=== PATIENT | male | born 1935 | race Caucasian/White ===

== ENCOUNTER → 2020-06-02 08:50 | Outpatient (BNVA) | payer MEDICARE, OTHER, SELFPAY | PROVIDERS: Visit Provider Internal Medicine | DX: I48.20 Chronic atrial fibrillation, unspecified (principal); Z51.81 Encounter for therapeutic drug level monitoring; Z79.01 Long term (current) use of 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s | CPT/HCPCS: 85610; 99211 ==

== ENCOUNTER → 2020-06-13 09:23 | Outpatient (BNVA) | payer MEDICARE, OTHER, SELFPAY | PROVIDERS: Visit Provider Surgery | DX: Z76.89 Persons encountering health services in other specified circumstances (principal) ==

== ENCOUNTER → 2020-06-30 09:02 | Outpatient (BNVA) | payer MEDICARE, OTHER, SELFPAY | PROVIDERS: Visit Provider Internal Medicine | DX: I48.20 Chronic atrial fibrillation, unspecified (principal); Z51.81 Encounter for therapeutic drug level monitoring; Z79.01 Long term (current) use of 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s | CPT/HCPCS: 85610; 99211 ==

== ENCOUNTER → 2020-07-28 08:21 | Outpatient (BNVA) | payer MEDICARE, OTHER, SELFPAY | PROVIDERS: Visit Provider Internal Medicine | DX: I48.20 Chronic atrial fibrillation, unspecified (principal); Z51.81 Encounter for therapeutic drug level monitoring; Z79.01 Long term (current) use of 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s | CPT/HCPCS: 85610; 99211 ==

== ENCOUNTER → 2020-08-25 08:55 | Outpatient (BNVA) | payer MEDICARE, OTHER, SELFPAY | PROVIDERS: Visit Provider Internal Medicine | DX: I48.20 Chronic atrial fibrillation, unspecified (principal); Z51.81 Encounter for therapeutic drug level monitoring; Z79.01 Long term (current) use of 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s | CPT/HCPCS: 85610; 99211 ==

== ENCOUNTER → 2020-09-30 08:44 | Outpatient (BNVA) | payer MEDICARE, OTHER, SELFPAY | PROVIDERS: PCP Internal Medicine; Visit Provider Internal Medicine | DX: I48.20 Chronic atrial fibrillation, unspecified (principal); Z51.81 Encounter for therapeutic drug level monitoring; Z79.01 Long term (current) use of 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s | CPT/HCPCS: 85610; 99211 ==

== ENCOUNTER → 2020-10-28 08:57 | Outpatient (BNVA) | payer MEDICARE, OTHER, SELFPAY | PROVIDERS: PCP Internal Medicine; Visit Provider Internal Medicine | DX: I48.20 Chronic atrial fibrillation, unspecified (principal); Z51.81 Encounter for therapeutic drug level monitoring; Z79.01 Long term (current) use of 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s | CPT/HCPCS: 85610; 99211 ==

== ENCOUNTER → 2020-12-02 08:37 | Outpatient (BNVA) | payer MEDICARE, OTHER, SELFPAY | PROVIDERS: PCP Internal Medicine; Visit Provider Internal Medicine | DX: I48.20 Chronic atrial fibrillation, unspecified (principal); Z51.81 Encounter for therapeutic drug level monitoring; Z79.01 Long term (current) use of 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s | CPT/HCPCS: 85610; 99211 ==

== ENCOUNTER 2020-12-05 09:00 | Outpatient (REF) | payer MEDICARE, OTHER, SELFPAY ==
[2020-12-05 11:28] LABS: MANUAL DIFF FLAG NO
[2020-12-05 11:41] LABS: Basophils Percent Auto 0.5 % (0-2); Eosinophils Absolute Auto 0.1 X10*3/uL (0.0-0.4); Eosinophils Percent Auto 1.4 % (0-4); Hematocrit 42.9 % (42-52); Hemoglobin 13.6 g/dl (14.0-18.0); Imm Gran Abs Auto 0.01 X10*3/uL (0.00-0.03); Imm Gran Pct Auto 0.2 % (0.0-0.4); Lymphocytes Absolute Auto 2.1 X10*3/uL (1.2-4.9); Lymphocytes Percent Auto 37.5 % (20-40); Mean Corpuscular HGB Conc 31.7 g/dl (31.0-36.0); Mean Corpuscular Hemoglobin 28.8 pg (27.0-33.0); Mean Corpuscular Volume 90.9 fL (80-98); Mean Platelet Volume 10.7 fL (9.4-12.4); Monocytes Absolute Auto 0.4 X10*3/uL (0.1-1.2); Monocytes Percent Auto 7.2 % (2-11); Neutrophils Percent Auto 53.2 % (45-73); Platelet Count 200 X10*3/uL (160-400); Red Blood Count 4.72 X10*6/uL (4.60-5.80); Red Cell Distribution Width 13.4 % (11.0-16.0); White Blood Count 5.6 X10*3/uL (4.8-10.8)
[2020-12-05 11:51] LABS: Alanine Aminotransferase 19 U/L (0-40); Albumin Level 4.1 g/dL (3.5-5.0); Alkaline Phosphatase 39 U/L (39-117); Anion Gap 13 (12-20); Aspartate Amino Transferase 25 U/L (5-37); Bilirubin Total 0.8 mg/dL (0.0-1.0); Blood Urea Nitrogen 17 mg/dL (9-16); Calcium 8.8 mg/dL (8.4-10.2); Carbon Dioxide 30 mmol/L (22-29); Chloride 100 mmol/L (96-108); Cholesterol 156 mg/dL; Estimated Glomerular Filt Rate > 60; Glucose Fasting 99 mg/dL (60-99); HDL Cholesterol 51 mg/dL; LDL Cholesterol Calculated 93 mg/dl; Potassium 4.2 mmol/L (3.3-5.1); Sodium 139 mmol/L (135-145); Triglycerides 60 mg/dL
== END 2020-12-05 09:01 | disposition home or self-care (01) ==
LOC: HO.HMGCLDS 09:00
PROVIDERS: PCP Internal Medicine; Visit Provider Internal Medicine
DX: Z00.00 Encounter for general adult medical examination without abnormal findings (principal); E11.9 Type 2 diabetes mellitus without complications; E03.9 Hypothyroidism, unspecified
CPT/HCPCS: 36415; 80053; 80061; 84443; 85025

== ENCOUNTER 2020-12-10 12:01 | Outpatient (REF) | payer MEDICARE, OTHER, SELFPAY ==
--- NOTE | ~2020-12-10 | XR_ITS ---
EXAMINATION: XR WRIST, LEFT CLINICAL INFORMATION: Pain COMPARISON: 05/06/2020 TECHNIQUE: PA, lateral, oblique, and scaphoid views of the left wrist. FINDINGS: No acute fracture or dislocation. Severe degenerative changes of the triscaphe joint with [id number] contact and marginal osteophytes with periarticular heterotopic calcification. Moderate first CMC arthrosis. Soft tissues unremarkable. 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
== END 2020-12-10 12:02 | disposition home or self-care (01) ==
LOC: HO.XRAY 12:01
PROVIDERS: PCP Internal Medicine; Visit Provider Internal Medicine
DX: M25.532 Pain in left wrist (principal); M18.12 Unilateral primary osteoarthritis of first carpometacarpal joint, left hand; E11.9 Type 2 diabetes mellitus without complications
CPT/HCPCS: 73100

== ENCOUNTER → 2020-12-30 09:11 | Outpatient (BNVA) | payer MEDICARE, OTHER, SELFPAY | PROVIDERS: PCP Internal Medicine; Visit Provider Internal Medicine | DX: I48.20 Chronic atrial fibrillation, unspecified (principal); Z51.81 Encounter for therapeutic drug level monitoring; Z79.01 Long term (current) use of 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s | CPT/HCPCS: 85610; 99211 ==

== ENCOUNTER → 2021-01-12 13:19 | Outpatient (BNVA) | payer MEDICARE, OTHER, SELFPAY | PROVIDERS: PCP Internal Medicine; Referring Provider Internal Medicine; Visit Provider Internal Medicine Cardiovascular Disease | DX: Z45.018 Encounter for adjustment and management of other part of cardiac pacemaker (principal); I48.91 Unspecified atrial fibrillation; I10 Essential (primary) hypertension | CPT/HCPCS: 93005; 99202 ==

== ENCOUNTER → 2021-01-14 12:58 | Outpatient (REF) | payer MEDICARE, OTHER, SELFPAY ==
--- NOTE | 2021-01-14 13:02 | CA_ITS ---
Transthoracic Echocardiogram Patient (Last, First, Middle): Zander Espinal L Gender: Male Date of : 1935 Age: 85 Procedure Date: 01/14/2021 Procedure Type: Transthoracic Echocardiogram Location: OP Height: 190.5 cm Weight: 99.79 kg BSA: 2.29 m2 Heart Rate: bpm BP: 112 / 60 mmHg Shuttlecock Assembler: MAYE/JUNIOR Referring MD: Delfino Fry MD Packing Tractor Machine Operator: Silvino Wilson MD Symptoms: I42.9 - Cardiomyopathy, unspecified Study Quality: Good ECG Rhythm: Atrial Fibrillation Conclusions: - 1. Normal LV systolic function 2. Mildly to moderately dilated left atrium 3. Mild aortic regurgitation 4. Mild mitral regurgitation 5. Normal RV systolic pressure 6. No pericardial effusion Findings Left Ventricle Normal left ventricular size, thickness, and systolic function. The visually estimated ejection fraction is between 55-60%. Diastolic function is indeterminate on the basis of available data. Right Ventricle The right ventricle was not well visualized. Atria The left atrium is moderately dilated. There is lipomatous hypertrophy of the interatrial septum. There is no evidence of interatrial shunt. The right atrium is mildly dilated. Aortic Valve There is mild calcification of the aortic valve. There is mild thickening of the aortic valve. There is no aortic valve stenosis. There is mild aortic valve regurgitation. Mitral Valve There is mild anterior and posterior mitral leaflet thickening. There is mild mitral annular calcification. There is mild mitral valve regurgitation. There is no mitral valve stenosis. Pulmonic Valve The pulmonic valve was not well visualized. Tricuspid Valve Likely normal tricuspid valve structure and function. There is mild tricuspid valve regurgitation. The right ventricular systolic pressure is normal. The right ventricular systolic pressure is 33 mmHg. Normal right atrial pressure. There is no evidence of pulmonary hypertension. Great Vessels All visible segments of the aorta are normal in size. The pulmonary artery was not well visualized. Venous The inferior vena cava is normal in size and collapses greater than 50% with inspiration. Pericardium/Pleural There is no evidence of pericardial effusion. Prior Study Comparison No significant change compared to prior study dated: 12/13/2016. Measurements 2D Linear Measurements IVSd: 1.14 0.6-0.9/0.6-1.0 cm LVIDd: 5.11 3.9-5.3/4.2-5.9 cm LVIDd Index: 2.23 2.4-3.2/2.2-3.1 cm/m2 LVIDs: 3.79 2.0-3.6 cm LVPWd: 1.11 0.7-1.1 cm Ao Root: 3.40 2.1-3.5 cm LA Diam: 4.80 2.7-3.8/3.0-4.0 cm LAIDs Index: 2.10 1.5-2.3 cm/m2 LV Mass: 275.87 67-162/88-224 g LV Mass Index: 120.47 43-95/49-115 g/m2 LVOT Diam: 2.00 3.0+(-)1.3 cm 2D Systolic Function EF 4C: 57.00 >55% EF 2C: 57.00 >55% EF BiP: 58.10 >55% Mitral Valve E'Lateral: 8.49 E'Medial: 9.14 Aortic Valve AoV Pk Jorgito: 1.45 AoV Mn Jorgito: 1.02 AoV VTI: 0.32 AoV Pk Grad: 8.00 Aov Mn Grad: 5.00 AMBER Cont.VTI: 2.37 LVOT LVOT Pk Jorgito: 1.06 LVOT Mn Jorgito: 0.77 LVOT VTI: 0.24 LVOT Pk Grad: 4.00 LVOT Mn Grad: 3.00 LVOT Diam: 2.00 LVOT Area: 3.14 Diastolic Function E'Medial: 9.14 E' Laterial: 8.49 Tricuspid Valve TR Pk Jorgito: 2.74 TR Pk Grad: 30.00 RA Press: 3.00 RVSP: 33.00 Great Vessels Aorta Ao Root-2D: 3.40 2.0-3.7 cm Ao Asc: 3.90 2.1-3.4 cm Ao Arch: 3.00 Updated in Other Vendor System with Status of Final Silvino Wilson MD electronically signed on 01/15/2021 5:23:29 PM with status of Final
== END ==
LOC: HO.CARD 12:58
PROVIDERS: Visit Provider Internal Medicine Cardiovascular Disease
DX: I42.9 Cardiomyopathy, unspecified (principal); I48.91 Unspecified atrial fibrillation
CPT/HCPCS: 93306

== ENCOUNTER → 2021-01-27 08:48 | Outpatient (BNVA) | payer MEDICARE, OTHER, SELFPAY | PROVIDERS: PCP Internal Medicine; Visit Provider Internal Medicine | DX: I48.20 Chronic atrial fibrillation, unspecified (principal); Z51.81 Encounter for therapeutic drug level monitoring; Z79.01 Long term (current) use of 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s | CPT/HCPCS: 85610; 99211 ==

== ENCOUNTER → 2021-02-24 09:06 | Outpatient (BNVA) | payer MEDICARE, OTHER, SELFPAY | PROVIDERS: PCP Internal Medicine; Visit Provider Internal Medicine | DX: I48.20 Chronic atrial fibrillation, unspecified (principal); Z51.81 Encounter for therapeutic drug level monitoring; Z79.01 Long term (current) use of 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s | CPT/HCPCS: 85610; 99211 ==

== ENCOUNTER → 2021-03-02 08:37 | Outpatient (BNVA) | payer MEDICARE, OTHER, SELFPAY | PROVIDERS: PCP Internal Medicine; Visit Provider Internal Medicine | DX: I48.20 Chronic atrial fibrillation, unspecified (principal); Z51.81 Encounter for therapeutic drug level monitoring; Z79.01 Long term (current) use of 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s | CPT/HCPCS: 85610; 99211 ==

== ENCOUNTER → 2021-03-17 08:45 | Outpatient (BNVA) | payer MEDICARE, OTHER, SELFPAY | PROVIDERS: PCP Internal Medicine; Visit Provider Internal Medicine | DX: I48.20 Chronic atrial fibrillation, unspecified (principal); Z79.01 Long term (current) use of 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s; Z51.81 Encounter for therapeutic drug level monitoring | CPT/HCPCS: 85610; 99211 ==

== ENCOUNTER → 2021-04-14 08:14 | Outpatient (BNVA) | payer MEDICARE, OTHER, SELFPAY | PROVIDERS: PCP Internal Medicine; Visit Provider Internal Medicine | DX: I48.20 Chronic atrial fibrillation, unspecified (principal); Z51.81 Encounter for therapeutic drug level monitoring; Z79.01 Long term (current) use of 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s | CPT/HCPCS: 85610; 99211 ==

== ENCOUNTER → 2021-05-12 08:30 | Outpatient (BNVA) | payer MEDICARE, OTHER, SELFPAY | PROVIDERS: PCP Nurse Practitioner Family; Visit Provider Internal Medicine | DX: I48.20 Chronic atrial fibrillation, unspecified (principal); Z51.81 Encounter for therapeutic drug level monitoring; Z79.01 Long term (current) use of 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s | CPT/HCPCS: 85610; 99211 ==

== ENCOUNTER → 2021-05-26 09:14 | Outpatient (BNVA) | payer MEDICARE, OTHER, SELFPAY | PROVIDERS: PCP Nurse Practitioner Family; Visit Provider Internal Medicine | DX: I48.20 Chronic atrial fibrillation, unspecified (principal); Z51.81 Encounter for therapeutic drug level monitoring; Z79.01 Long term (current) use of 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s | CPT/HCPCS: 85610; 99211 ==

== ENCOUNTER 2021-06-15 06:49 | Outpatient (REF) | payer MEDICARE, OTHER, SELFPAY ==
[2021-06-15 11:43] LABS: Appearance Urine CLEAR; Color Urine YELLOW; Glucose Urine UA NEG (NEG); Leukocyte Esterase Urine NEG (NEG); Nitrite Urine NEG (NEG); Specific Gravity - Urine 1.015 (1.005-1.025); Urine Blood NEG (NEG); Urine Ketones NEG (NEG); Urine Protein NEG (NEG-TRACE)
[2021-06-15 12:02] LABS: Alanine Aminotransferase 22 U/L (0-40); Alkaline Phosphatase 37 U/L (39-117); Anion Gap 12 (12-20); Aspartate Amino Transferase 26 U/L (5-37); Bilirubin Total 1.1 mg/dL (0.0-1.0); Blood Urea Nitrogen 14 mg/dL (9-16); Calcium 8.9 mg/dL (8.4-10.2); Carbon Dioxide 29 mmol/L (22-29); Chloride 101 mmol/L (96-108); Cholesterol 160 mg/dL; Estimated Glomerular Filt Rate > 60; Glucose Fasting 103 mg/dL (60-99); HDL Cholesterol 50 mg/dL; LDL Cholesterol Calculated 94 mg/dl; Potassium 3.7 mmol/L (3.3-5.1); Sodium 138 mmol/L (135-145); Total Protein 6.8 g/dL (6.5-8.0); Triglycerides 80 mg/dL
[2021-06-15 12:26] LABS: TSH reflex Free T4 2.95 uIU/mL (0.32-4.0)
== END 2021-06-15 06:50 | disposition home or self-care (01) ==
LOC: HO.HMGCLDS 06:49
PROVIDERS: PCP Nurse Practitioner Family; Visit Provider Nurse Practitioner Family
DX: Z00.00 Encounter for general adult medical examination without abnormal findings (principal)
CPT/HCPCS: 36415; 80053; 80061; 81003; 84443

== ENCOUNTER 2021-06-16 07:04 | Outpatient (REF) | payer MEDICARE, OTHER, SELFPAY ==
[2021-06-16 12:17] LABS: Cholesterol 168 mg/dL; HDL Cholesterol 52 mg/dL; LDL Cholesterol Calculated 101 mg/dl; Triglycerides 77 mg/dL
== END 2021-06-16 07:05 | disposition home or self-care (01) ==
LOC: HO.HMGCLDS 07:04
PROVIDERS: PCP Nurse Practitioner Family; Visit Provider Internal Medicine
DX: Z12.5 Encounter for screening for malignant neoplasm of prostate (principal); E11.9 Type 2 diabetes mellitus without complications
CPT/HCPCS: 36415; 80061; 84153

== ENCOUNTER → 2021-06-24 08:10 | Outpatient (BNVA) | payer MEDICARE, OTHER, SELFPAY | PROVIDERS: PCP Nurse Practitioner Family; Visit Provider Internal Medicine | DX: I48.20 Chronic atrial fibrillation, unspecified (principal); Z51.81 Encounter for therapeutic drug level monitoring; Z79.01 Long term (current) use of 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s | CPT/HCPCS: 85610; 99211 ==

== ENCOUNTER → 2021-07-09 08:38 | Outpatient (BNVA) | payer MEDICARE, OTHER, SELFPAY | PROVIDERS: PCP Nurse Practitioner Family; Referring Provider Nurse Practitioner Family; Visit Provider Internal Medicine Cardiovascular Disease | DX: I48.91 Unspecified atrial fibrillation (principal); I10 Essential (primary) hypertension | CPT/HCPCS: 99212 ==

== ENCOUNTER → 2021-07-15 08:20 | Outpatient (BNVA) | payer MEDICARE, OTHER, SELFPAY | PROVIDERS: PCP Nurse Practitioner Family; Visit Provider Internal Medicine | DX: I48.20 Chronic atrial fibrillation, unspecified (principal); Z51.81 Encounter for therapeutic drug level monitoring; Z79.01 Long term (current) use of 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s | CPT/HCPCS: 85610; 99211 ==

== ENCOUNTER → 2021-08-17 08:53 | Outpatient (BNVA) | payer MEDICARE, OTHER, SELFPAY | PROVIDERS: PCP Nurse Practitioner Family; Visit Provider Internal Medicine | DX: I48.20 Chronic atrial fibrillation, unspecified (principal); Z51.81 Encounter for therapeutic drug level monitoring; Z79.01 Long term (current) use of 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s | CPT/HCPCS: 85610; 99211 ==

== ENCOUNTER → 2021-09-14 08:58 | Outpatient (BNVA) | payer MEDICARE, OTHER, SELFPAY | PROVIDERS: PCP Nurse Practitioner Family; Visit Provider Internal Medicine | DX: I48.20 Chronic atrial fibrillation, unspecified (principal); Z51.81 Encounter for therapeutic drug level monitoring; Z79.01 Long term (current) use of 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s | CPT/HCPCS: 85610; 99211 ==

== ENCOUNTER → 2021-10-12 08:53 | Outpatient (BNVA) | payer MEDICARE, OTHER, SELFPAY | PROVIDERS: PCP Nurse Practitioner Family; Visit Provider Internal Medicine | DX: I48.20 Chronic atrial fibrillation, unspecified (principal); Z51.81 Encounter for therapeutic drug level monitoring; Z79.01 Long term (current) use of 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s | CPT/HCPCS: 85610; 99211 ==

== ENCOUNTER → 2021-11-09 08:28 | Outpatient (BNVA) | payer MEDICARE, OTHER, SELFPAY | PROVIDERS: PCP Nurse Practitioner Family; Visit Provider Internal Medicine | DX: I48.20 Chronic atrial fibrillation, unspecified (principal); Z51.81 Encounter for therapeutic drug level monitoring; Z79.01 Long term (current) use of 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s | CPT/HCPCS: 85610 ==

== ENCOUNTER → 2021-12-07 08:44 | Outpatient (BNVA) | payer MEDICARE, OTHER, SELFPAY | PROVIDERS: PCP Nurse Practitioner Family; Visit Provider Internal Medicine | DX: I48.20 Chronic atrial fibrillation, unspecified (principal); Z79.01 Long term (current) use of 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s; Z51.81 Encounter for therapeutic drug level monitoring | CPT/HCPCS: 85610; 99211 ==

== ENCOUNTER → 2022-01-11 09:10 | Outpatient (BNVA) | payer MEDICARE, OTHER, SELFPAY | PROVIDERS: PCP Nurse Practitioner Family; Visit Provider Internal Medicine | DX: I48.20 Chronic atrial fibrillation, unspecified (principal); Z79.01 Long term (current) use of 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s; Z51.81 Encounter for therapeutic drug level monitoring | CPT/HCPCS: 85610; 99211 ==

== ENCOUNTER → 2022-02-15 08:58 | Outpatient (BNVA) | payer MEDICARE, OTHER, SELFPAY | PROVIDERS: PCP Nurse Practitioner Family; Visit Provider Internal Medicine | DX: I48.20 Chronic atrial fibrillation, unspecified (principal); Z79.01 Long term (current) use of 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s; Z51.81 Encounter for therapeutic drug level monitoring | CPT/HCPCS: 85610; 99211 ==

== ENCOUNTER → 2022-02-18 08:33 | Outpatient (BNVA) | payer MEDICARE, OTHER, SELFPAY | PROVIDERS: PCP Nurse Practitioner Family; Visit Provider Internal Medicine | DX: I48.20 Chronic atrial fibrillation, unspecified (principal); Z51.81 Encounter for therapeutic drug level monitoring; Z79.01 Long term (current) use of 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s | CPT/HCPCS: 85610; 99211 ==

== ENCOUNTER → 2022-03-01 09:15 | Outpatient (BNVA) | payer MEDICARE, OTHER, SELFPAY | PROVIDERS: PCP Nurse Practitioner Family; Visit Provider Internal Medicine | DX: I48.20 Chronic atrial fibrillation, unspecified (principal); Z51.81 Encounter for therapeutic drug level monitoring; Z79.01 Long term (current) use of 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s | CPT/HCPCS: 85610; 99211 ==

== ENCOUNTER → 2022-03-15 08:47 | Outpatient (BNVA) | payer MEDICARE, OTHER, SELFPAY | PROVIDERS: PCP Nurse Practitioner Family; Visit Provider Internal Medicine | DX: I48.20 Chronic atrial fibrillation, unspecified (principal); Z79.01 Long term (current) use of 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s; Z51.81 Encounter for therapeutic drug level monitoring | CPT/HCPCS: 85610; 99211 ==

== ENCOUNTER → 2022-03-29 08:56 | Outpatient (BNVA) | payer MEDICARE, OTHER, SELFPAY | PROVIDERS: PCP Nurse Practitioner Family; Visit Provider Internal Medicine | DX: I48.20 Chronic atrial fibrillation, unspecified (principal); Z79.01 Long term (current) use of 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s; Z51.81 Encounter for therapeutic drug level monitoring | CPT/HCPCS: 85610; 99211 ==

== ENCOUNTER → 2022-04-13 08:24 | Outpatient (BNVA) | payer MEDICARE, OTHER, SELFPAY | PROVIDERS: PCP Nurse Practitioner Family; Visit Provider Internal Medicine | DX: I48.20 Chronic atrial fibrillation, unspecified (principal); Z79.01 Long term (current) use of 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s; Z51.81 Encounter for therapeutic drug level monitoring | CPT/HCPCS: 85610; 99211 ==

== ENCOUNTER 2022-04-23 08:10 | Outpatient (REF) | payer MEDICARE, OTHER, SELFPAY ==
[2022-04-23 11:24] LABS: MANUAL DIFF FLAG NO
[2022-04-23 11:26] LABS: Appearance Urine Clear; Color Urine Yellow; Glucose Urine UA Negative (Negative); Leukocyte Esterase Urine Negative (Negative); Nitrite Urine Negative (Negative); PH 8.5 (5.0-9.0); Specific Gravity - Urine 1.015 (1.005-1.025); Urine Blood Negative (Negative); Urine Ketones Negative (Negative); Urine Protein Trace mg/dL (Neg-Trace)
[2022-04-23 11:32] LABS: Basophils Percent Auto 0.3 % (0-2); Eosinophils Absolute Auto 0.1 X10*3/uL (0.0-0.4); Eosinophils Percent Auto 2.4 % (0-4); Hematocrit 40.7 % (42.0-52.0); Imm Gran Abs Auto 0.01 X10*3/uL (0.00-0.03); Imm Gran Pct Auto 0.2 % (0.0-0.4); Lymphocytes Absolute Auto 2.6 X10*3/uL (1.2-4.9); Lymphocytes Percent Auto 45.5 % (20-40); Mean Corpuscular HGB Conc 31.9 g/dl (31.0-36.0); Mean Corpuscular Hemoglobin 28.8 pg (27.0-33.0); Mean Corpuscular Volume 90.2 fL (80.0-98.0); Mean Platelet Volume 10.2 fL (9.4-12.4); Monocytes Absolute Auto 0.4 X10*3/uL (0.1-1.2); Monocytes Percent Auto 7.2 % (2-11); Neutrophils Absolute Auto 2.6 x10*3/uL (2.0-8.3); Neutrophils Percent Auto 44.4 % (45-73); Platelet Count 213 X10*3/uL (160-400); Red Blood Count 4.51 X10*6/uL (4.60-5.80); White Blood Count 5.8 X10*3/uL (4.8-10.8)
[2022-04-23 11:35] LABS: D Dimer High Sensitivity 165 NG/ML
[2022-04-23 11:44] LABS: B Type Natriuretic Peptide 80 pg/mL (<100)
[2022-04-23 11:45] LABS: Alanine Aminotransferase 20 U/L (0-40); Alkaline Phosphatase 41 U/L (39-117); Anion Gap 13 (12-20); Aspartate Amino Transferase 24 U/L (5-37); Bilirubin Total 0.9 mg/dL (0.0-1.0); Blood Urea Nitrogen 17 mg/dL (9-16); Calcium 9.3 mg/dL (8.4-10.2); Carbon Dioxide 30 mmol/L (22-29); Chloride 100 mmol/L (96-108); Cholesterol 157 mg/dL; Estimated Glomerular Filt Rate > 60; Glucose Fasting 96 mg/dL (60-99); HDL Cholesterol 49 mg/dL; LDL Cholesterol Calculated 95 mg/dl; Sodium 139 mmol/L (135-145); Total Protein 7.1 g/dL (6.5-8.0); Triglycerides 66 mg/dL
[2022-04-23 12:11] LABS: Prostate Specific Antigen Scr 3.17 ng/mL (<0.05-4.0); TSH reflex Free T4 1.43 uIU/mL (0.32-4.0)
== END 2022-04-23 08:11 | disposition home or self-care (01) ==
LOC: HO.HMGCLDS 08:10
PROVIDERS: PCP Nurse Practitioner Family; Visit Provider Nurse Practitioner Family
DX: Z12.5 Encounter for screening for malignant neoplasm of prostate (principal); E78.5 Hyperlipidemia, unspecified; I10 Essential (primary) hypertension; M79.89 Other specified soft tissue disorders
CPT/HCPCS: 36415; 80053; 80061; 81003; 83880; 84153; 84443; 85025; 85379

== ENCOUNTER → 2022-05-04 08:51 | Outpatient (BNVA) | payer MEDICARE, OTHER, SELFPAY | PROVIDERS: PCP Nurse Practitioner Family; Visit Provider Internal Medicine | DX: I48.20 Chronic atrial fibrillation, unspecified (principal); Z79.01 Long term (current) use of 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s; Z51.81 Encounter for therapeutic drug level monitoring | CPT/HCPCS: 85610; 99211 ==

== ENCOUNTER → 2022-05-14 08:25 | Outpatient (BNVA) | payer MEDICARE, OTHER, SELFPAY | PROVIDERS: PCP Nurse Practitioner Family; Visit Provider Internal Medicine | DX: I48.20 Chronic atrial fibrillation, unspecified (principal); Z79.01 Long term (current) use of 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s; Z51.81 Encounter for therapeutic drug level monitoring | CPT/HCPCS: 85610; 99211 ==

== ENCOUNTER → 2022-06-11 09:04 | Outpatient (BNVA) | payer MEDICARE, OTHER, SELFPAY | PROVIDERS: PCP Nurse Practitioner Family; Visit Provider Internal Medicine | DX: I48.20 Chronic atrial fibrillation, unspecified (principal); Z79.01 Long term (current) use of 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s; Z51.81 Encounter for therapeutic drug level monitoring | CPT/HCPCS: 85610; 99211 ==

== ENCOUNTER → 2022-07-08 08:15 | Outpatient (BNVA) | payer MEDICARE, OTHER, SELFPAY | PROVIDERS: PCP Nurse Practitioner Family; Visit Provider Internal Medicine | DX: I83.11 Varicose veins of right lower extremity with inflammation (principal); I73.9 Peripheral vascular disease, unspecified; Z51.81 Encounter for therapeutic drug level monitoring; Z79.01 Long term (current) use of 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s | CPT/HCPCS: 85610; 99211; 99212 ==

== ENCOUNTER → 2022-07-12 09:08 | Outpatient (BNVA) | payer MEDICARE, OTHER, SELFPAY | PROVIDERS: PCP Nurse Practitioner Family; Referring Provider Nurse Practitioner Family; Visit Provider Internal Medicine Cardiovascular Disease | DX: I48.20 Chronic atrial fibrillation, unspecified (principal); R07.9 Chest pain, unspecified; I10 Essential (primary) hypertension; Z79.01 Long term (current) use of 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s | CPT/HCPCS: 93005; 99212 ==

== ENCOUNTER → 2022-08-06 09:08 | Outpatient (REF) | payer MEDICARE, OTHER, SELFPAY ==
--- NOTE | ~2022-08-06 | NM_ITS ---
Myocardial perfusion study Indication: Chest pain to evaluate for myocardial ischemia Technique: The patient was brought in for a Lexiscan perfusion study on 08/06/2022. Patient performed low-level exercise and was injected 0.4 mg of Lexiscan intravenously. Within a minute of injection, 35 mCi of sestamibi was given intravenously. Images were obtained using the SPECT gamma camera interlaced with the gating device. Images were obtained in supine position. Resting perfusion study was performed on 08/10/2022. Patient was administered 35 mCi of sestamibi intravenously at rest. Images were then obtained in supine position. Images obtained with and without CT attenuation. Total DLP 93 mGy-cm. Images were processed with the software and compared side to side in short axis, horizontal long axis and vertical long axis views. Findings: The stress perfusion study showed non attenuated images show the basal inferior wall of the LV myocardium. Remainder of the LV myocardium is normally perfused. Attenuation corrected images show normal uptake of radiotracer in all segments of LV myocardium.. The gated study shows normal LV function with calculated LVEF of 71%. LV cavity is normal in size. The gated study shows normal systolic wall thickening and contraction of segments. Resting study shows no change in perfusion imaging compared to stress perfusion study. Gating at rest reveals normal systolic wall motion with ejection fraction at 70%. The findings are consistent with normal myocardial perfusion. NM/NM bran perf SPECT rest & str Impression: 1. Myocardial perfusion imaging study shows normal myocardial perfusion 2. Gated LVEF is 70% 3. Transient ischemic dilatation not present EKG is nondiagnostic for ischemia
--- NOTE | 2022-08-06 09:12 | CA_ITS ---
Acquisition Time: 2022-08-06 09:29:47 Total Exercise Time: 00:02:00 Test Indications: CP, AFIB Medications: SEE CHART Protocol: LEXISCAN Max HR: 146 BPM 108% of Pred: 134 BPM Max BP: 130/068 mmHG Max Work Load: 1.0 METS Pharmacological stress test with Lexiscan injection, while sitting and kicking his legs, without anginal symptoms, with afib RVR post injection, with normotensive response to injection, with nondiagnostic EKG for ischemia. In he reported leg heaviness and was treated with Aminophylline 75mg IVP to reverse Lexiscan with improvement in symptom. Nuclear images pending. Test reviewed with Dr Wilson. Note: Test originally ordered as an exercise nuclear test with modified Se protocol. Pt ambulates with cane and expressed much concern about ability to walk on treadmill. Baseline rhythm afib with isolated V paced beats. Test changed to a pharmacolgoical nuclear stress test. Referred By: Delfino Fry Overread By: YESSY GUZMÁN
== END ==
LOC: HO.CARD 09:08
PROVIDERS: Visit Provider Internal Medicine Cardiovascular Disease
DX: R07.9 Chest pain, unspecified (principal)
CPT/HCPCS: 78452; 93017; A9500; J2785

== ENCOUNTER → 2022-08-12 08:59 | Outpatient (BNVA) | payer MEDICARE, OTHER, SELFPAY | PROVIDERS: PCP Nurse Practitioner Family; Visit Provider Internal Medicine | DX: I48.20 Chronic atrial fibrillation, unspecified (principal); Z79.01 Long term (current) use of 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s; Z51.81 Encounter for therapeutic drug level monitoring | CPT/HCPCS: 85610; 99211 ==

== ENCOUNTER 2022-08-18 10:11 | Outpatient (REF) | payer MEDICARE, OTHER, SELFPAY ==
--- NOTE | ~2022-08-18 | US_ITS ---
EXAMINATION: NONINVASIVE ASSESSMENT OF THE ARTERIES OF BOTH LOWER EXTREMITIES WITH PVR EXAM AND BILATERAL LOWER EXTREMITY DUPLEX Toma Barreto MD CLINICAL INFORMATION: Peripheral vascular disease TECHNIQUE: Ankle pulse volume recordings, ankle pressure measurements and ankle brachial indices were obtained of the lower extremity arterial system bilaterally in addition to duplex Doppler techniques with wave form analysis and measurement of velocities in the common femoral, profunda femoral, superficial femoral, popliteal and tibial arteries. The study was performed only at rest. COMPARISON: None FINDINGS: a) AT REST: RIGHT LE. The right ankle-brachial index is: 1.08 * >0.97-1.25 = normal - no significant arterial disease * 0.75-0.96 = mild peripheral arterial disease * 0.5-0.74 = moderate peripheral arterial disease * <0.50 = severe peripheral arterial disease 2. Right ankle pressure: normal. 3. Right ankle PVR waveform: normal. 4. Right direct duplex Doppler findings: Common femoral artery: 94 cm/s, Multiphasic Profunda femoris artery: 53 cm/s, Multiphasic Superficial femoral artery (proximal): 86 cm/s, Multiphasic Superficial femoral artery (mid): 77 cm/s, Multiphasic Superficial femoral artery (distal): 63 cm/s, Multiphasic Proximal Popliteal artery: 40 cm/s, Multiphasic Mid posterior tibial artery: 105 cm/s, Multiphasic LEFT LE. The left ankle-brachial index is: 1.13 * >0.97-1.25 = normal - no significant arterial disease * 0.75-0.96 = mild peripheral arterial disease * 0.5-0.74 = moderate peripheral arterial disease * <0.50 = severe peripheral arterial disease 2. Left ankle pressure: normal. 3. Left ankle PVR waveform: normal. 4. Left direct duplex Doppler findings: Common femoral artery: 109 cm/s, Multiphasic Profunda femoris artery: 58 cm/s, Multiphasic Superficial femoral artery (proximal): 94 cm/s, Multiphasic Superficial femoral artery (mid): 82 cm/s, Multiphasic Superficial femoral artery (distal): 60 cm/s, Multiphasic Proximal Popliteal artery: 55 cm/s, Multiphasic Mid posterior tibial artery: 100 cm/s, Multiphasic US/US arterial duplex LE BI IMPRESSION: RIGHT LEG: No hemodynamically significant stenosis in the right lower extremity. LEFT LEG: No hemodynamically significant stenosis in the left lower extremity.
--- NOTE | ~2022-08-18 | US_ITS ---
EXAMINATION: NONINVASIVE ASSESSMENT OF THE ARTERIES OF BOTH LOWER EXTREMITIES WITH PVR EXAM AND BILATERAL LOWER EXTREMITY DUPLEX Toma Barreto MD CLINICAL INFORMATION: Peripheral vascular disease TECHNIQUE: Ankle pulse volume recordings, ankle pressure measurements and ankle brachial indices were obtained of the lower extremity arterial system bilaterally in addition to duplex Doppler techniques with wave form analysis and measurement of velocities in the common femoral, profunda femoral, superficial femoral, popliteal and tibial arteries. The study was performed only at rest. COMPARISON: None FINDINGS: a) AT REST: RIGHT LE. The right ankle-brachial index is: 1.08 * >0.97-1.25 = normal - no significant arterial disease * 0.75-0.96 = mild peripheral arterial disease * 0.5-0.74 = moderate peripheral arterial disease * <0.50 = severe peripheral arterial disease 2. Right ankle pressure: normal. 3. Right ankle PVR waveform: normal. 4. Right direct duplex Doppler findings: Common femoral artery: 94 cm/s, Multiphasic Profunda femoris artery: 53 cm/s, Multiphasic Superficial femoral artery (proximal): 86 cm/s, Multiphasic Superficial femoral artery (mid): 77 cm/s, Multiphasic Superficial femoral artery (distal): 63 cm/s, Multiphasic Proximal Popliteal artery: 40 cm/s, Multiphasic Mid posterior tibial artery: 105 cm/s, Multiphasic LEFT LE. The left ankle-brachial index is: 1.13 * >0.97-1.25 = normal - no significant arterial disease * 0.75-0.96 = mild peripheral arterial disease * 0.5-0.74 = moderate peripheral arterial disease * <0.50 = severe peripheral arterial disease 2. Left ankle pressure: normal. 3. Left ankle PVR waveform: normal. 4. Left direct duplex Doppler findings: Common femoral artery: 109 cm/s, Multiphasic Profunda femoris artery: 58 cm/s, Multiphasic Superficial femoral artery (proximal): 94 cm/s, Multiphasic Superficial femoral artery (mid): 82 cm/s, Multiphasic Superficial femoral artery (distal): 60 cm/s, Multiphasic Proximal Popliteal artery: 55 cm/s, Multiphasic Mid posterior tibial artery: 100 cm/s, Multiphasic US/US MARIKA complete IMPRESSION: RIGHT LEG: No hemodynamically significant stenosis in the right lower extremity. LEFT LEG: No hemodynamically significant stenosis in the left lower extremity.
--- NOTE | ~2022-08-18 | US_ITS ---
EXAMINATION: US LOWER EXTREMITY VENOUS (REFLUX EXAM), BILATERAL CLINICAL INDICATION: Varicose veins COMPARISON: None. TECHNIQUE: Color flow triplex imaging and compression Doppler was performed to evaluate both the deep and the superficial systems bilaterally. To evaluate the superficial system, the examination was performed in the upright position. Color-flow Doppler ultrasound and compression ultrasound were utilized. In addition, maneuvers were utilized to demonstrate reflux. FINDINGS: 1. DEEP VENOUS ULTRASOUND OF THE RIGHT LOWER EXTREMITY: Common Femoral Vein: Compressible, normal respiratory variation and augmented flow. Femoral Vein: Compressible, normal color flow and augmentation. Popliteal Vein: Compressible, normal augmentation. Deep Reflux: There is no evidence of reflux in the deep system in either the common femoral vein or the popliteal vein. There is no evidence of a Shea's cyst. 2. SUPERFICIAL ULTRASOUND WITH DOPPLER OF RIGHT LOWER EXTREMITY: GREAT SAPHENOUS VEIN: Saphenofemoral Junction: 0.8 cm; Reflux: 0 ms Proximal Thigh: 0.3 cm; Reflux: 0 ms Mid Thigh: 0.4 cm; Reflux: 0 ms Above Knee: 0.3 cm; Reflux: 0 ms At Knee: 0.5 cm; Reflux: 0 ms Below Knee: 0.3 cm; Reflux: 0 ms Mid Calf: 0.4 cm; Reflux: 0 ms Ankle: 0.3 cm; Reflux: 0 ms DUPLICATED MEDIAL GREAT SAPHENOUS VEIN: Proximal: 0.5 cm; Reflux: 0 ms Distal: 0.2 cm; Reflux: 0 ms DUPLICATED LATERAL GREAT SAPHENOUS VEIN: Diameter: None Imaged Reflux: NA SMALL SAPHENOUS VEIN: Proximal: 0.4 cm; Reflux: 0 ms Distal: 0.4 cm; Reflux: 0 ms VEIN OF GIACOMINI: None Imaged. PERFORATORS: Location: None Imaged Size: NA Reflux: NA VARICOSITIES: Location: None Imaged Size: NA Reflux: NA 3. DEEP VENOUS ULTRASOUND OF THE LEFT LOWER EXTREMITY: Common Femoral Vein: Compressible, normal respiratory variation and augmented flow. Femoral Vein: Compressible, normal color flow and augmentation. Popliteal Vein: Compressible, normal augmentation. Deep Reflux: There is no evidence of reflux in the deep system in either the common femoral vein or the popliteal vein. There is no evidence of a Shea's cyst. 4. SUPERFICIAL ULTRASOUND WITH DOPPLER OF LEFT LOWER EXTREMITY: GREAT SAPHENOUS VEIN: Saphenofemoral Junction: 1.3 cm; Reflux: 0 ms Proximal Thigh: 0.9 cm; Reflux: 2368 ms Mid Thigh: 0.6 cm; Reflux: 2316 ms Above Knee: 0.8 cm; Reflux: 2396 ms At Knee: 0.5 cm; Reflux: 2300 ms Below Knee: 0.3 cm; Reflux: 0 ms Mid Calf: 0.2 cm; Reflux: 0 ms Ankle: 0.2 cm; Reflux: 0 ms DUPLICATED MEDIAL GREAT SAPHENOUS VEIN: Diameter: None Imaged Reflux: NA DUPLICATED LATERAL GREAT SAPHENOUS VEIN: Diameter: None Imaged Reflux: NA SMALL SAPHENOUS VEIN: Proximal: 0.3 cm; Reflux: 0 ms Distal: 0.4 cm; Reflux: 0 ms VEIN OF GIACOMINI: None Imaged. PERFORATORS: Location: None Imaged Size: NA Reflux: NA VARICOSITIES: Location: None Imaged Size: NA Reflux: NA US/US venous duplex LE BI IMPRESSION: Left great saphenous vein reflux.
== END 2022-08-18 10:12 | disposition home or self-care (01) ==
LOC: HO.US 10:11
PROVIDERS: PCP Nurse Practitioner Family; Visit Provider Surgery Vascular Surgery
DX: I83.11 Varicose veins of right lower extremity with inflammation (principal); I73.9 Peripheral vascular disease, unspecified
CPT/HCPCS: 93923; 93925; 93970

== ENCOUNTER → 2022-08-31 09:34 | Outpatient (BNVA) | payer MEDICARE, OTHER, SELFPAY | PROVIDERS: PCP Nurse Practitioner Family; Visit Provider Surgery Vascular Surgery | DX: I83.12 Varicose veins of left lower extremity with inflammation (principal); I73.9 Peripheral vascular disease, unspecified | CPT/HCPCS: 99212 ==

== ENCOUNTER → 2022-09-09 08:51 | Outpatient (BNVA) | payer MEDICARE, OTHER, SELFPAY | PROVIDERS: PCP Nurse Practitioner Family; Visit Provider Internal Medicine | DX: I48.20 Chronic atrial fibrillation, unspecified (principal); Z79.01 Long term (current) use of 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s; Z51.81 Encounter for therapeutic drug level monitoring | CPT/HCPCS: 85610; 99211 ==

== ENCOUNTER → 2022-10-07 08:48 | Outpatient (BNVA) | payer MEDICARE, OTHER, SELFPAY | PROVIDERS: PCP Nurse Practitioner Family; Visit Provider Internal Medicine | DX: I48.20 Chronic atrial fibrillation, unspecified (principal); Z79.01 Long term (current) use of 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s; Z51.81 Encounter for therapeutic drug level monitoring | CPT/HCPCS: 85610; 99211 ==

== ENCOUNTER → 2022-10-28 08:57 | Outpatient (BNVA) | payer MEDICARE, OTHER, SELFPAY | PROVIDERS: PCP Nurse Practitioner Family; Referring Provider Nurse Practitioner Family; Visit Provider Internal Medicine Cardiovascular Disease | DX: I48.91 Unspecified atrial fibrillation (principal); R07.9 Chest pain, unspecified; I10 Essential (primary) hypertension; E78.5 Hyperlipidemia, unspecified; Z95.0 Presence of cardiac pacemaker; Z98.890 Other specified postprocedural states; Z79.01 Long term (current) use of 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s | CPT/HCPCS: 99212 ==

== ENCOUNTER 2022-11-02 06:56 | Outpatient (REF) | payer MEDICARE, OTHER, SELFPAY ==
[2022-11-02 11:25] LABS: Appearance Urine Clear; Color Urine Yellow; Glucose Urine UA Negative (Negative); Leukocyte Esterase Urine Negative (Negative); Nitrite Urine Negative (Negative); PH 8.5 (5.0-9.0); Specific Gravity - Urine 1.015 (1.005-1.025); Urine Blood Negative (Negative); Urine Ketones Negative (Negative); Urine Protein Trace mg/dL (Neg-Trace)
[2022-11-02 11:39] LABS: MANUAL DIFF FLAG NO
[2022-11-02 12:05] LABS: Basophils Percent Auto 0.5 % (0-2); Eosinophils Absolute Auto 0.1 X10*3/uL (0.0-0.4); Eosinophils Percent Auto 2.1 % (0-4); Hematocrit 43.2 % (42.0-52.0); Hemoglobin 13.8 g/dl (14.0-18.0); Imm Gran Abs Auto 0.02 X10*3/uL (0.00-0.03); Imm Gran Pct Auto 0.3 % (0.0-0.4); Lymphocytes Absolute Auto 2.6 X10*3/uL (1.2-4.9); Mean Corpuscular HGB Conc 31.9 g/dl (31.0-36.0); Mean Corpuscular Hemoglobin 28.8 pg (27.0-33.0); Mean Platelet Volume 10.4 fL (9.4-12.4); Monocytes Absolute Auto 0.5 X10*3/uL (0.1-1.2); Monocytes Percent Auto 7.1 % (2-11); Neutrophils Absolute Auto 3.4 x10*3/uL (2.0-8.3); Platelet Count 218 X10*3/uL (160-400); Red Cell Distribution Width 14.4 % (11.0-16.0); White Blood Count 6.6 X10*3/uL (4.8-10.8)
[2022-11-02 13:16] LABS: Alanine Aminotransferase 23 U/L (0-40); Alkaline Phosphatase 42 U/L (39-117); Anion Gap 11 (12-20); Aspartate Amino Transferase 27 U/L (5-37); Bilirubin Total 1.1 mg/dL (0.0-1.0); Blood Urea Nitrogen 15 mg/dL (9-16); Calcium 9.2 mg/dL (8.4-10.2); Carbon Dioxide 32 mmol/L (22-29); Chloride 101 mmol/L (96-108); Cholesterol 161 mg/dL; Estimated Glomerular Filt Rate > 60; Glucose Fasting 101 mg/dL (60-99); HDL Cholesterol 56 mg/dL; LDL Cholesterol Calculated 92 mg/dl; Potassium 3.9 mmol/L (3.3-5.1); Sodium 140 mmol/L (135-145); Total Protein 6.9 g/dL (6.5-8.0); Triglycerides 67 mg/dL
[2022-11-02 13:21] LABS: Prostate Specific Antigen Scr 5.68 ng/mL (<0.05-4.0); TSH reflex Free T4 1.58 uIU/mL (0.32-4.0)
== END 2022-11-02 06:57 | disposition home or self-care (01) ==
LOC: HO.HMGCLDS 06:56
PROVIDERS: PCP Nurse Practitioner Family; Visit Provider Nurse Practitioner Family
DX: Z12.5 Encounter for screening for malignant neoplasm of prostate (principal); I10 Essential (primary) hypertension; M79.89 Other specified soft tissue disorders; E78.5 Hyperlipidemia, unspecified
CPT/HCPCS: 36415; 80053; 80061; 81003; 84153; 84443; 85025

== ENCOUNTER → 2022-11-04 09:21 | Outpatient (BNVA) | payer MEDICARE, OTHER, SELFPAY | PROVIDERS: PCP Nurse Practitioner Family; Visit Provider Internal Medicine | DX: I48.20 Chronic atrial fibrillation, unspecified (principal); Z79.01 Long term (current) use of 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s; Z51.81 Encounter for therapeutic drug level monitoring | CPT/HCPCS: 85610; 99211 ==

== ENCOUNTER → 2022-11-08 12:48 | Outpatient (BNVA) | payer MEDICARE, OTHER, SELFPAY | PROVIDERS: PCP Nurse Practitioner Family; Visit Provider Surgery Vascular Surgery | DX: I83.12 Varicose veins of left lower extremity with inflammation (principal) | CPT/HCPCS: 99212 ==

== ENCOUNTER → 2022-12-02 08:59 | Outpatient (BNVA) | payer MEDICARE, OTHER, SELFPAY | PROVIDERS: PCP Nurse Practitioner Family; Visit Provider Internal Medicine | DX: I48.20 Chronic atrial fibrillation, unspecified (principal); Z79.01 Long term (current) use of 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s; Z51.81 Encounter for therapeutic drug level monitoring | CPT/HCPCS: 85610; 99211 ==

== ENCOUNTER → 2022-12-10 10:00 | Outpatient (BNVA) | payer MEDICARE, OTHER, SELFPAY | PROVIDERS: PCP Nurse Practitioner Family; Visit Provider Surgery Vascular Surgery | DX: I83.12 Varicose veins of left lower extremity with inflammation (principal) | CPT/HCPCS: 36475 ==

== ENCOUNTER 2022-12-13 11:13 | Outpatient (REF) | payer MEDICARE, OTHER, SELFPAY ==
--- NOTE | ~2022-12-13 | US_ITS ---
EXAMINATION: US VENOUS ULTRASOUND WITH DOPPLER LOWER EXTREMITY, LEFT CLINICAL INFORMATION: Pain. History of left greater saphenous vein RFA 12/10/2022 COMPARISON: None available. TECHNIQUE: Ultrasound of the deep veins is performed from the hip to the calf with compression sonography and color and pulse Doppler assessment. Spectral analysis with color-flow imaging is performed. FINDINGS: There is normal venous compression and respiratory variation and augmented flow. The visualized common femoral vein, superficial femoral vein, profunda femoral vein, popliteal vein, and the trifurcation region shows no evidence of deep venous thrombosis. There is echogenic material in the left greater saphenous vein post RFA. This extends to 4 cm from the saphenofemoral junction. The greater saphenous vein is closed. There is no significant popliteal fossa cyst. US/US venous duplex LE LT IMPRESSION: No DVT demonstrated in the left lower extremity.
== END 2022-12-13 11:14 | disposition home or self-care (01) ==
LOC: HO.HMGCX 11:13
PROVIDERS: PCP Nurse Practitioner Family; Visit Provider Surgery Vascular Surgery
DX: M79.605 Pain in left leg (principal)
CPT/HCPCS: 93971

== ENCOUNTER → 2022-12-24 08:58 | Outpatient (BNVA) | payer MEDICARE, OTHER, SELFPAY | PROVIDERS: PCP Nurse Practitioner Family; Visit Provider Nurse Practitioner Family | DX: R97.20 Elevated prostate specific antigen [PSA] (principal) | CPT/HCPCS: 99202 ==

== ENCOUNTER → 2022-12-28 10:51 | Outpatient (BNVA) | payer MEDICARE, OTHER, SELFPAY | PROVIDERS: PCP Nurse Practitioner Family; Visit Provider Surgery Vascular Surgery | DX: I83.12 Varicose veins of left lower extremity with inflammation (principal); Z98.890 Other specified postprocedural states | CPT/HCPCS: 99212 ==

== ENCOUNTER → 2022-12-30 09:01 | Outpatient (BNVA) | payer MEDICARE, OTHER, SELFPAY | PROVIDERS: PCP Nurse Practitioner Family; Visit Provider Internal Medicine | DX: I48.20 Chronic atrial fibrillation, unspecified (principal); Z79.01 Long term (current) use of 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s; Z51.81 Encounter for therapeutic drug level monitoring | CPT/HCPCS: 85610; 99211 ==

== ENCOUNTER 2023-01-06 06:30 | Outpatient (REF) | payer MEDICARE, OTHER, SELFPAY ==
[2023-01-06 12:01] LABS: PSA,Total (Free>4and<10) 6.92 ng/mL (0.00-4.00)
[2023-01-10 12:39] LABS: Free Prostate Spec Ag 0.9 ng/mL; Percent Free Prostate Spec Ag 13 % (calc) (>25); Prostate Specific Ag Total 6.8 ng/mL (< OR = 4.0)
== END 2023-01-06 06:31 | disposition home or self-care (01) ==
LOC: HO.HMGCLDS 06:30
PROVIDERS: PCP Nurse Practitioner Family; Visit Provider Nurse Practitioner Family
DX: Z12.5 Encounter for screening for malignant neoplasm of prostate (principal); R97.20 Elevated prostate specific antigen [PSA]
CPT/HCPCS: 36415; 84153; 84154

== ENCOUNTER 2023-01-10 08:09 | Outpatient (REF) | payer MEDICARE, OTHER, SELFPAY ==
--- NOTE | ~2023-01-10 | US_ITS ---
EXAMINATION: US RETROPERITONEAL COMPLETE (RENAL) CLINICAL INFORMATION: Elevated PSA. COMPARISON: None available. TECHNIQUE: Real-time imaging of the kidneys and bladder. FINDINGS: RIGHT KIDNEY: 12.6 x 6.3 x 6.1 cm (SAG x AP x TRV). The kidney is normal in size, contour, and echogenicity. Renal cortical thickness is normal. No renal calculi or hydronephrosis. A 1.2 cm benign Bosniak class 1 upper pole renal cyst is present which needs no additional imaging or followup. No solid renal masses LEFT KIDNEY: 13.1 x 6.6 x 5.8 cm (SAG x AP x TRV). The kidney is normal in size, contour, and echogenicity. Renal cortical thickness is normal. No calculi or focal parenchymal lesions. No hydronephrosis. BLADDER: Well distended. The bladder wall is slightly thickened at 4 mm with minimal trabeculation. Bilateral ureteral jets are demonstrated. Prevoid bladder volume is 150 mL. Postvoid bladder volume is 32 mL. Prostate volume 19.6 mL. US/US retroperitoneal comp IMPRESSION: No significant abnormality is seen aside from some mild symmetric thickening of the bladder wall.
== END 2023-01-10 08:10 | disposition home or self-care (01) ==
LOC: HO.HMGCX 08:09
PROVIDERS: PCP Nurse Practitioner Family; Visit Provider Nurse Practitioner Family
DX: N40.0 Benign prostatic hyperplasia without lower urinary tract symptoms (principal); R97.20 Elevated prostate specific antigen [PSA]
CPT/HCPCS: 76770

== ENCOUNTER → 2023-01-27 08:48 | Outpatient (BNVA) | payer MEDICARE, OTHER, SELFPAY | PROVIDERS: PCP Nurse Practitioner Family; Visit Provider Internal Medicine | DX: I48.20 Chronic atrial fibrillation, unspecified (principal); Z79.01 Long term (current) use of 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s; Z51.81 Encounter for therapeutic drug level monitoring | CPT/HCPCS: 85610; 99211 ==

== ENCOUNTER → 2023-02-10 08:46 | Outpatient (BNVA) | payer MEDICARE, OTHER, SELFPAY | PROVIDERS: PCP Nurse Practitioner Family; Visit Provider Internal Medicine | DX: I48.20 Chronic atrial fibrillation, unspecified (principal); Z79.01 Long term (current) use of 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s; Z51.81 Encounter for therapeutic drug level monitoring | CPT/HCPCS: 85610; 99211 ==

== ENCOUNTER 2023-02-14 07:04 | Outpatient (REF) | payer MEDICARE, OTHER, SELFPAY | END 2023-02-14 07:05 | disposition home or self-care (01) | LOC: HO.HMGCLDS 07:04 | PROVIDERS: PCP Nurse Practitioner Family; Visit Provider Nurse Practitioner Family | DX: I10 Essential (primary) hypertension (principal) | CPT/HCPCS: 36415; 80053; 80061; 81003; 84443; 85025 ==

== ENCOUNTER → 2023-03-01 23:59 | Outpatient (BNV) | payer MEDICARE, OTHER, SELFPAY ==
--- NOTE | 2023-03-14 14:42 | MHC.OFFVIS ---
Intake Intake Visit Reasons: Remote Device Check- [facility] Allergies No Known Allergies [No Known Allergies*] Allergy (Verified 03/03/23 09:12) FOR[facility]LY [facility] Medical History Atrial fibrillation Current use of 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 therapy Hyperlipidemia Hypertension, essential, benign Osteoarthritis Pacemaker (~2008) Surgical History Amputated toe of left foot History of appendectomy History of cardiac pacemaker History of cardiac radiofrequency ablation (RFA) History of colonoscopy History of eye surgery Status post left foot surgery (~02/2020) Family History Father No problems noted. Mother No problems noted. Social History Housing: House Alcohol intake: current Alcohol intake frequency: a few times a week Alcohol type: beer Patient Tobacco Use Status: Former Tobacco user Quit Date: 1979 Smoked: 15 e-Cigarette/Vaping Use: Never Used service: No Current occupational status: retired Hearing needs: No Vision needs: Yes (Glasses) Office Procedures Cardiac Device Check Cardiac Device Check Details: [employer]. Good battery life. VVIR mode. V paced 29%. Episodes of high ventricular rate are recorded. These are due to atrial fibrillation. [id number] Cardiac Device Interrogation, pacemaker Procedure code (CPT) selection complete Assessment & Plan Assessment & Plan (1) Pacemaker: Onset Date: ~2008 Comment: (Pacemaker SCPP- [facility] - Initial DCPP 2008, replaced/SCPP 2017) Code(s): Z95.0 - Presence of cardiac pacemaker Coding Level of Care Code Procedure Only Diagnoses Pacemaker Z95.0 CPT Codes Cardiac Device Check - Cardiac Device 12: [id number] Cardiac Device Interrogation, pacemaker ([id number])
== END ==
PROVIDERS: PCP Nurse Practitioner Family; Visit Provider Internal Medicine Cardiovascular Disease
DX: I48.91 Unspecified atrial fibrillation (principal); Z95.0 Presence of cardiac pacemaker
CPT/HCPCS: 93294

== ENCOUNTER 2023-03-03 09:07 | Outpatient (AMB) | payer MEDICARE, OTHER, SELFPAY ==
--- NOTE | 2023-03-03 09:23 | MHC.OFFVISCO ---
Intake Intake Visit Reasons: Anticoagulation Allergies No Known Allergies [No Known Allergies*] Allergy (Verified 03/03/23 09:12) Medication List - Last Reconciled 03/03/23 by Lindsay Tabor RN atorvastatin 20 mg PO DAILY diltiazem HCl 180 mg PO DAILY magnesium oxide 500 mg PO DAILY triamterene-hydrochlorothiazid 75-50 mg 1 tab PO DAILY warfarin See Protocol 4MG X3DAYS/ 2MG X4DAYS 90 days Nursing Note Amb to ACS feeling well Medications and supplements reviewed No changes in health, diet, medications, or supplements Denies any unusual signs and symptoms of bruising, bleeding Denies any new Chest pain, SOB, or clotting INR: 2.4 now in therapeutic range after prev elevations Nutritional guidance given: balance greens and reds in diet, be worrell of raising effect of [place] tomoatoes Dose: continue usual dosing; 4mg x 3 days and 2mg x 4 days F/U INR: 4 weeks Patient verbalizes understanding of instructions given with accurate read back/ teach back of dosing Anti-Coag Initial Assessment Social Hx Patient Tobacco Use Status: Former Tobacco user Quit Date: 1979 alcohol intake: current Alcohol intake frequency: a few times a week Coding Level of Care Code Est Patient Level 1 Diagnoses Current use of 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 therapy Z79.01 Time Spent (min) 15 Results AMB INR Fingerstick AMB INR Fingerstick 2.4 Last Edit by Lindsay Tabor RN on 03/03/23 09:22 interface failure Assessment & Plan Assessment & Plan (1) Current use of 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 therapy: Code(s): Z79.01 - [facility] (current) use of 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s Category: Medical
[2023-03-03 09:26] LABS: Prothrombin Time Whole Bld POC 29.1 sec (11.1-13.5); ~PT, ~INR - Anti Coag Clinic 2.4 (0.9-1.1)
== END 2023-03-03 09:26 | disposition home or self-care (01) ==
LOC: HO.ACS 09:07
PROVIDERS: PCP Nurse Practitioner Family; Visit Provider Internal Medicine
DX: Z79.01 Long term (current) use of 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s (principal)

== ENCOUNTER → 2023-03-03 09:07 | Outpatient (BNVA) | payer MEDICARE, OTHER, SELFPAY | PROVIDERS: PCP Nurse Practitioner Family; Visit Provider Internal Medicine | DX: I48.20 Chronic atrial fibrillation, unspecified (principal); Z79.01 Long term (current) use of 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s; Z51.81 Encounter for therapeutic drug level monitoring | CPT/HCPCS: 85610; 99211 ==

== ENCOUNTER 2023-03-29 09:42 | Outpatient (AMB) | payer MEDICARE, OTHER, SELFPAY ==
[2023-03-29 09:43] VITALS: BP 114/70; PULSE 87; O2SAT 97; BMI 27.5
--- NOTE | 2023-03-29 09:43 | A.OFFVIS_ITS ---
Intake Vital Signs 03/29/23 09:43 Height 6 ft 3 in Weight 220 lb BMI 27.5 BP 114/70 Blood Pressure Location Rt brachial Position Sitting Pulse 87 Pulse Source Pulse Oximeter Pulse Oximetry (%) 97 Oxygen Delivery Method Room Air Intake Visit Reasons: 3 month vein check Intake Note: Pt presents to the office today for a 3 month vein check. Pt states he is feeling good since his procedure. He uses his compression stockings everyday. Pt denies any numbness. He states he does have tingling in both his legs from his knees down and pain in both legs but his left heel is what is most painful. Accompanied by: Daughter Allergies No Known Allergies [No Known Allergies*] Allergy (Verified 03/29/23 09:47) HPI 3 month vein check HPI Details Very pleasant 87-year-old gentleman presents for follow-up evaluation regarding venous disease. He had a prior left great saphenous vein ablation. He reports he is doing well. He did have a cluster varicosities which appear to have decreased in size. He now presents to us for follow-up evaluation. [facility] Medical History Atrial fibrillation Current use of 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 therapy Hyperlipidemia Hypertension, essential, benign Osteoarthritis Pacemaker (~2008) Surgical History Amputated toe of left foot History of appendectomy History of cardiac pacemaker History of cardiac radiofrequency ablation (RFA) History of colonoscopy History of eye surgery Status post left foot surgery (~02/2020) Family History Father No problems noted. Mother No problems noted. Social History Housing: House Alcohol intake: current Alcohol intake frequency: a few times a week Alcohol type: beer Patient Tobacco Use Status: Former Tobacco user Quit Date: 1979 Years Smoked: 15 e-Cigarette/Vaping Use: Never Used service: No Current occupational status: retired Hearing needs: No Vision needs: Yes (Glasses) Review of Systems Const All systems reviewed & are unremarkable except as noted in HPI and below Reports no additional complaints ENT Reports Normal hearing present Card Denies chest pain, Denies chest pain at rest, Denies chest pain with activity and Denies pedal edema Resp Denies cough GI Denies abdominal pain Musc Denies abnormal gait, Denies muscle cramps and Denies radiating pain into limb Skin/Breast Denies skin ulcer and Denies wounds Neuro Reports Normal hearing present and Denies abnormal gait Psych Reports no additional complaints Physical Exam Vital Signs: Last Vital Signs Pulse 87 03/29/23 09:43 BP 114/70 03/29/23 09:43 Pulse Ox 97 03/29/23 09:43 Oxygen Delivery Method Room Air 03/29/23 09:43 BMI result Body Mass Index 27.5 Const General: cooperative, healthy appearing and comfortable Orientation/consciousness: oriented to person, oriented to place and oriented to time HEENT Head: Yes normal to inspection Neck Neck: Yes normal visual inspection Carotids: no bruits Chest Chest palpation & inspection: normal inspection of the chest Resp Effort & Inspection: normal respiratory effort and able to speak in complete sentences Auscultation: clear to auscultation bilaterally, no crackles, no rales, no rhonchi and no wheezes Cardio Rate: regular rate Rhythm: regular rhythm Heart sounds: S1 normal heart sound present and S2 normal heart sound present Bruits: no carotid bruits Peripheral pulses: Peripheral pulses 2+ throughout GI Inspection: Yes normal to inspection Skin Wounds: no wounds Hair: normal Neuro General: oriented to person, oriented to place and oriented to time Cranial nerves: Yes CN's II-XII intact bilaterally and Yes Normal hearing present Cognition (Neuro): normal cognition Motor exam (neuro): 5/5 motor strength present throughout Extrem Other: venous exam: +1 edema General: No clubbing, No cyanosis and Yes edema Psych Appearance: grossly normal Mental Status: mental status grossly normal Speech and movement: Normal speech and movement present Assessment & Plan Assessment & Plan (1) Varicose veins of left lower extremity with inflammation: Comment: 12/10/2022 - left great saphenous vein radiofrequency ablation Code(s): I83.12 - Varicose veins of left lower extremity with inflammation Plan: In short patient appears to be doing relatively well from a venous standpoint. He does have palpable arterial pulses with testing also done in August which was within normal limits. He complains of some foot pain more towards the heel. I do believe this is more podiatric in nature. Would recommend he follows up with a power hammer operator for possible shoe inserts. From my perspective he appears to be stable from on arterial and venous standpoint. We did discuss routine conservative measures including compression elevation and exercise. Will follow up with us on an as-needed basis. Thank you for allowing us to participate in the care of this kind gentleman. If there are any questions or concerns please do not hesitate to contact us. Coding Level of Care Code Est Pt Level 3 (37861) Diagnoses Varicose veins of left lower extremity with inflammation I83.12
== END 2023-03-29 10:14 | disposition home or self-care (01) ==
PROVIDERS: Visit Provider Surgery Vascular Surgery
DX: I83.12 Varicose veins of left lower extremity with inflammation (principal)
CPT/HCPCS: 99213

== ENCOUNTER → 2023-03-29 09:42 | Outpatient (BNVA) | payer MEDICARE, OTHER, SELFPAY | PROVIDERS: Visit Provider Surgery Vascular Surgery | DX: I83.12 Varicose veins of left lower extremity with inflammation (principal) | CPT/HCPCS: 99212 ==

== ENCOUNTER 2023-03-31 08:40 | Outpatient (AMB) | payer MEDICARE, OTHER, SELFPAY ==
--- NOTE | 2023-03-31 08:48 | MHC.OFFVISCO ---
Intake Intake Visit Reasons: Anticoagulation Allergies No Known Allergies [No Known Allergies*] Allergy (Verified 03/31/23 08:44) Medication List - Last Reconciled 03/31/23 by Alicia Coffey RN atorvastatin 20 mg PO DAILY diltiazem HCl 240 mg PO DAILY magnesium oxide 500 mg PO DAILY triamcinolone acetonide 0.1% 1 appl topical BID-TID triamterene-hydrochlorothiazid 75-50 mg 1 tab PO DAILY warfarin See Protocol 4MG X3DAYS/ 2MG X4DAYS 90 days Nursing Note INR 1.6-?? out of therapeutic range Medications and supplements reviewed Patient status: may have missed a dose, pt states received phone call to increase warfarin to 4mg daily- unsure who called, but did not do that dosing Medications or supplements: no changes Diet: appetite is good Denies any signs and symptoms of bleeding or clotting or unusual bruising Bleeding, bruising, clotting discussed Nutritional guidance given: no greens for 2 days, eat reds to raise Dose: 4mg today- then cont reg 4mg x 3, 2mg x 4 F/U INR Date : 1 week? Patient verbalizing understanding of instructions given. Anti-Coag Initial Assessment Social Hx Patient Tobacco Use Status: Former Tobacco user Quit Date: 1979 alcohol intake: current Alcohol intake frequency: a few times a week Coding Level of Care Code Est Patient Level 1 Diagnoses Current use of 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 therapy Z79.01 Assessment & Plan Assessment & Plan (1) Current use of 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 therapy: Code(s): Z79.01 - skilled nursing (current) use of 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s Category: Medical
[2023-03-31 08:49] LABS: Prothrombin Time Whole Bld POC 18.7 sec (11.1-13.5); ~PT, ~INR - Anti Coag Clinic 1.6 (0.9-1.1)
== END 2023-03-31 08:55 | disposition home or self-care (01) ==
LOC: HO.ACS 08:40
PROVIDERS: PCP Nurse Practitioner Family; Visit Provider Internal Medicine
DX: Z79.01 Long term (current) use of 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s (principal)

== ENCOUNTER → 2023-03-31 08:40 | Outpatient (BNVA) | payer MEDICARE, OTHER, SELFPAY | PROVIDERS: PCP Nurse Practitioner Family; Visit Provider Internal Medicine | DX: I48.20 Chronic atrial fibrillation, unspecified (principal); Z79.01 Long term (current) use of 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s; Z51.81 Encounter for therapeutic drug level monitoring | CPT/HCPCS: 85610; 99211 ==

== ENCOUNTER 2023-04-07 08:40 | Outpatient (AMB) | payer MEDICARE, OTHER, SELFPAY ==
--- NOTE | 2023-04-07 08:54 | MHC.OFFVISCO ---
Intake Intake Visit Reasons: Anticoagulation Allergies No Known Allergies [No Known Allergies*] Allergy (Verified 04/07/23 08:49) Medication List - Last Reconciled 04/07/23 by Alicia Coffey RN atorvastatin 20 mg PO DAILY diltiazem HCl 240 mg PO DAILY magnesium oxide 500 mg PO DAILY triamcinolone acetonide 0.1% 1 appl topical BID-TID triamterene-hydrochlorothiazid 75-50 mg 1 tab PO DAILY warfarin See Protocol 4MG X3DAYS/ 2MG X4DAYS 90 days Nursing Note INR 1.8?? out of therapeutic range- denies missed dose Medications and supplements reviewed Patient status: no c,.o Medications or supplements: no changes Diet: appetite good, states ate more reds and minimal greens Denies any signs and symptoms of bleeding or clotting or unusual bruising Bleeding, bruising, clotting discussed Nutritional guidance given: no greens for 2-3 days, eat reds to raise Dose: 4mg today- pt req keep dose same for now- 4mg x 3, 2mg x 4 F/U INR Date : pt req 1 week?? Patient verbalizing understanding of instructions given. Anti-Coag Initial Assessment Social Hx Patient Tobacco Use Status: Former Tobacco user Quit Date: 1979 alcohol intake: current Alcohol intake frequency: a few times a week Coding Level of Care Code Est Patient Level 1 Diagnoses Current use of 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 therapy Z79.01 Assessment & Plan Assessment & Plan (1) Current use of 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 therapy: Code(s): Z79.01 - skilled nursing (current) use of 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s Category: Medical
[2023-04-07 08:55] LABS: Prothrombin Time Whole Bld POC 21.8 sec (11.1-13.5); ~PT, ~INR - Anti Coag Clinic 1.8 (0.9-1.1)
== END 2023-04-07 09:01 | disposition home or self-care (01) ==
LOC: HO.ACS 08:40
PROVIDERS: PCP Nurse Practitioner Family; Visit Provider Internal Medicine
DX: Z79.01 Long term (current) use of 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s (principal)

== ENCOUNTER → 2023-04-07 08:40 | Outpatient (BNVA) | payer MEDICARE, OTHER, SELFPAY | PROVIDERS: PCP Nurse Practitioner Family; Visit Provider Internal Medicine | DX: I48.20 Chronic atrial fibrillation, unspecified (principal); Z79.01 Long term (current) use of 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s; Z51.81 Encounter for therapeutic drug level monitoring | CPT/HCPCS: 85610; 99211 ==

== ENCOUNTER 2023-04-15 08:40 | Outpatient (AMB) | payer MEDICARE, OTHER, SELFPAY ==
[2023-04-15 08:54] LABS: Prothrombin Time Whole Bld POC 35.2 sec (11.1-13.5); ~PT, ~INR - Anti Coag Clinic 2.9 (0.9-1.1)
--- NOTE | 2023-04-15 08:54 | MHC.OFFVISCO ---
Intake Intake Visit Reasons: Anticoagulation Allergies No Known Allergies [No Known Allergies*] Allergy (Verified 04/15/23 08:46) Medication List - Last Reconciled 04/15/23 by Karina Epperson RN atorvastatin 20 mg PO DAILY diltiazem HCl 240 mg PO DAILY magnesium oxide 500 mg PO DAILY triamcinolone acetonide 0.1% 1 appl topical BID-TID triamterene-hydrochlorothiazid 75-50 mg 1 tab PO DAILY warfarin See Protocol 4MG X3DAYS/ 2MG X4DAYS 90 days Nursing Note INR: 2.9 in therapeutic range PT BUSY TAKING CARE OF SPOUSE - MAY HAVE LUNG AND BRAIN METS - BEING EVALUATED Medications and supplements reviewed No changes in health, diet, medications, or supplements, Denies any signs and symptoms of bleeding or bruising or clotting. Bleeding, bruising, clotting discussed Nutritional guidance given Dose: 4MG X 3 DAYS/ 2MG X 4 DAYS F/U INR: 1 MONTH Patient verbalizes understanding of instructions given Anti-Coag Initial Assessment Social Hx Patient Tobacco Use Status: Former Tobacco user Quit Date: 1979 alcohol intake: current Alcohol intake frequency: a few times a week Coding Level of Care Code Est Patient Level 1 Diagnoses Current use of 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 therapy Z79.01 Results AMB INR Fingerstick AMB INR Fingerstick 2.9 Last Edit by Karina Epperson RN on 04/15/23 08:53 INTERFACE DELAY Assessment & Plan Assessment & Plan (1) Current use of 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 therapy: Code(s): Z79.01 - nursing home (current) use of 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s Category: Medical
== END 2023-04-15 08:58 | disposition home or self-care (01) ==
LOC: HO.ACS 08:40
PROVIDERS: PCP Nurse Practitioner Family; Visit Provider Internal Medicine
DX: Z79.01 Long term (current) use of 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s (principal)

== ENCOUNTER → 2023-04-15 08:40 | Outpatient (BNVA) | payer MEDICARE, OTHER, SELFPAY | PROVIDERS: PCP Nurse Practitioner Family; Visit Provider Internal Medicine | DX: I48.20 Chronic atrial fibrillation, unspecified (principal); Z79.01 Long term (current) use of 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s; Z51.81 Encounter for therapeutic drug level monitoring | CPT/HCPCS: 85610; 99211 ==

== ENCOUNTER 2023-05-13 08:48 | Outpatient (AMB) | payer MEDICARE, OTHER, SELFPAY ==
--- NOTE | 2023-05-13 09:05 | MHC.OFFVISCO ---
Intake Intake Visit Reasons: Anticoagulation Allergies No Known Allergies [No Known Allergies*] Allergy (Verified 05/13/23 08:51) Medication List - Last Reconciled 05/13/23 by Karina Epperson RN atorvastatin 20 mg PO DAILY diltiazem HCl 240 mg PO DAILY magnesium oxide 500 mg PO DAILY triamcinolone acetonide 0.1% 1 appl topical BID-TID triamterene-hydrochlorothiazid 75-50 mg 1 tab PO DAILY warfarin See Protocol 4MG X3DAYS/ 2MG X4DAYS 90 days Nursing Note INR: 2.4 in therapeutic range Has some stress - Pt has been ill and needs treatment enc laughter and strong antioxidatn foods Medications and supplements reviewed No changes in health, diet, medications, or supplements, Denies any signs and symptoms of bleeding or bruising or clotting. Bleeding, bruising, clotting discussed Nutritional guidance given Dose: keep same 4mg mwf/ 2mg x 4 days F/U INR: 1 month Patient verbalizes understanding of instructions given Anti-Coag Initial Assessment Social Hx Patient Tobacco Use Status: Former Tobacco user Quit Date: 1979 alcohol intake: current Alcohol intake frequency: a few times a week Coding Level of Care Code Est Patient Level 1 Diagnoses Current use of 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 therapy Z79.01 Assessment & Plan Assessment & Plan (1) Current use of 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 therapy: Code(s): Z79.01 - [facility] (current) use of 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s Category: Medical
== END 2023-05-13 09:07 | disposition home or self-care (01) ==
LOC: HO.ACS 08:48
PROVIDERS: PCP Nurse Practitioner Family; Visit Provider Internal Medicine
DX: Z79.01 Long term (current) use of 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s (principal)

== ENCOUNTER → 2023-05-13 08:48 | Outpatient (BNVA) | payer MEDICARE, OTHER, SELFPAY | PROVIDERS: PCP Nurse Practitioner Family; Visit Provider Internal Medicine | DX: I48.20 Chronic atrial fibrillation, unspecified (principal); Z79.01 Long term (current) use of 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s; Z51.81 Encounter for therapeutic drug level monitoring | CPT/HCPCS: 85610; 99211 ==

== ENCOUNTER → 2023-05-31 23:59 | Outpatient (BNV) | payer MEDICARE, OTHER, SELFPAY ==
--- NOTE | 2023-06-06 11:29 | A.OFFVIS_ITS ---
Intake Intake Visit Reasons: Remote Device Check- [facility] Allergies No Known Allergies [No Known Allergies*] Allergy (Verified 05/13/23 08:51) [facility] Medical History Atrial fibrillation Current use of 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 therapy Hyperlipidemia Hypertension, essential, benign Osteoarthritis Pacemaker (~2008) Surgical History Amputated toe of left foot History of appendectomy History of cardiac pacemaker History of cardiac radiofrequency ablation (RFA) History of colonoscopy History of eye surgery Status post left foot surgery (~02/2020) Family History Father No problems noted. Mother No problems noted. Social History Housing: House Alcohol intake: current Alcohol intake frequency: a few times a week Alcohol type: beer Patient Tobacco Use Status: Former Tobacco user Quit Date: 1979 Years Smoked: 15 e-Cigarette/Vaping Use: Never Used service: No Current occupational status: retired Hearing needs: No Vision needs: Yes (Glasses) Office Procedures Cardiac Device Check Cardiac Device Check Details: PPM Good battery life. 4 episodes of Afib noted. [id number] Cardiac Device Interrogation, pacemaker Procedure code (CPT) selection complete Assessment & Plan Assessment & Plan (1) Pacemaker: Onset Date: ~2008 Comment: (Pacemaker SCPP- [facility] - Initial DCPP 2008, replaced/SCPP 2017) Code(s): Z95.0 - Presence of cardiac pacemaker Orders: Orders AMB Cardiac Device Follow-up 05/31/23 Z95.0 - Presence of cardiac pacemaker Coding Level of Care Code Procedure Only Diagnoses Pacemaker Z95.0 CPT Codes Cardiac Device Check - Cardiac Device 12: [id number] Cardiac Device Interrogation, pacemaker ([id number])
== END ==
PROVIDERS: PCP Nurse Practitioner Family; Visit Provider Internal Medicine Cardiovascular Disease
DX: I48.91 Unspecified atrial fibrillation (principal); Z95.0 Presence of cardiac pacemaker
CPT/HCPCS: 93294

== ENCOUNTER 2023-06-10 10:03 | Outpatient (AMB) | payer MEDICARE, OTHER, SELFPAY ==
--- NOTE | 2023-06-10 10:21 | MHC.OFFVISCO ---
Intake Intake Visit Reasons: Anticoagulation Allergies No Known Allergies [No Known Allergies*] Allergy (Verified 06/10/23 10:18) Medication List - Last Reconciled 06/10/23 by Alicia Coffey RN atorvastatin 20 mg PO DAILY diltiazem HCl 240 mg PO DAILY magnesium oxide 500 mg PO DAILY triamcinolone acetonide 0.1% 1 appl topical BID-TID triamterene-hydrochlorothiazid 75-50 mg 1 tab PO DAILY warfarin See Protocol 4MG X3DAYS/ 2MG X4DAYS 90 days Nursing Note INR: 2.8- in therapeutic range of 2-3 Medications and supplements reviewed- no changes No changes in health, diet, medications, or supplements, Denies any signs and symptoms of bleeding or bruising or clotting. Bleeding, bruising, clotting discussed Nutritional guidance given Dose: 4mg x 3, 2mg x 4 F/U INR: 4 weeks Patient verbalizes understanding of instructions given pt states overdid yesterday, will rest today Anti-Coag Initial Assessment Social Hx Patient Tobacco Use Status: Former Tobacco user Quit Date: 1979 alcohol intake: current Alcohol intake frequency: a few times a week Coding Level of Care Code Est Patient Level 1 Diagnoses Current use of 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 therapy Z79.01 Assessment & Plan Assessment & Plan (1) Current use of 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 therapy: Code(s): Z79.01 - snf (current) use of 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s Category: Medical
[2023-06-10 10:22] LABS: Prothrombin Time Whole Bld POC 33.4 sec (11.1-13.5); ~PT, ~INR - Anti Coag Clinic 2.8 (0.9-1.1)
== END 2023-06-10 10:26 | disposition home or self-care (01) ==
LOC: HO.ACS 10:03
PROVIDERS: PCP Nurse Practitioner Family; Visit Provider Internal Medicine
DX: Z79.01 Long term (current) use of 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s (principal)

== ENCOUNTER → 2023-06-10 10:03 | Outpatient (BNVA) | payer MEDICARE, OTHER, SELFPAY | PROVIDERS: PCP Nurse Practitioner Family; Visit Provider Internal Medicine | DX: I48.20 Chronic atrial fibrillation, unspecified (principal); Z79.01 Long term (current) use of 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s; Z51.81 Encounter for therapeutic drug level monitoring | CPT/HCPCS: 85610; 99211 ==

== ENCOUNTER 2023-06-23 05:54 | Emergency (ER) | payer MEDICARE, OTHER, SELFPAY ==
--- NOTE | 2023-06-23 | ECG_ITS ---
Test Reason : CARDIAC HISTORY Blood Pressure : / mmHG Vent. Rate : 084 BPM Atrial Rate : 000 BPM P-R Int : 000 ms QRS Dur : 098 ms QT Int : 432 ms P-R-T Axes : 000 032 -16 degrees QTc Int : 510 ms Atrial fibrillation RSR' or QR pattern in V1 suggests right ventricular conduction delay Nonspecific ST abnormality Prolonged QT Abnormal ECG No previous ECGs available Referred By: Generic ED Physician Electronically Signed By:FELA ESPINOSA MD
--- NOTE | ~2023-06-23 | CT_ITS ---
EXAMINATION: CT ABDOMEN AND PELVIS WITHOUT CONTRAST CLINICAL INFORMATION: Gross hematuria COMPARISON: Renal ultrasound January 10, 2023 TECHNIQUE: Multidetector volumetric imaging was performed from the superior aspect of the liver through the pubic symphysis. Sagittal and coronal reformatted images were obtained on the technologist's workstation. This CT examination was performed using dose optimization techniques as appropriate, variously including the following: *Automated exposure control *Adjustment of mA and/or kV according to patient size (this includes techniques or standardized protocols for targeted exams where dose is matched to indication/reason for exam; i.e. extremities or head) *Use of iterative reconstruction technique DLP: 792 mGy-cm FINDINGS: Visualized lung bases demonstrate emphysematous changes with likely some mild superimposed interstitial lung disease. The liver is normal in size. The gallbladder is normal in appearance. The pancreas, spleen and adrenal glands are unremarkable. Symmetrically sized kidneys. There is a single 2 mm nonobstructing calculus within the lower pole of the left kidney. No right-sided renal calculi are noted. There is no hydronephrosis of either kidney. There is mild bilateral perinephric stranding, nonspecific. Small hiatal hernia. The stomach is relatively decompressed. Normal caliber loops of small and large bowel. Mild to moderate colonic stool burden. Normal caliber abdominal aorta demonstrating moderate atherosclerotic disease. No retroperitoneal lymphadenopathy. The bladder is well-distended. There is an irregularly-shaped hyperdense focus which appears to be within the lumen of the bladder which measures approximately 2.1 x 1.0 x 2.2 cm, nonspecific. The prostate gland is normal in size. Small fat-containing inguinal hernias. No gross free pelvic fluid. No inguinal lymphadenopathy. Diffuse osteopenia. Moderate degenerative changes of the spine. CT/CT abdomen pelvis wo IV con IMPRESSION: 1. 2 mm nonobstructing left renal calculus. No hydronephrosis. 2. Irregularly-shaped hyperdense focus which appears to be within the lumen of the bladder which measures approximately 2.1 x 1.0 x 2.2 cm. This is a nonspecific finding. This may represent a blood clot. a bladder mass is also within the differential. Given provided history, direct inspection likely warranted. Fleischner guidelines were followed.
[2023-06-23 05:56] VITALS: BP 136/88; PULSE 95; O2SAT 98
[2023-06-23 05:59] VITALS: BMI 28.7
[2023-06-23 06:06] VITALS: PULSE 79
[2023-06-23 06:14] VITALS: BP 139/78; PULSE 78; RESP 15; TEMP 36.3; O2SAT 95
[2023-06-23 06:28] LABS: Basophils Percent Auto 0.4 % (0-2); Eosinophils Absolute Auto 0.1 X10*3/uL (0.0-0.4); Hematocrit 41.2 % (42.0-52.0); Hemoglobin 13.6 g/dl (14.0-18.0); Imm Gran Abs Auto 0.01 X10*3/uL (0.00-0.03); Imm Gran Pct Auto 0.2 % (0.0-0.4); Lymphocytes Absolute Auto 1.9 X10*3/uL (1.2-4.9); Lymphocytes Percent Auto 34.6 % (20-40); MANUAL DIFF FLAG NO; Mean Corpuscular Hemoglobin 29.5 pg (27.0-33.0); Mean Corpuscular Volume 89.4 fL (80.0-98.0); Mean Platelet Volume 9.6 fL (9.4-12.4); Monocytes Absolute Auto 0.4 X10*3/uL (0.1-1.2); Monocytes Percent Auto 7.7 % (2-11); Neutrophils Absolute Auto 3.1 x10*3/uL (2.0-8.3); Neutrophils Percent Auto 55.1 % (45-73); Platelet Count 191 X10*3/uL (160-400); Red Blood Count 4.61 X10*6/uL (4.60-5.80); Red Cell Distribution Width 13.9 % (11.0-16.0); White Blood Count 5.6 X10*3/uL (4.8-10.8)
[2023-06-23 06:36] LABS: INTERNATIONAL NORM RATIO 2.9 (0.9-1.1); Prothrombin Time 35.8 SEC (11.1-13.3)
[2023-06-23 06:42] LABS: Anion Gap 12 (12-20); Blood Urea Nitrogen 16 mg/dL (9-16); Calcium 9.3 mg/dL (8.4-10.2); Carbon Dioxide 30 mmol/L (22-29); Chloride 100 mmol/L (96-108); Creatinine Clr Calc Pharmacy 73.1; Estimated Glomerular Filt Rate > 60; Glucose Random 104 mg/dL (60-115); Potassium 3.5 mmol/L (3.3-5.1); Sodium 138 mmol/L (135-145)
--- NOTE | 2023-06-23 06:47 | ED_ITS ---
HPI - Male Genitourinary General Chief complaint: Urogenital-Male Stated complaint: blood clots in urine Time Seen by Provider: 06/23/23 06:24 Source: patient, family, EMS and RN notes reviewed Mode of arrival: EMS Limitations: no limitations History of Present Illness HPI Narrative: Patient is an 87-year-old male with history of AFib on warfarin, pacemaker, HTN, HLD, osteoarthritis, enlarged prostate, PAD presenting to the emergency department with complaint of hematuria which began last night. Patient noted hematuria beginning around 7:00 p.m. last night, around 3:00 a.m. noted clots and some difficulty urinating due to the clots. Does report mild dysuria and sensation of being unable to fully empty his bladder. He denies self catheterization. He denies any abdominal pain. Denies nausea, vomiting, diarrhea, constipation. Denies hematochezia or melena. Denies fevers. Denies any recent falls or other trauma. Reports 1 prior episode of hematuria years ago after being cardioverted due to his AFib, denies any episodes since. Also reports that he recently noted the nails to both great toes have began to turn black, denies any known injury to toes or feet. MD Complaint: other (Hematuria) Onset (ago): hour(s) Duration: progressively worsening Quality: burning Relieving factors: none Exacerbating factors: urination Associated symptoms: Reports urinary retention, blood in urine and dysuria Related Data Home Medications Medication Instructions Recorded Confirmed magnesium oxide 500 mg tablet 500 mg PO DAILY 02/15/22 05/13/23 triamcinolone acetonide 0.1 % 1 appl topical BID 03/29/23 05/13/23 topical cream diltiazem HCl 180 mg 180 mg PO DAILY 06/23/23 capsule,extended release 24 hr warfarin 2 mg tablet 2 mg PO 4XW 06/23/23 warfarin 2 mg tablet 4 mg PO 3XW 06/23/23 Previous Rx's Medication Instructions Recorded atorvastatin 20 mg tablet 20 mg PO DAILY #90 tabs 10/05/22 triamterene 75 1 tab PO DAILY #90 tabs 01/06/23 mg-hydrochlorothiazide 50 mg tablet diltiazem HCl 240 mg 240 mg PO DAILY #60 caps 03/14/23 capsule,extended release 24 hr warfarin 2 mg tablet See Rx Instructions .Route 05/24/23 .COMPLEX 90 days #120 tabs Allergies Allergy/AdvReac Type Severity Reaction Status Date / Time No Known Allergies Allergy Verified 06/10/23 10:18 [No Known Allergies*] Review of Systems 2 Review of Systems: As per HPI. Yes all other systems are reviewed and are negative Constitutional: Constitutional: Reports as per HPI [facility] Past Medical History Medical History Atrial fibrillation Current use of 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 therapy Hyperlipidemia Hypertension, essential, benign Osteoarthritis Pacemaker (~2008) Surgical History Amputated toe of left foot History of appendectomy History of cardiac pacemaker History of cardiac radiofrequency ablation (RFA) History of colonoscopy History of eye surgery Status post left foot surgery (~02/2020) Family History Family History Father No problems noted. Mother No problems noted. Social History Social History Housing: House Alcohol intake: current Alcohol intake frequency: a few times a week Alcohol type: beer Patient Tobacco Use Status: Former Tobacco user Quit Date: 1979 Smoked: 15 Smoked in Last 30 Days: No e-Cigarette/Vaping Use: Never Used Advance Directives: No Advance Directives Information Provided: Yes service: No Current occupational status: retired Hearing needs: No Vision needs: Yes (Glasses) Physical Exam 2 Vital Signs: Vital Signs: Last Vital Signs Temp 97.4 F 06/23/23 06:14 Pulse 75 06/23/23 11:17 Resp 15 06/23/23 11:17 BP 110/64 06/23/23 11:17 Pulse Ox 97 06/23/23 11:17 O2 Del Method Room Air 06/23/23 11:17 BMI result Body Mass Index 28.7 Vital signs have been reviewed and appear to be correct. Blood pressure normal. Heart rate normal. Respiratory rate normal. Temperature normal. Oxygen saturation normal. Const: General: cooperative, healthy appearing and no acute distress O rientation/consciousness: oriented to person, oriented to place, oriented to time and patient oriented x3 Limitations: no limitations HEENT: Head: Yes normocephalic and Yes atraumatic Ears: external ears normal General nose exam: Normal external nose present Face and sinus: Yes face symmetric Mouth: oropharynx normal and moist mucous membranes Throat: Yes uvula midline Eyes: Pupils: Equal, round and reactive pupils present Neck: Neck: Yes normal visual inspection and Yes supple Resp: Effort & Inspection: normal respiratory effort and able to speak in complete sentences Auscultation: clear to auscultation bilaterally Cardio: Rate: regular rate Rhythm: regular rhythm Heart sounds: S1 normal heart sound present and S2 normal heart sound present GI: Palpation (GI): Soft to palpation and nontender Auscultation: n ormoactive bowel sounds : General: Yes no CVA tenderness Back/Spine/Pelvis: Back: no CVA tenderness Skin: General skin exam: elasticity normal and turgor normal Neuro: General: oriented to person, oriented to place, oriented to time, patient oriented x3, moves all extremities, no focal motor deficits and CN's II- XI intact bilaterally Cranial nerves: Yes Equal, round and reactive pupils present Cognition (Neuro): normal cognition Extrem: General: Yes full ROM, Yes no pedal edema and Yes no calf tenderness Psych: Mental Status: mental status grossly normal Affect: normal affect Thought process: Normal thought process present Medical Decision Making Medical Decision Making MDM Narrative: Patient is an 87-year-old male with history of AFib on warfarin, pacemaker, HTN, HLD, osteoarthritis, enlarged prostate, PAD presenting to the emergency department with complaint of hematuria which began last night. On exam patient is awake, A+Ox3, VS WNL, afebrile, normal neurological exam without focal deficits, physical exam findings as above. Given reported symptoms and physical exam findings, initial differential includes UTI, BPH, nephrolithiasis, over anticoagulation, glomerulonephritis. Labs notable for mild anemia consistent with baseline, no leukocytosis, INR within therapeutic range, no evidence of HERSON, no significant electrolyte abnormalities. Gross hematuria noted on exam, UA positive for 3+ blood, 2+ protein, do not suspect UTI. CT notable for no obstructing stones, irregularly-shaped hyperdense focus in bladder. My interpretation is in agreement with the radiologist's interpretation. Patient family updated on results and all questions answered. Patient now stating he is unable to urinate. States he was in the bathroom and was urinating when his stream suddenly stopped but he still felt the urge to urinate. Indwelling catheter placed and bladder irrigated with saline by nurse. Catheter drained red tinted fluid without clots. Patient reporting concern that he would not be able to urinate once catheter removed. Bladder scan revealed 35 mL. Catheter removed and patient was able to urinate successfully without difficulty. Feel patient is stable for discharge home with referral to Urology for further evaluation and management. Return precautions discussed at bedside with patient and family. Patient and family verbalized understanding of and agreement with plan. Differential Diagnosis Differential Diagnoses: The differential diagnosis associated with the presentation includes As per [facility]. Lab Data [facility] Lab Attestation statement: I reviewed the patient's lab results. As per [facility]. 06/23/23 06:22 06/23/23 06:22 Labs: Lab Results 06/23/23 06/23/23 Range/Units 06:22 07:17 WBC 5.6 (4.8-10.8) X10*3/uL RBC 4.61 (4.60-5.80) X10*6/uL Hgb 13.6 L (14.0-18.0) g/dl Hct 41.2 L (42.0-52.0) % MCV 89.4 (80.0-98.0) fL MCH 29.5 (27.0-33.0) pg MCHC 33.0 (31.0-36.0) g/dl RDW 13.9 (11.0-16.0) % Plt Count 191 (160-400) X10*3/uL MPV 9.6 (9.4-12.4) fL Immature Gran % (Auto) 0.2 (0.0-0.4) % Neut % (Auto) 55.1 (45-73) % Lymph % (Auto) 34.6 (20-40) % [place] % (Auto) 7.7 (2-11) % Eos % (Auto) 2.0 (0-4) % Baso % (Auto) 0.4 (0-2) % Lymph # (Auto) 1.9 (1.2-4.9) X10*3/uL [place] # (Auto) 0.4 (0.1-1.2) X10*3/uL Eos # (Auto) 0.1 (0.0-0.4) X10*3/uL Baso # (Auto) 0.0 (0.0-0.2) X10*3/uL Abs Immat Gran (auto) 0.01 (0.00-0.03) X10*3/uL Absolute Neuts (auto) 3.1 (2.0-8.3) x10*3/uL Absolute Nucleated RBC 0.000 (0.0-0.012) X10*3/uL Nucleated RBC % (auto) 0.0 (0.0-0.2) /100WBC PT 35.8 H (11.1-13.3) SEC INR 2.9 H (0.9-1.1) Sodium 138 (135-145) mmol/L Potassium 3.5 (3.3-5.1) mmol/L Chloride 100 (96-108) mmol/L Carbon Dioxide 30 H (22-29) mmol/L Anion Gap 12 (12-20) BUN 16 (9-16) mg/dL Creatinine 0.93 (0.5-1.4) mg/dL Estim Creat Clear Calc 73.1 Estimated GFR > 60 Random Glucose 104 (60-115) mg/dL Calcium 9.3 (8.4-10.2) mg/dL Urine Color RED Urine Appearance Turbid Urine pH 8.0 (5.0-9.0) Ur Specific [place] 1.015 (1.005-1.025) Urine Protein 100 (2+) H (Neg-Trace) mg/dL Urine Glucose (UA) Negative (Negative) mg/dL Urine Ketones Negative (Negative) mg/dL Urine Blood Large (3+) H (Negative) Urine Nitrite Negative (Negative) Ur Leukocyte Esterase Negative (Negative) Urine RBC >20 H (0-2) /HPF Urine WBC 21-50 H (0-5) /HPF Ur Squamous Epith Cells 0-2 (0-2) /HPF Urine Bacteria None Seen (None Seen) Hyaline Casts 0-2 (0-2) /LPF Independent Interpretation I performed an independent interpretation of an: CT Scan Interpretation: No evidence of obstructing stone, no hydronephrosis, irregularly shaped hyperdense focus likely a blood clot in bladder Radiology Impression Discussion of test interpretation with radiology: I have reviewed the radiologist's reading. Radiologist Impression: CT/CT abdomen pelvis wo IV con IMPRESSION: 1. 2 mm nonobstructing left renal calculus. No hydronephrosis. 2. Irregularly-shaped hyperdense focus which appears to be within the lumen of the bladder which measures approximately 2.1 x 1.0 x 2.2 cm. This is a nonspecific finding. This may represent a blood clot. a bladder mass is also within the differential. Given provided history, direct inspection likely warranted. Fleischner guidelines were followed. Independent Historian Clinical information obtained from an independent historian. History obtained from or confirmed by: Other (child) External Record Review External record reviewed: Inpatient record, Office record and Outpatient record Chronic Conditions Patient?s care impacted by: Other (AFib, anticoagulation) Discharge Plan Discharge Clinical Impression: Gross hematuria Patient Disposition: Home, Self-Care Instructions: Hematuria (ED) Additional Instructions: You were evaluated in the emergency department today for blood in your urine. Your urinalysis did not show evidence of infection. Your bladder was irrigated in the emergency department and you were able to urinate afterwards. You are being referred to Urology for further evaluation of your symptoms, please call the office to set up an appointment. You should follow up with your primary care provider this week also. Return to the emergency department if you develop pain, inability to urinate, difficulty urinating, fever 100.4? F or greater, nausea and vomiting, or any other concerning symptoms. Prescriptions: No Action atorvastatin 20 mg tablet 20 mg PO DAILY Qty: 90 8RF triamterene-hydrochlorothiazid 75-50 mg tablet 1 tab PO DAILY Qty: 90 1RF warfarin 2 mg tablet See Rx Instructions .ROUTE .COMPLEX 90 Days Qty: 120 8RF Protocol: Dose Management Condition: Tuesday (Week One) Dose/Route: 2 mg Instruction: 1 x 2 mg tablet Condition: Tuesday Dose/Route: 4 mg Instruction: 2 x 2 mg tablets Condition: Tuesday Dose/Route: 2 mg Instruction: 1 x 2 mg tablet Condition: Tuesday Dose/Route: 4 mg Instruction: 2 x 2 mg tablets Condition: Dose/Route: 2 mg Instruction: 1 x 2 mg tablet Condition: Tuesday Dose/Route: 4 mg Instruction: 2 x 2 mg tablets Condition: Tuesday Dose/Route: 2 mg Instruction: 1 x 2 mg tablet Condition: Tuesday (Week Two) Dose/Route: 2 mg Instruction: 1 x 2 mg tablet Condition: Tuesday Dose/Route: 4 mg Instruction: 2 x 2 mg tablets Condition: Tuesday Dose/Route: 2 mg Instruction: 1 x 2 mg tablet Condition: Tuesday Dose/Route: 4 mg Instruction: 2 x 2 mg tablets Condition: Dose/Route: 2 mg Instruction: 1 x 2 mg tablet Condition: Tuesday Dose/Route: 4 mg Instruction: 2 x 2 mg tablets Condition: Tuesday Dose/Route: 2 mg Instruction: 1 x 2 mg tablet Protocol Text: Adjustment Start Date: Tuesday06/10/23 INR Value: Pending INR Date: 06/10/23 Recheck Date: 07/08/23 Additional Instructions: cont same dosing call with any changes in medications Rx Instructions: 4MG X3DAYS/ 2MG X4DAYS warfarin 2 mg tablet 4 mg PO 3XW warfarin 2 mg tablet 2 mg PO 4XW diltiazem HCl 180 mg capsule,extended release 24hr 180 mg PO DAILY magnesium oxide 500 mg tablet 500 mg PO DAILY triamcinolone acetonide 0.1 % cream 1 appl topical BID diltiazem HCl 240 mg capsule,extended release 24hr 240 mg PO DAILY Qty: 60 3RF Referrals: [facility] [Provider Group]
--- NOTE | 2023-06-23 07:21 | PC.NURSE ---
Pt able to stand and void approx 350cc of red urine, reporting some burning with urination.
[2023-06-23 07:49] LABS: Appearance Urine Turbid; Glucose Urine UA Negative (Negative); Nitrite Urine Negative (Negative); Specific Gravity - Urine 1.015 (1.005-1.025); UMIC TRIGGER UACC YES; Urine Blood Large (3+) (Negative); Urine Ketones Negative (Negative); Urine Protein 100 (2+) mg/dL (Neg-Trace)
[2023-06-23 07:51] LABS: Color Urine RED; Leukocyte Esterase Urine Negative (Negative)
[2023-06-23 07:52] LABS: Bacteria Urine None Seen (None Seen); Hyaline Casts Urine 0-2 /LPF (0-2); Squamous Epithelial Cell Urine 0-2 /HPF (0-2); UACC Culture Trigger YES; WBC Urine 21-50 /HPF (0-5)
[2023-06-23 07:53] LABS: RBC Urine >20 /HPF (0-2)
--- NOTE | 2023-06-23 10:00 | PC.NURSE ---
Goldman catheter placed with ease using aseptic technique. red urine draining. catheter then irrigated with saline manually, no resistence.
[2023-06-23 11:17] VITALS: BP 110/64; PULSE 75; RESP 15; O2SAT 97
== END 2023-06-23 12:05 | disposition home or self-care (01) ==
PROVIDERS: Emergency Provider Emergency Medicine; PCP Nurse Practitioner Family
DX: R31.0 Gross hematuria (principal); I48.91 Unspecified atrial fibrillation; R30.0 Dysuria; R10.2 Pelvic and perineal pain; Z87.891 Personal history of nicotine dependence; Z79.01 Long term (current) use of 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s; Z79.899 Other long term (current) drug therapy
CPT/HCPCS: 36415; 51798; 74176; 80048; 81001; 85025; 85610; 87086; 93005; 99284; 99285

== ENCOUNTER 2023-07-08 09:23 | Outpatient (AMB) | payer MEDICARE, OTHER, SELFPAY ==
--- NOTE | 2023-07-08 09:36 | MHC.OFFVISCO ---
Intake Intake Visit Reasons: Anticoagulation Allergies No Known Allergies [No Known Allergies*] Allergy (Verified 07/08/23 09:26) Medication List - Last Reconciled 07/08/23 by Moraima Hilton RN atorvastatin 20 mg PO DAILY diltiazem HCl 180 mg PO DAILY diltiazem HCl 240 mg PO DAILY magnesium oxide 500 mg PO DAILY triamcinolone acetonide 0.1% 1 appl topical BID triamterene-hydrochlorothiazid 75-50 mg 1 tab PO DAILY warfarin 4 mg PO 3XW warfarin 2 mg PO 4XW warfarin See Protocol 4MG X3DAYS/ 2MG X4DAYS 90 days Nursing Note PT.STATES THAT HE HAD HEMATURIA WITH CLOTTING AND PAIN ON 06/23 WITH FLUSHING IN THE ED. WARFARIN WAS HELD FOR 2 DAYS THEN RESUMED AT USUAL DOSE. HE HAS HAD NO FURTHER BLEEDING OR PAIN. TO FOLLOW-UP SOON WITH UROLOGY() PT.DENIES ANY CP,SOB OR MED CHANGES. WILL CONTINUE SAME DOSE AND FOLLOW-UP IN 4 WEEKS. GOOD UNDERSTANFING OF DOSING INSTR. PT.AGREES TO CALL [facility] IF ANY FURTHER BLEEDING OR OTTHER CONCERNS ARISE. Anti-Coag Initial Assessment Social Hx Patient Tobacco Use Status: Former Tobacco user Quit Date: 1979 alcohol intake: current Alcohol intake frequency: a few times a week Coding Level of Care Code Est Patient Level 1 Diagnoses Current use of 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 therapy Z79.01 Assessment & Plan Assessment & Plan (1) Current use of 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 therapy: Code(s): Z79.01 - snf (current) use of 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s Category: Medical
[2023-07-08 16:41] LABS: Prothrombin Time Whole Bld POC 34.5 sec (11.1-13.5); ~PT, ~INR - Anti Coag Clinic 2.9 (0.9-1.1)
== END 2023-07-08 09:40 | disposition home or self-care (01) ==
LOC: HO.ACS 09:23
PROVIDERS: PCP Nurse Practitioner Family; Visit Provider Internal Medicine
DX: Z79.01 Long term (current) use of 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s (principal)

== ENCOUNTER → 2023-07-08 09:23 | Outpatient (BNVA) | payer MEDICARE, OTHER, SELFPAY | PROVIDERS: PCP Nurse Practitioner Family; Visit Provider Internal Medicine | DX: I48.20 Chronic atrial fibrillation, unspecified (principal); Z79.01 Long term (current) use of 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s; Z51.81 Encounter for therapeutic drug level monitoring | CPT/HCPCS: 85610; 99211 ==

== ENCOUNTER 2023-07-14 14:34 | Outpatient (AMB) | payer MEDICARE, OTHER, SELFPAY ==
--- NOTE | 2023-07-14 14:39 | A.OFFVIS_ITS ---
Intake Intake Visit Reasons: gross hematuria Intake Note: New Patient presents for initial visit for gross hematuria Urology Medications: none Blood Thinner: warfarin Change Lead Required: No Accompanied by: Daughter Allergies No Known Allergies [No Known Allergies*] Allergy (Verified 07/14/23 20:56) Medication List - Last Reconciled 07/14/23 by DEAN Ward atorvastatin 20 mg PO DAILY diltiazem HCl 180 mg PO DAILY triamcinolone acetonide 0.1% 1 appl topical BID triamterene-hydrochlorothiazid 75-50 mg 1 tab PO DAILY warfarin 4 mg See Protocol PO 3XW warfarin 2 mg See Protocol PO 4XW warfarin See Protocol 4MG X3DAYS/ 2MG X4DAYS 90 days HPI HPI Comments History of Present Illness Details Zander is a pleasant 87-year-old male patient of Dr. Vizcarra who was accompanied by his daughter at today's office visit. He has a PMH of atrial fibrillation, hyperlipidemia, hypertension, osteoarthritis, and has a pacemaker. He presents to the office today for follow-up of his gross hematuria. In discussion with the patient today reports having seeked emergency room care approximately 3 weeks ago for gross hematuria at which time a CT was ordered and performed. These results reviewed with the patient his daughter today. 2 mm nonobstructing left renal calculus. No hydronephrosis. Irregular shaped hyperdense focus which appears to be within the lumen of the bladder which measures approximately 2.1 x 1.0 x 2.2 cm. This is a nonspecific finding. This may represent a blood clot or bladder mass is also within the differential. Of note, patient was seen in the office approximately 6 months ago for an elevated PSA at which time recommendations were made for redraw of PSA as well as retroperitoneal ultrasound however it does not appear patient to have completed recommendations. Discussed and stressed the importance of following up for continuity of care as well as overall health and well-being. 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 He also reports a previous smoking history however quit over 40 years ago. He reports having smoked for approximately 15-20 years no more than half a pack per day. PSAs are as follows. 06/28--1.3 04/29--3.2 10/28--5.7 Discussed potential causes for elevated PSA as well as gross hematuria. He does report feeling incomplete bladder emptying as well as weak urinary stream. He otherwise denies incontinence, dysuria, foul-smelling urine, fever, flank pain, and or chills. In office urinalysis results reviewed with the patient today no microscopic hematuria noted. Discussed further workup with urine cytology, r edraw of PSA, and in office cystoscopy for further assessment evaluation. All questions were answered. He otherwise offers no other issues or concerns at this time. [facility] Medical History Hypertension, essential, benign Hyperlipidemia Atrial fibrillation Osteoarthritis Pacemaker (~2008) Current use of 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 therapy Surgical History History of colonoscopy History of eye surgery History of appendectomy Status post left foot surgery (~02/2020) Amputated toe of left foot History of cardiac pacemaker History of cardiac radiofrequency ablation (RFA) Family History Father No problems noted. Mother No problems noted. Social History Housing: House Alcohol intake: current Alcohol intake frequency: a few times a week Alcohol type: beer Patient Tobacco Use Status: Former Tobacco user Quit Date: 1979 Years Smoked: 15 e-Cigarette/Vaping Use: Never Used service: No Current occupational status: retired Hearing needs: No Vision needs: Yes (Glasses) Review of Systems Const All systems reviewed & are unremarkable except as noted in HPI and below Reports no additional complaints Eyes Reports no additional complaints ENT Reports no additional complaints Card Reports as per HPI Resp Reports no additional complaints GI Reports no additional complaints Reports as per HPI Musc Reports no additional complaints Neuro Reports no additional complaints Psych Reports no additional complaints Endo Reports no additional complaints Ike/Lymph Reports no additional complaints Aller/Immun Reports no additional complaints Physical Exam Const General: cooperative, healthy appearing, comfortable, no acute distress, well developed, alert and awake Orientation/consciousness: patient oriented x3 Limitations: no limitations HEENT Head: Yes normal to inspection, Yes normocephalic and Yes atraumatic Ears: hearing grossly normal bilaterally Eyes General: appearance normal, both eyes and all related structures Neck Neck: Yes normal visual inspection and Yes trachea midline Chest Chest palpation & inspection: normal inspection of the chest Resp Effort & Inspection: normal respiratory effort and able to speak in complete sentences Cardio Rate: regular rate GI Inspection: Yes normal to inspection Rectal Exam - Male: Yes visual inspection normal, Yes normal sphincter tone and Yes prostate normal (enlarged ) General: Yes no CVA tenderness Back/Spine/Pelvis Back: no CVA tenderness Skin General skin exam: no rashes or lesions noted Neuro General: patient oriented x3 Extrem General: Yes normal to inspection Psych Appearance: grossly normal and well kempt Mental Status: mental status grossly normal Speech and movement: Normal speech and movement present and Clear speech present Affect: normal affect Attitude: cooperative Thought process: Normal thought process present Thought content: Normal thought content present Insight: Good insight present (Psych) Judgement: Good judgement present (Psych) Results AMB Urinalysis, Automated UA Leukoctes 0 Paulino/uL Last Edit by [employer] on 07/14/23 15:03 UA Nitrite Negative Last Edit by [employer] on 07/14/23 15:03 UA Urobilinogen 0.2 mg/dL Last Edit by [employer] on 07/14/23 15:03 UA Protein 15 mg/dL Last Edit by [employer] on 07/14/23 15:03 UA pH 5.5 Last Edit by [employer] on 07/14/23 15:03 UA Blood 0 Robert/uL Last Edit by [employer] on 07/14/23 15:03 UA Specific [place] 1.030 Last Edit by [employer] on 07/14/23 15:03 UA Ketone Negative Last Edit by [employer] on 07/14/23 15:03 UA Bilirubin 0 mg/dL Last Edit by [employer] on 07/14/23 15:03 UA Glucose 0 mg/dL Last Edit by [employer] on 07/14/23 15:03 Results Reviewed Results Reviewed: Laboratory Last Values Urine pH (Auto) 5.5 07/14/23 15:01 Specific [place] (Auto) 1.030 07/14/23 15:01 Urine Protein (Auto) 15 mg/dL 07/14/23 15:01 Glucose (UA)(Auto) 0 mg/dL 07/14/23 15:01 Urine Ketones (Auto) Negative 07/14/23 15:01 Urine Blood (Auto) 0 Robert/uL 07/14/23 15:01 Urine Nitrite (Auto) Negative 07/14/23 15:01 Urine Bilirubin (Auto) 0 mg/dL 07/14/23 15:01 Urine Urobilinogen (Auto) 0.2 mg/dL 07/14/23 15:01 Leukocyte Esterase (Auto) 0 Paulino/uL 07/14/23 15:01 Date of Service: 06/23/23 EXAMINATION: CT ABDOMEN AND PELVIS WITHOUT CONTRAST FINDINGS: Visualized lung bases demonstrate emphysematous changes with likely some mild superimposed interstitial lung disease. The liver is normal in size. The gallbladder is normal in appearance. The pancreas, spleen and adrenal glands are unremarkable. Symmetrically sized kidneys. There is a single 2 mm nonobstructing calculus within the lower pole of the left kidney. No right-sided renal calculi are noted. There is no hydronephrosis of either kidney. There is mild bilateral perinephric stranding, nonspecific. Small hiatal hernia. The stomach is relatively decompressed. Normal caliber loops of small and large bowel. Mild to moderate colonic stool burden. Normal caliber abdominal aorta demonstrating moderate atherosclerotic disease. No retroperitoneal lymphadenopathy. The bladder is well-distended. There is an irregularly-shaped hyperdense focus which appears to be within the lumen of the bladder which measures approximately 2.1 x 1.0 x 2.2 cm, nonspecific. The prostate gland is normal in size. Small fat-containing inguinal hernias. No gross free pelvic fluid. No inguinal lymphadenopathy. Diffuse osteopenia. Moderate degenerative changes of the spine. IMPRESSION: 1. 2 mm nonobstructing left renal calculus. No hydronephrosis. 2. Irregularly-shaped hyperdense focus which appears to be within the lumen of the bladder which measures approximately 2.1 x 1.0 x 2.2 cm. This is a nonspecific finding. This may represent a blood clot. a bladder mass is also within the differential. Given provided history, direct inspection likely warranted. Assessment & Plan Assessment & Plan (1) Elevated PSA: Code(s): R97.20 - Elevated prostate specific antigen [PSA] (2) Gross hematuria: Code(s): R31.0 - Gross hematuria (3) Weak urinary stream: Code(s): R39.12 - Poor urinary stream (4) Feeling of incomplete bladder emptying: Code(s): R39.14 - Feeling of incomplete bladder emptying Plan In office urinalysis results reviewed with the patient and his daughter today; as noted above; will send for urine cytology. Discussed at length importance of following up as recommended for continuity of care as well as overall health and well-being. Will obtain redraw of PSA Discussed at length potential causes of gross hematuria as well as elevated PSA. Recent CT results reviewed with the patient today; as noted above. Discussed, educated, encouraged to continue drinking water daily. Follow-up in office cystoscopy with Dr. Valente with PSA to be completed prior; or sooner with any issues, concerns, and or questions. Orders: Orders Prostate Specific Antigen Today R97.20 - Elevated prostate specific antigen [PSA] AMB Urinalysis Automated Today Z13.9 - Encounter for screening, unspecified Urine Cytology Today N40.0 - Benign prostatic hyperplasia without lower urinary tract symptoms Patient Instructions: The patient had an opportunity to ask questions regarding the treatment plan. All questions were answered. Physical exam, labs, and imaging were discussed and reviewed in detail. As well as risks, benefits, and discussion of treatment choices. No major barriers to understanding were identified. The patient expressed understanding and agreement with the above treatment plan. The patient was made aware they should contact our office by phone for worsening of their current condition, the appearance of new symptoms, or with any questions or concerns. Compliance is encouraged with any medications and follow up testing that is ordered. It is a privilege to be allowed the opportunity to participate in? your urological care.? Again, if you have any questions or concerns If you have any questions or concerns please do not hesitate to contact me. The office is [phone]. This note is constructed using voice recognition software. While every effort has been made to ensure accuracy supervisor cytogenetic laboratory errors may have been included. Yours sincerely, DEAN Ward Coding Level of Care Code Est Pt Level 3 (13181) Diagnoses Elevated PSA R97.20 Gross hematuria R31.0 Weak urinary stream R39.12 Feeling of incomplete bladder emptying R39.14
== END 2023-07-14 15:26 | disposition home or self-care (01) ==
PROVIDERS: PCP Nurse Practitioner Family; Visit Provider Nurse Practitioner Family
DX: R97.20 Elevated prostate specific antigen [PSA] (principal); R31.0 Gross hematuria; R39.12 Poor urinary stream; R39.14 Feeling of incomplete bladder emptying
CPT/HCPCS: 99213

== ENCOUNTER 2023-07-14 14:34 | Outpatient (REF) | payer MEDICARE, OTHER, SELFPAY ==
[2023-07-14 16:34] LABS: Urine Cytology See Pathology rpt
== END 2023-07-14 14:35 | disposition home or self-care (01) ==
LOC: HO.LNP 14:34
PROVIDERS: PCP Nurse Practitioner Family; Visit Provider Nurse Practitioner Family
DX: N40.0 Benign prostatic hyperplasia without lower urinary tract symptoms (principal); R31.0 Gross hematuria; R39.14 Feeling of incomplete bladder emptying; R39.12 Poor urinary stream; R97.20 Elevated prostate specific antigen [PSA]
CPT/HCPCS: 81003; 88112; 99212

== ENCOUNTER 2023-07-18 15:37 | Outpatient (AMB) | payer MEDICARE, OTHER, SELFPAY ==
--- NOTE | 2023-07-18 16:20 | MHC.PC.OV ---
Vital Signs 07/18/23 16:22 07/18/23 18:00 Height 6 ft 3 in Weight 226 lb BMI 28.2 BP 110/64 Blood Pressure Location Rt brachial Position Sitting Pulse 125 H 95 Pulse Source Pulse Oximeter Pulse Oximetry (%) 97 Oxygen Delivery Method Room Air Intake Visit Reasons: black toe nails Intake Note: Patient here to follow up on his ED visit due to urinating blood for three days and they flushed his kidneys and would also address the issue hes having with his toe as one is completely black and the other is just starting. Dr. Shankar hernandez Occupational Health And Safety Manager Required: Yes Accompanied by: Self / Same As Patient Allergies No Known Allergies [No Known Allergies*] Allergy (Verified 07/18/23 16:22) Tobacco use date assessed: 02/03/23 HPI black toe nails HPI Details Pt reports noticing black toenails approximately 2 months ago. He has seen vascular in the past, see previous notes. Arterial studies were done which showed no significant stenosis. Pt has followed up with podiatry in the past. Will refer back to previous provider. Pt reports he was supposed to go to a procedure with the missile mechanic, but this was cancelled because of his 's health. [facility] Medical History Hypertension, essential, benign Hyperlipidemia Atrial fibrillation Osteoarthritis Pacemaker (~2008) Current use of 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 therapy Surgical History History of colonoscopy History of eye surgery History of appendectomy Status post left foot surgery (~02/2020) Amputated toe of left foot History of cardiac pacemaker History of cardiac radiofrequency ablation (RFA) Family History Father No problems noted. Mother No problems noted. Social History Housing: House Alcohol intake: current Alcohol intake frequency: a few times a week Alcohol type: beer Patient Tobacco Use Status: Former Tobacco user Quit Date: 1979 Years Smoked: 15 e-Cigarette/Vaping Use: Never Used service: No Current occupational status: retired Hearing needs: No Vision needs: Yes (Glasses) Questionnaire Thrive Questionnaire Date Thrive assessed: 04/22/22 CHEN-7 AMB Questionnaire CHEN-7 Date CHEN - 7 assessed: 04/22/22 Source: Developed by Drs. Alan Kim, Mandi Novak, Brendon Barajas and colleagues, with an educational antoni from [employer]. Review of Systems Const Reports as per HPI Physical exam (Primary Care) Vital Signs: Last Vital Signs Pulse 95 07/18/23 18:00 BP 110/64 07/18/23 16:22 Pulse Ox 97 07/18/23 16:22 Oxygen Delivery Method Room Air 07/18/23 16:22 BMI result Body Mass Index 28.2 Tobacco/Smoking Status: Tobacco use Status Tobacco use date assessed 02/03/23 07/18/23 16:21 Patient Tobacco Use Status Former Tobacco user 07/18/23 16:21 e-Cigarette/Vaping Use Never Used 07/18/23 16:21 Thrive Assessment: Date of Thrive Assessment Date Thrive assessed 04/22/22 07/18/23 16:21 Const General: cooperative Orientation/consciousness: patient oriented x3 Resp Effort & Inspection: normal respiratory effort Auscultation: clear to auscultation bilaterally Cardio Rate: regular rate Rhythm: abnormal rhythm irregularly irregular Heart sounds: S1 normal heart sound present and S2 normal heart sound present Neuro General: patient oriented x3 Extrem Other: left foot with dark big toenail, absent dorsalis pedis pulse, right foot slight darkness to big toenail, 2nd toe distal aspect with darker black discoloration with callous formation, + sensation bilat Psych Appearance: grossly normal Mental Status: mental status grossly normal Speech and movement: Normal speech and movement present Affect: normal affect Attitude: cooperative Thought process: Normal thought process present Thought content: Normal thought content present Insight: Good insight present (Psych) Judgement: Good judgement present (Psych) Assessment and Plan Assessment & Plan (1) PAD (peripheral artery disease): Code(s): I73.9 - Peripheral vascular disease, unspecified Plan: Referred to podiatry (2) Discoloration of skin of toe: Code(s): L81.9 - Disorder of pigmentation, unspecified Plan: Referred to podiatry Plan The patient agreed to the use of a medical equipment repairer for this encounter. Scribed for DEAN Le by Nirali Momin medical equipment repairer, on 07/18/2023 at 17:00 EST. Orders: Referrals Podiatry Referral I73.9 - Peripheral vascular disease, unspecified, L81.9 - Disorder of pigmentation, unspecified Coding Level of Care Code Est Pt Level 3 (98957) Diagnoses PAD (peripheral artery disease) I73.9 Discoloration of skin of toe L81.9
[2023-07-18 16:22] VITALS: BP 110/64; PULSE 125; O2SAT 97; BMI 28.2
[2023-07-18 18:00] VITALS: PULSE 95
== END 2023-07-18 18:15 | disposition home or self-care (01) ==
PROVIDERS: PCP Nurse Practitioner Family; Visit Provider Nurse Practitioner Family
DX: I73.9 Peripheral vascular disease, unspecified (principal); L81.9 Disorder of pigmentation, unspecified
CPT/HCPCS: 99213

== ENCOUNTER 2023-07-20 15:17 | Outpatient (AMB) | payer MEDICARE, OTHER, SELFPAY ==
--- NOTE | 2023-07-20 15:51 | A.OFFVIS_ITS ---
Intake Intake Visit Reasons: cysto Intake Note: Patient presents today for a CYSTOSCOPY Procedure: Meds: None Allergies to Antibiotic: No Known Allergies Blood Thinner: Warfarin Urinalysis test cleared for Cysto Disposable Uro-G Cystoscope Cannula: Lot: [id number] Exp: 12/19/2024 Physical Security Specialist Required: No Accompanied by: Daughter Allergies No Known Allergies [No Known Allergies*] Allergy (Verified 08/05/23 08:47) HPI HPI Comments History of Present Illness Details Zander is here for office cysto: 07/20/23-- CYSTOSCOPY - mild Trabeculation, bruising noted to bladder mucosa, multifocal areas, may represent changes from prior catheter, prostatic urethra non obstructive, bulbous urethra WNL, no suspicious bladder lesions visualized. Review of chart: 07/14/23- seen by MODEL SET ARTIST Zander is a pleasant 87-year-old male patient of Dr. Vizcarra who was accompanied by his daughter at today's office visit. He has a PMH of atrial fibrillation, hyperlipidemia, hypertension, osteoarthritis, and has a pacemaker. He presents to the office today for follow-up of his gross hematuria. In discussion with the patient today reports having seeked emergency room care approximately 3 weeks ago for gross hematuria at which time a CT was ordered and performed. These results reviewed with the patient his daughter today. 2 mm nonobstructing left renal calculus. No hydronephrosis. Irregular shaped hyperdense focus which appears to be within the lumen of the bladder which measures approximately 2.1 x 1.0 x 2.2 cm. This is a nonspecific finding. This may represent a blood clot or bladder mass is also within the differential. Of note, patient was seen in the office approximately 6 months ago for an elevated PSA at which time recommendations were made for redraw of PSA as well as retroperitoneal ultrasound however it does not appear patient to have completed recommendations. Discussed and stressed the importance of following up for continuity of care as well as overall health and well-being. 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 He also reports a previous smoking history however quit over 40 years ago. He reports having smoked for approximately 15-20 years no more than half a pack per day. Imaging: CTAP 1. 2 mm nonobstructing left renal calcu beck. No hydronephrosis. 2. Irregularly-shaped hyperdense focus which appears to be within the lumen of the bladder which measures approximately 2.1 x 1.0 x 2.2 cm. PSA results--- 06/28--1.3 04/29--3.2 10/28--5.7 Plan:07/20/23-- FU in 2 months [facility] Medical History Hypertension, essential, benign Hyperlipidemia Atrial fibrillation Osteoarthritis Pacemaker (~2008) Current use of 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 therapy Surgical History History of colonoscopy History of eye surgery History of appendectomy Status post left foot surgery (~02/2020) Amputated toe of left foot History of cardiac pacemaker History of cardiac radiofrequency ablation (RFA) Family History Father No problems noted. Mother No problems noted. Social History Housing: House Alcohol intake: current Alcohol intake frequency: a few times a week Alcohol type: beer Patient Tobacco Use Status: Former Tobacco user Quit Date: 1979 Years Smoked: 15 e-Cigarette/Vaping Use: Never Used service: No Current occupational status: retired Hearing needs: No Vision needs: Yes (Glasses) Review of Systems Const All systems reviewed & are unremarkable except as noted in HPI and below Reports no additional complaints Eyes Reports no additional complaints ENT Reports no additional complaints Card Denies dyspnea Resp Denies cough and Denies dyspnea GI Reports no additional complaints Musc Reports no additional complaints Skin/Breast Denies rash and Denies unusual bruising Neuro Reports no additional complaints Psych Reports no additional complaints Endo Reports no additional complaints Ike/Lymph Reports no additional complaints Aller/Immun Reports no additional complaints Office Procedures Cystoscopy Consent Discussed risk and benefit or proposed procedure with the patient. Information consent for procedure given to the patient. Discussed technical aspects, risks, benefits and alternatives in full. Addressed all of the patient's questions and concerns regarding the procedure. The patient demonstrated knowledge and understanding. They wish to proceed with this procedure. Preparation The patient was prepped in the usual manner. A technical maintenance specialist was present and in the room. Genitalia was prepped with betadine solution in a sterile manner. Lidocaine Jelly 2% was placed into the urethra and 16Fr flexible Olympus cystoscope was inserted into the meatus after adequate lubrication. Procedure Time out per protocol performed. Bladder Inspection Bladder Inspection: The bladder was inspected in its entirety with utilization retroflexion displaying: Tumor(s): none visualized Trabeculation: mild Mucosal Erthema: mild, bruising noted to bladder mucosa, multifocal areas, may represent changes from prior catheter Orifices: normal shape and position Urethra: normal Cystoscopy findings: prostatic urethra non obstructive, bulbous urethra WNL, no suspicious bladder lesions visualized [id number] DISPOSABLE SCOPE URO-G FLEXIBLE SCOPE Procedure code (CPT) selection complete Office Meds lidocaine HCl 2 % mucosal jelly in applicator Performing Provider: Chetna Armstrong MD Performing Location: [facility] Administered by: Joan Garcia RN on 07/20/23 15:54 Dose Route Admin Location Dispensed Lot Number Expiration Date ND Infrastructure Administrator 10 mL intra-urethral 20 mL naproxen 500 mg tablet Performing Provider: Chetna Armstrong MD Performing Location: [facility] Administered by: Joan Garcia RN on 07/20/23 15:54 Dose Route Admin Location Dispensed Lot Number Expiration Date NDC Infrastructure Administrator 500 mg PO 1 tab ciprofloxacin HCl 500 mg tablet Performing Provider: Chetna Armstrong MD Performing Location: [facility] Administered by: Joan Garcia RN on 07/20/23 15:54 Dose Route Admin Location Dispensed Lot Number Expiration Date ND Infrastructure Administrator 500 mg PO 1 tab Results AMB Urinalysis, Automated UA Leukoctes 0 Paulino/uL Last Edit by CLARITZA Zurita on 07/20/23 16:21 UA Nitrite Negative Last Edit by CLARITZA Zurita on 07/20/23 16:21 UA Urobilinogen 0.2 mg/dL Last Edit by Stella Carmona A on 07/20/23 16:2 1 UA Protein 30 mg/dL Last Edit by Stella Carmona, A on 07/20/23 16:21 1+ Stella Carmona 07/20/23 16:21 UA pH 6.0 Last Edit by Stella Carmona A on 07/20/23 16:21 UA Blood 0 Robert/uL Last Edit by Stella Carmona A on 07/20/23 16:21 UA Specific [place] 1.030 Last Edit by Stella Carmona [facility] on 07/20/23 16: 21 UA Ketone Negative Last Edit by Stella Carmona [facility] on 07/20/23 16:21 UA Bilirubin 0 mg/dL Last Edit by Stella Carmona [facility] on 07/20/23 16:21 UA Glucose 0 mg/dL Last Edit by Stella Carmona [facility] on 07/20/23 16:21 Results Reviewed Results Reviewed: Laboratory Last Values Urine pH (Auto) 6.0 07/20/23 16:05 Specific [place] (Auto) 1.030 07/20/23 16:05 Urine Protein (Auto) 30 mg/dL 07/20/23 16:05 Glucose (UA)(Auto) 0 mg/dL 07/20/23 16:05 Urine Ketones (Auto) Negative 07/20/23 16:05 Urine Blood (Auto) 0 Robert/uL 07/20/23 16:05 Urine Nitrite (Auto) Negative 07/20/23 16:05 Urine Bilirubin (Auto) 0 mg/dL 07/20/23 16:05 Urine Urobilinogen (Auto) 0.2 mg/dL 07/20/23 16:05 Leukocyte Esterase (Auto) 0 Paulino/uL 07/20/23 16:05 Date of Service: 06/23/23 EXAMINATION: CT ABDOMEN AND PELVIS WITHOUT CONTRAST CLINICAL INFORMATION: Gross hematuria COMPARISON: Renal ultrasound January 10, 2023 TECHNIQUE: Multidetector volumetric imaging was performed from the superior aspect of the liver through the pubic symphysis. Sagittal and coronal reformatted images were obtained on the technologist's workstation. This CT examination was performed using dose optimization techniques as appropriate, variously including the following: *Automated exposure control *Adjustment of mA and/or kV according to patient size (this includes techniques or standardized protocols for targeted exams where dose is matched to indication/reason for exam; i.e. extremities or head) *Use of iterative reconstruction technique DLP: 792 mGy-cm FINDINGS: Visualized lung bases demonstrate emphysematous changes with likely some mild superimposed interstitial lung disease. The liver is normal in size. The gallbladder is normal in appearance. The pancreas, spleen and adrenal glands are unremarkable. Symmetrically sized kidneys. There is a single 2 mm nonobstructing calculus within the lower pole of the left kidney. No right-sided renal calculi are noted. There is no hydronephrosis of either kidney. There is mild bilateral perinephric stranding, nonspecific. Small hiatal hernia. The stomach is relatively decompressed. Normal caliber loops of small and large bowel. Mild to moderate colonic stool burden. Normal caliber abdominal aorta demonstrating moderate atherosclerotic disease. No retroperitoneal lymphadenopathy. The bladder is well-distended. There is an irregularly-shaped hyperdense focus which appears to be within the lumen of the bladder which measures approximately 2.1 x 1.0 x 2.2 cm, nonspecific. The prostate gland is normal in size. Small fat-containing inguinal hernias. No gross free pelvic fluid. No inguinal lymphadenopathy. Diffuse osteopenia. Moderate degenerative changes of the spine. IMPRESSION: 1. 2 mm nonobstructing left renal calculus. No hydronephrosis. 2. Irregularly-shaped hyperdense focus which appears to be within the lumen of the bladder which measures approximately 2.1 x 1.0 x 2.2 cm. This is a nonspecific finding. This may represent a blood clot. a bladder mass is also within the differential. Given provided history, direct inspection likely warranted. Assessment & Plan Assessment & Plan (1) Enlarged prostate: Code(s): N40.0 - Benign prostatic hyperplasia without lower urinary tract symptoms (2) Hematuria: Code(s): R31.9 - Hematuria, unspecified Plan FU in 2 months Orders: Orders AMB Cystoscopy 07/20/23 R39.14 - Feeling of incomplete bladder emptying, N40.0 - Benign prostatic hyperplasia without lower urinary tract symptoms AMB Urinalysis Automated 07/20/23 Z13.9 - Encounter for screening, unspecified Patient Instructions: The patient had an opportunity to ask questions regarding treatment plan. All questions were answered. Imaging, Laboratory studies and physical exam results were discussed and reviewed in detail. No major barriers to understanding were identified. The patient expressed understanding and agreement with the above treatment plan. The patient is aware they should contact our office by phone for worsening of their current condition or the appearance of new symptoms. Compliance is encouraged with any medications and followup testing that is ordered. It is a privilege to be allowed the opportunity to participate in the urologic care of your patient. If you have any questions or concerns regarding treatment for the above conditions please do not hesitate to contact me. The office telephone contact is [phone]. This note is constructed in part using voice recognition software. While every effort has been made to ensure accuracy gym supervisor errors may have been included. Yours sincerely, Chetna Armstrong MD Coding Level of Care Code Procedure Only Diagnoses Enlarged prostate N40.0 Hematuria R31.9 CPT Codes Cystoscopy - CPT: 76433-[id number] ([id number])
== END 2023-07-20 16:24 | disposition home or self-care (01) ==
PROVIDERS: PCP Nurse Practitioner Family; Visit Provider Urology
DX: R39.14 Feeling of incomplete bladder emptying (principal); N40.0 Benign prostatic hyperplasia without lower urinary tract symptoms; Z13.9 Encounter for screening, unspecified
CPT/HCPCS: 52000

== ENCOUNTER → 2023-07-20 15:17 | Outpatient (BNVA) | payer MEDICARE, OTHER, SELFPAY | PROVIDERS: PCP Nurse Practitioner Family; Visit Provider Urology | DX: N40.0 Benign prostatic hyperplasia without lower urinary tract symptoms (principal); R31.9 Hematuria, unspecified | CPT/HCPCS: 52000; 81003 ==

== ENCOUNTER 2023-08-05 08:43 | Outpatient (AMB) | payer MEDICARE, OTHER, SELFPAY ==
[2023-08-05 08:53] LABS: Prothrombin Time Whole Bld POC 21.4 sec (11.1-13.5); ~PT, ~INR - Anti Coag Clinic 1.8 (0.9-1.1)
--- NOTE | 2023-08-05 08:57 | MHC.OFFVISCO ---
Intake Intake Visit Reasons: Anticoagulation Allergies No Known Allergies [No Known Allergies*] Allergy (Verified 08/05/23 08:47) Medication List - Last Reconciled 08/05/23 by Lindsay Tabor RN atorvastatin 20 mg PO DAILY diltiazem HCl 180 mg PO DAILY triamcinolone acetonide 0.1% 1 appl topical BID triamterene-hydrochlorothiazid 75-50 mg 1 tab PO DAILY warfarin See Protocol 4MG X3DAYS/ 2MG X4DAYS 90 days Nursing Note Amb to ACS feeling well Medications and supplements reviewed No changes in health, diet, medications, or supplements Denies any unusual signs and symptoms of bruising, bleeding, denies any further hematuria episodes Denies any new Chest pain, SOB, or clotting INR:1.8 below therapeutic range, not sure if he may have missed along the way Nutritional guidance given: no greens today then balance greens and reds in diet Dose: take usual 4mg tonight and increase to 4mg tomorrow then resume usual dosing on Tuesday; 4mg x 3 days and 2mg x 4 days F/U INR: 2 weeks Patient verbalizes understanding of instructions given with accurate read back/ teach back of dosing Anti-Coag Initial Assessment Social Hx Patient Tobacco Use Status: Former Tobacco user Quit Date: 1979 alcohol intake: current Alcohol intake frequency: a few times a week Questionnaires HAS-BLED Does the patient had uncontrolled Hypertension?: No Does the patient have renal disease?: No Does the patient have liver disease?: No Does the patient have a history of stroke?: No Has the patient had major bleeding or predisposition to bleeding?: Yes Does the patient have labile INRs?: No Is the patient over 65 years of age?: Yes Is the patient on medications that gives them a predisposition to bleeding?: Yes Does the patient use alcohol?: No HAS-BLED Score: 3 CHADSVASC Age: 75 or over Gender: Male Does the patient have a history of CHF?: No Does the patient have a history of Hypertension?: Yes Does the patient have a history of Stroke/TIA/Thromboembolism?: No Does the patient have a history of Vascular Disease (prior PR, PAD or aortic plaque)?: Yes Does the patient have a history of Diabetes?: No CHADS VACS Score: 4 Angela Prediction Score Rsk VTE Active Cancer: No Previous VTE, excluding superficial vein thrombosis: No Reduced mobility: No Already known Thrombophilic Condition: Yes With-in last month Trauma and/or Surgery: No Elderly 70 year or older: Yes Heart and/or Respiratory Failure: No Acute Myocardial infarction and/or Ischemic Stroke: No Acute Infection and/or Rheumatologic Disorder: No Obesity (BMI 30 or greater): No Ongoing Hormonal Treatment: No Score: 4 Angela Score less than 4; Low Risk of VTE Angela Score 4 or greater; High Risk of VTE Coding Level of Care Code Est Patient Level 1 Diagnoses Current use of 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 therapy Z79.01 Time Spent (min) 15 Assessment & Plan Assessment & Plan (1) Current use of 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 therapy: Code(s): Z79.01 - [facility] (current) use of 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s Category: Medical
== END 2023-08-05 09:10 | disposition home or self-care (01) ==
LOC: HO.ACS 08:43
PROVIDERS: PCP Nurse Practitioner Family; Visit Provider Internal Medicine
DX: Z79.01 Long term (current) use of 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s (principal)

== ENCOUNTER → 2023-08-05 08:43 | Outpatient (BNVA) | payer MEDICARE, OTHER, SELFPAY | PROVIDERS: PCP Nurse Practitioner Family; Visit Provider Internal Medicine | DX: I48.20 Chronic atrial fibrillation, unspecified (principal); Z79.01 Long term (current) use of 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s; Z51.81 Encounter for therapeutic drug level monitoring | CPT/HCPCS: 85610; 99211 ==

== ENCOUNTER 2023-08-19 08:54 | Outpatient (AMB) | payer MEDICARE, OTHER, SELFPAY ==
[2023-08-19 09:15] LABS: Prothrombin Time Whole Bld POC 28.6 sec (11.1-13.5); ~PT, ~INR - Anti Coag Clinic 2.4 (0.9-1.1)
--- NOTE | 2023-08-19 09:17 | MHC.OFFVISCO ---
Intake Intake Visit Reasons: Anticoagulation Allergies No Known Allergies [No Known Allergies*] Allergy (Verified 08/19/23 09:09) Medication List - Last Reconciled 08/19/23 by Karina Epperson RN atorvastatin 20 mg PO DAILY diltiazem HCl 180 mg PO DAILY triamcinolone acetonide 0.1% 1 appl topical BID triamterene-hydrochlorothiazid 75-50 mg 1 tab PO DAILY warfarin See Protocol 4MG X3DAYS/ 2MG X4DAYS 90 days Nursing Note INR: 2.4 in therapeutic range Medications and supplements reviewed No changes in health, diet, medications, or supplements, Denies any signs and symptoms of bleeding or bruising or clotting. Bleeding, bruising, clotting discussed Nutritional guidance given Dose: 2MG X 4 DAYS/ 4MG MWF F/U INR: 4 WEEKS Patient verbalizes understanding of instructions given Anti-Coag Initial Assessment Social Hx Patient Tobacco Use Status: Former Tobacco user Quit Date: 1979 alcohol intake: current Alcohol intake frequency: a few times a week Coding Level of Care Code Est Patient Level 1 Diagnoses Current use of 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 therapy Z79.01 Assessment & Plan Assessment & Plan (1) Current use of 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 therapy: Code(s): Z79.01 - superintendent container terminal (current) use of 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s Category: Medical
== END 2023-08-19 09:22 | disposition home or self-care (01) ==
LOC: HO.ACS 08:54
PROVIDERS: PCP Nurse Practitioner Family; Visit Provider Internal Medicine
DX: Z79.01 Long term (current) use of 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s (principal)

== ENCOUNTER → 2023-08-19 08:54 | Outpatient (BNVA) | payer MEDICARE, OTHER, SELFPAY | PROVIDERS: PCP Nurse Practitioner Family; Visit Provider Internal Medicine | DX: I48.20 Chronic atrial fibrillation, unspecified (principal); Z79.01 Long term (current) use of 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s; Z51.81 Encounter for therapeutic drug level monitoring | CPT/HCPCS: 85610; 99211 ==

== ENCOUNTER 2023-08-30 09:36 | Outpatient (AMB) | payer MEDICARE, OTHER, SELFPAY ==
--- NOTE | 2023-08-30 09:57 | A.OFFVIS_ITS ---
Intake Vital Signs 08/30/23 09:59 Height 6 ft 3 in Weight 223 lb 8 oz BMI 27.9 BP 110/68 Blood Pressure Location Lt brachial Position Sitting Pulse 88 Pulse Source Pulse Oximeter Pulse Oximetry (%) 96 Oxygen Delivery Method Room Air Intake Visit Reasons: SWV G0439 Allergies No Known Allergies [No Known Allergies*] Allergy (Verified 08/30/23 10:09) HPI SWV G0439 HPI Details Pt is here for an SWV. Denies fever, chills, and dizziness. [place] of care in scan pile. PPP will be scanned in chart and copy will be given to pt. [facility] Medical History Hypertension, essential, benign Hyperlipidemia Atrial fibrillation Osteoarthritis Pacemaker (~2008) Current use of 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 therapy Surgical History History of colonoscopy History of eye surgery History of appendectomy Status post left foot surgery (~02/2020) Amputated toe of left foot History of cardiac pacemaker History of cardiac radiofrequency ablation (RFA) Family History Father No problems noted. Mother No problems noted. Social History Housing: House Alcohol intake: current Alcohol intake frequency: a few times a week Alcohol type: beer Patient Tobacco Use Status: Former Tobacco user Quit Date: 1979 Years Smoked: 15 e-Cigarette/Vaping Use: Never Used service: No Current occupational status: retired Hearing needs: No Vision needs: Yes (Glasses) Questionnaire Medicare Wellness Checkup What is your age?: 80 or older What gender do you identify with?: male During the past 4 weeks, how much have you been bothered by emotional problems such as feeling anxious, depressed, irritable, sad or downhearted, and blue?: not at all During the past 4 weeks, has your physical & emotional health limited your social activities with family, friends, neighbors, or groups?: not at all During the past 4 weeks, how much bodily pain have you generally had?: mild pain During the past 4 weeks, was someone available to help you if you needed & wanted help?: yes, as much as I wanted During the past 4 weeks, what was the hardest physical activity you could do for at least 2 minutes?: moderate Can you get to places out of walking distance without help? (For eg., can you travel alone on buses, taxis or drive your car?): Yes Can you go shopping for groceries or clothes without someone's help?: Yes Can you prepare your own meals?: Yes Can you do your housework without help?: Yes Because of any health problems, do you need the help of another person with your personal care needs such as eating, bathing, dressing or getting around the house?: No Can you handle your own money without help?: Yes During the past 4 weeks, how would you rate your health in general?: good During the past 4 weeks how have things been going for you?: very well; could hardly better Are you having difficulties driving your car?: no Do you always fasten your seat belt when you are in a car?: yes, usually Have you fallen 2 or more times in the past year?: No Are you afraid of falling?: No Are you a smoker?: no During the past 4 weeks, how many drinks of wine, beer, or other alcoholic beverages did you have?: 1 drink or less per week Do you exercise for about 20 minutes 3 or more times a week?: yes, all the time Have you been given information to help with the following?: no: Hazards in your house that might hurt you? and no: Keeping track of your medications? How often do you have trouble taking medicines the way you have been told to take them?: I always take medicine as prescribed How confident are you that you can control & manage most of your health problems?: very confident What is your race?: White Mini Mental State Exam (MMSE) Orientation What is the (year) (season) (date) (day) (month)?: year (2022) Where are we (state) (county) (town or city) (hospital) (floor[place] state [place] Registration Name of 3 unrelated objects clearly and slowly, then ask patient to repeat all 3 of them. (1st repeat determines score. Make sure they can repeat all three): object 1, object 2 and object 3 Attention & Calculation (CHOOSE ONE) Spell WORLD backwards (DLROW): 4 letters Recall Ask patient to repeat the 3 items from question #3.: object 1, object 2 and object 3 Language Show patient a wristwatch & ask what it is. Repeat for pencil.: watch Ask the patient to repeat the phrase 'No ifs, ands, or buts' after you.: correct Ask the patient to 'take a piece of paper with their right hand' 'fold paper in half' 'place paper on floor': take paper in right hand, fold paper in half and place paper on floor Print the sentence 'CLOSE YOUR EYES' on a piece. If patient actually closes eyes then score.: followed written direction Give patient a blank piece of paper & ask to write a sentence. Score if it contains a noun & verb.: sentence contains subject and verb Ask patient to copy figure of intersecting pentagons exactly. Score if all 10 angles & 2 intersects are included.: all 10 angles present & 2 are intersected Score Score: 20 Activity of Daily Living Bathing - sponge bath, tub bath or shower: receives no assistance (gets in/out by self, if usual bathing means Dressing - getting clothes from closets & drawers, including inner/outer garments & fasteners.: gets clothes & gets completely dressed without help Toileting - going to the 'toilet room' for urine/bowel elimination & cleaning self/arranging clothes: goes to toilet room, cleans self, arranges clothes without help Transfer: moves in & out of bed and chair without help (may use support object) Continence: controls urination/bowel movements completely by self Feeding: feeds self without help Total Score: 0 Information obtained from: patient Using telephone: independent Traveling: independent Shopping: independent Preparing meals: independent Housework: independent Taking medicine: independent Managing money: independent PHQ-9 Over the last 2 weeks, how often have you been bothered by any of the following problems? 90813 - PHQ-9 Billing: Patient declined-do not bill Source: Developed by Drs. Alan Kim, Mandi Novak, Brendon Baarjas and colleagues, with an educational antoni from [employer]. CHEN-7 AMB Questionnaire CHEN-7 Date CHEN - 7 assessed: 08/30/23 Feeling nervous, anxious, or on edge: 2 = More than half the days Not being able to stop or control worryin = More than half the days Worrying too much about different things: 2 = More than half the days Trouble relaxin = More than half the days Being so restless that it is hard to sit still: 0 = Not at all Becoming easily annoyed or irritable: 2 = More than half the days Feeling afraid as if something awful might happen: 2 = More than half the days Total CHEN-7 score (0-4 normal; 5-9 mild; 10-14 moderate; 15-21 severe): 12 Source: Developed by Drs. Alan Kim, Mandi Novak, Brendon Barajas and colleagues, with an educational antoni from [employer]. CHEN-7 Assessment Billing CHEN-7 Assessment Tool: CHEN-7 Assessment 29123 Review of Systems Const Reports as per HPI Physical Exam Vital Signs: Last Vital Signs Pulse 88 08/30/23 09:59 BP 110/68 08/30/23 09:59 Pulse Ox 96 08/30/23 09:59 Oxygen Delivery Method Room Air 08/30/23 09:59 BMI result Body Mass Index 27.9 Const General: cooperative Orientation/consciousness: patient oriented x3 Neuro Other: - romberg, can tandem walk, can walk and turn, can rise from sitting to standing, passed whisper test General: patient oriented x3 Psych Appearance: grossly normal Mental Status: mental status grossly normal Speech and movement: Normal speech and movement present Affect: normal affect Attitude: cooperative Thought process: Normal thought process present Thought content: Normal thought content present Insight: Good insight present (Psych) Judgement: Good judgement present (Psych) Assessment & Plan Assessment & Plan (1) Encounter for subsequent annual wellness visit in Medicare patient: Code(s): Z00.00 - Encounter for general adult medical examination without abnormal findings Plan: Reviewed forms with pt Plan The patient agreed to the use of a medical imaging specialist for this encounter. Scribed for DEAN Le by Nirali Momin medical imaging specialist, on 08/30/2023 at 10:40 EST. Coding Level of Care Code Medicare Subsequent (G0439) Diagnoses Encounter for subsequent annual wellness visit in Medicare patient Z00.00 CPT Codes Advance Care Planning - Time spent: 1-15 minutes, on File ([id number]) Additional Codes CHEN-7 Assessment Billing - CHEN-7 Assessment Tool: CHEN-7 Assessment 77564 ([id number]) Advance Care Planning Forms completed: Health Care Proxy (form complete), MOLST (form complete) and Living will (already done, according to pt) Time spent: 1-15 minutes, on File Actual minutes spent: 5
[2023-08-30 09:59] VITALS: BP 110/68; PULSE 88; O2SAT 96; BMI 27.9
== END 2023-08-30 11:40 | disposition home or self-care (01) ==
PROVIDERS: Visit Provider Nurse Practitioner Family
DX: Z00.00 Encounter for general adult medical examination without abnormal findings (principal)
CPT/HCPCS: 1123F; G0439

== ENCOUNTER → 2023-08-30 23:59 | Outpatient (BNV) | payer MEDICARE, OTHER, SELFPAY ==
--- NOTE | 2023-09-05 14:09 | MHC.OFFVIS ---
Intake Intake Visit Reasons: Remote Device Check- [facility] Allergies No Known Allergies [No Known Allergies*] Allergy (Verified 08/30/23 10:09) [facility] Medical History Hypertension, essential, benign Hyperlipidemia Atrial fibrillation Osteoarthritis Pacemaker (~2008) Current use of 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 therapy Surgical History History of colonoscopy History of eye surgery History of appendectomy Status post left foot surgery (~02/2020) Amputated toe of left foot History of cardiac pacemaker History of cardiac radiofrequency ablation (RFA) Family History Father No problems noted. Mother No problems noted. Social History Housing: House Alcohol intake: current Alcohol intake frequency: a few times a week Alcohol type: beer Patient Tobacco Use Status: Former Tobacco user Quit Date: 1979 Smoked: 15 e-Cigarette/Vaping Use: Never Used service: No Current occupational status: retired Hearing needs: No Vision needs: Yes (Glasses) Office Procedures Cardiac Device Check Cardiac Device Check Details: PPM Good battery life. Episodes of atrial fibrillation noted. He has known Afib. [id number] Cardiac Device Interrogation, pacemaker Procedure code (CPT) selection complete Assessment & Plan Assessment & Plan (1) Pacemaker: Onset Date: ~2008 Comment: (Pacemaker SCPP- [facility] - Initial DCPP 2008, replaced/SCPP 2017) Code(s): Z95.0 - Presence of cardiac pacemaker Plan: Orders: Orders AMB Cardiac Device Follow-up 08/30/23 Z95.0 - Presence of cardiac pacemaker Coding Level of Care Code Procedure Only Diagnoses Pacemaker Z95.0 CPT Codes Cardiac Device Check - Cardiac Device 12: [id number]-[id number] Cardiac Device Interrogation, pacemaker ([id number])
== END ==
PROVIDERS: PCP Nurse Practitioner Family; Visit Provider Internal Medicine Cardiovascular Disease
DX: I48.91 Unspecified atrial fibrillation (principal); Z95.0 Presence of cardiac pacemaker
CPT/HCPCS: 93294

== ENCOUNTER 2023-09-19 08:47 | Outpatient (AMB) | payer MEDICARE, OTHER, SELFPAY ==
--- NOTE | 2023-09-19 09:11 | MHC.OFFVISCO ---
Intake Intake Visit Reasons: Anticoagulation Allergies No Known Allergies [No Known Allergies*] Allergy (Verified 09/19/23 09:07) Medication List - Last Reconciled 09/19/23 by Karina Epperson RN atorvastatin 20 mg PO DAILY diltiazem HCl 180 mg PO DAILY triamcinolone acetonide 0.1% 1 appl topical BID triamterene-hydrochlorothiazid 75-50 mg 1 tab PO DAILY warfarin See Protocol 4MG X3DAYS/ 2MG X4DAYS 90 days Nursing Note INR: 2.0 in therapeutic range Medications and supplements reviewed No changes in health, diet, medications, or supplements, Denies any signs and symptoms of bleeding or bruising or clotting. Bleeding, bruising, clotting discussed Nutritional guidance given Dose: 2MG X 4 DAYS/ 4MG X3 DAYS F/U INR: 4 WEEKS Patient verbalizes understanding of instructions given Anti-Coag Initial Assessment Social Hx Patient Tobacco Use Status: Former Tobacco user Quit Date: 1979 alcohol intake: current Alcohol intake frequency: a few times a week Coding Level of Care Code Est Patient Level 1 Diagnoses Current use of 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 therapy Z79.01 Results AMB INR Fingerstick AMB INR Fingerstick 2.0 Last Edit by Karina Epperson RN on 09/19/23 09:16 MANUAL ENTRY FAILED INTERFACING ONGOING Assessment & Plan Assessment & Plan (1) Current use of 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 therapy: Code(s): Z79.01 - FPC (current) use of 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s Category: Medical
[2023-09-19 09:38] LABS: Prothrombin Time Whole Bld POC 23.4 sec (11.1-13.5)
== END 2023-09-19 09:20 | disposition home or self-care (01) ==
LOC: HO.ACS 08:47
PROVIDERS: PCP Nurse Practitioner Family; Visit Provider Internal Medicine
DX: Z79.01 Long term (current) use of 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s (principal)

== ENCOUNTER → 2023-09-19 08:47 | Outpatient (BNVA) | payer MEDICARE, OTHER, SELFPAY | PROVIDERS: PCP Nurse Practitioner Family; Visit Provider Internal Medicine | DX: I48.20 Chronic atrial fibrillation, unspecified (principal); Z79.01 Long term (current) use of 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s; Z51.81 Encounter for therapeutic drug level monitoring | CPT/HCPCS: 85610; 99211 ==

== ENCOUNTER 2023-09-22 12:43 | Outpatient (AMB) | payer MEDICARE, OTHER, SELFPAY ==
--- NOTE | 2023-09-22 13:34 | A.OFFVIS_ITS ---
Intake Intake Visit Reasons: 2m follow up Intake Note: Patient presents today for a 2 months PVR follow-up: Meds: None Allergies to Antibiotic: No Known Allergies Blood Thinner: Warfarin Post Void Residual: 117 mL Curator Of Education Required: No Accompanied by: Daughter Allergies No Known Allergies [No Known Allergies*] Allergy (Verified 10/31/23 09:11) HPI HPI Comments History of Present Illness Details 09/22/23- Zander is here for Follow up, he is being followed for BPH, incomplete bladder emptying and hematuria, He has a PMH of atrial fibrillation, hyperlipidemia, hypertension, osteoarthritis, and has a pacemaker. He had office cysto on 07/20/23, no suspicious bladder lesions. Bladder scan PVR 117 mL. Plan proscar 5 mg daily ordered. Review of chart: 07/20/23-- CYSTOSCOPY - mild Trabeculation, bruising noted to bladder mucosa, multifocal areas, may represent changes from prior catheter, prostatic urethra non obstructive, bulbous urethra WNL, no suspicious bladder lesions visualized. 07/14/23- seen by JATINDER Feldmaner is a pleasant 87-year-old male patient of Dr. Vizcarra who was accompanied by his daughter at today's office visit. He has a PMH of atrial fibrillation, hyperlipidemia, hypertension, osteoarthritis, and has a pacemaker. He presents to the office today for follow-up of his gross hematuria. In discussion with the patient today reports having seeked emergency room care approximately 3 weeks ago for gross hematuria at which time a CT was ordered and performed. These results reviewed with the patient his daughter today. 2 mm nonobstructing left renal calculus. No hydronephrosis. Irregular shaped hyperdense focus which appears to be within the lumen of the bladder which measures approximately 2.1 x 1.0 x 2.2 cm. This is a nonspecific finding. This may represent a blood clot or bladder mass is also within the differential. Of note, patient was seen in the office approximately 6 months ago for an elevated PSA at which time recommendations were made for redraw of PSA as well as retroperitoneal ultrasound however it does not appear patient to have completed recommendations. Discussed and stressed the importance of following up for continuity of care as well as overall health and well-being. 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 He also reports a previous smoking history however quit over 40 years ago. He reports having smoked for approximately 15-20 years no more than half a pack per day. Imaging: CTAP 1. 2 mm nonobstructing left renal calcu beck. No hydronephrosis. 2. Irregularly-shaped hyperdense focus which appears to be within the lumen of the bladder which measures approximately 2.1 x 1.0 x 2.2 cm. PSA results--- 06/28--1.3 04/29--3.2 10/28--5.7 Plan 09/22/23--proscar 5 mg daily, FU in 3 months [facility] Medical History Hypertension, essential, benign Hyperlipidemia Atrial fibrillation Osteoarthritis Pacemaker (~2008) Current use of 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 therapy Surgical History History of colonoscopy History of eye surgery History of appendectomy Status post left foot surgery (~02/2020) Amputated toe of left foot History of cardiac pacemaker History of cardiac radiofrequency ablation (RFA) Family History Father No problems noted. Mother No problems noted. Social History Housing: House Alcohol intake: current Alcohol intake frequency: a few times a week Alcohol type: beer Patient Tobacco Use Status: Former Tobacco user Quit Date: 1979 Years Smoked: 15 e-Cigarette/Vaping Use: Never Used service: No Current occupational status: retired Hearing needs: No Vision needs: Yes (Glasses) Review of Systems Const All systems reviewed & are unremarkable except as noted in HPI and below Reports no additional complaints Eyes Reports no additional complaints ENT Reports no additional complaints Card Reports no additional complaints Resp Reports no additional complaints GI Reports no additional complaints Reports as per HPI Musc Reports no additional complaints Skin/Breast Reports system reviewed and no additional complaints, except as documented Neuro Reports no additional complaints Psych Reports no additional complaints Endo Reports no additional complaints Ike/Lymph Reports no additional complaints Aller/Immun Reports no additional complaints Results AMB Urinalysis, Automated UA Leukoctes 0 Paulino/uL Last Edit by Stella Carmona Florencio on 09/22/23 14:04 UA Nitrite Negative Last Edit by Stella Carmona [facility] on 09/22/23 14:04 UA Urobilinogen 0.2 mg/dL Last Edit by Stella Carmona [facility] on 09/22/23 14:0 4 UA Protein 15 mg/dL Last Edit by Stella Carmona [facility] on 09/22/23 14:04 UA pH 5.5 Last Edit by Stella Carmona [facility] on 09/22/23 14:04 UA Blood 25 Robert/uL Last Edit by Stella Carmona [facility] on 09/22/23 14:04 UA Specific [place] 1.030 Last Edit by Stella Carmona [facility] on 09/22/23 14: 04 UA Ketone Negative Last Edit by Stella Carmona [facility] on 09/22/23 14:04 UA Bilirubin 0 mg/dL Last Edit by Stella Carmona [facility] on 09/22/23 14:04 UA Glucose 0 mg/dL Last Edit by Stella Carmona [facility] on 09/22/23 14:04 Results Reviewed Results Reviewed: Laboratory Last Values Urine pH (Auto) 5.5 09/22/23 14:01 Specific [place] (Auto) 1.030 09/22/23 14:01 Urine Protein (Auto) 15 mg/dL 09/22/23 14:01 Glucose (UA)(Auto) 0 mg/dL 09/22/23 14:01 Urine Ketones (Auto) Negative 09/22/23 14:01 Urine Blood (Auto) 25 Robert/uL 09/22/23 14:01 Urine Nitrite (Auto) Negative 09/22/23 14:01 Urine Bilirubin (Auto) 0 mg/dL 09/22/23 14:01 Urine Urobilinogen (Auto) 0.2 mg/dL 09/22/23 14:01 Leukocyte Esterase (Auto) 0 Paulino/uL 09/22/23 14:01 Assessment & Plan Assessment & Plan (1) Enlarged prostate: Code(s): N40.0 - Benign prostatic hyperplasia without lower urinary tract symptoms (2) Hematuria: Code(s): R31.9 - Hematuria, unspecified Plan proscar 5 mg daily, FU in 3 months Orders: Orders AMB Urinalysis Automated 09/22/23 Z13.9 - Encounter for screening, unspecified AMB Post Void Residual by ultrasound 09/22/23 N39.8 - Other specified disorders of urinary system Medications: New finasteride (Proscar) 5 mg PO DAILY 90 tabs 3RF 90 days C61 - Malignant neoplasm of prostate Patient Instructions: The patient had an opportunity to ask questions regarding treatment plan. All questions were answered. Imaging, Laboratory studies and physical exam results were discussed and reviewed in detail. No major barriers to understanding were identified. The patient expressed understanding and agreement with the above treatment plan. The patient is aware they should contact our office by phone for worsening of their current condition or the appearance of new symptoms. Compliance is encouraged with any medications and followup testing that is ordered. It is a privilege to be allowed the opportunity to participate in the urologic care of your patient. If you have any questions or concerns regarding treatment for the above conditions please do not hesitate to contact me. The office telephone contact is [phone]. This note is constructed in part using voice recognition software. While every effort has been made to ensure accuracy flue cleaner errors may have been included. Yours sincerely, Chetna Armstrong MD Coding Level of Care Code Est Pt Level 4 (02622) Diagnoses Enlarged prostate N40.0 Hematuria R31.9
== END 2023-09-22 14:36 | disposition home or self-care (01) ==
LOC: HO.HUSH 12:43
PROVIDERS: PCP Nurse Practitioner Family; Visit Provider Urology
DX: N40.0 Benign prostatic hyperplasia without lower urinary tract symptoms (principal); R31.9 Hematuria, unspecified
CPT/HCPCS: 99214

== ENCOUNTER → 2023-09-22 12:43 | Outpatient (BNVA) | payer MEDICARE, OTHER, SELFPAY | PROVIDERS: PCP Nurse Practitioner Family; Visit Provider Urology | DX: N40.0 Benign prostatic hyperplasia without lower urinary tract symptoms (principal); R31.9 Hematuria, unspecified | CPT/HCPCS: 81003; 99212 ==

== ENCOUNTER 2023-10-17 09:02 | Outpatient (AMB) | payer MEDICARE, OTHER, SELFPAY ==
[2023-10-17 09:12] LABS: Prothrombin Time Whole Bld POC 44.5 sec (11.1-13.5); ~PT, ~INR - Anti Coag Clinic 3.7 (0.9-1.1)
--- NOTE | 2023-10-17 09:19 | MHC.OFFVISCO ---
Intake Intake Visit Reasons: Anticoagulation Allergies No Known Allergies [No Known Allergies*] Allergy (Verified 10/17/23 09:02) Medication List - Last Reconciled 10/17/23 by Lindsay Irwin, MARY atorvastatin 20 mg PO DAILY diltiazem HCl 180 mg PO DAILY finasteride (Proscar) 5 mg PO DAILY 90 days magnesium 200 mg PO DAILY triamcinolone acetonide 0.1% 1 appl topical BID triamterene-hydrochlorothiazid 75-50 mg 1 tab PO DAILY warfarin See Protocol 4MG X3DAYS/ 2MG X4DAYS 90 days Nursing Note INR 3.7?out of therapeutic rangeof 2-3 Medications and supplements reviewed started on magnesium, no interaction with warfarin Patient status: pt states he feels well Planning to have surgery for hammer toes, no date set Pt seeing early childhood teacher today pre surgery Medications or supplements: same with above mentioned Diet: has had more reds in diet lately Denies any signs and symptoms of bleeding or clotting or unusual bruising Bleeding, bruising, clotting discussed Nutritional guidance given: to have a serving of greens today then to balance greens and reds Dose: decrease todays dose to 2mg(4mg) then cont same dose of 4 mg X3 days and 2 mg X 4 days F/U INR Date : 2 weeks?? Patient verbalizing understanding of instructions given. Anti-Coag Initial Assessment Social Hx Patient Tobacco Use Status: Former Tobacco user Quit Date: 1979 alcohol intake: current Alcohol intake frequency: a few times a week Coding Level of Care Code Est Patient Level 1 Diagnoses Current use of 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 therapy Z79.01 Assessment & Plan Assessment & Plan (1) Current use of 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 therapy: Code(s): Z79.01 - oil heaterman (current) use of 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s Category: Medical
== END 2023-10-17 09:40 | disposition home or self-care (01) ==
LOC: HO.ACS 09:02
PROVIDERS: PCP Nurse Practitioner Family; Visit Provider Internal Medicine
DX: Z79.01 Long term (current) use of 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s (principal)

== ENCOUNTER → 2023-10-17 09:02 | Outpatient (BNVA) | payer MEDICARE, OTHER, SELFPAY | PROVIDERS: PCP Nurse Practitioner Family; Visit Provider Internal Medicine | DX: I48.20 Chronic atrial fibrillation, unspecified (principal); Z79.01 Long term (current) use of 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s; Z51.81 Encounter for therapeutic drug level monitoring | CPT/HCPCS: 85610; 99211 ==

== ENCOUNTER 2023-10-20 10:04 | Outpatient (AMB) | payer MEDICARE, OTHER, SELFPAY ==
--- NOTE | 2023-10-20 10:11 | A.OFFPC_ITS ---
Vital Signs 10/20/23 10:18 Height 6 ft 3 in Weight 229 lb BMI 28.6 BP 122/66 Blood Pressure Location Lt brachial Position Sitting Pulse 74 Pulse Source Pulse Oximeter Pulse Oximetry (%) 97 Oxygen Delivery Method Room Air Intake Visit Reasons: [facility] ~ Toe Amputation Intake Note: pt is here for toe amputation, pre op Medical Imaging Specialist Required: No Allergies No Known Allergies [No Known Allergies*] Allergy (Verified 10/20/23 11:57) Medication List - Last Reconciled 10/20/23 by DEAN Gleason atorvastatin 20 mg PO DAILY diltiazem HCl 180 mg PO DAILY finasteride (Proscar) 5 mg PO DAILY 90 days magnesium 200 mg PO DAILY triamcinolone acetonide 0.1% 1 appl topical BID triamterene-hydrochlorothiazid 75-50 mg 1 tab PO DAILY warfarin See Protocol 4MG X3DAYS/ 2MG X4DAYS 90 days Tobacco use date assessed: 10/20/23 Fall risk assessment: No Falls in past year Last assessed Fall Risk: 10/20/23 Dental Screening Dental Screen Date: 10/20/23 Did you have a dental visit in the last 12 months?: No Did you have a dental problem in the last 6 months where you did not have access to dental care?: No Was dental information given to patient?: Patient declined HPI [facility] ~ Toe Amputation HPI Details Pt is here for a pre-op evaluation, missing paperwork. He is scheduled for amputation of the tips of right toes 2 and 3 on 11/10. EKG done in office today. Will order labs. Pt needs to be cleared by cardiology before any surgical procedure. Will message cardiology for an appointment. [facility] Medical History Hypertension, essential, benign Hyperlipidemia Atrial fibrillation Osteoarthritis Pacemaker (~2008) Current use of 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 therapy Surgical History History of colonoscopy History of eye surgery History of appendectomy Status post left foot surgery (~02/2020) Amputated toe of left foot History of cardiac pacemaker History of cardiac radiofrequency ablation (RFA) Family History Father No problems noted. Mother No problems noted. Social History Housing: House Alcohol intake: current Alcohol intake frequency: a few times a week Alcohol type: beer Patient Tobacco Use Status: Former Tobacco user Quit Date: 1979 Smoked: 15 e-Cigarette/Vaping Use: Never Used service: No Current occupational status: retired Hearing needs: No Vision needs: Yes (Glasses) Questionnaire PHQ-9 Over the last 2 weeks, how often have you been bothered by any of the following problems? 69470 - PHQ-9 Billing: Patient declined-do not bill Source: Developed by Drs. Alan Kim, Brendon Beltran and colleagues, with an educational antoni from [employer]. Thrive Questionnaire Date Thrive assessed: 04/22/22 AUDIT C Alcohol Use Questionnaire (AUDIT-C) 1. How often do you have a drink containing alcohol?: Never 3. How often do you have six or more drinks on one occasion?: Never Total Score: 0 Score Reviewed/Action Taken: Yes CHEN-7 AMB Questionnaire CHEN-7 Date CHEN - 7 assessed: 10/20/23 Feeling nervous, anxious, or on edge: 2 = More than half the days Not being able to stop or control worryin = More than half the days Worrying too much about different things: 2 = More than half the days Trouble relaxin = More than half the days Being so restless that it is hard to sit still: 0 = Not at all Becoming easily annoyed or irritable: 2 = More than half the days Feeling afraid as if something awful might happen: 2 = More than half the days Total CHEN-7 score (0-4 normal; 5-9 mild; 10-14 moderate; 15-21 severe): 12 Source: Developed by Drs. Alan Kim, Mandi Noavk, Brendon Barajas and colleagues, with an educational antoni from [employer]. CHEN-7 Assessment Billing CHEN-7 Assessment Tool: CHEN-7 Assessment 19555 Review of Systems Const Denies chills and Denies fever(s) Eyes Denies blurry vision ENT Denies vertigo, Denies dizziness and Denies sore throat Card Denies chest pain at rest, Denies chest pain with activity, Denies diaphoresis, Denies dyspnea and Denies dyspnea on exertion Resp Denies cough, Denies dyspnea, Denies dyspnea on exertion and Denies wheezing GI Denies abdominal pain, Denies melena, Denies hematochezia, Denies constipation, Denies diarrhea and Denies loose stools Denies hematuria Musc Denies numbness and Denies tingling Skin/Breast Denies lesions Neuro Denies vertigo, Denies dizziness, Denies numbness and Denies tingling Psych Denies anxiety, Denies depression, Denies homicidal ideation, Denies suicidal ideation and Denies other (substance abuse) Aller/Immun Denies wheezing Physical exam (Primary Care) Vital Signs: Last Vital Signs Pulse 74 10/20/23 10:18 BP 122/66 10/20/23 10:18 Pulse Ox 97 10/20/23 10:18 Oxygen Delivery Method Room Air 10/20/23 10:18 BMI result Body Mass Index 28.6 Tobacco/Smoking Status: Tobacco use Status Tobacco use date assessed 10/20/23 10/20/23 10:28 Patient Tobacco Use Status Former Tobacco user 10/20/23 10:15 e-Cigarette/Vaping Use Never Used 10/20/23 10:15 Thrive Assessment: Date of Thrive Assessment Date Thrive assessed 04/22/22 10/20/23 10:15 Const General: cooperative Nutritional Appearance: well nourished Orientation/consciousness: patient oriented x3 Neck Neck: Yes no lymphadenopathy Resp Effort & Inspection: normal respiratory effort Auscultation: clear to auscultation bilaterally Cardio Rate: regular rate Rhythm: abnormal rhythm irregularly irregular Heart sounds: S1 normal heart sound present, S2 normal heart sound present and no murmurs Neuro General: patient oriented x3 Extrem Other: large callus/eschar to tip of right 2nd toe, small callus formation to tip of 3rd toe Psych Appearance: grossly normal Mental Status: mental status grossly normal Speech and movement: Normal speech and movement present Affect: normal affect Attitude: cooperative Thought process: Normal thought process present Thought content: Normal thought content present Insight: Good insight present (Psych) Judgement: Good judgement present (Psych) Assessment and Plan Assessment & Plan (1) Pre-op evaluation: Code(s): Z01.818 - Encounter for other preprocedural examination Plan: needs to get labs drawn, needs clearance from cardiology. Plan The patient agreed to the use of a medical front desk specialist for this encounter. Scribed fo hugh Vizcarra, DIRECTOR OF EMPLOYER SERVICES- by Nirali Momin medical front desk specialist, on 10/20/2023 at 10:40 EST. Orders: Orders Complete Blood Count Auto Diff Today Z01.818 - Encounter for other preprocedural examination Comprehensive [place]. Panel Fast Today Z01.818 - Encounter for other preprocedural examination Hemoglobin A1c Today Z01.818 - Encounter for other preprocedural examination AMB EKG-In Office Today Z01.818 - Encounter for other preprocedural examination Coding Level of Care Code Est Pt Prev Care >65y(76129) Diagnoses Pre-op evaluation Z01.818 Additional Codes CHEN-7 Assessment Billing - CHEN-7 Assessment Tool: CHEN-7 Assessment 73016 ([id number])
[2023-10-20 10:18] VITALS: BP 122/66; PULSE 74; O2SAT 97; BMI 28.6
== END 2023-10-20 15:13 | disposition home or self-care (01) ==
PROVIDERS: PCP Nurse Practitioner Family; Visit Provider Nurse Practitioner Family
DX: Z01.818 Encounter for other preprocedural examination (principal)
CPT/HCPCS: 93000; 99213

== ENCOUNTER 2023-10-20 11:37 | Outpatient (REF) | payer MEDICARE, OTHER, SELFPAY ==
[2023-10-20 13:15] LABS: MANUAL DIFF FLAG NO
[2023-10-20 13:37] LABS: Basophils Percent Auto 0.4 % (0-2); Eosinophils Absolute Auto 0.1 X10*3/uL (0.0-0.4); Eosinophils Percent Auto 1.3 % (0-4); Hematocrit 41.4 % (42.0-52.0); Hemoglobin 13.6 g/dl (14.0-18.0); Imm Gran Abs Auto 0.03 X10*3/uL (0.00-0.03); Imm Gran Pct Auto 0.4 % (0.0-0.4); Lymphocytes Absolute Auto 2.6 X10*3/uL (1.2-4.9); Mean Corpuscular HGB Conc 32.9 g/dl (31.0-36.0); Mean Corpuscular Hemoglobin 29.1 pg (27.0-33.0); Mean Corpuscular Volume 88.5 fL (80.0-98.0); Monocytes Absolute Auto 0.6 X10*3/uL (0.1-1.2); Monocytes Percent Auto 8.3 % (2-11); Neutrophils Absolute Auto 4.2 x10*3/uL (2.0-8.3); Neutrophils Percent Auto 55.6 % (45-73); Platelet Count 235 X10*3/uL (160-400); Red Blood Count 4.68 X10*6/uL (4.60-5.80); Red Cell Distribution Width 13.9 % (11.0-16.0); White Blood Count 7.6 X10*3/uL (4.8-10.8)
[2023-10-20 13:42] LABS: Estimated Average Glucose 117 mg/dL; Hemoglobin A1c % 5.7 % (<6.0)
[2023-10-20 13:53] LABS: Alanine Aminotransferase 23 U/L (0-40); Alkaline Phosphatase 42 U/L (39-117); Anion Gap 13 (12-20); Aspartate Amino Transferase 27 U/L (5-37); Bilirubin Total 0.6 mg/dL (0.0-1.0); Blood Urea Nitrogen 13 mg/dL (9-16); Calcium 9.5 mg/dL (8.4-10.2); Carbon Dioxide 31 mmol/L (22-29); Chloride 98 mmol/L (96-108); Estimated Glomerular Filt Rate > 60; Glucose Fasting 87 mg/dL (60-99); Potassium 3.8 mmol/L (3.3-5.1); Sodium 138 mmol/L (135-145); Total Protein 7.6 g/dL (6.5-8.0)
== END 2023-10-20 11:38 | disposition home or self-care (01) ==
LOC: HO.HMGCLDS 11:37
PROVIDERS: PCP Nurse Practitioner Family; Visit Provider Nurse Practitioner Family
DX: Z01.818 Encounter for other preprocedural examination (principal)
CPT/HCPCS: 36415; 80053; 83036; 85025

== ENCOUNTER 2023-10-25 13:46 | Outpatient (AMB) | payer MEDICARE, OTHER, SELFPAY ==
[2023-10-25 13:53] VITALS: BP 130/68; PULSE 78; BMI 28.9
--- NOTE | 2023-10-25 13:53 | MHC.OFFVIS ---
Intake Vital Signs 10/25/23 13:53 Height 6 ft 3 in Weight 231 lb 7.766 oz BMI 28.9 BP 130/68 Blood Pressure Location Lt brachial Position Sitting Pulse 78 Intake Visit Reasons: Pre-op clearance foot surgery on 11/10 Intake Note: PT feels good PT is here for clearance Allergies No Known Allergies [No Known Allergies*] Allergy (Verified 10/25/23 14:21) Medication List - Last Reconciled 10/25/23 by Valeria Hancock NP atorvastatin 20 mg PO DAILY diltiazem HCl 180 mg PO DAILY finasteride (Proscar) 5 mg PO DAILY 90 days magnesium 200 mg PO DAILY triamterene-hydrochlorothiazid 75-50 mg 1 tab PO DAILY warfarin See Protocol 4MG X3DAYS/ 2MG X4DAYS 90 days HPI HPI Comments History of Present Illness Details 88-year-old male presents today for a pre-operative clearnace for toe amputation related to hammertoes. Patient has a history of atrial fibrillation. pacemaker, HTN. and hyperlipidemia. He reports he has been doing well since his last appointment. He denies chest pains, shortness of breath, or dizziness. He did have an episode of gross hematuria back in June and has resolved and he is seeing Urology regarding that. He reports he has never felt his atrial fibrillation. He takes care of his . [facility] Medical History Hypertension, essential, benign Hyperlipidemia Atrial fibrillation Osteoarthritis Pacemaker (~2008) Current use of 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 therapy Surgical History History of colonoscopy History of eye surgery History of appendectomy Status post left foot surgery (~02/2020) Amputated toe of left foot History of cardiac pacemaker History of cardiac radiofrequency ablation (RFA) Family History Father No problems noted. Mother No problems noted. Social History Housing: House Alcohol intake: current Alcohol intake frequency: a few times a week Alcohol type: beer Patient Tobacco Use Status: Former Tobacco user Quit Date: 1979 Years Smoked: 15 e-Cigarette/Vaping Use: Never Used service: No Current occupational status: retired Hearing needs: No Vision needs: Yes (Glasses) Review of Systems Const Denies weakness ENT Denies dizziness Card Denies chest pain, Denies chest pain with activity, Denies syncope, Denies rapid heart rate, Denies pedal edema, Denies edema, Denies leg edema, Denies lightheadedness, Denies palpitations, Denies dyspnea, Denies dyspnea on exertion and Denies orthopnea Resp Denies cough, Denies dyspnea and Denies dyspnea on exertion GI Denies hematochezia and Denies change in stool character Musc Denies abnormal gait, Denies muscle cramps, Denies muscle weakness, Denies numbness, Denies radiating pain into limb and Denies tingling Neuro Denies abnormal gait, Denies dizziness, Denies syncope, Denies numbness, Denies tingling and Denies weakness Endo Denies palpitations Physical Exam Vital Signs: Last Vital Signs Pulse 78 10/25/23 13:53 BP 130/68 10/25/23 13:53 BMI result Body Mass Index 28.9 Const General: healthy appearing and no acute distress Orientation/consciousness: patient oriented x3 HEENT Head: Yes normal to inspection Eyes General: appearance normal, both eyes and all related structures Neck Neck: Yes normal visual inspection Chest Chest palpation & inspection: normal inspection of the chest Resp Effort & Inspection: normal respiratory effort Auscultation: clear to auscultation bilaterally Cardio Jugular venous distension: no JVD Palpation: normal PMI Rate: regular rate Rhythm: regular rhythm Heart sounds: S1 normal heart sound present, S2 normal heart sound present, no click, no gallops, no murmurs and no rubs GI Inspection: Yes normal to inspection Palpation (GI): Soft to palpation Skin General skin exam: no rashes or lesions noted Neuro General: patient oriented x3 Extrem General: Yes normal to inspection Psych Appearance: grossly normal Assessment & Plan Assessment & Plan (1) Pre-op evaluation: Code(s): Z01.818 - Encounter for other preprocedural examination Plan: EKG on 10.20.23 Afib with PVCs, Rate 78 bpm. No siginificant changes from prior. Last echocardiogram 2020 showed normal LV systolic function. Mild to moderate dilated left atrium. Mild aortic regurgitation. Mild mitral reguritiation. Normal RV pericardial effusion. Stress test 08/2022 showed normal myocardial perfusion. Will repeat both due to medical history of chest pains, atrial fibrillation, HTN, PAD, and hyperlipidemia. (2) Atrial fibrillation: Code(s): I48.91 - Unspecified atrial fibrillation Plan: Chronic atrial fibrillation. On diltiazem and warfarin. (3) Hypertension, essential, benign: Code(s): I10 - Essential (primary) hypertension Plan: Blood pressure within limits. On triamterene-hydrochlorothiazide. Continue Orders: Orders CA echo transthoracic complete Today I10 - Essential (primary) hypertension, I48.91 - Unspecified atrial fibrillation CA lexiscan stress w bran Today I48.91 - Unspecified atrial fibrillation, Z01.818 - Encounter for other preprocedural examination NM cardiolite stress test Today I48.91 - Unspecified atrial fibrillation, Z01.818 - Encounter for other preprocedural examination Coding Level of Care Code Est Pt Level 3 (99955) Diagnoses Pre-op evaluation Z01.818 Atrial fibrillation I48.91 Hypertension, essential, benign I10
== END 2023-10-25 14:46 | disposition home or self-care (01) ==
PROVIDERS: PCP Nurse Practitioner Family; Visit Provider Nurse Practitioner
DX: Z01.818 Encounter for other preprocedural examination (principal); I48.91 Unspecified atrial fibrillation; I10 Essential (primary) hypertension
CPT/HCPCS: 99213

== ENCOUNTER → 2023-10-25 13:46 | Outpatient (BNVA) | payer MEDICARE, OTHER, SELFPAY | PROVIDERS: PCP Nurse Practitioner Family; Visit Provider Nurse Practitioner | DX: Z01.818 Encounter for other preprocedural examination (principal); I10 Essential (primary) hypertension; I48.91 Unspecified atrial fibrillation | CPT/HCPCS: 99212 ==

== ENCOUNTER 2023-10-31 08:57 | Outpatient (AMB) | payer MEDICARE, OTHER, SELFPAY ==
[2023-10-31 09:26] LABS: Prothrombin Time Whole Bld POC 27.5 sec (11.1-13.5); ~PT, ~INR - Anti Coag Clinic 2.3 (0.9-1.1)
--- NOTE | 2023-10-31 09:45 | MHC.OFFVISCO ---
Intake Intake Visit Reasons: Anticoagulation Allergies No Known Allergies [No Known Allergies*] Allergy (Verified 10/31/23 09:11) Medication List - Last Reconciled 10/31/23 by Lindsay Tabor, RN atorvastatin 20 mg PO DAILY diltiazem HCl 180 mg PO DAILY finasteride (Proscar) 5 mg PO DAILY 90 days magnesium 200 mg PO DAILY triamterene-hydrochlorothiazid 75-50 mg 1 tab PO DAILY warfarin See Protocol 4MG X3DAYS/ 2MG X4DAYS 90 days Nursing Note Amb to [facility] feeling well, sts he is having toe surgery November 10, when questioned regarding plan for warfarin hold, sts I don't know but last time it was a 3 day hold review of available provider notes and unable to find any plan for warfarin hold and restart calls to [facility] nurse line and Dr Mccann box office clerk, messages [facility] out of office, message left and then Dr Smith is listed under [facility] vs [facility] compose note to Dr Mccann and Medications and supplements reviewed No changes in health, diet, medications, or supplements Denies any unusual signs and symptoms of bruising, bleeding Denies any new Chest pain, SOB, or clotting INR: 2.3 in therapeutic range Nutritional guidance given: balance greens and reds in diet Dose: continue usual dosing; 4mg x 3 days and 2mg x 4 days until hold for surgery (awaiting instructions) pt sts he will be at the hospital tomorrow and he will check in with us F/U INR: tomorrow for warfarin instructions and then booked out 3 weeks as ? pts ability to make appointment- sts last time he could not walk for 2 weeks Patient verbalizes understanding of instructions given with accurate read back/ teach back of dosing AWAIT RETURN CALLS FROM PCP REGARDING WARFARIN HOLD AND MANAGEMENT PRE AND POST PROCEDURE Anti-Coag Initial Assessment Social Hx Patient Tobacco Use Status: Former Tobacco user Quit Date: 1979 alcohol intake: current Alcohol intake frequency: a few times a week Coding Level of Care Code Est Patient Level 2 Diagnoses Current use of 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 therapy Z79.01 Time Spent (min) 30 Assessment & Plan Assessment & Plan (1) Current use of 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 therapy: Code(s): Z79.01 - group home (current) use of 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s Category: Medical
== END 2023-10-31 14:23 | disposition home or self-care (01) ==
LOC: HO.ACS 08:57
PROVIDERS: PCP Nurse Practitioner Family; Visit Provider Internal Medicine
DX: Z79.01 Long term (current) use of 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s (principal)

== ENCOUNTER → 2023-10-31 08:57 | Outpatient (BNVA) | payer MEDICARE, OTHER, SELFPAY | PROVIDERS: PCP Nurse Practitioner Family; Visit Provider Internal Medicine | DX: I48.0 Paroxysmal atrial fibrillation (principal); Z79.01 Long term (current) use of 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s; Z51.81 Encounter for therapeutic drug level monitoring | CPT/HCPCS: 85610; 99212 ==

== ENCOUNTER → 2023-11-01 07:25 | Outpatient (REF) | payer MEDICARE, OTHER, SELFPAY ==
--- NOTE | ~2023-11-01 | NM_ITS ---
Lexiscan Myocardial perfusion study Indication: Preoperative evaluation, assess for ischemia Technique: The patient was brought in for a Lexiscan perfusion study on 11/01/2023 and was injected 0.4 mg of Lexiscan intravenously. Within a minute of this injection 30 mCi of sestamibi was given intravenously. Images were obtained using the SPECT gamma camera interlaced with the gating device. Images were obtained in supine position. Resting perfusion study was performed on 11/02/2023. Patient was administered 30 mCi of sestamibi intravenously at rest. Images were then obtained in supine position. Images were processed with the software and compared side to side in short axis, horizontal long axis and vertical long axis views. Total DLP 208mGy-cm. Findings: Raw acquisition reviewed. The stress perfusion study showed diminished tracer uptake in the lateral/inferolateral wall towards the distal aspect. There is improvement with CT attenuation correction suggesting possible components of soft tissue attenuation artifact.. The gated study shows normal LV systolic function with calculated LVEF of 60%. LV cavity is normal in size. The gated study shows normal wall thickening and contraction of segments. Resting study shows no significant perfusion defects. Gating at rest reveals normal wall motion with ejection fraction at 63%.. The findings are consistent with reversible perfusion defect in the distal part of lateral/inferolateral wall with some improvement during CT attenuation correction. NM/NM cardiolite stress test Impression: 1. Myocardial perfusion imaging study shows possible ischemia in the distal part of lateral/inferolateral wall. 2. Gated LVEF is 60% during stress and 63% during rest. 3. Transient ischemic dilatation not present. EKG component of the test reported separately.
--- NOTE | 2023-11-01 07:40 | CA_ITS ---
Acquisition Time: 2023-11-01 07:54:24 Total Exercise Time: 00:02:00 Test Indications: AFIB, PREOP Medications: SEE H Protocol: LEXISCAN Max HR: 122 BPM 92% of Pred: 132 BPM Max BP: 118/068 mmHG Max Work Load: 1.0 METS Pharmacological stress test with Lexiscan injection while sitting without anginal symptoms, with isolated PVCs and ventricular cuplet, with normotensive response to injection, with nondiagnoisitic EKGs. Aminophylline 75mg IVP given to reverse Lexiscan,. Nuclear images pending. Test reviewed with Dr Cohen, Referred By: Valeria Hancock Overread By: Valeria Hancock
== END ==
LOC: HO.CARD 07:25
PROVIDERS: PCP Nurse Practitioner Family; Visit Provider Nurse Practitioner
DX: Z01.818 Encounter for other preprocedural examination (principal); I48.91 Unspecified atrial fibrillation
CPT/HCPCS: 78452; 93017; A9500; J0280; J2785

== ENCOUNTER → 2023-11-01 07:40 | Outpatient (BNV) | payer MEDICARE, OTHER, SELFPAY | PROVIDERS: PCP Nurse Practitioner Family; Visit Provider Nurse Practitioner | DX: Z01.810 Encounter for preprocedural cardiovascular examination (principal) | CPT/HCPCS: 78452; 93016; 93018 ==

== ENCOUNTER → 2023-11-08 07:39 | Outpatient (REF) | payer MEDICARE, OTHER, SELFPAY ==
--- NOTE | 2023-11-08 07:48 | CA_ITS ---
Transthoracic Echocardiogram Patient (Last, First, Middle): Zander Espinal L Gender: Male Date of : 1935 Age: 88 Procedure Date: 11/08/2023 Procedure Type: Transthoracic Echocardiogram Location: OP Height: 190.5 cm Weight: 102.06 kg BSA: 2.31 m2 Heart Rate: bpm BP: 128 / 66 mmHg Wastewater Design Engineer: TO Referring MD: Valeria Hancock COMMUNITY ARTS WORKER Big Data Lead: Silvino Wilson MD Symptoms: I10 - Essential (primary) hypertension Study Quality: Adequate ECG Rhythm: Atrial Fibrillation Conclusions: - 1. Low normal LV ejection fraction 50-55% 2. Moderately dilated left atrium 3. Mild aortic and mitral regurgitation 4. Mildly dilated ascending aorta at 4 cm 5. Normal RV systolic pressure 6. No gross pericardial effusion Findings Left Ventricle Normal left ventricular cavity size. There is normal left ventricular wall thickness. The left ventricular systolic function is low normal. The visually estimated ejection fraction is between 50-55%. Diastolic function is indeterminate on the basis of available data. Right Ventricle Normal right ventricular cavity size and systolic function. There is a pacemaker wire seen in the right ventricle. Atria The left atrium is moderately dilated. There is lipomatous hypertrophy of the interatrial septum. There is no evidence of interatrial shunt. The right atrium is mildly dilated. Aortic Valve There is no evidence of thickening of the aortic valve. There is no aortic valve stenosis. There is mild aortic valve regurgitation. Mitral Valve There is mild anterior and posterior mitral leaflet thickening. There is mild mitral annular calcification. There is mild mitral valve regurgitation. There is no mitral valve stenosis. Pulmonic Valve The pulmonic valve is likely normal. There is trace pulmonic valve regurgitation. Tricuspid Valve Normal tricuspid valve structure. There is mild tricuspid valve regurgitation. The right ventricular systolic pressure is normal. The right ventricular systolic pressure is 27 mmHg. Normal right atrial pressure. There is no evidence of pulmonary hypertension. Great Vessels The pulmonary artery was not well visualized. There is mild dilatation of the ascending aorta measuring 4.00 cm. Venous The inferior vena cava is normal in size and collapses greater than 50% with inspiration. Pericardium/Pleural There is no evidence of pericardial effusion. Prior Study Comparison Changes noted compared to prior study dated: 01/14/2021. mildly dilated ascending aorta on this study with low normal LV ejection fraction Measurements 2D Linear Measurements IVSd: 1.11 0.6-0.9/0.6-1.0 cm LVIDd: 4.50 3.9-5.3/4.2-5.9 cm LVIDd Index: 1.95 2.4-3.2/2.2-3.1 cm/m2 LVIDs: 3.20 2.0-3.6 cm LVPWd: 1.03 0.7-1.1 cm LA Diam: 4.40 2.7-3.8/3.0-4.0 cm LAIDs Index: 1.90 1.5-2.3 cm/m2 LV Mass: 209.70 67-162/88-224 g LV Mass Index: 90.78 43-95/49-115 g/m2 LVOT Diam: 2.10 3.0+(-)1.3 cm 2D Systolic Function EF 4C: 51.30 >55% EF 2C: 57.10 >55% EF BiP: 54.00 >55% Mitral Valve MV VTI: 0.22 MV Pk Jorgito: 1.33 MV Mn Jorgito: 0.82 MV Pk Grad: 7.00 MV Mn Grad: 3.00 MV Pk E: 1.21 MV Decel Time: 167.00 E'Lateral: 6.71 E'Medial: 7.03 E/E' Med: 17.20 E/E' Lat: 18.00 PHT: 49.00 MVA PHT: 4.49 MVA Continuity: 2.92 Decel Andrews: 7.26 Aortic Valve AoV Pk Jorgito: 1.18 AoV Pk Grad: 6.00 LVOT LVOT Pk Jorgito: 0.93 LVOT Mn Jorgito: 0.61 LVOT VTI: 0.18 LVOT Pk Grad: 3.00 LVOT Mn Grad: 2.00 LVOT Diam: 2.10 LVOT Area: 3.46 Diastolic Function MV Pk E: 1.21 E'Medial: 7.03 E/E' Med: 17.20 E' Laterial: 6.71 E/E' Lat: 18.00 Right Ventricle TAPSE (mm): 20.20 TVS' Jorgito: 9.70 Tricuspid Valve TR Pk Jorgito: 2.17 TR Pk Grad: 19.00 RA Press: 8.00 RVSP: 27.00 Great Vessels Aorta Sinus of Valsalva: 3.54 2.0-3.[address] Ridge: 2.49 1.7-3.4 cm Ao Asc: 4.00 2.1-3.4 cm Ao Arch: 2.80 Updated in Other Vendor System with Status of Final Silvino Wilson MD electronically signed on 11/09/2023 2:59:50 PM with status of Final
== END ==
LOC: HO.CARD 07:39
PROVIDERS: Visit Provider Nurse Practitioner
DX: I10 Essential (primary) hypertension (principal); I48.91 Unspecified atrial fibrillation
CPT/HCPCS: 93306

== ENCOUNTER → 2023-11-08 07:48 | Outpatient (BNV) | payer MEDICARE, OTHER, SELFPAY | PROVIDERS: Visit Provider Internal Medicine Cardiovascular Disease | DX: I34.0 Nonrheumatic mitral (valve) insufficiency (principal); I35.1 Nonrheumatic aortic (valve) insufficiency | CPT/HCPCS: 93306 ==

== ENCOUNTER 2023-11-10 09:00 | Outpatient (AMB) | payer MEDICARE, OTHER, SELFPAY ==
[2023-11-10 09:08] LABS: ~PT, ~INR - Anti Coag Clinic 2.5 (0.9-1.1)
--- NOTE | 2023-11-10 09:21 | MHC.OFFVISCO ---
Intake Intake Visit Reasons: Anticoagulation Allergies No Known Allergies [No Known Allergies*] Allergy (Verified 10/31/23 09:11) Medication List - Last Reconciled 11/10/23 by Karina Epperson, RN atorvastatin 20 mg PO DAILY diltiazem HCl CD 180 mg PO DAILY finasteride (Proscar) 5 mg PO DAILY 90 days magnesium 200 mg PO DAILY triamterene-hydrochlorothiazid 75-50 mg 1 tab PO DAILY warfarin See Protocol 4MG X3DAYS/ 2MG X4DAYS 90 days Nursing Note INR: 2.5 in therapeutic range EVEN WITH DECREASED DOSE 2MG SUN Tue , HELD WED DOSE To have partial toe amps on 2 toes due to hammer toes, INR to be 2.0 or less holding yesterdays dose today's and tomorrows warfarin dose and having spinach at lunch today should have him down to 2.0 T/c to Dr Jose Silva office [phone] -left msg for production scheduler Mary to call [facility] regarding pt status Medications and supplements reviewed No changes in health, diet, medications, or supplements, Denies any signs and symptoms of bleeding or bruising or clotting. Bleeding, bruising, clotting discussed Nutritional guidance given - greens now Dose: hold warfarin Tue the 4mg sat then resume 4mg mwf/ 2mg x 4 days ( not many booster doses -INR was trending higher, and most likely will be taking tylenol F/U INR: 1 week if able- or arrange for Home lab draw- pt going to try to come in Patient verbalizes understanding of instructions given This note along with his warfarin instructions will be sent to Dr Smith office and [facility] for INR testing in am prior procedure Anti-Coag Initial Assessment Social Hx Patient Tobacco Use Status: Former Tobacco user Quit Date: 1979 alcohol intake: current Alcohol intake frequency: a few times a week Coding Level of Care Code Est Patient Level 1 Diagnoses Current use of 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 therapy Z79.01 Results AMB INR Fingerstick AMB INR Fingerstick 2.5 Last Edit by Karina Epperson RN on 11/10/23 09:09 MANUAL ENTRY Assessment & Plan Assessment & Plan (1) Current use of 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 therapy: Code(s): Z79.01 - [facility] (current) use of 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s Category: Medical
== END 2023-11-10 09:26 | disposition home or self-care (01) ==
LOC: HO.ACS 09:00
PROVIDERS: PCP Nurse Practitioner Family; Visit Provider Internal Medicine
DX: Z79.01 Long term (current) use of 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s (principal)

== ENCOUNTER → 2023-11-10 09:00 | Outpatient (BNVA) | payer MEDICARE, OTHER, SELFPAY | PROVIDERS: PCP Nurse Practitioner Family; Visit Provider Internal Medicine | DX: I48.20 Chronic atrial fibrillation, unspecified (principal); Z79.01 Long term (current) use of 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s; Z51.81 Encounter for therapeutic drug level monitoring | CPT/HCPCS: 85610; 99211 ==

== ENCOUNTER 2023-11-25 08:43 | Outpatient (AMB) | payer MEDICARE, OTHER, SELFPAY ==
[2023-11-25 08:57] LABS: ~PT, ~INR - Anti Coag Clinic 2.7 (0.9-1.1)
--- NOTE | 2023-11-25 09:25 | MHC.OFFVISCO ---
Intake Intake Visit Reasons: Anticoagulation Allergies No Known Allergies [No Known Allergies*] Allergy (Verified 11/25/23 08:47) Medication List - Last Reconciled 11/25/23 by Lindsay Tabor, RN atorvastatin 20 mg PO DAILY diltiazem HCl CD 180 mg PO DAILY doxycycline hyclate 100 mg PO BID finasteride (Proscar) 5 mg PO DAILY 90 days magnesium 200 mg PO DAILY triamterene-hydrochlorothiazid 75-50 mg 1 tab PO DAILY warfarin See Protocol 4MG X3DAYS/ 2MG X4DAYS 90 days Nursing Note To [facility] via WC accomp by daughter pt had bilt toe amps for hammer toes 4/5- 3 day warfarin hold- resumed 11/11 Medications and supplements reviewed, sts he will be starting antibiotic after seeing Dr Noah Smith yesterday, just havent picked it up yet not sure of the name TC to [facility]- per pharmacy no new med, TC to Dr Todd office, Doxycycline 100mg po BID x 14 days,was sent thru mail order, resent to [facility] [place] reviewed with pt and daughter med can raise INR, but has a delayed response, usually seen after a week or when med completed No other changes in health, diet, medications, or supplements, denies any pain in feet Denies any signs and symptoms of bleeding or bruising or clotting. INR: 2.7 in therapeutic range Dose: continue usual dosing 4mg x 3 days and 2mg x 4 days for now Nutritional guidance given- balance greens and reds over the weekend, add extra good dark leafy greens as week continues F/U INR: 1 week Instructed there will be more follow up related to potential rise from antibiotic Patient and daughter verbalizes understanding of instructions given Anti-Coag Initial Assessment Social Hx Patient Tobacco Use Status: Former Tobacco user Quit Date: 1979 alcohol intake: current Alcohol intake frequency: a few times a week Coding Level of Care Code Est Patient Level 2 Diagnoses Current use of 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 therapy Z79.01 Time Spent (min) 30 Assessment & Plan Assessment & Plan (1) Current use of 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 therapy: Code(s): Z79.01 - alf (current) use of 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s Category: Medical
== END 2023-11-25 09:36 | disposition home or self-care (01) ==
LOC: HO.ACS 08:43
PROVIDERS: PCP Nurse Practitioner Family; Visit Provider Internal Medicine
DX: Z79.01 Long term (current) use of 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s (principal)

== ENCOUNTER → 2023-11-25 08:43 | Outpatient (BNVA) | payer MEDICARE, OTHER, SELFPAY | PROVIDERS: PCP Nurse Practitioner Family; Visit Provider Internal Medicine | DX: I48.20 Chronic atrial fibrillation, unspecified (principal); Z79.01 Long term (current) use of 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s; Z51.81 Encounter for therapeutic drug level monitoring | CPT/HCPCS: 85610; 99212 ==

== ENCOUNTER → 2023-11-29 23:59 | Outpatient (BNV) | payer MEDICARE, OTHER, SELFPAY ==
--- NOTE | 2023-12-12 10:55 | A.OFFVIS_ITS ---
Intake Visit Reasons: Remote device check- [facility] Allergies No Known Allergies [No Known Allergies*] Allergy (Verified 12/12/23 08:38) [facility] Medical History (Updated 11/18/23 @ 15:15 by [facility] Hypertension, essential, benign Hyperlipidemia Atrial fibrillation Osteoarthritis Pacemaker (~2008) Current use of 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 therapy Surgical History (Updated 11/18/23 @ 15:15 by STACEY GleasonEN[facility]) History of colonoscopy History of eye surgery History of appendectomy Status post left foot surgery (~02/2020) Amputated toe of left foot History of cardiac pacemaker History of cardiac radiofrequency ablation (RFA) Family History Father No problems noted. Mother No problems noted. Social History Housing: House Alcohol intake: current Alcohol intake frequency: a few times a week Alcohol type: beer Patient Tobacco Use Status: Former Tobacco user Quit Date: 1979 Smoked: 15 e-Cigarette/Vaping Use: Never Used service: No Current occupational status: retired Hearing needs: No Vision needs: Yes (Glasses) Office Procedures Cardiac Device Check Cardiac Device Check Details: Pacemaker. Good battery life. V paced 24%. No new alerts. [id number] Cardiac Device Interrogation, pacemaker Procedure code (CPT) selection complete Assessment & Plan Assessment & Plan (1) Pacemaker: Onset Date: ~2008 Comment: (Pacemaker SCPP- [facility] - Initial DCPP 2008, replaced/SCPP 2017) Code(s): Z95.0 - Presence of cardiac pacemaker Category: Medical Plan Coding Level of Care Code Procedure Only Diagnoses Pacemaker Z95.0 CPT Codes Cardiac Device Check - Cardiac Device 12: [id number] Cardiac Device Interrogation, pacemaker ([id number])
== END ==
PROVIDERS: PCP Nurse Practitioner Family; Visit Provider Internal Medicine Cardiovascular Disease
DX: Z45.018 Encounter for adjustment and management of other part of cardiac pacemaker (principal)
CPT/HCPCS: 93294

== ENCOUNTER 2023-12-01 08:49 | Outpatient (AMB) | payer MEDICARE, OTHER, SELFPAY ==
[2023-12-01 08:59] LABS: Prothrombin Time Whole Bld POC 25.1 sec (11.1-13.5); ~PT, ~INR - Anti Coag Clinic 2.1 (0.9-1.1)
--- NOTE | 2023-12-01 09:05 | MHC.OFFVISCO ---
Intake Intake Visit Reasons: Anticoagulation Allergies No Known Allergies [No Known Allergies*] Allergy (Verified 12/01/23 08:51) Medication List - Last Reconciled 12/01/23 by Lindsay Tabor, RN atorvastatin 20 mg PO DAILY diltiazem HCl CD 180 mg PO DAILY doxycycline hyclate 100 mg PO BID finasteride (Proscar) 5 mg PO DAILY 90 days magnesium 200 mg PO DAILY triamterene-hydrochlorothiazid 75-50 mg 1 tab PO DAILY warfarin See Protocol 4MG X3DAYS/ 2MG X4DAYS 90 days Nursing Note To [facility] via WC accomp by daughter feeling well S/P foot surgery, denies any pain continue on Doxycycline (started approx 11/24)has been having good greens everyday at lunch, Broccoli and small amount cooked spinach sts sleeping better at night now without boot on and use of urinal Medications and supplements reviewed No other changes in health, diet, medications, or supplements, Denies any signs and symptoms of bleeding, bruising, or clotting. Bleeding, bruising, clotting discussed INR 2.1 in therapeutic range to continue usual dosing pattern 4mg x 3 days and 2mg x 4 days Nutritional guidance given continue daily green but no spinach until weekend of 12/08 F/U INR: Monday 12/11 (11 days) as they also have F/U with Dr Smith Patient and daughter verbalizes understanding of instructions given Anti-Coag Initial Assessment Social Hx Patient Tobacco Use Status: Former Tobacco user Quit Date: 1979 alcohol intake: current Alcohol intake frequency: a few times a week Coding Level of Care Code Est Patient Level 1 Diagnoses Current use of 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 therapy Z79.01 Time Spent (min) 15 Assessment & Plan Assessment & Plan (1) Current use of 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 therapy: Code(s): Z79.01 - medical terminologist (current) use of 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s Category: Medical
== END 2023-12-01 09:16 | disposition home or self-care (01) ==
LOC: HO.ACS 08:49
PROVIDERS: PCP Nurse Practitioner Family; Visit Provider Internal Medicine
DX: Z79.01 Long term (current) use of 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s (principal)

== ENCOUNTER → 2023-12-01 08:49 | Outpatient (BNVA) | payer MEDICARE, OTHER, SELFPAY | PROVIDERS: PCP Nurse Practitioner Family; Visit Provider Internal Medicine | DX: I48.20 Chronic atrial fibrillation, unspecified (principal); Z51.81 Encounter for therapeutic drug level monitoring; Z79.01 Long term (current) use of 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s | CPT/HCPCS: 85610; 99211 ==

== ENCOUNTER 2023-12-12 08:34 | Outpatient (AMB) | payer MEDICARE, OTHER, SELFPAY ==
--- NOTE | 2023-12-12 08:43 | MHC.OFFVISCO ---
Intake Intake Visit Reasons: Anticoagulation Allergies No Known Allergies [No Known Allergies*] Allergy (Verified 12/12/23 08:38) Medication List - Last Reconciled 12/12/23 by Alicia Coffey RN atorvastatin 20 mg PO DAILY diltiazem HCl CD 180 mg PO DAILY finasteride (Proscar) 5 mg PO DAILY 90 days magnesium 200 mg PO DAILY triamterene-hydrochlorothiazid 75-50 mg 1 tab PO DAILY warfarin See Protocol 4MG X3DAYS/ 2MG X4DAYS 90 days Nursing Note INR 3.1-? out of therapeutic range of 2-3 Medications and supplements reviewed Patient status: pt s/p toe surg 11/11/23, bilat foot dsg juan wrap, dry and intact. pt in w/c. calixto with pt. pt has f/u appt at podiatry today Medications or supplements: finished doxycycline on tuesday last week Diet: same Denies any signs and symptoms of bleeding or clotting or unusual bruising Bleeding, bruising, clotting discussed Nutritional guidance given: eat greens to lower today and tomm Dose: 4mg x 3, 2mg x 4 F/U INR Date : 10 days?? Patient verbalizing understanding of instructions given. Anti-Coag Initial Assessment Social Hx Patient Tobacco Use Status: Former Tobacco user Quit Date: 1979 alcohol intake: current Alcohol intake frequency: a few times a week Coding Level of Care Code Est Patient Level 1 Diagnoses Current use of 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 therapy Z79.01 Assessment & Plan Assessment & Plan (1) Current use of 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 therapy: Code(s): Z79.01 - terminal supervisor (current) use of 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s Category: Medical
[2023-12-12 08:44] LABS: Prothrombin Time Whole Bld POC 37.7 sec (11.1-13.5); ~PT, ~INR - Anti Coag Clinic 3.1 (0.9-1.1)
== END 2023-12-12 08:51 | disposition home or self-care (01) ==
LOC: HO.ACS 08:34
PROVIDERS: PCP Nurse Practitioner Family; Visit Provider Internal Medicine
DX: Z79.01 Long term (current) use of 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s (principal)

== ENCOUNTER → 2023-12-12 08:34 | Outpatient (BNVA) | payer MEDICARE, OTHER, SELFPAY | PROVIDERS: PCP Nurse Practitioner Family; Visit Provider Internal Medicine | DX: I48.20 Chronic atrial fibrillation, unspecified (principal); Z51.81 Encounter for therapeutic drug level monitoring; Z79.01 Long term (current) use of 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s | CPT/HCPCS: 85610; 99211 ==

== ENCOUNTER 2023-12-22 08:29 | Outpatient (AMB) | payer MEDICARE, OTHER, SELFPAY ==
[2023-12-22 08:37] LABS: Prothrombin Time Whole Bld POC 42.4 sec (11.1-13.5); ~PT, ~INR - Anti Coag Clinic 3.5 (0.9-1.1)
--- NOTE | 2023-12-22 08:42 | MHC.OFFVISCO ---
Intake Intake Visit Reasons: Anticoagulation Allergies No Known Allergies [No Known Allergies*] Allergy (Verified 12/22/23 08:31) Medication List - Last Reconciled 12/22/23 by Karina Epperson RN atorvastatin 20 mg PO DAILY diltiazem HCl CD 180 mg PO DAILY doxycycline monohydrate 100 mg PO BID finasteride (Proscar) 5 mg PO DAILY 90 days magnesium 200 mg PO DAILY triamterene-hydrochlorothiazid 75-50 mg 1 tab PO DAILY warfarin See Protocol 4MG X3DAYS/ 2MG X4DAYS 90 days Nursing Note INR 3.5?? out of therapeutic range Medications and supplements reviewed Patient status: recovering from 2 partial toe amps, able to walk with out pain in to clinic Just completed antbx 6 days ago, he has been eating greens Medications or supplements: no other changes Diet: good Denies any signs and symptoms of bleeding or clotting or unusual bruising Bleeding, bruising, clotting discussed Nutritional guidance given: greens today then resume usual diet, have an extra green next week due to antbx Dose: decrease today to 1 mg then resume usual dose 4mg x 2 days/ 2mg x 4 days F/U INR Date: 4 weeks per pt request due to condition - INR for him usually stable ?? Patient verbalizing understanding of instructions given. Anti-Coag Initial Assessment Social Hx Patient Tobacco Use Status: Former Tobacco user Quit Date: 1979 alcohol intake: current Alcohol intake frequency: a few times a week Coding Level of Care Code Est Patient Level 1 Diagnoses Current use of 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 therapy Z79.01 Assessment & Plan Assessment & Plan (1) Current use of 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 therapy: Code(s): Z79.01 - terminal makeup operator (current) use of 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s Category: Medical
== END 2023-12-22 08:49 | disposition home or self-care (01) ==
LOC: HO.ACS 08:29
PROVIDERS: PCP Nurse Practitioner Family; Visit Provider Internal Medicine
DX: Z79.01 Long term (current) use of 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s (principal)

== ENCOUNTER → 2023-12-22 08:29 | Outpatient (BNVA) | payer MEDICARE, OTHER, SELFPAY | PROVIDERS: PCP Nurse Practitioner Family; Visit Provider Internal Medicine | DX: I48.20 Chronic atrial fibrillation, unspecified (principal); Z51.81 Encounter for therapeutic drug level monitoring; Z79.01 Long term (current) use of 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s; R31.0 Gross hematuria; N40.0 Benign prostatic hyperplasia without lower urinary tract symptoms; N20.0 Calculus of kidney | CPT/HCPCS: 51798; 81003; 85610; 99211; 99212 ==

== ENCOUNTER 2023-12-22 08:47 | Outpatient (AMB) | payer MEDICARE, OTHER, SELFPAY ==
--- NOTE | 2023-12-22 08:50 | A.OFFVIS_ITS ---
Intake Visit Reasons: 3m follow up Intake Note: Patient presents today for a 3 months PVR follow-up: Meds: Finasteride Allergies to Antibiotic: No Known Allergies Blood Thinner: Warfarin Post Void Residual: 15mL Bicycle Fitter Required: No Accompanied by: Daughter Allergies No Known Allergies [No Known Allergies*] Allergy (Verified 12/22/23 08:31) HPI Comments Details: 12/22/2023--Zander is here for follow-up. 88-year-old male followed for BPH, obstructive voiding symptoms, workup for gross hematuria, the patient is on blood thinner Coumadin. CT imaging - 2 mm left kidney stone, the patient was last seen in the office 09/22/2023 and was started on Proscar. Heron is here with his daughter and doris luna he has been doing well on the medication voiding without difficulty. Bladder scan PVR is 15 mL. I have discussed that if the stone in the left kidney moves he may get flank pain and see blood in the urine into contact the office. Review of chart: 09/22/23- Zander is here for Follow up, he is being followed for BPH, incomplete bladder emptying and hematuria, He has a PMH of atrial fibrillation, hyperlipidemia, hypertension, osteoarthritis, and has a pacemaker. He had office cysto on 07/20/23, no suspicious bladder lesions. Bladder scan PVR 117 mL. Plan proscar 5 mg daily ordered. 07/20/23-- CYSTOSCOPY - mild Trabeculation, bruising noted to bladder mucosa, multifocal areas, may represent changes from prior catheter, prostatic urethra non obstructive, bulbous urethra WNL, no suspicious bladder lesions visualized. 07/14/23- seen by JATINDER Zander is a pleasant 87-year-old male patient of Dr. Vizcarra who was accompanied by his daughter at today's office visit. He has a PMH of atrial fibrillation, hyperlipidemia, hypertension, osteoarthritis, and has a pacemaker. He presents to the office today for follow-up of his gross hematuria. In discussion with the patient today reports having seeked emergency room care approximately 3 weeks ago for gross hematuria at which time a CT was ordered and performed. These results reviewed with the patient his daughter today. 2 mm nonobstructing left renal calculus. No hydronephrosis. Irregular shaped hyperdense focus which appears to be within the lumen of the bladder which measures approximately 2.1 x 1.0 x 2.2 cm. This is a nonspecific finding. This may represent a blood clot or bladder mass is also within the differential. Of note, patient was seen in the office approximately 6 months ago for an elevated PSA at which time recommendations were made for redraw of PSA as well as retroperitoneal ultrasound however it does not appear patient to have completed recommendations. Discussed and stressed the importance of following up for continuity of care as well as overall health and well-being. 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 He also reports a previous smoking history however quit over 40 years ago. He reports having smoked for approximately 15-20 years no more than half a pack per day. Imaging: CTAP 1. 2 mm nonobstructing left renal calculus. No hydronephrosis. 2. Irregularly-shaped hyperdense focus which appears to be within the lumen of the bladder which measures approximately 2.1 x 1.0 x 2.2 cm. PSA results--- 06/28--1.3 04/29--3.2 10/28--5.7 [facility] Medical History Hypertension, essential, benign Hyperlipidemia Atrial fibrillation Osteoarthritis Pacemaker (~2008) Current use of 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 therapy Surgical History History of colonoscopy History of eye surgery History of appendectomy Status post left foot surgery (~02/2020) Amputated toe of left foot History of cardiac pacemaker History of cardiac radiofrequency ablation (RFA) Family History Father No problems noted. Mother No problems noted. Social History Housing: House Alcohol intake: current Alcohol intake frequency: a few times a week Alcohol type: beer Patient Tobacco Use Status: Former Tobacco user Quit Date: 1979 Smoked: 15 e-Cigarette/Vaping Use: Never Used service: No Current occupational status: retired Hearing needs: No Vision needs: Yes (Glasses) Review of Systems Const All systems reviewed & are unremarkable except as noted in HPI and below Reports no additional complaints Eyes Reports no additional complaints ENT Reports no additional complaints Card Reports no additional complaints Resp Reports no additional complaints GI Reports no additional complaints Reports as per HPI Musc Reports no additional complaints Skin/Breast Reports system reviewed and no additional complaints, except as documented Neuro Reports no additional complaints Psych Reports no additional complaints Endo Reports no additional complaints Ike/Lymph Reports no additional complaints Aller/Immun Reports no additional complaints Office Procedures Post Void Residual Post Residual Void Post Void Residual (PVR): 15 [id number] Void Residual by ultrasound Results AMB Urinalysis, Automated UA Leukoctes 0 Paulino/uL Last Edit by CLARITZA Zurita on 12/22/23 09:05 UA Nitrite Negative Last Edit by CLARITZA Zurita on 12/22/23 09:05 UA Urobilinogen 0.2 mg/dL Last Edit by CLARITZA Zurita on 12/22/23 09:0 5 UA Protein 15 mg/dL Last Edit by CLARITZA Zurita on 12/22/23 09:05 UA pH 6.0 Last Edit by CLARITZA Zurita on 12/22/23 09:05 UA Blood 10 Robert/uL Last Edit by CLARITZA Zurita on 12/22/23 09:05 UA Specific [place] 1.015 Last Edit by CLARITZA Zurita on 12/22/23 09: 05 UA Ketone Last Edit by CLARITZA Zurita on 12/22/23 09:05 UA Bilirubin 0 mg/dL Last Edit by CLARITZA Zurita on 12/22/23 09:05 UA Glucose 0 mg/dL Last Edit by CLARITZA Zurita on 12/22/23 09:05 Assessment & Plan Assessment & Plan (1) Enlarged prostate: Code(s): N40.0 - Benign prostatic hyperplasia without lower urinary tract symptoms Category: Medical (2) Hematuria: Code(s): R31.9 - Hematuria, unspecified Category: Medical (3) Kidney stone on left side: Code(s): N20.0 - Calculus of kidney Category: Medical Plan proscar 5 mg daily, FU in 9 months Orders: Orders AMB Post Void Residual by ultrasound Today N39.8 - Other specified disorders of urinary system AMB Urinalysis Automated Today Z13.9 - Encounter for screening, unspecified Patient Instructions: The patient had an opportunity to ask questions regarding treatment plan. The patient expressed understanding and agreement with the above treatment plan. The patient is aware they should contact our office by phone for worsening of their current condition or the appearance of new symptoms. Compliance is encouraged with any medications and followup testing that is ordered. It is a privilege to be allowed the opportunity to participate in the urologic care of your patient. If you have any questions or concerns regarding treatment for the above conditions please do not hesitate to contact me. The office telephone contact is [phone]. This note is constructed in part using voice recognition software. While every effort has been made to ensure accuracy protective services social worker errors may have been inclu ded. Yours sincerely, Chetna Armstrong MD Coding Level of Care Code Complex EM visit Add On G2211 Diagnoses Enlarged prostate N40.0 Hematuria R31.9 Kidney stone on left side N20.0 CPT Codes Post Residual Void - PVR CPT Code: 55950-[id number] Void Residual by ultrasound ([id number])
== END 2023-12-22 09:29 | disposition home or self-care (01) ==
PROVIDERS: PCP Nurse Practitioner Family; Visit Provider Urology
DX: N40.0 Benign prostatic hyperplasia without lower urinary tract symptoms (principal); R31.9 Hematuria, unspecified; N20.0 Calculus of kidney; Z13.9 Encounter for screening, unspecified
CPT/HCPCS: 99213; G2211

== ENCOUNTER 2024-01-04 08:44 | Outpatient (AMB) | payer MEDICARE, OTHER, SELFPAY ==
[2024-01-04 08:54] VITALS: BP 122/64; PULSE 86; O2SAT 95; BMI 28.7
--- NOTE | 2024-01-04 08:54 | MHC.OFFVIS ---
Vital Signs 01/04/24 08:54 Height 6 ft 3 in Weight 229 lb 4.492 oz BMI 28.7 BP 122/64 Blood Pressure Location Lt brachial Position Sitting Pulse 86 Pulse Source Pulse Oximeter Pulse Oximetry (%) 95 Intake Visit Reasons: 1 yr f/up Intake Note: pt states that he is doing fine, he state that his left side feel some swollen, Periodicals Library Assistant Required: No Accompanied by: Daughter Allergies No Known Allergies [No Known Allergies*] Allergy (Verified 12/22/23 08:31) Medication List - Last Reconciled 01/04/24 by Delfino Fry MD atorvastatin 20 mg PO DAILY diltiazem HCl CD 180 mg PO DAILY finasteride (Proscar) 5 mg PO DAILY 90 days magnesium 200 mg PO DAILY triamterene-hydrochlorothiazid 75-50 mg 1 tab PO DAILY warfarin See Protocol 4MG X3DAYS/ 2MG X4DAYS 90 days HPI Comments Details: Pleasant 88 year old gentleman here for follow-up. He was previously seeing Dr. Ku. He has background of atrial fibrillation. He had cardioversion as well as ablation while he was at [facility]. Subsequently developed atrial fibrillation again reportedly. Unclear why he had a pacemaker placed but he had pacemaker placed many years ago. He is asymptomatic from atrial fibrillation point of view. Denies any chest pain shortness of breath. No heart failure episodes. Taking medications regularly. No bleeding issues. ECHO in 2020 did not show any wall motion abnormalities. Ejection fraction was 55-60%. Previously he has complained of some chest discomfort which led to Lexiscan which was normal. 01/04/2024: He returns for follow-up. He underwent surgery for hammertoes and he is walking better at this stage. He has left shoulder pain as well as left-sided neck pain. He also has noticed some fullness on the left side of his chest and there is some breast tissue which he has felt. He is concerned that is this related to any heart issue. He is getting a left shoulder injection tomorrow for shoulder pain. He has not been exercising regularly since the hammertoe surgery and due to shoulder pain and he has noticed that he gets out of breath easily. He has permanent atrial fibrillation and has been treated with a rate control strategy and has been on diltiazem. [facility] Medical History (Updated 12/28/23 @ 13:29 by Romain Vizcarra, [facility]) Tachy-garrison syndrome Hypertension, essential, benign Hyperlipidemia Atrial fibrillation Osteoarthritis Pacemaker (~2008) Current use of 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 therapy Surgical History History of colonoscopy History of eye surgery History of appendectomy Status post left foot surgery (~02/2020) Amputated toe of left foot History of cardiac pacemaker History of cardiac radiofrequency ablation (RFA) Family History Father No problems noted. Mother No problems noted. Social History Housing: House Alcohol intake: current Alcohol intake frequency: a few times a week Alcohol type: beer Patient Tobacco Use Status: Former Tobacco user Quit Date: 1979 Smoked: 15 e-Cigarette/Vaping Use: Never Used service: No Current occupational status: retired Hearing needs: No Vision needs: Yes (Glasses) Review of Systems Const Denies chills, Denies fatigue, Denies fever(s), Denies frequent falls, Denies weakness, Denies weight gain and Denies weight loss ENT Denies dizziness Card Denies chest pain, Denies leg edema, Denies lightheadedness, Denies palpitations, Denies dyspnea and Denies dyspnea on exertion Resp Denies cough, Denies dyspnea and Denies dyspnea on exertion GI Denies hematochezia Musc Denies abnormal gait, Denies muscle weakness, Denies numbness, Denies radiating pain into limb and Denies tingling Neuro Denies abnormal gait, Denies dizziness, Denies frequent falls, Denies numbness, Denies tingling and Denies weakness Endo Denies fatigue and Denies palpitations Physical Exam Vital Signs: Last Vital Signs Pulse 86 01/04/24 08:54 BP 122/64 01/04/24 08:54 Pulse Ox 95 01/04/24 08:54 BMI result Body Mass Index 28.7 GENERAL APPEARANCE: in no acute distress, pleasant. NECK: no carotid bruit, no jugular venous distention. SKIN: no suspicious lesions, warm and dry. HEART: no murmurs, irregular rate and rhythm. LUNGS: clear to auscultation bilaterally. ABDOMEN: soft, nontender. EXTREMITIES: no edema. PERIPHERAL PULSES: equal. NEUROLOGIC: No gross deficits, AAO X 3 Assessment & Plan Assessment & Plan (1) Pacemaker: Onset Date: ~2008 Comment: (Pacemaker SCPP- [facility] - Initial DCPP 2008, replaced/SCPP 2018) Code(s): Z95.0 - Presence of cardiac pacemaker Category: Medical (2) Hypertension, essential, benign: Code(s): I10 - Essential (primary) hypertension Category: Medical (3) Atrial fibrillation: Code(s): I48.91 - Unspecified atrial fibrillation Category: Medical Plan 88-year-old gentleman who is here for follow-up. He says background history of chronic atrial fibrillation. He has been treated with a rate control strategy. He also has a permanent pacemaker in the past. He has been on Coumadin for anticoagulation. Clinically not in heart failure. He has some dyspnea which is due to inactivity due to hammertoe surgery as well as shoulder pain for which he is getting some injections locally. Blood pressure is well controlled. Heart rate is well controlled. Continue same medications for now. He will see us back in few months. Thank you for allowing me to participate in the care of your patient. Please feel free to contact me if you have any questions. Coding Level of Care Code Est Pt Level 4 (79035) Diagnoses Pacemaker Z95.0 Hypertension, essential, benign I10 Atrial fibrillation I48.91
== END 2024-01-04 09:26 | disposition home or self-care (01) ==
PROVIDERS: PCP Nurse Practitioner Family; Visit Provider Internal Medicine Cardiovascular Disease
DX: I10 Essential (primary) hypertension (principal); I48.91 Unspecified atrial fibrillation; Z95.0 Presence of cardiac pacemaker
CPT/HCPCS: 99213

== ENCOUNTER → 2024-01-04 08:44 | Outpatient (BNVA) | payer MEDICARE, OTHER, SELFPAY | PROVIDERS: PCP Nurse Practitioner Family; Visit Provider Internal Medicine Cardiovascular Disease | DX: I48.91 Unspecified atrial fibrillation (principal); I10 Essential (primary) hypertension; Z95.0 Presence of cardiac pacemaker | CPT/HCPCS: 99212 ==

== ENCOUNTER 2024-01-05 09:33 | Outpatient (REF) | payer MEDICARE, OTHER, SELFPAY ==
--- NOTE | ~2024-01-05 | XR_ITS ---
EXAMINATION: XR CERVICAL SPINE CLINICAL INFORMATION: Cervicalgia COMPARISON: None available. TECHNIQUE: AP and lateral views of the cervical spine were obtained. FINDINGS: The bones are diffusely demineralized. No fracture. Prevertebral soft tissues are within normal limits. There is straightening of the usual cervical lordosis which can be seen with muscle spasm or be due to patient positioning. C7 is mostly obscured by the patient's shoulders on the lateral view. There is moderate disc space narrowing with marginal osteophyte formation at C3-C4. There is multilevel degenerative change of the facet joints. There is mild retrolisthesis of C3 with respect to C4. XR/XR cervical spine 2V IMPRESSION: 1. 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 2. Multilevel degenerative change of the facet joints. 3. Straightening of the usual cervical lordosis which can be seen with muscle spasm or be due to patient positioning.
--- NOTE | ~2024-01-05 | XR_ITS ---
EXAMINATION: XR SHOULDER, LEFT CLINICAL INFORMATION: Left shoulder pain. COMPARISON: None. TECHNIQUE: Three views of the left shoulder. FINDINGS: Left-sided subclavian pacer. Alignment across the shoulder is anatomic. Moderate osteoarthritis in the acromioclavicular and glenohumeral joints. Calcific tendinitis at the rotator cuffinsertion. No acute fracture. The visible left chest is clear. XR/XR shoulder LT min 2V IMPRESSION: Moderate osteoarthritis of the glenohumeral and acromioclavicular joints. Calcific tendinitis at the rotator cuff insertion.
== END 2024-01-05 09:34 | disposition home or self-care (01) ==
LOC: HO.HMGCX 09:33
PROVIDERS: PCP Nurse Practitioner Family; Visit Provider Nurse Practitioner Family
DX: M54.2 Cervicalgia (principal); M25.512 Pain in left shoulder
CPT/HCPCS: 72040; 73030

== ENCOUNTER 2024-01-19 08:01 | Outpatient (AMB) | payer MEDICARE, OTHER, SELFPAY ==
[2024-01-19 08:10] LABS: Prothrombin Time Whole Bld POC 43.7 sec (11.1-13.5); ~PT, ~INR - Anti Coag Clinic 3.6 (0.9-1.1)
--- NOTE | 2024-01-19 08:16 | MHC.OFFVISCO ---
Intake Intake Visit Reasons: Anticoagulation Allergies No Known Allergies [No Known Allergies*] Allergy (Verified 01/19/24 08:04) Medication List - Last Reconciled 01/19/24 by Lindsay Tabor RN atorvastatin 20 mg PO DAILY diltiazem HCl CD 180 mg PO DAILY finasteride (Proscar) 5 mg PO DAILY 90 days magnesium 200 mg PO DAILY triamterene-hydrochlorothiazid 75-50 mg 1 tab PO DAILY warfarin See Protocol 4MG X3DAYS/ 2MG X4DAYS 90 days Nursing Note Amb to ACS feeling well Medications and supplements reviewed No new changes in health, diet, medications, or supplements, Denies any signs and symptoms of bleeding, bruising,or clotting. 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 Dose: decrease dose today to 1mg then resume usual dosing over weekend, then next week decrease dosing to 4mg x 2 days (vs 3 days) and 2mg x 5 days (vs 4 days) Nutritional guidance given have cooked green today small serving spinach or good serving steamed broccoli F/U INR: 2 weeks Patient verbalizes understanding of instructions given Anti-Coag Initial Assessment Social Hx Patient Tobacco Use Status: Former Tobacco user alcohol intake: current Alcohol intake frequency: a few times a week Coding Level of Care Code Est Patient Level 1 Diagnoses Current use of 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 therapy Z79.01 Time Spent (min) 15 Assessment & Plan Assessment & Plan (1) Current use of 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 therapy: Code(s): Z79.01 - salvage determiner (current) use of 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s Category: Medical
== END 2024-01-19 08:25 | disposition home or self-care (01) ==
LOC: HO.ACS 08:01
PROVIDERS: PCP Nurse Practitioner Family; Visit Provider Internal Medicine
DX: Z79.01 Long term (current) use of 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s (principal)

== ENCOUNTER → 2024-01-19 08:01 | Outpatient (BNVA) | payer MEDICARE, OTHER, SELFPAY | PROVIDERS: PCP Nurse Practitioner Family; Visit Provider Internal Medicine | DX: I48.20 Chronic atrial fibrillation, unspecified (principal); Z79.01 Long term (current) use of 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s; Z51.81 Encounter for therapeutic drug level monitoring | CPT/HCPCS: 85610; 99211 ==

== ENCOUNTER 2024-02-02 08:25 | Outpatient (AMB) | payer MEDICARE, OTHER, SELFPAY ==
--- NOTE | 2024-02-02 08:51 | MHC.OFFVISCO ---
Intake Intake Visit Reasons: Anticoagulation Allergies No Known Allergies [No Known Allergies*] Allergy (Verified 02/02/24 08:40) Medication List - Last Reconciled 02/02/24 by Lindsay Irwin RN atorvastatin 20 mg PO DAILY diltiazem HCl CD 180 mg PO DAILY finasteride (Proscar) 5 mg PO DAILY 90 days magnesium 200 mg PO DAILY triamterene-hydrochlorothiazid 75-50 mg 1 tab PO DAILY warfarin See Protocol 4MG X3DAYS/ 2MG X4DAYS 90 days Nursing Note INR: 2.9 in therapeutic range of 2-3 Medications and supplements reviewed No changes in health, diet, medications, or supplements, Denies any signs and symptoms of bleeding or bruising or clotting. Bleeding, bruising, clotting discussed Nutritional guidance given to continue to balance greens and reds Dose: 2mg X 4 days and 4mg X 3 days F/U INR: 1 month Patient verbalizes understanding of instructions given Anti-Coag Initial Assessment Social Hx Patient Tobacco Use Status: Former Tobacco user alcohol intake: current Alcohol intake frequency: a few times a week Coding Level of Care Code Est Patient Level 1 Diagnoses Current use of 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 therapy Z79.01 Results AMB INR Fingerstick AMB INR Fingerstick 2.9 Last Edit by Lindsay Irwin RN on 02/02/24 08:45 interface delay Assessment & Plan Assessment & Plan (1) Current use of 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 therapy: Code(s): Z79.01 - ocean transportation intermediary (current) use of 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s Category: Medical
[2024-02-02 09:42] LABS: Prothrombin Time Whole Bld POC 34.8 sec (11.1-13.5); ~PT, ~INR - Anti Coag Clinic 2.9 (0.9-1.1)
== END 2024-02-02 08:53 | disposition home or self-care (01) ==
LOC: HO.ACS 08:25
PROVIDERS: PCP Nurse Practitioner Family; Visit Provider Internal Medicine
DX: Z79.01 Long term (current) use of 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s (principal)

== ENCOUNTER → 2024-02-02 08:25 | Outpatient (BNVA) | payer MEDICARE, OTHER, SELFPAY | PROVIDERS: PCP Nurse Practitioner Family; Visit Provider Internal Medicine | DX: I48.20 Chronic atrial fibrillation, unspecified (principal); Z79.01 Long term (current) use of 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s; Z51.81 Encounter for therapeutic drug level monitoring | CPT/HCPCS: 85610; 99211 ==

== ENCOUNTER 2024-02-17 06:59 | Outpatient (REF) | payer MEDICARE, OTHER, SELFPAY ==
--- NOTE | ~2024-02-17 | CT_ITS ---
EXAMINATION: CT CERVICAL SPINE WITHOUT CONTRAST CLINICAL INFORMATION: Pain in left shoulder.? Radiculopathy. COMPARISON: No prior CT available. Prior x-ray cervical spine 12/09/2023. TECHNIQUE: Spiral CT imaging of the cervical spine was performed from the skull base to the thoracic inlet. Sagittal, coronal, and thin section axial reformat and were constructed from the axial data set. This CT examination was performed using dose optimization techniques as appropriate, variously including the following: *Automated exposure control *Adjustment of mA and/or kV according to patient size (this includes techniques or standardized protocols for targeted exams where dose is matched to indication/reason for exam; i.e. extremities or head) *Use of iterative reconstruction technique DLP: 336 mGy-cm Please note, due to [employer] technical, staffing, systems and internal issues, this examination was not available for dictation until 03/16/2024. FINDINGS: There is mild straightening of the normal lordosis with minimal reversal seen at C3. No significant scoliosis. There is no fracture or suspicious bone lesion. There is a 3 mm anterolisthesis of C2 on C3. There is a 2 mm anterolisthesis of C4 on C5. Alignment otherwise anatomic. Severe disc degeneration C3-C4 with sclerotic type endplate changes and prominent marginal osteophyte formation. Otherwise, moderate disc degeneration at the other levels with relative sparing of C7-T1. Mild calcification of the nuchal ligament is noted. There is degenerative change at the atlantoaxial joint with minimal pannus formation but no evidence of central canal stenosis. There is no paravertebral or paraspinal soft tissue abnormality. Mild atheromatous carotid bulb calcification noted right greater than left. Posterior fossa structures demonstrate mild left greater than right subdural hygromas overlying the cerebellar hemispheres. The fourth ventricle is midline. Lung apices were excluded from the exam. Axial Disc Space Images: C2-C3: There is a shallow disc osteophytic ridge complex present, mild right and moderate left facet degenerative hypertrophic changes, left greater than right uncinate hypertrophic changes, with the combination of findings resulting in mild central canal stenosis, and mild left neural foraminal stenosis. 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 C3-C4: Severe disc degeneration with large dorsal osteophytic ridge complex, which is contiguous with bilateral uncinate spurring left greater than right, and mild facet spurring right greater than left. The combination of findings is resulting in severe central canal stenosis with probable cord impingement, severe bilateral lateral recess stenosis, and severe bilateral neural foraminal encroachment left greater than right. C4-C5: Minimal disc uncovering secondary to anterolisthesis, moderate bilateral hypertrophic degenerative facet changes, mild left greater than right uncinate hypertrophic changes, with the combination of findings resulting in minimal central canal narrowing, mild right, and moderate left neural foraminal stenosis. C5-C6: There is a shallow disc osteophytic bulge, which is contiguous with moderate right greater than left uncinate hypertrophic changes. There are mild to moderate right greater than left facet hypertrophic changes, with a combination of findings resulting in mild central canal stenosis, mild bilateral lateral recess stenosis, and moderate to severe right neural foraminal stenosis. There is moderate left neural foraminal narrowing. C6-C7: Shallow diffuse disco osteophytic bulge present, contiguous with bilateral uncinate spurring bilaterally. Mild facet hypertrophy bilaterally. There is mild central canal narrowing, mild subarticular recess narrowing bilaterally, moderate to severe right greater than left neural foraminal stenosis. C7-T1: No significant disc herniation or central canal narrowing. Moderate right neural foraminal narrowing is present due to uncinate spurring and right facet spurring. Left neural foramen is patent. CT/CT cervical spine wo IV con IMPRESSION: 1. No acute cervical spine findings. 2. Moderate degenerative spondylosis of the cervical spine most significant at C3-C4, where a dorsal disc osteophytic ridge complex contributes to moderate to severe central canal stenosis, severe bilateral lateral recess stenosis, and severe left greater than right neural foraminal stenosis. There may be cord impingement at this level. 3. Otherwise, no additional levels of significant central canal narrowing. 4. At C5-C6 and C6-C7, moderate to severe right neural foraminal stenosis is present. 5. 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 6. Please see above for details.
== END 2024-02-17 07:00 | disposition home or self-care (01) ==
LOC: HO.CT 06:59
PROVIDERS: Visit Provider Nurse Practitioner Family
DX: M54.2 Cervicalgia (principal)
CPT/HCPCS: 72125

== ENCOUNTER → 2024-02-17 06:59 | Outpatient (BNV) | payer MEDICARE, OTHER, SELFPAY | PROVIDERS: Visit Provider Radiology Diagnostic Radiology | DX: M25.512 Pain in left shoulder (principal) | CPT/HCPCS: 72125 ==

== ENCOUNTER 2024-02-23 08:41 | Outpatient (AMB) | payer MEDICARE, OTHER, SELFPAY ==
--- NOTE | 2024-02-23 08:48 | MHC.OFFVIS ---
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 The patient states that he 1st injured his left shoulder and neck approximately 20 years ago when he fell. He has tried Tylenol which gives him minimal relief. He describes his neck pain as sharp in nature. The patient is not able to have an MRI because he has a pacemaker. States that he recently had a CT scan of his cervical spine. A report of the findings on the scan is not yet available. Accompanied by: Daughter Allergies No Known Allergies [No Known Allergies*] Allergy (Verified 02/23/24 09:01) Medication List - Last Reconciled 02/24/24 by Juanito Ybarra MD atorvastatin 20 mg PO DAILY diltiazem HCl CD 180 mg PO DAILY finasteride (Proscar) 5 mg PO DAILY 90 days magnesium 200 mg PO DAILY triamterene-hydrochlorothiazid 75-50 mg 1 tab PO DAILY warfarin See Protocol 4MG X3DAYS/ 2MG X4DAYS 90 days PFSH Medical History Tachy-garrison syndrome Hypertension, essential, benign Hyperlipidemia Atrial fibrillation Osteoarthritis Pacemaker (~2008) Current use of 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 therapy Surgical History History of colonoscopy History of eye surgery History of appendectomy Status post left foot surgery (~02/2020) Amputated toe of left foot History of cardiac pacemaker History of cardiac radiofrequency ablation (RFA) Family History Father No problems noted. Mother No problems noted. Social History Housing: House Alcohol intake: current Alcohol intake frequency: a few times a week Alcohol type: beer Patient Tobacco Use Status: Former Tobacco user Years Smoked: 15 e-Cigarette/Vaping Use: Never Used service: No Current occupational status: retired Hearing needs: No Vision needs: Yes (Glasses) Physical Exam Vital Signs: BMI result Body Mass Index 28.5 Const Other: Well-nourished well-developed very friendly male awake alert and oriented x3 in no acute distress Extrem Other: Bilateral upper extremity examination shows good capillary refill, no skin lesions noted, normal sensation light touch Left shoulder examination shows slightly decreased active range of motion when compared to his right shoulder, 3/5 strength with supraspinatus testing, positive impingement signs, no instability Office Procedures Joint Injection/Drain Joint Injection/Drain Primary Site: left shoulder Prep: site was prepped using aseptic technique Injected: 40 mg of, DepoMedrol and 1% plain lidocaine Procedure: The patient tolerated the procedure well Coding - Large joint Procedure code (CPT) selection complete Results Reviewed Results Reviewed: X-rays of the patient's left shoulder show severe acromioclavicular joint narrowing, a type 2 acromion, no acute bony abnormalities Assessment & Plan Assessment & Plan (1) Left shoulder pain: Code(s): M25.512 - Pain in left shoulder Category: Medical Plan Mr. Espinal presents with neck pain most likely due to cervical stenosis as well as left shoulder pain due to impingement syndrome and 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 I had a lengthy discussion with the patient regarding the treatment options. He wishes to hold off on surgery for as long as possible. I agree with this plan. The risks and benefits of a left shoulder cortisone injection were discussed at length with the patient. The patient wished to proceed with the injection. He tolerated the injection well. He will continue with his range of motion exercises to prevent stiffness. He will contact me prior to his follow-up appointment in 3 months should any questions or concerns arise. I also referred him to Dr. Alan for further information regarding his chronic neck pain. Feel free to call me at any time should questions regarding his orthopedic management arise. Thank you very much for asking me to see this very friendly gentleman. I spent 21 minutes in reviewing the patient's records and imaging studies, seeing the patient and documenting in the medical record. Orders: Orders AMB Joint Injection/Aspiration 02/23/24 M25.512 - Pain in left shoulder Referrals Neuro Spine Referral M48.02 - Spinal stenosis, cervical region Coding Level of Care Code New Pt Level 3 (07567) Diagnoses Left shoulder pain M25.512 CPT Codes Coding - Large joint: 76470 - Large joint ([id number])
[2024-02-23 08:52] VITALS: BMI 28.5
== END 2024-02-23 09:29 | disposition home or self-care (01) ==
PROVIDERS: PCP Nurse Practitioner Family; Visit Provider Orthopaedic Surgery
DX: M25.512 Pain in left shoulder (principal)
CPT/HCPCS: 20610; 99203

== ENCOUNTER → 2024-02-23 08:41 | Outpatient (BNVA) | payer MEDICARE, OTHER, SELFPAY | PROVIDERS: PCP Nurse Practitioner Family; Visit Provider Orthopaedic Surgery | DX: M25.512 Pain in left shoulder (principal) | CPT/HCPCS: 20610; 99202; J1010 ==

== ENCOUNTER 2024-02-27 11:17 | Outpatient (AMB) | payer MEDICARE, OTHER, SELFPAY ==
--- NOTE | 2024-02-27 07:45 | MHC.PC.OV ---
Intake Visit Reasons: Discuss med for Bone spurr issue/shoulder pain Allergies No Known Allergies [No Known Allergies*] Allergy (Verified 02/23/24 09:01) Medication List - Last Reconciled 02/27/24 by STACEY Gleason-JEFFREY atorvastatin 20 mg PO DAILY diltiazem HCl CD 180 mg PO DAILY finasteride (Proscar) 5 mg PO DAILY 90 days magnesium 200 mg PO DAILY triamterene-hydrochlorothiazid 75-50 mg 1 tab PO DAILY warfarin See Protocol 4MG X3DAYS/ 2MG X4DAYS 90 days Tobacco use date assessed: 10/20/23 Dental Screening Dental Screen Date: 10/20/23 HPI Discuss med for Bone spurr issue/shoulder pain HPI Details Pt is following up with ortho due to left shoulder pain. He had a cortisone injection on 02/22. Pt is seeing neuro spine due to spinal stenosis. He reports pain with numbness to his LUE. Pt also c/o right knee pain. He reports some swelling and reports that it is difficult to bend his knee. Will order XR. [facility] Medical History Tachy-garrison syndrome Hypertension, essential, benign Hyperlipidemia Atrial fibrillation Osteoarthritis Pacemaker (~2008) Current use of 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 therapy Surgical History History of colonoscopy History of eye surgery History of appendectomy Status post left foot surgery (~02/2020) Amputated toe of left foot History of cardiac pacemaker History of cardiac radiofrequency ablation (RFA) Family History Father No problems noted. Mother No problems noted. Social History Housing: House Alcohol intake: current Alcohol intake frequency: a few times a week Alcohol type: beer Patient Tobacco Use Status: Former Tobacco user Years Smoked: 15 e-Cigarette/Vaping Use: Never Used service: No Current occupational status: retired Hearing needs: No Vision needs: Yes (Glasses) Questionnaire Thrive Questionnaire Date Thrive assessed: 04/22/22 CHEN-7 AMB Questionnaire CHEN-7 Date CHEN - 7 assessed: 10/20/23 Source: Developed by Drs. Alan L. JudyMandi lowery Kurt Kroenke and colleagues, with an educational antoni from [employer]. Review of Systems Const Reports as per HPI Physical exam (Primary Care) Tobacco/Smoking Status: Tobacco use Status Tobacco use date assessed 10/20/23 02/27/24 07:46 Patient Tobacco Use Status Former Tobacco user 02/27/24 07:46 e-Cigarette/Vaping Use Never Used 02/27/24 07:46 Thrive Assessment: Date of Thrive Assessment Date Thrive assessed 04/22/22 02/27/24 07:46 Const General: cooperative Orientation/consciousness: patient oriented x3 Neuro General: patient oriented x3 Psych Appearance: grossly normal Mental Status: mental status grossly normal Speech and movement: Clear speech present Affect: normal affect Attitude: cooperative Thought process: Normal thought process present Thought content: Normal thought content present Insight: Good insight present (Psych) Judgement: Good judgement present (Psych) Telehealth Telehealth Telehealth Platform: Telephone Location of provider rendering services: practice address Location of patient: address on file Patient Identification confirmed using: Name, : Yes Telehealth method: voice only Patient verbally consented to treatment: Yes Patient verbally consented to billing insurance company: Yes Patient informed of any privacy concerns related to visit: Yes Minutes spent on Phone/Video with Pt.: 10 Assessment and Plan Assessment & Plan (1) Knee pain: Code(s): M25.569 - Pain in unspecified knee Plan: XR ordered (2) Cervical stenosis of spinal canal: Code(s): M48.02 - Spinal stenosis, cervical region Plan: Seeing neuro spine Plan The patient agreed to the use of a medical malpractice paralegal for this encounter. Scribed for STACEY Le-BC by darian Pate scribe, on 02/27/2024 at 07:45 EST. Orders: Orders XR knee RT 2V Today M25.569 - Pain in unspecified knee Coding Level of Care Code Tele Est Pt Level 3 (18369) Diagnoses Knee pain M25.569 Cervical stenosis of spinal canal M48.02
== END 2024-02-27 11:19 | disposition home or self-care (01) ==
LOC: HO.HMGC 11:17
PROVIDERS: PCP Nurse Practitioner Family; Visit Provider Nurse Practitioner Family
DX: M25.561 Pain in right knee (principal); M48.02 Spinal stenosis, cervical region
CPT/HCPCS: 99441

== ENCOUNTER 2024-02-28 08:57 | Outpatient (REF) | payer MEDICARE, OTHER, SELFPAY ==
--- NOTE | ~2024-02-28 | XR_ITS ---
EXAMINATION: XR KNEE, RIGHT CLINICAL INFORMATION: Pain COMPARISON: None available. TECHNIQUE: 2 views of the right knee. FINDINGS: No fracture or dislocation. No significant suprapatellar joint effusion. Joint spaces are well-maintained especially given patient age. No significant degenerative changes. No localized soft tissue swelling. Vascular calcifications noted. XR/XR knee RT 2V IMPRESSION: Unremarkable radiographs of the right knee.
== END 2024-02-28 08:58 | disposition home or self-care (01) ==
LOC: HO.HMGCX 08:57
PROVIDERS: PCP Nurse Practitioner Family; Visit Provider Nurse Practitioner Family
DX: M25.561 Pain in right knee (principal)
CPT/HCPCS: 73560

== ENCOUNTER → 2024-02-28 23:59 | Outpatient (BNV) | payer MEDICARE, OTHER, SELFPAY ==
--- NOTE | 2024-03-05 11:32 | A.OFFVIS_ITS ---
Intake Visit Reasons: Remote device check- [facility] Allergies No Known Allergies [No Known Allergies*] Allergy (Verified 03/01/24 09:00) [facility] Medical History Tachy-garrison syndrome Hypertension, essential, benign Hyperlipidemia Atrial fibrillation Osteoarthritis Pacemaker (~2008) Current use of 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 therapy Surgical History History of colonoscopy History of eye surgery History of appendectomy Status post left foot surgery (~02/2020) Amputated toe of left foot History of cardiac pacemaker History of cardiac radiofrequency ablation (RFA) Family History Father No problems noted. Mother No problems noted. 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 Good battery life. No new alerts. [id number] Cardiac Device Check, leadless/single lead pacemaker Procedure code (CPT) selection complete Assessment & Plan Assessment & Plan (1) Pacemaker: Onset Date: ~2008 Comment: (Pacemaker SCPP- [facility] - Initial DCPP 2008, replaced/SCPP 2017) Code(s): Z95.0 - Presence of cardiac pacemaker Category: Medical Plan Orders: Orders AMB Cardiac Device Follow-up 02/28/24 Z95.0 - Presence of cardiac pacemaker Coding Level of Care Code Procedure Only Diagnoses Pacemaker Z95.0 CPT Codes Cardiac Device Check - Cardiac Device 1: [id number] Cardiac Device Check, leadless/single lead pacemaker ([id number])
== END ==
PROVIDERS: PCP Nurse Practitioner Family; Visit Provider Internal Medicine Cardiovascular Disease
DX: Z45.018 Encounter for adjustment and management of other part of cardiac pacemaker (principal)
CPT/HCPCS: 93294

== ENCOUNTER 2024-03-01 08:54 | Outpatient (AMB) | payer MEDICARE, OTHER, SELFPAY ==
[2024-03-01 09:08] LABS: Prothrombin Time Whole Bld POC 39.8 sec (11.1-13.5); ~PT, ~INR - Anti Coag Clinic 3.3 (0.9-1.1)
--- NOTE | 2024-03-01 09:09 | MHC.OFFVISCO ---
Intake Intake Visit Reasons: Anticoagulation Allergies No Known Allergies [No Known Allergies*] Allergy (Verified 03/01/24 09:00) Medication List - Last Reconciled 03/01/24 by Lindsay Irwin RN atorvastatin 20 mg PO DAILY diltiazem HCl CD 180 mg PO DAILY finasteride (Proscar) 5 mg PO DAILY 90 days magnesium 200 mg PO DAILY triamterene-hydrochlorothiazid 75-50 mg 1 tab PO DAILY warfarin See Protocol 4MG X3DAYS/ 2MG X4DAYS 90 days Nursing Note INR: 3.3 out of therapeutic range of 2-3 Medications and supplements reviewed No changes in health, diet, medications, or supplements, Denies any signs and symptoms of bleeding or bruising or clotting. Bleeding, bruising, clotting discussed Nutritional guidance given to have a serving of greens today and then balance greens and reds . Pt to have broccoli or spinach Dose: 2mg X 4 days and 4mg X 3 days F/U INR: 4 weeks Patient verbalizes understanding of instructions given Anti-Coag Initial Assessment Social Hx Patient Tobacco Use Status: Former Tobacco user alcohol intake: current Alcohol intake frequency: a few times a week Coding Level of Care Code Est Patient Level 1 Diagnoses Current use of 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 therapy Z79.01 Results AMB INR Fingerstick AMB INR Fingerstick 3.3 Last Edit by Lindsay Irwin RN on 03/01/24 09:07 interface delay Assessment & Plan Assessment & Plan (1) Current use of 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 therapy: Code(s): Z79.01 - nursing home (current) use of 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s Category: Medical
== END 2024-03-01 09:12 | disposition home or self-care (01) ==
LOC: HO.ACS 08:54
PROVIDERS: PCP Nurse Practitioner Family; Visit Provider Internal Medicine
DX: Z79.01 Long term (current) use of 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s (principal)

== ENCOUNTER → 2024-03-01 08:54 | Outpatient (BNVA) | payer MEDICARE, OTHER, SELFPAY | PROVIDERS: PCP Nurse Practitioner Family; Visit Provider Internal Medicine | DX: I48.20 Chronic atrial fibrillation, unspecified (principal); Z79.01 Long term (current) use of 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s; Z51.81 Encounter for therapeutic drug level monitoring | CPT/HCPCS: 85610; 99211 ==

== ENCOUNTER 2024-03-28 12:59 | Outpatient (AMB) | payer MEDICARE, OTHER, SELFPAY ==
--- NOTE | 2024-03-28 13:03 | HO.SPINEOV ---
Intake Visit Reasons: Neck pain Intake Note: Mr. Espinal is here today c/o left sided neck pain and arm numbness. Home Therapy Clinician Required: No Allergies No Known Allergies [No Known Allergies*] Allergy (Verified 03/28/24 13:08) Assessment & Plan Assessment & Plan (1) Cervical pain (neck): Code(s): M54.2 - Cervicalgia Category: Medical Plan Dear Dr. Ybarra, Thank you for referring Zander to our office today. He is a pleasant 88-year-old male who comes in today with a chief of neck pain which has been ongoing the past 40 years. He states in the last 3-5 years it has worsened. He is unsure if it is only his neck or if it is his shoulder/left arm as well. He denies any initial inciting incident, but does state that he has had a ?bone spur in his cervical spine which he has known about for about 40 years. The patient states that he does feel some shooting pain from the base of his neck directly into his right deltoid, but does not have anything that really shoots down his arm. He does have some pain well localized to his left elbow but reports an injury to this elbow where he may have fractured it and never had it properly repaired. 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 He has had injection in the left shoulder completed here at [facility] but has not as of yet had relief from it. He has never had cervical spine injections. PMH: High blood pressure, hyperlipidemia, AFib with pacemaker placement in the late , 2 previous ablation times for AFib prior to pacemaker placement. Social hx: Patient does not smoke, reports no substance use. Medications: Atorvastatin, diltiazem, Proscar, magnesium, triamterene-hydrochlorothiazide. Allergies: NKDA. Physical exam: The patient has 5/5 strength in his upper and lower extremities. He ambulates with the assistance of a cane which he only uses intermittently. He has some sensational changes and reports hypoesthesia in his left palm and right knee. The rest of his sensation is grossly intact. His reflexes are what I would rate as 1+ hypoactive diffusely. (-) bilateral straight leg raise, (-) Sosa's, (-) clonus, (-) Babinski's bilaterally. Imaging review: CT scan completed here at [facility] shows normal spondylosis of the cervical spine for a gentleman of his age. 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 Impression: Zander is a pleasant 88-year-old male who comes in today with a chief complaint of neck pain which he rates as 9/10. He states that he is having a very difficult time especially at night when trying to sleep. Unfortunately he is not a candidate for cervical MRI given that he has a pacemaker implanted. 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 In the absence of an MRI, and in the absence of any myelopathic reflexes or evidence on exam of spinal cord compression I do not believe this is something that should be addressed via surgery at this time. I think the patient would be much better off seeking pain solutions via our colleagues at [facility] in [place]. I encouraged the patient to also follow-up routinely with Dr. Ybarra to continue addressing his left shoulder issues. Thank you for allowing us to care for your patient. The total time spent with this visit with this patient was 45 minutes reviewing history, physical exam, CT imaging review, and implementation of treatment plan or further diagnostic testing Bill Alan MD,PhD [facility] Orders: Referrals Pain Management Referral M54.2 - Cervicalgia Coding Level of Care Code New Pt Level 4 (27198) Diagnoses Cervical pain (neck) M54.2
== END 2024-03-28 13:38 | disposition home or self-care (01) ==
PROVIDERS: PCP Nurse Practitioner Family; Referring Provider Orthopaedic Surgery; Visit Provider Physician Assistant
DX: M54.2 Cervicalgia (principal)
CPT/HCPCS: 99204

== ENCOUNTER → 2024-03-28 12:59 | Outpatient (BNVA) | payer MEDICARE, OTHER, SELFPAY | PROVIDERS: PCP Nurse Practitioner Family; Visit Provider Physician Assistant | DX: M54.2 Cervicalgia (principal) | CPT/HCPCS: 99202 ==

== ENCOUNTER 2024-03-29 08:57 | Outpatient (AMB) | payer MEDICARE, OTHER, SELFPAY ==
[2024-03-29 09:17] LABS: Prothrombin Time Whole Bld POC 34.4 sec (11.1-13.5); ~PT, ~INR - Anti Coag Clinic 2.9 (0.9-1.1)
--- NOTE | 2024-03-29 09:24 | MHC.OFFVISCO ---
Intake Intake Visit Reasons: Anticoagulation Allergies No Known Allergies [No Known Allergies*] Allergy (Verified 03/29/24 09:12) Medication List - Last Reconciled 03/29/24 by Lindsay Irwin, MARY atorvastatin 20 mg PO DAILY diltiazem HCl CD 180 mg PO DAILY finasteride (Proscar) 5 mg PO DAILY 90 days magnesium 200 mg PO DAILY triamterene-hydrochlorothiazid 75-50 mg 1 tab PO DAILY warfarin See Protocol 4MG X3DAYS/ 2MG X4DAYS 90 days Nursing Note INR: 2.9 in therapeutic range of 2-3 Medications and supplements reviewed No changes in health, diet, medications, or supplements, Denies any signs and symptoms of bleeding or bruising or clotting. Bleeding, bruising, clotting discussed Nutritional guidance given Dose: 2mg X 4 days and 4mg X 3 days F/U INR: 4 weeks Patient verbalizes understanding of instructions given Anti-Coag Initial Assessment Social Hx Patient Tobacco Use Status: Former Tobacco user alcohol intake: current Alcohol intake frequency: a few times a week Coding Level of Care Code Est Patient Level 1 Diagnoses Current use of 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 therapy Z79.01 Assessment & Plan Assessment & Plan (1) Current use of 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 therapy: Code(s): Z79.01 - director long term care (current) use of 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s Category: Medical
== END 2024-03-29 09:27 | disposition home or self-care (01) ==
LOC: HO.ACS 08:57
PROVIDERS: PCP Nurse Practitioner Family; Visit Provider Internal Medicine
DX: Z79.01 Long term (current) use of 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s (principal)

== ENCOUNTER → 2024-03-29 08:57 | Outpatient (BNVA) | payer MEDICARE, OTHER, SELFPAY | PROVIDERS: PCP Nurse Practitioner Family; Visit Provider Internal Medicine | DX: I48.20 Chronic atrial fibrillation, unspecified (principal); Z79.01 Long term (current) use of 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s; Z51.81 Encounter for therapeutic drug level monitoring | CPT/HCPCS: 85610; 99211 ==

== ENCOUNTER 2024-04-18 08:46 | Outpatient (AMB) | payer MEDICARE, OTHER, SELFPAY ==
--- NOTE | 2024-04-18 08:50 | MHC.OFFVIS ---
Vital Signs 04/18/24 08:51 Height 6 ft 3 in Weight 228 lb BMI 28.5 Intake Visit Reasons: Right knee pain Intake Note: Zander is an 88 year old male who presents with complaints of progressively worsening right knee pain. The patient describes his pain as achy nature. His pain has gotten worse over the last few months in spite of continued non operative treatments. He has taken Tylenol which gives him only mild relief. He denies any locking or giving way. He has not had a cortisone injection. Allergies No Known Allergies [No Known Allergies*] Allergy (Verified 03/29/24 09:12) Medication List - Last Reconciled 04/18/24 by Juanito Ybarra MD atorvastatin 20 mg PO DAILY diltiazem HCl CD 180 mg PO DAILY finasteride (Proscar) 5 mg PO DAILY 90 days magnesium 200 mg PO DAILY triamterene-hydrochlorothiazid 75-50 mg 1 tab PO DAILY warfarin See Protocol 4MG X3DAYS/ 2MG X4DAYS 90 days PFSH Medical History Tachy-garrison syndrome Hypertension, essential, benign Hyperlipidemia Atrial fibrillation Osteoarthritis Pacemaker (~2008) Current use of 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 therapy Surgical History History of colonoscopy History of eye surgery History of appendectomy Status post left foot surgery (~02/2020) Amputated toe of left foot History of cardiac pacemaker History of cardiac radiofrequency ablation (RFA) Family History Father No problems noted. Mother No problems noted. Social History Housing: House Alcohol intake: current Alcohol intake frequency: a few times a week Alcohol type: beer Patient Tobacco Use Status: Former Tobacco user Years Smoked: 15 e-Cigarette/Vaping Use: Never Used service: No Current occupational status: retired Hearing needs: No Vision needs: Yes (Glasses) Physical Exam Vital Signs: BMI result Body Mass Index 28.5 Const Other: Well-nourished well-developed very friendly male awake alert and oriented x3 in no acute distress Extrem Other: Bilateral lower extremity examination shows good capillary refill, no skin lesions noted, normal sensation light touch Right knee examination shows a minimal effusion, mild crepitus with range of motion, pain with range motion, no instability Office Procedures Joint Injection/Aspiration Joint Injection/Aspiration Primary Site: right knee Prep: site was prepped using aseptic technique Injected: 40 mg of, DepoMedrol and 1% plain lidocaine Procedure: The patient tolerated the procedure well Coding 71700 - Large joint Procedure code (CPT) selection complete Results Reviewed Results Reviewed: X-rays of the patient's right knee show mild to moderate joint space narrowing most significant in the patellofemoral joint, no acute bony abnormalities Assessment & Plan Assessment & Plan (1) Right knee pain: Code(s): M25.561 - Pain in right knee Category: Medical Plan Mr. Espinal presents with right knee pain due to degenerative joint disease. I had a lengthy discussion with the patient regarding the treatment options. The risks and benefits of a right knee cortisone injection were discussed at length with the patient. The patient wished to proceed. He tolerated the injection well. He will continue with his home exercise program. He will contact me prior to his follow-up appointment in 3 months should any questions or concerns arise feel free to call me at any time should questions regarding his orthopedic management arise. I spent 21 minutes in reviewing the patient's records and imaging studies, seeing the patient and documenting in the medical record. Orders: Orders AMB Joint Injection/Aspiration Today M25.561 - Pain in right knee Coding Level of Care Code Est Pt Level 3 (21702) Complex EM visit Add On G2211 Diagnoses Right knee pain M25.561 CPT Codes Coding - 06749 Large joint: 11182 - Large joint ([id number])
[2024-04-18 08:51] VITALS: BMI 28.5
== END 2024-04-18 09:09 | disposition home or self-care (01) ==
PROVIDERS: PCP Nurse Practitioner Family; Visit Provider Orthopaedic Surgery
DX: M25.561 Pain in right knee (principal)
CPT/HCPCS: 20610; 99213

== ENCOUNTER → 2024-04-18 08:46 | Outpatient (BNVA) | payer MEDICARE, OTHER, SELFPAY | PROVIDERS: PCP Nurse Practitioner Family; Visit Provider Orthopaedic Surgery | DX: M25.561 Pain in right knee (principal) | CPT/HCPCS: 20610; 99212; J1010 ==

== ENCOUNTER 2024-04-26 09:14 | Outpatient (AMB) | payer MEDICARE, OTHER, SELFPAY ==
--- NOTE | 2024-04-26 09:25 | MHC.OFFVISCO ---
Intake Intake Visit Reasons: Anticoagulation Allergies No Known Allergies [No Known Allergies*] Allergy (Verified 04/26/24 09:14) Medication List - Last Reconciled 04/26/24 by Moraima Hilton RN atorvastatin 20 mg PO DAILY diltiazem HCl CD 180 mg PO DAILY finasteride (Proscar) 5 mg PO DAILY 90 days magnesium 200 mg PO DAILY triamterene-hydrochlorothiazid 75-50 mg 1 tab PO DAILY warfarin See Protocol 4MG X3DAYS/ 2MG X4DAYS 90 days Nursing Note NO CP,SOB,DIET/MED CHANGES,FALLS OR SX OF BLEEDING. CONTINUE PRESENT DOSE AND FOLLOW-UP IN 4 WEEKS. GOOD UNDERSTANDING OF DOSING INSTR. Anti-Coag Initial Assessment Social Hx Patient Tobacco Use Status: Former Tobacco user alcohol intake: current Alcohol intake frequency: a few times a week Coding Level of Care Code Est Patient Level 1 Diagnoses Current use of 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 therapy Z79.01 Results AMB INR Fingerstick AMB INR Fingerstick 2.0 Last Edit by Moraima Hilton RN on 04/26/24 09:20 Assessment & Plan Assessment & Plan (1) Current use of 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 therapy: Code(s): Z79.01 - [facility] (current) use of 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s Category: Medical
[2024-04-27 02:16] LABS: Prothrombin Time Whole Bld POC 23.7 sec (11.1-13.5)
== END 2024-04-26 09:27 | disposition home or self-care (01) ==
LOC: HO.ACS 09:14
PROVIDERS: PCP Nurse Practitioner Family; Visit Provider Internal Medicine
DX: Z79.01 Long term (current) use of 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s (principal)

== ENCOUNTER → 2024-04-26 09:14 | Outpatient (BNVA) | payer MEDICARE, OTHER, SELFPAY | PROVIDERS: PCP Nurse Practitioner Family; Visit Provider Internal Medicine | DX: I48.20 Chronic atrial fibrillation, unspecified (principal); Z79.01 Long term (current) use of 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s; Z51.81 Encounter for therapeutic drug level monitoring | CPT/HCPCS: 85610; 99211 ==

== ENCOUNTER 2024-04-30 09:22 | Outpatient (AMB) | payer MEDICARE, OTHER, SELFPAY ==
--- NOTE | 2024-04-30 09:24 | A.OFFVIS_ITS ---
Vital Signs 04/30/24 09:25 Height 6 ft 3 in Weight 226 lb 6.636 oz BMI 28.3 BP 120/68 Blood Pressure Location Lt brachial Position Sitting Pulse 81 Pulse Source Pulse Oximeter Intake Visit Reasons: 4 mth f/up Intake Note: 4 mth f/up Virtual Office Assistant Required: No Accompanied by: Daughter Allergies No Known Allergies [No Known Allergies*] Allergy (Verified 04/26/24 09:14) Medication List - Last Reconciled 04/30/24 by Delfino Fry MD atorvastatin 20 mg PO DAILY diltiazem HCl CD 180 mg PO DAILY finasteride (Proscar) 5 mg PO DAILY 90 days magnesium 200 mg PO DAILY triamterene-hydrochlorothiazid 75-50 mg 1 tab PO DAILY warfarin See Protocol 4MG X3DAYS/ 2MG X4DAYS 90 days HPI Comments Details: Pleasant 88 year old gentleman here for follow-up. He was previously seeing Dr. Ku. He has background of atrial fibrillation. He had cardioversion as well as ablation while he was at [facility]. Subsequently developed atrial fibrillation again reportedly. Unclear why he had a pacemaker placed but he had pacemaker placed many years ago. He is asymptomatic from at rial fibrillation point of view. Denies any chest pain shortness of breath. No heart failure episodes. Taking medications regularly. No bleeding issues. ECHO in 2020 did not show any wall motion abnormalities. Ejection fraction was 55-60%. Previously he has complained of some chest discomfort which led to Lexiscan which was normal. 01/04/2024: He returns for follow-up. He underwent surgery for hammertoes and he is walking better at this stage. He has left shoulder pain as well as left- sided neck pain. He also has noticed some fullness on the left side of his chest and there is some breast tissue which he has felt. He is concerned that is this related to any heart issue. He is getting a left shoulder injection tomorrow for shoulder pain. He has not been exercising regularly since the hammertoe surgery and due to shoulder pain and he has noticed that he gets out of breath easily. He has permanent atrial fibrillation and has been treated with a rate control strategy and has been on diltiazem. 04/30/2024: He is here for follow-up. No chest pain or shortness of breath. He has some balance issues and has been walking with cane off and on and I have advised him to be careful and use cane whenever he is walking. He also has been experiencing some dizziness especially when he changes posture. At nighttime and he is getting out of bed he gets lightheaded. He hydrates hi mself well. He is on combination diuretics and diltiazem 180 mg daily. He had stress testing done which showed small area of lateral ischemia in 10/26/2023. This was a preop assessment and he was advised to proceed with hammertoe surgery which he has done successfully. He has no anginal symptoms. [facility] Medical History Tachy-garrison syndrome Hypertension, essential, benign Hyperlipidemia Atrial fibrillation Osteoarthritis Pacemaker (~2008) Current use of 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 therapy Surgical History History of colonoscopy History of eye surgery History of appendectomy Status post left foot surgery (~02/2020) Amputated toe of left foot History of cardiac pacemaker History of cardiac radiofrequency ablation (RFA) Family History Father No problems noted. Mother No problems noted. Social History Housing: House Alcohol intake: current Alcohol intake frequency: a few times a week Alcohol type: beer Patient Tobacco Use Status: Former Tobacco user Years Smoked: 15 e-Cigarette/Vaping Use: Never Used service: No Current occupational status: retired Hearing needs: No Vision needs: Yes (Glasses) Review of Systems Const Denies chills, Denies fatigue, Denies fever(s), Denies frequent falls, Denies weakness, Denies weight gain and Denies weight loss ENT Denies dizziness Card Denies chest pain, Denies leg edema, Denies lightheadedness, Denies palpitations, Denies dyspnea and Denies dyspnea on exertion Resp Denies cough, Denies dyspnea and Denies dyspnea on exertion GI Denies hematochezia Musc Denies abnormal gait, Denies muscle weakness, Denies numbness, Denies radiating pain into limb and Denies tingling Neuro Denies abnormal gait, Denies dizziness, Denies frequent falls, Denies numbness, Denies tingling and Denies weakness Endo Denies fatigue and Denies palpitations Physical Exam Vital Signs: Last Vital Signs Pulse 81 04/30/24 09:25 BP 120/68 04/30/24 09:25 BMI result Body Mass Index 28.3 GENERAL APPEARANCE: in no acute distress, pleasant. NECK: no carotid bruit, no jugular venous distention. SKIN: no suspicious lesions, warm and dry. HEART: no murmurs, irregular rate and rhythm. LUNGS: clear to auscultation bilaterally. ABDOMEN: soft, nontender. EXTREMITIES: no edema. PERIPHERAL PULSES: equal. NEUROLOGIC: No gross deficits, AAO X 3 Assessment & Plan Assessment & Plan (1) Pacemaker: Onset Date: ~2008 Comment: (Pacemaker SCPP- [facility] - Initial DCPP 2008, replaced/SCPP 2017) Code(s): Z95.0 - Presence of cardiac pacemaker Category: Medical (2) Hypertension, essential, benign: Code(s): I10 - Essential (primary) hypertension Category: Medical (3) Atrial fibrillation: Code(s): I48.91 - Unspecified atrial fibrillation Category: Medical Plan 88-year-old gentleman who is here for follow-up. He says background history of chronic atrial fibrillation. He has been treated with a rate control strategy. He also has a permanent pacemaker in the past. He has been on Coumadin for anticoagulation. Clinically not in heart failure. Blood pressure well controlled. He has some postural dizziness. I have advised him to decrease the diltiazem to 120 mg daily. He will continue to hydrate himself as before. Mildly abnormal nuclear perfusion imaging in the past but no anginal symptoms. We had a detailed discussion about this and if he has any symptoms then we will discuss whether further testing should be done. Otherwise same medications. Anticoagulation with Coumadin. Thank you for allowing me to participate in the care of your patient. Please feel free to contact me if you have any questions. Medications: New diltiazem HCl CD 120 mg PO DAILY 60 caps 3RF Discontinued diltiazem HCl CD Discontinued Reason: Doctor's Order 180 mg PO DAILY 90 caps 8RF Coding Level of Care Code Est Pt Level 4 (81104) Diagnoses Pacemaker Z95.0 Hypertension, essential, benign I10 Atrial fibrillation I48.91
[2024-04-30 09:25] VITALS: BP 120/68; PULSE 81; BMI 28.3
== END 2024-04-30 09:58 | disposition home or self-care (01) ==
PROVIDERS: PCP Nurse Practitioner Family; Visit Provider Internal Medicine Cardiovascular Disease
DX: I10 Essential (primary) hypertension (principal); I48.91 Unspecified atrial fibrillation; Z95.0 Presence of cardiac pacemaker
CPT/HCPCS: 99214

== ENCOUNTER → 2024-04-30 09:22 | Outpatient (BNVA) | payer MEDICARE, OTHER, SELFPAY | PROVIDERS: PCP Nurse Practitioner Family; Visit Provider Internal Medicine Cardiovascular Disease | DX: I48.91 Unspecified atrial fibrillation (principal); I10 Essential (primary) hypertension; Z95.0 Presence of cardiac pacemaker | CPT/HCPCS: 99212 ==

== ENCOUNTER 2024-05-14 09:09 | Outpatient (AMB) | payer MEDICARE, OTHER, SELFPAY ==
[2024-05-14 09:44] VITALS: BP 122/80; PULSE 86; TEMP 36.7; O2SAT 96; BMI 28.0
--- NOTE | 2024-05-14 09:44 | MHC.OFFWIV ---
Intake Vital Signs 05/14/24 09:44 Height 6 ft 3 in Weight 224 lb BMI 28.0 BP 122/80 Blood Pressure Location Rt brachial Position Sitting Pulse 86 Pulse Source Pulse Oximeter Temp 98.1 F Temp Source Oral Pulse Oximetry (%) 96 Oxygen Delivery Method Room Air Intake Visit Reasons: Congestion, cold Intake Note: Patient here for congestion, cough that has been present for about 1 week. Patient Tobacco Use Status: Former Tobacco user Allergies No Known Allergies [No Known Allergies*] Allergy (Verified 05/14/24 09:44) Do you need a note to return to daycare/school/sports/work: No HPI Congestion, cold HPI Details This note is constructed using voice recognition software. While every effort has been made to ensure accuracy, machine rigger errors may have been included. The patient is a 88 year old male who presents to the clinic today with cough and runny nose for the past one-week. He denies fever, chills, body aches, shortness of breath, ear pain, sinus congestion, sore throat. He went to the pharmacy and obtained a throat lozenge to help with his symptoms, and it helped some. The cough is nonproductive. He denies chest pain, palpitations. He is chronically on warfarin. [facility] Medical History Tachy-garrison syndrome Hypertension, essential, benign Hyperlipidemia Atrial fibrillation Osteoarthritis Pacemaker (~2008) Current use of 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 therapy Surgical History History of colonoscopy History of eye surgery History of appendectomy Status post left foot surgery (~02/2020) Amputated toe of left foot History of cardiac pacemaker History of cardiac radiofrequency ablation (RFA) Family History Father No problems noted. Mother No problems noted. Social History Housing: House Alcohol intake: current Alcohol intake frequency: a few times a week Alcohol type: beer Patient Tobacco Use Status: Former Tobacco user Years Smoked: 15 e-Cigarette/Vaping Use: Never Used service: No Current occupational status: retired Hearing needs: No Vision needs: Yes (Glasses) Review of Systems Const All systems reviewed & are unremarkable except as noted in HPI and below Physical Exam Vital Signs: Last Vital Signs Temp 98.1 F 05/14/24 09:44 Pulse 86 05/14/24 09:44 BP 122/80 05/14/24 09:44 Pulse Ox 96 05/14/24 09:44 Oxygen Delivery Method Room Air 05/14/24 09:44 BMI result Body Mass Index 28.0 Const General: cooperative, healthy appearing, comfortable and no acute distress Orientation/consciousness: patient oriented x3 Limitations: no limitations HEENT Head: Yes normal to inspection Ears: hearing grossly normal bilaterally, external ears normal and TM's normal bilaterally General nose exam: Normal external nose present, Normal nares present and No nasal discharge present Face and sinus: Yes normal facial exam and Yes sinuses nontender Mouth: Normal oral and palatal mucosa present and moist mucous membranes Throat: Yes tonsils normal, Yes uvula midline and Yes posterior oropharynx abnormal (Erythema) Eyes General: appearance normal, both eyes and all related structures Neck Neck: Yes normal visual inspection Resp Effort & Inspection: normal respiratory effort, able to speak in complete sentences, Actively coughing, no respiratory distress, not tachypneic, no tripod positioning and no use of accessory muscles Auscultation: clear to auscultation bilaterally Cardio Jugular venous distension: no JVD Rate: regular rate Rhythm: regular rhythm Heart sounds: S1 normal heart sound present, S2 normal heart sound present, no click, no gallops, no murmurs and no rubs Skin General skin exam: no rashes or lesions noted, elasticity normal and turgor normal Neuro General: patient oriented x3 Extrem General: Yes normal to inspection and Yes no clubbing, cyanosis or edema Assessment & Plan Assessment & Plan (1) URI (upper respiratory infection): Code(s): J06.9 - Acute upper respiratory infection, unspecified Qualifiers: URI type: unspecified URI Qualified Code(s): J06.9 - Acute upper respiratory infection, unspecified Plan: Viral swab obtained to rule out Covid based on symptoms. Advised mask wearing while symptomatic and quarantine per current CDC guidelines. Reviewed at home support methods including hydration, humidification, vix vapor rub, sinus rinse. Discussed treatment with antiviral therapy for covid with catd including appropriate use and side effects, and need to start medication within 5 day of symptom onset, preferably within 48 hours of symptom onset. Patient is outside of treatment window for paxlovid. Advised follow up with worsening symptoms such as dyspnea at rest, which would require emergent evaluation. Benzonatate prescription sent to requested pharmacy for symptomatic management. Advised patient to try a the line Coricidin HBP for any cold medication to reduce potential elevation in blood pressure with the use of medication. Plan See above for full details and plan. Orders: Orders SARS-CoV2/FLU/RSV Today J06.9 - Acute upper respiratory infection, unspecified Medications: New benzonatate 100 mg PO TID 5 days PRN 15 caps 0RF Cough Coding Level of Care Code Est Pt Level 3 (02820) Diagnoses Upper respiratory tract infection, unspecified type J06.9 URI type: unspecified URI
== END 2024-05-14 10:16 | disposition home or self-care (01) ==
PROVIDERS: PCP Nurse Practitioner Family; Visit Provider Registered Nurse
DX: J06.9 Acute upper respiratory infection, unspecified (principal)

== ENCOUNTER 2024-05-14 09:09 | Outpatient (REF) | payer MEDICARE, OTHER, SELFPAY ==
[2024-05-14 14:00] LABS: Influenza A PCR NEGATIVE (Negative); Influenza B PCR NEGATIVE (Negative); Resp Syncy Virus RNA Qual PCR NEGATIVE (Negative); SARS COV2 PCR INHOUSE NEGATIVE (Negative)
== END 2024-05-14 09:10 | disposition home or self-care (01) ==
LOC: HO.LAB 09:09
PROVIDERS: PCP Nurse Practitioner Family; Visit Provider Registered Nurse
DX: J06.9 Acute upper respiratory infection, unspecified (principal)
CPT/HCPCS: 0241U; 99212

== ENCOUNTER 2024-05-23 09:42 | Outpatient (AMB) | payer MEDICARE, OTHER, SELFPAY ==
[2024-05-23 09:43] VITALS: BMI 28.0
--- NOTE | 2024-05-23 09:43 | A.OFFVIS_ITS ---
Vital Signs 05/23/24 09:43 Height 6 ft 3 in Weight 224 lb BMI 28.0 Intake Visit Reasons: OV- LT shoulder pain, last inj 02/23/24 Intake Note: Zander is a 88 year old male who presents with complaints of left shoulder pain. The patient did have a cortisone injection given into his left shoulder earlier this year. He got fairly good relief from that injection. His pain has returned. Describes his pain as achy in nature. He has tried Tylenol and anti- inflammatory medicines which gave him minimal relief. Wishes to hold off on surgery for as long as possible. Allergies No Known Allergies [No Known Allergies*] Allergy (Verified 05/23/24 09:48) Medication List - Last Reconciled 05/23/24 by Juanito Ybarra MD atorvastatin 20 mg PO DAILY benzonatate 100 mg PO TID PRN 5 days diltiazem HCl CD 120 mg PO DAILY finasteride (Proscar) 5 mg PO DAILY 90 days magnesium 200 mg PO DAILY triamterene-hydrochlorothiazid 75-50 mg 1 tab PO DAILY warfarin See Protocol 4MG X3DAYS/ 2MG X4DAYS 90 days PFSH Medical History Tachy-garrison syndrome Hypertension, essential, benign Hyperlipidemia Atrial fibrillation Osteoarthritis Pacemaker (~2008) Current use of 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 therapy Surgical History History of colonoscopy History of eye surgery History of appendectomy Status post left foot surgery (~02/2020) Amputated toe of left foot History of cardiac pacemaker History of cardiac radiofrequency ablation (RFA) Family History Father No problems noted. Mother No problems noted. Social History Housing: House Alcohol intake: current Alcohol intake frequency: a few times a week Alcohol type: beer Patient Tobacco Use Status: Former Tobacco user Years Smoked: 15 e-Cigarette/Vaping Use: Never Used service: No Current occupational status: retired Hearing needs: No Vision needs: Yes (Glasses) Physical Exam Vital Signs: BMI result Body Mass Index 28.0 Const Other: Well-nourished well-developed very friendly male awake alert and oriented x3 in no acute distress Extrem Other: Bilateral upper extremity examination shows good capillary refill, no skin lesions noted, normal sensation light touch Left shoulder examination shows full range of motion when compared to his right shoulder, positive impingement signs, 4+ out of 5 strength with supraspinatus testing, no instability Office Procedures Joint Injection/Aspiration Joint Injection/Aspiration Primary Site: left shoulder Prep: site was prepped using aseptic technique Injected: 40 mg of, DepoMedrol and 1% plain lidocaine Procedure: The patient tolerated the procedure well Coding 82087 - Large joint Procedure code (CPT) selection complete Assessment & Plan Assessment & Plan (1) Impingement syndrome of left shoulder: Code(s): M75.42 - Impingement syndrome of left shoulder Category: Medical Plan Zander presents with left shoulder pain due to impingement syndrome and 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 I had a lengthy discussion with the patient regarding the treatment options. The risks and benefits of a left shoulder cortisone injection were discussed at length with the patient. The patient wished to proceed. He tolerated the injection well. He will continue with his home exercise program. Will contact me prior to his follow-up appointment in 3 months should any questions or concerns arise. Feel free to call me at any time should questions regarding his orthopedic management arise. I spent 21 minutes in reviewing the patient's records and imaging studies, seeing the patient and documenting in the medical record. Orders: Orders AMB Joint Injection/Aspiration Today M75.42 - Impingement syndrome of left shoulder Coding Level of Care Code Est Pt Level 3 (93004) Complex EM visit Add On G2211 Diagnoses Impingement syndrome of left shoulder M75.42 CPT Codes Coding - 55594 Large joint: 57257 - Large joint ([id number])
== END 2024-05-23 10:07 | disposition home or self-care (01) ==
PROVIDERS: PCP Nurse Practitioner Family; Visit Provider Orthopaedic Surgery
DX: M75.42 Impingement syndrome of left shoulder (principal)
CPT/HCPCS: 20610; 99213

== ENCOUNTER → 2024-05-23 09:42 | Outpatient (BNVA) | payer MEDICARE, OTHER, SELFPAY | PROVIDERS: PCP Nurse Practitioner Family; Visit Provider Orthopaedic Surgery | DX: M75.42 Impingement syndrome of left shoulder (principal) | CPT/HCPCS: 20610; 99212; J1010; J2003 ==

== ENCOUNTER 2024-05-24 09:12 | Outpatient (AMB) | payer MEDICARE, OTHER, SELFPAY ==
--- NOTE | 2024-05-24 09:36 | MHC.OFFVISCO ---
Intake Intake Visit Reasons: Anticoagulation Allergies No Known Allergies [No Known Allergies*] Allergy (Verified 05/24/24 09:25) Medication List - Last Reconciled 05/24/24 by Lindsay Irwin RN atorvastatin 20 mg PO DAILY benzonatate 100 mg PO TID PRN 5 days diltiazem HCl CD 120 mg PO DAILY finasteride (Proscar) 5 mg PO DAILY 90 days magnesium 200 mg PO DAILY triamterene-hydrochlorothiazid 75-50 mg 1 tab PO DAILY warfarin See Protocol 4MG X3DAYS/ 2MG X4DAYS 90 days Nursing Note INR: 2.9 in therapeutic range of 2-3 Medications and supplements reviewed No changes in health, diet, medications, or supplements, Denies any signs and symptoms of bleeding or bruising or clotting. Bleeding, bruising, clotting discussed Nutritional guidance given to have a serving of greens today Dose: keep same dose of 2mg X 4 days and 4mg X 3 days (Mon, Wed, Fri) F/U INR: 4 weeks Patient verbalizes understanding of instructions given Anti-Coag Initial Assessment Social Hx Patient Tobacco Use Status: Former Tobacco user alcohol intake: current Alcohol intake frequency: a few times a week Coding Level of Care Code Est Patient Level 1 Diagnoses Current use of 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 therapy Z79.01 Results AMB INR Fingerstick AMB INR Fingerstick 2.9 Last Edit by Lindsay Irwin RN on 05/24/24 09:32 interface delay Assessment & Plan Assessment & Plan (1) Current use of 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 therapy: Code(s): Z79.01 - care home (current) use of 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s Category: Medical
[2024-05-24 09:37] LABS: ~PT, ~INR - Anti Coag Clinic 2.9 (0.9-1.1)
== END 2024-05-24 09:40 | disposition home or self-care (01) ==
LOC: HO.ACS 09:12
PROVIDERS: PCP Nurse Practitioner Family; Visit Provider Internal Medicine
DX: Z79.01 Long term (current) use of 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s (principal)

== ENCOUNTER → 2024-05-24 09:12 | Outpatient (BNVA) | payer MEDICARE, OTHER, SELFPAY | PROVIDERS: PCP Nurse Practitioner Family; Visit Provider Internal Medicine | DX: I48.20 Chronic atrial fibrillation, unspecified (principal); Z79.01 Long term (current) use of 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s; Z51.81 Encounter for therapeutic drug level monitoring | CPT/HCPCS: 85610; 99211 ==

== ENCOUNTER → 2024-05-28 23:59 | Outpatient (BNV) | payer MEDICARE, OTHER, SELFPAY ==
--- NOTE | 2024-06-11 09:04 | A.OFFVIS_ITS ---
Intake Visit Reasons: Remote device check- [facility] Allergies No Known Allergies [No Known Allergies*] Allergy (Verified 05/24/24 09:25) [facility] Medical History Tachy-garrison syndrome Hypertension, essential, benign Hyperlipidemia Atrial fibrillation Osteoarthritis Pacemaker (~2008) Current use of 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 therapy Surgical History History of colonoscopy History of eye surgery History of appendectomy Status post left foot surgery (~02/2020) Amputated toe of left foot History of cardiac pacemaker History of cardiac radiofrequency ablation (RFA) Family History Father No problems noted. Mother No problems noted. Social History Housing: House Alcohol intake: current Alcohol intake frequency: a few times a week Alcohol type: beer Patient Tobacco Use Status: Former Tobacco user Years Smoked: 15 e-Cigarette/Vaping Use: Never Used service: No Current occupational status: retired Hearing needs: No Vision needs: Yes (Glasses) Office Procedures Cardiac Device Check Cardiac Device Check Details: Espinal pacemaker Good battery life, Stable sensing and lead impedance. Episode of high ventricular rate recorded-episode of atrial fibrillation. 49208-SF Cardiac Device Check, leadless/single lead pacemaker Procedure code (CPT) selection complete Assessment & Plan Assessment & Plan (1) Pacemaker: Onset Date: ~2008 Comment: (Pacemaker SCPP- [facility] - Initial DCPP 2008, replaced/SCPP 2017) Code(s): Z95.0 - Presence of cardiac pacemaker Category: Medical Plan Coding Level of Care Code Procedure Only Diagnoses Pacemaker Z95.0 CPT Codes Cardiac Device Check - Cardiac Device 1: 26692-NU Cardiac Device Check, leadless/single lead pacemaker ([id number])
== END ==
PROVIDERS: PCP Nurse Practitioner Family; Visit Provider Internal Medicine Cardiovascular Disease
DX: I48.91 Unspecified atrial fibrillation (principal); Z95.0 Presence of cardiac pacemaker
CPT/HCPCS: 93294

== ENCOUNTER 2024-06-28 09:05 | Outpatient (AMB) | payer MEDICARE, OTHER, SELFPAY ==
[2024-06-28 09:18] LABS: Prothrombin Time Whole Bld POC 37.2 sec (11.1-13.5); ~PT, ~INR - Anti Coag Clinic 3.1 (0.9-1.1)
--- NOTE | 2024-06-28 09:29 | MHC.OFFVISCO ---
Intake Intake Visit Reasons: Anticoagulation Allergies No Known Allergies [No Known Allergies*] Allergy (Verified 06/28/24 09:12) Medication List - Last Reconciled 06/28/24 by Karina Epperson RN atorvastatin 20 mg PO DAILY benzonatate 100 mg PO TID PRN 5 days diltiazem HCl CD 120 mg PO DAILY finasteride (Proscar) 5 mg PO DAILY 90 days magnesium 200 mg PO DAILY triamterene-hydrochlorothiazid 75-50 mg 1 tab PO DAILY warfarin See Protocol 4MG X3DAYS/ 2MG X4DAYS 90 days Nursing Note INR: 3.1 almost therapeutic range Medications and supplements reviewed had back injection last month for pain - he states he had minimal to no relief and that taking extra strength tyelol helps the most right now- he is aware that it can raise the INR and will eat more greens when taking it No changes in health, diet, medications, or supplements, Denies any signs and symptoms of bleeding or bruising or clotting. Bleeding, bruising, clotting discussed Nutritional guidance given - increase greens when taking extra strength tylenol Dose: keep same dose for now 4mg mwf/ 2mg x 4 days - if INR still elevated next visit will decrease weekly dose F/U INR: 1 month Patient verbalizes understanding of instructions given Anti-Coag Initial Assessment Social Hx Patient Tobacco Use Status: Former Tobacco user alcohol intake: current Alcohol intake frequency: a few times a week Questionnaires HAS-BLED Does the patient had uncontrolled Hypertension?: No Does the patient have renal disease?: No Does the patient have liver disease?: No Does the patient have a history of stroke?: No Has the patient had major bleeding or predisposition to bleeding?: Yes Does the patient have labile INRs?: No Is the patient over 65 years of age?: Yes Is the patient on medications that gives them a predisposition to bleeding?: Yes Does the patient use alcohol?: No HAS-BLED Score: 3 CHADSVASC Age: 75 or over Gender: Male Does the patient have a history of CHF?: No Does the patient have a history of Hypertension?: Yes Does the patient have a history of Stroke/TIA/Thromboembolism?: No Does the patient have a history of Vascular Disease (prior NH, PAD or aortic plaque)?: Yes Does the patient have a history of Diabetes?: No CHADS VACS Score: 4 Angela Prediction Score Rsk VTE Active Cancer: No Previous VTE, excluding superficial vein thrombosis: No Reduced mobility: No Already known Thrombophilic Condition: No With-in last month Trauma and/or Surgery: No Elderly 70 year or older: Yes Heart and/or Respiratory Failure: No Acute Myocardial infarction and/or Ischemic Stroke: No Acute Infection and/or Rheumatologic Disorder: No Obesity (BMI 30 or greater): No Ongoing Hormonal Treatment: No Score: 1 Angela Score less than 4; Low Risk of VTE Angela Score 4 or greater; High Risk of VTE Coding Level of Care Code Est Patient Level 1 Diagnoses Current use of 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 therapy Z79.01 Results AMB INR Fingerstick AMB INR Fingerstick 3.1 Last Edit by Karina Epperson RN on 06/28/24 09:20 manual entry Assessment & Plan Assessment & Plan (1) Current use of 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 therapy: Code(s): Z79.01 - USP (current) use of 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s Category: Medical
== END 2024-06-28 09:34 | disposition home or self-care (01) ==
LOC: HO.ACS 09:05
PROVIDERS: PCP Nurse Practitioner Family; Visit Provider Internal Medicine
DX: Z79.01 Long term (current) use of 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s (principal)

== ENCOUNTER → 2024-06-28 09:05 | Outpatient (BNVA) | payer MEDICARE, OTHER, SELFPAY | PROVIDERS: PCP Nurse Practitioner Family; Visit Provider Internal Medicine | DX: I48.20 Chronic atrial fibrillation, unspecified (principal); Z79.01 Long term (current) use of 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s; Z51.81 Encounter for therapeutic drug level monitoring | CPT/HCPCS: 85610; 99211 ==

== ENCOUNTER 2024-07-18 09:31 | Outpatient (REF) | payer MEDICARE, OTHER, SELFPAY ==
--- NOTE | ~2024-07-18 | XR_ITS ---
EXAMINATION: XR LEFT KNEE CLINICAL INFORMATION: Pain in left knee M25.562. COMPARISON: None available. TECHNIQUE: Three views of the left knee. FINDINGS: No visible acute fracture or dislocation.. Alignment is anatomic. Joint spaces are maintained. Tiny marginal patellar spurs. 2 small ossifications projected over the intercondylar region/posterior knee, could reflect loose bodies. Small suprapatellar joint fluid. No suspicious soft tissue findings. XR/XR knee LT 3V IMPRESSION: No acute osseous abnormality. Possible small loose bodies. Study is assigned/presented to me for interpretation on Aug 24, 2024 Electronically signed by: Antonio Hillman MD 08/24/2024 06:03 PM EST
== END 2024-07-18 09:32 | disposition home or self-care (01) ==
LOC: HO.HOSX 09:31
PROVIDERS: PCP Nurse Practitioner Family; Visit Provider Orthopaedic Surgery
DX: M25.562 Pain in left knee (principal)
CPT/HCPCS: 73562; 99212

== ENCOUNTER 2024-07-18 09:31 | Outpatient (AMB) | payer MEDICARE, OTHER, SELFPAY ==
--- NOTE | 2024-07-18 09:33 | MHC.OFFVIS ---
Vital Signs 07/18/24 09:45 Height 6 ft 3 in Weight 224 lb BMI 28.0 Intake Visit Reasons: New prob- Left knee pain s/p fall one week ago Intake Note: Zander is an 88 year old male who presents with complaints of left knee pain s/p fall one week ago. The patient states that he was snow blowing his driveway when he tripped and fell onto his left knee. He denies any other injuries. He has been weight-bearing as tolerated. He takes Tylenol which gives him fairly good relief. Allergies No Known Allergies [No Known Allergies*] Allergy (Verified 07/18/24 09:44) Medication List - Last Reconciled 07/18/24 by Juanito Ybarra MD atorvastatin 20 mg PO DAILY benzonatate 100 mg PO TID PRN 5 days diltiazem HCl CD 120 mg PO DAILY finasteride (Proscar) 5 mg PO DAILY 90 days magnesium 200 mg PO DAILY triamterene-hydrochlorothiazid 75-50 mg 1 tab PO DAILY warfarin See Protocol 4MG X3DAYS/ 2MG X4DAYS 90 days PFS Medical History Tachy-garrison syndrome Hypertension, essential, benign Hyperlipidemia Atrial fibrillation Osteoarthritis Pacemaker (~2008) Current use of 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 therapy Surgical History History of colonoscopy History of eye surgery History of appendectomy Status post left foot surgery (~02/2020) Amputated toe of left foot History of cardiac pacemaker History of cardiac radiofrequency ablation (RFA) Family History Father No problems noted. Mother No problems noted. Social History Housing: House Alcohol intake: current Alcohol intake frequency: a few times a week Alcohol type: beer Patient Tobacco Use Status: Former Tobacco user Years Smoked: 15 e-Cigarette/Vaping Use: Never Used service: No Current occupational status: retired Hearing needs: No Vision needs: Yes (Glasses) Physical Exam Vital Signs: BMI result Body Mass Index 28.0 Const Other: Well-nourished well-developed very friendly male awake alert and oriented x3 in no acute distress Extrem Other: Left knee examination shows an abrasion along his tibial tubercle, no erythema, full active extension and flexion to 120 degrees with minimal discomfort, no instability Results Reviewed Results Reviewed: X-rays of the patient's left knee taken today show mild diffuse joint space narrowing, no acute bony abnormalities Assessment & Plan Assessment & Plan (1) Left knee pain: Code(s): M25.562 - Pain in left knee Category: Medical Plan Mr. Espinal presents with intermittent left knee pain after falling onto his left knee due to soft tissue and bony contusion. He can continue weight-bearing as tolerated. He will continue with his activity modifications. He will continue to keep a clean dressing over his left knee abrasion. He will contact me prior to his follow-up appointment in 2 months should any questions or concerns arise. Feel free to call me at any time should questions regarding his orthopedic management arise. I spent 21 minutes in reviewing the patient's records and imaging studies, seeing the patient and documenting in the medical record. Orders: Orders XR knee LT 3V Today M25.562 - Pain in left knee Coding Level of Care Code Est Pt Level 3 (57132) Complex EM visit Add On G2211 Diagnoses Left knee pain M25.562
[2024-07-18 09:45] VITALS: BMI 28.0
== END 2024-07-18 10:15 | disposition home or self-care (01) ==
PROVIDERS: PCP Nurse Practitioner Family; Visit Provider Orthopaedic Surgery
DX: M25.562 Pain in left knee (principal)
CPT/HCPCS: 99213; G2211

== ENCOUNTER 2024-07-25 11:02 | Outpatient (AMB) | payer MEDICARE, OTHER, SELFPAY ==
[2024-07-25 11:17] VITALS: BP 120/80; PULSE 73; TEMP 37; O2SAT 98; BMI 28.0
--- NOTE | 2024-07-25 11:17 | AM.OFFWIN_ITS ---
Intake Vital Signs 07/25/24 11:17 Height 6 ft 3 in Weight 224 lb BMI 28.0 BP 120/80 Blood Pressure Location Rt brachial Position Sitting Pulse 73 Pulse Source Pulse Oximeter Temp 98.6 F Temp Source Oral Pulse Oximetry (%) 98 Oxygen Delivery Method Room Air Intake Visit Reasons: EP Fall, wound on lt knee/leg, hot, swollen Patient Tobacco Use Status: Former Tobacco user Allergies No Known Allergies [No Known Allergies*] Allergy (Verified 07/25/24 11:17) Do you need a note to return to daycare/school/sports/work: No HPI HPI Comments History of Present Illness Details History of Present Illness The patient is an 88-year-old male presenting with swelling and suspected infection of the leg following a fall. Approximately six days ago, the patient slipped while operating a snowblower during a snow-clearing activity. At the time of the fall, the patient's knee was crunched beneath him, causing difficulty in getting up. Initial self-treatment included the application of ice, bacitracin ointment, and bandaging. An x-ray performed subsequently showed no fractures. The patient's condition has progressed, with the daughter noting increased swelling, redness, and warmth in the affected area. The patient reports feeling shocks and experiencing pain, and difficulty walking due to the swelling. The patient has a significant bruise visible on the side and back of the leg. The individual expresses that the contralateral leg also swells upon standing. An appointment with another doctor for a different issue noted swelling without associated warmth or redness at the time. Physical Exam General: Cooperative, healthy appearing, comfortable, no acute distress and well developed Orientation: Patient oriented x3 Limitations: Difficulty walking due to leg injury, ambulating with cane Head: Normal to inspection Ears: Hearing grossly normal bilaterally Nose: Normal external nose present Face and sinus: Normal facial exam Eyes: Appearance normal, both eyes and all related structures Neck: Normal visual inspection and Yes full ROM Respiratory: Normal respiratory effort and able to speak in complete sentences. Skin: Erythema, edema, and warmth with central scab 1cm round noted on the left knee; bruising present posterior calf left Neuro: Patient oriented x3 Extremities: Swollen leg with difficulty in movement, bruising observed [facility] Medical History Tachy-garrison syndrome Hypertension, essential, benign Hyperlipidemia Atrial fibrillation Osteoarthritis Pacemaker (~2008) Current use of 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 therapy Surgical History (Reviewed 04/30/24 @ 09:29 by Tayler Garcia [facility]) History of colonoscopy History of eye surgery History of appendectomy Status post left foot surgery (~02/2020) Amputated toe of left foot History of cardiac pacemaker History of cardiac radiofrequency ablation (RFA) Family History (Reviewed 04/30/24 @ 09:29 by Tayler Garcia [facility]) Father No problems noted. Mother No problems noted. Social History (Reviewed 04/30/24 @ 09:29 by Tayler Garcia [facility]) Housing: House Alcohol intake: current Alcohol intake frequency: a few times a week Alcohol type: beer Patient Tobacco Use Status: Former Tobacco user Years Smoked: 15 e-Cigarette/Vaping Use: Never Used service: No Current occupational status: retired Hearing needs: No Vision needs: Yes (Glasses) Review of Systems Const All systems reviewed & are unremarkable except as noted in HPI and below Physical Exam Vital Signs: Last Vital Signs Temp 98.6 F 07/25/24 11:17 Pulse 73 07/25/24 11:17 BP 120/80 07/25/24 11:17 Pulse Ox 98 07/25/24 11:17 Oxygen Delivery Method Room Air 07/25/24 11:17 BMI result Body Mass Index 28.0 Assessment & Plan Assessment & Plan (1) Cellulitis: Code(s): L03.90 - Cellulitis, unspecified Qualifiers: Site of cellulitis: extremity Site of cellulitis of extremity: lower extremity Laterality: left Qualified Code(s): L03.116 - Cellulitis of left lower limb Plan: Plan - Initiate antibiotic therapy with Cephalexin to address suspected cellulitis; take every six hours for seven days. As pt has no hx of MRSA will not RX Doxy for now, will add if no improvement in symptoms in 3-4 days. Daughter will message me on portal to send RX - Recommend the application of ice to help reduce inflammation and swelling. - Advise the use of Aquaphor to maintain skin moisture in the affected area and avoid additional ointments that may impede skin healing. - Encourage continuation of Tylenol for pain management. - Ensure that the patient's warfarin therapy is monitored and remains stable with the concurrent use of Cephalexin. - Instruct to time antibiotic doses during waking hours to avoid falls or sleep disruption. Patient was informed and verbally consented to the use of an ambient scribe for clinic note documentation during this visit. Medications: New cephalexin 500 mg PO Q6H 7 days 28 caps 0RF Coding Level of Care Code Est Pt Level 3 (35616) Diagnoses Cellulitis of left lower extremity L03.116 Site of cellulitis: extremity Site of cellulitis of extremity: lower extremity Laterality: left
== END 2024-07-25 11:40 | disposition home or self-care (01) ==
PROVIDERS: PCP Nurse Practitioner Family; Visit Provider Physician Assistant
DX: L03.116 Cellulitis of left lower limb (principal)

== ENCOUNTER → 2024-07-25 11:02 | Outpatient (BNVA) | payer MEDICARE, OTHER, SELFPAY | PROVIDERS: PCP Nurse Practitioner Family; Visit Provider Physician Assistant | DX: L03.116 Cellulitis of left lower limb (principal) | CPT/HCPCS: 99212 ==

== ENCOUNTER 2024-07-26 10:05 | Outpatient (AMB) | payer MEDICARE, OTHER, SELFPAY ==
[2024-07-26 10:15] LABS: Prothrombin Time Whole Bld POC 33.8 sec (11.1-13.5); ~PT, ~INR - Anti Coag Clinic 2.8 (0.9-1.1)
--- NOTE | 2024-07-26 10:22 | MHC.OFFVISCO ---
Intake Intake Visit Reasons: Anticoagulation Allergies No Known Allergies [No Known Allergies*] Allergy (Verified 07/26/24 10:06) Medication List - Last Reconciled 07/26/24 by Karina Epperson RN atorvastatin 20 mg PO DAILY cephalexin 500 mg PO Q6H 7 days diltiazem HCl CD 120 mg PO DAILY finasteride (Proscar) 5 mg PO DAILY 90 days magnesium 200 mg PO DAILY triamterene-hydrochlorothiazid 75-50 mg 1 tab PO DAILY warfarin See Protocol 4MG X3DAYS/ 2MG X4DAYS 90 days Nursing Note INR: 2.8 in therapeutic range Medications and supplements reviewed FELL SNOW BLOWING !!!! LEFT KNEE LAC ON CEPHALEXIN Q6 HOURS X 7 DAYS - CAN RAISE THE INR Denies any signs and symptoms of bleeding or bruising or clotting. Bleeding, bruising, clotting discussed Nutritional guidance given - MAKE SURE TO EAT AN EXTRA GREEN AT THE END OF NEXT WEEK WHEN THE ANTBX CAN RAIE YOUR INR Dose: 4MG X 3 DAYS / 2MG X 4 DAYS THIS WEEK THEN DECREASE NEXT WEEK TO 4MG X 1 DAY/ 2MG X 6 DAYS THEN RESUME USUAL DOSE F/U INR: 2 WEEKS Patient verbalizes understanding of instructions given Anti-Coag Initial Assessment Social Hx Patient Tobacco Use Status: Former Tobacco user alcohol intake: current Alcohol intake frequency: a few times a week Coding Level of Care Code Est Patient Level 1 Diagnoses Current use of 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 therapy Z79.01 Assessment & Plan Assessment & Plan (1) Current use of 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 therapy: Code(s): Z79.01 - senior care (current) use of 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s Category: Medical
== END 2024-07-26 10:27 | disposition home or self-care (01) ==
LOC: HO.ACS 10:05
PROVIDERS: PCP Nurse Practitioner Family; Visit Provider Internal Medicine
DX: Z79.01 Long term (current) use of 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s (principal)

== ENCOUNTER → 2024-07-26 10:05 | Outpatient (BNVA) | payer MEDICARE, OTHER, SELFPAY | PROVIDERS: PCP Nurse Practitioner Family; Visit Provider Internal Medicine | DX: I48.20 Chronic atrial fibrillation, unspecified (principal); Z79.01 Long term (current) use of 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s; Z51.81 Encounter for therapeutic drug level monitoring | CPT/HCPCS: 85610; 99211 ==

== ENCOUNTER 2024-08-02 08:45 | Outpatient (AMB) | payer MEDICARE, OTHER, SELFPAY ==
--- NOTE | 2024-08-02 09:38 | AM.OFFWIN_ITS ---
Intake Vital Signs 08/02/24 09:42 Height 6 ft 3 in Weight 224 lb BMI 28.0 BP 122/84 Blood Pressure Location Lt brachial Position Sitting Pulse 74 Pulse Source Pulse Oximeter Pulse Oximetry (%) 98 Oxygen Delivery Method Room Air Intake Visit Reasons: EP LT leg recheck Intake Note: Patient here for left knee wound and shocking pain and red/black spots on toes and swelling. Patient Tobacco Use Status: Former Tobacco user Allergies No Known Allergies [No Known Allergies*] Allergy (Verified 08/02/24 09:45) HPI EP LT leg recheck HPI Details This note is constructed using voice recognition software. While every effort has been made to ensure accuracy, email campaign specialist errors may have been included. The patient is a 88 year old male who presents to the clinic today with Leg swelling and pain bilaterally. He reports he felt this was related to a fall where he struck his left knee, and was treated for cellulitis following that. He continued to have swelling of the leg, and felt that the swelling was related to fall, however the swelling is. He denies shortness of breath, chest pain, palpitations. He has a history of AFib which he is treated on Coumadin. 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 PENDING SALE TO [facility] Medical History Tachy-garrison syndrome Hypertension, essential, benign Hyperlipidemia Atrial fibrillation Osteoarthritis Pacemaker (~2008) Current use of 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 therapy Surgical History History of colonoscopy History of eye surgery History of appendectomy Status post left foot surgery (~02/2020) Amputated toe of left foot History of cardiac pacemaker History of cardiac radiofrequency ablation (RFA) Family History Father No problems noted. Mother No problems noted. Social History Housing: House Alcohol intake: current Alcohol intake frequency: a few times a week Alcohol type: beer Patient Tobacco Use Status: Former Tobacco user Years Smoked: 15 e-Cigarette/Vaping Use: Never Used service: No Current occupational status: retired Hearing needs: No Vision needs: Yes (Glasses) Review of Systems Const All systems reviewed & are unremarkable except as noted in HPI and below Physical Exam Vital Signs: Last Vital Signs Pulse 74 08/02/24 09:42 BP 122/84 08/02/24 09:42 Pulse Ox 98 08/02/24 09:42 Oxygen Delivery Method Room Air 08/02/24 09:42 BMI result Body Mass Index 28.0 Const Other: Well-nourished well-developed very friendly male awake alert and oriented x3 in no acute distress General: cooperative, healthy appearing, comfortable, no acute distress and well developed Limitations: no limitations Neck Neck: Yes normal visual inspection and Yes full ROM Resp Effort & Inspection: normal respiratory effort and able to speak in complete sentences Auscultation: clear to auscultation bilaterally Cardio Jugular venous distension: no JVD Palpation: normal PMI Rate: regular rate Heart sounds: Gallop heart sound present S4 gallop Extrem Other: Left knee examination shows an abrasion along his tibial tubercle, no erythema, full active extension and flexion to 120 degrees with minimal discomfort, no instability. Bilateral lower extremity +4 edema to mid lower leg. Assessment & Plan Assessment & Plan (1) Leg edema: Code(s): R60.0 - Localized edema Plan: Given patient's gallop, and bilateral lower extremity edema, I am concerned that he may have heart failure. However to NSAIDs due in office, which he has declined. I reviewed with his PCP, who agreed that he should the best evaluated urgently the emergency room. I spoke with patient and his daughter who agreed with the plan. The declined EMS, ambulance transfer, and his daughter wound drive him to the hospital advised patient's daughter to heat treat puller dial 911 should develop any chest pain dyspnea, which they agreed. A contact of the hospital for report for expected arrival. Plan See above for full details and plan. Coding Level of Care Code Est Pt Level 4 (94616) Diagnoses Leg edema R60.0
[2024-08-02 09:42] VITALS: BP 122/84; PULSE 74; O2SAT 98; BMI 28.0
== END 2024-08-02 10:33 | disposition home or self-care (01) ==
PROVIDERS: PCP Nurse Practitioner Family; Visit Provider Registered Nurse
DX: R60.0 Localized edema (principal)

== ENCOUNTER 2024-08-02 11:25 | Inpatient (IN) | payer MEDICARE, OTHER, SELFPAY ==
--- NOTE | ~2024-08-02 | XR_ITS ---
EXAMINATION: XR CHEST CLINICAL INFORMATION: shortness of breath COMPARISON: None available. TECHNIQUE: 2 views of the chest were obtained. FINDINGS: Dual lead left chest wall pacer in place, leads extending into the right atrium and right ventricle. Leads appear contiguous. The cardiac size is enlarged, consistent with mild cardiomegaly. The aorta is calcified. The hilar silhouettes are normal. Lungs are diffusely hyperaerated with flattened hemidiaphragms and hyperlucency, findings consistent with COPD. There are subtle foci of parenchymal scarring noted. There is apical pleural thickening bilaterally. No definite superimposed active disease. There is no focal osseous or soft tissue abnormality. There are spinal degenerative changes. XR/XR chest 2V IMPRESSION: 1. COPD. Cardiomegaly. 2. Dual-lead pacer device in place. 3. Pleural plaques suspected. Within these confines, no definite superimposed active disease. If there is high clinical suspicion for pneumonia, CT of the chest may be of benefit. Electronically signed by: Drake Hancock MD 08/02/2024 12:57 PM DIA
--- NOTE | ~2024-08-02 | US_ITS ---
EXAMINATION: US TRIPLEX LOWER EXTREMITY, LEFT CLINICAL INFORMATION: Left lower extremity edema and pain. COMPARISON: 12/13/2022, 08/18/2022. TECHNIQUE: Color-flow triplex imaging with spectral analysis and compression Doppler were performed on the left lower extremity. FINDINGS: Respiratory variation, normal compression and augmented flow are noted throughout the left lower extremity. The visualized common femoral vein, superficial femoral vein, profunda femoral vein, popliteal vein and midcalf peroneal and posterior tibial venous segments show no evidence of deep venous thrombosis. There is no Shea's cyst. US/US venous duplex LE LT IMPRESSION: No evidence of deep venous thrombosis involving the left lower extremity. Electronically signed by: Drake Hancock MD 08/02/2024 01:52 PM DIA
--- NOTE | ~2024-08-02 | XR_ITS ---
EXAMINATION: XR FOOT, LEFT CLINICAL INFORMATION: Pain, fall. COMPARISON: Left foot radiographs dated 04/16/2019. TECHNIQUE: AP, lateral, and oblique views of the left foot. FINDINGS: Resection of the second and third middle phalangeal head and distal phalanges is noted. No acute fracture or dislocation. No periosteal reaction or cortical erosion. 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 Plantar calcaneal spur. XR/XR foot LT min 3V IMPRESSION: 1. No acute fracture or dislocation. 2. Severe degenerative arthritis at the first metatarsophalangeal joint and hallux sesamoids, unchanged. 3. Plantar calcaneal spur. Electronically signed by: Lucian Wesley MD 08/02/2024 02:42 PM DIA JOHNSON
--- NOTE | 2024-08-02 11:33 | ECG_ITS ---
Test Reason : tachy Blood Pressure : / mmHG Vent. Rate : 114 BPM Atrial Rate : 000 BPM P-R Int : 000 ms QRS Dur : 082 ms QT Int : 340 ms P-R-T Axes : 000 014 -23 degrees QTc Int : 468 ms Atrial fibrillation with rapid ventricular response with premature ventricular or aberrantly conducted complexes ST & T wave abnormality, consider inferior ischemia Abnormal ECG When compared with ECG of 23-JUN-2023 06:07, Nonspecific T wave abnormality now evident in Lateral leads Referred By: Generic ED Physician Electronically Signed By:NORIS HERRERA MD
--- NOTE | 2024-08-02 11:44 | ED_ITS ---
HPI - General Adult General Chief complaint: Extremity Problem Stated complaint: rapid heart beat swelling of legs sent by pcp Time Seen by Provider: 08/02/24 12:01 Source: patient and old records reviewed Mode of arrival: ambulatory Limitations: no limitations History of Present Illness ED Provider: TIAGO CURTIS narrative: 88 yo male with PMH of cellulitis, PAD, HLD, HTN, PPM, afib on dilt and coumadin here with c/o recent L knee infection s/p hitting the knee has been on cephalexin and last dose was today notes leg is more swollen and red. He denies fevers and chills. He went to PCP today and his leg swelling is much worse he denies CP/SOB he is in afib with RVR. He is compliant with medications and never misses his coumadin. He otherwise is feeling fine. He thinks he is in CHF - he is on triamterene/HCTZ. complaint: leg swelling Onset (ago): day(s) (few) Location: left, right and lower extremity Radiation: non-radiation Severity: moderate Relieving factors: none Exacerbating factors: none Associated symptoms: other (rash on both legs) Treatments prior to arrival: other (finished cephalexin) Related Data Home Medications ?Medication ?Instructions ?Recorded ?Confirmed magnesium 200 mg tablet 200 mg PO DAILY 10/17/23 07/26/24 Previous Rx's ?Medication ?Instructions ?Recorded finasteride 5 mg tablet (Proscar) 5 mg PO DAILY 90 days #90 tabs 09/22/23 triamterene 75 1 tab PO DAILY #90 tabs 02/15/24 mg-hydrochlorothiazide 50 mg tablet diltiazem HCl 120 mg 120 mg PO DAILY #60 caps 04/30/24 capsule,extended release 24 hr atorvastatin 20 mg tablet 20 mg PO DAILY #90 tabs 05/10/24 warfarin 2 mg tablet See Rx Instructions .Route 07/23/24 .COMPLEX 90 days #120 tabs Allergies Allergy/AdvReac Type Severity Reaction Status Date / Time No Known Allergies Allergy Verified 08/02/24 11:48 [No Known Allergies*] Review of Systems 2 Review of Systems: Constitutional : No Fever, No Chills ENT/Mouth : No sore throat, No Rhinorrhea Eyes: No Eye Pain, No Swelling, No Redness Cardiovascular : No Chest Pain, No SOB, pos leg edema Respiratory : No Cough, No Sputum Gastrointestinal : No Nausea, No Vomiting, No Diarrhea, No abdominal Pain Genitourinary : No Dysuria, No Hematuria Musculoskeletal : No joint pain, No Myalgias, No Joint Swelling Skin : pos Skin Lesions, positive skin rash Neuro : No Weakness, No Numbness, No Headache Psych : No Anxiety, No Depression All other systems reviewed and are negative PMFSH Past Medical History Attestation statement: The following information was validated with the patient. Source: old records reviewed Medical History Tachy-garrison syndrome Hypertension, essential, benign Hyperlipidemia Atrial fibrillation Osteoarthritis Pacemaker (~2008) Current use of 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 therapy Surgical History History of colonoscopy History of eye surgery History of appendectomy Status post left foot surgery (~02/2020) Amputated toe of left foot History of cardiac pacemaker History of cardiac radiofrequency ablation (RFA) Family History Family History Father No problems noted. Mother No problems noted. Social History Social History Housing: House Alcohol intake: current Alcohol intake frequency: a few times a week Alcohol type: beer Patient Tobacco Use Status: Former Tobacco user Years Smoked: 15 Smoked in Last 30 Days: No e-Cigarette/Vaping Use: Never Used Use of substances other than those prescribed or required for medical reasons: No Advance Directives: Yes Advance Directives on File: Yes Advance Directives Date on File: 09/27/22 service: No Current occupational status: retired Hearing needs: No Vision needs: Yes (Glasses) Physical Exam ED Vital Signs: Vital Signs - 24 hr 08/02/24 11:45 08/02/24 12:06 Temperature 98.6 F 98.0 F Pulse Rate 94 101 H Respiratory Rate 16 18 Blood Pressure 116/56 L 118/68 Pulse Oximetry 97 Oxygen Delivery Method Room Air Room Air BMI result Body Mass Index 27.5 Appearance: Alert. Oriented X3. No acute distress. Eyes: Pupils equal, round and reactive to light. ENT: Pharynx normal. Neck: Normal inspection. Neck supple. CVS: irregular rate heart rate and rhythm. Pulses normal. Respiratory: No respiratory distress. Breath sounds mild rales in both bases Abdomen: Soft and nontender. Skin: Skin warm and dry. Normal skin color. Extremities: 2-3+ pitting edema both legs below prox nicole, L knee soft boggy bursa leg from knee down is warm and pink to touch - he has pulses intact, dark scab over bursa area no drainage no crepitus. R leg is cool and no rash noted. brusing on dorsum of 2/3/4th toes NV intact Neuro: Oriented X 3. No motor deficit. No sensory deficit. Course Course Course Narrative: RME, this is a rapid medical exam performed by Bola Murray please refer to primary provider for complete H&P- 88 year old male with history of a fib on Coumadin, hypertension, hyperlipidemia presents for evaluation of leg swelling and rapid heartbeat. He had an EKG ordered on arrival which showed AFib at 114 beats minute. Plan for labs including BNP, INR we will also get a chest x-ray. Medications Administered Discontinued Medications Generic Name Dose Route Start Last Admin Trade Name Freq PRN Reason Stop Dose Admin Piperacillin Sod/Tazobactam 50 mls @ 100 mls/hr 08/02/24 12:18 08/02/24 13:24 Sod 3.375 gm/ Sodium Chloride IV 08/02/24 12:47 100 mls/hr ONCE ONE Administration Medical Decision Making Medical Decision Making [facility] Narrative: 88 yo male with PMH of cellulitis, PAD, HLD, HTN, PPM, afib on dilt and coumadin here with c/o leg swelling and has noticeable rash on LLE - he denies CP/SOB, he is in afib with RVR though up and down and 80s on my exam. He denies any symptoms states he is compliant with all medications - I have ordered labs, EKG, CXR, DVT study despite INR of LLE, empiric zosyn given concern for cellulitis Differential Diagnosis Differential Diagnoses: The differential diagnosis associated with the presentation includes CHF, cellulitis, infected prepatellar bursa Admission/Observation Consideration of admission/observation: Escalation of care including admission/observation considered admit for IV abx given no response to oral cephalexin IV diuresis Consult Healthcare Provider Management of the patient was discussed with: Hospitalist (will admit) Lab Data [facility] Lab Attestation statement: I reviewed the patient's lab results. 08/02/24 11:53 08/02/24 11:53 Labs: Lab Results 08/02/24 08/02/24 Range/Units 11:53 13:08 WBC 5.9 (4.8-10.8) X10*3/uL RBC 4.21 L (4.60-5.80) X10*6/uL Hgb 13.2 L (14.0-18.0) g/dl Hct 39.2 L (42.0-52.0) % MCV 93.1 (80.0-98.0) fL MCH 31.4 (27.0-33.0) pg MCHC 33.7 (31.0-36.0) g/dl RDW 14.8 (11.0-16.0) % Plt Count 214 (160-400) X10*3/uL MPV 9.4 (9.4-12.4) fL Immature Gran % (Auto) 0.3 (0.0-0.4) % Neut % (Auto) 71.3 (45-73) % Lymph % (Auto) 20.6 (20-40) % Davis % (Auto) 6.3 (2-11) % Eos % (Auto) 1.2 (0-4) % Baso % (Auto) 0.3 (0-2) % Lymph # (Auto) 1.2 (1.2-4.9) X10*3/uL Davis # (Auto) 0.4 (0.1-1.2) X10*3/uL Eos # (Auto) 0.1 (0.0-0.4) X10*3/uL Baso # (Auto) 0.0 (0.0-0.2) X10*3/uL Abs Immat Gran (auto) 0.02 (0.00-0.03) X10*3/uL Absolute Neuts (auto) 4.2 (2.0-8.3) x10*3/uL Absolute Nucleated RBC 0.000 (0.0-0.012) X10*3/uL Nucleated RBC % (auto) 0.0 (0.0-0.2) /100WBC PT 33.0 H (10.9-12.4) SEC INR 2.8 H (0.9-1.1) Sodium 137 (135-145) mmol/L Potassium 3.3 (3.3-5.1) mmol/L Chloride 100 (96-108) mmol/L Carbon Dioxide 33 H (22-29) mmol/L Anion Gap 7 L (12-20) BUN 18 H (9-16) mg/dL Creatinine 0.89 (0.5-1.4) mg/dL Estim Creat Clear Calc 68.5 Estimated GFR > 60 Random Glucose 124 H (60-115) mg/dL Lactic Acid 1.7 (0.5-2.0) mmol/L Calcium 9.1 (8.4-10.2) mg/dL Total Bilirubin 1.0 (0.0-1.0) mg/dL AST 32 (5-37) U/L ALT 21 (0-40) U/L Alkaline Phosphatase 31 L (39-117) U/L Troponin I High Sens 2.8 (<3.5-35.0) ng/L Total Protein 7.1 (6.5-8.0) g/dL Albumin 3.9 (3.5-5.0) g/dL Lipase 15 (8-78) U/L Independent Interpretation I performed an independent interpretation of an: EKG, Plain X-Ray (cardiomegaly) and Ultrasound (no DVT) Interpretation: Rate: 114 Rhythm: afib [place]: left Normal QRS complex. ST T wave : no ADONIS, ST depressions lateral leads qTC: 468 prior studies: changed from 2022 The study has been interpreted contemporaneously by me. . Radiology Impression Discussion of test interpretation with radiology: I have reviewed the radiologist's reading. Independent Historian Clinical information obtained from an independent historian. History obtained from or confirmed by: Other (daughter) External Record Review External record reviewed: Outpatient record Discharge Plan Discharge Clinical Impression: Lower extremity edema, Cellulitis Patient Disposition: Admitted As Inpatient Prescriptions: No Action triamterene-hydrochlorothiazid 75-50 mg tablet 1 tab PO DAILY Qty: 90 1RF atorvastatin 20 mg tablet 20 mg PO DAILY Qty: 90 1RF warfarin 2 mg tablet See Rx Instructions .ROUTE .COMPLEX 90 Days Qty: 120 8RF Protocol: Dose Management Condition: Tuesday (Week One) Dose/Route: 2 mg Instruction: 1 x 2 mg tablet Condition: Tuesday Dose/Route: 4 mg Instruction: 2 x 2 mg tablets Condition: Tuesday Dose/Route: 2 mg Instruction: 1 x 2 mg tablet Condition: Tuesday Dose/Route: 4 mg Instruction: 2 x 2 mg tablets Condition: Dose/Route: 2 mg Instruction: 1 x 2 mg tablet Condition: Tuesday Dose/Route: 4 mg Instruction: 2 x 2 mg tablets Condition: Tuesday Dose/Route: 2 mg Instruction: 1 x 2 mg tablet Condition: Tuesday (Week Two) Dose/Route: 2 mg Instruction: 1 x 2 mg tablet Condition: Tuesday Dose/Route: 2 mg Instruction: 1 x 2 mg tablet Condition: Tuesday Dose/Route: 2 mg Instruction: 1 x 2 mg tablet Condition: Tuesday Dose/Route: 4 mg Instruction: 2 x 2 mg tablets Condition: Dose/Route: 2 mg Instruction: 1 x 2 mg tablet Condition: Tuesday Dose/Route: 2 mg Instruction: 1 x 2 mg tablet Condition: Tuesday Dose/Route: 2 mg Instruction: 1 x 2 mg tablet Protocol Text: Adjustment Start Date: 07/26/24 INR Value: Pending INR Date: 07/26/24 Recheck Date: 08/09/24 Additional Instructions: REVIEW FOOD LIST WEEKLY- ESPECIALLY DURING THE HOLIDAY - CONT TO EAT A MIX OF FRUITS AND VEGETABLES Rx Instructions: 4MG X3DAYS/ 2MG X4DAYS magnesium 200 mg tablet 200 mg PO DAILY finasteride [Proscar] 5 mg tablet 5 mg PO DAILY 90 Days Qty: 90 3RF diltiazem HCl 120 mg capsule,extended release 24hr 120 mg PO DAILY Qty: 60 3RF Print Language: Micronesian
[2024-08-02 11:45] VITALS: BP 116/56; PULSE 94; RESP 16; TEMP 37; O2SAT 97; BMI 27.5
[2024-08-02 12:01] LABS: MANUAL DIFF FLAG NO
[2024-08-02 12:03] LABS: Basophils Percent Auto 0.3 % (0-2); Eosinophils Absolute Auto 0.1 X10*3/uL (0.0-0.4); Eosinophils Percent Auto 1.2 % (0-4); Hematocrit 39.2 % (42.0-52.0); Hemoglobin 13.2 g/dl (14.0-18.0); Imm Gran Abs Auto 0.02 X10*3/uL (0.00-0.03); Imm Gran Pct Auto 0.3 % (0.0-0.4); Lymphocytes Absolute Auto 1.2 X10*3/uL (1.2-4.9); Lymphocytes Percent Auto 20.6 % (20-40); Mean Corpuscular HGB Conc 33.7 g/dl (31.0-36.0); Mean Corpuscular Hemoglobin 31.4 pg (27.0-33.0); Mean Corpuscular Volume 93.1 fL (80.0-98.0); Mean Platelet Volume 9.4 fL (9.4-12.4); Monocytes Absolute Auto 0.4 X10*3/uL (0.1-1.2); Monocytes Percent Auto 6.3 % (2-11); Neutrophils Absolute Auto 4.2 x10*3/uL (2.0-8.3); Neutrophils Percent Auto 71.3 % (45-73); Platelet Count 214 X10*3/uL (160-400); Red Blood Count 4.21 X10*6/uL (4.60-5.80); Red Cell Distribution Width 14.8 % (11.0-16.0); White Blood Count 5.9 X10*3/uL (4.8-10.8)
[2024-08-02 12:06] VITALS: BP 118/68; PULSE 101; RESP 18; TEMP 36.7
[2024-08-02 12:10] LABS: INTERNATIONAL NORM RATIO 2.8 (0.9-1.1)
--- NOTE | 2024-08-02 12:15 | PC.NURSE ---
in WC to bed 19. Daughter notes BLE pirtting edema for months but since yesterday daughter noted it was much worse. Has scabbed wound left knee from a week ago. Checks INR weekly. No recent head injuries. denies CP and SOB. Plus 3 pitting edema BLE to knees. LS CTA. controlled a fib on monitor.
[2024-08-02 12:17] LABS: Alanine Aminotransferase 21 U/L (0-40); Albumin Level 3.9 g/dL (3.5-5.0); Alkaline Phosphatase 31 U/L (39-117); Anion Gap 7 (12-20); Aspartate Amino Transferase 32 U/L (5-37); Blood Urea Nitrogen 18 mg/dL (9-16); Calcium 9.1 mg/dL (8.4-10.2); Carbon Dioxide 33 mmol/L (22-29); Chloride 100 mmol/L (96-108); Creatinine Clr Calc Pharmacy 68.5; Estimated Glomerular Filt Rate > 60; Glucose Random 124 mg/dL (60-115); Lipase 15 U/L (8-78); Potassium 3.3 mmol/L (3.3-5.1); Sodium 137 mmol/L (135-145); Total Protein 7.1 g/dL (6.5-8.0)
[2024-08-02 12:23] LABS: Troponin-I High Sensitivity 2.8 ng/L (<3.5-35.0)
[2024-08-02] MEDS: Piperacillin Sodium/Tazobactam 3.375 GM in 0.9 % Sodium Chloride 50 ML IV ×2 (13:24→17:21)
[2024-08-02 13:33] LABS: Lactic Acid 1.7 mmol/L (0.5-2.0)
[2024-08-02 14:00] VITALS: BP 133/81; PULSE 80; RESP 18; TEMP 37.1; O2SAT 96
--- NOTE | 2024-08-02 14:37 | PM.IMHP ---
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 Pt with chronic lower leg edema, though has been increasing the past few days, especially since yesterday when patient's daughter noticed right ankle was significantly more swollen than normal. Patient complains of bilateral ankle pressure and pain with movement, as well as some numbness and tingling. Denies any previous diagnosis of CHF. Last year patient apparently had significant arterial and venous evaluation of lower extremities prior to bilateral hammertoe correction surgery. Reports no significant disease in lower extremity circulatory system. Denies shortness or breath or difficulty breathing. Chronic cough at baseline. No orthopnea. Patient also comes in for increasing left lower extremity erythema. 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 Presented to urgent care 1 week later due to redness, swelling, and warmth to the affected area and was prescribed a 7 day course of cephalexin 500 mg p.o. Q 6 H. patient reports took antibiotics to completion, though has noticed erythema has continued to spread all the way down his ankle and to his foot. Denies fever and chills. Denies significant left knee pain. In the ED pt was tachycardic up to 101 otherwise vitals stable. Labs were grossly unremarkable around baseline for patient. No leukocytosis. Stable H&H. No significant electrolyte abnormalities. Renal function baseline. Hepatic function baseline. BNP pending. Initial troponin negative at 2.8. CXR showed COPD and cardiomegaly, as well as suspected pleural plaques but no definite superimposed active disease. Left lower extremity venous duplex negative for DVT. Left foot negative for acute fracture or dislocation. EKG demonstrated AFib RVR of 114 and PVCs and nonspecific ST and T-wave abnormalities. Pt was treated with furosemide 40 mg IV, vanc, and Zosyn. Pt will be admitted to the hospital for significantly increasing lower leg edema concerning for new onset CHF as well as for left lower extremity cellulitis that failed outpatient therapy. Review of Systems Review of Systems: Negative except for that which is stated in the [facility] Medical History Tachy-garrison syndrome Hypertension, essential, benign Hyperlipidemia Atrial fibrillation Osteoarthritis Pacemaker (~2008) Current use of 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 therapy Family History Father No problems noted. Mother No problems noted. Surgical History History of colonoscopy History of eye surgery History of appendectomy Status post left foot surgery (~02/2020) Amputated toe of left foot History of cardiac pacemaker History of cardiac radiofrequency ablation (RFA) Social History Housing: House Alcohol intake: current Alcohol intake frequency: a few times a week Alcohol type: beer Patient Tobacco Use Status: Former Tobacco user Years Smoked: 15 Smoked in Last 30 Days: No e-Cigarette/Vaping Use: Never Used Use of substances other than those prescribed or required for medical reasons: No Advance Directives: Yes Advance Directives on File: Yes Advance Directives Date on File: 09/27/22 service: No Current occupational status: retired Hearing needs: No Vision needs: Yes (Glasses) Meds Allergies Allergy/AdvReac Type Severity Reaction Status Date / Time No Known Allergies Allergy Verified 08/02/24 11:48 [No Known Allergies*] Active Medications: Current Medications Vancomycin HCl (Vancomycin/Ns) 2,000 mg in 500 mls @ 250 mls/hr IV ONCE ONE Stop: 08/02/24 16:23 Pharmacy Consult (Consult Rx Vancomycin Dosing) 1 each MISCELLANE DAILY PRN PRN Reason: Consult order Home Medications ?Medication ?Instructions ?Recorded ?Confirmed ?Last Taken ?Type magnesium 200 mg tablet 200 mg PO DAILY 10/17/23 08/02/24 08/01/24 History atorvastatin 20 mg tablet 20 mg PO BEDTIME 08/02/24 08/02/24 08/01/24 History diltiazem HCl 120 mg 120 mg PO BEDTIME 08/02/24 08/02/24 08/01/24 History capsule,extended release 24 hr warfarin 2 mg tablet 2 mg PO MOWEFR@1800 08/02/24 08/02/24 07/31/24 History warfarin 4 mg tablet 4 mg PO MARIE@1800 08/02/24 08/02/24 08/01/24 History Physical Exam Vital Signs and Narrative: Vital Signs: Last Vital Signs Temp 98.0 F 08/02/24 12:06 Pulse 101 H 08/02/24 12:06 Resp 18 08/02/24 12:06 BP 118/68 08/02/24 12:06 Pulse Ox 97 08/02/24 11:45 O2 Del Method Room Air 08/02/24 12:06 BMI result Body Mass Index 27.5 Constitutional: Alert, in no acute distress. Mental Status: Oriented to person, place and time. Eyes: Pupils are equal, round, and reactive to light. Ear, Nose, and Throat: Oropharynx clear, mucous membranes moist. Ears and nose without deformities. Trachea midline. Respiratory: Clear to auscultation bilaterally. No wheezing, rales, or rhonchi. Cardiovascular: Irregularly irregular rhythm. No murmurs, rubs, or gallops. Gastrointestinal: Abdomen soft, non-tender, non-distended. Normal bowel sounds. Neurologic: Cranial nerves II-XII are grossly intact bilaterally. No focal neurological deficits. Moves all extremities spontaneously. Skin: Warm, dry. Musculoskeletal: No cyanosis or clubbing. Extremities: 3-4+ bilateral pitting edema, worse in right ankle. Left distal knee with large scab without drainage. Left lower extremity with erythema and warmth extending from knee to foot. See picture below. Psychiatric: Normal mood and affect. Results Labs 08/02/24 11:53 08/02/24 11:53 Labs: Laboratory Results - last 24 hr 08/02/24 08/02/24 11:53 13:08 MCV 93.1 MCH 31.4 MCHC 33.7 RDW 14.8 Plt Count 214 MPV 9.4 Immature Gran % (Auto) 0.3 Neut % (Auto) 71.3 Lymph % (Auto) 20.6 [place] % (Auto) 6.3 Eos % (Auto) 1.2 Baso % (Auto) 0.3 Lymph # (Auto) 1.2 [place] # (Auto) 0.4 Eos # (Auto) 0.1 Baso # (Auto) 0.0 Abs Immat Gran (auto) 0.02 Absolute Neuts (auto) 4.2 Absolute Nucleated RBC 0.000 Nucleated RBC % (auto) 0.0 PT 33.0 H INR 2.8 H Anion Gap 7 L Estim Creat Clear Calc 68.5 Estimated GFR > 60 Random Glucose 124 H Lactic Acid 1.7 Calcium 9.1 Total Bilirubin 1.0 AST 32 ALT 21 Alkaline Phosphatase 31 L Troponin I High Sens 2.8 Total Protein 7.1 Albumin 3.9 Lipase 15 Imaging Radiologist's Impressions: Impressions Chest X-Ray 08/02/24 12:29 IMPRESSION: 1. COPD. Cardiomegaly. 2. Dual-lead pacer device in place. 3. Pleural plaques suspected. Within these confines, no definite superimposed active disease. If there is high clinical suspicion for pneumonia, CT of the chest may be of benefit. Electronically signed by: Drake Hancock MD 08/02/2024 12:57 PM EST RP Venous Duplex 08/02/24 13:18 IMPRESSION: No evidence of deep venous thrombosis involving the left lower extremity. 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 Pt will be admitted to the hospital for significantly increasing lower leg edema concerning for new onset CHF as well as for left lower extremity cellulitis that failed outpatient therapy. Left lower extremity edema Patient with 3 to 4+ pitting edema worsened in the past few days No SOB, TAYLOR, orthopnea, CXR negative pulmonary edema Concerning for CHF BNP pending as in-house machine is currently down and labs are now a send out Echocardiogram Will treat with Lasix 40mg IV daily Monitor I/O, daily weight, lytes Low-salt diet Consider cardiology consult pending BNP and echo results Monitor on telemetry Left lower extremity cellulitis Original knee injury two weeks ago while snowblowing Started on cephalexin 1 week ago Now with worsening erythema, warmth, and swelling extending to foot No sepsis: No fever, tachypnea, or leukocytosis; lactic acid WNL, no hypotension Patient is started on broad-spectrum antibiotics in the ED Will treat with vanc and Zosyn, started 08/02/2024 Persistent AFib Continue diltiazem, warfarin INR currently therapeutic Monitor INR daily HLD Continue statin HTN Continue triamterene-hydrochlorothiazide BPH Continue finasteride Full Code Attending:?Dr. Escobar DVT Prophylaxis: On warfarin Pt will require a hospitalization of at least two nights for treatment of?both left lower extremity cellulitis that failed outpatient therapy had increasing lower leg edema concerning for new onset CHF. Patient will require in hospital level care for treatment with IV antibiotics, IV diuretics, as well as close monitoring of labs and additional workup CHF. Quality Stroke Does the patient have a stroke diagnosis?: No VTE Prior VTE?: No VTE Risk Level:: Medical - moderate - high VTE Device Contraindication: Treatment Not Indicated VTE Drug Contraindication: N/A - Med Ordered
[2024-08-02 15:27] VITALS: BP 133/81
[2024-08-02] MEDS: Furosemide 40 MG/4 ML VIAL IVPUSH ×2 (15:27→17:20)
[2024-08-02] MEDS: vancomycin/NS 2,000 MG/500 ML PLAST..BAG 250 MG IV (15:28)
[2024-08-02 15:42] VITALS: BP 136/82; PULSE 94; RESP 18; TEMP 36.7; O2SAT 97
--- NOTE | 2024-08-02 15:51 | PHA.PROG ---
Admission Date/Time: Indication:Skin Weight in k.7 kg Adjusted body weight in Kg: [employer] body weight in Kg: Obesity Dosing Indication % IBW: Serum Creatinine - Last 168 Hours 08/02/24 11:53 Creatinine 0.89 Estimated CrCl and GFR - Last 168 Hours 08/02/24 11:53 Estim Creat Clear Calc 68.5 Estimated GFR > 60 Vancomycin Loading Dose: 2000mg Current Vancomycin Dosing Regimen: 750mg q12h Vancomycin Monitoring using AUC goal of 400 - 600 range with trough as surrogate marker: 425 mg/L Date and Time for next Vancomycin Level to be drawn: 08/03 @1500 Pharmacist Comments on Vancomycin Plan: Projected trough = 14.6 mg/L, first level before 3rd dose due to load and dose timing. May not be at steady state yet, but wanted to monitor closely due to pt's age. Vancomycin dosing will take advantage of [employer] as a clinical decision support tool that uses Bayesian modeling to calculate individual patient's pharmacokinetic parameters and forecast the patient's drug concentration time course with the target goal AUC 24 range of 400 - 600 mg/L/hr.
[2024-08-02 17:06] VITALS: BMI 27.8
[2024-08-02] MEDS: Flu Vacc TS2024-25(6mos up)/PF 0.5 ML SYRINGE IM (18:24)
[2024-08-02] MEDS: Warfarin Sodium 4 MG TABLET PO (18:24)
[2024-08-02 18:50] LABS: B Type Natriuretic Peptide 63 pg/mL (<100)
[2024-08-02] MEDS: dilTIAZem HCL CD 120 MG CAP.ER.DEG PO (20:11)
[2024-08-02] MEDS: Atorvastatin Calcium 20 MG TABLET PO (20:11)
[2024-08-02] MEDS: 0.9 % Sodium Chloride Flush 3 ML SYRINGE IVFLUSH (20:12)
[2024-08-02 20:35] VITALS: BP 123/70; PULSE 85; RESP 16; TEMP 36.3; O2SAT 96
[2024-08-03] VITALS (9 sets, daily range): BP systolic 107–117; BP diastolic 51–84; PULSE 72–121; RESP 16–20; TEMP 36.3–37; O2SAT 94–98; BMI 27.1
[2024-08-03] MEDS: Piperacillin Sodium/Tazobactam 3.375 GM in 0.9 % Sodium Chloride 50 ML IV ×5 (00:14→23:29)
[2024-08-03] MEDS: vancomycin HCL 750 MG in 0.9 % Sodium Chloride 250 ML 265 MG IV ×2 (05:35→18:18)
[2024-08-03 06:26] LABS: INTERNATIONAL NORM RATIO 2.8 (0.9-1.1); Prothrombin Time 32.9 SEC (10.9-12.4)
[2024-08-03 06:40] LABS: Anion Gap 13 (12-20); Blood Urea Nitrogen 16 mg/dL (9-16); Carbon Dioxide 36 mmol/L (22-29); Chloride 94 mmol/L (96-108); Creatinine Clr Calc Pharmacy 58.1; Estimated Glomerular Filt Rate > 60; Glucose Random 97 mg/dL (60-115); Potassium 2.9 mmol/L (3.3-5.1); Sodium 140 mmol/L (135-145)
--- NOTE | 2024-08-03 07:00 | CA_ITS ---
Transthoracic Echocardiogram Patient (Last, First, Middle): Zander Espinal L Gender: Male Date of : 1935 Age: 88 Procedure Date: 08/03/2024 Procedure Type: Transthoracic Echocardiogram Location: [facility] Height: 190.5 cm Weight: 100.7 kg BSA: 2.29 m2 Heart Rate: 91 bpm BP: 110 / 78 mmHg Power Shovel Engineer: Referring MD: Ramya BARLOW Symptoms: ?CHF Study Quality: Adequate ECG Rhythm: Atrial Fibrillation Conclusions: - Normal left ventricular size and systolic function. There is mildly increased left ventricular wall thickness. The visually estimated ejection fraction is between 55-60%. - The basal inferior segment is akinetic. - Normal right ventricular cavity size and systolic function. - There is mild dilatation of the ascending aorta measuring 3.80 cm. Findings Left Ventricle Normal left ventricular size and systolic function. There is mildly increased left ventricular wall thickness. The visually estimated ejection fraction is between 55-60%. There is evidence of regional wall motion abnormalities. Diastolic function is indeterminate on the basis of available data. Wall Motion Rest Echo Findings The basal inferior segment is akinetic. Right Ventricle Normal right ventricular cavity size and systolic function. Atria The left atrium is normal in size. The right atrium is normal in size. Aortic Valve The aortic valve structure and function is likely normal. There is no aortic valve stenosis. There is trace (trivial) aortic valve regurgitation. Mitral Valve The mitral valve appears normal. There is no mitral valve regurgitation. There is no mitral valve stenosis. Pulmonic Valve The pulmonic valve is normal. There is no pulmonic valve regurgitation. Tricuspid Valve Normal tricuspid valve structure. There is no tricuspid valve regurgitation. Normal right atrial pressure. There is no evidence of pulmonary hypertension. Great Vessels There is mild dilatation of the ascending aorta measuring 3.80 cm. Venous The inferior vena cava is normal in size and collapses greater than 50% with inspiration. Pericardium/Pleural Prominent epicardial adipose tissue noted. There is no evidence of pericardial effusion. Prior Study Comparison Changes noted compared to prior study dated: 11/08/2023. basal inferior akinesis. Measurements 2D Linear Measurements IVSd: 1.28 0.6-0.9/0.6-1.0 cm LVIDd: 3.88 3.9-5.3/4.2-5.9 cm LVIDd Index: 1.69 2.4-3.2/2.2-3.1 cm/m2 LVIDs: 2.61 2.0-3.6 cm LVPWd: 1.25 0.7-1.1 cm LA Diam: 3.20 2.7-3.8/3.0-4.0 cm LAIDs Index: 1.40 1.5-2.3 cm/m2 LV Mass: 213.16 67-162/88-224 g LV Mass Index: 93.08 43-95/49-115 g/m2 LVOT Diam: 2.00 3.0+(-)1.3 cm 2D Systolic Function EF 4C: 59.40 >55% EF 2C: 51.80 >55% EF BiP: 55.10 >55% Mitral Valve MV Pk E: 0.95 MV Decel Time: 158.00 E'Lateral: 8.49 E'Medial: 6.20 E/E' Med: 15.30 E/E' Lat: 11.20 PHT: 46.00 MVA PHT: 4.78 Decel Dundy: 6.02 Aortic Valve AoV Pk Jorgito: 1.25 AoV Mn Jorgito: 0.77 AoV VTI: 0.22 AoV Pk Grad: 6.00 Aov Mn Grad: 3.00 AMBER Cont.VTI: 1.84 LVOT LVOT Pk Jorgito: 0.71 LVOT Mn Jorgito: 0.45 LVOT VTI: 0.13 LVOT Pk Grad: 2.00 LVOT Mn Grad: 1.00 LVOT Diam: 2.00 LVOT Area: 3.14 Diastolic Function MV Pk E: 0.95 E'Medial: 6.20 E/E' Med: 15.30 E' Laterial: 8.49 E/E' Lat: 11.20 Right Ventricle TAPSE (mm): 27.00 TVS' Jorgito: 11.40 Tricuspid Valve TR Pk Jorgito: 2.01 TR Pk Grad: 16.00 RA Press: 3.00 RVSP: 19.00 Great Vessels Aorta Sinus of Valsalva: 3.40 2.0-3.5 cm Ao Asc: 3.80 2.1-3.4 cm Pulmonary Valve PV Pk Jorgito: 0.73 Peak PV Grad: 2.00 Updated in Other Vendor System with Status of Final Delfino Fry MD electronically signed on 08/04/2024 5:25:26 PM with status of Final
--- NOTE | 2024-08-03 07:20 | PHA.MEDREC ---
Pharmacy Consult ? Medication Reconciliation Pharmacy has completed the medication reconciliation Spoke with pt and at bedside, and confirmed medication. provided a list of medications. Pt last took warfarin 08/01/24, and takes warfarin 2mg on ,We,Fr; takes 4mg on the remaining days of the week.
[2024-08-03] MEDS: Potassium Chloride ER 20 MEQ TAB.ER.PRT 40 MEQ PO (07:28)
[2024-08-03] MEDS: Triamterene/HCTZ 75/50 TABLET 1 TAB PO (08:02)
[2024-08-03] MEDS: Finasteride 5 MG TABLET PO (08:02)
[2024-08-03] MEDS: 0.9 % Sodium Chloride Flush 3 ML SYRINGE IVFLUSH ×2 (08:02→15:19)
[2024-08-03] MEDS: Magnesium Oxide 400 MG TABLET 200 MG PO (08:02)
[2024-08-03] MEDS: Furosemide 40 MG/4 ML VIAL IVPUSH (08:09)
--- NOTE | 2024-08-03 09:27 | MHC.CM.PN ---
CM attempted to meet with Patient but he was receiving a bedside diagnostic procedure. CM spoke with /Sammie and Daughter/Janeth who joined the conversation at [phone] and IMM was addressed (original will be mailed certified letter to Sammie and a copy has been placed on the chart). Patient lives in a house with his and he uses both a cane and a walker to assist with mobility. Patient may benefit from a PT Eval to assist with disposition; CM has initiated and will follow for dc planning. PCP is Dr. Romain Vizcarra and Daughter will transport to home.
[2024-08-03] MEDS: Potassium Chloride Packet 20 MEQ PACKET 40 MEQ PO ×2 (10:11→19:23)
[2024-08-03] MEDS: Metoprolol Tartrate 5 MG/5 ML VIAL IVPUSH (10:12)
--- NOTE | 2024-08-03 10:45 | MHC.CM.PN ---
CM has assisted Patient with the completion of a HCP; he has named his Daughter/Janeth as his Primary Agent and his /Sammie as the Alternate Agent.
[2024-08-03 15:21] LABS: Vancomycin Random 12.3 mcg/mL (15-20)
--- NOTE | 2024-08-03 15:28 | HE.PHANOTE ---
Re Vanco Random =12.3mg/L. Will continue same dose, projected to end up with an AUC of 488mg/L and trough of 17.6mg/L so will continue with 750mg q12h and recheck after a couple more doses.
--- NOTE | 2024-08-03 15:29 | HO.PM.IMPN ---
Subjective Subjective Date of Service: 08/03/24 Interval History: Notes some improvement overnight Review of Systems Denies chest pain Denies shortness of breath Denies nausea vomiting diarrhea Denies fever chills Physical Exam Vital Signs: Vital Signs: Last Vital Signs Temp 98.0 F 08/03/24 11:10 Pulse 79 08/03/24 11:10 Resp 18 08/03/24 11:10 BP 113/63 08/03/24 11:10 Pulse Ox 96 08/03/24 11:10 O2 Del Method Room Air 08/03/24 11:10 BMI result Body Mass Index 27.1 Const: Other: Awake alert oriented x3 in no acute distress Resp: Other: Clear to auscultation bilaterally no rales rhonchi wheezes Cardio: Other: No S4; positive S1-S2; no S3 murmurs rubs or gallops GI: Other: Soft nontender nondistended normoactive bowel sounds Extrem: Other: No edema bilaterally Objective Data Active Medications Acetaminophen (Acetaminophen 325 Mg Tablet) 650 mg PO Q6H PRN PRN Reason: Pain, Mild 1-3,fever,headache Atorvastatin Calcium (Atorvastatin Calcium 20 Mg Tablet) 20 mg PO BEDTIME [facility] Last Admin: 08/02/24 20:11 Dose: 20 mg Documented By: KANNAN Benzonatate (Benzonatate 100 Mg Capsule) 100 mg PO TID PRN PRN Reason: Cough Calcium Carbonate (Calcium Carbonate 750 Mg Tab.Chew) 750 mg PO Q4H PRN PRN Reason: Heartburn Finasteride (Finasteride 5 Mg Tablet) 5 mg PO DAILY [facility] Last Admin: 08/03/24 08:02 Dose: 5 mg Documented By: JA Piperacillin Sod/Tazobactam (Sod 3.375 gm/ Sodium Chloride) 50 mls @ 100 mls/hr IV Q6H [facility] Last Admin: 08/03/24 15:02 Dose: 100 mls/hr Documented By: JA Vancomycin HCl 750 mg/ Sodium (Chloride) 265 mls @ 265 mls/hr IV Q12H [facility] Last Infusion: 08/03/24 06:35 Dose: Infused Documented By: KANNAN Diltiazem HCl 125 mg/ Sodium (Chloride) 125 mls @ 0 mls/hr IVCONT .Q0M [facility]; Protocol Magnesium Hydroxide (Milk Of Magnesia 30 Ml Oral.Susp) 30 ml PO DAILY PRN PRN Reason: Constipation Magnesium Oxide (Magnesium Oxide 400 Mg Tablet) 200 mg PO DAILY [facility] Last Admin: 08/03/24 08:02 Dose: 200 mg Documented By: JA Melatonin (Melatonin 3 Mg Tablet) 6 mg PO BEDTIME PRN PRN Reason: Insomnia Ondansetron HCl (Ondansetron Hcl 4 Mg/2 Ml Vial) 4 mg IVPUSH Q8H PRN PRN Reason: Nausea and Vomiting Pharmacy Consult (Consult Rx Vancomycin Dosing) 1 each MISCELLANE DAILY PRN PRN Reason: Consult order Potassium Chloride (Potassium Chloride Packet 20 Meq Packet) 40 meq PO BID [facility] Stop: 08/04/24 09:01 Last Admin: 08/03/24 10:11 Dose: 40 meq Documented By: JA Sodium Chloride (0.9 % Sodium Chloride Flush 3 Ml Syringe) 3 ml IVFLUSH QSHIFT [facility] Last Admin: 08/03/24 15:19 Dose: 3 ml Documented By: JA Triamterene/Hydrochlorothiazide (Triamterene/Hctz 75/50 Tablet) 1 tab PO DAILY [facility]; Protocol Last Admin: 08/03/24 08:02 Dose: 1 tab Documented By: JA Warfarin Sodium (Warfarin Sodium 4 Mg Tablet) 4 mg PO SUTUTHSA@1800 [facility] Last Admin: 08/02/24 18:24 Dose: 4 mg Documented By: JA Warfarin Sodium (Warfarin Sodium 2 Mg Tablet) 2 mg PO MOWEFR@1800 [facility] Labs 08/02/24 11:53 08/03/24 05:36 Labs: Laboratory Results - last 24 hr 08/02/24 08/03/24 08/03/24 11:53 05:36 14:53 Hold Purple Top SEE NOTE PT 32.9 H INR 2.8 H Anion Gap 13 Estim Creat Clear Calc 58.1 Estimated GFR > 60 Random Glucose 97 Calcium 9.0 B-Natriuretic Peptide 63 Random Vancomycin 12.3 L Microbiology Microbiology Results: Microbiology 08/02/24 13:08 Blood Culture - Preliminary Blood - Venous No growth after 24 hours. 08/02/24 13:08 Blood Culture - Preliminary Blood - Venous No growth after 24 hours. 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 Pt will be admitted to the hospital for significantly increasing lower leg edema concerning for new onset CHF as well as for left lower extremity cellulitis that failed outpatient therapy. 1.Left lower extremity edema/cellulitis -notes some improvement overnight with antibiotic therapy -ceftriaxone/vancomycin (2) -we will DC Lasix; repeat potassium -follow renals/divalents in am 2.Persistent AFib -episode of rapid ventricular response refractory to IV Lopressor -Cardizem drip -cardiology consult in a.m. 3.HTN -acceptable control on current therapies -adjust as indicated Full Code warfarin Patient will require ongoing hospitalization to treat cellulitis with IV antibiotics and for IV Cardizem to control atrial fibrillation. Patient will also need specialty consultation Quality Stroke Does the patient have a stroke diagnosis?: No VTE Prior VTE?: No VTE Risk Level:: Medical - moderate - high VTE Device Contraindication: Treatment Not Indicated VTE Drug Contraindication: N/A - Med Ordered
[2024-08-03] MEDS: dilTIAZem HCL 125 MG in 0.9 % Sodium Chloride 100 ML 10 MG IVCONT (16:14)
--- NOTE | 2024-08-03 16:40 | PC.NURSE ---
no rate change diltiazem@10 , HR [id number] BPM or less
[2024-08-03] MEDS: Warfarin Sodium 2 MG TABLET PO (17:20)
[2024-08-03] MEDS: Atorvastatin Calcium 20 MG TABLET PO (19:23)
[2024-08-03] MEDS: Acetaminophen 325 MG TABLET 650 MG PO (19:23)
[2024-08-03] MEDS: dilTIAZem HCL CD 120 MG CAP.ER.DEG PO (21:09)
[2024-08-04] VITALS (8 sets, daily range): BP systolic 105–130; BP diastolic 53–72; PULSE 80–140; RESP 18–20; TEMP 36.1–37.3; O2SAT 90–98; BMI 27.3
[2024-08-04] MEDS: vancomycin HCL 750 MG in 0.9 % Sodium Chloride 250 ML 100 MG IV (04:22)
[2024-08-04] MEDS: Piperacillin Sodium/Tazobactam 3.375 GM in 0.9 % Sodium Chloride 50 ML IV ×3 (05:40→18:26)
[2024-08-04 07:11] LABS: INTERNATIONAL NORM RATIO 3.9 (0.9-1.1); Prothrombin Time 45.9 SEC (10.9-12.4)
[2024-08-04 07:23] LABS: Alanine Aminotransferase 16 U/L (0-40); Albumin Level 3.6 g/dL (3.5-5.0); Alkaline Phosphatase 32 U/L (39-117); Anion Gap 11 (12-20); Aspartate Amino Transferase 30 U/L (5-37); Bilirubin Total 1.1 mg/dL (0.0-1.0); Blood Urea Nitrogen 19 mg/dL (9-16); Calcium 9.3 mg/dL (8.4-10.2); Carbon Dioxide 33 mmol/L (22-29); Chloride 100 mmol/L (96-108); Estimated Glomerular Filt Rate > 60; Glucose Fasting 106 mg/dL (60-99); Potassium 4.4 mmol/L (3.3-5.1); Sodium 140 mmol/L (135-145); Total Protein 6.7 g/dL (6.5-8.0)
[2024-08-04] MEDS: 0.9 % Sodium Chloride Flush 3 ML SYRINGE IVFLUSH (08:51)
[2024-08-04] MEDS: Finasteride 5 MG TABLET PO (08:51)
[2024-08-04] MEDS: Magnesium Oxide 400 MG TABLET 200 MG PO (08:51)
[2024-08-04] MEDS: Triamterene/HCTZ 75/50 TABLET 1 TAB PO (08:51)
[2024-08-04] MEDS: Potassium Chloride Packet 20 MEQ PACKET 40 MEQ PO (08:51)
--- NOTE | 2024-08-04 12:45 | P.PNIM_ITS ---
Subjective Subjective Date of Service: 08/04/24 Interval History: Continues to improve from a cellulitis standpoint however AFib remains difficult to control. Cardizem drip resumed Review of Systems Denies chest pain Denies shortness of breath Denies nausea vomiting diarrhea Denies fever chills Physical Exam 2 Vital Signs: Vital Signs: Last Vital Signs Temp 97.0 F 08/04/24 11:06 Pulse 95 08/04/24 11:06 Resp 20 08/04/24 11:06 BP 105/56 L 08/04/24 11:06 Pulse Ox 98 08/04/24 11:06 O2 Del Method Room Air 08/04/24 11:06 BMI result Body Mass Index 27.3 Const: Other: Awake alert oriented x3 in no acute distress Resp: Other: Clear to auscultation bilaterally no rales rhonchi wheezes Cardio: Other: No S4; positive S1-S2; no S3 murmurs rubs or gallops GI: Other: Soft nontender nondistended normoactive bowel sounds Extrem: Other: No edema bilaterally Objective Data Active Medications Acetaminophen (Acetaminophen 325 Mg Tablet) 650 mg PO Q6H PRN PRN Reason: Pain, Mild 1-3,fever,headache Last Admin: 08/03/24 19:23 Dose: 650 mg Documented By: RAMONA Atorvastatin Calcium (Atorvastatin Calcium 20 Mg Tablet) 20 mg PO BEDTIME [facility] Last Admin: 08/03/24 19:23 Dose: 20 mg Documented By: RAMONA Benzonatate (Benzonatate 100 Mg Capsule) 100 mg PO TID PRN PRN Reason: Cough Calcium Carbonate (Calcium Carbonate 750 Mg Tab.Chew) 750 mg PO Q4H PRN PRN Reason: Heartburn Diltiazem HCl (Diltiazem Hcl Cd 120 Mg Cap.Er.Deg) 120 mg PO BEDTIME [facility]; Protocol Last Admin: 08/03/24 21:09 Dose: 120 mg Documented By: RAMONA Finasteride (Finasteride 5 Mg Tablet) 5 mg PO DAILY [facility] Last Admin: 08/04/24 08:51 Dose: 5 mg Documented By: RAJANI Piperacillin Sod/Tazobactam (Sod 3.375 gm/ Sodium Chloride) 50 mls @ 100 mls/hr IV Q6H [facility] Last Infusion: 08/04/24 06:18 Dose: Infused Documented By: RAMONA Vancomycin HCl 750 mg/ Sodium (Chloride) 265 mls @ 265 mls/hr IV Q12H [facility] Last Infusion: 08/04/24 07:09 Dose: Infused Documented By: RAMONA Diltiazem HCl 125 mg/ Sodium (Chloride) 125 mls @ 0 mls/hr IVCONT .Q0M [facility]; Protocol Last Titration: 08/04/24 12:03 Dose: 10 mg/hr, 10 mls/hr Documented By: RAJANI Magnesium Hydroxide (Milk Of Magnesia 30 Ml Oral.Susp) 30 ml PO DAILY PRN PRN Reason: Constipation Magnesium Oxide (Magnesium Oxide 400 Mg Tablet) 200 mg PO DAILY [facility] Last Admin: 08/04/24 08:51 Dose: 200 mg Documented By: RAJANI Melatonin (Melatonin 3 Mg Tablet) 6 mg PO BEDTIME PRN PRN Reason: Insomnia Ondansetron HCl (Ondansetron Hcl 4 Mg/2 Ml Vial) 4 mg IVPUSH Q8H PRN PRN Reason: Nausea and Vomiting Pharmacy Consult (Consult Rx Vancomycin Dosing) 1 each MISCELLANE DAILY PRN PRN Reason: Consult order Sodium Chloride (0.9 % Sodium Chloride Flush 3 Ml Syringe) 3 ml IVFLUSH QSHIFT [facility] Last Admin: 08/04/24 08:51 Dose: 3 ml Documented By: RAJANI Triamterene/Hydrochlorothiazide (Triamterene/Hctz 75/50 Tablet) 1 tab PO DAILY [facility]; Protocol Last Admin: 08/04/24 08:51 Dose: 1 tab Documented By: RAJANI Warfarin Sodium (Warfarin Sodium 4 Mg Tablet) 4 mg PO SUTUTHSA@1800 [facility] Last Admin: 08/02/24 18:24 Dose: 4 mg Documented By: JA Warfarin Sodium (Warfarin Sodium 2 Mg Tablet) 2 mg PO MOWEFR@1800 [facility] Last Admin: 08/03/24 17:20 Dose: 2 mg Documented By: JA Labs 08/02/24 11:53 08/04/24 06:27 Labs: Laboratory Results - last 24 hr 08/03/24 08/04/24 14:53 06:27 Hold Purple Top SEE NOTE PT 45.9 H D INR 3.9 H Anion Gap 11 L Estim Creat Clear Calc 61.0 Estimated GFR > 60 Fasting Glucose 106 H Calcium 9.3 Total Bilirubin 1.1 H AST 30 ALT 16 Alkaline Phosphatase 32 L Total Protein 6.7 Albumin 3.6 Random Vancomycin 12.3 L Microbiology Microbiology Results: Microbiology 08/02/24 13:08 Blood Culture - Preliminary Blood - Venous No growth after 24 hours. 08/02/24 13:08 Blood Culture - Preliminary Blood - Venous No growth after 24 hours. 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 Pt will be admitted to the hospital for significantly increasing lower leg edema concerning for new onset CHF as well as for left lower extremity cellulitis that failed outpatient therapy. 1.Left lower extremity edema/cellulitis -improvement overnight with antibiotic therapy -ceftriaxone/vancomycin (3) -potassium normalized with repletion -follow renals/divalents in am 2.Persistent AFib -episode of rapid ventricular response refractory to IV Lopressor -Cardizem drip restarted secondary to poor control -cardiology consult placed 3.HTN -acceptable control on current therapies -adjust as indicated Full Code warfarin Patient will require ongoing hospitalization to treat cellulitis with IV antibiotics and for IV Cardizem to control atrial fibrillation. Patient will also need specialty consultation Quality Stroke Does the patient have a stroke diagnosis?: No VTE Prior VTE?: No VTE Risk Level:: Medical - moderate - high VTE Device Contraindication: Treatment Not Indicated VTE Drug Contraindication: N/A - Med Ordered
--- NOTE | 2024-08-04 17:03 | PM.CNCAR ---
History of Present Illness History of Present Illness Date of Service: 08/04/24 Requesting physician: Chris Escobar Chief complaint: Cellulitis new chf Narrative: 88-year-old gentleman with known history of persistent atrial fibrillation on Cardizem and Coumadin who is presenting after recent fall and left knee injury. He had knee infection and was getting antibiotics but also started developing lower extremity edema. He was seen in urgent care and eventually he was advised to come to ER for heart failure. He had difficult to control atrial fibrillation and has been requiring diltiazem drip off and on. He is currently on diltiazem 120 mg daily. He previously was taking 180 mg of diltiazem but was complaining of dizziness and is dose was decreased as outpatient few months ago. He is denying any shortness of breath. No extremity edema has improved. [facility] Past Medical History Medical History Tachy-garrison syndrome Hypertension, essential, benign Hyperlipidemia Atrial fibrillation Osteoarthritis Pacemaker (~2008) Current use of 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 therapy Family History Family History Father No problems noted. Mother No problems noted. Surgical History Surgical History History of colonoscopy History of eye surgery History of appendectomy Status post left foot surgery (~02/2020) Amputated toe of left foot History of cardiac pacemaker History of cardiac radiofrequency ablation (RFA) Social History Social History Household Members: Spouse Housing: House Do you presently have visiting nurse or other home services: No Alcohol intake: current Alcohol intake frequency: a few times a week Alcohol type: beer Patient Tobacco Use Status: Former Tobacco user Years Smoked: 15 Smoked in Last 30 Days: No e-Cigarette/Vaping Use: Never Used Use of substances other than those prescribed or required for medical reasons: No Currently Displaying Signs/Symptoms of Drug Intoxication Withdrawal: No Advance Directives: Yes Advance Directives on File: Yes Advance Directives Date on File: 09/27/22 Do you have a plan to hurt others: No Plan Recently lost weight without trying: No Nutrition Risks: No Nutritional Risk Poor oral hygiene: No service: No Current occupational status: retired Hearing needs: No Vision needs: Yes (Glasses) Meds Allergies Allergy/AdvReac Type Severity Reaction Status Date / Time No Known Allergies Allergy Verified 08/02/24 11:48 [No Known Allergies*] Active Medications: Current Medications Acetaminophen (Acetaminophen 325 Mg Tablet) 650 mg PO Q6H PRN PRN Reason: Pain, Mild 1-3,fever,headache Last Admin: 08/03/24 19:23 Dose: 650 mg Atorvastatin Calcium (Atorvastatin Calcium 20 Mg Tablet) 20 mg PO BEDTIME [facility] Last Admin: 08/03/24 19:23 Dose: 20 mg Benzonatate (Benzonatate 100 Mg Capsule) 100 mg PO TID PRN PRN Reason: Cough Calcium Carbonate (Calcium Carbonate 750 Mg Tab.Chew) 750 mg PO Q4H PRN PRN Reason: Heartburn Diltiazem HCl (Diltiazem Hcl Cd 120 Mg Cap.Er.Deg) 120 mg PO BEDTIME [facility]; Protocol Last Admin: 08/03/24 21:09 Dose: 120 mg Finasteride (Finasteride 5 Mg Tablet) 5 mg PO DAILY [facility] Last Admin: 08/04/24 08:51 Dose: 5 mg Piperacillin Sod/Tazobactam (Sod 3.375 gm/ Sodium Chloride) 50 mls @ 100 mls/hr IV Q6H [facility] Last Infusion: 08/04/24 14:56 Dose: Infused Vancomycin HCl 750 mg/ Sodium (Chloride) 265 mls @ 265 mls/hr IV Q12H [facility] Last Infusion: 08/04/24 07:09 Dose: Infused Diltiazem HCl 125 mg/ Sodium (Chloride) 125 mls @ 0 mls/hr IVCONT .Q0M [facility]; Protocol Last Titration: 08/04/24 12:03 Dose: 10 mg/hr, 10 mls/hr Magnesium Hydroxide (Milk Of Magnesia 30 Ml Oral.Susp) 30 ml PO DAILY PRN PRN Reason: Constipation Magnesium Oxide (Magnesium Oxide 400 Mg Tablet) 200 mg PO DAILY [facility] Last Admin: 08/04/24 08:51 Dose: 200 mg Melatonin (Melatonin 3 Mg Tablet) 6 mg PO BEDTIME PRN PRN Reason: Insomnia Ondansetron HCl (Ondansetron Hcl 4 Mg/2 Ml Vial) 4 mg IVPUSH Q8H PRN PRN Reason: Nausea and Vomiting Pharmacy Consult (Consult Rx Vancomycin Dosing) 1 each MISCELLANE DAILY PRN PRN Reason: Consult order Sodium Chloride (0.9 % Sodium Chloride Flush 3 Ml Syringe) 3 ml IVFLUSH QSHIFT [facility] Last Admin: 08/04/24 16:54 Dose: Not Given Triamterene/Hydrochlorothiazide (Triamterene/Hctz 75/50 Tablet) 1 tab PO DAILY [facility]; Protocol Last Admin: 08/04/24 08:51 Dose: 1 tab Warfarin Sodium (Warfarin Sodium 4 Mg Tablet) 4 mg PO SUTUTHSA@1800 [facility] Last Admin: 08/02/24 18:24 Dose: 4 mg Warfarin Sodium (Warfarin Sodium 2 Mg Tablet) 2 mg PO MOWEFR@1800 [facility] Last Admin: 08/03/24 17:20 Dose: 2 mg Home Medications ?Medication ?Instructions ?Recorded ?Confirmed ?Last Taken ?Type magnesium 200 mg tablet 200 mg PO DAILY 10/17/23 08/02/24 08/01/24 History atorvastatin 20 mg tablet 20 mg PO BEDTIME 08/02/24 08/02/24 08/01/24 History diltiazem HCl 120 mg 120 mg PO BEDTIME 08/02/24 08/02/24 08/01/24 History capsule,extended release 24 hr warfarin 2 mg tablet 2 mg PO MOWEFR@1800 08/02/24 08/02/24 07/31/24 History warfarin 4 mg tablet 4 mg PO SUTUTHSA@1800 08/02/24 08/02/24 08/01/24 History Physical Exam Vital Signs: Vital Signs: Last Vital Signs Temp 97.1 F 08/04/24 15:51 Pulse 90 08/04/24 15:51 Resp 18 08/04/24 15:51 BP 130/72 08/04/24 15:51 Pulse Ox 90 L 08/04/24 15:51 O2 Del Method Room Air 08/04/24 15:51 BMI result Body Mass Index 27.3 GENERAL APPEARANCE: in no acute distress, pleasant. NECK: no carotid bruit, no jugular venous distention. SKIN: no suspicious lesions, warm and dry. HEART: no murmurs, irregular rate and rhythm. LUNGS: clear to auscultation bilaterally. ABDOMEN: soft, nontender. EXTREMITIES: no edema. Left knee eschar with induration around the area. PERIPHERAL PULSES: equal. NEUROLOGIC: No gross deficits, AAO X 3 Objective Labs and Meds 08/02/24 11:53 08/04/24 06:27 Lab results: Laboratory Results - last 24 hr 08/04/24 06:27 Hold Purple Top SEE NOTE PT 45.9 H D INR 3.9 H Sodium 140 Potassium 4.4 D Chloride 100 Carbon Dioxide 33 H Anion Gap 11 L BUN 19 H Creatinine 1.00 Estim Creat Clear Calc 61.0 Estimated GFR > 60 Fasting Glucose 106 H Calcium 9.3 Total Bilirubin 1.1 H AST 30 ALT 16 Alkaline Phosphatase 32 L Total Protein 6.7 Albumin 3.6 Assessment and Plan (1) Atrial fibrillation with rapid ventricular response: Status: Acute (2) Cellulitis: Status: Acute Plan 88-year-old gentleman presenting for cellulitis on the left leg and AFib with RVR. He is on IV antibiotics and overall infection is improving. Heart rate is better controlled currently and he is off the Cardizem drip. I think we can increase his Cardizem dose to 180 mg a B like he was taking before. Clinically does not appear to be volume overloaded right now. Lungs are clear to auscultation 2. We can watch him and decide about diuretics as needed. Blood pressure is well controlled. Thank you for allowing me to participate in the care of your patient. Please feel free to contact me if you have any questions. Procedures Date of Service Date of Service: 08/04/24
[2024-08-04 17:47] LABS: Vancomycin Random 10.5 mcg/mL (15-20)
[2024-08-04] MEDS: vancomycin HCL 1,000 MG in 0.9 % Sodium Chloride 250 ML 270 MG IV (18:26)
[2024-08-04] MEDS: dilTIAZem HCL CD 180 MG CAP.ER.24H PO (21:20)
[2024-08-04] MEDS: Atorvastatin Calcium 20 MG TABLET PO (21:20)
[2024-08-05] MEDS: Piperacillin Sodium/Tazobactam 3.375 GM in 0.9 % Sodium Chloride 50 ML IV ×4 (00:26→18:51)
[2024-08-05] MEDS: 0.9 % Sodium Chloride Flush 3 ML SYRINGE IVFLUSH ×3 (00:27→20:25)
[2024-08-05 03:55] VITALS: BP 116/56; PULSE 83; RESP 18; TEMP 36.9; O2SAT 98
[2024-08-05] MEDS: vancomycin HCL 1,000 MG in 0.9 % Sodium Chloride 250 ML 270 MG IV ×2 (05:21→17:38)
[2024-08-05 06:00] VITALS: BMI 27.6
[2024-08-05 06:11] LABS: INTERNATIONAL NORM RATIO 3.3 (0.9-1.1); Prothrombin Time 38.9 SEC (10.9-12.4)
[2024-08-05 06:14] LABS: Alanine Aminotransferase 12 U/L (0-40); Albumin Level 3.4 g/dL (3.5-5.0); Alkaline Phosphatase 29 U/L (39-117); Anion Gap 13 (12-20); Aspartate Amino Transferase 33 U/L (5-37); Bilirubin Total 1.2 mg/dL (0.0-1.0); Blood Urea Nitrogen 17 mg/dL (9-16); Calcium 8.8 mg/dL (8.4-10.2); Carbon Dioxide 28 mmol/L (22-29); Chloride 102 mmol/L (96-108); Creatinine Clr Calc Pharmacy 75.3; Estimated Glomerular Filt Rate > 60; Glucose Fasting 99 mg/dL (60-99); Potassium 3.5 mmol/L (3.3-5.1); Sodium 139 mmol/L (135-145); Total Protein 6.4 g/dL (6.5-8.0)
[2024-08-05 07:07] VITALS: BP 119/63; PULSE 83; RESP 18; TEMP 36.1; O2SAT 99
[2024-08-05] MEDS: Magnesium Oxide 400 MG TABLET 200 MG PO (08:03)
[2024-08-05] MEDS: Triamterene/HCTZ 75/50 TABLET 1 TAB PO (08:03)
[2024-08-05] MEDS: Finasteride 5 MG TABLET PO (08:04)
[2024-08-05 10:57] VITALS: BP 119/60; PULSE 92; RESP 14; TEMP 36.4; O2SAT 98
--- NOTE | 2024-08-05 12:42 | HO.PM.IMPN ---
Subjective Subjective Date of Service: 08/05/24 Interval History: Still with intermittent burst of rapid ventricular response. From a cellulitis standpoint doing extremely well Review of Systems Denies chest pain Denies shortness of breath Denies nausea vomiting diarrhea Denies fever chills Physical Exam Vital Signs: Vital Signs: Last Vital Signs Temp 97.6 F 08/05/24 10:57 Pulse 92 08/05/24 10:57 Resp 14 08/05/24 10:57 BP 119/60 08/05/24 10:57 Pulse Ox 98 08/05/24 10:57 O2 Del Method Room Air 08/05/24 10:57 BMI result Body Mass Index 27.6 Const: Other: Awake alert oriented x3 in no acute distress Resp: Other: Clear to auscultation bilaterally no rales rhonchi wheezes Cardio: Other: No S4; positive S1-S2; no S3 murmurs rubs or gallops GI: Other: Soft nontender nondistended normoactive bowel sounds Extrem: Other: No edema bilaterally Objective Data Active Medications Acetaminophen (Acetaminophen 325 Mg Tablet) 650 mg PO Q6H PRN PRN Reason: Pain, Mild 1-3,fever,headache Last Admin: 08/03/24 19:23 Dose: 650 mg Documented By: RAMONA Atorvastatin Calcium (Atorvastatin Calcium 20 Mg Tablet) 20 mg PO BEDTIME [facility] Last Admin: 08/04/24 21:20 Dose: 20 mg Documented By: SARBJIT Benzonatate (Benzonatate 100 Mg Capsule) 100 mg PO TID PRN PRN Reason: Cough Calcium Carbonate (Calcium Carbonate 750 Mg Tab.Chew) 750 mg PO Q4H PRN PRN Reason: Heartburn Diltiazem HCl (Diltiazem Hcl Cd 180 Mg Cap.Er.24h) 180 mg PO BEDTIME [facility]; Protocol Last Admin: 08/04/24 21:20 Dose: 180 mg Documented By: SARBJIT Finasteride (Finasteride 5 Mg Tablet) 5 mg PO DAILY [facility] Last Admin: 08/05/24 08:04 Dose: 5 mg Documented By: KATHLEEN Piperacillin Sod/Tazobactam (Sod 3.375 gm/ Sodium Chloride) 50 mls @ 100 mls/hr IV Q6H [facility] Last Admin: 08/05/24 12:25 Dose: 100 mls/hr Documented By: KATHLEEN Diltiazem HCl 125 mg/ Sodium (Chloride) 125 mls @ 0 mls/hr IVCONT .Q0M [facility]; Protocol Last Titration: 08/04/24 17:04 Dose: 0 mg/hr, 0 mls/hr Documented By: RAJANI Vancomycin HCl 1,000 mg/ (Sodium Chloride) 270 mls @ 270 mls/hr IV Q12H [facility] Last Infusion: 08/05/24 06:21 Dose: Infused Documented By: SARBJIT Magnesium Hydroxide (Milk Of Magnesia 30 Ml Oral.Susp) 30 ml PO DAILY PRN PRN Reason: Constipation Magnesium Oxide (Magnesium Oxide 400 Mg Tablet) 200 mg PO DAILY [facility] Last Admin: 08/05/24 08:03 Dose: 200 mg Documented By: KATHLEEN Melatonin (Melatonin 3 Mg Tablet) 6 mg PO BEDTIME PRN PRN Reason: Insomnia Ondansetron HCl (Ondansetron Hcl 4 Mg/2 Ml Vial) 4 mg IVPUSH Q8H PRN PRN Reason: Nausea and Vomiting Pharmacy Consult (Consult Rx Vancomycin Dosing) 1 each MISCELLANE DAILY PRN PRN Reason: Consult order Sodium Chloride (0.9 % Sodium Chloride Flush 3 Ml Syringe) 3 ml IVFLUSH QSHIFT [facility] Last Admin: 08/05/24 08:04 Dose: 3 ml Documented By: KATHLEEN Triamterene/Hydrochlorothiazide (Triamterene/Hctz 75/50 Tablet) 1 tab PO DAILY [facility]; Protocol Last Admin: 08/05/24 08:03 Dose: 1 tab Documented By: KATHLEEN Warfarin Sodium (Warfarin Sodium 4 Mg Tablet) 4 mg PO SUTUTHSA@1800 [facility] Last Admin: 08/04/24 17:06 Dose: Not Given Documented By: RAJANI Non-Admin Reason: eleavated INR Warfarin Sodium (Warfarin Sodium 2 Mg Tablet) 2 mg PO MOWEFR@1800 [facility] Last Admin: 08/03/24 17:20 Dose: 2 mg Documented By: JA Labs 08/02/24 11:53 08/05/24 05:29 Labs: Laboratory Results - last 24 hr 08/04/24 08/05/24 14:59 05:29 Hold Purple Top SEE NOTE PT 38.9 H INR 3.3 H Anion Gap 13 Estim Creat Clear Calc 75.3 Estimated GFR > 60 Fasting Glucose 99 Calcium 8.8 Total Bilirubin 1.2 H AST 33 ALT 12 Alkaline Phosphatase 29 L Total Protein 6.4 L Albumin 3.4 L Random Vancomycin 10.5 L Microbiology Microbiology Results: Microbiology 08/02/24 13:08 Blood Culture - Preliminary Blood - Venous No growth after 48 hours. 08/02/24 13:08 Blood Culture - Preliminary Blood - Venous No growth after 48 hours. 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 Pt will be admitted to the hospital for significantly increasing lower leg edema concerning for new onset CHF as well as for left lower extremity cellulitis that failed outpatient therapy. 1.Left lower extremity edema/cellulitis -improvement overnight with antibiotic therapy -ceftriaxone/vancomycin (4) -potassium normalized with repletion -follow renals/divalents in am 2.Persistent AFib -episode of rapid ventricular response refractory to IV Lopressor -Cardizem increased to 180. Follow response 3.HTN -acceptable control on current therapies -adjust as indicated Full Code warfarin Patient will require ongoing hospitalization to treat cellulitis with IV antibiotics and for IV Cardizem to control atrial fibrillation. Patient will also need specialty consultation Quality Stroke Does the patient have a stroke diagnosis?: No VTE Prior VTE?: No VTE Risk Level:: Medical - moderate - high VTE Device Contraindication: Treatment Not Indicated VTE Drug Contraindication: N/A - Med Ordered
--- NOTE | 2024-08-05 14:13 | PC.NURSE ---
patient heart rate sustained over 120bpm cardizem drip resumed @10
[2024-08-05] MEDS: dilTIAZem HCL 125 MG in 0.9 % Sodium Chloride 100 ML 10 MG IVCONT (14:36)
[2024-08-05 16:00] VITALS: BP 125/72; PULSE 86; RESP 16; TEMP 36.2; O2SAT 94
[2024-08-05 16:35] LABS: Vancomycin Random 13.5 mcg/mL (15-20)
[2024-08-05 19:54] VITALS: BP 103/57; PULSE 89; RESP 18; TEMP 36.2; O2SAT 96
[2024-08-05] MEDS: Atorvastatin Calcium 20 MG TABLET PO (20:24)
[2024-08-06] VITALS: BP 119/60; PULSE 77; RESP 16; TEMP 36.4; O2SAT 97
[2024-08-06] MEDS: Piperacillin Sodium/Tazobactam 3.375 GM in 0.9 % Sodium Chloride 50 ML IV ×3 (00:28→12:26)
[2024-08-06 04:00] VITALS: BP 136/64; PULSE 86; RESP 20; TEMP 36.7; O2SAT 97
[2024-08-06] MEDS: vancomycin HCL 1,000 MG in 0.9 % Sodium Chloride 250 ML 270 MG IV (05:43)
[2024-08-06 06:00] VITALS: BMI 26.6
[2024-08-06 07:32] VITALS: BP 115/66; PULSE 74; RESP 20; TEMP 37; O2SAT 97
[2024-08-06 07:36] LABS: INTERNATIONAL NORM RATIO 2.9 (0.9-1.1); Prothrombin Time 34.4 SEC (10.9-12.4)
[2024-08-06 07:40] LABS: Alanine Aminotransferase 18 U/L (0-40); Albumin Level 3.4 g/dL (3.5-5.0); Alkaline Phosphatase 30 U/L (39-117); Anion Gap 13 (12-20); Aspartate Amino Transferase 26 U/L (5-37); Bilirubin Total 1.1 mg/dL (0.0-1.0); Blood Urea Nitrogen 15 mg/dL (9-16); Calcium 8.8 mg/dL (8.4-10.2); Carbon Dioxide 28 mmol/L (22-29); Chloride 101 mmol/L (96-108); Creatinine Clr Calc Pharmacy 73.5; Estimated Glomerular Filt Rate > 60; Glucose Fasting 101 mg/dL (60-99); Potassium 3.6 mmol/L (3.3-5.1); Sodium 138 mmol/L (135-145); Total Protein 6.3 g/dL (6.5-8.0)
[2024-08-06] MEDS: dilTIAZem HCL CD 240 MG CAP.ER.DEG PO (07:58)
[2024-08-06] MEDS: Magnesium Oxide 400 MG TABLET 200 MG PO (07:59)
[2024-08-06] MEDS: Finasteride 5 MG TABLET PO (08:00)
[2024-08-06] MEDS: Triamterene/HCTZ 75/50 TABLET 1 TAB PO (08:00)
[2024-08-06] MEDS: 0.9 % Sodium Chloride Flush 3 ML SYRINGE IVFLUSH (08:06)
[2024-08-06 11:25] VITALS: BP 109/68; PULSE 86; RESP 16; TEMP 36.5; O2SAT 98
--- NOTE | 2024-08-06 11:55 | PM.DS ---
DS: Providers Provider Date of Service: 08/06/24 Date of admission: 08/02/24 15:41 Date of discharge: 08/06/24 Primary care physician: TIARRA Chino Consults: 08/02/24 17:17 Consult to Wound Care Routine Reason for consultation: R 4th toe wound, L. toes ? bruising vs injury? 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 Pt with chronic lower leg edema, though has been increasing the past few days, especially since yesterday when patient's daughter noticed right ankle was significantly more swollen than normal. Patient complains of bilateral ankle pressure and pain with movement, as well as some numbness and tingling. Denies any previous diagnosis of CHF. Last year patient apparently had significant arterial and venous evaluation of lower extremities prior to bilateral hammertoe correction surgery. Reports no significant disease in lower extremity circulatory system. Denies shortness or breath or difficulty breathing. Chronic cough at baseline. No orthopnea. Patient also comes in for increasing left lower extremity erythema. 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 Presented to urgent care 1 week later due to redness, swelling, and warmth to the affected area and was prescribed a 7 day course of cephalexin 500 mg p.o. Q 6 H. patient reports took antibiotics to completion, though has noticed erythema has continued to spread all the way down his ankle and to his foot. Denies fever and chills. Denies significant left knee pain. In the ED pt was tachycardic up to 101 otherwise vitals stable. Labs were grossly unremarkable around baseline for patient. No leukocytosis. Stable H&H. No significant electrolyte abnormalities. Renal function baseline. Hepatic function baseline. BNP pending. Initial troponin negative at 2.8. CXR showed COPD and cardiomegaly, as well as suspected pleural plaques but no definite superimposed active disease. Left lower extremity venous duplex negative for DVT. Left foot negative for acute fracture or dislocation. EKG demonstrated AFib RVR of 114 and PVCs and nonspecific ST and T-wave abnormalities. Pt was treated with furosemide 40 mg IV, vanc, and Zosyn. Pt will be admitted to the hospital for significantly increasing lower leg edema concerning for new onset CHF as well as for left lower extremity cellulitis that failed outpatient therapy. Hospital course Patient was admitted to telemetry and started on vancomycin and ceftriaxone for his cellulitis. During his hospitalization, his AFib was difficult to control with heart rates in the 130s and 140s. Cardiology was consulted and increase the Cardizem to 240 daily. Patient was successfully weaned off the Cardizem drip and has not had any breakthrough on the oral dosing. At this point in time his cellulitis has improved where he is acceptable to complete an oral course of Ceftin. He will be discharged today can follow up with his PCP next available Time Attestation Discharge Coordination Time (in mins): 35 Quality: Safe Use of Opioids Does Pt have an Active Cancer Diagnosis on the Problem List?: No Quality: Stroke Does the patient have a stroke diagnosis?: No Physical Exam Vital Signs: Vital Signs: Last Vital Signs Temp 97.7 F 08/06/24 11:25 Pulse 86 08/06/24 11:25 Resp 16 08/06/24 11:25 BP 109/68 08/06/24 11:25 Pulse Ox 98 08/06/24 11:25 O2 Del Method Room Air 08/06/24 11:25 BMI result Body Mass Index 26.6 Const: Other: Awake alert oriented x3 in no acute distress Resp: Other: Clear to auscultation bilaterally no rales rhonchi wheezes Cardio: Other: No S4; positive S1-S2; no S3 murmurs rubs or gallops GI: Other: Soft nontender nondistended normoactive bowel sounds Extrem: Other: No edema bilaterally DS: Data Data Completed and Pending Labs on day of discharge: Laboratory Results - last 24 hr 08/05/24 08/06/24 15:59 07:04 PT 34.4 H INR 2.9 H Sodium 138 Potassium 3.6 Chloride 101 Carbon Dioxide 28 Anion Gap 13 BUN 15 Creatinine 0.83 Estim Creat Clear Calc 73.5 Estimated GFR > 60 Fasting Glucose 101 H Calcium 8.8 Total Bilirubin 1.1 H AST 26 ALT 18 Alkaline Phosphatase 30 L Total Protein 6.3 L Albumin 3.4 L Random Vancomycin 13.5 L Preliminary micro results at discharge 08/02/24 13:08 Blood Culture - Preliminary Blood - Venous No growth after 48 hours. 08/02/24 13:08 Blood Culture - Preliminary Blood - Venous No growth after 48 hours. Discharge Plan Discharge Anticipated Discharge Date/Time: 08/06/24 11:45 Patient Disposition: Home, Self-Care Discharge Diagnosis: Lower extremity cellulitis Referrals: Romain Vizcarra, BEADER-BC [Primary Care Provider] - 1 Week Discharge Medications: New amoxicillin-pot clavulanate [Augmentin] 500-125 mg tablet 1 tab PO BID Qty: 14 0RF diltiazem HCl [Cardizem CD] 240 mg capsule,extended release 24hr 240 mg PO DAILY Qty: 30 0RF Continued triamterene-hydrochlorothiazid 75-50 mg tablet 1 tab PO DAILY Qty: 90 1RF warfarin 4 mg Tablet 4 mg PO SUTUTHSA@1800 warfarin 2 mg Tablet 2 mg PO MOWEFR@1800 atorvastatin 20 mg tablet 20 mg PO BEDTIME magnesium 200 mg tablet 200 mg PO DAILY finasteride [Proscar] 5 mg tablet 5 mg PO DAILY 90 Days Qty: 90 3RF Discontinued diltiazem HCl 120 mg capsule,extended release 24hr 120 mg PO BEDTIME Discharge Orders: Discharge Order (Routine); Ordered 08/06/24 Ordered By: Chris Escobar Diet: Advance to usual diet Activity on Discharge: As tolerated Stand Alone Forms: Patient Portal Discharge page Print Language: [place] Islander Care Plan Goals: Resume all medicines as taken prior to hospitalization. Health Concerns: Your Cardizem has been increased to 240 mg daily. You also need to complete a course of Ceftin 250 twice daily for 7 days Plan of Treatment: Follow up with PCP next available Assessment: See discharge summary
--- NOTE | 2024-08-06 12:35 | MHC.CM.PN ---
Per MD, Patient is medically cleared for dc to home today, with services. A referral was made to NA, who has been made aware of today's dc. CM met with Patient at bedside and addressed IMM with him. Patient's Daughter will transport to home.
--- NOTE | 2024-08-06 12:35 | W.MHC.F2F ---
Service Date Service Date: 08/06/24 Encounter Date of encounter: 08/06/24 Encounter: Acute hospitalization Reasons for Services Signs and symptoms assessed: Cardiac status as it relates to AFib and follow up cellulitis Reason for residential: medication management and medication treatment Homebound: Leaving the home is medically contraindicated at this time without the asist of a device and/or another person due th the listed conditions above and below. Reason homebound: unsteady gait / fall risk and unable to drive Certification: Based on the above findings, I certify that this patient is confined to the home and needs intermittent residential care, physical therapy and/or speech therapy, or continues to need occupational therapy. The patient is under my care, and I have initiated the establishment of the plan of care. The patient will be followed by a physician who will periodically review the plan of care. Time Spent With Patient Time: Total time managing care of this patient today ____ minutes.
== END 2024-08-06 14:09 | disposition home health service (06) | DRG 603 ==
LOC: HO.ED 14:24 → HO.EDOVER 15:52 → HO.IMC 16:00
PROVIDERS: Physician Assistant; Admitting Provider Student in an Organized Health Care Education/Training Program; Emergency Provider Emergency Medicine; PCP Nurse Practitioner Family; Visit Provider Hospitalist
DX: L03.116 Cellulitis of left lower limb (principal); I48.19 Other persistent atrial fibrillation; E78.5 Hyperlipidemia, unspecified; N40.0 Benign prostatic hyperplasia without lower urinary tract symptoms; I11.0 Hypertensive heart disease with heart failure; I50.9 Heart failure, unspecified; I49.5 Sick sinus syndrome; Z95.0 Presence of cardiac pacemaker; Z87.891 Personal history of nicotine dependence; Z23 Encounter for immunization; Z79.01 Long term (current) use of 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s; Z79.899 Other long term (current) drug therapy
CPT/HCPCS: 36415; 71046; 73630; 80048; 80053; 80202; 83605; 83690; 83880; 84484; 85025; 85610; 87040; 90656; 93005; 93306; 93971; 97162; 99212; 99285; J1940; J2543; J3370; Q9957

== ENCOUNTER → 2024-08-02 11:46 | Outpatient (BNV) | payer MEDICARE, OTHER, SELFPAY | PROVIDERS: Emergency Provider Emergency Medicine; PCP Nurse Practitioner Family; Visit Provider Radiology Diagnostic Radiology | DX: I51.7 Cardiomegaly (principal); R60.0 Localized edema | CPT/HCPCS: 71046; 93971 ==

== ENCOUNTER 2024-08-02 15:41 | Outpatient (BNV) | payer MEDICARE, OTHER, SELFPAY | END 2024-08-03 07:00 | PROVIDERS: Admitting Provider Student in an Organized Health Care Education/Training Program; Emergency Provider Emergency Medicine; PCP Nurse Practitioner Family; Visit Provider Internal Medicine Cardiovascular Disease | DX: I35.1 Nonrheumatic aortic (valve) insufficiency (principal) | CPT/HCPCS: 93306 ==

== ENCOUNTER → 2024-08-02 15:41 | Outpatient (BNV) | payer MEDICARE, OTHER, SELFPAY | PROVIDERS: Admitting Provider Student in an Organized Health Care Education/Training Program; Emergency Provider Emergency Medicine; PCP Nurse Practitioner Family; Visit Provider Internal Medicine Cardiovascular Disease | DX: I48.91 Unspecified atrial fibrillation (principal); L03.90 Cellulitis, unspecified | CPT/HCPCS: 99223 ==

== ENCOUNTER → 2024-08-02 15:41 | Outpatient (BNV) | payer MEDICARE, OTHER, SELFPAY | PROVIDERS: Admitting Provider Student in an Organized Health Care Education/Training Program; Emergency Provider Emergency Medicine; PCP Nurse Practitioner Family; Visit Provider Student in an Organized Health Care Education/Training Program | DX: L03.90 Cellulitis, unspecified (principal); I48.91 Unspecified atrial fibrillation | CPT/HCPCS: 99223; 99232; 99239; G0180 ==

== ENCOUNTER 2024-08-10 11:25 | Observation (INO) | payer MEDICARE, OTHER, SELFPAY ==
[2024-08-10] VITALS (7 sets, daily range): BP systolic 112–132; BP diastolic 54–70; PULSE 67–98; RESP 16–20; TEMP 36.4–37; O2SAT 97–100; BMI 28.4; BMI 25.4
--- NOTE | ~2024-08-10 | XR_ITS ---
EXAMINATION: XR CHEST CLINICAL INFORMATION: SOB COMPARISON: Chest CT 08/02/2024 TECHNIQUE: 2 views of the chest were obtained. FINDINGS: There is mild cardiomegaly. There is mild increased pulmonary vascularity. The lungs are expanded and clear. There are dual pacer electrodes in right atrium and right ventricle. No gross bony abnormality seen. XR/XR chest 2V IMPRESSION: Cardiomegaly with mild CHF. Electronically signed by: Francisco Fajardo MD 08/10/2024 01:01 PM D[facility]
--- NOTE | 2024-08-10 11:44 | ED_ITS ---
HPI - General Adult General Chief complaint: Dyspnea Stated complaint: SOB ON EXERTION, HX OF CHF PER EMS Time Seen by Provider: 08/10/24 11:33 Source: patient, family (patient's daughter) and EMS Mode of arrival: EMS Limitations: no limitations History of Present Illness ED Provider: Russ Douglass PA-C HPI narrative: Patient is an 88 year old assigned male at with a history of PAD, atrial fib on anti-coag, HLD, HTN, pacemaker, and recent CHF diagnosis presenting to the emergency department today with increased shortness of breath. Patient states that he got up to make his 's breakfast and after that became very short of breath with walking. Patient states that the visiting nurse came and assessed him and said that the patient's oxygen was low during walking and the patient felt much more short of breath while walking with her. Patient states that he sat down on the couch and his daughter said the patient fell asleep briefly and they called an ambulance. Patient denies any dizziness, lightheadedness, abdominal pain, nausea, vomiting, fever, chills, blurry vision, double vision, loss of vision, chest pain, back pain, night sweats, pain with urination, increased urinary frequency, increased urinary urgency, blood in his urine or stool, syncope or a near syncopal episode, recent trauma or falls, bowel incontinence, bladder incontinence, or any other complaints at this time. Relieving factors: none Exacerbating factors: other (ambulation) Associated symptoms: shortness of breath Treatments prior to arrival: none Related Data Home Medications ?Medication ?Instructions ?Recorded ?Confirmed magnesium 200 mg tablet 200 mg PO DAILY 10/17/23 08/09/24 atorvastatin 20 mg tablet 20 mg PO BEDTIME 08/02/24 08/09/24 warfarin 2 mg tablet 2 mg PO MOWEFR@1800 08/02/24 08/09/24 warfarin 4 mg tablet 4 mg PO SUTUTHSA@1800 08/02/24 08/09/24 Previous Rx's ?Medication ?Instructions ?Recorded finasteride 5 mg tablet (Proscar) 5 mg PO DAILY 90 days #90 tabs 09/22/23 triamterene 75 1 tab PO DAILY #90 tabs 02/15/24 mg-hydrochlorothiazide 50 mg tablet amoxicillin 500 mg-potassium 1 tab PO BID #14 tabs 08/06/24 clavulanate 125 mg tablet (Augmentin) diltiazem HCl 240 mg 240 mg PO DAILY #30 caps 08/06/24 capsule,extended release 24 hr (Cardizem CD) Allergies Allergy/AdvReac Type Severity Reaction Status Date / Time No Known Allergies Allergy Verified 08/10/24 11:57 [No Known Allergies*] Review of Systems 2 Constitutional: Constitutional: Reports no additional constitutional complaints, Denies chills, Denies fever(s) and Denies night sweats Eyes: Eyes: Reports no additional eye complaints, Denies blurry vision, Denies change in vision, Denies diplopia, Denies eye discharge, Denies loss of vision and Denies eye pain ENT: Denies dizziness Cardiovascular: Cardiovascular: Reports no additional cardiovascular complaints, Denies chest pain, Denies lightheadedness, Denies Loss of Consciousness and Reports dyspnea Respiratory: Respiratory: Reports no additional respiratory complaints and Reports dyspnea Gastrointestinal: Gastrointestinal: Reports no additional gastrointestinal complaints, Denies abdominal pain, Denies melena, Denies hematochezia, Denies change in bowel habits and Denies change in stool character Genitourinary: Genitourinary: Reports no additional male genitourinary complaints, Denies hematuria, Denies oliguria, Denies difficulty urinating, Denies dysuria, Denies urinary frequency, Denies urinary hesitancy, Denies urinary incontinence and Denies urinary urgency Musculoskeletal: Musculoskeletal: Reports no additional musculoskeletal complaints, Denies numbness and Denies tingling Neurologic: Denies dizziness, Denies loss of vision, Denies numbness and Denies tingling Comments: syncope Psychiatric: Psychiatric: Reports no additional psychiatric complaints Endocrine: Endocrine: Reports no additional endocrine complaints Hematologic/Lymphatic: Hematologic/Lymphatic: Reports no additional hematologic/lymphatic complaints Allergic/Immunologic: Allergic/Immunologic: Reports no additional allergic/immunologic complaints PMFSH Past Medical History Attestation statement: The following information was validated with the patient. (all information validated with the patient's daughter) Source: old records reviewed, obtained from family (patient's daughter provided additional history and confirmed the history provided by the patient.) and nursing notes reviewed Medical History Tachy-garrison syndrome Hypertension, essential, benign Hyperlipidemia Atrial fibrillation Osteoarthritis Pacemaker (~2008) Current use of anticoagulant therapy Surgical History History of colonoscopy History of eye surgery History of appendectomy Status post left foot surgery (~02/2020) Amputated toe of left foot History of cardiac pacemaker History of cardiac radiofrequency ablation (RFA) Family History Family History Father No problems noted. Mother No problems noted. Social History Social History Household Members: Spouse Housing: House Do you presently have visiting nurse or other home services: No Alcohol intake: current Alcohol intake frequency: a few times a week Alcohol type: beer Patient Tobacco Use Status: Former Tobacco user Years Smoked: 15 Smoked in Last 30 Days: No e-Cigarette/Vaping Use: Never Used Use of substances other than those prescribed or required for medical reasons: No Advance Directives: Yes Advance Directives on File: Yes Advance Directives Date on File: 09/27/22 Do you have a plan to hurt others: No Plan service: No Current occupational status: retired Hearing needs: No Vision needs: Yes (Glasses) Physical Exam ED Vital Signs: Vital Signs - 24 hr 08/10/24 11:55 08/10/24 12:16 08/10/24 13:26 Temperature 98.6 F 98.4 F Pulse Rate 68 68 69 Respiratory Rate 20 20 18 Blood Pressure 124/69 112/63 Pulse Oximetry 99 100 98 Oxygen Delivery Method Room Air Room Air Room Air BMI result Body Mass Index 28.4 Const General: cooperative, no acute distress, alert and awake Nutritional Appearance: well nourished Orientation/consciousness: patient oriented x3 Limitations: no limitations HENMT Head: Yes normal to inspection and Yes atraumatic Ears: hearing grossly normal bilaterally and external ears normal General nose exam: Normal external nose present, no nasal discharge noted and no epistaxis Face and sinus: Yes normal facial exam, No abrasion and No laceration Mouth: Normal oral and palatal mucosa present, no drooling and no muffled voice Eyes General: appearance normal, both eyes and all related structures Periorbital: periorbital findings normal Eyelids: Yes eyelids normal Conjunctivae: conjunctivae normal Pupils: Equal, round and reactive pupils present EOM: EOMs intact bilaterally Neck Neck: Yes normal visual inspection, Yes full ROM and Yes no lymphadenopathy Chest Chest palpation & inspection: normal inspection of the chest Resp Effort & Inspection: normal respiratory effort and able to speak in complete sentences GI Inspection: Yes normal to inspection Neuro General: patient oriented x3 and moves all extremities Cranial nerves: Yes Equal, round and reactive pupils present Cognition (Neuro): normal cognition Extrem Other: 3+ pitting edema bilateral lower extremities General: Yes full ROM and Yes capillary refill normal Psych Appearance: grossly normal Mental Status: mental status grossly normal Affect: normal affect Attitude: cooperative Thought process: Normal thought process present Thought content: Normal thought content present Insight: Good insight present (Psych) Medications Administered Discontinued Medications Generic Name Dose Route Start Last Admin Trade Name Freq PRN Reason Stop Dose Admin Furosemide 40 mg 08/10/24 13:10 08/10/24 13:41 Furosemide 40 Mg/4 Ml Vial IVPUSH 08/10/24 13:11 40 mg ONCE ONE Administration Protocol Magnesium Sulfate/Dextrose 1 gm in 100 mls @ 100 mls/hr 08/10/24 12:05 08/10/24 13:23 Magnesium Sulfate/D5w IV 08/10/24 13:04 Infused ONCE ONE Infusion Medical Decision Making Medical Decision Making MDM Narrative: Patient is an 88 year old assigned male at with a history of PAD, atrial fib on anti-coag, HLD, HTN, pacemaker, and recent CHF diagnosis presenting to the emergency department today with increased shortness of breath. Patient's physical exam was as noted in the physical exam portion of this note. Patient's blood work was unremarkable. Patient's urine showed no acute process. Patient's EKG showed a prolonged QTC for which the patient was given 2g of IV magnesium. Patient's chest x-ray showed evidence of CHF. Patient was given 40mg of IV lasix. Patient's clinical presentation is consistent with CHF exacerbation. I spoke to the hospitalist team who agreed to admission. I explained my physical exam findings as well as all test results to the patient and the patient's daughter. I answered all questions asked by the patient and the patient's daughter. Patient and the patient's daughter verbalized agreement and understanding with this treatment plan and admission. Differential Diagnosis Differential Diagnoses: The differential diagnosis associated with the presentation includes CHF exacerbatio PNA COVID-19 Influenza Admission/Observation Consideration of admission/observation: Escalation of care including admission/observation considered Patient admitted as noted in the MDM Rationale portion of this note. Consult Healthcare Provider Management of the patient was discussed with: Hospitalist (agreed to admission as noted in the MDM Rationale portion of this note.) Lab Data [facility] Lab Attestation statement: I reviewed the patient's lab results. My interpretation of these results are in the MDM Rationale portion of this note. 08/10/24 12:09 08/10/24 12:09 Labs: Lab Results 08/10/24 08/10/24 08/10/24 Range/Units 12:09 12:23 14:10 WBC 6.8 (4.8-10.8) X10*3/uL RBC 4.49 L (4.60-5.80) X10*6/uL Hgb 13.9 L (14.0-18.0) g/dl Hct 40.6 L (42.0-52.0) % MCV 90.4 (80.0-98.0) fL MCH 31.0 (27.0-33.0) pg MCHC 34.2 (31.0-36.0) g/dl RDW 14.4 (11.0-16.0) % Plt Count 248 (160-400) X10*3/uL MPV 9.6 (9.4-12.4) fL Immature Gran % (Auto) 0.6 H (0.0-0.4) % Neut % (Auto) 61.8 (45-73) % Lymph % (Auto) 27.7 (20-40) % Cobb % (Auto) 8.6 (2-11) % Eos % (Auto) 0.9 (0-4) % Baso % (Auto) 0.4 (0-2) % Lymph # (Auto) 1.9 (1.2-4.9) X10*3/uL Cobb # (Auto) 0.6 (0.1-1.2) X10*3/uL Eos # (Auto) 0.1 (0.0-0.4) X10*3/uL Baso # (Auto) 0.0 (0.0-0.2) X10*3/uL Abs Immat Gran (auto) 0.04 H (0.00-0.03) X10*3/uL Absolute Neuts (auto) 4.2 (2.0-8.3) x10*3/uL Absolute Nucleated RBC 0.000 (0.0-0.012) X10*3/uL Nucleated RBC % (auto) 0.0 (0.0-0.2) /100WBC PT 23.8 H D (10.9-12.4) SEC INR 2.0 H (0.9-1.1) APTT 33.8 (26.0-36.8) SEC VBG pH 7.52 H (7.32-7.43) VBG pCO2 43 mmHg VBG pO2 23 mmHg VBG HCO3 36 H (22-26) mmol/L VBG O2 Saturation < 30.0 % VBG Base Excess 12.1 mmol/L Sodium 134 L (135-145) mmol/L Potassium 3.5 (3.3-5.1) mmol/L Chloride 94 L (96-108) mmol/L Carbon Dioxide 31 H (22-29) mmol/L Anion Gap 13 (12-20) BUN 13 (9-16) mg/dL Creatinine 0.85 (0.5-1.4) mg/dL Estim Creat Clear Calc 78.0 Estimated GFR > 60 Random Glucose 103 (60-115) mg/dL Calcium 9.2 (8.4-10.2) mg/dL Magnesium 2.0 (1.6-2.6) mg/dL Total Bilirubin 0.8 (0.0-1.0) mg/dL AST 33 (5-37) U/L ALT 21 (0-40) U/L Alkaline Phosphatase 37 L (39-117) U/L Troponin I High Sens 3.9 (<3.5-35.0) ng/L B-Natriuretic Peptide 54 (<100) pg/mL Total Protein 7.6 (6.5-8.0) g/dL Albumin 4.2 (3.5-5.0) g/dL Urine Color Yellow Urine Appearance Clear Urine pH 7.5 (5.0-9.0) Ur Specific [place] 1.010 (1.005-1.025) Urine Protein Trace (Neg-Trace) mg/dL Urine Glucose (UA) Negative (Negative) mg/dL Urine Ketones Negative (Negative) mg/dL Urine Blood Moderate (2+) H (Negative) Urine Nitrite Negative (Negative) Ur Leukocyte Esterase Negative (Negative) Urine RBC 11-20 H (0-2) /HPF Urine WBC 0-5 (0-5) /HPF Ur Squamous Epith Cells 0-2 (0-2) /HPF Urine Bacteria None Seen (None Seen) Hyaline Casts 0-2 (0-2) /LPF Respiratory Panel Gonzalez See Note Adenovirus (Rapid PCR) Not Detected (Not Detect.) B.pert (TEM-PCR) Not Detected (Not Detect.) B.parapertussis DNA PCR Not Detected (Not Detect.) C. pneumoniae DNA (PCR) Not Detected (Not Detect.) Coronavirus OC43 (PCR) Not Detected (Not Detect.) Coronavirus HKU1 (PCR) Not Detected (Not Detect.) Coronavirus 229E (PCR) Not Detected (Not Detect.) Coronavirus NL63 (PCR) Not Detected (Not Detect.) Human Metapneumovir PCR Not Detected (Not Detect.) Influenza A (RT-PCR) Not Detected (Not Detect.) Influenza Type A (PCR) NEGATIVE (Negative) Influenza B (RT-PCR) Not Detected (Not Detect.) Influenza Type B (PCR) NEGATIVE (Negative) M. pneumoniae (PCR) Not Detected (Not Detect.) Parainfluenza 1 (PCR) Not Detected (Not Detect.) Parainfluenza 2 (PCR) Not Detected (Not Detect.) Parainfluenza 3 (PCR) Not Detected (Not Detect.) Parainfluenza 4 (PCR) Not Detected (Not Detect.) RSV (PCR) Not Detected (Not Detect.) RSV RNA Qual (PCR) NEGATIVE (Negative) Entero/Rhino (PCR) Not Detected (Not Detect.) SARS-CoV-2 RNA (RT-PCR) NEGATIVE Not Detected (Negative) Independent Interpretation I performed an independent interpretation of an: EKG and Plain X-Ray Interpretation: My interpretation is in agreement with the radiologist's impression of this imaging study. L EXAMINATION: XR CHEST CLINICAL INFORMATION: SOB COMPARISON: Chest CT 08/02/2024 TECHNIQUE: 2 views of the chest were obtained. FINDINGS: There is mild cardiomegaly. There is mild increased pulmonary vascularity. The lungs are expanded and clear. There are dual pacer electrodes in right atrium and right ventricle. No gross bony abnormality seen. XR/XR chest 2V IMPRESSION: Cardiomegaly with mild CHF. Electronically signed by: Francisco Fajardo MD 08/10/2024 01:01 PM [facility] Dictated By: Francisco Fajardo MD Signed By: Electronically signed by Francisco Fajardo MD 08/10/24 1301 Vent. Rate: 069 BPM Atrial Rate: 000 BPM P-R Int: 000 ms QRS Dur: 090 ms QT Int: 486 ms P-R-T Axes: 000 033 002 degrees QTc Int: 520 ms Atrial fibrillation with frequent ventricular-paced complexes Nonspecific ST and T wave abnormality Prolonged QT When compared with ECG of 02-AUG-2024 11:38, Electronic ventricular pacemaker has replaced Atrial fibrillation Vent. rate has decreased BY 45 BPM DD/ [id number] Radiology Impression Discussion of test interpretation with radiology: I have reviewed the radiologist's reading. Independent Historian Clinical information obtained from an independent historian. History obtained from or confirmed by: EMS (EMS provided additional history and confirmed the history provided by the patient.) and Other (patient's daughter provided additional history and confirmed the history provided by the patient.) Critical Care Time Critical Care Time Critical Care Time: Yes Total Critical Care Time: 44 Attestation: I spent 44 minutes of Critical Care Time with this patient. This does not include time spent on separately reported billable procedures. Discharge Plan Discharge Clinical Impression: Acute exacerbation of congestive heart failure Patient Disposition: Admitted As Inpatient
--- NOTE | 2024-08-10 11:44 | MHC.CM.ED ---
Received notification from [facility] that patient is active with their agency. Return referral made in [facility] so agency can follow for d/c needs.
--- NOTE | 2024-08-10 11:47 | ECG_ITS ---
Test Reason : sob Blood Pressure : / mmHG Vent. Rate : 069 BPM Atrial Rate : 000 BPM P-R Int : 000 ms QRS Dur : 090 ms QT Int : 486 ms P-R-T Axes : 000 033 002 degrees QTc Int : 520 ms Atrial fibrillation with frequent ventricular-paced complexes Nonspecific ST and T wave abnormality Prolonged QT Abnormal ECG When compared with ECG of 02-AUG-2024 11:38, Electronic ventricular pacemaker complexes are now present Vent. rate has decreased BY 45 BPM Referred By: Eboni Douglass Electronically Signed By:NORIS HERRERA MD
[2024-08-10] MEDS: Magnesium Sulfate/D5W 1 GM/100 ML PIGGYBACK IV (12:15)
--- NOTE | 2024-08-10 12:15 | PC.NURSE ---
a&ox4. vss and up to date. nsr on the child monitor. pt presents to the ED after a recent CHF diagnosis c/o dyspnea on exertion x this am. pt reports he got up to make his breakfast and became increasingly sob while ambulating. pt then went to go sit on the couch where he was then noted to have fallen asleep on the couch. VNA services then came to assess the patient where he was found to be easily aroused to verbal stimuli. VNA services then decided that it would be best for pt to come in to be evaluated. upon ED arrival - pt noted to be 99% on RA. slight wob noted. pt positioned upright to promote patent airway. 20gIV in the right AC - labs obtained/sent to lab. ekg performed by tech. medication administered per provider order. pt waiting for chest xray to be completed at this time. plan of care ongoing. call dean placed within reach.
[2024-08-10 12:20] LABS: MANUAL DIFF FLAG NO
[2024-08-10 12:23] LABS: Basophils Percent Auto 0.4 % (0-2); Eosinophils Absolute Auto 0.1 X10*3/uL (0.0-0.4); Eosinophils Percent Auto 0.9 % (0-4); Hematocrit 40.6 % (42.0-52.0); Hemoglobin 13.9 g/dl (14.0-18.0); Imm Gran Abs Auto 0.04 X10*3/uL (0.00-0.03); Imm Gran Pct Auto 0.6 % (0.0-0.4); Lymphocytes Absolute Auto 1.9 X10*3/uL (1.2-4.9); Lymphocytes Percent Auto 27.7 % (20-40); Mean Corpuscular HGB Conc 34.2 g/dl (31.0-36.0); Mean Corpuscular Volume 90.4 fL (80.0-98.0); Mean Platelet Volume 9.6 fL (9.4-12.4); Monocytes Absolute Auto 0.6 X10*3/uL (0.1-1.2); Monocytes Percent Auto 8.6 % (2-11); Neutrophils Absolute Auto 4.2 x10*3/uL (2.0-8.3); Neutrophils Percent Auto 61.8 % (45-73); Platelet Count 248 X10*3/uL (160-400); Red Blood Count 4.49 X10*6/uL (4.60-5.80); Red Cell Distribution Width 14.4 % (11.0-16.0); White Blood Count 6.8 X10*3/uL (4.8-10.8)
[2024-08-10 12:28] LABS: Prothrombin Time 23.8 SEC (10.9-12.4)
[2024-08-10 12:30] LABS: VBG Base Excess 12.1 mmol/L; VBG HCO3 36 mmol/L (22-26); VBG O2 % Saturation < 30.0 %; VBG pCO2 43 mmHg; VBG pH 7.52 (7.32-7.43); VBG pO2 23 mmHg
[2024-08-10 12:30] LABS: Partial Thromboplastin Time 33.8 SEC (26.0-36.8)
[2024-08-10 12:33] LABS: Venous Blood Gas Refer to POC result
[2024-08-10 12:59] LABS: Alanine Aminotransferase 21 U/L (0-40); Albumin Level 4.2 g/dL (3.5-5.0); Alkaline Phosphatase 37 U/L (39-117); Anion Gap 13 (12-20); Aspartate Amino Transferase 33 U/L (5-37); Bilirubin Total 0.8 mg/dL (0.0-1.0); Blood Urea Nitrogen 13 mg/dL (9-16); Calcium 9.2 mg/dL (8.4-10.2); Carbon Dioxide 31 mmol/L (22-29); Chloride 94 mmol/L (96-108); Estimated Glomerular Filt Rate > 60; Glucose Random 103 mg/dL (60-115); Potassium 3.5 mmol/L (3.3-5.1); Sodium 134 mmol/L (135-145); Total Protein 7.6 g/dL (6.5-8.0)
[2024-08-10 13:04] LABS: B Type Natriuretic Peptide 54 pg/mL (<100)
[2024-08-10 13:06] LABS: Influenza A PCR NEGATIVE (Negative); Influenza B PCR NEGATIVE (Negative); Resp Syncy Virus RNA Qual PCR NEGATIVE (Negative); SARS COV2 PCR INHOUSE NEGATIVE (Negative); Troponin-I High Sensitivity 3.9 ng/L (<3.5-35.0)
[2024-08-10] MEDS: Furosemide 40 MG/4 ML VIAL IVPUSH (13:41)
--- NOTE | 2024-08-10 13:42 | PC.NURSE ---
texas catheter applied. lasix administered per provider order. will obtain UA/measure output when able. pt otherwise continues to rest in no apparent distress. no sob/wob noted. respirations even/labored. plan of care ongoing.
[2024-08-10 14:17] LABS: Appearance Urine Clear; Color Urine Yellow; Glucose Urine UA Negative (Negative); Leukocyte Esterase Urine Negative (Negative); Nitrite Urine Negative (Negative); PH 7.5 (5.0-9.0); UMIC TRIGGER UACC YES; Urine Blood Moderate (2+) (Negative); Urine Ketones Negative (Negative); Urine Protein Trace mg/dL (Neg-Trace)
[2024-08-10 14:22] LABS: Bacteria Urine None Seen (None Seen); Hyaline Casts Urine 0-2 /LPF (0-2); Squamous Epithelial Cell Urine 0-2 /HPF (0-2); WBC Urine 0-5 /HPF (0-5)
--- NOTE | 2024-08-10 15:01 | P.HPHOSP_ITS ---
History of Present Illness Date of Service: 08/10/24 Attending physician on admission: Zackery North Chief Complaint: dizziness This is an 88 year old male with history of atrial fibrillation, recent admission for uncontrolled AFib and cellulitis who presents to the emergency department with dizziness. He reports feeling lightheaded with change in position which has been going on for some time, several months but happened more frequently today. He added episode of lightheadedness while he was walking into the living room, an episode after bending over and standing up quickly. He denies any shortness of breath in general, chest pain, palpitations, nausea, vomiting. He has no orthopnea or PND. He did report an episode of shortness of breath after bending over and then standing up quickly which improved after rest. He does report lower extremity edema however he reports it is improved compared to his previous admission and that his swelling goes up and down. During his recent admission his dose of Cardizem was increased to 240 mg daily. In the emergency department chest x-ray showed mild CHF although his BNP was normal. He received a dose of Lasix in the decision was made to admit him to the hospital for further management. Review of Systems 2 Review of Systems: Yes all other systems are reviewed and are negative Constitutional: Constitutional: Denies chills and Denies fever(s) Cardiovascular: Cardiovascular: Denies chest pain and Denies palpitations Endocrine: Endocrine: Denies palpitations [facility] Medical History Tachy-garrison syndrome Hypertension, essential, benign Hyperlipidemia Atrial fibrillation Osteoarthritis Pacemaker (~2008) Current use of anticoagulant therapy Family History Father No problems noted. Mother No problems noted. Surgical History History of colonoscopy History of eye surgery History of appendectomy Status post left foot surgery (~02/2020) Amputated toe of left foot History of cardiac pacemaker History of cardiac radiofrequency ablation (RFA) Social History Household Members: Spouse Housing: House Do you presently have visiting nurse or other home services: No Alcohol intake: current Alcohol intake frequency: a few times a week Alcohol type: beer Patient Tobacco Use Status: Former Tobacco user Years Smoked: 15 Smoked in Last 30 Days: No e-Cigarette/Vaping Use: Never Used Use of substances other than those prescribed or required for medical reasons: No Advance Directives: Yes Advance Directives on File: Yes Advance Directives Date on File: 09/27/22 Do you have a plan to hurt others: No Plan Nutrition Risks: No Nutritional Risk service: No Current occupational status: retired Hearing needs: No Vision needs: Yes (Glasses) Meds Allergies Allergy/AdvReac Type Severity Reaction Status Date / Time No Known Allergies Allergy Verified 08/10/24 11:57 [No Known Allergies*] Home Medications ?Medication ?Instructions ?Recorded ?Confirmed ?Last Taken ?Type magnesium 200 mg tablet 200 mg PO DAILY 10/17/23 08/10/24 08/10/24 History atorvastatin 20 mg tablet 20 mg PO BEDTIME 08/02/24 08/10/24 08/10/24 History warfarin 2 mg tablet 2 mg PO DAILY@1800 08/02/24 08/10/24 08/10/24 History Physical Exam 2 Vital Signs and Narrative: Vital Signs: Last Vital Signs Temp 98.4 F 08/10/24 13:26 Pulse 69 08/10/24 13:26 Resp 18 08/10/24 13:26 BP 112/63 08/10/24 13:26 Pulse Ox 98 08/10/24 13:26 O2 Del Method Room Air 08/10/24 13:26 BMI result Body Mass Index 28.4 Const: General: cooperative, comfortable, no acute distress, alert and awake Nutritional Appearance: overweight Orientation/consciousness: patient oriented x3 Resp: Effort & Inspection: normal respiratory effort, able to speak in complete sentences, no respiratory distress and no use of accessory muscles A uscultation: clear to auscultation bilaterally Cardio: Rate: regular rate GI: Inspection: No distended Palpation (GI): Soft to palpation and nontender Skin: Other: scab left knee Neuro: General: patient oriented x3, moves all extremities and CN's II-XI intact bilaterally Extrem: Other: 2+ edema b/l Results Labs 08/10/24 12:09 08/10/24 12:09 Labs: Laboratory Results - last 24 hr 01/03/25 01/03/25 01/03/25 12:09 12:23 14:10 MCV 90.4 MCH 31.0 MCHC 34.2 RDW 14.4 Plt Count 248 MPV 9.6 Immature Gran % (Auto) 0.6 H Neut % (Auto) 61.8 Lymph % (Auto) 27.7 [place] % (Auto) 8.6 Eos % (Auto) 0.9 Baso % (Auto) 0.4 Lymph # (Auto) 1.9 [place] # (Auto) 0.6 Eos # (Auto) 0.1 Baso # (Auto) 0.0 Abs Immat Gran (auto) 0.04 H Absolute Neuts (auto) 4.2 Absolute Nucleated RBC 0.000 Nucleated RBC % (auto) 0.0 PT 23.8 H D INR 2.0 H APTT 33.8 VBG pH 7.52 H VBG pCO2 43 VBG pO2 23 VBG HCO3 36 H VBG O2 Saturation < 30.0 VBG Base Excess 12.1 Anion Gap 13 Estim Creat Clear Calc 78.0 Estimated GFR > 60 Random Glucose 103 Calcium 9.2 Magnesium 2.0 Total Bilirubin 0.8 AST 33 ALT 21 Alkaline Phosphatase 37 L Troponin I High Sens 3.9 B-Natriuretic Peptide 54 Total Protein 7.6 Albumin 4.2 Urine Color Yellow Urine Appearance Clear Urine pH 7.5 Ur Specific [place] 1.010 Urine Protein Trace Urine Glucose (UA) Negative Urine Ketones Negative Urine Blood Moderate (2+) H Urine Nitrite Negative Ur Leukocyte Esterase Negative Urine RBC 11-20 H Urine WBC 0-5 Ur Squamous Epith Cells 0-2 Urine Bacteria None Seen Hyaline Casts 0-2 Influenza Type A (PCR) NEGATIVE Influenza Type B (PCR) NEGATIVE RSV RNA Qual (PCR) NEGATIVE SARS-CoV-2 RNA (RT-PCR) NEGATIVE Imaging Radiologist's Impressions: Impressions Chest X-Ray 08/10/24 12:20 IMPRESSION: Cardiomegaly with mild CHF. Electronically signed by: Francisco Fajardo MD 08/10/2024 01:01 PM [facility] Assessment and Plan (1) Dizziness: Status: Acute Plan This is a 88-year-old male with history of atrial fibrillation on Coumadin, status post pacemaker placement, hypertension, recent admission for cellulitis and difficult to control atrial fibrillation who returns to the emergency department today with dizziness Dizziness history c/w orthostasis as mostly symptomatic with change in position; other possibility includes intermittent uncontrolled afib trop negative, BNP negative cardizem recently increased, will continue as previous notes indicate difficult to control atrial fibrillation Triamterene/hydrochlorothiazide also recently increased. We will hold for now, may need to be reduced Check orthostatic blood pressures Graham stockings HR currently controlled tele monitoring sob possible mild HFpEF EF preserved on echo from last week pt reported one episode of shortness of breath after bending over BNP normal, no hypoxia no PND, no orthopnea does have leg swelling and ?mild edema on cxr given lasix in ED, will hold off on further diuretics since pt primary symptom is dizziness Paroxysmal atrial fibrillation Continue Cardizem Continue Coumadin, INR 2.0 Follow INR daily BPH continue Proscar cellulitis from previous admission resolved end date of augmentin 08/13 DVT prophylaxis-Coumadin Quality Stroke Does the patient have a stroke diagnosis?: No VTE Prior VTE?: No VTE Risk Level:: Medical - moderate - high VTE Device Contraindication: Treatment Not Indicated VTE Drug Contraindication: N/A - Med Ordered
[2024-08-10 15:13] LABS: Adenovirus PCR Not Detected (Not Detect.); Bordetella parapertussis PCR Not Detected (Not Detect.); Bordetella pertussis PCR Not Detected (Not Detect.); Chlamydia pneumoniae PCR Not Detected (Not Detect.); Coronavirus 229E PCR Not Detected (Not Detect.); Coronavirus HKU1 PCR Not Detected (Not Detect.); Coronavirus NL63 PCR Not Detected (Not Detect.); Coronavirus OC43 PCR Not Detected (Not Detect.); Human metapneumovirus PCR Not Detected (Not Detect.); Influenza A PCR Not Detected (Not Detect.); Influenza B PCR Not Detected (Not Detect.); Mycoplasma pneumoniae PCR Not Detected (Not Detect.); Parainfluenza 1 PCR Not Detected (Not Detect.); Parainfluenza 2 PCR Not Detected (Not Detect.); Parainfluenza 3 PCR Not Detected (Not Detect.); Parainfluenza 4 PCR Not Detected (Not Detect.); RSV PCR Not Detected (Not Detect.); Rhino/Enterovirus PCR Not Detected (Not Detect.)
[2024-08-10 15:21] LABS: SARS-CoV-2 PCR Not Detected (Not Detect.)
[2024-08-10] MEDS: 0.9 % Sodium Chloride Flush 3 ML SYRINGE IVFLUSH ×2 (15:45→21:42)
--- NOTE | 2024-08-10 15:48 | PC.NURSE ---
Assumed care of this patient at 1500, patient resting quietly on stretcher at this time, NO SOB/WOB noted. Sating 98% on RA. Denies pain at this time. Awaiting bed assignment.
--- NOTE | 2024-08-10 16:36 | PHA.MEDREC ---
Addendum entered by Lacho Mccarty RPh 08/10/24 16:55: Reviewed by [facility] Original Note: Pharmacy Consult ? Medication Reconciliation Pharmacy has completed the medication reconciliation. spoke to patient and daughter at bedside to confirm med list. Patient states he was just discharged from [facility] [place]/06/24 and we discharged patient with Augmentin 500-125 mg End date 08/13/24 and increased patients Diltiazem HCi to 240 mg daily from 120 mg. Patient and daughter state patient received a call from the warfarin clinic to start taking Warfarin 2 mg daily because his INR was 2.9. patient has been taking 2 mg daily since 07/3024. last dose was last night.
--- NOTE | 2024-08-10 18:32 | PC.NURSE ---
Coumadin not stocked in [facility], pharmacy called, will send one down.
[2024-08-10] MEDS: Warfarin Sodium 2 MG TABLET PO (18:39)
[2024-08-10] MEDS: Amoxicillin/Potassium Clav 500 MG TABLET PO (21:13)
[2024-08-10] MEDS: Atorvastatin Calcium 20 MG TABLET PO (21:14)
[2024-08-11 05:52] VITALS: BP 105/69; PULSE 76; RESP 16; TEMP 36.3; O2SAT 96
[2024-08-11] MEDS: Acetaminophen 325 MG TABLET 650 MG PO (06:01)
[2024-08-11 06:32] LABS: Prothrombin Time 23.1 SEC (10.9-12.4)
[2024-08-11 06:37] LABS: Anion Gap 11 (12-20); Blood Urea Nitrogen 14 mg/dL (9-16); Calcium 8.9 mg/dL (8.4-10.2); Carbon Dioxide 33 mmol/L (22-29); Chloride 95 mmol/L (96-108); Creatinine Clr Calc Pharmacy 69.3; Estimated Glomerular Filt Rate > 60; Glucose Random 102 mg/dL (60-115); Potassium 3.4 mmol/L (3.3-5.1); Sodium 136 mmol/L (135-145)
[2024-08-11 08:45] VITALS: PULSE 80
[2024-08-11] MEDS: Magnesium Oxide 400 MG TABLET 200 MG PO (08:45)
[2024-08-11] MEDS: dilTIAZem HCL CD 240 MG CAP.ER.DEG PO (08:45)
[2024-08-11] MEDS: Amoxicillin/Potassium Clav 500 MG TABLET PO ×2 (08:46→21:14)
[2024-08-11] MEDS: Finasteride 5 MG TABLET PO (08:46)
[2024-08-11] MEDS: 0.9 % Sodium Chloride Flush 3 ML SYRINGE IVFLUSH ×2 (08:49→17:44)
--- NOTE | 2024-08-11 10:49 | HO.PM.IMPN ---
Subjective Subjective Date of Service: 08/11/24 Interval History: Still with intermittent burst of rapid ventricular response. From a cellulitis standpoint doing extremely well Review of Systems Denies chest pain Denies shortness of breath Denies nausea vomiting diarrhea Denies fever chills Physical Exam Vital Signs: Vital Signs: Last Vital Signs Temp 97.4 F 08/11/24 05:52 Pulse 80 08/11/24 08:45 Resp 16 08/11/24 05:52 BP 105/69 08/11/24 05:52 Pulse Ox 96 08/11/24 05:52 O2 Del Method Room Air 08/11/24 05:52 BMI result Body Mass Index 25.4 Appearing in no acute distress lung sounds are clear to auscultation heart regular rate rhythm, clear S1, S2 positive bowel sounds, abdomen is soft, nontender neuro patient is alert x3, no focal deficits Objective Data Active Medications Acetaminophen (Acetaminophen 325 Mg Tablet) 650 mg PO Q6H PRN PRN Reason: Pain, Mild 1-3,fever,headache Last Admin: 08/11/24 06:01 Dose: 650 mg Documented By: TAMEKA Amoxicillin/Clavulanate Potassium (Amoxicillin/Potassium Clav 500 Mg Tablet) 500 mg PO BID [facility] Last Admin: 08/11/24 08:46 Dose: 500 mg Documented By: JAZMÍN Atorvastatin Calcium (Atorvastatin Calcium 20 Mg Tablet) 20 mg PO BEDTIME [facility] Last Admin: 08/10/24 21:14 Dose: 20 mg Documented By: TAMEKA Calcium Carbonate (Calcium Carbonate 750 Mg Tab.Chew) 750 mg PO Q4H PRN PRN Reason: Heartburn Diltiazem HCl (Diltiazem Hcl Cd 240 Mg Cap.Er.Deg) 240 mg PO DAILY [facility]; Protocol Last Admin: 08/11/24 08:45 Dose: 240 mg Documented By: JAZMÍN Finasteride (Finasteride 5 Mg Tablet) 5 mg PO DAILY [facility] Last Admin: 08/11/24 08:46 Dose: 5 mg Documented By: JAZMÍN Magnesium Oxide (Magnesium Oxide 400 Mg Tablet) 200 mg PO DAILY [facility] Last Admin: 08/11/24 08:45 Dose: 200 mg Documented By: JAZMÍN Melatonin (Melatonin 3 Mg Tablet) 6 mg PO BEDTIME PRN PRN Reason: Insomnia Polyethylene Glycol (Polyethylene Glycol 3350 17 Gm Powd.Pack) 17 gm PO DAILY PRN PRN Reason: Constipation Sodium Chloride (0.9 % Sodium Chloride Flush 3 Ml Syringe) 3 ml IVFLUSH QSHIFT [facility] Last Admin: 08/11/24 08:49 Dose: 3 ml Documented By: NALINIOTPADonnie Warfarin Sodium (Warfarin Sodium 2 Mg Tablet) 2 mg PO DAILY@1800 [facility] Last Admin: 08/10/24 18:39 Dose: 2 mg Documented By: DITOLC Labs 08/10/24 12:09 08/11/24 06:04 Labs: Laboratory Results - last 24 hr 08/10/24 08/10/24 08/10/24 12:09 12:23 14:10 MCV 90.4 MCH 31.0 MCHC 34.2 RDW 14.4 Plt Count 248 MPV 9.6 Immature Gran % (Auto) 0.6 H Neut % (Auto) 61.8 Lymph % (Auto) 27.7 [place] % (Auto) 8.6 Eos % (Auto) 0.9 Baso % (Auto) 0.4 Lymph # (Auto) 1.9 [place] # (Auto) 0.6 Eos # (Auto) 0.1 Baso # (Auto) 0.0 Abs Immat Gran (auto) 0.04 H Absolute Neuts (auto) 4.2 Absolute Nucleated RBC 0.000 Nucleated RBC % (auto) 0.0 Hold Purple Top PT 23.8 H D INR 2.0 H APTT 33.8 VBG pH 7.52 H VBG pCO2 43 VBG pO2 23 VBG HCO3 36 H VBG O2 Saturation < 30.0 VBG Base Excess 12.1 Anion Gap 13 Estim Creat Clear Calc 78.0 Estimated GFR > 60 Random Glucose 103 Calcium 9.2 Magnesium 2.0 Total Bilirubin 0.8 AST 33 ALT 21 Alkaline Phosphatase 37 L Troponin I High Sens 3.9 B-Natriuretic Peptide 54 Total Protein 7.6 Albumin 4.2 Urine Color Yellow Urine Appearance Clear Urine pH 7.5 Ur Specific [place] 1.010 Urine Protein Trace Urine Glucose (UA) Negative Urine Ketones Negative Urine Blood Moderate (2+) H Urine Nitrite Negative Ur Leukocyte Esterase Negative Urine RBC 11-20 H Urine WBC 0-5 Ur Squamous Epith Cells 0-2 Urine Bacteria None Seen Hyaline Casts 0-2 Respiratory Panel [place] See Note Adenovirus (Rapid PCR) Not Detected B.pert (TEM-PCR) Not Detected B.parapertussis DNA PCR Not Detected C. pneumoniae DNA (PCR) Not Detected Coronavirus OC43 (PCR) Not Detected Coronavirus HKU1 (PCR) Not Detected Coronavirus 229E (PCR) Not Detected Coronavirus NL63 (PCR) Not Detected Human Metapneumovir PCR Not Detected Influenza A (RT-PCR) Not Detected Influenza Type A (PCR) NEGATIVE Influenza B (RT-PCR) Not Detected Influenza Type B (PCR) NEGATIVE M. pneumoniae (PCR) Not Detected Parainfluenza 1 (PCR) Not Detected Parainfluenza 2 (PCR) Not Detected Parainfluenza 3 (PCR) Not Detected Parainfluenza 4 (PCR) Not Detected RSV (PCR) Not Detected RSV RNA Qual (PCR) NEGATIVE Entero/Rhino (PCR) Not Detected SARS-CoV-2 RNA (RT-PCR) NEGATIVE Not Detected 08/11/24 06:04 MCV MCH MCHC RDW Plt Count MPV Immature Gran % (Auto) Neut % (Auto) Lymph % (Auto) [place] % (Auto) Eos % (Auto) Baso % (Auto) Lymph # (Auto) [place] # (Auto) Eos # (Auto) Baso # (Auto) Abs Immat Gran (auto) Absolute Neuts (auto) Absolute Nucleated RBC Nucleated RBC % (auto) Hold Purple Top SEE NOTE PT 23.1 H INR 2.0 H APTT VBG pH VBG pCO2 VBG pO2 VBG HCO3 VBG O2 Saturation VBG Base Excess Anion Gap 11 L Estim Creat Clear Calc 69.3 Estimated GFR > 60 Random Glucose 102 Calcium 8.9 Magnesium Total Bilirubin AST ALT Alkaline Phosphatase Troponin I High Sens B-Natriuretic Peptide Total Protein Albumin Urine Color Urine Appearance Urine pH Ur Specific [place] Urine Protein Urine Glucose (UA) Urine Ketones Urine Blood Urine Nitrite Ur Leukocyte Esterase Urine RBC Urine WBC Ur Squamous Epith Cells Urine Bacteria Hyaline Casts Respiratory Panel [place] Adenovirus (Rapid PCR) B.pert (TEM-PCR) B.parapertussis DNA PCR C. pneumoniae DNA (PCR) Coronavirus OC43 (PCR) Coronavirus HKU1 (PCR) Coronavirus 229E (PCR) Coronavirus NL63 (PCR) Human Metapneumovir PCR Influenza A (RT-PCR) Influenza Type A (PCR) Influenza B (RT-PCR) Influenza Type B (PCR) M. 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 Pt admitted to the hospital for significantly increasing lower leg edema concerning for new onset CHF as well as for left lower extremity cellulitis that failed outpatient therapy. Left lower extremity edema/cellulitis improvement overnight with antibiotic therapy ceftriaxone/vancomycin potassium normalized with repletion Follow up renals/divalents in am Persistent AFib episode of rapid ventricular response refractory to IV Lopressor Cardizem increased to 180. Follow response HTN acceptable control on current therapies adjust as indicated Full Code warfarin Patient will require ongoing hospitalization to treat cellulitis with IV antibiotics and for IV Cardizem to control atrial fibrillation. Patient will also need specialty consultation Quality Stroke Does the patient have a stroke diagnosis?: No VTE Prior VTE?: No VTE Risk Level:: Medical - moderate - high VTE Device Contraindication: Treatment Not Indicated VTE Drug Contraindication: N/A - Med Ordered
--- NOTE | 2024-08-11 11:53 | MHC.CM.PN ---
PT REPORTS HE LIVES WITH HIS AND HIS DAUGHTER RECENTLY MOVED IN TO ASSIST PRN PT SAYS HE HAS A VNA,, BUT HE DOES NOT KNOW THE AGENCY VM MESSAGE LEFT FOR PTS DAUGHTER REQUESTING A RETURN CALL WITH VNA INFO PT USES A [employer] FOR DME COPY OF HCP REQUESTED, PT STATES IT IS HIS DAUGHTEROPHELIA PCP: KELSEY VAZQUEZ IMM DELIVERED DCP: HOME RESUME VNA DAUGHTER TO TRANSPORT
[2024-08-11 14:00] VITALS: BP 101/56; PULSE 80; RESP 14; TEMP 37.3; O2SAT 98
[2024-08-11] MEDS: Warfarin Sodium 2 MG TABLET PO (17:44)
[2024-08-11] MEDS: Atorvastatin Calcium 20 MG TABLET PO (21:14)
[2024-08-11 22:00] VITALS: BP 112/63; PULSE 73; RESP 16; TEMP 37.3; O2SAT 95
[2024-08-12] MEDS: 0.9 % Sodium Chloride Flush 3 ML SYRINGE IVFLUSH ×4 (00:13→20:27)
[2024-08-12 06:00] VITALS: BP 129/66; PULSE 78; RESP 17; TEMP 36.2; O2SAT 97
[2024-08-12 07:13] LABS: Prothrombin Time 23.5 SEC (10.9-12.4)
[2024-08-12] MEDS: Magnesium Oxide 400 MG TABLET 200 MG PO (08:40)
[2024-08-12] MEDS: dilTIAZem HCL CD 240 MG CAP.ER.DEG PO (08:40)
[2024-08-12] MEDS: Amoxicillin/Potassium Clav 500 MG TABLET PO ×2 (08:40→20:27)
[2024-08-12] MEDS: Finasteride 5 MG TABLET PO (08:40)
--- NOTE | 2024-08-12 10:22 | HO.PM.IMPN ---
Subjective Subjective Date of Service: 08/12/24 Interval History: Follow up Dizziness From a cellulitis standpoint doing extremely well still feeling weak Review of Systems Denies chest pain Denies shortness of breath Denies nausea vomiting diarrhea Denies fever chills Physical Exam Vital Signs: Vital Signs: Last Vital Signs Temp 97.1 F 08/12/24 06:00 Pulse 78 08/12/24 06:00 Resp 17 08/12/24 06:00 BP 129/66 08/12/24 06:00 Pulse Ox 97 08/12/24 06:00 O2 Del Method Room Air 08/12/24 06:00 BMI result Body Mass Index 25.4 Appearing in no acute distress lung sounds are clear to auscultation heart regular rate rhythm, clear S1, S2 positive bowel sounds, abdomen is soft, nontender neuro patient is alert x3, no focal deficits Objective Data Active Medications Acetaminophen (Acetaminophen 325 Mg Tablet) 650 mg PO Q6H PRN PRN Reason: Pain, Mild 1-3,fever,headache Last Admin: 08/11/24 06:01 Dose: 650 mg Documented By: TAMEKA Amoxicillin/Clavulanate Potassium (Amoxicillin/Potassium Clav 500 Mg Tablet) 500 mg PO BID [facility] Last Admin: 08/12/24 08:40 Dose: 500 mg Documented By: JAZMÍN Atorvastatin Calcium (Atorvastatin Calcium 20 Mg Tablet) 20 mg PO BEDTIME [facility] Last Admin: 08/11/24 21:14 Dose: 20 mg Documented By: ARASH Calcium Carbonate (Calcium Carbonate 750 Mg Tab.Chew) 750 mg PO Q4H PRN PRN Reason: Heartburn Diltiazem HCl (Diltiazem Hcl Cd 240 Mg Cap.Er.Deg) 240 mg PO DAILY [facility]; Protocol Last Admin: 08/12/24 08:40 Dose: 240 mg Documented By: JAZMÍN Finasteride (Finasteride 5 Mg Tablet) 5 mg PO DAILY [facility] Last Admin: 08/12/24 08:40 Dose: 5 mg Documented By: JAZMÍN Magnesium Oxide (Magnesium Oxide 400 Mg Tablet) 200 mg PO DAILY [facility] Last Admin: 08/12/24 08:40 Dose: 200 mg Documented By: JAMZÍN Melatonin (Melatonin 3 Mg Tablet) 6 mg PO BEDTIME PRN PRN Reason: Insomnia Polyethylene Glycol (Polyethylene Glycol 3350 17 Gm Powd.Pack) 17 gm PO DAILY PRN PRN Reason: Constipation Sodium Chloride (0.9 % Sodium Chloride Flush 3 Ml Syringe) 3 ml IVFLUSH QSHIFT [facility] Last Admin: 08/12/24 08:42 Dose: 3 ml Documented By: JAZMÍN Warfarin Sodium (Warfarin Sodium 2 Mg Tablet) 2 mg PO DAILY@1800 [facility] Last Admin: 08/11/24 17:44 Dose: 2 mg Documented By: JAZMÍN Labs 08/10/24 12:09 08/11/24 06:04 Labs: Laboratory Results - last 24 hr 08/12/24 06:18 Hold Purple Top SEE NOTE PT 23.5 H INR 2.0 H Assessment and Plan (1) Cellulitis: Status: Resolved (2) Atrial fibrillation with rapid ventricular response: Status: Resolved Plan 88-year-old male with a PMH significant for?persistent AFib s/p ablation x2 and cardioversion on diltiazem and Coumadin, 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 Pt admitted to the hospital for significantly increasing lower leg edema concerning for new onset CHF as well as for left lower extremity cellulitis that failed outpatient therapy. Left lower extremity edema/cellulitis improvement with antibiotic therapy continue augmentin potassium normalized with repletion Persistent AFib. resolved episode of rapid ventricular response refractory to IV Lopressor ocassional dizziness, neg orthos continue Cardizem 240 HTN acceptable control on current therapies adjust as indicated BPH continue proscar Full Code warfarin DISPO PT rec STR Patient will require ongoing hospitalization to treat cellulitis with IV antibiotics and for IV Cardizem to control atrial fibrillation. Patient will also need specialty consultation Quality Stroke Does the patient have a stroke diagnosis?: No VTE Prior VTE?: No VTE Risk Level:: Medical - moderate - high VTE Device Contraindication: Treatment Not Indicated VTE Drug Contraindication: N/A - Med Ordered
--- NOTE | 2024-08-12 10:26 | MHC.CM.PN ---
Addendum entered by Alicia Martinez 08/12/24 10:30: PT IS RECOMMENDING STR PT HAS ASKED THAT HIS DAUGHTER BE CONTACTED TO DISCUSS POSSIBLE SNFS VM MESSAGE LEFT FOR OPHELIA REQUESTING A RETURN CALL Original Note: CM RECEIVED A CALL FROM PTS DAUGHTER, OPHELIA, YESTERDAY AFTERNOON SHE REPORTS BEING OVERWHELMED, PT LIVES AT HOME WITH HIS WHO HAS LEWY BODY DEMENTIA AND IS DECLINING SHE REPORTS HER MOTHER IS NOW INCONTINENT AND WILL NOT ALWAYS ACCEPT ASSISTANCE WITH CLEANING UP WHEN NEEDED OPHELIA REPORTS HER MOTHER WILL ARGUE ABOUT OTHER THINGS SHE WANTS TO DO BEFORE CLEANING UP INSTEAD. OPHELIA REPORTS SHE HAS HAD [facility] IN THE HOME FOR CLEANING SERVICES, BUT THE PT AND HIS ASKED THEM TO STOP COMING OPHELIA SAYS IT IS ONLY HER HELPING SINCE THEN AND SHE LIVES 35-40 MINUTES AWAY. PER DISCUSSION, A REFERRAL WAS MADE TO [facility] TO SEE IF THEY ARE ELIGIBLE TO RESUME SERVICES IN THE HOME A REFERRAL WAS ALSO MADE [place] [facility] [place] [facility] TO DETERMINE IF PT OR HIS COULD GET MH FOR MORE SERVICES AND POTENTIALLY LTC PLACEMENT IN THE FUTURE. OPHELIA WAS ALSO INFORMED SHE CAN CONTACT HER MOTHERS PCP AND ATTEMPT TO GET A VNA IN THE HOME FOR HER MOTHER. SHE WAS GIVEN A LIST OF VNAS THAT WILL DO MED ADMINISTRATION SHE REPORTS HER MOTHER IS NOT ALWAYS TAKING HER MEDS AND SHE CANNOT ALWAYS BE THERE TO ASSIST.
[2024-08-12 14:00] VITALS: BP 90/52; PULSE 67; RESP 14; TEMP 37.2; O2SAT 95
[2024-08-12] MEDS: Warfarin Sodium 2 MG TABLET PO (17:29)
[2024-08-12 19:33] VITALS: BP 111/65; PULSE 97; RESP 18; TEMP 36.6; O2SAT 96
[2024-08-12] MEDS: Atorvastatin Calcium 20 MG TABLET PO (20:27)
[2024-08-13 01:04] VITALS: BP 118/76; PULSE 94; RESP 16; TEMP 36.6; O2SAT 94
[2024-08-13 06:00] VITALS: BP 114/64; PULSE 80; RESP 18; TEMP 36.2; O2SAT 94
[2024-08-13 07:22] LABS: INTERNATIONAL NORM RATIO 1.9 (0.9-1.1); Prothrombin Time 22.5 SEC (10.9-12.4)
--- NOTE | 2024-08-13 07:37 | PM.DS ---
DS: Providers Provider Date of Service: 08/13/24 Date of admission: 08/10/24 15:07 Primary care physician: DONIS ChinoPKatie DS: Diagnosis Discharge Diagnosis (1) Cellulitis: Status: Resolved (2) Atrial fibrillation with rapid ventricular response: Status: Resolved DS: Summary Hospital Course Hospital Course: History and physical as per admitting provider. This is an 88 year old male with history of atrial fibrillation, recent admission for uncontrolled AFib and cellulitis who presents to the emergency department with dizziness. He reports feeling lightheaded with change in position which has been going on for some time, several months but happened more frequently today. He added episode of lightheadedness while he was walking into the living room, an episode after bending over and standing up quickly. He denies any shortness of breath in general, chest pain, palpitations, nausea, vomiting. He has no orthopnea or PND. He did report an episode of shortness of breath after bending over and then standing up quickly which improved after rest. He does report lower extremity edema however he reports it is improved compared to his previous admission and that his swelling goes up and down. During his recent admission his dose of Cardizem was increased to 240 mg daily. In the emergency department chest x-ray showed mild CHF although his BNP was normal. He received a dose of Lasix in the decision was made to admit him to the hospital for further management. 88-year-old man treated for left lower extremity edema/cellulitis, improved on Augmentin. Recommended Graham stockings for edema. He was also noted to have atrial fibrillation with rapid ventricular response that initially was refractory to IV Lopressor. His Cardizem was adjusted back up to his home dose of 240 mg. He was initially having some occasional dizziness but orthostatic blood pressures were negative. His triamterene/hydrochlorothiazide has been stopped which could have been causing some of his dizzy spells along with the elevated heart rate with AFib. At this time patient is stable. He was seen and evaluated by physical therapy recommended short-term rehab however after discussing with his family they had decided that he would be safe home with physical therapy. Patient has completed antibiotic therapy and should continue all of his other home medications. Hypertension. Acceptable control on current therapy with Cardizem BPH. Continue Proscar Atrial fibrillation. Continue warfarin Time Attestation Discharge Coordination Time (in mins): 40 Quality: Safe Use of Opioids Does Pt have an Active Cancer Diagnosis on the Problem List?: No Quality: Stroke Does the patient have a stroke diagnosis?: No Physical Exam Vital Signs: Vital Signs: Last Vital Signs Temp 97.1 F 08/13/24 06:00 Pulse 80 08/13/24 06:00 Resp 18 08/13/24 06:00 BP 114/64 08/13/24 06:00 Pulse Ox 94 08/13/24 06:00 O2 Del Method Room Air 08/13/24 06:00 BMI result Body Mass Index 25.4 Appearing in no acute distress head is normocephalic atraumatic eyes pupils are PERRLA sclera is anicteric mouth throat mucous membranes are intact and moist neck is supple no lymphadenopathy, no JVD noted lung sounds are clear to auscultation heart regular rate rhythm, clear S1, S2 positive bowel sounds, abdomen is soft, nontender neuro patient is alert x3, no focal deficits DS: Data Data Completed and Pending Labs on day of discharge: Laboratory Results - last 24 hr 08/13/24 06:51 PT 22.5 H INR 1.9 H Discharge Plan Discharge Anticipated Discharge Date/Time: 08/13/24 07:33 Patient Disposition: Home Health Service Discharge Diagnosis: Lower extremity edema/cellulitis Persistent atrial fibrillation, rapid ventricular response Referrals: [facility] [Outside] - 1 Week Romain Vizcarra FNP- [Primary Care Provider] - 1 Week Discharge Medications: Continued warfarin 2 mg Tablet 2 mg PO DAILY@1800 atorvastatin 20 mg tablet 20 mg PO BEDTIME diltiazem HCl [Cardizem CD] 240 mg capsule,extended release 24hr 240 mg PO DAILY Qty: 30 0RF magnesium 200 mg tablet 200 mg PO DAILY finasteride [Proscar] 5 mg tablet 5 mg PO DAILY 90 Days Qty: 90 3RF Discontinued triamterene-hydrochlorothiazid 75-50 mg tablet 1 tab PO DAILY Qty: 90 1RF amoxicillin-pot clavulanate [Augmentin] 500-125 mg tablet 1 tab PO BID Qty: 14 0RF Rx Instructions: End date 08/13/23 Discharge Orders: Discharge Order (Routine); Ordered 08/13/24 Ordered By: Ema Jimenez Diet: Advance to usual diet Activity on Discharge: As tolerated Stand Alone Forms: Patient Portal Discharge page Print Language: Marshallese Care Plan Goals: Your triamterene-hydrochlorothiazide was stopped, continue on all of your other home medications Health Concerns: Lower extremity edema/cellulitis Persistent atrial fibrillation, rapid ventricular response Plan of Treatment: Follow-up with primary care provider as needed Take all medications as prescribed Assessment: See discharge summary
[2024-08-13 07:54] VITALS: BP 105/61; PULSE 75; RESP 19; TEMP 36.3; O2SAT 94
[2024-08-13] MEDS: Amoxicillin/Potassium Clav 500 MG TABLET PO (09:01)
[2024-08-13] MEDS: 0.9 % Sodium Chloride Flush 3 ML SYRINGE IVFLUSH (09:01)
[2024-08-13] MEDS: Magnesium Oxide 400 MG TABLET 200 MG PO (09:01)
[2024-08-13] MEDS: Finasteride 5 MG TABLET PO (09:02)
[2024-08-13] MEDS: dilTIAZem HCL CD 240 MG CAP.ER.DEG PO (09:02)
--- NOTE | 2024-08-13 12:58 | MHC.CM.PN ---
Pt is medically cleared for discharge home with resumption of previous [facility] services, pts daughter to transport him home.
== END 2024-08-13 13:22 | disposition home health service (06) ==
LOC: HO.ED 13:54 → HO.EDOVER 15:08 → HO.IMC 19:43
PROVIDERS: Physician Assistant Medical; Admitting Provider Physician Assistant Medical; Emergency Provider Emergency Medicine; PCP Nurse Practitioner Family; Visit Provider Nurse Practitioner Acute Care
DX: I48.20 Chronic atrial fibrillation, unspecified (principal); L03.90 Cellulitis, unspecified; I11.0 Hypertensive heart disease with heart failure; I50.9 Heart failure, unspecified; I49.5 Sick sinus syndrome; R42 Dizziness and giddiness; R06.02 Shortness of breath; E78.5 Hyperlipidemia, unspecified; Z79.01 Long term (current) use of 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s; Z79.899 Other long term (current) drug therapy; Z95.0 Presence of cardiac pacemaker; Z03.818 Encounter for observation for suspected exposure to other biological agents ruled out
CPT/HCPCS: 0241U; 36415; 71046; 80048; 80053; 81001; 82803; 83735; 83880; 84484; 85025; 85610; 85730; 87633; 93005; 96365; 96375; 97162; 99222; 99285; J1940; J3475

== ENCOUNTER → 2024-08-10 11:47 | Outpatient (BNV) | payer MEDICARE, OTHER, SELFPAY | PROVIDERS: Admitting Provider Physician Assistant Medical; Emergency Provider Emergency Medicine; PCP Nurse Practitioner Family; Visit Provider Internal Medicine Cardiovascular Disease | DX: R94.31 Abnormal electrocardiogram [ECG] [EKG] (principal) | CPT/HCPCS: 93010 ==

== ENCOUNTER → 2024-08-10 11:47 | Outpatient (BNV) | payer MEDICARE, OTHER, SELFPAY | PROVIDERS: Emergency Provider Emergency Medicine; PCP Nurse Practitioner Family; Visit Provider Radiology Diagnostic Radiology | DX: I51.7 Cardiomegaly (principal); I50.9 Heart failure, unspecified | CPT/HCPCS: 71046 ==

== ENCOUNTER → 2024-08-10 15:07 | Outpatient (BNV) | payer MEDICARE, OTHER, SELFPAY | PROVIDERS: Admitting Provider Physician Assistant Medical; Emergency Provider Emergency Medicine; PCP Nurse Practitioner Family; Visit Provider Nurse Practitioner Acute Care | DX: R42 Dizziness and giddiness (principal) | CPT/HCPCS: 99223 ==

== ENCOUNTER → 2024-08-17 14:06 | Outpatient (BNVA) | payer MEDICARE, OTHER, SELFPAY | PROVIDERS: PCP Nurse Practitioner Family; Visit Provider Internal Medicine ==

== ENCOUNTER 2024-08-20 11:03 | Emergency (ER) | payer MEDICARE, OTHER, SELFPAY ==
[2024-08-20 11:56] VITALS: BP 122/67; PULSE 80; RESP 18; TEMP 36.5; O2SAT 97; BMI 28.1
--- NOTE | 2024-08-20 11:59 | ED.EXTPRO ---
HPI - Extremity Problem General Chief complaint: General Medical Stated complaint: CHF Time Seen by Provider: 08/20/24 14:20 Source: patient, family and old records reviewed Mode of arrival: ambulatory Limitations: no limitations History of Present Illness ED Provider: TIAGO CURTIS Narrative: 88 yo male with PMH of CHF, HTN, HLD, afib on coumadin just admitted here for CHF - reports increased leg edema since discharge, no CP/SOB, but c/o dizziness when standing and bending over, no falls or headstrike, no GIB symptoms reported. He notes since leaving here and not being on a diuretic held for dizzines but not orthostatic during visit he reports he has leg swelling and it bothers him. No CP/SOB. He still has the dizziness with position changes but no headache or any other neuro changes. patient feels he needs to be back on a water pill due to the swelling and is worried about CHF. MD Complaint: extremity swelling Onset (ago): day(s) (few) Pain Consistency: constant Location: left, right and lower extremity Radiation: none Relieving factors: movement Exacerbating factors: nothing Associated symptoms: other (urinary hesitancy) Context: other Related Data Home Medications ?Medication ?Instructions ?Recorded ?Confirmed magnesium 200 mg tablet 200 mg PO DAILY 10/17/23 08/17/24 atorvastatin 20 mg tablet 20 mg PO BEDTIME 08/02/24 08/17/24 warfarin 2 mg tablet 2 mg PO DAILY@1800 08/02/24 08/17/24 amoxicillin 500 mg-potassium 1 tab PO BID 08/17/24 08/17/24 clavulanate 125 mg tablet Previous Rx's ?Medication ?Instructions ?Recorded diltiazem HCl 240 mg 240 mg PO DAILY #30 caps 08/06/24 capsule,extended release 24 hr (Cardizem CD) finasteride 5 mg tablet (Proscar) 5 mg PO DAILY 90 days #90 tabs 08/16/24 furosemide 20 mg tablet (Lasix) 20 mg PO Q OTHER DAY #14 tabs 08/20/24 Allergies Allergy/AdvReac Type Severity Reaction Status Date / Time No Known Allergies Allergy Verified 08/20/24 11:59 [No Known Allergies*] Review of Systems Review of Systems: Constitutional : No Fever, No Chills, No Fatigue ENT/Mouth : No sore throat, No Rhinorrhea Eyes: No Eye Pain, No Swelling, No Redness Cardiovascular : No Chest Pain, No SOB, No Dyspnea on Exertion, pos leg edema Respiratory : No Cough, No Sputum Gastrointestinal : No Nausea, No Vomiting, No Diarrhea, No abdominal Pain Genitourinary : No Dysuria, No Urinary Frequency, No Hematuria, pos hesitancy Musculoskeletal : No joint pain, No Myalgias, No Joint Swelling Skin : No Skin Lesions, No rash Neuro : No Weakness, No Numbness, pos Dizziness, no Headache Psych : No Anxiety/Panic, No Depression Heme/Lymph: No Bruising, No Bleeding,No Lymphadenopathy Endocrine : No Polyuria, No Polydipsia All other systems reviewed and are negative [facility] Past Medical History Medical History Tachy-garrison syndrome Hypertension, essential, benign Hyperlipidemia Atrial fibrillation Osteoarthritis Pacemaker (~2008) Current use of anticoagulant therapy Surgical History History of colonoscopy History of eye surgery History of appendectomy Status post left foot surgery (~02/2020) Amputated toe of left foot History of cardiac pacemaker History of cardiac radiofrequency ablation (RFA) Family History Family History Father No problems noted. Mother No problems noted. Social History Social History Household Members: Spouse Housing: House Do you presently have visiting nurse or other home services: No Alcohol intake: current Alcohol intake frequency: a few times a week Alcohol type: beer Patient Tobacco Use Status: Former Tobacco user Years Smoked: 15 e-Cigarette/Vaping Use: Never Used Advance Directives: Yes Advance Directives on File: Yes Advance Directives Date on File: 09/27/22 Do you have a plan to hurt others: No Plan service: No Current occupational status: retired Hearing needs: No Vision needs: Yes (Glasses) Physical Exam Vital Signs: Vital Signs: Last Vital Signs Temp 97.7 F 08/20/24 11:56 Pulse 80 08/20/24 11:56 Resp 18 08/20/24 11:56 BP 122/67 08/20/24 11:56 Pulse Ox 97 08/20/24 11:56 O2 Del Method Room Air 08/20/24 11:56 BMI result Body Mass Index 28.1 Appearance: Alert. Oriented X3. No acute distress. Eyes: Pupils equal, round and reactive to light. ENT: Pharynx normal. Neck: Normal inspection. Neck supple. CVS: irregular heart rate and rhythm. Pulses normal. Respiratory: No respiratory distress. Breath sounds normal. Abdomen: Soft and nontender. Skin: Skin warm and dry. Normal skin color. Normal skin turgor. Extremities: ankle pitting edema 1+ symmetric No calf ttp Neuro: Oriented X 3. No motor deficit. No sensory deficit. CN2-12 intact Medical Decision Making Medical Decision Making [facility] Narrative: 88 yo male with PMH of CHF, HTN, HLD, afib on coumadin just admitted here for CHF - reports increased leg edema since discharge, no CP/SOB, but c/o dizziness when standing and bending over this is not new, no falls or headstrike, no GIB symptoms reported. He is worried his ankles are swollen and he feels he needs a diuretic. After DC on 08/23 he was not started on diuretic but his HCTZ/triamterene was held as they thought it could be causing his dizziness. Ankle swelling is symmetric and very distal doubt DVT. At this time will obtain basic labs, EKG, BNP, INR just DC on 08/23 held triamterena and HCTZ no longer on a diuretic may just need new lasix and compression stockings negative ortho statics on last admi Differential Diagnosis Differential Diagnoses: The differential diagnosis associated with the presentation includes CHF, dependent edema, HERSON Admission/Observation Consideration of admission/observation: Escalation of care including admission/observation considered mild drop in H/H but denies any GIB symptoms can be started on lasix 20mg every other day and follow up with labs in 2 days with PCP patient and daughter agree with plan Lab Data [facility] Lab Attestation statement: I reviewed the patient's lab results. 08/20/24 12:32 08/20/24 12:32 Labs: Lab Results 08/20/24 08/20/24 Range/Units 12:32 14:44 WBC 6.4 (4.8-10.8) X10*3/uL RBC 3.83 L (4.60-5.80) X10*6/uL Hgb 11.9 L (14.0-18.0) g/dl Hct 36.6 L (42.0-52.0) % MCV 95.6 (80.0-98.0) fL MCH 31.1 (27.0-33.0) pg MCHC 32.5 (31.0-36.0) g/dl RDW 14.3 (11.0-16.0) % Plt Count 237 (160-400) X10*3/uL MPV 9.2 L (9.4-12.4) fL Immature Gran % (Auto) 0.6 H (0.0-0.4) % Neut % (Auto) 64.3 (45-73) % Lymph % (Auto) 24.1 (20-40) % [place] % (Auto) 8.5 (2-11) % Eos % (Auto) 1.9 (0-4) % Baso % (Auto) 0.6 (0-2) % Lymph # (Auto) 1.5 (1.2-4.9) X10*3/uL [place] # (Auto) 0.5 (0.1-1.2) X10*3/uL Eos # (Auto) 0.1 (0.0-0.4) X10*3/uL Baso # (Auto) 0.0 (0.0-0.2) X10*3/uL Abs Immat Gran (auto) 0.04 H (0.00-0.03) X10*3/uL Absolute Neuts (auto) 4.1 (2.0-8.3) x10*3/uL Absolute Nucleated RBC 0.000 (0.0-0.012) X10*3/uL Nucleated RBC % (auto) 0.0 (0.0-0.2) /100WBC PT 21.5 H (10.9-12.4) SEC INR 1.8 H (0.9-1.1) Sodium 139 (135-145) mmol/L Potassium 3.8 (3.3-5.1) mmol/L Chloride 105 (96-108) mmol/L Carbon Dioxide 30 H (22-29) mmol/L Anion Gap 8 L (12-20) BUN 13 (9-16) mg/dL Creatinine 0.84 (0.5-1.4) mg/dL Estim Creat Clear Calc 78.6 Estimated GFR > 60 Random Glucose 86 (60-115) mg/dL Calcium 8.8 (8.4-10.2) mg/dL Magnesium 2.0 (1.6-2.6) mg/dL Total Bilirubin 0.7 (0.0-1.0) mg/dL Direct Bilirubin 0.3 (0.0-0.5) mg/dL AST 28 (5-37) U/L ALT 15 (0-40) U/L Alkaline Phosphatase 35 L (39-117) U/L Troponin I High Sens 3.5 (<3.5-35.0) ng/L B-Natriuretic Peptide 144 H (<100) pg/mL Total Protein 6.6 (6.5-8.0) g/dL Albumin 3.6 (3.5-5.0) g/dL Lipase 14 (8-78) U/L Urine Color Dark Yellow Urine Appearance Clear Urine pH 5.5 (5.0-9.0) Ur Specific [place] 1.025 (1.005-1.025) Urine Protein 30 (1+) H (Neg-Trace) mg/dL Urine Glucose (UA) Negative (Negative) mg/dL Urine Ketones Trace (Negative) mg/dL Urine Blood Trace H (Negative) Urine Nitrite Negative (Negative) Ur Leukocyte Esterase Negative (Negative) Urine RBC 3-5 H (0-2) /HPF Urine WBC 0-5 (0-5) /HPF Ur Squamous Epith Cells 0-2 (0-2) /HPF Urine Bacteria None Seen (None Seen) Hyaline Casts 0-2 (0-2) /LPF Independent Interpretation I performed an independent interpretation of an: EKG Interpretation: Rate: 77 Rhythm: afib with PVCs Ione: normal Normal QRS complex. ST T wave : inverted t wave III, no ADONIS qTC: 482 prior studies: no change from prior The study has been interpreted contemporaneously by me. . Independent Historian Clinical information obtained from an independent historian. History obtained from or confirmed by: Other (daughter) External Record Review External record reviewed: Inpatient record and Outpatient record Prescription Management I considered prescription management with: Other Discharge Plan Discharge Clinical Impression: Leg edema, Anemia Patient Disposition: Home, Self-Care Instructions: Anemia (ED), Edema (ED) Additional Instructions: INR 1.8 return for any fatigue, increased TAYLOR, black or bloody stools keep legs elevated with stockings return for any worsening symptoms or concerns please monitor your blood pressure daily lasix is to be every other day repeat labs with your primary care doctor in 2 days - CBC and BMP follow up in ED for any concerns no urinary tract infection Prescriptions: New furosemide [Lasix] 20 mg tablet 20 mg PO Q OTHER DAY Qty: 14 0RF No Action finasteride [Proscar] 5 mg tablet 5 mg PO DAILY 90 Days Qty: 90 3RF warfarin 2 mg Tablet 2 mg PO DAILY@1800 Protocol: Dose Management Condition: Tuesday (Week One) Dose/Route: 2 mg Instruction: 1 x 2 mg tablet Condition: Tuesday Dose/Route: 2 mg Instruction: 1 x 2 mg tablet Condition: Tuesday Dose/Route: 2 mg Instruction: 1 x 2 mg tablet Condition: Tuesday Dose/Route: 2 mg Instruction: 1 x 2 mg tablet Condition: Dose/Route: 2 mg Instruction: 1 x 2 mg tablet Condition: Tuesday Dose/Route: 4 mg Instruction: 2 x 2 mg tablets Condition: Tuesday Dose/Route: 2 mg Instruction: 1 x 2 mg tablet Condition: Tuesday (Week Two) Dose/Route: 2 mg Instruction: 1 x 2 mg tablet Condition: Tuesday Dose/Route: 4 mg Instruction: 2 x 2 mg tablets Condition: Tuesday Dose/Route: 2 mg Instruction: 1 x 2 mg tablet Condition: Tuesday Dose/Route: 4 mg Instruction: 2 x 2 mg tablets Condition: Dose/Route: 2 mg Instruction: 1 x 2 mg tablet Condition: Tuesday Dose/Route: 4 mg Instruction: 2 x 2 mg tablets Condition: Tuesday Dose/Route: 2 mg Instruction: 1 x 2 mg tablet Protocol Text: Adjustment Start Date: Tuesday08/17/24 INR Value: 1.7 INR Date: 08/17/24 Recheck Date: 08/24/24 Additional Instructions: REVIEW FOOD LIST WEEKLY, LIMIT [place] FOR A FEW DAYS TO LET INR COME UP atorvastatin 20 mg tablet 20 mg PO BEDTIME diltiazem HCl [Cardizem CD] 240 mg capsule,extended release 24hr 240 mg PO DAILY Qty: 30 0RF magnesium 200 mg tablet 200 mg PO DAILY amoxicillin-pot clavulanate 500-125 mg tablet 1 tab PO BID Print Language: Jamaican
--- NOTE | 2024-08-20 12:03 | ECG_ITS ---
Test Reason : DIZZINESS Blood Pressure : */* mmHG Vent. Rate : 77 BPM Atrial Rate : * BPM P-R Int : * ms QRS Dur : 86 ms QT Int : 426 ms P-R-T Axes : * 28 0 degrees QTcB Int : 482 ms Atrial fibrillation with occasional ventricular-paced complexes Nonspecific ST abnormality Prolonged QT Abnormal ECG When compared with ECG of 10-Aug-2024 11:59, Vent. rate has increased by 8 bpm Referred By: María Solis Electronically Signed By: Delfino Fry
[2024-08-20 12:49] LABS: MANUAL DIFF FLAG NO
[2024-08-20 12:52] LABS: Basophils Percent Auto 0.6 % (0-2); Eosinophils Absolute Auto 0.1 X10*3/uL (0.0-0.4); Eosinophils Percent Auto 1.9 % (0-4); Hematocrit 36.6 % (42.0-52.0); Hemoglobin 11.9 g/dl (14.0-18.0); Imm Gran Abs Auto 0.04 X10*3/uL (0.00-0.03); Imm Gran Pct Auto 0.6 % (0.0-0.4); Lymphocytes Absolute Auto 1.5 X10*3/uL (1.2-4.9); Lymphocytes Percent Auto 24.1 % (20-40); Mean Corpuscular HGB Conc 32.5 g/dl (31.0-36.0); Mean Corpuscular Hemoglobin 31.1 pg (27.0-33.0); Mean Corpuscular Volume 95.6 fL (80.0-98.0); Mean Platelet Volume 9.2 fL (9.4-12.4); Monocytes Absolute Auto 0.5 X10*3/uL (0.1-1.2); Monocytes Percent Auto 8.5 % (2-11); Neutrophils Absolute Auto 4.1 x10*3/uL (2.0-8.3); Neutrophils Percent Auto 64.3 % (45-73); Platelet Count 237 X10*3/uL (160-400); Red Blood Count 3.83 X10*6/uL (4.60-5.80); Red Cell Distribution Width 14.3 % (11.0-16.0); White Blood Count 6.4 X10*3/uL (4.8-10.8)
[2024-08-20 12:57] LABS: INTERNATIONAL NORM RATIO 1.8 (0.9-1.1); Prothrombin Time 21.5 SEC (10.9-12.4)
[2024-08-20 13:06] LABS: Alanine Aminotransferase 15 U/L (0-40); Albumin Level 3.6 g/dL (3.5-5.0); Alkaline Phosphatase 35 U/L (39-117); Anion Gap 8 (12-20); Aspartate Amino Transferase 28 U/L (5-37); Bilirubin Direct 0.3 mg/dL (0.0-0.5); Bilirubin Total 0.7 mg/dL (0.0-1.0); Blood Urea Nitrogen 13 mg/dL (9-16); Calcium 8.8 mg/dL (8.4-10.2); Carbon Dioxide 30 mmol/L (22-29); Chloride 105 mmol/L (96-108); Creatinine Clr Calc Pharmacy 78.6; Estimated Glomerular Filt Rate > 60; Glucose Random 86 mg/dL (60-115); Lipase 14 U/L (8-78); Potassium 3.8 mmol/L (3.3-5.1); Sodium 139 mmol/L (135-145); Total Protein 6.6 g/dL (6.5-8.0)
[2024-08-20 13:10] LABS: B Type Natriuretic Peptide 144 pg/mL (<100)
[2024-08-20 13:13] LABS: Troponin-I High Sensitivity 3.5 ng/L (<3.5-35.0)
[2024-08-20 14:57] LABS: Appearance Urine Clear; Color Urine Dark Yellow; Glucose Urine UA Negative (Negative); Leukocyte Esterase Urine Negative (Negative); Nitrite Urine Negative (Negative); PH 5.5 (5.0-9.0); Specific Gravity - Urine 1.025 (1.005-1.025); UMIC TRIGGER UACC YES; Urine Blood Trace (Negative); Urine Ketones Trace mg/dL (Negative); Urine Protein 30 (1+) mg/dL (Neg-Trace)
[2024-08-20 15:06] LABS: Bacteria Urine None Seen (None Seen); Hyaline Casts Urine 0-2 /LPF (0-2); Squamous Epithelial Cell Urine 0-2 /HPF (0-2); WBC Urine 0-5 /HPF (0-5)
== END 2024-08-20 15:48 | disposition home or self-care (01) ==
PROVIDERS: Emergency Provider Emergency Medicine; PCP Nurse Practitioner Family
DX: R60.0 Localized edema (principal); D64.9 Anemia, unspecified; R42 Dizziness and giddiness; I10 Essential (primary) hypertension; E78.5 Hyperlipidemia, unspecified; I48.91 Unspecified atrial fibrillation; Z95.0 Presence of cardiac pacemaker; Z79.01 Long term (current) use of 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s; Z79.02 Long term (current) use of antithrombotics/antiplatelets; Z79.899 Other long term (current) drug therapy
CPT/HCPCS: 36415; 80048; 80076; 81001; 81003; 83690; 83735; 83880; 84484; 85025; 85610; 93005; 99283

== ENCOUNTER → 2024-08-20 12:03 | Outpatient (BNV) | payer MEDICARE, OTHER, SELFPAY | PROVIDERS: Emergency Provider Emergency Medicine; PCP Nurse Practitioner Family; Visit Provider Internal Medicine Cardiovascular Disease | DX: R94.31 Abnormal electrocardiogram [ECG] [EKG] (principal) | CPT/HCPCS: 93010 ==

== ENCOUNTER 2024-08-22 13:56 | Outpatient (AMB) | payer MEDICARE, OTHER, SELFPAY ==
[2024-08-22 13:57] VITALS: BP 128/66; PULSE 89; O2SAT 99; BMI 28.6
--- NOTE | 2024-08-22 13:57 | MHC.PC.OV ---
Vital Signs 08/22/24 13:57 Height 6 ft 3 in Weight 229 lb BMI 28.6 BP 128/66 Blood Pressure Location Rt brachial Position Sitting Pulse 89 Pulse Source Pulse Oximeter Pulse Oximetry (%) 99 Oxygen Delivery Method Room Air Intake Visit Reasons: TCM Intake Note: Pt is here today for TCM visit. Pt's daughter states that pt's R ankle is swollen. Also, pt's L leg is warm to the touch. Allergies No Known Allergies [No Known Allergies*] Allergy (Verified 08/22/24 14:03) Tobacco use date assessed: 08/22/24 Fall risk assessment: 1 Fall in past year Last assessed Fall Risk: 09/12/24 Dental Screening Dental Screen Date: 08/22/24 Did you have a dental visit in the last 12 months?: No Did you have a dental problem in the last 6 months where you did not have access to dental care?: No Was dental information given to patient?: Patient declined HPI TCM HPI Details Chief Complaint The patient reports ongoing bilateral lower extremity swelling. History of Present Illness The patient is an 88-year-old male presenting with a follow-up for recent exacerbation of Congestive Heart Failure. The patient had multiple hospital admissions, with the most recent being for worsening CHF symptoms. During his prior hospitalization, he was started on somoseride, which subsequently caused diarrhea, leading to the holding of his HCTZ /triamentrene due to dizziness. At that time, ankle swelling was noted. Differential diagnosis ruled out a Deep Vein Thrombosis (DVT) and a slightly elevated BNP was observed (144), please see echo. He was discharged on a regimen of Lasix 20 mg every other day and advised to use compression stockings. Currently, the patient reports persistent and significant bilateral extremity swelling, more pronounced on the right, preventing the use of compression stockings. There is a history of improved kidney function, supporting the adjustment in diuretic therapy. The patient denies any new shortness of breath, fever, chills, nausea, and vomiting. He remains ambulatory with the aid of a cane and adheres to follow-up plans with cardiology. Social History - Family Status: Present with daughter at visit. - Functional Status: Ambulatory with cane, advises elevating lower extremities when seated or lying down. Health Maintenance Review of Systems - Respiratory: Denies shortness of breath - General: Denies fevers, chills, nausea, vomitin, CP, PND. Physical Exam General: Cooperative, healthy appearing, comfortable, no acute distress and well developed Orientation: Patient oriented x3 Limitations: No limitations Head: Normal to inspection Ears: Hearing grossly normal bilaterally Nose: Normal external nose present Face and sinus: Normal facial exam Eyes: Appearance normal, both eyes and all related structures Neck: Normal visual inspection and Yes full ROM Respiratory: Very faint crackles to bilateral bases, otherwise fairly clear. Able to speak in complete sentences (with mask on). Cardiovascular: Regular rate and rhythm. Normal S1 and S2 GI: Normal to inspection. Soft to palpation and nontender Skin: No rashes or lesions noted. Healed protrusion, a healing protrusion that scabbed just inferior to his left patella, no signs of infection noted. Neuro: Patient oriented x3 Extremities: +1 pitting to bilateral lower extremities, right greater than left. Results Plan - Administer Lasix daily for four days to address bilateral lower extremity edema, then back to every other day - Recommend bilateral CHAD wraps for a few days to reduce swelling and facilitate use of compression stockings thereafter. - Reassess electrolytes and magnesium levels in 2-3 days due to diuretic therapy. - Obtain chest X-ray in 2-3 days along with lab tests to monitor for any pulmonary congestion. - Encourage elevation of lower extremities during rest. - Ensure follow-up with cardiology as scheduled on the . -encouraged sipping fluids (electrolyte drinks, sugar free) Patient was informed and verbally consented to the use of an ambient scribe for clinic note documentation during this visit. Discussion Notes During this visit, I discussed with the patient and his daughter the exacerbation of his Congestive Heart Failure and the management plan for his bilateral lower extremity edema. I outlined the adjustment in diuretic therapy to daily Lasix administration for the next four days to address significant edema and advised on the use of CHAD wraps to help manage swelling until compression stockings can be worn comfortably. I explained the importance of monitoring kidney function through repeated electrolyte tests given the increased diuretic use and arranged for laboratory tests, including a chest X-ray, to be conducted in 2-3 days. The patient and his daughter were informed of the plan and consented to follow-up care instructions, including adherence to cardiology appointments and monitoring for any exacerbation in symptoms, such as shortness of breath or increased lower extremity swelling. Patient Instructions - Take Lasix daily for four days as instructed. - Wrap bilateral extremities with CHAD wraps for swelling management. - Keep lower extremities elevated when sitting or lying down. - Return for lab tests and X-ray in 2-3 days. - Follow-up with cardiology on the scheduled date. - Seek emergency care if experiencing worsening shortness of breath or increased leg swelling. TCM TCM Information Date of Discharge 08/06/24 Discharged From [facility] Interactive Contact Date (Reference documentation from this date) 08/09/24 FORMERLY [facility], [facility]–1983 Medical History Tachy-garrison syndrome Hypertension, essential, benign Hyperlipidemia Atrial fibrillation Osteoarthritis Pacemaker (~2008) Current use of anticoagulant therapy Surgical History History of colonoscopy History of eye surgery History of appendectomy Status post left foot surgery (~02/2020) Amputated toe of left foot History of cardiac pacemaker History of cardiac radiofrequency ablation (RFA) Family History Father No problems noted. Mother No problems noted. Social History Household Members: Spouse Housing: House Do you presently have visiting nurse or other home services: No Alcohol intake: current Alcohol intake frequency: a few times a week Alcohol type: beer Patient Tobacco Use Status: Former Tobacco user Years Smoked: 15 e-Cigarette/Vaping Use: Never Used Advance Directives Date on File: 09/27/22 service: No Current occupational status: retired Hearing needs: No Vision needs: Yes (Glasses) Questionnaire PHQ-9 Over the last 2 weeks, how often have you been bothered by any of the following problems? 1. Little interest or pleasure in doing things: not at all 2. Feeling down, depressed, or hopeless: more than half the days 3. Trouble falling or staying asleep, or sleeping too much: more than half the days 4. Feeling tired or having little energy: nearly every day 5. Poor appetite or overeating: not at all 6. Feeling bad about yourself - or that you are a failure or have let yourself or your family down: not at all 7. Trouble concentrating on things, such as reading the newspaper or watching television: not at all 8. Moving or speaking so slowly that other people could have noticed. Or the opposite - being so fidgety or restless that you have been moving around a lot more than usual: not at all 9. Thoughts that you would be better off or of hurting yourself in some way: not at all Total score: 7 Depression Screening Interpretation: Negative Depression Screening Done: Yes 20445 - PHQ-9 Billing: Yes Source: Developed by Drs. Alan Kim, Mandi Novak, Brendon Barajas and colleagues, with an educational antoni from [employer]. Thrive Questionnaire Date Thrive assessed: 08/22/24 I am a: Patient What is your living situation today?: I have a steady place to live Within the past 12 months, did the food you bought not last and you didn't have the money to get more?: Never true Within the past 12 months, did you worry whether your food would run out before you got money to buy more?: Never true Do you have trouble paying for medicines?: No Do you have trouble getting transportation to medical appointments?: No Do you have trouble paying your heating and electricity bill?: No Do you have trouble taking care of your child, family member or friend?: Yes Do you have trouble with day-to-day activities such as bathing, preparing meals, shopping, managing finances, etc.?: Yes Are you currently unemployed and looking for a job?: No Are you interested in more education?: No Please select the resources that you would like help with: None Currently or been in a relationship where the following occur: No concerns reported THRIVE Score: 0 AUDIT C Alcohol Use Questionnaire (AUDIT-C) 1. How often do you have a drink containing alcohol?: 2-4 times a month 2. How many drinks containing alcohol do you have on a typical day when you are drinking?: 1 or 2 3. How often do you have six or more drinks on one occasion?: Never Total Score: 2 CHEN-7 AMB Questionnaire CHEN-7 Date CHEN - 7 assessed: 08/22/24 Feeling nervous, anxious, or on edge: 1 = Several days Not being able to stop or control worryin = Several days Worrying too much about different things: 1 = Several days Trouble relaxin = Not at all Being so restless that it is hard to sit still: 0 = Not at all Becoming easily annoyed or irritable: 1 = Several days Feeling afraid as if something awful might happen: 0 = Not at all Total CHEN-7 score (0-4 normal; 5-9 mild; 10-14 moderate; 15-21 severe): 4 Source: Developed by Drs. Alan Kim, Mandi Novak, Brendon Barajas and colleagues, with an educational antoni from [employer]. CHEN-7 Assessment Billing CHEN-7 Assessment Tool: CHEN-7 Assessment 25448 Physical exam (Primary Care) Vital Signs: Last Vital Signs Pulse 89 08/22/24 13:57 BP 128/66 08/22/24 13:57 Pulse Ox 99 08/22/24 13:57 Oxygen Delivery Method Room Air 08/22/24 13:57 BMI result Body Mass Index 28.6 Tobacco/Smoking Status: Tobacco use Status Tobacco use date assessed 08/22/24 08/22/24 14:06 Patient Tobacco Use Status Former Tobacco user 08/22/24 13:57 e-Cigarette/Vaping Use Never Used 08/22/24 13:57 PHQ-9: PHQ-9 Score PHQ-9: Total score 7 08/22/24 14:06 Depression Screening Interpretation: Negative Thrive Assessment: Date of Thrive Assessment Date Thrive assessed 08/22/24 08/22/24 14:06 Currently or been in a relationship where the following occur: No concerns reported Coding Level of Care Code Est Pt Level 3 (51601) Diagnoses CHF (congestive heart failure) I50.9 Additional Codes CHEN-7 Assessment Billing - CHEN-7 Assessment Tool: CHEN-7 Assessment 61831 ([id number]) PHQ-9 - 52761 - PHQ-9 Billing: Yes ([id number]) Assessment & Plan Assessment & Plan (1) CHF (congestive heart failure): Code(s): I50.9 - Heart failure, unspecified Category: Medical Plan . Orders: Orders Comprehensive Met. Panel Today I50.9 - Heart failure, unspecified Magnesium Today I50.9 - Heart failure, unspecified Complete Blood Count Auto Diff Today I50.9 - Heart failure, unspecified XR chest 2V Today I50.9 - Heart failure, unspecified Medications: Changed From furosemide (Lasix) 20 mg PO Q OTHER DAY 14 tabs 0RF To furosemide (Lasix) 20 mg PO DAILY 14 tabs 0RF 14 days
== END 2024-08-22 15:06 | disposition home or self-care (01) ==
PROVIDERS: PCP Nurse Practitioner Family; Visit Provider Nurse Practitioner Family
DX: I50.9 Heart failure, unspecified (principal)

== ENCOUNTER → 2024-08-22 13:56 | Outpatient (BNVA) | payer MEDICARE, OTHER, SELFPAY | PROVIDERS: PCP Nurse Practitioner Family; Visit Provider Nurse Practitioner Family | DX: I50.9 Heart failure, unspecified (principal) | CPT/HCPCS: 96127; 99212 ==

== ENCOUNTER 2024-08-24 10:25 | Outpatient (REF) | payer MEDICARE, OTHER, SELFPAY ==
--- NOTE | ~2024-08-24 | XR_ITS ---
EXAMINATION: XR CHEST 2 VIEWS HISTORY: I50.9 - Heart failure, unspecified COMPARISON: Comparison is made with the prior examination dated 08/10/2024. FINDINGS: PA and lateral views of the chest are submitted. Left subclavian dual-chamber pacemaker is unchanged in position. Mild prominence of the pulmonary vasculature is unchanged and likely chronic. The lungs are clear. There is no pneumothorax or pleural effusion. The heart is enlarged. The aorta is calcified. There is degenerative disc disease of the spine. XR/XR chest 2V IMPRESSION: Cardiomegaly. Probable chronic mild pulmonary vascular prominence. Electronically signed by: Alan Hampton MD 08/27/2024 02:56 PM EST
[2024-08-24 13:03] LABS: MANUAL DIFF FLAG NO
[2024-08-24 13:06] LABS: Basophils Percent Auto 0.5 % (0-2); Eosinophils Absolute Auto 0.1 X10*3/uL (0.0-0.4); Eosinophils Percent Auto 1.7 % (0-4); Hematocrit 37.1 % (42.0-52.0); Imm Gran Abs Auto 0.02 X10*3/uL (0.00-0.03); Imm Gran Pct Auto 0.3 % (0.0-0.4); Lymphocytes Absolute Auto 1.7 X10*3/uL (1.2-4.9); Lymphocytes Percent Auto 26.2 % (20-40); Mean Corpuscular HGB Conc 32.3 g/dl (31.0-36.0); Mean Corpuscular Hemoglobin 30.6 pg (27.0-33.0); Mean Corpuscular Volume 94.6 fL (80.0-98.0); Mean Platelet Volume 9.6 fL (9.4-12.4); Monocytes Absolute Auto 0.5 X10*3/uL (0.1-1.2); Monocytes Percent Auto 7.7 % (2-11); Neutrophils Absolute Auto 4.1 x10*3/uL (2.0-8.3); Neutrophils Percent Auto 63.6 % (45-73); Platelet Count 246 X10*3/uL (160-400); Red Blood Count 3.92 X10*6/uL (4.60-5.80); Red Cell Distribution Width 14.4 % (11.0-16.0); White Blood Count 6.4 X10*3/uL (4.8-10.8)
[2024-08-24 13:10] LABS: INTERNATIONAL NORM RATIO 2.5 (0.9-1.1); Prothrombin Time 28.7 SEC (10.9-12.4)
[2024-08-24 13:17] LABS: Alanine Aminotransferase 20 U/L (0-40); Albumin Level 3.6 g/dL (3.5-5.0); Alkaline Phosphatase 35 U/L (39-117); Anion Gap 8 (12-20); Aspartate Amino Transferase 30 U/L (5-37); Bilirubin Total 0.7 mg/dL (0.0-1.0); Blood Urea Nitrogen 11 mg/dL (9-16); Calcium 8.6 mg/dL (8.4-10.2); Carbon Dioxide 26 mmol/L (22-29); Chloride 107 mmol/L (96-108); Estimated Glomerular Filt Rate > 60; Glucose Random 103 mg/dL (60-115); Magnesium 1.9 mg/dL (1.6-2.6); Potassium 3.8 mmol/L (3.3-5.1); Sodium 137 mmol/L (135-145); Total Protein 6.7 g/dL (6.5-8.0)
== END 2024-08-24 10:26 | disposition home or self-care (01) ==
LOC: HO.HMGCX 10:25
PROVIDERS: Internal Medicine; PCP Nurse Practitioner Family; Visit Provider Nurse Practitioner Family
DX: I50.9 Heart failure, unspecified (principal); Z79.01 Long term (current) use of 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s
CPT/HCPCS: 36415; 71046; 80053; 83735; 85025; 85610

== ENCOUNTER → 2024-08-24 10:43 | Outpatient (BNV) | payer MEDICARE, OTHER, SELFPAY | PROVIDERS: PCP Nurse Practitioner Family; Visit Provider Radiology Diagnostic Radiology | DX: I51.7 Cardiomegaly (principal) | CPT/HCPCS: 71046 ==

== ENCOUNTER → 2024-08-27 09:10 | Outpatient (BNVA) | payer MEDICARE, OTHER, SELFPAY | PROVIDERS: PCP Nurse Practitioner Family; Visit Provider Internal Medicine | DX: I48.20 Chronic atrial fibrillation, unspecified (principal); Z79.01 Long term (current) use of 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s; Z51.81 Encounter for therapeutic drug level monitoring | CPT/HCPCS: 99212 ==

== ENCOUNTER 2024-08-27 11:07 | Outpatient (AMB) | payer MEDICARE, OTHER, SELFPAY ==
[2024-08-27 11:11] VITALS: BP 120/72; PULSE 82; BMI 28.5
--- NOTE | 2024-08-27 11:11 | MHC.OFFVIS ---
Vital Signs 08/27/24 11:11 Height 6 ft 3 in Weight 227 lb 15.327 oz BMI 28.5 BP 120/72 Blood Pressure Location Lt brachial Position Sitting Pulse 82 Pulse Source Pulse Oximeter Intake Visit Reasons: 4 mth f/up Intake Note: 4 mth f/up, pt was in [facility] 08/20 Sheriff Detective Required: No Accompanied by: Daughter Allergies No Known Allergies [No Known Allergies*] Allergy (Verified 08/27/24 10:31) Medication List - Last Reconciled 08/27/24 by Delfino Fry MD atorvastatin 20 mg PO BEDTIME diltiazem HCl CD (Cardizem CD) 240 mg PO DAILY finasteride (Proscar) 5 mg PO DAILY 90 days furosemide (Lasix) 20 mg PO Q OTHER DAY magnesium 200 mg PO DAILY warfarin 2 mg See Protocol PO DAILY@1800 HPI Comments Details: Pleasant 88 year old gentleman here for follow-up. He was previously seeing Dr. Ku. He has background of atrial fibrillation. He had cardioversion as well as ablation while he was at [facility] and [facility]. Subsequently developed atrial fibrillation again reportedly. Unclear why he had a pacemaker placed but he had pacemaker placed many years ago. He is asymptomatic from atrial fibrillation point of view. Denies any chest pain shortness of breath. No heart failure episodes. Taking medications regularly. No bleeding issues. ECHO in 2020 did not show any wall motion abnormalities. Ejection fraction was 55-60%. Previously he has complained of some chest discomfort which led to Lexiscan which was normal. 01/04/2024: He returns for follow-up. He underwent surgery for hammertoes and he is walking better at this stage. He has left shoulder pain as well as left-sided neck pain. He also has noticed some fullness on the left side of his chest and there is some breast tissue which he has felt. He is concerned that is this related to any heart issue. He is getting a left shoulder injection tomorrow for shoulder pain. He has not been exercising regularly since the hammertoe surgery and due to shoulder pain and he has noticed that he gets out of breath easily. He has permanent atrial fibrillation and has been treated with a rate control strategy and has been on diltiazem. 04/30/2024: He is here for follow-up. No chest pain or shortness of breath. He has some balance issues and has been walking with cane off and on and I have advised him to be careful and use cane whenever he is walking. He also has been experiencing some dizziness especially when he changes posture. At nighttime and he is getting out of bed he gets lightheaded. He hydrates himself well. He is on combination diuretics and diltiazem 180 mg daily. He had stress testing done which showed small area of lateral ischemia in 10/26/2023. This was a preop assessment and he was advised to proceed with hammertoe surgery which he has done successfully. He has no anginal symptoms. 08/27/2024: He is here for follow-up. He is worried about lower extremity edema. There is significant edema in the right lower extremity at the ankles and is 3+ edema there. He also has leg edema on both sides approximately 1 to 2+. 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 He is denying any shortness of breath, orthopnea or PND. He has been drinking Gatorade for electrolytes because his potassium level was little low. He went to the emergency department and was advised to take Lasix 20 mg every other day. He said he saw his primary care physician and was changed to 40 mg which he took for few days but did not have any change in his swelling. He is unable to wear compression stockings because he can not get them on. [facility] Medical History Tachy-garrison syndrome Hypertension, essential, benign Hyperlipidemia Atrial fibrillation Osteoarthritis Pacemaker (~2008) Current use of anticoagulant therapy Surgical History History of colonoscopy History of eye surgery History of appendectomy Status post left foot surgery (~02/2020) Amputated toe of left foot History of cardiac pacemaker History of cardiac radiofrequency ablation (RFA) Family History Father No problems noted. Mother No problems noted. Social History Household Members: Spouse Housing: House Do you presently have visiting nurse or other home services: No Alcohol intake: current Alcohol intake frequency: a few times a week Alcohol type: beer Patient Tobacco Use Status: Former Tobacco user Years Smoked: 15 e-Cigarette/Vaping Use: Never Used Advance Directives Date on File: 09/27/22 service: No Current occupational status: retired Hearing needs: No Vision needs: Yes (Glasses) Review of Systems Const Denies chills, Denies fatigue, Denies fever(s), Denies frequent falls, Denies weakness, Denies weight gain and Denies weight loss ENT Denies dizziness Card Denies chest pain, Denies leg edema, Denies lightheadedness, Denies palpitations, Denies dyspnea and Denies dyspnea on exertion Resp Denies cough, Denies dyspnea and Denies dyspnea on exertion GI Denies hematochezia Musc Denies abnormal gait, Denies muscle weakness, Denies numbness, Denies radiating pain into limb and Denies tingling Neuro Denies abnormal gait, Denies dizziness, Denies frequent falls, Denies numbness, Denies tingling and Denies weakness Endo Denies fatigue and Denies palpitations Physical Exam Vital Signs: Last Vital Signs Pulse 82 08/27/24 11:11 BP 120/72 08/27/24 11:11 BMI result Body Mass Index 28.5 Last Vital Signs Temp 97.1 F 08/04/24 15:51 Pulse 90 08/04/24 15:51 Resp 18 08/04/24 15:51 BP 130/72 08/04/24 15:51 Pulse Ox 90 L 08/04/24 15:51 O2 Del Method Room Air 08/04/24 15:51 BMI result Body Mass Index 27.3 GENERAL APPEARANCE: in no acute distress, pleasant. NECK: no carotid bruit, mild jugular venous distention. SKIN: no suspicious lesions, warm and dry. HEART: no murmurs, irregular rate and rhythm. LUNGS: Crackles right base. ABDOMEN: soft, nontender. EXTREMITIES: Bilateral lower extremity edema right more than left. Right ankle 3+ edema. PERIPHERAL PULSES: equal. NEUROLOGIC: No gross deficits, AAO X 3 Results AMB INR Fingerstick AMB INR Fingerstick 2.1 Last Edit by Karina Epperson RN on 08/27/24 10:32 [facility] Assessment & Plan Assessment & Plan (1) Peripheral edema: Code(s): R60.0 - Localized edema Category: Medical (2) Atrial fibrillation: Code(s): I48.91 - Unspecified atrial fibrillation Category: Medical (3) Hypertension, essential, benign: Code(s): I10 - Essential (primary) hypertension Category: Medical Plan 88-year-old gentleman who is here for follow-up. He was recently in the hospital with cellulitis after a fall and at that time were noticed to be in AFib with RVR and some concern for congestive heart failure came up. I saw him at that time and he did not appear to be significantly volume overloaded but was diuresed before that. In any case he left for home with a higher dose of diltiazem 240 mg daily because his heart rate was not well controlled in the hospital with atrial fibrillation. He was also on hydrochlorothiazide triamterene combination in the past but due to some dizziness this was discontinued. He has been drinking Gatorade daily. He has bilateral lower extremity edema right more than left and this is significant pitting edema. Mild JVD is present too. Lasix 40 mg daily. Adding spironolactone 25 mg daily. We will do venous reflux study to assess right leg for any venous insufficiency. If there is significant venous insufficiency then he needs to go back to vascular surgery to discuss vein ablation. He will see us back in couple of weeks. If edema improves and we can try compression stockings if he can wear them. If he does not improve with diuretics and venous insufficiency is ruled out then I will stop the diltiazem and transition him to metoprolol. Thank you for allowing me to participate in the care of your patient. Please feel free to contact me if you have any questions. Orders: Orders US venous insuf bilat Today R60.0 - Localized edema Medications: New furosemide (Lasix) 40 mg PO DAILY 90 tabs 3RF R60.0 - Localized edema furosemide (Lasix) 40 mg PO DAILY 90 tabs 3RF R60.0 - Localized edema spironolactone 25 mg PO DAILY 90 tabs 3RF R60.0 - Localized edema spironolactone 25 mg PO DAILY 90 tabs 3RF R60.0 - Localized edema Coding Level of Care Code Est Pt Level 4 (53175) Diagnoses Peripheral edema R60.0 Atrial fibrillation I48.91 Hypertension, essential, benign I10
== END 2024-08-27 11:52 | disposition home or self-care (01) ==
PROVIDERS: PCP Nurse Practitioner Family; Visit Provider Internal Medicine Cardiovascular Disease
DX: R60.0 Localized edema (principal); I48.91 Unspecified atrial fibrillation; I10 Essential (primary) hypertension
CPT/HCPCS: 99214

== ENCOUNTER → 2024-08-28 23:59 | Outpatient (BNV) | payer MEDICARE, OTHER, SELFPAY ==
--- NOTE | 2024-09-07 18:27 | A.OFFVIS_ITS ---
Intake Visit Reasons: Remote device check- [facility] Allergies No Known Allergies [No Known Allergies*] Allergy (Verified 09/06/24 13:34) [facility] Medical History Tachy-garrison syndrome Hypertension, essential, benign Hyperlipidemia Atrial fibrillation Osteoarthritis Pacemaker (~2008) Current use of anticoagulant therapy Surgical History History of colonoscopy History of eye surgery History of appendectomy Status post left foot surgery (~02/2020) Amputated toe of left foot History of cardiac pacemaker History of cardiac radiofrequency ablation (RFA) Family History Father No problems noted. Mother No problems noted. Social History Household Members: Spouse Housing: House Do you presently have visiting nurse or other home services: No Alcohol intake: current Alcohol intake frequency: a few times a week Alcohol type: beer Patient Tobacco Use Status: Former Tobacco user Years Smoked: 15 e-Cigarette/Vaping Use: Never Used Advance Directives Date on File: 09/27/22 service: No Current occupational status: retired Hearing needs: No Vision needs: Yes (Glasses) Office Procedures Cardiac Device Check Cardiac Device Check Details: PPM Single lead. V-paced 25%. 75032-[id number] Cardiac Device Check, leadless/single lead pacemaker Procedure code (CPT) selection complete Assessment & Plan Assessment & Plan (1) Atrial fibrillation: Code(s): I48.91 - Unspecified atrial fibrillation Category: Medical Plan: Coding Level of Care Code Procedure Only Diagnoses Atrial fibrillation I48.91 CPT Codes Cardiac Device Check - Cardiac Device 1: [id number] Cardiac Device Check, felipe dless/single lead pacemaker ([id number])
== END ==
PROVIDERS: PCP Nurse Practitioner Family; Visit Provider Internal Medicine Cardiovascular Disease
DX: I48.91 Unspecified atrial fibrillation (principal); Z95.0 Presence of cardiac pacemaker
CPT/HCPCS: 93294

== ENCOUNTER 2024-09-03 08:51 | Outpatient (AMB) | payer MEDICARE, OTHER, SELFPAY ==
--- NOTE | 2024-09-03 08:55 | A.OFFVIS_ITS ---
Intake Vital Signs 09/03/24 08:58 Height 6 ft 3 in Weight 225 lb 4 oz BMI 28.2 BP 104/52 L Blood Pressure Location Rt brachial Position Sitting Pulse 97 Pulse Source Pulse Oximeter Temp 98.6 F Temp Source Oral Pulse Oximetry (%) 98 Oxygen Delivery Method Room Air Intake Visit Reasons: V [id number] Allergies No Known Allergies [No Known Allergies*] Allergy (Verified 09/03/24 09:08) Do you need a note to return to daycare/school/sports/work: No HPI SWV [id number] HPI Details sees cardiology and urology. PPP scan pile, CCC partially filled out. [facility] Medical History Tachy-garrison syndrome Hypertension, essential, benign Hyperlipidemia Atrial fibrillation Osteoarthritis Pacemaker (~2008) Current use of anticoagulant therapy Surgical History History of colonoscopy History of eye surgery History of appendectomy Status post left foot surgery (~02/2020) Amputated toe of left foot History of cardiac pacemaker History of cardiac radiofrequency ablation (RFA) Family History Father No problems noted. Mother No problems noted. Social History Household Members: Spouse Housing: House Do you presently have visiting nurse or other home services: No Alcohol intake: current Alcohol intake frequency: a few times a week Alcohol type: beer Patient Tobacco Use Status: Former Tobacco user Years Smoked: 15 e-Cigarette/Vaping Use: Never Used Advance Directives Date on File: 09/27/22 service: No Current occupational status: retired Hearing needs: No Vision needs: Yes (Glasses) Questionnaire Medicare Wellness Checkup What is your age?: 80 or older What gender do you identify with?: male During the past 4 weeks, how much have you been bothered by emotional problems such as feeling anxious, depressed, irritable, sad or downhearted, and blue?: not at all During the past 4 weeks, has your physical & emotional health limited your social activities with family, friends, neighbors, or groups?: not at all During the past 4 weeks, how much bodily pain have you generally had?: no pain During the past 4 weeks, was someone available to help you if you needed & wanted help?: yes, as much as I wanted During the past 4 weeks, what was the hardest physical activity you could do for at least 2 minutes?: light Can you get to places out of walking distance without help? (For eg., can you travel alone on buses, taxis or drive your car?): Yes Can you go shopping for groceries or clothes without someone's help?: Yes Can you prepare your own meals?: Yes Can you do your housework without help?: Yes Because of any health problems, do you need the help of another person with your personal care needs such as eating, bathing, dressing or getting around the house?: No Can you handle your own money without help?: Yes During the past 4 weeks, how would you rate your health in general?: fair During the past 4 weeks how have things been going for you?: very well; could hardly better Are you having difficulties driving your car?: sometimes Do you always fasten your seat belt when you are in a car?: yes, usually During past 4 weeks, have you been bothered by the following: never: Trouble eating well?, Teeth or denture problems? and Problems using the telephone?, sometimes: Falling or dizzy when standing up, often: Tiredness or fatigue? and always: Sexual problems? Have you fallen 2 or more times in the past year?: No Are you afraid of falling?: Yes Are you a smoker?: no During the past 4 weeks, how many drinks of wine, beer, or other alcoholic beverages did you have?: 1 drink or less per week Do you exercise for about 20 minutes 3 or more times a week?: no, I usually do not exercise this much Have you been given information to help with the following?: yes: Hazards in your house that might hurt you? and no: Keeping track of your medications? How often do you have trouble taking medicines the way you have been told to take them?: I always take medicine as prescribed How confident are you that you can control & manage most of your health problems?: somewhat confident What is your race?: White Mini Mental State Exam (MMSE) Orientation What is the (year) (season) (date) (day) (month)?: year, season, date, day and month Where are we (state) (county) (town or city) (hospital) (floor)?: state, county, town or city, hospital/clinic and floor Registration Name of 3 unrelated objects clearly and slowly, then ask patient to repeat all 3 of them. (1st repeat determines score. Make sure they can repeat all three): object 1, object 2 and object 3 Attention & Calculation (CHOOSE ONE) Spell WORLD backwards (DLROW): 3 letters Recall Ask patient to repeat the 3 items from question #3.: object 1, object 2 and object 3 Language Show patient a wristwatch & ask what it is. Repeat for pencil.: watch and pencil Ask the patient to repeat the phrase 'No ifs, ands, or buts' after you.: correct Ask the patient to 'take a piece of paper with their right hand' 'fold paper in half' 'place paper on floor': take paper in right hand, fold paper in half and place paper on floor Print the sentence 'CLOSE YOUR EYES' on a piece. If patient actually closes eyes then score.: followed written direction Give patient a blank piece of paper & ask to write a sentence. Score if it contains a noun & verb.: sentence contains subject and verb Ask patient to copy figure of intersecting pentagons exactly. Score if all 10 angles & 2 intersects are included.: all 10 angles present & 2 are intersected Score Score: 28 Activity of Daily Living Bathing - sponge bath, tub bath or shower: receives no assistance (gets in/out by self, if usual bathing means Dressing - getting clothes from closets & drawers, including inner/outer garments & fasteners.: gets clothes & gets completely dressed without help Toileting - going to the 'toilet room' for urine/bowel elimination & cleaning self/arranging clothes: goes to toilet room, cleans self, arranges clothes without help Transfer: moves in & out of bed and chair without help (may use support object) (uses a cane currently) Continence: controls urination/bowel movements completely by self Feeding: feeds self without help Total Score: 0 Information obtained from: patient Using telephone: independent Traveling: independent Shopping: independent Preparing meals: independent Housework: independent Taking medicine: independent Managing money: independent PHQ-9 Over the last 2 weeks, how often have you been bothered by any of the following problems? 1. Little interest or pleasure in doing things: not at all 2. Feeling down, depressed, or hopeless: not at all 3. Trouble falling or staying asleep, or sleeping too much: nearly every day 4. Feeling tired or having little energy: nearly every day 5. Poor appetite or overeating: not at all 6. Feeling bad about yourself - or that you are a failure or have let yourself or your family down: not at all 7. Trouble concentrating on things, such as reading the newspaper or watching television: not at all 8. Moving or speaking so slowly that other people could have noticed. Or the opposite - being so fidgety or restless that you have been moving around a lot more than usual: not at all 9. Thoughts that you would be better off or of hurting yourself in some way: not at all Total score: 6 Depression Screening Interpretation: Negative Depression Screening Done: Yes 77263 - PHQ-9 Billing: Yes Source: Developed by Drs. Alan Kim, Mandi Novak, Brendon Barajas and colleagues, with an educational antoni from [employer]. Physical Exam Vital Signs: Last Vital Signs Temp 98.6 F 09/03/24 08:58 Pulse 97 09/03/24 08:58 BP 104/52 L 09/03/24 08:58 Pulse Ox 98 09/03/24 08:58 Oxygen Delivery Method Room Air 09/03/24 08:58 BMI result Body Mass Index 28.2 Neuro Other: able to stand from sitting position. unable to tandem walk currently (using cane), did not pass whisper test, neg rhomberg Assessment & Plan Assessment & Plan (1) Encounter for subsequent annual wellness visit in Medicare patient: Code(s): Z00.00 - Encounter for general adult medical examination without abnormal findings Plan . Quality Reporting (2019) Depression/Bipolar (159/160/161/177) PHQ-9: Total score: 6 Coding Level of Care Code Medicare Subsequent (G0439) Diagnoses Encounter for subsequent annual wellness visit in Medicare patient Z00.00 Additional Codes PHQ-9 - 44140 - PHQ-9 Billing: Yes ([id number]) Advance Care Planning Forms completed: Health Care Proxy (done today), MOLST (scanned) and Living will (already filled out according to pt, )
[2024-09-03 08:58] VITALS: BP 104/52; PULSE 97; TEMP 37; O2SAT 98; BMI 28.2
== END 2024-09-03 10:14 | disposition home or self-care (01) ==
PROVIDERS: PCP Nurse Practitioner Family; Visit Provider Nurse Practitioner Family
DX: Z00.00 Encounter for general adult medical examination without abnormal findings (principal)

== ENCOUNTER → 2024-09-03 08:51 | Outpatient (BNVA) | payer MEDICARE, OTHER, SELFPAY | PROVIDERS: PCP Nurse Practitioner Family; Visit Provider Nurse Practitioner Family | DX: Z00.00 Encounter for general adult medical examination without abnormal findings (principal); I10 Essential (primary) hypertension; E78.5 Hyperlipidemia, unspecified | CPT/HCPCS: 96127 ==

== ENCOUNTER → 2024-09-06 12:59 | Outpatient (BNVA) | payer MEDICARE, OTHER, SELFPAY | PROVIDERS: PCP Nurse Practitioner Family; Visit Provider Internal Medicine ==

== ENCOUNTER → 2024-09-13 10:35 | Outpatient (BNV) | payer MEDICARE, OTHER, SELFPAY | PROVIDERS: PCP Nurse Practitioner Family; Visit Provider Radiology Diagnostic Radiology | DX: I83.813 Varicose veins of bilateral lower extremities with pain (principal) | CPT/HCPCS: 93970 ==

== ENCOUNTER 2024-09-17 09:26 | Outpatient (AMB) | payer MEDICARE, OTHER, SELFPAY ==
[2024-09-17 09:28] VITALS: BP 120/60; PULSE 86; BMI 27.9
--- NOTE | 2024-09-17 09:28 | A.OFFVIS_ITS ---
Vital Signs 09/17/24 09:28 Height 6 ft 3 in Weight 223 lb 1.725 oz BMI 27.9 BP 120/60 Blood Pressure Location Lt brachial Position Sitting Pulse 86 Pulse Source Pulse Oximeter Intake Visit Reasons: 2 w f/up Intake Note: 2 wk f/up Button Sewer Required: No Accompanied by: Daughter Allergies No Known Allergies [No Known Allergies*] Allergy (Verified 09/06/24 13:34) Medication List - Last Reconciled 09/17/24 by Delfino Fry MD atorvastatin 20 mg PO BEDTIME diltiazem HCl CD (Cardizem CD) 240 mg PO DAILY finasteride (Proscar) 5 mg PO DAILY 90 days furosemide (Lasix) 40 mg PO DAILY magnesium 200 mg PO DAILY spironolactone 25 mg PO DAILY tamsulosin 0.4 mg PO BEDTIME warfarin 2 mg See Protocol PO DAILY@1800 HPI Comments Details: Pleasant 89 year old gentleman here for follow-up. He was previously seeing Dr. Ku. He has background of atrial fibrillation. He had cardioversion as well as ablation while he was at [facility] and [facility]. Subsequently developed atrial fibrillation again reportedly. Unclear why he had a pacemaker placed but he had pacemaker placed many years ago. He is asymptomatic from atrial fibrillation point of view. Denies any chest pain shortness of breath. No heart failure episodes. Taking medications regularly. No bleeding issues. ECHO in 2020 did not show any wall motion abnormalities. Ejection fraction was 55-60%. Previously he has complained of some chest discomfort which led to Lexiscan which was normal. 01/04/2024: He returns for follow-up. He underwent surgery for hammertoes and he is walking better at this stage. He has left shoulder pain as well as left- sided neck pain. He also has noticed some fullness on the left side of his chest and there is some breast tissue which he has felt. He is concerned that is this related to any heart issue. He is getting a left shoulder injection tomorrow for shoulder pain. He has not been exercising regularly since the hammertoe surgery and due to shoulder pain and he has noticed that he gets out of breath easily. He has permanent atrial fibrillation and has been treated with a rate control strategy and has been on diltiazem. 04/30/2024: He is here for follow-up. No chest pain or shortness of breath. He has some balance issues and has been walking with cane off and on and I have advised him to be careful and use cane whenever he is walking. He also has been experiencing some dizziness especially when he changes posture. At nighttime and he is getting out of bed he gets lightheaded. He hydrates himself well. He is on combination diuretics and diltiazem 180 mg daily. He had stress testing done which showed small area of lateral ischemia in 10/26/2023. This was a preop assessment and he was advised to proceed with hammertoe surgery which he has done successfully. He has no anginal symptoms. 08/27/2024: He is here for follow-up. He is worried about lower extremity edema. There is significant edema in the right lower extremity at the ankles and is 3+ edema there. He also has leg edema on both sides approximately 1 to 2+. 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 He is denying any shortness of breath, orthopnea or PND. He has been drinking Gatorade for electrolytes because his potassium level was little low. He went to the emergency department and was advised to take Lasix 20 mg every other day. He said he saw his primary care physician and was changed to 40 mg which he took for few days but did not have any change in his swelling. He is unable to wear compression stockings because he can not get them on. 09/17/2024: He is here for follow-up. On last visit we advised him to take Lasix daily and added spironolactone. He was advised not to use Gatorade. He underwent venous reflux study and he was referred to vascular surgery for further discussion about it appears no further procedures are indicated. He continues to have lower extremity edema although it looks better to me compared to last time. He is denying any shortness of breath. In August when he got admitted to [facility] with shortness of breath his chest x-ray did have mild congestion and he was in heart failure. Is denying any dyspnea currently. He tried the compression stockings but could not tolerate them. [facility] Medical History Tachy-garrison syndrome Hypertension, essential, benign Hyperlipidemia Atrial fibrillation Osteoarthritis Pacemaker (~2008) Current use of anticoagulant therapy Surgical History History of colonoscopy History of eye surgery History of appendectomy Status post left foot surgery (~02/2020) Amputated toe of left foot History of cardiac pacemaker History of cardiac radiofrequency ablation (RFA) Family History Father No problems noted. Mother No problems noted. Social History Household Members: Spouse Housing: House Do you presently have visiting nurse or other home services: No Alcohol intake: current Alcohol intake frequency: a few times a week Alcohol type: beer Patient Tobacco Use Status: Former Tobacco user Years Smoked: 15 e-Cigarette/Vaping Use: Never Used Advance Directives Date on File: 09/27/22 service: No Current occupational status: retired Hearing needs: No Vision needs: Yes (Glasses) Review of Systems Const Denies chills, Denies fatigue, Denies fever(s), Denies frequent falls, Denies weakness, Denies weight gain and Denies weight loss ENT Denies dizziness Card Denies chest pain, Denies leg edema, Denies lightheadedness, Denies palpitations, Denies dyspnea and Denies dyspnea on exertion Resp Denies cough, Denies dyspnea and Denies dyspnea on exertion GI Denies hematochezia Musc Denies abnormal gait, Denies muscle weakness, Denies numbness, Denies radiating pain into limb and Denies tingling Neuro Denies abnormal gait, Denies dizziness, Denies frequent falls, Denies numbness, Denies tingling and Denies weakness Endo Denies fatigue and Denies palpitations Physical Exam Vital Signs: Last Vital Signs Pulse 86 09/17/24 09:28 BP 120/60 09/17/24 09:28 BMI result Body Mass Index 27.9 Last Vital Signs Temp 97.1 F 08/04/24 15:51 Pulse 90 08/04/24 15:51 Resp 18 08/04/24 15:51 BP 130/72 08/04/24 15:51 Pulse Ox 90 L 08/04/24 15:51 O2 Del Method Room Air 08/04/24 15:51 BMI result Body Mass Index 27.3 GENERAL APPEARANCE: in no acute distress, pleasant. NECK: no carotid bruit, no jugular venous distention. SKIN: no suspicious lesions, warm and dry. HEART: no murmurs, irregular rate and rhythm. LUNGS: Clear to auscultation. ABDOMEN: soft, nontender. EXTREMITIES: Bilateral lower extremity edema right more than left. Right ankle 2-3 + edema. PERIPHERAL PULSES: equal. NEUROLOGIC: No gross deficits, AAO X 3 Assessment & Plan Assessment & Plan (1) Peripheral edema: Code(s): R60.0 - Localized edema Category: Medical (2) Chronic diastolic heart failure: Code(s): I50.32 - Chronic diastolic (congestive) heart failure Category: Medical (3) Atrial fibrillation: Code(s): I48.91 - Unspecified atrial fibrillation Category: Medical Plan Pleasant 89 year gentleman who is here for follow-up. He has background history of atrial fibrillation which was treated with rate control strategy given lack of symptoms. He has been on diltiazem 240 mg daily and Coumadin. Rates are well controlled. He has been struggling with lower extremity edema and in August he was in the hospital with shortness of breath and at that time x-ray did show some congestion. He did have an episode of congestive heart failure and was diuresed. Overall volume status is improving but he continues to have significant peripheral edema which is the main concern he is here for. He was referred back to vascular surgery but it appears there is no indication for any further procedures for venous reflux. We discussed in detail about management options. I have explained to him that he does not appear to be in florid heart failure but we can try higher dose of diuretics to see if that help his lower extremity edema. Also I will give him an alternative for diltiazem and stop the diltiazem 240 mg and start him on Toprol-XL 50 mg once a day. He will start it in 2 days after holding diltiazem. We discussed about dizziness and lightheadedness and that he will reach out to us in case any of these symptoms start happening. Thank you for allowing me to participate in the care of your patient. Please feel free to contact me if you have any questions. Medications: New metoprolol succinate ER (Toprol XL) 50 mg PO DAILY 90 tabs 3RF Changed From furosemide (Lasix) 40 mg PO DAILY 90 tabs 3RF R60.0 - Localized edema To furosemide (Lasix) 40 mg PO BID 120 tabs 4RF R60.0 - Localized edema Discontinued diltiazem HCl CD (Cardizem CD) Discontinued Reason: Doctor's Order 240 mg PO DAILY 30 caps 0RF Coding Level of Care Code Est Pt Level 5 (01788) Diagnoses Peripheral edema R60.0 Chronic diastolic heart failure I50.32 Atrial fibrillation I48.91 Time Spent (min) 40
--- OUTSIDE RECORDS SUMMARY | 2024-09-17 10:05 | XMS_ITS ---
Author Organization [facility] Address [address] [place] [address] Care Team Providers Care Bench Loom Weaver Name Role Phone Romain Glez Primary Care Provider Nayladeonna Kasia Saleemter Unavailable [phone] Allergies Allergen (clinical drug ingredient) Drug/Non Drug Allergy documented on EMR Reaction Allergy Type Onset Date Status ibuprofen Advil heart meds Drug Allergy Active Aleve heart meds Drug Allergy Active aspirin Aspirin on warfarin Drug Allergy Activ e Motrin heart meds Drug Allergy Active Seasonal IC Unknown Drug Allergy Activ e Penicillin Unknown Drug Allergy Active REASON FOR VISIT Last PCP Visit: 07/20/23Anastasia(s) Medications Medication SIG (Take, Route, Frequency, Duration) Notes Start Date End Date Status Atorvastatin Calcium 20 MG 1 tablet Orally Once a day for 30 day(s) Active dilTIAZem HCl ER 180 MG 1 capsule Orally Once a day for 30 day(s) Active Warfarin Sodium 2 MG 1 tablet Orally Onc e a day for 30 day(s) Active Triamterene-HCTZ 75-50 MG 1 tablet in th e morning Orally Once a day for 30 day(s) Active Keflex 500 MG 1 capsule Orally st[place] ry 12 hrs for 10 day(s) 01/31/2020 Not-Taking Social History Tobacco Use: Social History Observation Description Date Details (start date - stop date) Former Smoker NA - NA Tobacco Use/Smoking Question Answer Notes Are you a: former smoker Additional Findings: Tobacco Non-User Current no n-smoker Alcohol Screen Question Answer Notes Did you have a drink containing alcohol in the p ast year? Yes Points 0 Interpretation Negative Tobacco use other than smoking: Question Answer Notes Are you an other tobacco user? 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 ; Other hammer toe(s) (acquired), right foot M20.41 and Other hammer toe(s) (acquired), left foot M20.42 Assessments Encounter Date Diagnosis (ICD Code) Assessment Notes Treatment Notes Treatment Clinical Notes Section Notes 08/18/2023 Tinea unguium (ICD-10 - B35.1) 08/18/2023 Pain in right toe(s) (ICD-10 - M79.674) 08/18/2023 Pain in left toe(s) (ICD-10 - M79.675) 08/18/2023 Other viral warts (ICD-10 - B07.8) 08/18/2023 Pain in left foot (ICD-10 - M79.672) 08/18/2023 Pain in right foot (ICD-10 - M79.671) 08/18/2023 Non-pressure chronic ulcer of other part of right foot limited to breakdown of skin (ICD-10 - L97.511) 08/18/2023 Other hammer toe(s) (acquired), right foot (ICD-10 - M20.41) 08/18/2023 Other hammer toe(s) (acquired), left foot (ICD-10 - M20.42) Plan Of Treatment Pending Test Test Name Order Date 42982- Debride <25 sq cm 08/18/2023 Next Appt Details Follow Up: prn, Reason: Procedure Notes * Category Sub-Category Detail Notes Wart Treatment Procedure Verrucae(s) were debrided to pin-point bleeding margins with sterile surgical blade (49788), silver nitrate chemocautery applied, recomm. Wartstick 40 percent Salicylic acid application under occlusion as directed Debride skin< 25 sq cm Open wound Open woun d selective debridement of fibrin, devitilized epidermis and/or dermis, exudate, using sterile sharp dissection, without use of anesthesia, with/without topical applications, wound assessment and instructions for ongoing care, Wound Care, The patient was instructed on importance of proper wound care consisting of pressure reduction, maintainance of moist wound environment, and regular debridement of devitilized tissue , The patient is to cleanse the wound with warm soapy water/peroxide/saline or betadine BID based on product availability , The patient is to apply Antibiotic Oint. to the wound and cover with a DSD , The patient was instructed to change dressings according to orders or PRN saturation, leaks, The patient was instructed to monitor and report any signs or symptoms of infection or any untoward reactions (53750) Progress Notes * MARNIZander TEMPLETON LDOB: [birth year] (87 yo M)Acc No.[id number]:08/18/2023 Progress Notes Patient:?Zander Espinal Provider:?Sebastian Smith DPM :1935???Age:87 Y???Sex:Male Chad e:08/18/2023 Address:[address] [place] [id number] Pcp:FRIDA Le Subjective: * Chief Complaints: * ??? Last PCP Visit: 07/20/23 Wart(s) * HPI: ???Toe pain:?Nature:?throbbing , aching.?Location:?2nd toe , Right foot , 3rd toe , B/L feet.?Duration:?several years.?Course:?progressive.?Aggrevated by:?shoes, any pressure , standing/walking.?Treatments:?bracing/splinting/padding and debridement.?Severity/Quality:?moderate , severe.?Misc:?pt awaiting appt at [facility] for evalution of circulation and vascular clearance for digital sx samina feet.?Wart:?Pt States Last PCP Visit:?Date:?08/10/2022 * ROS:?General/Constitutional:?Nausea?denies.?Vomiting?denies.?Hunger Thirst?denies.?Loss appetite?denies.?Chills?denies.?Fatigue?denies.?Fever?denies.?Night Sweats?denies.?Unexplained weight loss?denies.?Unexplained weight gain?denies.?Ophthalmologic:?Blurred vision?denies.?Red eye?denies.?HEENTM:?Dentures?admits.?Dizziness?admits, denies, denies.?Glasses/contacts?admits, denies, denies.?Retinopathy?denies, denies, denies.?Blurred/double vision?denies.?TMJ?denies.?Discharge/drainage?denies. Implants?denies.?Sore throat?denies, denies.?Dental implants?denies, denies.?Hard of hearing ?admits.?Difficulty chewing/swallowing/speaking?denies.?Nose bleeds?denies, denies, denies.?Sore mouth?denies, denies, denies.?Swollen glands?denies.?Respiratory:?On Oxygen?denies, denies, denies.?Pneumonia/pleurisy?denies, denies, denies.?Bronchitis?denies, denies, denies.?Emphysema?denies, denies, denies.?Coughing?admits, denies, denies.?Cough blood?denies, denies, denies.?Shortness of breath?denies, denies, denies.?Wheezing?admits, denies, denies.?Cardiovascular:?Pacemaker?admits.?MVP?denies.?WPW?denies, denies, denies.?CHF?denies, denies, denies.?Heart attack?denies, denies, denies.?Septal defect?denies, denies, denies.?Rapid beat?denies, denies, denies. Chest pain ?denies, denies, denies.?Atrial Fib.?admits, denies, denies.?Murmur/Palpitations?admits, denies, denies.?Gastrointestinal:?Hemorrhoids?denies, denies, denies.?Stomach/Abdominal pain?denies, denies, denies.?Dark blood stool?denies, denies, denies.?Irritable bowel ?denies, denies, denies.?Constipation?denies, denies, denies.?Diarrhea denies, denies, denies.?Vomiting?denies.?Hematology:?Swelling?denies, denies, denies.?Clots?Admits, denies.?Varicose Veins?admits.?Bruising?denies, denies, denies.?Bleeding problem?denies, denies, denies.?Genitourinary:?Blood urine?admits, denies, denies.?Frequent/Painfu/urination/bladder control?denies, denies, denies.?Kidney stones?admits, denies, denies.?Infection (UTI)?denies, denies, denies.?Nephropathy?denies, denies, denies. sex trans dis (STD)?denies, denies.?Prostate?admits, denies.?Musculoskeletal:?Hammertoes?denies, denies, denies.?Bunions?denies, denies, denies.?Scoliosis/kyphosis?denies.?Back Pain?admits, denies.?Muscle Cramps/ Resting?admits, denies.?Muscle cramps / walking?admits, denies, denies. Generalized aches and pains?denies, denies, denies.?Weakness?admits, denies, denies.?Integ.:?Wray?denies, denies, denies.?Scars?denies, denies, denies.?Corns/calluses?denies, denies, denies.?Ingrown nails?denies, denies, denies.?Painful nails?denies, denies, denies.?Open Sores?denies, denies.?Rashes?denies, denies, denies.?Neurologic:?Difficulty sleeping?denies, denies, denies.?Bipolar?denies.?Brain disorder?denies, denies, denies.?Numbness?admits, denies.?Balance trouble?admits, denies, denies.?Confusion?denies, denies, denies.?Fainting/blackouts?denies.?Headache?denies.?Tingling?admits, denies.?Tremors?denies.? * Medical History:? * Surgical History:?Pacemaker 11/25/08Heart Ablations 2007,2008HT L2nd, Skin Ulcer L 02/07/2020cataracts * Hospitalization/Major Diagno stic Procedure:?Denies Past Hospitalization * Family History:?Mother: dece ased, kidney removed, diagnosed with Unspecified essential hypertension, Unspecified heart disease.?Father: , poor circulation, diagnosed with Unspecified essential hypertension, Unspecified heart disease.?Siblings: diagnosed with Family history of arthritis.? * Social History:?Tobacco Use:?Tobacco Use/Smoking?Are you a:?former smoker ?Additional Findings: Tobacco Non-User?Current non-smoker ?Tobacco use other than smoking?Are you an other tobacco user??No ???Drugs/Alcohol:?Drugs?Have you used drugs other than those for medical reasons in the past 12 months??No ?Alcohol Screen?Did you have a drink containing alcohol in the past year??Yes ?Points?0 ?Interpretation?Negative ???Miscellaneous:?Caffeine: yes, frequency:, 1 cups per day. ?Children: yes, 5. ?Exercise: yes, gardening/yard work. ?Marital status: . ?Occupation: Retired. * Medications:?TakingWarfarin Sodium 2 MG Tablet 1 tablet Orally Once a dayTriamterene-HCTZ 75-50 MG Tablet 1 tablet in the morning Orally Once a dayAtorvastatin Calcium 20 MG Tablet 1 tablet Orally Once a daydilTIAZem HCl ER 180 MG Capsule Extended Release 24 Hour 1 capsule Orally Once a dayTaking Warfarin Sodium 2 MG Tablet 1 tablet Orally Once a dayTaking Triamterene-HCTZ 75-50 MG Tablet 1 tablet in the morning Orally Once a dayTaking Atorvastatin Calcium 20 MG Tablet 1 tablet Orally Once a dayTaking dilTIAZem HCl ER 180 MG Capsule Extended Release 24 Hour 1 capsule Orally Once a dayNot-Taking/PRNKeflex 500 MG Capsule 1 capsule Orally every 12 hrsMedication List reviewed and reconciled with the patientNot- Taking/PRN Keflex 500 MG Capsule 1 capsule Orally every 12 hrsMedication List reviewed and reconciled with the patient * Allergies:?Seasonal ICPenici llinAspirin: on warfarinMotrin: heart medsAdvil: heart medsAleve: heart medsyes[Allergies Verified] Objective: * Vitals:?Ht: 6 ft 3 in, Wt:22 0, BMI: 27.5, Shoe size:11.5, BP:130/70 mm Hg, Wt- k.79 kg. * Examination: ???Nails: ?NAILS are:?elongated,overgrown,dystrophic,greater than 3mm thick,discolored and friable with crumbly malodorous subungual debris, with pain on palpation , TA , T2 , T3 , 1-5 Right foot , There is evidence of pain on palpation, and an area of subungual hemorrhagic fluid with a pre-operative size measuring approximately ( 8 ) mm square , TA with onycholysis noted.?Dermatologic: ?SKIN FINDINGS:?Skin shows sign(s) of keratosis with dried blood distal t2 and t6.?VERRUCA:?Reveals a Single , multi-loculated , mosaic-patterned, round, raised, flat-topped, petechial bleeding papule(s), with cauliflower appearance and interruption of skin lines, pain to lateral compression, and size estimated at __1__ mm diameter , plantar Heel , LEFT.?ULCER:? LOCATION--plantar t6, SIZE, 5mm X 4mm X 1-2mm, BASE, fibrogranular, RIM, hyperkeratotic, UNDERMINING, absent, TRACKING, Full thickness breakdown of skin,NECROTIC TISSUE, loosely-adherent,yellow slough DRAINAGE, blood, mild, MALODOR, absent, CALOR, absent, ERYTHEMA, absent, PAIN ON PALPATION, present.?General Examination: ?GENERAL APPEARANCE:?pleasant, alert, well nourished, well developed, well hydrated, with good attention to hygene/body habitus, and in no acute distress.?ORIENTED:?person,place, and time.?Neurological: ?SENSORY:?Neurological exam reveals intact sensorium, pain sensation normal, vibration sensation intact, pinprick sensation is normal in the lower extremities, Pt denies, anesthesia, burning, paresthesia, tingling, B/L.?BABINSKI REFLEX:?absent.?Vascular: ?DP PULSES:?0/4, B/L.?PT PULSES:?0/4, B/L.?CAPILLARY FILL TIME:?3 secs. per digit, B/L.?SKIN TEMPERTURE GRADIENT OF THE LOWER EXTERMITIES:?warm to cool, proximal to distal, B/L.?HAIR GROWTH/TEXTURE/ELASTICITY/TURGOR:?normal, B/L.?PIGMENTATION:?normal, B/L.?EDEMA:?/ , Right , Ankle(s).?TELANGECTASIA:?absent.?VARICOSITIES:?absent.?Orthopedic: ?MUSCLE STRENGTH:?5/5 all groups in a symmetrical fashion , B/L.?GAIT ABNORMALITY:?pronated, abducted, B/L.?DIGITAL DEFORMITIES:? Digital contracture--rigid t2, t6, t7 dipj's.? 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 Plan: * Treatment: * Procedures:?Debride skin< 25 sq cm:?Open wound?Open wound selective debridement of fibrin, devitilized epidermis and/or dermis, exudate, using sterile sharp dissection, without use of anesthesia, with/without topical applications, wound assessment and instructions for ongoing care, Wound Care, The patient was instructed on importance of proper wound care consisting of pressure reduction, maintainance of moist wound environment, and regular debridement of devitilized tissue , The patient is to cleanse the wound with warm soapy water/peroxide/saline or betadine BID based on product availability , The patient is to apply Antibiotic Oint. to the wound and cover with a DSD , The patient was instructed to change dressings according to orders or PRN saturation, leaks, The patient was instructed to monitor and report any signs or symptoms of infection or any untoward reactions (85651).?Wart Treatment:?Procedure?Verrucae(s) were debrided to pin-point bleeding margins with sterile surgical blade (41675), silver nitrate chemocautery applied, recomm. Wartstick 40 percent Salicylic acid application under occlusion as directed.? * Procedure Codes:?80955 Wart Destruction, 1-14, Modifiers: XS 22069 ACTIVE WOUND CARE/20 CM OR <, Modifiers: XS * Preventive Medicine:? ??Counseling:?Discussion:?-14: Office or other outpatient visit for the evaluation and management of an established patient, which required a medically appropriate history and/or examination and MODERATE level of DECISION MAKING for: 1 OR MORE CHRONIC PROBLEM(S) THATS WORSENING, 2 STABLE CHRONIC PROBLEMS, A NEWLY DIAGNOSED PROBLEM WITH UNCERTAIN PROGNOSIS, AN ACUTE COMPLICATED INJURY WITH MULTIPLE TREATMENT OPTIONS, OR AN ACUTE PROBLEM WITH ACCOMPANYING SYSTEMIC SYMPTOMS, THAT POSE(S) A MODERATE RISK OF MORBIDITY. THIS CONDITION MAY ALSO INCLUDE RX DRUG MANAGEMENT, OR A DECISON FOR MINOR SURGERY. The visit on the day of the encounter encompassed interpreting the data and educating the patient as to the nature of their condition, treatment options available according to their individual PMH, meds, allergies, and overall health/living conditions, as well as any potential risks or complications that may occur from a failure to adhere to, and participate in, the recommended course of therapy. The discussion included a complete verbal, and/or written explanation of the examination results, any x-rays taken, the proposed diagnosis, and outline of the treatment plan. A schedule for future care needs was also explained. The patient verbalized an understanding of the instructions at this time and agreed to be an active participant in their treatment. If the patient should think of any questions or concerns after the visit, I have encouraged the patient to call the office--pt would liek to move forward with distal syme digital ht procedures right foot first then left 3rd toe--pt referred to [facility] for this once vascular clearance has been obtained from [facility].?Consult:?The Pt. was counseled on the diagnosis, treatment options, and the need for a, Vascular Consult due to pedal risk of limb/life--refer to [facility] for pre-op testing prior to scheduling for hammertoe surgery samina 3rd and right 2nd toes.? * Follow Up:?prn * Images: * Sign off status: Completed true * Provider:?Sebastian Smith DPM Date:? 024 Generated for Latha jerry/Edie/Melissa on:?09/17/2024 10:05 AM EST History and Physical Notes * HPI (History of Present Illness) Category Sub-Category Detail Notes Category Not es Toe pain Nature: throbbing , aching Location: 2nd toe , Right foot , 3rd toe , B/L feet Duration: several years Course: progressive Aggravated by: shoes, any pressure , standing/walking Treatments: bracing/splinting/pa dding and debridement Severity/Quality: moderate , severe Misc: pt awaiting appt at [facility] for evalution of circulation and vascular clearance for digital sx samina feet Wart Pt States Last PCP Visit: Date:: 08/10/2022 Examination Category Sub-Category Detail Notes Category Not es Neurological SENSORY: Neurological exa m reveals intact sensorium, pain sensation normal, vibration sensation intact, pinprick sensation is normal in the lower extremities, Pt denies, anesthesia, burning, paresthesia, tingling, B/L BABINSKI REFLEX: absent Dermatologic SKIN FINDINGS: Skin shows sign( s) of keratosis with dried blood distal t2 and t6 ULCER: LOCATION--plantar t6 , SIZE, 5mm X 4mm X 1-2mm, BASE, fibrogranular, RIM, hyperkeratotic, UNDERMINING, absent, TRACKING, Full thickness breakdown of skin,NECROTIC TISSUE, loosely-adherent,yellow slough DRAINAGE, blood, mild, MALODOR, absent, CALOR, absent, ERYTHEMA, absent, PAIN ON PALPATION, present VERRUCA: Reveals a Single , m ulti-loculated , mosaic-patterned, round, raised, flat-topped, petechial bleeding papule(s), with cauliflower appearance and interruption of skin lines, pain to lateral compression, and size estimated at __1__ mm diameter , plantar Heel , LEFT Orthopedic GAIT ABNORMALITY: pronated, abducted, B/L DIGITAL DEFORMITIES: Digital contracture --rigid t2, t6, t7 dipj's MUSCLE STRENGTH: 5/5 all groups in a symmetrical fashion , B/L General Examination GENERAL APPEARANCE: pleasant , alert, well nourished, well developed, well hydrated, with good attention to hygene/body habitus, and in no acute distress ORIENTED: person,place, and ti me Vascular DP PULSES (B): 0/4, B/L PT PULSES (B): 0/4, B/L CAPILLARY FILL TIME: 3 secs. per digit, B/L TEMPERTURE GRADIENT (C): warm to cool, p roximal to distal, B/L TROPHIC CONDITION-TEXTURE/ELASTICITY/TURGOR/HAIR GROWTH (B): normal, B/L EDEMA (C): 1/4 , Right , Ankle( s) TELANGECTASIA: absent VARICOSITIES: absent PIGMENTATION: normal, B/L Nails NAILS are: elongated,overgr own,dystrophic,greater than 3mm thick,discolored and friable with crumbly malodorous subungual debris, with pain on palpation , TA , T2 , T3 , 1-5 Right foot , There is evidence of pain on palpation, and an area of subungual hemorrhagic fluid with a pre-operative size measuring approximately ( 8 ) mm square , TA with onycholysis noted
--- OUTSIDE RECORDS SUMMARY | 2024-09-17 10:05 | XMS_ITS ---
Author Organization [facility] Address [address] [place] [address] Care Team Providers Care Aprn Name Role Phone Romain Glez Primary Care Provider Unav ailable Sebastian Smith [phone] REASON FOR VISIT Vascular Clearance Encounters Encounter Location Date Provider Diagnosis [facility] [address] [place] [address] 07/27/2023 Sebastian Smith Plan Of Treatment No Information Progress Notes * Zander GRIDER LDOB: [birth year] (87 yo M)Acc No.[id number]:07/27/2023 Patient:?aZnder Grider :1935???Age:87 Y???Sex:Male Address:[address] [place] [address], [address] * true * Date:? Generated for Printi ng/Faserenag/eTransmitting on:?09/17/2024 10:05 AM EST
--- OUTSIDE RECORDS SUMMARY | 2024-09-17 10:05 | XMS_ITS ---
Author Organization [facility] Address [address] [place] [address] Care Team Providers Care Bus Driver Name Role Phone Romain Glez Primary Care Provider Unav ailSebastian Ochoa [phone] REASON FOR VISIT r/s taken off cx list Encounters Encounter Location Date Provider Diagnosis [address] [address] 10/05/2023 Sebastian Smtih Plan Of Treatment No Information Progress Notes * Zander GRIDER LDOB: [birth year] (89 yo M)Acc No.[id number]:10/05/2023 Progress Notes Patient:?Zander GRIDER Provider:?Sebastian Smith DPM :1935???Age:88 Y???Sex:Male Chad e:10/05/2023 Address:[address] [place], [place] [id number] Pcp:FRIDA Le Subjective: * Chief Complaints: * ???1. R/s taken off cx list. * Medical History:? Objective: * Vitals:? Assessment: Plan: * Treatment: * Images: * The named appointment provid er may or may not be the originator of this progress note, and it is not deemed complete until electronically signed by the appointment provider. Sign off status: Pending * Provider:?Sebastian Smith DPM Date:? 024 Generated for Printi ng/Faxing/eTransmitting on:?09/17/2024 10:05 AM EST
--- OUTSIDE RECORDS SUMMARY | 2024-09-17 10:05 | XMS_ITS | Patient Health Record ---
[facility] Organization [facility] Address [address] [place] [address] Care Team Providers Care Adjunct Professor Of U.S. History Name Role Phone Romain Glez Primary Care Provider Serge angel LuisSebastian Unavailable [phone] Allergies Allergen (clinical drug ingredient) Drug/Non Drug Allergy documented on EMR Reaction Allergy Type Onset Date Status ibuprofen Advil heart meds Drug Allergy Active Aleve heart meds Drug Allergy Active aspirin Aspirin on warfarin Drug Allergy Activ e Motrin heart meds Drug Allergy Active Seasonal IC Unknown Drug Allergy Activ e Penicillin Unknown Drug Allergy Active Reason For Referral No Information Medications Medication SIG (Take, Route, Frequency, Duration) [...] Are you an other tobacco user? No Problems Problem Type SNOMED Code ICD Code Onset Dates Problem Status W/U Status Risk Notes Problem Unspecified atherosclerosis of [place] arteries of extremities, bilateral legs (I70.203) Active confirmed Problem Non-pressure chronic ulcer of other part of right foot limited to breakdown of skin (L97.511) Active confirmed Problem Acquired hammer toe of right foot (86468335124 ) Other hammer toe(s) (acquired), right foot (M20.41) Active confirmed Problem Acquired hammer toe of left foot (43106408282 19103) Other hammer toe(s) (acquired), left foot (M20.42) Active confirmed Problem Acquired hammer toe of right foot (69993064568 ) Other hammer toe(s) (acquired), right foot (M20.41) Active confirmed Problem Acquired hammer toe of left foot (11182853356 19103) Other hammer toe(s) (acquired), left foot (M20.42) Active confirmed Plan Of Treatment Pending Test Test Name Order Date X ray : Foot, left 3V 01/31/2020 X ray : Foot, left 3V 02/13/2020 X ray : Foot, left 3V 02/25/2020 X ray : Foot, left 3V 04/03/2020 X ray : Foot, left 3V 06/27/2019 X ray : Foot, left 3V 07/27/2023 X ray : Foot, right 3V 07/27/2023 X ray : Foot, right 3V 06/27/2019 34768- Debride <25 sq cm 08/18/2023 [id number] SKIN/TISSUE 01/21/2020 17802-BDVWVMPR OF HEMATOMA/FLUID 023 Insurance Providers Payer Name Payer Address Payer Phone Subscriber Number Group Number Insured Name Patient Relationship to Insured Coverage Start Date Coverage End Date Medicare [facility] [employer] [address] [facility] [address] [id number] Zander Espinal Self - patient is the insured [facility] [address] [place], [place] [id number] [phone] [id number] Zander Espinal Self - patient is the insured Medical (General) History Medical History History ICD Code Heart Disease Arthritis Back,Hip,and Knee pain CAD (Cholesterol) Cataracts Chicken pox Heart disease Hiatal hernia High blood pressure Numbness Poor circulation sinusitis Vascular phlebitis (clots) Measles Mumps Joint implants/screws Surgical History Surgery Date(Month/Year) Pacemaker 11/25/08 Heart Ablations 2006,2007 HT L2nd, Skin Ulcer L 02/07/2020 cataracts
== END 2024-09-17 10:07 | disposition home or self-care (01) ==
PROVIDERS: PCP Nurse Practitioner Family; Visit Provider Internal Medicine Cardiovascular Disease
DX: R60.0 Localized edema (principal); I50.32 Chronic diastolic (congestive) heart failure; I48.91 Unspecified atrial fibrillation
CPT/HCPCS: 99214

== ENCOUNTER → 2024-09-17 09:26 | Outpatient (BNVA) | payer MEDICARE, OTHER, SELFPAY | PROVIDERS: PCP Nurse Practitioner Family; Visit Provider Internal Medicine Cardiovascular Disease | DX: I48.91 Unspecified atrial fibrillation (principal); I50.32 Chronic diastolic (congestive) heart failure; R60.0 Localized edema | CPT/HCPCS: 99212 ==

== ENCOUNTER 2024-09-20 09:53 | Outpatient (AMB) | payer MEDICARE, OTHER, SELFPAY ==
--- NOTE | 2024-09-20 09:55 | MHC.OFFVIS ---
Intake Visit Reasons: 9M PVR Intake Note: Patient presents today for follow up on: PVR Meds: tamsulosin and finasteride Allergies to Antibiotic: none Blood Thinner: Warfarin Post Void Residual: 35ml's Scale Balancer Required: No Accompanied by: Daughter Allergies No Known Allergies [No Known Allergies*] Allergy (Verified 09/20/24 10:15) Medication List - Last Reconciled 09/20/24 by Chetna Armstrong MD atorvastatin 20 mg PO BEDTIME finasteride (Proscar) 5 mg PO DAILY 90 days furosemide (Lasix) 40 mg PO BID magnesium 200 mg PO DAILY metoprolol succinate ER (Toprol XL) 50 mg PO DAILY spironolactone 25 mg PO DAILY tamsulosin 0.4 mg PO BEDTIME warfarin 2 mg See Protocol PO DAILY@1800 HPI Comments Details: 09/20/24-Zander is here for FU- 89 year old followed for BPH, obstructive voiding symptoms, workup for gross hematuria, the patient is on blood thinner Coumadin. CT imaging - 2 mm left kidney stone, the patient was started on Proscar, 09/22/2023. Zander is here with his daughter, states he was recently hospitalized for CHF, he has been started on Lasix 20 mg bid. Denies difficulty with voiding, denies UTI symptoms. 01/06/23--PSA -6.92. FU in 6months, will check PSA. Patient is not sure if he has been taking the tamsulosin. 12/22/2023--Zander is here for follow-up. 88-year-old male followed for BPH, obstructive voiding symptoms, workup for gross hematuria, the patient is on blood thinner Coumadin. CT imaging - 2 mm left kidney stone, the patient was last seen in the office 09/22/2023 and was started on Proscar. Heron is here with his daughter and states he has been doing well on the medication voiding without difficulty. Bladder scan PVR is 15 mL. I have discussed that if the stone in the left kidney moves he may get flank pain and see blood in the urine into contact the office. 09/22/23- Zander is here for Follow up, he is being followed for BPH, incomplete bladder emptying and hematuria, He has a PMH of atrial fibrillation, hyperlipidemia, hypertension, osteoarthritis, and has a pacemaker. He had office cysto on 07/20/23, no suspicious bladder lesions. Bladder scan PVR 117 mL. Plan proscar 5 mg daily ordered. 07/20/23-- CYSTOSCOPY - mild Trabeculation, bruising noted to bladder mucosa, multifocal areas, may represent changes from prior catheter, prostatic urethra non obstructive, bulbous urethra WNL, no suspicious bladder lesions visualized. 07/14/23- seen by JATINDER Zander is a pleasant 87-year-old male patient of Dr. Vizcarra who was accompanied by his daughter at today's office visit. He has a PMH of atrial fibrillation, hyperlipidemia, hypertension, osteoarthritis, and has a pacemaker. He presents to the office today for follow-up of his gross hematuria. In discussion with the patient today reports having seeked emergency room care approximately 3 weeks ago for gross hematuria at which time a CT was ordered and performed. These results reviewed with the patient his daughter today. 2 mm nonobstructing left renal calculus. No hydronephrosis. Irregular shaped hyperdense focus which appears to be within the lumen of the bladder which measures approximately 2.1 x 1.0 x 2.2 cm. This is a nonspecific finding. This may represent a blood clot or bladder mass is also within the differential. Of note, patient was seen in the office approximately 6 months ago for an elevated PSA at which time recommendations were made for redraw of PSA as well as retroperitoneal ultrasound however it does not appear patient to have completed recommendations. Discussed and stressed the importance of following up for continuity of care as well as overall health and well-being. 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 He also reports a previous smoking history however quit over 40 years ago. He reports having smoked for approximately 15-20 years no more than half a pack per day. Imaging: CTAP 1. 2 mm nonobstructing left renal calculus. No hydronephrosis. 2. Irregularly-shaped hyperdense focus which appears to be within the lumen of the bladder which measures approximately 2.1 x 1.0 x 2.2 cm. PSA results--- 06/28--1.3 04/29--3.2 10/28--5.7 [facility] Medical History Tachy-garrison syndrome Hypertension, essential, benign Hyperlipidemia Atrial fibrillation Osteoarthritis Pacemaker (~2008) Current use of anticoagulant therapy Surgical History History of colonoscopy History of eye surgery History of appendectomy Status post left foot surgery (~02/2020) Amputated toe of left foot History of cardiac pacemaker History of cardiac radiofrequency ablation (RFA) Family History Father No problems noted. Mother No problems noted. Social History Household Members: Spouse Housing: House Do you presently have visiting nurse or other home services: No Alcohol intake: current Alcohol intake frequency: a few times a week Alcohol type: beer Patient Tobacco Use Status: Former Tobacco user Years Smoked: 15 e-Cigarette/Vaping Use: Never Used Advance Directives Date on File: 09/27/22 service: No Current occupational status: retired Hearing needs: No Vision needs: Yes (Glasses) Review of Systems Const All systems reviewed & are unremarkable except as noted in HPI and below Reports no additional complaints Eyes Reports no additional complaints ENT Reports no additional complaints Card Reports no additional complaints Resp Reports no additional complaints GI Reports no additional complaints Reports as per HPI Musc Reports no additional complaints Skin/Breast Reports system reviewed and no additional complaints, except as documented Neuro Reports no additional complaints Psych Reports no additional complaints Endo Reports no additional complaints Ike/Lymph Reports no additional complaints Aller/Immun Reports no additional complaints Office Procedures Post Void Residual Post Residual Void Post Void Residual (PVR): 35 26946-Kmef Void Residual by ultrasound Results AMB Urinalysis, Automated UA Leukoctes 0 Paulino/uL Last Edit by Suad Cohen on 09/20/24 10:16 UA Nitrite Last Edit by Opti-Logichany on 09/20/24 10:16 UA Urobilinogen 0.2 mg/dL Last Edit by Meridiumcarolyn Cohen on 09/20/24 10:16 UA Protein 0 mg/dL Last Edit by Meridiumcarolyn Cohen on 09/20/24 10:16 UA pH 6.0 Last Edit by Meridiumcarolyn Cohen on 09/20/24 10:16 UA Blood 0 Robert/uL Last Edit by Meridiumcarolyn Cohen on 09/20/24 10:16 UA Specific [place] 1.015 Last Edit by Suad Sultanahany on 09/20/24 10:16 UA Ketone Last Edit by Deoninicarolyn Sultanahany on 09/20/24 10:16 UA Bilirubin 0 mg/dL Last Edit by Rimmacarolyn Sultanahany on 09/20/24 10:16 UA Glucose 0 mg/dL Last Edit by Suad Kayyhany on 09/20/24 10:16 Results Reviewed Results Reviewed: Laboratory Last Values Urine pH (Auto) 6.0 09/20/24 10:15 Specific [place] (Auto) 1.015 09/20/24 10:15 Urine Protein (Auto) 0 mg/dL 09/20/24 10:15 Glucose (UA)(Auto) 0 mg/dL 09/20/24 10:15 Urine Blood (Auto) 0 Robert/uL 09/20/24 10:15 Urine Bilirubin (Auto) 0 mg/dL 09/20/24 10:15 Urine Urobilinogen (Auto) 0.2 mg/dL 09/20/24 10:15 Leukocyte Esterase (Auto) 0 Paulino/uL 09/20/24 10:15 Assessment & Plan Assessment & Plan (1) Elevated PSA: Code(s): R97.20 - Elevated prostate specific antigen [PSA] Category: Medical (2) Enlarged prostate: Code(s): N40.0 - Benign prostatic hyperplasia without lower urinary tract symptoms Category: Medical Plan Cont proscar, tamsulosin refilled. Orders: Orders AMB Post Void Residual by ultrasound Today R39.12 - Poor urinary stream PSA,Total (Free>4and<10) Today N40.0 - Benign prostatic hyperplasia without lower urinary tract symptoms, R97.20 - Elevated prostate specific antigen [PSA] AMB Urinalysis Automated Today Z13.9 - Encounter for screening, unspecified Medications: Refilled tamsulosin 0.4 mg PO BEDTIME 90 caps 3RF Coding Level of Care Code Est Pt Level 3 (42206) Complex EM visit Add On G2211 Diagnoses Elevated PSA R97.20 Enlarged prostate N40.0 CPT Codes Post Residual Void - PVR CPT Code: 23698-Xsqs Void Residual by ultrasound ([id number])
--- OUTSIDE RECORDS SUMMARY | 2024-09-20 10:28 | XMS_ITS ---
Author Organization [facility] Address [address] [place] [address] Care Team Providers Care Document Control Coordinator Name Role Phone Romain Glez Primary Care Provider Unav ailSebastian Ochoa [phone] REASON FOR VISIT r/s taken off cx list Encounters Encounter Location Date Provider Diagnosis [address] [address] 10/05/2023 Sebastian Smith Plan Of Treatment No Information Progress Notes * Zander GRIDER LDOB: [birth year] (89 yo M)Acc No.[id number]:10/05/2023 Progress Notes Patient:?Zander GRIDER Provider:?Sebastian Smith DPM :1935???Age:88 Y???Sex:Male Chad e:10/05/2023 Address:[address] [place], [place] [address] Pcp:FRIDA Le Subjective: * Chief Complaints: * [...] DPM Date:? 024 Generated for Printi ng/Faxing/eTransmitting on:?09/20/2024 10:28 AM EST
--- OUTSIDE RECORDS SUMMARY | 2024-09-20 10:28 | XMS_ITS ---
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 Wartstick 40 [...] symptoms of infection or any untoward reactions (54972) Progress Notes * MARNIZander TEMPLETON LDOB: [birth year] (87 yo M)Acc No.[id number]:08/18/2023 Progress Notes Patient:?Zander Espinal Provider:?Sebastian Smith DPM :1935???Age:87 Y???Sex:Male Chad e:08/18/2023 Address:[address] [place] [id number] Pcp:FRIDA Le Subjective: * Chief Complaints: * ??? Last PCP Visit: 07/20/23 Wart(s) * HPI: ???Toe pain:?Nature:?throbbing , aching.?Location:?2nd toe , Right foot , 3rd toe , B/L feet.?Duration:?several years.?Course:?progressive.?Aggrevated by:?shoes, any pressure , standing/walking.?Treatments:?bracing/splinting/padding and debridement.?Severity/Quality:?moderate , severe.?Misc:?pt awaiting appt at [facility] for evalution of circulation and vascular clearance [...] symptoms of infection or any untoward reactions (12271).?Wart Treatment:?Procedure?Verrucae(s) were debrided to pin-point bleeding margins with sterile surgical blade (59418), silver nitrate chemocautery applied, recomm. Wartstick 40 percent Salicylic acid application under occlusion as directed.? * Procedure Codes:?92277 Wart Destruction, 1-14, Modifiers: XS 53889 ACTIVE WOUND CARE/20 CM OR <, Modifiers: [...] first then left 3rd toe--pt referred to [facility] for this once vascular clearance has been obtained from [facility].?Consult:?The Pt. was counseled on the diagnosis, treatment options, and the need for a, Vascular Consult due to pedal risk of limb/life--refer to [facility] for pre-op testing prior to scheduling for hammertoe surgery samina 3rd and right 2nd toes.? * Follow Up:?prn * Images: * Sign off status: Completed true * Provider:?Sebastian Smith DPM Date:? 024 Generated for Latha jerry/Edie/Melissa on:?09/20/2024 10:28 AM EST History and Physical Notes * HPI (History of Present Illness) Category Sub-Category Detail Notes Category Not es Toe pain Nature: throbbing , aching Location: 2nd toe , Right foot , 3rd toe , B/L feet Duration: several years Course: progressive Aggravated by: shoes, any pressure , standing/walking Treatments: bracing/splinting/pa dding and debridement Severity/Quality: moderate , severe Misc: pt awaiting appt at [facility] for evalution of circulation and vascular clearance [...]
--- OUTSIDE RECORDS SUMMARY | 2024-09-20 10:28 | XMS_ITS | Patient Health Record ---
Author Organization [facility] Address [address] [place] [address] Care Team Providers Care Screw Machine Operator Name Role Phone Romain Glez Primary Care Provider Serge angel LuisSebastian Unavailable [phone] Allergies Allergen (clinical drug ingredient) Drug/Non Drug [...] Status Risk Notes Problem Unspecified atherosclerosis of [place] arteries of extremities, bilateral legs (I70.203) Active confirmed Problem Non-pressure chronic ulcer of other part of right foot limited to breakdown of skin (L97.511) Active confirmed Problem Acquired hammer toe of right foot (94859336979 ) Other hammer toe(s) (acquired), right foot (M20.41) Active confirmed Problem Acquired hammer toe of left foot (35091503511 19103) Other hammer toe(s) (acquired), left foot (M20.42) Active confirmed Problem Acquired hammer toe of right foot (99137255361 ) Other hammer toe(s) (acquired), right foot (M20.41) Active confirmed Problem Acquired hammer toe of left foot (89454499023 19103) Other hammer toe(s) (acquired), left foot [...] X ray : Foot, right 3V 06/27/2019 82474- Debride <25 sq cm 08/18/2023 39582-[id number] SKIN/TISSUE 01/21/2020 50652-BFOZYSRE OF HEMATOMA/FLUID 023 Insurance Providers Payer Name Payer Address Payer Phone Subscriber Number Group Number Insured Name Patient Relationship to Insured Coverage Start Date Coverage End Date Medicare National [facility] [employer] [address] [place] [address] [phone] [id number] Zander Espinal Self - patient is the insured [facility] [address] [place], [place] [address] [phone] [id number] Zander Espinal Self - patient is [...]
--- OUTSIDE RECORDS SUMMARY | 2024-09-20 10:29 | XMS_ITS ---
Author Organization [facility] Address [address] [place] [address] Care Team Providers Care Staff Climate Scientist Name Role Phone Romain Glez Primary Care Provider Unav ailable Sebastian Smith [phone] REASON FOR VISIT Vascular Clearance Encounters Encounter Location Date Provider Diagnosis [facility] [address] [place] [address] 07/27/2023 Sebastian Smith Plan Of Treatment No Information Progress Notes * Zander GRIDER LDOB: [birth year] (87 yo M)Acc No.[id number]:07/27/2023 Patient:?Zander Grider :1935???Age:87 Y???Sex:Male Address:[address] [place] [address], [address] * true * Date:? Generated for Printi ng/Faserenag/eTransmitting on:?09/20/2024 10:28 AM EST
== END 2024-09-20 10:38 | disposition home or self-care (01) ==
PROVIDERS: PCP Nurse Practitioner Family; Visit Provider Urology
DX: R97.20 Elevated prostate specific antigen [PSA] (principal); N40.0 Benign prostatic hyperplasia without lower urinary tract symptoms; Z13.9 Encounter for screening, unspecified
CPT/HCPCS: 99213; G2211

== ENCOUNTER → 2024-09-20 09:53 | Outpatient (BNVA) | payer MEDICARE, OTHER, SELFPAY | PROVIDERS: PCP Nurse Practitioner Family; Visit Provider Urology | DX: N40.0 Benign prostatic hyperplasia without lower urinary tract symptoms (principal); R97.20 Elevated prostate specific antigen [PSA] | CPT/HCPCS: 51798; 81003; 99212 ==

== ENCOUNTER 2024-10-05 14:58 | Outpatient (AMB) | payer MEDICARE, OTHER, SELFPAY ==
[2024-10-05 15:07] LABS: Prothrombin Time Whole Bld POC 45.6 sec (11.1-13.5); ~PT, ~INR - Anti Coag Clinic 3.8 (0.9-1.1)
--- NOTE | 2024-10-05 15:11 | MHC.OFFVISCO ---
Intake Intake Visit Reasons: Anticoagulation Allergies No Known Allergies [No Known Allergies*] Allergy (Verified 10/05/24 15:02) Medication List - Last Reconciled 10/05/24 by Lindsay Irwin RN atorvastatin 20 mg PO BEDTIME finasteride (Proscar) 5 mg PO DAILY 90 days furosemide (Lasix) 40 mg PO BID magnesium 200 mg PO DAILY metoprolol succinate ER (Toprol XL) 50 mg PO DAILY spironolactone 25 mg PO DAILY tamsulosin 0.4 mg PO BEDTIME warfarin 2 mg See Protocol PO DAILY@1800 Nursing Note Pt to [facility] for his first in clinic appointment since June. States he has had 3 hospitalizations since Jun. One for gross hematuria in Jun 2024 and one for rapid afib/CHF in Jul and again in Aug for CHF. INR: 3.8 out of therapeutic range of 2-3 Medications and supplements reviewed No changes in health, diet, medications, or supplements, Denies any signs and symptoms of bleeding or bruising or clotting. Bleeding, bruising, clotting discussed Nutritional guidance given to have a serving of greens today. Pt states he will have cooked spinach. Dose: decrease today's dose to 2mg (4mg) then to resume usual dose of 2mg X 4 days and 4mg X 3 days (Tue, Tue & Tue) F/U INR: 2 weeks Patient verbalizes understanding of instructions given Anti-Coag Initial Assessment Social Hx Patient Tobacco Use Status: Former Tobacco user alcohol intake: current Alcohol intake frequency: a few times a week Coding Level of Care Code Est Patient Level 1 Diagnoses Current use of anticoagulant therapy Z79.01 Results AMB INR Fingerstick AMB INR Fingerstick 3.8 Last Edit by Lindsay Irwin RN on 10/05/24 15:07 interface delay Assessment & Plan Assessment & Plan (1) Current use of anticoagulant therapy: Code(s): Z79.01 - long-term (current) use of 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s Category: Medical
--- OUTSIDE RECORDS SUMMARY | 2024-10-05 17:09 | XMS_ITS | Patient Health Record ---
Author Organization [facility] Billing Info Address [address] [place] [address] Care Team Providers Care Hot Pond Operator Name Role Phone ALIYA STRICKLAND Unavailable [phone] Reason For Referral No Information Medications Medication SIG (Take, Route, Frequency, Duration) Notes Start Date End Date Status Warfarin Sodium 2 MG 1 tablet Orally Fiv e times a week/ 8 MG twice a week for 90 days Active Metoprolol Succinate ER 25 MG 1 tablet Orally Once a day for 90 days Active Triamterene-HCTZ 75-50 MG 1 tablet in th e morning Orally Once a day for 90 days Active Atorvastatin Calcium 20 MG 1 tablet Oral ly Once a day for 90 days Active Immunizations Vaccine Route Administration Date Status Comme nts FLU (Past vaccine of unknown type) Unknown 05/11/2016 A dministered FLU (Past vaccine of unknown type) Unknown 07/12/2017 A dministered Social History Tobacco Use: Social History Observation Description Date Details (start date - stop date) Former Smoker NA - NA Tobacco Status: Question Answer Notes Patient is a former smoker Problems Problem Type SNOMED Code ICD Code Onset Dates Problem Status W/U Status Risk Notes Problem 205849625 Presence of card iac pacemaker (Z95.0) Active confirmed Problem 75631590 Venous insuffici ency (I87.2) Active confirmed Problem 960297500 BMI 29.0-29.9,ad ult (Z68.29) Active confirmed Problem 203999016 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 t use of 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 (Z79.01) Active confirmed Problem 237976512 Atrial fibrillat ion and flutter (I48.91) Active confirmed Problem 15976781 SSS (sick sinus syndrome) (I49.5) Active confirmed Problem 763580991 High risk medica tion use (Z79.899) Active confirmed Problem 229014315 Pure hypercholesterolemia (E78.00) Active confirmed Plan Of Treatment No Information Insurance Providers Payer Name Payer Address Payer Phone Subscriber Number Group Number Insured Name Patient Relationship to Insured Coverage Start Date Coverage End Date [place]ARE [place] PART B [address] [facility] [id number] Zander Celestin Self - patient is the insured 1 0 [employer] PRIOR TO [id number] [address] [place], [place] [id number] Zander Celestin Self - patient is the insured 1 0 Medical (General) History Medical History History ICD Code Atrial fibrillation Atrial flutter High risk medications Sick sinus syndrome or Bradycardia s/p Pacemaker Venous insufficiency Encounter for long-term (current) use of 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s Surgical History Surgery Date(Month/Year) Cardiac pacemaker 2008 Ablasion
--- OUTSIDE RECORDS SUMMARY | 2024-10-05 17:09 | XMS_ITS ---
Author Organization [facility] Address [address] [place] [address] Care Team Providers Care Gunstock Spray Unit Feeder Name Role Phone Romain Glez Primary Care Provider Unav ailSebastian Ochoa [phone] REASON FOR VISIT r/s taken off cx list Encounters Encounter Location Date Provider Diagnosis [address] [address] 10/05/2023 Sebastian Smith Plan Of Treatment No Information Progress Notes * Zander GRIDER LDOB: [birth year] (89 yo M)Acc No.[id number]:10/05/2023 Progress Notes Patient:?Zander GRIDER Provider:?Sebastian Smith DPM :1935???Age:88 Y???Sex:Male Chad e:10/05/2023 Address:[address] [place], [place] [address] Pcp:FRIDA Le Subjective: * Chief Complaints: * [...] DPM Date:? 024 Generated for Printi ng/Faxing/eTransmitting on:?10/05/2024 05:08 PM EST
--- OUTSIDE RECORDS SUMMARY | 2024-10-05 17:09 | XMS_ITS | Patient Health Record ---
[facility] Address [address] [place] [address] Care Team Providers Care Supervisor Pigment Making Name Role Phone Romain Glez Primary Care Provider Serge angel LuisSebastian Unavailable [phone] Allergies Allergen (clinical drug ingredient) Drug/Non Drug [...] Status Risk Notes Problem Unspecified atherosclerosis of [place] arteries of extremities, bilateral legs (I70.203) Active confirmed Problem Non-pressure chronic ulcer of other part of right foot limited to breakdown of skin (L97.511) Active confirmed Problem Acquired hammer toe of right foot (46659313287 ) Other hammer toe(s) (acquired), right foot (M20.41) Active confirmed Problem Acquired hammer toe of left foot (86508236181 19103) Other hammer toe(s) (acquired), left foot (M20.42) Active confirmed Problem Acquired hammer toe of right foot (36850991415 ) Other hammer toe(s) (acquired), right foot (M20.41) Active confirmed Problem Acquired hammer toe of left foot (35472241975 19103) Other hammer toe(s) (acquired), left foot [...] X ray : Foot, right 3V 06/27/2019 80836- Debride <25 sq cm 08/18/2023 88007-GVRYPCW SKIN/TISSUE 01/21/2020 90343-DHRKVZYR OF HEMATOMA/FLUID 023 Insurance Providers Payer Name Payer Address Payer Phone Subscriber Number Group Number Insured Name Patient Relationship to Insured Coverage Start Date Coverage End Date Medicare National [facility] [employer] [address] [place] [address] [id number] Zander Espinal Self - patient is the insured [facility]) [address] [place], [place] [id number] Zander Espinal Self - patient is [...]
--- OUTSIDE RECORDS SUMMARY | 2024-10-05 17:09 | XMS_ITS ---
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 Wartstick 40 [...] symptoms of infection or any untoward reactions (74485) Progress Notes * MARNIZander TEMPLETON LDOB: [birth year] (87 yo M)Acc No.[id number]:08/18/2023 Progress Notes Patient:?Zander Espinal Provider:?Sebastian Smith DPM :1935???Age:87 Y???Sex:Male Chad e:08/18/2023 Address:[address] [place] [id number] Pcp:FRIDA Le Subjective: * Chief Complaints: * ??? Last PCP Visit: 07/20/23 Wart(s) * HPI: ???Toe pain:?Nature:?throbbing , aching.?Location:?2nd toe , Right foot , 3rd toe , B/L feet.?Duration:?several years.?Course:?progressive.?Aggrevated by:?shoes, any pressure , standing/walking.?Treatments:?bracing/splinting/padding and debridement.?Severity/Quality:?moderate , severe.?Misc:?pt awaiting appt at [facility] for evalution of circulation and vascular clearance [...] symptoms of infection or any untoward reactions (61348).?Wart Treatment:?Procedure?Verrucae(s) were debrided to pin-point bleeding margins with sterile surgical blade (21411), silver nitrate chemocautery applied, recomm. Wartstick 40 percent Salicylic acid application under occlusion as directed.? * Procedure Codes:?37241 Wart Destruction, 1-14, Modifiers: XS 42144 ACTIVE WOUND CARE/20 CM OR <, Modifiers: [...] first then left 3rd toe--pt referred to [facility] for this once vascular clearance has been obtained from [facility].?Consult:?The Pt. was counseled on the diagnosis, treatment options, and the need for a, Vascular Consult due to pedal risk of limb/life--refer to [facility] for pre-op testing prior to scheduling for hammertoe surgery samina 3rd and right 2nd toes.? * Follow Up:?prn * Images: * Sign off status: Completed true * Provider:?Sebastian Smith DPM Date:? 024 Generated for Latha jerry/Edie/Melissa on:?10/05/2024 05:08 PM EST History and Physical Notes * HPI (History of Present Illness) Category Sub-Category Detail Notes Category Not es Toe pain Nature: throbbing , aching Location: 2nd toe , Right foot , 3rd toe , B/L feet Duration: several years Course: progressive Aggravated by: shoes, any pressure , standing/walking Treatments: bracing/splinting/pa dding and debridement Severity/Quality: moderate , severe Misc: pt awaiting appt at [facility] for evalution of circulation and vascular clearance [...]
--- OUTSIDE RECORDS SUMMARY | 2024-10-05 17:09 | XMS_ITS ---
Author Organization [facility] Address [address] [place] [address] Care Team Providers Care Loss Prevention Guard Name Role Phone Romain Glez Primary Care Provider Unav ailable Sebastian Smith [phone] REASON FOR VISIT Vascular Clearance Encounters Encounter Location Date Provider Diagnosis [facility] [address] [place] [address] 07/27/2023 Sebastian Smith Plan Of Treatment No Information Progress Notes * Zander GRIDER LDOB: [birth year] (87 yo M)Acc No.[id number]:07/27/2023 Patient:?Zander Grider :1935???Age:87 Y???Sex:Male Address:[address] [place] [address], [address] * true * Date:? Generated for Printi ng/Faserenag/eTransmitting on:?10/05/2024 05:09 PM EST
== END 2024-10-05 15:23 | disposition home or self-care (01) ==
LOC: HO.ACS 14:58
PROVIDERS: PCP Nurse Practitioner Family; Visit Provider Internal Medicine
DX: Z79.01 Long term (current) use of 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s (principal)

== ENCOUNTER → 2024-10-05 14:58 | Outpatient (BNVA) | payer MEDICARE, OTHER, SELFPAY | PROVIDERS: PCP Nurse Practitioner Family; Visit Provider Internal Medicine | DX: I48.20 Chronic atrial fibrillation, unspecified (principal); Z79.01 Long term (current) use of 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s; Z51.81 Encounter for therapeutic drug level monitoring | CPT/HCPCS: 85610; 99211 ==

== ENCOUNTER 2024-10-19 08:08 | Outpatient (AMB) | payer MEDICARE, OTHER, SELFPAY ==
--- OUTSIDE RECORDS SUMMARY | 2024-10-19 08:14 | XMS_ITS ---
Author Organization [facility] Address [address] [place] [address] Care Team Providers Care Bi Technical Lead Name Role Phone Romain Glez Primary Care Provider Unav ailSebastian Ochoa [phone] REASON FOR VISIT r/s taken off cx list Encounters Encounter Location Date Provider Diagnosis [address] [address] 10/05/2023 Sebastian Smith Plan Of Treatment No Information Progress Notes * Zander GRIDER LDOB: [birth year] (89 yo M)Acc No.[id number]:10/05/2023 Progress Notes Patient:?Zander GRIDER Provider:?Sebastian Smith DPM :1935???Age:88 Y???Sex:Male Chad e:10/05/2023 Address:[address] [place], [place] [address] Pcp:FRIDA Le Subjective: * Chief Complaints: * [...] DPM Date:? 024 Generated for Printi ng/Faxing/eTransmitting on:?10/19/2024 08:14 AM EDT
--- OUTSIDE RECORDS SUMMARY | 2024-10-19 08:15 | XMS_ITS ---
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 Wartstick 40 [...] symptoms of infection or any untoward reactions (89240) Progress Notes * MARNIZander TEMPLETON LDOB: [birth year] (87 yo M)Acc No.[id number]:08/18/2023 Progress Notes Patient:?Zander Espinal Provider:?Sebastian Smith DPM :1935???Age:87 Y???Sex:Male Chad e:08/18/2023 Address:[address] [place] [address] Pcp:FRIDA Le Subjective: * Chief Complaints: * ??? Last PCP Visit: 07/20/23 Wart(s) * HPI: ???Toe pain:?Nature:?throbbing , aching.?Location:?2nd toe , Right foot , 3rd toe , B/L feet.?Duration:?several years.?Course:?progressive.?Aggrevated by:?shoes, any pressure , standing/walking.?Treatments:?bracing/splinting/padding and debridement.?Severity/Quality:?moderate , severe.?Misc:?pt awaiting appt at [facility] for evalution of circulation and vascular clearance [...] symptoms of infection or any untoward reactions (86743).?Wart Treatment:?Procedure?Verrucae(s) were debrided to pin-point bleeding margins with sterile surgical blade (74856), silver nitrate chemocautery applied, recomm. Wartstick 40 percent Salicylic acid application under occlusion as directed.? * Procedure Codes:?19132 Wart Destruction, 1-14, Modifiers: XS 74845 ACTIVE WOUND CARE/20 CM OR <, Modifiers: [...] first then left 3rd toe--pt referred to [facility] for this once vascular clearance has been obtained from [facility].?Consult:?The Pt. was counseled on the diagnosis, treatment options, and the need for a, Vascular Consult due to pedal risk of limb/life--refer to [facility] for pre-op testing prior to scheduling for hammertoe surgery samina 3rd and right 2nd toes.? * Follow Up:?prn * Images: * Sign off status: Completed true * Provider:?Sebastian Smith DPM Date:? 024 Generated for Latha jerry/Edie/Melissa on:?10/19/2024 08:14 AM EDT History and Physical Notes * HPI (History of Present Illness) Category Sub-Category Detail Notes Category Not es Toe pain Nature: throbbing , aching Location: 2nd toe , Right foot , 3rd toe , B/L feet Duration: several years Course: progressive Aggravated by: shoes, any pressure , standing/walking Treatments: bracing/splinting/pa dding and debridement Severity/Quality: moderate , severe Misc: pt awaiting appt at [facility] for evalution of circulation and vascular clearance [...]
--- OUTSIDE RECORDS SUMMARY | 2024-10-19 08:15 | XMS_ITS | Patient Health Record ---
[facility] Address [address] [place] [address] Care Team Providers Care Freelance Writer Name Role Phone Romain Glez Primary Care Provider Serge angel LuisSebastian Unavailable [phone] Allergies Allergen (clinical drug ingredient) Drug/Non Drug [...] Problem Status W/U Status Risk Notes Problem Bilateral atherosclerosis of arteries of lower limbs (disorder) (19799976400810427 ) Unspecified atherosclerosis of [place] arteries of extremities, bilateral legs (I70.203) Active confirmed Problem Non-pressure chronic ulcer of other part of right foot limited to breakdown of skin (L97.511) Active confirmed Problem Acquired hammer toe of right foot (3287789647003848) Other hammer toe(s) (acquired), right foot (M20.41) Active confirmed Problem Acquired hammer toe of left foot (4661633103819096) Other hammer toe(s) (acquired), left foot (M20.42) Active confirmed Problem Acquired hammer toe of right foot (5962398480131748) Other hammer toe(s) (acquired), right foot (M20.41) Active confirmed Problem Acquired hammer toe of left foot (2251104207982760) Other hammer toe(s) (acquired), left foot (M20.42) [...] X ray : Foot, right 3V 06/27/2019 10377- Debride <25 sq cm 08/18/2023 20240-SPNNESB SKIN/TISSUE 01/21/2020 09155-SJTOJICG OF HEMATOMA/FLUID 023 Insurance Providers Payer Name Payer Address Payer Phone Subscriber Number Group Number Insured Name Patient Relationship to Insured Coverage Start Date Coverage End Date Medicare National [facility] [address] [place] [address] [id number] Zander Espinal Self - patient is the insured [facility] [employer] [facility] [address] [place] [address] [id number] Zander Espinal Self - patient is [...]
--- OUTSIDE RECORDS SUMMARY | 2024-10-19 08:15 | XMS_ITS ---
Author Organization [facility] Address [address] [place] [address] Care Team Providers Care Certified Hyperbaric Technician Name Role Phone Romain Glez Primary Care Provider Unav ailable Sebastian Smith [phone] REASON FOR VISIT Vascular Clearance Encounters Encounter Location Date Provider Diagnosis [facility] [address] [place] [address] 07/27/2023 Sebastian Smith Plan Of Treatment No Information Progress Notes * Zander GRIDER LDOB: [birth year] (87 yo M)Acc No.[id number]:07/27/2023 Patient:?Zander Grider :1935???Age:87 Y???Sex:Male Address:[address] [place] [address], [address] * true * Date:? Generated for Printi ng/Faxing/eTransmitting on:?10/19/2024 08:15 AM EDT
--- OUTSIDE RECORDS SUMMARY | 2024-10-19 08:15 | XMS_ITS | Patient Health Record ---
Author Organization [facility] Billing Info Address [address] [place] [address] Care Team Providers Care Windmill Mechanic Name Role Phone ALIYA STRICKLAND Unavailable [phone] Reason For Referral No Information Medications Medication [...] Problem Status W/U Status Risk Notes Problem 273966262 Presence of card iac pacemaker (Z95.0) Active confirmed Problem 51320835 Venous insuffici ency (I87.2) Active confirmed Problem 715515641 BMI 29.0-29.9,ad ult (Z68.29) Active confirmed Problem 154528764 salvage determiner curren t use of anticoagulant (Z79.01) Active confirmed Problem 999991973 Atrial fibrillat ion and flutter (I48.91) Active confirmed Problem 80884344 SSS (sick sinus syndrome) (I49.5) Active confirmed Problem 863633565 High risk medica tion use (Z79.899) Active confirmed Problem 828315853 Pure hypercholesterolemia (E78.00) Active confirmed Plan Of Treatment No Information Insurance Providers Payer Name Payer Address Payer Phone Subscriber Number Group Number Insured Name Patient Relationship to Insured Coverage Start Date Coverage End Date [place] PART B [address] [facility] [id number] Zander Celestin Self - patient is the insured 1 0 [employer] PRIOR TO [id number] [address] [place], [place] [id number] Zander Celestin Self - patient is the insured 1 0 Medical (General) History Medical History History ICD Code Atrial fibrillation Atrial flutter High risk medications Sick sinus syndrome or Bradycardia s/p Pacemaker Venous insufficiency Encounter for long-term (current) use of 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s Surgical History Surgery Date(Month/Year) Cardiac pacemaker 2008 Ablasion
--- NOTE | 2024-10-19 08:34 | MHC.OFFVISCO ---
Intake Intake Visit Reasons: Anticoagulation Allergies No Known Allergies [No Known Allergies*] Allergy (Verified 10/19/24 08:23) Medication List - Last Reconciled 10/19/24 by Lindsay Irwin RN atorvastatin 20 mg PO BEDTIME finasteride (Proscar) 5 mg PO DAILY 90 days furosemide (Lasix) 40 mg PO BID magnesium 200 mg PO DAILY metoprolol succinate ER (Toprol XL) 50 mg PO DAILY spironolactone 25 mg PO DAILY tamsulosin 0.4 mg PO BEDTIME warfarin 2 mg See Protocol PO DAILY@1800 Nursing Note INR: 2.0 in therapeutic range of 2-3 Medications and supplements reviewed No changes in health, diet, medications, or supplements, Denies any signs and symptoms of bleeding or bruising or clotting. Bleeding, bruising, clotting discussed Nutritional guidance given Dose: 2mg X 4 days and 4mg X 3 days F/U INR: 4 weeks Patient verbalizes understanding of instructions given Anti-Coag Initial Assessment Social Hx Patient Tobacco Use Status: Former Tobacco user alcohol intake: current Alcohol intake frequency: a few times a week Coding Level of Care Code Est Patient Level 1 Diagnoses Current use of anticoagulant therapy Z79.01 Assessment & Plan Assessment & Plan (1) Current use of anticoagulant therapy: Code(s): Z79.01 - detention (current) use of 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s Category: Medical
== END 2024-10-19 08:37 | disposition home or self-care (01) ==
LOC: HO.ACS 08:08
PROVIDERS: PCP Nurse Practitioner Family; Visit Provider Internal Medicine
DX: Z79.01 Long term (current) use of 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s (principal)

== ENCOUNTER → 2024-10-19 08:08 | Outpatient (BNVA) | payer MEDICARE, OTHER, SELFPAY | PROVIDERS: PCP Nurse Practitioner Family; Visit Provider Internal Medicine | DX: I48.0 Paroxysmal atrial fibrillation (principal); Z79.01 Long term (current) use of 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s; Z51.81 Encounter for therapeutic drug level monitoring | CPT/HCPCS: 85610; 99211 ==

== ENCOUNTER 2024-11-05 15:24 | Outpatient (AMB) | payer MEDICARE, OTHER, SELFPAY ==
--- NOTE | 2024-11-05 15:47 | MHC.OFFVIS ---
Vital Signs 11/05/24 15:49 11/05/24 15:54 11/05/24 15:56 Height 6 ft 3 in Weight 220 lb 14.451 oz BMI 27.6 BP 108/80 121/57 L 87/51 L Blood Pressure Location Lt brachial Lt brachial Lt brachial Position Sitting Supine Standing Pulse 81 94 63 Pulse Source Monitor Intake Visit Reasons: Dizziness Intake Note: dizziness Welding Machine Assembler Required: No Accompanied by: Daughter Allergies No Known Allergies [No Known Allergies*] Allergy (Verified 10/19/24 08:23) Medication List - Last Reconciled 11/05/24 by Delfino Fry MD atorvastatin 20 mg PO BEDTIME finasteride (Proscar) 5 mg PO DAILY 90 days furosemide (Lasix) 40 mg PO BID magnesium 200 mg PO DAILY metoprolol succinate ER (Toprol XL) 50 mg PO DAILY spironolactone 25 mg PO DAILY tamsulosin 0.4 mg PO BEDTIME warfarin 2 mg See Protocol PO DAILY@1800 HPI Comments Details: Pleasant 89 year old gentleman here for follow-up. He was previously seeing Dr. Ku. He has background of atrial fibrillation. He had cardioversion as well as ablation while he was [facility]. Subsequently developed atrial fibrillation again reportedly. Unclear why he had a pacemaker placed but he had pacemaker placed many years ago. He is asymptomatic from atrial fibrillation point of view. Denies any chest pain shortness of breath. No heart failure episodes. Taking medications regularly. No bleeding issues. ECHO in 2020 did not show any wall motion abnormalities. Ejection fraction was 55-60%. Previously he has complained of some chest discomfort which led to Lexiscan which was normal. 01/04/2024: He returns for follow-up. He underwent surgery for hammertoes and he is walking better at this stage. He has left shoulder pain as well as left-sided neck pain. He also has noticed some fullness on the left side of his chest and there is some breast tissue which he has felt. He is concerned that is this related to any heart issue. He is getting a left shoulder injection tomorrow for shoulder pain. He has not been exercising regularly since the hammertoe surgery and due to shoulder pain and he has noticed that he gets out of breath easily. He has permanent atrial fibrillation and has been treated with a rate control strategy and has been on diltiazem. 04/30/2024: He is here for follow-up. No chest pain or shortness of breath. He has some balance issues and has been walking with cane off and on and I have advised him to be careful and use cane whenever he is walking. He also has been experiencing some dizziness especially when he changes posture. At nighttime and he is getting out of bed he gets lightheaded. He hydrates himself well. He is on combination diuretics and diltiazem 180 mg daily. He had stress testing done which showed small area of lateral ischemia in 10/26/2023. This was a preop assessment and he was advised to proceed with hammertoe surgery which he has done successfully. He has no anginal symptoms. 08/27/2024: He is here for follow-up. He is worried about lower extremity edema. There is significant edema in the right lower extremity at the ankles and is 3+ edema there. He also has leg edema on both sides approximately 1 to 2+. 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 He is denying any shortness of breath, orthopnea or PND. He has been drinking Gatorade for electrolytes because his potassium level was little low. He went to the emergency department and was advised to take Lasix 20 mg every other day. He said he saw his primary care physician and was changed to 40 mg which he took for few days but did not have any change in his swelling. He is unable to wear compression stockings because he can not get them on. 09/17/2024: He is here for follow-up. On last visit we advised him to take Lasix daily and added spironolactone. He was advised not to use Gatorade. He underwent venous reflux study and he was referred to vascular surgery for further discussion about it appears no further procedures are indicated. He continues to have lower extremity edema although it looks better to me compared to last time. He is denying any shortness of breath. In August when he got admitted to [facility] with shortness of breath his chest x-ray did have mild congestion and he was in heart failure. Is denying any dyspnea currently. He tried the compression stockings but could not tolerate them. 11/05/2024: Patient came to the office today for dizziness and we had to see him urgently. He has been experiencing dizziness over the last 2-3 weeks. He is saying that when he stands up from a sitting position he gets way dizzy and lightheaded. He has lost his balance and had to hold onto the fonseca and tables at time. He is walking with a cane usually. He is unsure whether he is taking Lasix 40 or 20 mg. He is also unsure whether he is taking it once or twice a day. On outside is supposed to be on Lasix 40 mg twice a day. He is also on metoprolol succinate and the diltiazem was discontinued previously because of lower extremity edema. He is supposed to be on spironolactone but he is unsure about it. The daughter accompanied him but did not know the medications and we will confirm them as she goes home. [facility] Medical History Tachy-garrison syndrome Hypertension, essential, benign Hyperlipidemia Atrial fibrillation Osteoarthritis Pacemaker (~2008) Current use of anticoagulant therapy Surgical History History of colonoscopy History of eye surgery History of appendectomy Status post left foot surgery (~02/2020) Amputated toe of left foot History of cardiac pacemaker History of cardiac radiofrequency ablation (RFA) Family History Father No problems noted. Mother No problems noted. Social History Household Members: Spouse Housing: House Do you presently have visiting nurse or other home services: No Alcohol intake: current Alcohol intake frequency: a few times a week Alcohol type: beer Patient Tobacco Use Status: Former Tobacco user Years Smoked: 15 e-Cigarette/Vaping Use: Never Used Advance Directives Date on File: 09/27/22 service: No Current occupational status: retired Hearing needs: No Vision needs: Yes (Glasses) Review of Systems Const Denies chills, Denies fatigue, Denies fever(s), Reports frequent falls, Denies weakness, Denies weight gain and Reports weight loss ENT Reports dizziness Card Denies chest pain, Denies leg edema, Reports lightheadedness, Denies palpitations, Denies dyspnea and Denies dyspnea on exertion Resp Denies cough, Denies dyspnea and Denies dyspnea on exertion GI Denies hematochezia Musc Denies abnormal gait, Denies muscle weakness, Denies numbness, Denies radiating pain into limb and Denies tingling Neuro Denies abnormal gait, Reports dizziness, Reports frequent falls, Denies numbness, Denies tingling and Denies weakness Endo Denies fatigue and Denies palpitations Physical Exam Vital Signs: Last Vital Signs Pulse 63 11/05/24 15:56 BP 87/51 L 11/05/24 15:56 BMI result Body Mass Index 27.6 He has orthostatic vitals in the office. His blood pressure sitting was 120/57 and standing was 87/51. GENERAL APPEARANCE: in no acute distress, pleasant. NECK: no carotid bruit, no jugular venous distention. SKIN: no suspicious lesions, warm and dry. HEART: no murmurs, irregular rate and rhythm. LUNGS: Clear to auscultation. ABDOMEN: soft, nontender. EXTREMITIES: Bilateral lower extremity edema right more than left. Right ankle 2-3 + edema. PERIPHERAL PULSES: equal. NEUROLOGIC: No gross deficits, AAO X 3 Assessment & Plan Assessment & Plan (1) Chronic diastolic heart failure: Code(s): I50.32 - Chronic diastolic (congestive) heart failure Category: Medical (2) Peripheral edema: Code(s): R60.0 - Localized edema Category: Medical (3) Atrial fibrillation: Code(s): I48.91 - Unspecified atrial fibrillation Category: Medical Plan [age] gentleman who is here for follow-up. He has background history of chronic diastolic heart failure. Denying any shortness of breath on follow-up but continues to have lower extremity edema. We increase the Lasix in the past with the hope that the edema will improve but he has been dizzy. Also there is a lot of confusion about what he is taking at home because he is supposed to be on 40 mg twice a day of Lasix but he is saying that he is taking 20 mg and actually taking it once a day. I have advised him to hold all diuretics currently because he is significantly orthostatic and has been symptomatic due to . The daughter will confirm the medication as she goes home. I have advised him to hydrate himself and eat and drink normally. Hold diuretics for 3 days and then report his symptoms to us. Also we need to confirm medications that what exactly easy taking. He was previously advised not to take diltiazem and was transitioned to metoprolol succinate because he was getting significant lower extremity edema and we felt that diltiazem could be the cause for that. The daughter also is worried that at times he gets dizziness sitting down. I can not explain that based on orthostasis. We will arrange a 5 day Holter monitor for him. He already has a permanent pacemaker and it would be quite unlikely that bradycardia is the reason because the pacemaker has not shown any dysfunction in the past. We will see him back in few months. The daughter reported the symptoms to us in case there is any changes that requires urgent follow-up. Thank you for allowing me to participate in the care of your patient. Please feel free to contact me if you have any questions. Orders: Orders ECG 5 day holter monitor Today I48.91 - Unspecified atrial fibrillation Medications: On Hold furosemide (Lasix) Hold Comment: Doctor's Order 40 mg PO BID 120 tabs 4RF R60.0 - Localized edema Coding Level of Care Code Est Pt Level 5 (81362) Complex EM visit Add On G2211 Diagnoses Chronic diastolic heart failure I50.32 Peripheral edema R60.0 Atrial fibrillation I48.91
[2024-11-05 15:49] VITALS: BP 108/80; PULSE 81; BMI 27.6
[2024-11-05 15:54] VITALS: BP 121/57; PULSE 94
[2024-11-05 15:56] VITALS: BP 87/51; PULSE 63
--- OUTSIDE RECORDS SUMMARY | 2024-11-05 17:23 | XMS_ITS | Patient Health Record ---
Author Organization [facility] Billing Info Address [address] [place] [address] Care Team Providers Care Synthetic Chemist Name Role Phone ALIYA STRICKLAND Unavailable [phone] Reason For Referral No Information Medications Medication [...] Problem Status W/U Status Risk Notes Problem 748914974 Presence of card iac pacemaker (Z95.0) Active confirmed Problem 07698583 Venous insuffici ency (I87.2) Active confirmed Problem 868888618 BMI 29.0-29.9,ad ult (Z68.29) Active confirmed Problem 869573162 supervisor intermediates curren t use of anticoagulant (Z79.01) Active confirmed Problem 489634904 Atrial fibrillat ion and flutter (I48.91) Active confirmed Problem 53084230 SSS (sick sinus syndrome) (I49.5) Active confirmed Problem 061661850 High risk medica tion use (Z79.899) Active confirmed Problem 666063975 Pure hypercholesterolemia (E78.00) Active confirmed Plan Of Treatment No Information Insurance Providers Payer Name Payer Address Payer Phone Subscriber Number Group Number Insured Name Patient Relationship to Insured Coverage Start Date Coverage End Date [place] PART B [address] [facility] [id number] Zander Celestin Self - patient is the insured 1 0 [employer] DOS PRIOR TO [id number] [address] [place], [place] [id number] Zander Celestin Self - patient is the insured 1 0 Medical (General) History Medical History History ICD Code Atrial fibrillation Atrial flutter High risk medications Sick sinus syndrome or Bradycardia s/p Pacemaker Venous insufficiency Encounter for long-term (current) use of 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s Surgical History Surgery Date(Month/Year) Cardiac pacemaker 2008 Ablasion
--- OUTSIDE RECORDS SUMMARY | 2024-11-05 17:23 | XMS_ITS ---
Author Organization [facility] Address [address] [place] [address] Care Team Providers Care Home Health Manager Name Role Phone Romain Glez Primary Care Provider Unav ailable Sebastian Smith [phone] REASON FOR VISIT Vascular Clearance Encounters Encounter Location Date Provider Diagnosis [facility] [address] [place] [address] 07/27/2023 Sebastian Smith Plan Of Treatment No Information Progress Notes * Zander GRIDER LDOB: [birth year] (87 yo M)Acc No.[id number]:07/27/2023 Patient:?Zander Grider :1935???Age:87 Y???Sex:Male Address:[address] [place] [address], [phone] * true * Date:? Generated for Printi ng/Faxing/eTransmitting on:?11/05/2024 05:23 PM EDT
--- OUTSIDE RECORDS SUMMARY | 2024-11-05 17:23 | XMS_ITS ---
Author Organization [facility] Address [address] [place] [address] Care Team Providers Care Shank Tapper Name Role Phone Romain Glez Primary Care Provider Unav ailSebastian Ochoa [phone] REASON FOR VISIT r/s taken off cx list Encounters Encounter Location Date Provider Diagnosis [address] [address] 10/05/2023 Sebastian Smith Plan Of Treatment No Information Progress Notes * Zander GRIDER LDOB: [birth year] (89 yo M)Acc No.[id number]:10/05/2023 Progress Notes Patient:?Zander GRIDER Provider:?Sebastian Smith DPM :1935???Age:88 Y???Sex:Male Chad e:10/05/2023 Address:[address] [place], [place] [address] Pcp:FRIDA Le Subjective: * Chief Complaints: * [...] DPM Date:? 024 Generated for Printi ng/Faxing/eTransmitting on:?11/05/2024 05:23 PM EDT
--- OUTSIDE RECORDS SUMMARY | 2024-11-05 17:23 | XMS_ITS ---
Author [facility] Address [address] [place] [address] Care Team Providers Care Mutuel Department Manager Name Role Phone Romain Glez Primary Care Provider Nayladeonna Kasia Saleemter Unavailable [phone] Allergies Allergen (clinical drug ingredient) Drug/Non Drug [...] Ordered Date Performed Result Body Sit e 46960- Debride <25 sq cm 08/18/2023 N/A Encounters Encounter Location Date Provider Diagnosis [facility] [address] [place] [address] 08/18/2023 Sebastian Smith Tinea unguium B35.1 ; [...] Treatment Pending Test Test Name Order Date 06276- Debride <25 sq cm 08/18/2023 Next Appt Details Follow Up: prn, Reason: Procedure Notes * Category Sub-Category Detail Notes Wart Treatment Procedure Verrucae(s) were debrided to pin-point bleeding margins with sterile surgical blade (64406), silver nitrate chemocautery applied, recomm. Wartstick 40 [...] symptoms of infection or any untoward reactions (52331) Progress Notes * MARNIZander TEMPLETON LDOB: [birth year] (87 yo M)Acc No.[id number]:08/18/2023 Progress Notes Patient:?Zanedr Espinal Provider:?Sebastian Smith DPM :1935???Age:87 Y???Sex:Male Chad e:08/18/2023 Address:[address] [place] [id number] Pcp:FRIDA Le Subjective: * Chief Complaints: * ??? Last PCP Visit: 07/20/23 Wart(s) * HPI: ???Toe pain:?Nature:?throbbing , aching.?Location:?2nd toe , Right foot , 3rd toe , B/L feet.?Duration:?several years.?Course:?progressive.?Aggrevated by:?shoes, any pressure , standing/walking.?Treatments:?bracing/splinting/padding and debridement.?Severity/Quality:?moderate , severe.?Misc:?pt awaiting appt at [facility] for evalution of circulation and vascular [...] symptoms of infection or any untoward reactions (46554).?Wart Treatment:?Procedure?Verrucae(s) were debrided to pin-point bleeding margins with sterile surgical blade (98590), silver nitrate chemocautery applied, recomm. Wartstick 40 percent Salicylic acid application under occlusion as directed.? * Procedure Codes:?72803 Wart Destruction, 1-14, Modifiers: XS 82904 ACTIVE WOUND CARE/20 CM OR <, Modifiers: [...] first then left 3rd toe--pt referred to [facility] for this once vascular clearance has been obtained from [facility].?Consult:?The Pt. was counseled on the diagnosis, treatment options, and the need for a, Vascular Consult due to pedal risk of limb/life--refer to [facility] for pre-op testing prior to scheduling for hammertoe surgery samina 3rd and right 2nd toes.? * Follow Up:?prn * Images: * Sign off status: Completed true * Provider:?Sebastian Smith DPM Date:? 024 Generated for Latha jerry/Edie/Melissa on:?11/05/2024 05:23 PM EDT History and Physical Notes * HPI (History of Present Illness) Category Sub-Category Detail Notes Category Not es Toe pain Nature: throbbing , aching Location: 2nd toe , Right foot , 3rd toe , B/L feet Duration: several years Course: progressive Aggravated by: shoes, any pressure , standing/walking Treatments: bracing/splinting/pa dding and debridement Severity/Quality: moderate , severe Misc: pt awaiting appt at [facility] for evalution of circulation and vascular [...]
--- OUTSIDE RECORDS SUMMARY | 2024-11-05 17:23 | XMS_ITS | Patient Health Record ---
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 confirmed Problem Acquired hammer toe of right foot (5690694915917865) Other hammer toe(s) (acquired), right foot (M20.41) Active confirmed Problem Acquired hammer toe of left foot (6518798215545969) Other hammer toe(s) (acquired), left foot (M20.42) Active confirmed Problem Acquired hammer toe of right foot (9589907186411277) Other hammer toe(s) (acquired), right foot (M20.41) Active confirmed Problem Acquired hammer toe of left foot (5649239626238536) Other hammer toe(s) (acquired), left foot (M20.42) [...] X ray : Foot, right 3V 06/27/2019 40117- Debride <25 sq cm 08/18/2023 41907-OWQLNGR SKIN/TISSUE 01/21/2020 99685-YHLVUXTC OF HEMATOMA/FLUID 023 Insurance Providers Payer Name Payer Address Payer Phone Subscriber Number Group Number Insured Name Patient Relationship to Insured Coverage Start Date Coverage End Date Medicare National [facility] [address] [place] [address] [id number] Zander Espinal Self - patient is the insured [facility] [employer] [facility]) [address] [place] [address] [phone] [id number] Zander Espinal Self - patient is [...]
== END 2024-11-05 16:23 | disposition home or self-care (01) ==
LOC: HO.HCS 15:24
PROVIDERS: PCP Nurse Practitioner Family; Visit Provider Internal Medicine Cardiovascular Disease
DX: I50.32 Chronic diastolic (congestive) heart failure (principal); R60.0 Localized edema; I48.91 Unspecified atrial fibrillation; Z95.0 Presence of cardiac pacemaker
CPT/HCPCS: 99214; G2211

== ENCOUNTER → 2024-11-05 15:24 | Outpatient (BNVA) | payer MEDICARE, OTHER, SELFPAY | PROVIDERS: PCP Nurse Practitioner Family; Visit Provider Internal Medicine Cardiovascular Disease | DX: I48.91 Unspecified atrial fibrillation (principal); I50.32 Chronic diastolic (congestive) heart failure; R60.0 Localized edema; Z87.891 Personal history of nicotine dependence | CPT/HCPCS: 99212 ==

== ENCOUNTER 2024-11-16 09:01 | Outpatient (AMB) | payer MEDICARE, OTHER, SELFPAY ==
[2024-11-16 09:07] LABS: Prothrombin Time Whole Bld POC 26.5 sec (11.1-13.5); ~PT, ~INR - Anti Coag Clinic 2.2 (0.9-1.1)
--- NOTE | 2024-11-16 09:10 | MHC.OFFVISCO ---
Intake Intake Visit Reasons: Anticoagulation Allergies No Known Allergies [No Known Allergies*] Allergy (Verified 11/16/24 09:02) Medication List - Last Reconciled 11/16/24 by Lindsay Irwin, MARY atorvastatin 20 mg PO BEDTIME finasteride (Proscar) 5 mg PO DAILY 90 days furosemide (Lasix) 40 mg PO BID magnesium 200 mg PO DAILY metoprolol succinate ER (Toprol XL) 50 mg PO DAILY spironolactone 25 mg PO DAILY tamsulosin 0.4 mg PO BEDTIME warfarin 2 mg See Protocol PO DAILY@1800 Nursing Note Pt to ACS with use of a cane INR: 2.2 in therapeutic range of 2-3 Medications and supplements reviewed No changes in health, diet, medications, or supplements, Denies any signs and symptoms of bleeding or bruising or clotting. Bleeding, bruising, clotting discussed Nutritional guidance given Dose: 2mg X 4 days and 4mg X 3 days (M/W/F) F/U INR: 4 weeks per pt request Patient verbalizes understanding of instructions given Anti-Coag Initial Assessment Social Hx Patient Tobacco Use Status: Former Tobacco user alcohol intake: current Alcohol intake frequency: a few times a week Coding Level of Care Code Est Patient Level 1 Diagnoses Current use of anticoagulant therapy Z79.01 Assessment & Plan Assessment & Plan (1) Current use of anticoagulant therapy: Code(s): Z79.01 - superintendent terminal (current) use of 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s Category: Medical
--- OUTSIDE RECORDS SUMMARY | 2024-11-16 09:16 | XMS_ITS ---
Author Organization [facility] Address [address] [place] [address] Care Team Providers Care Rigging Up Man Name Role Phone Romain Glez Primary Care Provider Unav ailable Sebastian Smith [phone] REASON FOR VISIT Vascular Clearance Encounters Encounter Location Date Provider Diagnosis [facility] [address] [place] [address] 07/27/2023 Sebastian Smith Plan Of Treatment No Information Progress Notes * Zander GRIDER LDOB: [birth year] (87 yo M)Acc No.[id number]:07/27/2023 Patient:?Zander Grider :1935???Age:87 Y???Sex:Male Address:[address] [place] [address], [address] * true * Date:? Generated for Printi ng/Faxing/eTransmitting on:?11/16/2024 09:16 AM EDT
--- OUTSIDE RECORDS SUMMARY | 2024-11-16 09:16 | XMS_ITS ---
Author Organization [facility] Address [address] [place] [address] Care Team Providers Care Insulation Helper Name Role Phone Romain Glez Primary Care Provider Unav ailSebastian Ochoa [phone] REASON FOR VISIT r/s taken off cx list Encounters Encounter Location Date Provider Diagnosis [address] [address] 10/05/2023 Sebastian Smith Plan Of Treatment No Information Progress Notes * Zander GRIDER LDOB: [birth year] (89 yo M)Acc No.[id number]:10/05/2023 Progress Notes Patient:?Zander GRIDER Provider:?Sebastian Smith DPM :1935???Age:88 Y???Sex:Male Chad e:10/05/2023 Address:[address] [place], [place] [address] Pcp:FRIDA Le Subjective: * Chief Complaints: * [...] DPM Date:? 024 Generated for Printi ng/Faxing/eTransmitting on:?11/16/2024 09:15 AM EDT
--- OUTSIDE RECORDS SUMMARY | 2024-11-16 09:16 | XMS_ITS | Patient Health Record ---
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 confirmed Problem Acquired hammer toe of right foot (6367331524354162) Other hammer toe(s) (acquired), right foot (M20.41) Active confirmed Problem Acquired hammer toe of left foot (8011633233282147) Other hammer toe(s) (acquired), left foot (M20.42) Active confirmed Problem Acquired hammer toe of right foot (1376072777582838) Other hammer toe(s) (acquired), right foot (M20.41) Active confirmed Problem Acquired hammer toe of left foot (8984228920876539) Other hammer toe(s) (acquired), left foot (M20.42) [...] X ray : Foot, right 3V 06/27/2019 14994- Debride <25 sq cm 08/18/2023 09306-YOAXLAE SKIN/TISSUE 01/21/2020 34715-OCOWZNYP OF HEMATOMA/FLUID 023 Insurance Providers Payer Name Payer Address Payer Phone Subscriber Number Group Number Insured Name Patient Relationship to Insured Coverage Start Date Coverage End Date Medicare National [facility] [address] [facility] [place] [address] [id number] Zander Espinal Self - patient is the insured [facility]) [address] [place] [address] [id number] Zander Espinal Self - patient is [...]
--- OUTSIDE RECORDS SUMMARY | 2024-11-16 09:16 | XMS_ITS ---
Author Organization [facility] Address [address] [place] [address] Care Team Providers Care Acid Pumper Name Role Phone Romain Glez Primary Care Provider Nayladeonna Kasia Saleemter Unavailable [phone] Allergies Allergen (clinical drug ingredient) Drug/Non Drug [...] Ordered Date Performed Result Body Sit e 21761- Debride <25 sq cm 08/18/2023 N/A Encounters Encounter Location Date Provider Diagnosis [facility] [address] [place] [address] 08/18/2023 Sebastian Smith Tinea unguium B35.1 ; [...] Treatment Pending Test Test Name Order Date 72317- Debride <25 sq cm 08/18/2023 Next Appt Details Follow Up: prn, Reason: Procedure Notes * Category Sub-Category Detail Notes Wart Treatment Procedure Verrucae(s) were debrided to pin-point bleeding margins with sterile surgical blade (87122), silver nitrate chemocautery applied, recomm. Wartstick 40 [...] symptoms of infection or any untoward reactions (28419) Progress Notes * MARNIZander TEMPLETON LDOB: [birth year] (87 yo M)Acc No.[id number]:08/18/2023 Progress Notes Patient:?Zander Espinal Provider:?Sebastian Smith DPM :1935???Age:87 Y???Sex:Male Chad e:08/18/2023 Address:[address] [place] [id number] Pcp:FRIDA Le Subjective: * Chief Complaints: * ??? Last PCP Visit: 07/20/23 Wart(s) * HPI: ???Toe pain:?Nature:?throbbing , aching.?Location:?2nd toe , Right foot , 3rd toe , B/L feet.?Duration:?several years.?Course:?progressive.?Aggrevated by:?shoes, any pressure , standing/walking.?Treatments:?bracing/splinting/padding and debridement.?Severity/Quality:?moderate , severe.?Misc:?pt awaiting appt at [facility] for evalution of circulation and vascular clearance [...] symptoms of infection or any untoward reactions (16372).?Wart Treatment:?Procedure?Verrucae(s) were debrided to pin-point bleeding margins with sterile surgical blade (42869), silver nitrate chemocautery applied, recomm. Wartstick 40 percent Salicylic acid application under occlusion as directed.? * Procedure Codes:?54020 Wart Destruction, 1-14, Modifiers: XS 62315 ACTIVE WOUND CARE/20 CM OR <, Modifiers: [...] first then left 3rd toe--pt referred to [facility] for this once vascular clearance has been obtained from [facility].?Consult:?The Pt. was counseled on the diagnosis, treatment options, and the need for a, Vascular Consult due to pedal risk of limb/life--refer to [facility] for pre-op testing prior to scheduling for hammertoe surgery samina 3rd and right 2nd toes.? * Follow Up:?prn * Images: * Sign off status: Completed true * Provider:?Sebastian Smith DPM Date:? 024 Generated for Latha jerry/Edie/Melissa on:?11/16/2024 09:15 AM EDT History and Physical Notes * HPI (History of Present Illness) Category Sub-Category Detail Notes Category Not es Toe pain Nature: throbbing , aching Location: 2nd toe , Right foot , 3rd toe , B/L feet Duration: several years Course: progressive Aggravated by: shoes, any pressure , standing/walking Treatments: bracing/splinting/pa dding and debridement Severity/Quality: moderate , severe Misc: pt awaiting appt at [facility] for evalution of circulation and vascular clearance [...]
== END 2024-11-16 09:11 | disposition home or self-care (01) ==
LOC: HO.ACS 09:01
PROVIDERS: PCP Nurse Practitioner Family; Visit Provider Internal Medicine Medical Oncology
DX: Z79.01 Long term (current) use of 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s (principal)

== ENCOUNTER → 2024-11-16 09:14 | Outpatient (REF) | payer MEDICARE, OTHER, SELFPAY ==
--- OUTSIDE RECORDS SUMMARY | 2024-11-16 09:37 | XMS_ITS | Patient Health Record ---
Author Organization [facility] Billing Info Address [address] [place] [address] Care Team Providers Care Harvest Worker Name Role Phone ALIYA STRICKLAND Unavailable [phone] Reason For Referral No Information Medications Medication [...] Problem Status W/U Status Risk Notes Problem 380857748 Presence of card iac pacemaker (Z95.0) Active confirmed Problem 44280277 Venous insuffici ency (I87.2) Active confirmed Problem 838875988 BMI 29.0-29.9,ad ult (Z68.29) Active confirmed Problem 669542887 oil heaterman curren t use of anticoagulant (Z79.01) Active confirmed Problem 084821383 Atrial fibrillat ion and flutter (I48.91) Active confirmed Problem 33788902 SSS (sick sinus syndrome) (I49.5) Active confirmed Problem 646865777 High risk medica tion use (Z79.899) Active confirmed Problem 659643740 Pure hypercholesterolemia (E78.00) Active confirmed Plan Of Treatment No Information Insurance Providers Payer Name Payer Address Payer Phone Subscriber Number Group Number Insured Name Patient Relationship to Insured Coverage Start Date Coverage End Date [place] PART B [address] [facility] [employer] [place] [id number] Zander Celestin Self - patient is the insured 1 0 UNICARE DOS PRIOR TO [id number] [address] [place], [place] [id number] Zander Celestin Self - patient is the insured 1 0 Medical (General) History Medical History History ICD Code Atrial fibrillation Atrial flutter High risk medications Sick sinus syndrome or Bradycardia s/p Pacemaker Venous insufficiency Encounter for long-term (current) use of 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s Surgical History Surgery Date(Month/Year) Cardiac pacemaker 2008 Ablasion
[2024-11-16 10:03] LABS: INTERNATIONAL NORM RATIO 2.2 (0.9-1.1); Prothrombin Time 26.1 SEC (10.9-12.4)
[2024-11-16 10:41] LABS: PSA,Total (Free>4and<10) 7.94 ng/mL (0.00-4.00)
[2024-11-19 11:04] LABS: Free Prostate Spec Ag 1.5 ng/mL; Percent Free Prostate Spec Ag 18 % (calc) (>25); Prostate Specific Ag Total 8.4 ng/mL (< OR = 4.0)
== END ==
LOC: HO.CARD 09:14
PROVIDERS: Absent Provider Urology; PCP Nurse Practitioner Family; Referring Provider Internal Medicine Cardiovascular Disease; Visit Provider Internal Medicine Cardiovascular Disease
DX: R97.20 Elevated prostate specific antigen [PSA] (principal); N40.0 Benign prostatic hyperplasia without lower urinary tract symptoms; I48.91 Unspecified atrial fibrillation; Z12.5 Encounter for screening for malignant neoplasm of prostate
CPT/HCPCS: 36415; 84153; 84154; 85610; 93242; 99211

== ENCOUNTER → 2024-11-16 09:24 | Outpatient (BNV) | payer MEDICARE, OTHER, SELFPAY | PROVIDERS: Absent Provider Urology; PCP Nurse Practitioner Family; Referring Provider Internal Medicine Cardiovascular Disease; Visit Provider Internal Medicine | DX: I48.91 Unspecified atrial fibrillation (principal) | CPT/HCPCS: 93244 ==

== ENCOUNTER → 2024-11-27 23:59 | Outpatient (BNV) | payer MEDICARE, OTHER, SELFPAY ==
--- NOTE | 2024-12-10 10:22 | A.OFFVIS_ITS ---
Intake Visit Reasons: Remote device check- [facility] Allergies No Known Allergies [No Known Allergies*] Allergy (Verified 11/16/24 09:02) [facility] Medical History Tachy-garrison syndrome Hypertension, essential, benign Hyperlipidemia Atrial fibrillation Osteoarthritis Pacemaker (~2008) Current use of anticoagulant therapy Surgical History History of colonoscopy History of eye surgery History of appendectomy Status post left foot surgery (~02/2020) Amputated toe of left foot History of cardiac pacemaker History of cardiac radiofrequency ablation (RFA) Family History Father No problems noted. Mother No problems noted. Social History Household Members: Spouse Housing: House Do you presently have visiting nurse or other home services: No Alcohol intake: current Alcohol intake frequency: a few times a week Alcohol type: beer Patient Tobacco Use Status: Former Tobacco user Years Smoked: 15 e-Cigarette/Vaping Use: Never Used Advance Directives Date on File: 09/27/22 service: No Current occupational status: retired Hearing needs: No Vision needs: Yes (Glasses) Office Procedures Cardiac Device Check Cardiac Device Check Details: Single lead pacemaker. Good battery life. V paced 32%. No other alerts. [id number] Cardiac Device Interrogation, pacemaker Procedure code (CPT) selection complete Assessment & Plan Assessment & Plan (1) Pacemaker: Onset Date: ~2008 Comment: (Pacemaker SCPP- [facility] - Initial DCPP 2008, replaced/SCPP 2017) Code(s): Z95.0 - Presence of cardiac pacemaker Category: Medical Plan Coding Level of Care Code Procedure Only Diagnoses Pacemaker Z95.0 CPT Codes Cardiac Device Check - Cardiac Device 12: [id number] Cardiac Device Interrogation, pacemaker ([id number])
== END ==
PROVIDERS: PCP Nurse Practitioner Family; Visit Provider Internal Medicine Cardiovascular Disease
DX: Z45.018 Encounter for adjustment and management of other part of cardiac pacemaker (principal)
CPT/HCPCS: 93294

== ENCOUNTER 2024-12-12 13:12 | Outpatient (AMB) | payer MEDICARE, OTHER, SELFPAY ==
--- NOTE | 2024-12-12 13:16 | A.OFFVIS_ITS ---
Vital Signs 12/12/24 13:21 Height 6 ft 3 in Weight 222 lb 3.615 oz BMI 27.8 BP 100/60 Blood Pressure Location Lt brachial Position Sitting Pulse 104 H Pulse Source Monitor Intake Visit Reasons: sooner appt/ weakness, dizziness Intake Note: f/up-pt is waking weakness, dizziness with leg swelling Copywriting Intern Required: No Accompanied by: Daughter Allergies No Known Allergies [No Known Allergies*] Allergy (Verified 11/16/24 09:02) Medication List - Last Reconciled 12/12/24 by Delfino Fry MD atorvastatin 20 mg PO BEDTIME finasteride (Proscar) 5 mg PO DAILY 90 days furosemide (Lasix) 40 mg PO BID magnesium 200 mg PO DAILY metoprolol succinate ER (Toprol XL) 50 mg PO DAILY spironolactone 25 mg PO DAILY tamsulosin 0.4 mg PO BEDTIME warfarin 2 mg See Protocol PO DAILY@1800 HPI Comments Details: Pleasant 89 year old gentleman here for follow-up. He was previously seeing Dr. Ku. He has background of atrial fibrillation. He had cardioversion as well as ablation while he was at [facility]. Subsequently d eveloped atrial fibrillation again reportedly. Unclear why he had a pacemaker placed but he had pacemaker placed many years ago. He is asymptomatic from atrial fibrillation point of view. Denies any chest pain shortness of breath. No heart failure episodes. Taking medications regularly. No bleeding issues. ECHO in 2020 did not show any wall motion abnormalities. Ejection fraction was 55-60%. Previously he has complained of some chest discomfort which led to Lexiscan which was normal. 01/04/2024: He returns for follow-up. He underwent surgery for hammertoes and he is walking better at this stage. He has left shoulder pain as well as left- sided neck pain. He also has noticed some fullness on the left side of his chest and there is some breast tissue which he has felt. He is concerned that is this related to any heart issue. He is getting a left shoulder injection tomorrow for shoulder pain. He has not been exercising regularly since the hammertoe surgery and due to shoulder pain and he has noticed that he gets out of breath easily. He has permanent atrial fibrillation and has been treated with a rate control strategy and has been on diltiazem. 04/30/2024: He is here for follow-up. No chest pain or shortness of breath. He has some balance issues and has been walking with cane off and on and I have advised him to be careful and use cane whenever he is walking. He also has been experiencing some dizziness especially when he changes posture. At nighttime and he is getting out of bed he gets lightheaded. He hydrates himself well. He is on combination diuretics and diltiazem 180 mg daily. He had stress testing done which showed small area of lateral ischemia in 10/26/2023. This was a preop assessment and he was advised to proceed with hammertoe surgery which he has done successfully. He has no anginal symptoms. 08/27/2024: He is here for follow-up. He is worried about lower extremity edema. There is significant edema in the right lower extremity at the ankles and is 3+ edema there. He also has leg edema on both sides approximately 1 to 2+. 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 He is denying any shortness of breath, orthopnea or PND. He has been drinking Gatorade for electrolytes because his potassium level was little low. He went to the emergency department and was advised to take Lasix 20 mg every other day. He said he saw his primary care physician and was changed to 40 mg which he took for few days but did not have any change in his swelling. He is unable to wear compression stockings because he can not get them on. 09/17/2024: He is here for follow-up. On last visit we advised him to take Lasix daily and added spironolactone. He was advised not to use Gatorade. He underwent venous reflux study and he was referred to vascular surgery for further discussion about it appears no further procedures are indicated. He continues to have lower extremity edema although it looks better to me compared to last time. He is denying any shortness of breath. In August when he got admitted to [facility] with shortness of breath his chest x-ray did have mild congestion and he was in heart failure. Is denying any dyspnea currently. He tried the compression stockings but could not tolerate them. 11/05/2024: Patient came to the office today for dizziness and we had to see him urgently. He has been experiencing dizziness over the last 2-3 weeks. He is saying that when he stands up from a sitting position he gets way dizzy and lightheaded. He has lost his balance and had to hold onto the fonseca and tables at time. He is walking with a cane usually. He is unsure whether he is taking Lasix 40 or 20 mg. He is also unsure whether he is taking it once or twice a day. On outside is supposed to be on Lasix 40 mg twice a day. He is also on metoprolol succinate and the diltiazem was discontinued previously because of lower extremity edema. He is supposed to be on spironolactone but he is unsure about it. The daughter accompanied him but did not know the medications and we will confirm them as she goes home. 12/12/2024; he is here for follow-up. He was recently seen in end of October when he was getting dizziness and was taking Cardizem and metoprolol when he was advised not to use Cardizem. He has stopped using Cardizem and he is taking metoprolol but continues to get dizziness. Today he is describing a vertigo- like feeling that is head is spinning and loses his balance. This also happens while sitting and watching television. He also gets blurring of vision when this happens. He is still has lower extremity edema but it has improved and he just has ankle edema at this point and I think 40 mg twice a day of Lasix is working well for him. His heart rates are in low 100 on Toprol-XL 50 mg daily. [facility] Medical History Tachy-garrison syndrome Hypertension, essential, benign Hyperlipidemia Atrial fibrillation Osteoarthritis Pacemaker (~2008) Current use of anticoagulant therapy Surgical History History of colonoscopy History of eye surgery History of appendectomy Status post left foot surgery (~02/2020) Amputated toe of left foot History of cardiac pacemaker History of cardiac radiofrequency ablation (RFA) Family History Father No problems noted. Mother No problems noted. Social History Household Members: Spouse Housing: House Do you presently have visiting nurse or other home services: No Alcohol intake: current Alcohol intake frequency: a few times a week Alcohol type: beer Patient Tobacco Use Status: Former Tobacco user Years Smoked: 15 e-Cigarette/Vaping Use: Never Used Advance Directives Date on File: 09/27/22 service: No Current occupational status: retired Hearing needs: No Vision needs: Yes (Glasses) Review of Systems Const Denies chills, Denies fatigue, Denies fever(s), Denies frequent falls, Denies weakness, Denies weight gain and Denies weight loss ENT Reports dizziness Card Denies chest pain, Reports edema, Reports claudication, Reports leg edema, Denies lightheadedness, Denies palpitations, Reports dyspnea and Reports dyspnea on exertion Resp Denies cough, Reports dyspnea and Reports dyspnea on exertion GI Denies hematochezia Musc Denies abnormal gait, Denies muscle weakness, Denies numbness, Denies radiating pain into limb and Denies tingling Neuro Denies abnormal gait, Reports dizziness, Denies frequent falls, Denies numbness, Denies tingling and Denies weakness Endo Denies fatigue and Denies palpitations Physical Exam Vital Signs: Last Vital Signs Pulse 104 H 12/12/24 13:21 BP 100/60 12/12/24 13:21 BMI result Body Mass Index 27.8 GENERAL APPEARANCE: in no acute distress, pleasant. NECK: no carotid bruit, no jugular venous distention. SKIN: no suspicious lesions, warm and dry. HEART: no murmurs, irregular rate and rhythm. LUNGS: Clear to auscultation. ABDOMEN: soft, nontender. EXTREMITIES: Bilateral Ankle edema. PERIPHERAL PULSES: equal. NEUROLOGIC: No gross deficits, AAO X 3 Office Procedures EKG Details: Atrial fibrillation 104 beats per minute, rightward axis, nonspecific ST-T changes, QTC 447 milliseconds. 38507-Zducrmjprjqjufwra, Complete Assessment & Plan Assessment & Plan (1) CHF (congestive heart failure): Code(s): I50.9 - Heart failure, unspecified Category: Medical (2) Atrial fibrillation: Code(s): I48.91 - Unspecified atrial fibrillation Category: Medical (3) Hypertension, essential, benign: Code(s): I10 - Essential (primary) hypertension Category: Medical (4) Dizziness: Code(s): R42 - Dizziness and giddiness Category: Medical Plan [age] year gentleman with atrial fibrillation, diastolic heart failure, peripheral edema and dizziness. From heart failure point of view he appears to be fairly euvolemic at this point and I think we should continue 40 mg twice a day Lasix. Average heart rate was 95 beats per minute on Holter monitoring and I think Toprol-XL 50 mg daily is appropriate for now. He also is complaining of some dizziness and I do not want to change medications currently. He previously was orthostatic. Complaining of off spinning sensation which sounds more like vertigo. This can happen to him even while sitting. I have advised him to do a trial of meclizine. I am sending that to his pharmacy. I am also referring him to ENT for further assessment. He will have high assessment through his second facing baster 2. I have explained to the patient that he has some edema peripherally but overall this has improved and given his dizziness and orthostasis I do not think we can increase medications currently. He is complaining of some lower extremity pain and I will arrange arterial duplex to rule out any vascular disease. Thank you for allowing me to participate in the care of your patient. Please feel free to contact me if you have any questions. Orders: Orders US arterial duplex LE Today M79.661 - Pain in right lower leg, M79.662 - Pain in left lower leg Referrals Ear/Nose/Throat Referral R42 - Dizziness and giddiness Medications: New meclizine 12.5 mg PO BID PRN 30 tabs 0RF dizziness Resumed furosemide (Lasix) 40 mg PO BID 120 tabs 4RF R60.0 - Localized edema Coding Level of Care Code Est Pt Level 5 (89014) Diagnoses CHF (congestive heart failure) I50.9 Atrial fibrillation I48.91 Hypertension, essential, benign I10 Dizziness R42 CPT Codes EKG - CPT: 90978-Paggjaldcdmfjaxfs, Complete ([id number])
[2024-12-12 13:21] VITALS: BP 100/60; PULSE 104; BMI 27.8
--- OUTSIDE RECORDS SUMMARY | 2024-12-12 14:27 | XMS_ITS ---
Author Organization [facility] Address [address] [place] [address] Care Team Providers Care Provider Contracting Consultant Name Role Phone Romain Glez Primary Care Provider Naylav Bel Zazueta Unavailable [phone] Sebastian Smith [phone] REASON FOR VISIT Vascular Clearance Encounters Encounter Location Date Provider Diagnosis [address] [address] 07/27/2023 Sebastian Smith Plan Of Treatment Next Appt Details Provider Name:Bel shields, 12/13/2024 03:15:00 PM, [address] [place], [address], Progress Notes * MARNI Zander LDOB: [birth year] (87 yo M)Acc No.[id number]:07/27/2023 Patient:?Zander Espinal Afia :1935???Age:87 Y???Sex:Male Address:[address] [place], [address] * true * Date:? Generated for Printi ng/Faxing/eTransmitting on:?12/12/2024 02:27 PM EDT
--- OUTSIDE RECORDS SUMMARY | 2024-12-12 14:27 | XMS_ITS ---
Author Organization [facility] Address [address] [place] [address] Care Team Providers Care Tea Blender Name Role Phone Romain Glez Primary Care Provider Bel Cobos Unavailable [phone] Sebastian Smith Unavailable [phone] Allergies Allergen (clinical drug ingredient) Drug/Non Drug [...] Ordered Date Performed Result Body Sit e 66963- Debride <25 sq cm 08/18/2023 N/A Encounters Encounter Location Date Provider Diagnosis [facility] [place] [address] [place] [address] 08/18/2023 Sebastian Smith Tinea unguium B35.1 ; [...] Treatment Pending Test Test Name Order Date 70755- Debride <25 sq cm 08/18/2023 Next Appt Details Follow Up: prn, Reason: Provider Name:Bel shields, 12/13/2024 03:15:00 PM, [address] [place], [address], Procedure Notes * Category Sub-Category Detail Notes Wart Treatment Procedure Verrucae(s) were debrided to pin-point bleeding margins with sterile surgical blade (05085), silver nitrate chemocautery applied, recomm. Wartstick 40 [...] symptoms of infection or any untoward reactions (22041) Progress Notes * MARNI Zander LDOB: [birth year] (87 yo M)Acc No.[id number]:08/18/2023 Progress Notes Patient:?Zander Espinal Provider:?Sebastian Smith DPM :1935???Age:87 Y???Sex:Male Chad e:08/18/2023 Address:[address] [place] [address] [id number] Pcp:FRIDA Le Subjective: * Chief Complaints: * [...] cool, proximal to distal, B/L.?HAIR GROWTH/TEXTURE/ELASTICITY/TURGOR:?normal, B/L.?PIGMENTATION:?normal, B/L.?EDEMA:?1/4 , Right , Ankle(s).?TELANGECTASIA:?absent.?VARICOSITIES:?absent.?Orthopedic: ?MUSCLE STRENGTH:?5/5 all [...] symptoms of infection or any untoward reactions (82047).?Wart Treatment:?Procedure?Verrucae(s) were debrided to pin-point bleeding margins with sterile surgical blade (33110), silver nitrate chemocautery applied, recomm. Wartstick 40 percent Salicylic acid application under occlusion as directed.? * Procedure Codes:?22685 Wart Destruction, 1-14, Modifiers: XS 20277 ACTIVE WOUND CARE/20 CM OR <, Modifiers: [...] first then left 3rd toe--pt referred to [facility] for this once vascular clearance has [...] DPM Date:? 024 Generated for Latha jerry/Edie/Melissa on:?12/12/2024 02:26 PM EDT History and Physical Notes * [...]
--- OUTSIDE RECORDS SUMMARY | 2024-12-12 14:27 | XMS_ITS | Patient Health Record ---
Author Organization [facility] Billing Info Address [address] [place] [address] Care Team Providers Care Machine Cloth Examiner Name Role Phone ALIYA STRICKLAND Unavailable [phone] Reason For Referral No Information Medications Medication [...] Problem Status W/U Status Risk Notes Problem 357087893 Presence of card iac pacemaker (Z95.0) Active confirmed Problem 29957372 Venous insuffici ency (I87.2) Active confirmed Problem 317521232 BMI 29.0-29.9,ad ult (Z68.29) Active confirmed Problem 058936414 correction curren t use of anticoagulant (Z79.01) Active confirmed Problem 851263770 Atrial fibrillat ion and flutter (I48.91) Active confirmed Problem 94099754 SSS (sick sinus syndrome) (I49.5) Active confirmed Problem 520073066 High risk medica tion use (Z79.899) Active confirmed Problem 043624134 Pure hypercholesterolemia (E78.00) Active confirmed Plan Of Treatment No Information Insurance Providers Payer Name Payer Address Payer Phone Subscriber Number Group Number Insured Name Patient Relationship to Insured Coverage Start Date Coverage End Date [place] PART B [address] [facility] [employer] [id number] Zander Celestin Self - patient is the insured 1 0 UNICARE DOS PRIOR TO [id number] [address] [place], [place] [id number] Zander Celestin Self - patient is the insured 1 0 Medical (General) History Medical History History ICD Code Atrial fibrillation Atrial flutter High risk medications Sick sinus syndrome or Bradycardia s/p Pacemaker Venous insufficiency Encounter for long-term (current) use of 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s Surgical History Surgery Date(Month/Year) Cardiac pacemaker 2008 Ablasion
--- OUTSIDE RECORDS SUMMARY | 2024-12-12 14:27 | XMS_ITS ---
Author Organization [facility] Address [address] [place] [address] Care Team Providers Care Back Hand Name Role Phone Romain Glez Primary Care Provider Unav ailable Bel Beatty Unavailable [phone] Sebastian Smith [phone] REASON FOR VISIT r/s taken off cx list Encounters Encounter Location Date Provider Diagnosis [address] [address] 10/05/2023 Sebastian Smith Plan Of Treatment Next Appt Details Provider Name:Bel Kramer alyson, 12/13/2024 03:15:00 PM, [address] [place] [address], [address], Progress Notes * Zander GRIDER LDOB: [birth year] (89 yo M)Acc No.[id number]:10/05/2023 Progress Notes Patient:?Zander GRIDER Provider:?Sebastian Smith DPM :1935???Age:88 Y???Sex:Male Chad e:10/05/2023 Address:[address] [id number] Pcp:FRIDA Le Subjective: * Chief Complaints: * ???1. R/s taken off cx list. * Medical History:? Objective: * Vitals:? Assessment: Plan: * Treatment: * Images: * The named appointment provid er may or may not be the originator of this progress note, and it is not deemed complete until electronically signed by the appointment provider. Sign off status: Pending * Provider:Elly Smith DPM Date:? 024 Generated for Latha jerry/Edie/Melissa on:?12/12/2024 02:26 PM EDT
--- OUTSIDE RECORDS SUMMARY | 2024-12-12 14:27 | XMS_ITS | Patient Health Record ---
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 confirmed Problem Acquired hammer toe of right foot (7451411696282508) Other hammer toe(s) (acquired), right foot (M20.41) Active confirmed Problem Acquired hammer toe of left foot (8341212846779864) Other hammer toe(s) (acquired), left foot (M20.42) Active confirmed Problem Acquired hammer toe of right foot (0001373253624270) Other hammer toe(s) (acquired), right foot (M20.41) Active confirmed Problem Acquired hammer toe of left foot (0475467401456318) Other hammer toe(s) (acquired), left foot (M20.42) [...] X ray : Foot, right 3V 06/27/2019 22369- Debride <25 sq cm 08/18/2023 69789-DKBZVZC SKIN/TISSUE 01/21/2020 63411-WGJPWQCP OF HEMATOMA/FLUID 023 Next Appt Details Provider Name:Bel Evansjunaid shields, 12/13/2024 03:15:00 PM, [address] [facility], [place], [address], Insurance Providers Payer Name Payer Address Payer Phone Subscriber Number Group Number Insured Name Patient Relationship to Insured Coverage Start Date Coverage End Date Medicare National [facility] [address] [place] [address] [phone] [id number] Zander Espinal Self - patient is the insured [facility]) [address] [place] [id number] Zander Espinal Self - patient is [...]
== END 2024-12-12 13:57 | disposition home or self-care (01) ==
LOC: HO.HCS 13:13
PROVIDERS: PCP Nurse Practitioner Family; Visit Provider Internal Medicine Cardiovascular Disease
DX: I50.9 Heart failure, unspecified (principal); I48.91 Unspecified atrial fibrillation; I10 Essential (primary) hypertension; R42 Dizziness and giddiness
CPT/HCPCS: 93010; 99214

== ENCOUNTER → 2024-12-12 13:12 | Outpatient (BNVA) | payer MEDICARE, OTHER, SELFPAY | PROVIDERS: PCP Nurse Practitioner Family; Visit Provider Internal Medicine Cardiovascular Disease | DX: I48.91 Unspecified atrial fibrillation (principal); I11.0 Hypertensive heart disease with heart failure; I50.9 Heart failure, unspecified; R42 Dizziness and giddiness; M79.661 Pain in right lower leg; M79.662 Pain in left lower leg | CPT/HCPCS: 93005; 99212 ==

== ENCOUNTER 2024-12-14 09:03 | Outpatient (AMB) | payer MEDICARE, OTHER, SELFPAY ==
--- NOTE | 2024-12-14 09:15 | MHC.OFFVISCO ---
Intake Intake Visit Reasons: Anticoagulation Allergies No Known Allergies [No Known Allergies*] Allergy (Verified 12/14/24 09:07) Medication List - Last Reconciled 12/14/24 by Lindsay Irwin RN atorvastatin 20 mg PO BEDTIME finasteride (Proscar) 5 mg PO DAILY 90 days furosemide (Lasix) 40 mg PO BID magnesium 200 mg PO DAILY meclizine 12.5 mg PO BID PRN metoprolol succinate ER (Toprol XL) 50 mg PO DAILY spironolactone 25 mg PO DAILY tamsulosin 0.4 mg PO BEDTIME warfarin 2 mg See Protocol PO DAILY@1800 Nursing Note INR: 2.2 in therapeutic range of 2-3 Medications and supplements reviewed No changes in health, diet, medications, or supplements, Denies any signs and symptoms of bleeding or bruising or clotting. Bleeding, bruising, clotting discussed Nutritional guidance given Dose: keep same dose of 2mg X 4 days and 4mg X 3 days (M/W/F) F/U INR: 4 weeks Patient verbalizes understanding of instructions given Anti-Coag Initial Assessment Social Hx Patient Tobacco Use Status: Former Tobacco user alcohol intake: current Alcohol intake frequency: a few times a week Coding Level of Care Code Est Patient Level 1 Diagnoses Current use of anticoagulant therapy Z79.01 Assessment & Plan Assessment & Plan (1) Current use of anticoagulant therapy: Code(s): Z79.01 - intermediate accountant (current) use of 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s Category: Medical
[2024-12-14 09:16] LABS: Prothrombin Time Whole Bld POC 25.9 sec (11.1-13.5); ~PT, ~INR - Anti Coag Clinic 2.2 (0.9-1.1)
--- OUTSIDE RECORDS SUMMARY | 2024-12-14 09:16 | XMS_ITS ---
Author Organization [facility] Address [address] [place] [address] Care Team Providers Care Plastics And Composites Inspector Name Role Phone Romain Glez Primary Care Provider Unav reinaable Rogerio Bel Unavailable [phone] Sebastian Smith [phone] REASON FOR VISIT r/s taken off cx list Encounters Encounter Location Date Provider Diagnosis [facility] [address] [place] [address] 10/05/2023 Sebastian Smith Plan Of Treatment No Information Progress Notes * Zander GRIDER LDOB: [birth year] (89 yo M)Acc No.[id number]:10/05/2023 Progress Notes Patient:?Zander GRIDER Provider:Elly Smith DPM :1935???Age:88 Y???Sex:Male Chad e:10/05/2023 Address:[address] [place], [place] [address] Pcp:FRIDA Le Subjective: * Chief Complaints: * [...] DPM Date:? 024 Generated for Latha jerry/Edie/Melissa on:?12/14/2024 09:16 AM EDT
--- OUTSIDE RECORDS SUMMARY | 2024-12-14 09:17 | XMS_ITS | Patient Health Record ---
Author Organization [facility] Address [address] [place] [address] Care Team Providers Care Boat Hand Name Role Phone Romain Glez Primary Care Provider Bel Cobos Unavailable [phone] Allergies Allergen (clinical drug ingredient) Drug/Non Drug [...] Once a day for 30 day(s) Active Atorvastatin Calcium 20 MG 1 tablet Orally Once a day for 30 day(s) Active dilTIAZem HCl ER 180 MG 1 capsule Orally Once a day for 30 day(s) Active Keflex 500 MG 1 capsule Orally [place] ry 12 hrs for 10 day(s) 01/31/2020 Not-Taking Social History Tobacco Use: Social History Observation Description Date Details (start date - stop date) Never Smoker NA - NA Tobacco use other than smoking: Question Answer Notes Are you an other tobacco user? No Tobacco Control (Standard) Question Answer Notes Tobacco use: Nonsmoker Additional Findings: Tobacco non-user Current no nsmoker AUDIT-C (Standard) Question Answer Notes Did you have a drink containing alcohol in the p ast year? No Points 0 Interpretation Negative Problems Problem Type SNOMED Code ICD Code Onset Dates Problem Status W/U Status Risk Notes Problem Bilateral atherosclerosis of arteries of lower limbs (disorder) (08832270015324300 ) Unspecified atherosclerosis of [place] arteries of extremities, bilateral legs (I70.203) Active confirmed Problem Non-pressure chronic ulcer of other part of right foot limited to breakdown of skin (L97.511) Active confirmed Problem Acquired hammer toe of right foot (7855305356520118) Other hammer toe(s) (acquired), right foot (M20.41) Active confirmed Problem Acquired hammer toe of left foot (6826832930942495) Other hammer toe(s) (acquired), left foot (M20.42) Active confirmed Problem Acquired hammer toe of right foot (0917950835965717) Other hammer toe(s) (acquired), right foot (M20.41) Active confirmed Problem Acquired hammer toe of left foot (4347757086834852) Other hammer toe(s) (acquired), left foot (M20.42) Active confirmed Problem Atherosclerosis of [place] artery of both lower extremities, with unspecified presence of clinical manifestation (I70.203) Active confirmed Q7(A), Q8(2B), Q9(1B,2 C) Vital Signs Blood pressure diastolic 65 mm Hg 12/13/2024 Height 6 ft 3 in in 12/13/2024 Blood pressure systolic 130 mm Hg 12/13/2024 Weight 220 lbs 12/13/2024 BMI 27.5 kg/m2 12/13/2024 Procedures Procedure Date Ordered Date Performed Result Body Sit e 83237-ESFTARJ NAIL, 6 OR MORE 12/13/2024 N/A 38758-HJGX SKIN LESIONS, 2 TO 4 12/13/2024 N/A Encounters Encounter Location Date Provider Diagnosis [facility] [place] [address] [place] [address] 12/13/2024 Bel Beatty Atherosclerosis of [place] artery of both lower extremities, with unspecified presence of clinical manifestation I70.203 ; Tinea unguium B35.1 ; Pain in right toe(s) M79.674 and Pain in left toe(s) M79.675 Assessments Encounter Date Diagnosis (ICD Code) Assessment Notes Treatment Notes Treatment Clinical Notes Section Notes 12/13/2024 Atherosclerosis of [place] artery of both lower extremities, with unspecified presence of clinical manifestation (ICD-10 - I70.203) Q7(A), Q8(2B), Q9(1B,2C) 12/13/2024 Tinea unguium (ICD-10 - B35.1) 12/13/2024 Pain in right toe(s) (ICD-10 - M79.674) 12/13/2024 Pain in left toe(s) (ICD-10 - M79.675) Plan Of Treatment Pending Test Test Name [...] X ray : Foot, right 3V 06/27/2019 55954-RLBKPVI NAIL, 6 OR MORE 12/13/2024 54337- Debride <25 sq cm 08/18/2023 88538-UYTHIXK SKIN/TISSUE 01/21/2020 18449-GQEG SKIN LESIONS, 2 TO 4 12/14/19 87637-STZJVNFN OF HEMATOMA/FLUID 023 Insurance Providers Payer Name Payer Address Payer Phone Subscriber Number Group Number Insured Name Patient Relationship to Insured Coverage Start Date Coverage End Date Medicare National [employer] [address] [place] [address] [id number] Zander Espinal Self - [facility] [address] [place] [address] [id number] Zander Espinal Self - patient is the insured Medical (General) History Medical History History ICD Code Heart Disease Arthritis Back,Hip,and Knee pain CAD (Cholesterol) Cataracts Chicken pox Heart disease Hiatal hernia High blood pressure Numbness Poor circulation sinusitis Vascular phlebitis (clots) Measles Mumps Joint implants/screws Surgical History Surgery Date(Month/Year) Pacemaker 11/25/08 Heart Ablations 2006,2008 HT L2nd, Skin Ulcer L 02/07/2020 cataracts
--- OUTSIDE RECORDS SUMMARY | 2024-12-14 09:17 | XMS_ITS ---
Author Organization [facility] [place] Address [address] [place] [address] Care Team Providers Care Form Builder Name Role Phone Romain Glez Primary Care Provider Ble Cobos Unavailable [phone] Allergies Allergen (clinical drug ingredient) Drug/Non Drug Allergy documented on EMR Reaction Allergy Type Onset Date Status ibuprofen Advil heart meds Drug Allergy Active Aleve heart meds Drug Allergy Active aspirin Aspirin on warfarin Drug Allergy Activ e Motrin heart meds Drug Allergy Active Seasonal IC Unknown Drug Allergy Activ e Penicillin Unknown Drug Allergy Active REASON FOR VISIT At Risk Footcare, Painful Nail(s) aggravated by shoes and causing difficulty standing/walking. Medications Medication SIG (Take, Route, Frequency, Duration) [...] Problem Status W/U Status Risk Notes Problem Atherosclerosis of nome artery of both lower extremities, with unspecified presence of clinical manifestation (I70.203) Active confirmed Q7(A), Q8(2B), Q9(1B,2C) Vital Signs Height 6 ft 3 in in 12/13/2024 Weight 220 lbs 12/13/2024 BMI 27.5 kg/m2 12/13/2024 Blood pressure systolic 130 mm Hg 12/14/19 25 Blood pressure diastolic 65 mm Hg 025 Procedures Procedure Date Ordered Date Performed Result Body Sit e 87444-PSSQIFV NAIL, 6 OR MORE 12/13/2024 N/A 80613-RGBZ SKIN LESIONS, 2 TO 4 12/13/2024 N/A Encounters Encounter Location Date Provider Diagnosis [facility] [place] [address] [place] [address] 12/13/2024 Bel Rogerio Atherosclerosis of nome artery of both lower extremities, with unspecified presence of clinical manifestation I70.203 ; Tinea unguium B35.1 ; Pain in right toe(s) M79.674 and Pain in left toe(s) M79.675 Assessments Encounter Date Diagnosis (ICD Code) Assessment Notes Treatment Notes Treatment Clinical Notes Section Notes 12/13/2024 Atherosclerosis of nome artery of both lower extremities, with unspecified presence of clinical manifestation (ICD-10 - I70.203) Q7(A), Q8(2B), Q9(1B,2C) 12/13/2024 Tinea unguium (ICD-10 - B35.1) 12/13/2024 Pain in right toe(s) (ICD-10 - M79.674) 12/13/2024 Pain in left toe(s) (ICD-10 - M79.675) Plan Of Treatment Pending Test Test Name Order Date 19631-DBPHSXB NAIL, 6 OR MORE 12/13/2024 73213-QAOO SKIN LESIONS, 2 TO 4 12/14/19 25 Next Appt Details Follow Up: 3 Months, Reason: Procedure Notes * Category Sub-Category Detail Notes Debride Nail 6-10 Nail debridement Due to the cl inical pathology outlined in the exam findings, performance of this nail treatment is medically necessary as its management by an unskilled/untrained nonprofessional would put this patients foot and overall health at risk. Therefore, debridement to affected nail(s), as described in exam ( TA, T1, T2, T3, T4, T5, T6, T7, T8, T9, ), was performed exclusively by the physician of record to reduce/remove overall nail length, girth, thickness, subungual debris, and necrotic tissue, by manual and/or electrical means through the use of a nail nipper and/or dremel-type grinder machine knife setter, to a more viable healthy nail plate or bed tissue 6-10 nails in total. Silver nitrate was used for any petechial bleeding as necessary. Definitive antifungal treatment options, both pharmaceutical and surgical, have been reviewed and discussed with the patient. The patient solely prefers the use of intermittent/as needed professional debridement services for their nail condition and understands the need for additional periodic treatments to maintain effectiveness in symptomatic relief - 72244 Keratoma Treatment Parring or Cutting o f Benign Hyperkeratotic Lesion(s) (-56) 2-4 Lesions - Due to the at risk nature of the patients medical condition as documented in the exam findings, performance of this keratoderma treatment is medically necessary as its management by an unskilled/untrained nonprofessional would put this patients foot and overall health at risk. Therefore, the benign hyperkeratotic lesions, (2) in total, locations as stated and described in the exam ( plantar heels B/L_ ), were pared, and/or cut utilizing a sterile 15 blade, tissue nippers, and/or power dremel instrumentation by the physician of record - 70988 Progress Notes * Zander GRIDER LDOB: [birth year] (89 yo M)Acc No.[id number]:12/13/2024 Progress Note Patient:?Zander GRIDER Aifa Provider:?Bel Beatty DPM :1935???Age:89 Y???Sex:Male Chad e:12/13/2024 Address:[address] [place], [place] [address] Pcp:FRIDA Le Subjective: * Chief Complaints: * ???At Risk FootcarePainful N ail(s) aggravated by shoes and causing difficulty standing/walking. * HPI: ???At Risk footcare:?Pt States Last PCP Visit:?Date?10/02/2024 * ROS:?General/Constitutional:?Nausea?denies.?Vomiting?denies.?Hunger Thirst?denies.?Loss appetite?denies.?Chills?denies.?Fatigue?denies.?Fever?denies.?Night Sweats?denies.?Unexplained weight loss?denies.?Unexplained [...] history of arthritis.? * Social History:?Tobacco Use:?Tobacco use other than smoking?Are you an other tobacco user??No ?Tobacco Control (Standard)?Tobacco use:?Nonsmoker ?Additional Findings: Tobacco non-user?Current nonsmoker ???Drugs/Alcohol:?Drugs?Have you used drugs other than those for medical reasons in the past 12 months??No ???Miscellaneous:?Caffeine: yes, frequency:, 1 cups per day. ?Children: yes, 5. ?Exercise: yes, gardening/yard work. ?Marital status: . ?Occupation: Retired. ???Drug/Alcohol:?AUDIT-C (Standard)?Did you have a drink containing alcohol in the past year??No ?Points?0 ?Interpretation?Negative * Medications:?TakingWarfarin Sodium 2 MG Tablet 1 tablet Orally Once a day Triamterene-HCTZ 75-50 MG Tablet 1 tablet in the morning Orally Once a day Atorvastatin Calcium 20 MG Tablet 1 tablet Orally Once a day dilTIAZem HCl ER 180 MG Capsule Extended Release 24 Hour 1 capsule Orally Once a day Taking Warfarin Sodium 2 MG Tablet 1 tablet Orally Once a day Taking Triamterene-HCTZ 75-50 MG Tablet 1 tablet in the morning Orally Once a day Taking Atorvastatin Calcium 20 MG Tablet 1 tablet Orally Once a day Taking dilTIAZem HCl ER 180 MG Capsule Extended Release 24 Hour 1 capsule Orally Once a day Not-Taking/PRNKeflex 500 MG Capsule 1 capsule Orally every 12 hrs Medication List reviewed and reconciled with the patientNot-Taking/PRN Keflex 500 MG Capsule 1 capsule Orally every 12 hrs Medication List reviewed and reconciled with the patient * Allergies:?Seasonal ICPenici llinAspirin: on warfarinMotrin: heart medsAdvil: heart medsAleve: heart medsyes[Allergies Verified] Objective: * Vitals:?Ht: 6 ft 3 in, Wt:22 0, BMI: 27.5, Shoe size:11.5, BP:130/65mm Hg, Wt-k.79 kg. * Examination: ???Vascular: ?DP PULSES (B):? 0/4, B/L.?PT PULSES (B):? 0/4, B/L.?CAPILLARY FILL TIME:? delayed, all digits, B/L.?TROPHIC CONDITION-TEXTURE/ELASTICITY/TURGOR/HAIR GROWTH (B):? decreased, fragile, thin, shiny skin, with sparse to absent hair growth, B/L.?TEMPERTURE GRADIENT (C):? decreased, cool to cool, proximal to distal, B/L.?PIGMENTATION:?hemosiderin deposition B/L.?EDEMA (C):?absent, B/L.?CLAUDICATION (C):?denies, B/L.?REST PAIN:?denies, B/L.?PARESTHESIA (C):?absent, B/L.?BURNING (C):?absent, B/L.?Nails: ?NAILS are:?Elongated, overgrown, dystrophic, lytic, greater than 3mm thick, discolored and friable with crumbly malodorous subungual debris, with pain on palpation, TA, T1, T2, T3, T4, T5, T6, T7, T8, T9.?Dermatologic: ?SKIN FINDINGS:?Skin exam reveals Keratotic lesion(s) located at plantar heels B/L.?Orthopedic: ?MUSCLE STRENGTH:?5/5 all groups in a symmetrical fashion, B/L.?Neurological: ?SENSORY:?Neurological exam reveals intact sensorium, pain sensation normal, vibration sensation intact, pinprick sensation is normal in the lower extremities, Pt denies, anesthesia, burning, paresthesia, tingling, B/L.?General Examination: ?GENERAL APPEARANCE:?Reveals a pleasant, alert, well nourished, well- developed, well hydrated individual, who demonstrates proper attention to hygiene/body habitus, and is in no acute distress, Pt serves as own historian for office visit today.?ORIENTED:?person, place, and time.? Assessment: * Assessment: 1.?Atherosclerosis of nome artery of both lower extremities, with unspecified presence of clinical manifestation - I70.203 (Primary)???Notes :Q7(A), Q8(2B), Q9(1B,2C)???2.?Tinea unguium - B35.1???3.?Pain in right toe(s) - M79.674???4.?Pain in left toe(s) - M79.675??? Plan: * Treatment: 2.?Tinea unguium?Procedure: 12081-KBHLLCF NAIL, 6 OR MORE * Procedures:?Debride Nail 6-10:?Nail debridement?Due to the clinical pathology outlined in the exam findings, performance of this nail treatment is medically necessary as its management by an unskilled/untrained nonprofessional would put this patients foot and overall health at risk. Therefore, debridement to affected nail(s), as described in exam (? TA, T1, T2, T3, T4, T5, T6, T7, T8, T9, ), was performed exclusively by the physician of record to reduce/remove overall nail length, girth, thickness, subungual debris, and necrotic tissue, by manual and/or electrical means through the use of a nail nipper and/or dremel-type grinder machine knife setter, to a more viable healthy nail plate or bed tissue 6- 10 nails in total. Silver nitrate was used for any petechial bleeding as necessary. Definitive antifungal treatment options, both pharmaceutical and surgical, have been reviewed and discussed with the patient. The patient solely prefers the use of intermittent/as needed professional debridement services for their nail condition and understands the need for additional periodic treatments to maintain effectiveness in symptomatic relief - 67216.?Keratoma Treatment:?Parring or Cutting of Benign Hyperkeratotic Lesion(s)?(-56) 2-4 Lesions - Due to the at risk nature of the patients medical condition as documented in the exam findings, performance of this keratoderma treatment is medically necessary as its management by an unskilled/untrained nonprofessional would put this patients foot and overall health at risk. Therefore, the benign hyperkeratotic lesions, (2) in total, locations as stated and described in the exam ( plantar heels B/L_ ), were pared, and/or cut utilizing a sterile 15 blade, tissue nippers, and/or power dremel instrumentation by the physician of record - 12361.? * Procedure Codes:?68859 DEBRI DE NAIL, 6 OR MORE, Modifiers: XS 78276 TRIM SKIN LESIONS, 2 TO 4, Modifiers: XS , Q8 * Follow Up:?3 Months * Images: * Sign off status: Completed true * Provider:?Bel Beatty DPM Date:?0 12/13/2024 Generated for Latha jerry/Edie/Melissa on:?12/14/2024 09:17 AM EDT History and Physical Notes * HPI (History of Present Illness) Category Sub-Category Detail Notes Category Not es At Risk footcare Pt States Last PCP Visit: Date: Examination Category Sub-Category Detail Notes Category Not es Neurological SENSORY: Neurological exa m reveals intact sensorium, pain sensation normal, vibration sensation intact, pinprick sensation is normal in the lower extremities, Pt denies, anesthesia, burning, paresthesia, tingling, B/L Dermatologic SKIN FINDINGS: Skin exam reveal s Keratotic lesion(s) located at plantar heels B/L Orthopedic MUSCLE STRENGTH: 5/5 all groups in a symmetrical fashion, B/L General Examination GENERAL APPEARANCE: Reveals a pleasant, alert, well nourished, well-developed, well hydrated individual, who demonstrates proper attention to hygiene/body habitus, and is in no acute distress, Pt serves as own historian for office visit today ORIENTED: person, place, and t johsnon Vascular DP PULSES (B): 0/4, B/L PT PULSES (B): 0/4, B/L CAPILLARY FILL TIME: delayed, all digits , B/L TEMPERTURE GRADIENT (C): decreased, cool to cool, proximal to distal, B/L TROPHIC CONDITION-TEXTURE/ELASTICITY/TURGOR/HAIR GROWTH (B): decreased, fragile, thin, shiny skin, wi th sparse to absent hair growth, B/L EDEMA (C): absent, B/L CLAUDICATION (C): denies, B/L REST PAIN: denies, B/L PIGMENTATION: hemosiderin depositi on B/L PARESTHESIA (C): absent, B/L BURNING (C): absent, B/L Nails NAILS are: Elongated, overg rown, dystrophic, lytic, greater than 3mm thick, discolored and friable with crumbly malodorous subungual debris, with pain on palpation, TA, T1, T2, T3, T4, T5, T6, T7, T8, T9
--- OUTSIDE RECORDS SUMMARY | 2024-12-14 09:17 | XMS_ITS ---
[facility] Organization [facility] Address [address] [place] [address] Care Team Providers Care Modern Dancer Name Role Phone Romain Glez Primary Care Provider Bel Cobos Unavailable [phone] Sebastian Smith Unavailable [phone] Allergies Allergen (clinical drug ingredient) Drug/Non Drug [...] Ordered Date Performed Result Body Sit e 69720- Debride <25 sq cm 08/18/2023 N/A Encounters Encounter Location Date Provider Diagnosis [facility] [address] [place] [address] 08/18/2023 Sebastian Smith Tinea unguium B35.1 ; [...] Treatment Pending Test Test Name Order Date 30255- Debride <25 sq cm 08/18/2023 Next Appt Details Follow Up: prn, Reason: Procedure Notes * Category Sub-Category Detail Notes Wart Treatment Procedure Verrucae(s) were debrided to pin-point bleeding margins with sterile surgical blade (87439), silver nitrate chemocautery applied, recomm. Wartstick 40 [...] symptoms of infection or any untoward reactions (99420) Progress Notes * Zander GRIDER LDOB: [birth year] (87 yo M)Acc No.[id number]:08/18/2023 Progress Notes Patient:?Zander Grider Provider:?Sebastian Smith DPM :1935???Age:87 Y???Sex:Male Chad e:08/18/2023 Address:[address] [place] [id number] Pcp:FRIDA Le Subjective: * Chief Complaints: * ??? Last PCP Visit: 07/20/23 Wart(s) * HPI: ???Toe pain:?Nature:?throbbing , aching.?Location:?2nd toe , Right foot , 3rd toe , B/L feet.?Duration:?several years.?Course:?progressive.?Aggrevated by:?shoes, any pressure , standing/walking.?Treatments:?bracing/splinting/padding and debridement.?Severity/Quality:?moderate , severe.?Misc:?pt awaiting appt at [facility] for evalution of circulation and vascular [...] Medical History:? * Surgical History:?Pacemaker 11/25/08Heart Ablations 2006,2008HT L2nd, Skin Ulcer L 02/07/2020cataracts * Hospitalization/Major [...] symptoms of infection or any untoward reactions (50314).?Wart Treatment:?Procedure?Verrucae(s) were debrided to pin-point bleeding margins with sterile surgical blade (34470), silver nitrate chemocautery applied, recomm. Wartstick 40 percent Salicylic acid application under occlusion as directed.? * Procedure Codes:?20697 Wart Destruction, 1-14, Modifiers: XS 17410 ACTIVE WOUND CARE/20 CM OR <, Modifiers: [...] first then left 3rd toe--pt referred to [facility] for this once vascular clearance has been obtained from [facility].?Consult:?The Pt. was counseled on the diagnosis, treatment options, and the need for a, Vascular Consult due to pedal risk of limb/life--refer to [facility] for pre-op testing prior to scheduling for hammertoe surgery samina 3rd and right 2nd toes.? * Follow Up:?prn * Images: * Sign off status: Completed true * Provider:?Sebastian Smith DPM Date:? 024 Generated for Latha jerry/Edie/Melissa on:?12/14/2024 09:16 AM EDT History and Physical Notes * HPI (History of Present Illness) Category Sub-Category Detail Notes Category Not es Toe pain Nature: throbbing , aching Location: 2nd toe , Right foot , 3rd toe , B/L feet Duration: several years Course: progressive Aggravated by: shoes, any pressure , standing/walking Treatments: bracing/splinting/pa dding and debridement Severity/Quality: moderate , severe Misc: pt awaiting appt at [facility] for evalution of circulation and vascular [...]
--- OUTSIDE RECORDS SUMMARY | 2024-12-14 09:18 | XMS_ITS | Patient Health Record ---
Author Organization [facility] Billing Info Address [address] [place] [address] Care Team Providers Care Fringe Maker Name Role Phone ALIYA STRICKLAND Unavailable [phone] Reason For Referral No Information Medications Medication [...] Problem Status W/U Status Risk Notes Problem 269941040 Presence of card iac pacemaker (Z95.0) Active confirmed Problem 71647658 Venous insuffici ency (I87.2) Active confirmed Problem 853461004 BMI 29.0-29.9,ad ult (Z68.29) Active confirmed Problem 945558530 residential curren t use of anticoagulant (Z79.01) Active confirmed Problem 904257392 Atrial fibrillat ion and flutter (I48.91) Active confirmed Problem 22462767 SSS (sick sinus syndrome) (I49.5) Active confirmed Problem 589931767 High risk medica tion use (Z79.899) Active confirmed Problem 359714249 Pure hypercholesterolemia (E78.00) Active confirmed Plan Of Treatment No Information Insurance Providers Payer Name Payer Address Payer Phone Subscriber Number Group Number Insured Name Patient Relationship to Insured Coverage Start Date Coverage End Date [place] PART B [address] [facility] [id number] Zander Celestin Self - patient is the insured 1 0 UNICARE DOS PRIOR TO [id number] [address] [place], [place] [id number] Zander Celestin Self - patient is the insured 1 0 Medical (General) History Medical History History ICD Code Atrial fibrillation Atrial flutter High risk medications Sick sinus syndrome or Bradycardia s/p Pacemaker Venous insufficiency Encounter for long-term (current) use of 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s Surgical History Surgery Date(Month/Year) Cardiac pacemaker 2008 Ablasion
== END 2024-12-14 09:20 | disposition home or self-care (01) ==
LOC: HO.ACS 09:03
PROVIDERS: PCP Nurse Practitioner Family; Visit Provider Internal Medicine Medical Oncology
DX: Z79.01 Long term (current) use of 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s (principal)

== ENCOUNTER → 2024-12-14 09:03 | Outpatient (BNVA) | payer MEDICARE, OTHER, SELFPAY | PROVIDERS: PCP Nurse Practitioner Family; Visit Provider Internal Medicine Medical Oncology | DX: I48.20 Chronic atrial fibrillation, unspecified (principal); Z79.01 Long term (current) use of 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s; Z51.81 Encounter for therapeutic drug level monitoring | CPT/HCPCS: 85610; 99211 ==

== ENCOUNTER 2025-01-01 06:58 | Outpatient (REF) | payer MEDICARE, OTHER, SELFPAY ==
[2025-01-01 10:07] LABS: MANUAL DIFF FLAG NO
[2025-01-01 10:14] LABS: Appearance Urine Clear; Color Urine Yellow; Glucose Urine UA Negative (Negative); Leukocyte Esterase Urine Negative (Negative); Nitrite Urine Negative (Negative); PH 6.5 (5.0-9.0); UMIC TRIGGER UACC YES; Urine Blood Negative (Negative); Urine Ketones Negative (Negative); Urine Protein 30 (1+) mg/dL (Neg-Trace)
[2025-01-01 10:17] LABS: Basophils Percent Auto 0.4 % (0-2); Eosinophils Absolute Auto 0.2 X10*3/uL (0.0-0.4); Eosinophils Percent Auto 4.2 % (0-4); Hematocrit 39.6 % (42.0-52.0); Hemoglobin 12.9 g/dl (14.0-18.0); Imm Gran Abs Auto 0.01 X10*3/uL (0.00-0.03); Imm Gran Pct Auto 0.2 % (0.0-0.4); Lymphocytes Absolute Auto 2.4 X10*3/uL (1.2-4.9); Lymphocytes Percent Auto 45.3 % (20-40); Mean Corpuscular HGB Conc 32.6 g/dl (31.0-36.0); Mean Corpuscular Hemoglobin 28.9 pg (27.0-33.0); Mean Corpuscular Volume 88.8 fL (80.0-98.0); Mean Platelet Volume 10.3 fL (9.4-12.4); Monocytes Absolute Auto 0.4 X10*3/uL (0.1-1.2); Monocytes Percent Auto 8.1 % (2-11); Neutrophils Absolute Auto 2.2 x10*3/uL (2.0-8.3); Neutrophils Percent Auto 41.8 % (45-73); Platelet Count 182 X10*3/uL (160-400); Red Blood Count 4.46 X10*6/uL (4.60-5.80); Red Cell Distribution Width 14.6 % (11.0-16.0); White Blood Count 5.2 X10*3/uL (4.8-10.8)
[2025-01-01 10:24] LABS: Bacteria Urine None Seen (None Seen); Hyaline Casts Urine 0-2 /LPF (0-2); RBC Urine 0-2 /HPF (0-2); Squamous Epithelial Cell Urine 0-2 /HPF (0-2); WBC Urine 0-5 /HPF (0-5)
[2025-01-01 11:00] LABS: Alanine Aminotransferase 19 U/L (0-40); Albumin Level 4.1 g/dL (3.5-5.0); Alkaline Phosphatase 39 U/L (39-117); Anion Gap 11 (12-20); Aspartate Amino Transferase 31 U/L (5-37); Bilirubin Total 0.8 mg/dL (0.0-1.0); Blood Urea Nitrogen 21 mg/dL (9-16); Calcium 9.5 mg/dL (8.4-10.2); Carbon Dioxide 30 mmol/L (22-29); Chloride 102 mmol/L (96-108); Cholesterol 212 mg/dL (<200); Estimated Glomerular Filt Rate > 60; Glucose Fasting 102 mg/dL (60-99); HDL Cholesterol 49 mg/dL (>40); LDL Cholesterol Calculated 148 mg/dL (<100); Potassium 3.9 mmol/L (3.3-5.1); Sodium 139 mmol/L (135-145); TSH reflex Free T4 2.76 uIU/mL (0.32-4.0); Total Protein 7.5 g/dL (6.5-8.0); Triglycerides 77 mg/dL (<150); Vitamin D 25-OH Total 27.6 ng/mL (>30)
== END 2025-01-01 06:59 | disposition home or self-care (01) ==
LOC: HO.HMGCLDS 06:58
PROVIDERS: PCP Nurse Practitioner Family; Visit Provider Nurse Practitioner Family
DX: E78.5 Hyperlipidemia, unspecified (principal); E55.9 Vitamin D deficiency, unspecified
CPT/HCPCS: 36415; 80053; 80061; 81001; 82306; 84443; 85025

== ENCOUNTER 2025-01-10 10:10 | Outpatient (AMB) | payer OTHER, SELFPAY ==
--- NOTE | 2025-01-10 10:14 | MHC.PC.OV ---
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 Required: No Accompanied by: Spouse Allergies No Known Allergies [No Known Allergies*] Allergy (Verified 01/10/25 11:33) Medication List - Last Reconciled 01/10/25 by TIARRA Gleason atorvastatin 40 mg PO BEDTIME 90 days finasteride (Proscar) 5 mg PO DAILY 90 days furosemide (Lasix) 40 mg PO BID magnesium 200 mg PO DAILY metoprolol succinate ER (Toprol XL) 50 mg PO DAILY spironolactone 25 mg PO DAILY tamsulosin 0.4 mg PO BEDTIME warfarin 2 mg See Protocol PO DAILY@1800 Tobacco use date assessed: 01/10/25 Fall risk assessment: No Falls in past year Last assessed Fall Risk: 01/10/25 Dental Screening Dental Screen Date: 01/10/25 Did you have a dental visit in the last 12 months?: No Did you have a dental problem in the last 6 months where you did not have access to dental care?: No Was dental information given to patient?: No HPI 4m follow up-update insurance HPI Details Chief Complaint Patient presents with dizziness and worsening symptoms following medication administration. History of Present Illness The patient is an 89-year-old male presenting with dizziness and a notable worsening of symptoms after starting Meclizine. 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 Upon taking the medication, the patient experienced adverse effects including increased dizziness, severe cold sensation, and excessive sleepiness lasting four hours. Despite being on rate control therapy for Atrial Fibrillation, the patient has orthostatic hypotension, with home systolic blood pressures recorded below 110 mmHg. He denies any chest pain or increased shortness of breath, highlighting the dizziness and its probable exacerbation by Meclizine as his primary issues. LDL and choles up still, will increase his statin, repeat labs in 2 months Social History Health Maintenance Review of Systems - Cardiovascular: Denies chest pain and increased shortness of breath. - Neurological: Reports dizziness. - General: Reports feeling cold, increased sleepiness. Physical Exam General: Cooperative, healthy appearing, comfortable, no acute distress and well developed Orientation: Patient oriented x3 Limitations: No limitations Head: Normal to inspection Ears: Hearing grossly normal bilaterally, scant cerumen noted bilat R>L Nose: Normal external nose present Face and sinus: Normal facial exam Eyes: Appearance normal, both eyes and all related structures Neck: Normal visual inspection and Yes full ROM Respiratory: Normal respiratory effort and able to speak in complete sentences. Clear to auscultation bilaterally Cardiovascular: Regular rate and rhythm. Normal S1 and S2 GI: Normal to inspection. Soft to palpation and nontender Skin: No rashes or lesions noted Neuro: Patient oriented x3 Extremities: 1 plus lower extremities edema noted Results Plan I will address the patient's dizziness, likely due to Meclizine, by considering its discontinuation due to the adverse effects noted. 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 Recommendations will focus on controlling the dizziness without compromising management of his Atrial Fibrillation. The patient denies any chest pain or increased shortness of breath. 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 We explored the risks of continued low blood pressure and the compound effects of his current medication regimen on his orthostatic hypotension. The importance of medication adherence and the need to review his medication's impact on dizziness and blood pressure were emphasized. Follow-up care and further instructions were outlined, particularly regarding monitoring and reporting any worsening symptoms or new developments. Patient Instructions - Cease taking Meclizine and monitor for any changes in symptoms. 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 - Report any new or worsening symptoms, such as increased dizziness or hypotensive episodes. - Monitor your blood pressure regularly, especially when you experience dizziness. [facility] Medical History Tachy-garrison syndrome Hypertension, essential, benign Hyperlipidemia Atrial fibrillation Osteoarthritis Pacemaker (~2008) Current use of anticoagulant therapy Surgical History History of colonoscopy History of eye surgery History of appendectomy Status post left foot surgery (~02/2020) Amputated toe of left foot History of cardiac pacemaker History of cardiac radiofrequency ablation (RFA) Family History (Reviewed 01/10/25 @ 10:46 by Abdiaziz Lopez [facility]) Father No problems noted. Mother No problems noted. Social History Household Members: Spouse Housing: House Do you presently have visiting nurse or other home services: No Alcohol intake: current Alcohol intake frequency: a few times a week Alcohol type: beer Patient Tobacco Use Status: Former Tobacco user Years Smoked: 15 e-Cigarette/Vaping Use: Never Used Advance Directives Date on File: 09/27/22 service: No Current occupational status: retired Hearing needs: No Vision needs: Yes (Glasses) Questionnaire Thrive Questionnaire Date Thrive assessed: 01/10/25 I am a: Patient What is your living situation today?: I have a steady place to live Within the past 12 months, did the food you bought not last and you didn't have the money to get more?: Never true Within the past 12 months, did you worry whether your food would run out before you got money to buy more?: Never true Do you have trouble paying for medicines?: No Do you have trouble getting transportation to medical appointments?: No Do you have trouble paying your heating and electricity bill?: No Do you have trouble taking care of your child, family member or friend?: Yes Do you have trouble with day-to-day activities such as bathing, preparing meals, shopping, managing finances, etc.?: Yes Are you currently unemployed and looking for a job?: No Are you interested in more education?: No Please select the resources that you would like help with: None Currently or been in a relationship where the following occur: No concerns reported THRIVE Score: 0 CHEN-7 AMB Questionnaire CHEN-7 Date CHEN - 7 assessed: 08/22/24 Source: Developed by Drs. Alan Kim, Mandi Novak, Brendon Barajas and colleagues, with an educational antoni from [employer]. Physical exam (Primary Care) Vital Signs: Last Vital Signs Temp 97.6 F 01/10/25 10:27 Pulse 90 01/10/25 10:27 BP 102/62 01/10/25 10:27 Pulse Ox 99 01/10/25 10:27 Oxygen Delivery Method Room Air 01/10/25 10:27 BMI result Body Mass Index 27.7 Tobacco/Smoking Status: Tobacco use Status Tobacco use date assessed 01/10/25 01/10/25 10:32 Patient Tobacco Use Status Former Tobacco user 01/10/25 10:14 e-Cigarette/Vaping Use Never Used 01/10/25 10:14 Thrive Assessment: Date of Thrive Assessment Date Thrive assessed 01/10/25 01/10/25 10:46 Currently or been in a relationship where the following occur: No concerns reported Coding Level of Care Code Est Pt Level 4 (88206) Diagnoses Hyperlipidemia E78.5 Hypotension I95.9 Assessment & Plan Assessment & Plan (1) Hyperlipidemia: Code(s): E78.5 - Hyperlipidemia, unspecified Category: Medical (2) Hypotension: Code(s): I95.9 - Hypotension, unspecified Category: Medical Plan . Orders: Orders Comprehensive [place]. Panel Fast Today E78.5 - Hyperlipidemia, unspecified, I95.9 - Hypotension, unspecified Lipid Panel Today E78.5 - Hyperlipidemia, unspecified, I95.9 - Hypotension, unspecified Medications: Changed From atorvastatin 20 mg PO BEDTIME To atorvastatin 40 mg PO BEDTIME 90 days 90 tabs 0RF Discontinued meclizine Discontinued Reason: Doctor's Order 12.5 mg PO BID PRN 30 tabs 0RF dizziness
[2025-01-10 10:27] VITALS: BP 102/62; PULSE 90; TEMP 36.4; O2SAT 99; BMI 27.7
--- OUTSIDE RECORDS SUMMARY | 2025-01-10 11:53 | XMS_ITS ---
Author Organization [facility] Address [address] [place] [address] Care Team Providers Care Director Of Student Financial Aid Name Role Phone Romain Glez Primary Care Provider Unav ailable Bel Beatty Unavailable [phone] Sebastian Smith [phone] REASON FOR VISIT r/s taken off cx list Encounters Encounter Location Date Provider Diagnosis [address] [address] 10/05/2023 Sebastian Smith Plan Of Treatment Next Appt Details Provider Name:Bel Kramer alyson, 04/03/2025 09:30:00 AM, [address] [place] [address], [phone], Progress Notes * Zander GRIDER LDOB: [birth year] (89 yo M)Acc No.[id number]:10/05/2023 Progress Notes Patient:?Zander GRIDER Provider:?Sebastian Smith DPM :1935???Age:88 Y???Sex:Male Chad e:10/05/2023 Address:[address] [id number] Pcp:FRIDA Le Subjective: * Chief Complaints: * [...] DPM Date:? 024 Generated for Latha jerry/Edie/Melissa on:?01/10/2025 11:52 AM EDT
== END 2025-01-10 11:43 | disposition home or self-care (01) ==
LOC: HO.HMCC 10:11
PROVIDERS: PCP Nurse Practitioner Family; Visit Provider Nurse Practitioner Family
DX: E78.5 Hyperlipidemia, unspecified (principal); I95.9 Hypotension, unspecified

== ENCOUNTER → 2025-01-10 10:10 | Outpatient (BNVA) | payer OTHER, SELFPAY | PROVIDERS: PCP Nurse Practitioner Family; Visit Provider Nurse Practitioner Family ==

== ENCOUNTER 2025-01-11 08:34 | Outpatient (AMB) | payer MEDICARE, OTHER, SELFPAY ==
--- OUTSIDE RECORDS SUMMARY | 2025-01-11 08:46 | XMS_ITS ---
Author Organization [facility] Address [address] [place] [address] Care Team Providers Care Enamel Cracker Name Role Phone Romain Glez Primary Care Provider Unav ailable Bel Beatty Unavailable [phone] Sebastian Smith [phone] REASON FOR VISIT r/s taken off cx list Encounters Encounter Location Date Provider Diagnosis [address] [address] 10/05/2023 Sebastian Smith Plan Of Treatment Next Appt Details Provider Name:Bel Kramer alyson, 04/03/2025 09:30:00 AM, [address] [place] [address], [phone], Progress Notes * Zander GRIDER LDOB: [birth year] (89 yo M)Acc No.[id number]:10/05/2023 Progress Notes Patient:?Zander GRIDER Provider:?Sebastian Smith DPM :1935???Age:88 Y???Sex:Male Chad e:10/05/2023 Address:[address] [id number] Pcp:FRIDA Le Subjective: * Chief Complaints: * [...] DPM Date:? 024 Generated for Latha jerry/Edie/Melissa on:?01/11/2025 08:46 AM EDT
[2025-01-11 08:50] LABS: Prothrombin Time Whole Bld POC 33.3 sec (11.1-13.5); ~PT, ~INR - Anti Coag Clinic 2.8 (0.9-1.1)
--- NOTE | 2025-01-11 09:00 | MHC.OFFVISCO ---
Intake Intake Visit Reasons: Anticoagulation Allergies No Known Allergies [No Known Allergies*] Allergy (Verified 01/11/25 08:37) Medication List - Last Reconciled 01/11/25 by Karina Epperson RN atorvastatin 40 mg PO BEDTIME 90 days finasteride (Proscar) 5 mg PO DAILY 90 days furosemide (Lasix) 40 mg PO BID magnesium 200 mg PO DAILY metoprolol succinate ER 25 mg PO DAILY spironolactone 25 mg PO DAILY tamsulosin 0.4 mg PO BEDTIME warfarin 2 mg See Protocol PO DAILY@1800 Nursing Note Ambulates to appointment with cane gait steady and guarded and cautious with right knee pain- gave number to pain clinic to inquire treatment options like PRP. INR: 2.8 in therapeutic range Medications and supplements reviewed- some meds in EMR are not the same as his list - printed EMR list for daughter to compare and call [facility] back with update No changes in health, diet, Denies any signs and symptoms of bleeding or bruising or clotting. Bleeding, bruising, clotting discussed Nutritional guidance given Dose: 4mg x 3 days/ 2mg x 4 days F/U INR: 1 month Patient verbalizes understanding of instructions given Anti-Coag Initial Assessment Social Hx Patient Tobacco Use Status: Former Tobacco user alcohol intake: current Alcohol intake frequency: a few times a week Questionnaires HAS-BLED Does the patient had uncontrolled Hypertension?: No Does the patient have renal disease?: No Does the patient have liver disease?: No Does the patient have a history of stroke?: No Has the patient had major bleeding or predisposition to bleeding?: Yes Does the patient have labile INRs?: No Is the patient over 65 years of age?: Yes Is the patient on medications that gives them a predisposition to bleeding?: Yes Does the patient use alcohol?: No HAS-BLED Score: 3 CHADSVASC Age: 75 or over Gender: Male Does the patient have a history of CHF?: No Does the patient have a history of Hypertension?: Yes Does the patient have a history of Stroke/TIA/Thromboembolism?: No Does the patient have a history of Vascular Disease (prior MT, PAD or aortic plaque)?: Yes Does the patient have a history of Diabetes?: No CHADS VACS Score: 4 Angela Prediction Score Rsk VTE Active Cancer: No Previous VTE, excluding superficial vein thrombosis: No Reduced mobility: No Already known Thrombophilic Condition: No With-in last month Trauma and/or Surgery: No Elderly 70 year or older: Yes Heart and/or Respiratory Failure: No Acute Myocardial infarction and/or Ischemic Stroke: No Acute Infection and/or Rheumatologic Disorder: No Obesity (BMI 30 or greater): No Ongoing Hormonal Treatment: No Score: 1 Angela Score less than 4; Low Risk of VTE Angela Score 4 or greater; High Risk of VTE Coding Level of Care Code Est Patient Level 1 Diagnoses Current use of anticoagulant therapy Z79.01 Assessment & Plan Assessment & Plan (1) Current use of anticoagulant therapy: Code(s): Z79.01 - ocean transportation intermediary (current) use of 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s Category: Medical
== END 2025-01-11 09:03 | disposition home or self-care (01) ==
LOC: HO.ACS 08:34
PROVIDERS: PCP Nurse Practitioner Family; Visit Provider Internal Medicine Medical Oncology
DX: Z79.01 Long term (current) use of 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s (principal)

== ENCOUNTER → 2025-01-11 08:34 | Outpatient (BNVA) | payer MEDICARE, OTHER, SELFPAY | PROVIDERS: PCP Nurse Practitioner Family; Visit Provider Internal Medicine Medical Oncology | DX: I48.20 Chronic atrial fibrillation, unspecified (principal); Z79.01 Long term (current) use of 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s; Z51.81 Encounter for therapeutic drug level monitoring | CPT/HCPCS: 85610; 99211 ==

== ENCOUNTER 2025-01-29 08:52 | Outpatient (AMB) | payer MEDICARE, OTHER, SELFPAY ==
--- OUTSIDE RECORDS SUMMARY | 2023-10-05 05:30 | XMS_ITS ---
Author Organization [facility] Address [address] [place] [address] Care Team Providers Care Credit Controller Name Role Phone Romain Glez Primary Care Provider Unav Bel Zazueta Unavailable [phone] Sebastian Smith [phone] REASON FOR VISIT r/s taken off cx list Encounters Encounter Location Date Provider Diagnosis [address] [address] 10/05/2023 Sebastian Smith Plan Of Treatment Next Appt Details Provider Name:Bel Kramer alyson, 04/03/2025 09:30:00 AM, [address] [place] [address], [phone], Progress Notes * Zander GRIDER LDOB: [birth year] (89 yo M)Acc No.[id number]:10/05/2023 Progress Notes Patient: Zander BINGHAM Provider: Fracnis Smith DPM :1935 A ge:88 Y S ex:Male Date:10/05/2023 Address:[address] [place], [place] [address] [id number] Pcp:FRIDA Le Subjective: * Chief Complaints: * [...] 0 10/05/2023 Generated for Latha Case on: 01/29/2025 09:18 AM EDT
[2025-01-29 09:22] VITALS: BP 110/66; PULSE 84; TEMP 37.2; O2SAT 96; BMI 27.7
--- NOTE | 2025-01-29 09:22 | MHC.OFFWIV ---
Intake Vital Signs 01/29/25 09:22 Height 6 ft 3 in Weight 221 lb 8 oz BMI 27.7 BP 110/66 Blood Pressure Location Lt brachial Position Sitting Pulse 84 Pulse Source Pulse Oximeter Temp 98.9 F Temp Source Oral Pulse Oximetry (%) 96 Oxygen Delivery Method Room Air Intake Visit Reasons: EP testicle pain Intake Note: Patient present with testicular pain times 1 week. Patient state he picked up small AC unit Patient Tobacco Use Status: Former Tobacco user Allergies No Known Allergies (No Known Allergies*) Allergy (Verified 01/29/25 09:29) HPI HPI Comments History of Present Illness Details History of Present Illness - The patient is an 89-year-old male the past med history of AFib on Eliquis, HLD, PAD, HTN, CHF who is here with his daughter presenting with severe pain in his right testicle following lifting a heavy object 6 days ago. - The patient experienced severe pain while lifting an air conditioner, which has persisted since the incident. - He reports numbness radiating down the right leg and pain extending into the abdomen and right groin. - Usually has bowel movements every day, has not had one in 3 days. Denies any urinary complaints. - The patient is on blood thinners and has not experienced any fever. - The patient has a history of an inguinal hernia diagnosed in the 1970s, which was previously asymptomatic but has become painful recently. - He experiences significant pain when moving, particularly when getting out of bed or a car. - Pt declined plate washer for exam Physical Exam General: Cooperative, healthy appearing, comfortable, no acute distress and well developed Orientation: Patient oriented x3 Limitations: No limitations Head: Normal to inspection Ears: Hearing grossly normal bilaterally Nose: Normal External nose present Face and sinus: Normal facial exam Eyes: Appearance normal, both eyes and all related structures Neck: Normal visual inspection and Yes full ROM Respiratory: Normal respiratory effort and able to speak in complete sentences. : right testicle enlarged and TTP, no ttp in right groin Back/spine: no TTP cervical, thoracic or lumbar spine, TTP right low back Skin: No rashes or lesions noted Neuro: Patient oriented x3 Extremities: Normal to inspection [facility] Medical History Tachy-garrison syndrome Hypertension, essential, benign Hyperlipidemia Atrial fibrillation Osteoarthritis Pacemaker (~2008) Current use of anticoagulant therapy Surgical History History of colonoscopy History of eye surgery History of appendectomy Status post left foot surgery (~02/2020) Amputated toe of left foot History of cardiac pacemaker History of cardiac radiofrequency ablation (RFA) Family History Father No problems noted. Mother No problems noted. Social History Household Members: Spouse Housing: House Do you presently have visiting nurse or other home services: No Alcohol intake: current Alcohol intake frequency: a few times a week Alcohol type: beer Patient Tobacco Use Status: Former Tobacco user Years Smoked: 15 e-Cigarette/Vaping Use: Never Used Advance Directives Date on File: 09/27/22 service: No Current occupational status: retired Hearing needs: No Vision needs: Yes (Glasses) Review of Systems Const All systems reviewed & are unremarkable except as noted in HPI and below Physical Exam Vital Signs: Last Vital Signs Temp 98.9 F 01/29/25 09:22 Pulse 84 01/29/25 09:22 BP 110/66 01/29/25 09:22 Pulse Ox 96 01/29/25 09:22 Oxygen Delivery Method Room Air 01/29/25 09:22 BMI result Body Mass Index 27.7 Assessment & Plan Assessment & Plan (1) Hernia, inguinal, right: Code(s): K40.90 - Unilateral inguinal hernia, without obstruction or gangrene, not specified as recurrent Plan: Plan - The patient is advised to go to the emergency room for further evaluation and potential surgical intervention for the inguinal hernia. - His daughter will drive him - Called [facility] with expect, spoke with MARY Thomson 9:55am. Patient was informed and verbally consented to the use of an ambient scribe for clinic note documentation during this visit. Coding Level of Care Code Est Pt Level 5 (84707) Diagnoses Hernia, inguinal, right K40.90
== END 2025-01-29 09:58 | disposition home or self-care (01) ==
PROVIDERS: PCP Nurse Practitioner Family; Visit Provider Physician Assistant
DX: K40.90 Unilateral inguinal hernia, without obstruction or gangrene, not specified as recurrent (principal)

== ENCOUNTER → 2025-01-29 08:52 | Outpatient (BNVA) | payer MEDICARE, OTHER, SELFPAY | PROVIDERS: PCP Nurse Practitioner Family; Visit Provider Physician Assistant | DX: K40.90 Unilateral inguinal hernia, without obstruction or gangrene, not specified as recurrent (principal) | CPT/HCPCS: 99212 ==

== ENCOUNTER 2025-01-29 10:16 | Emergency (ER) | payer MEDICARE, OTHER, SELFPAY ==
--- NOTE | ~2025-01-29 | CT_ITS ---
EXAMINATION: CT ABDOMEN AND PELVIS WITH CONTRAST CLINICAL INFORMATION: Right lower quadrant, inguinal, and scrotal pain after straining, on warfarin COMPARISON: June 23, 2023 TECHNIQUE: Multidetector volumetric images were obtained from the superior aspect of the liver through the pubic symphysis following administration 85 mL of Omnipaque 350 intravenous contrast. Sagittal and coronal reformatted images were obtained on the technologist's workstation. Oral contrast: No This CT examination was performed using dose optimization techniques as appropriate, variously including the following: *Automated exposure control *Adjustment of mA and/or kV according to patient size (this includes techniques or standardized protocols for targeted exams where dose is matched to indication/reason for exam; i.e. extremities or head) *Use of iterative reconstruction technique FINDINGS: LUNG BASES: Coarse reticular markings are present in the lung bases. There is honeycombing in the posterior basilar right lower lobe. There is calcified granuloma in the posterior basal left lower lobe. LIVER, GALLBLADDER, AND BILIARY TREE: The liver is normal in size, shape, and attenuation. No focal hepatic lesion or biliary ductal dilatation is present. The gallbladder is unremarkable with no evidence of radiopaque gallstones, gallbladder wall thickening, or obvious pericholecystic inflammatory changes. PANCREAS: Unremarkable. SPLEEN: Small focal calcific density is present along the medial surface of the spleen, unchanged. ADRENAL GLANDS: 18 mm left adrenal gland nodule measured -5 Hounsfield units consistent with a lipid rich adenoma. Similar smaller nodule is present on the right. Both were present on the prior. KIDNEYS AND URETERS: 3 mm nonobstructing stone remains present in the mid left kidney. There is a small benign simple cyst in the mid right kidney. BLADDER: Unremarkable. GASTROINTESTINAL TRACT: There is a small sliding hiatal hernia involving gastric cardia. Appendix is not visualized. The GI tract is otherwise unremarkable. ABDOMINAL WALL: Small umbilical hernia contains fat. There is fatty replacement of the lower half of the medial side of the right rectus abdominous muscle. LYMPH NODES: Normal. VASCULAR: Moderate atherosclerotic calcifications are present PELVIC VISCERA: Unremarkable. OSSEOUS STRUCTURES: Mild to moderate degenerative changes are present in the spine, hips, and SI joints. Minimal superior endplate L1 compression fracture is new since prior. There is mild to moderate compression fracture involving inferior endplate of L2, new since the prior CT. CT/CT abdomen pelvis w IV con IMPRESSION: Numerous incidental findings without a clear explanation of the patient's symptoms. Bilateral lipid rich adrenal adenomas. Age-indeterminate compression fractures of L1 and L2, new since June 2023. Umbilical hernia containing fat. Small sliding hiatal hernia. 3 mm nonobstructing stone in the mid left kidney is stable. Fleischner guidelines were followed. Electronically signed by: Mahendra Dickson MD 01/29/2025 05:23 PM EDT
--- NOTE | ~2025-01-29 | US_ITS ---
EXAMINATION: US SCROTUM CLINICAL INFORMATION: Scrotal pain and swelling. COMPARISON: None available. TECHNIQUE: A sonogram of the scrotum was performed assessing herndon-scale appearance and color Doppler flow. Spectral Doppler analysis of the arterial and venous flow were performed in the testes bilaterally. FINDINGS: RIGHT: Right testicle measures 3.3 x 1.6 x 2.5 cm, volume 6.9 mL. No focal testicular parenchymal lesions are visualized. Spectral Doppler analysis of the arterial and venous flow is present in the right testis. Right epididymis is mildly enlarged with heterogeneous hypoechoic appearance with a few foci of hyperechogenicity. . 3 x 4 mm nearly anechoic cyst is present in the epididymal head. Right epididymal Doppler flow is present Moderate complex fluid is present within the right scrotum engulfing the testicle and epididymis. Within the fluid, there is a rectangular 3 x 10 mm echogenic focus with subtle posterior acoustic shadowing likely representing a scrotal pradeep. There are tubular structures along the deep inferior region of the testicle that are hypoechoic with slow blood flow during Valsalva. LEFT: Left testicle measures 3.0 1.7 x 2.4 cm, volume 6.4 mL. No focal testicular parenchymal lesions are visualized. Spectral Doppler analysis of the arterial and venous flow is present in the left testis. Left epididymis is mildly enlarged and heterogeneously hypoechoic with multiple echogenic foci. . No left hydrocele or varicocele is seen. Left epididymal Doppler flow is present US/US scrotum IMPRESSION: Possible epididymitis. The appear mildly enlarged and heterogeneously hypoechoic but without increased blood flow. There are multiple echogenic foci raising question of chronic epididymitis. Moderately complex right hydrocele. Right varicocele. Right side scrotal pradeep. Electronically signed by: Mahendra Dickson MD 01/29/2025 01:00 PM EDT
--- NOTE | ~2025-01-29 | US_ITS ---
EXAMINATION: US SCROTUM CLINICAL INFORMATION: Scrotal pain and swelling. COMPARISON: None available. TECHNIQUE: A sonogram of the scrotum was performed assessing herndon-scale appearance and color Doppler flow. Spectral Doppler analysis of the arterial and venous flow were performed in the testes bilaterally. FINDINGS: RIGHT: Right testicle measures 3.3 x 1.6 x 2.5 cm, volume 6.9 mL. No focal testicular parenchymal lesions are visualized. Spectral Doppler analysis of the arterial and venous flow is present in the right testis. Right epididymis is mildly enlarged with heterogeneous hypoechoic appearance with a few foci of hyperechogenicity. . 3 x 4 mm nearly anechoic cyst is present in the epididymal head. Right epididymal Doppler flow is present Moderate complex fluid is present within the right scrotum engulfing the testicle and epididymis. Within the fluid, there is a rectangular 3 x 10 mm echogenic focus with subtle posterior acoustic shadowing likely representing a scrotal pradeep. There are tubular structures along the deep inferior region of the testicle that are hypoechoic with slow blood flow during Valsalva. LEFT: Left testicle measures 3.0 1.7 x 2.4 cm, volume 6.4 mL. No focal testicular parenchymal lesions are visualized. Spectral Doppler analysis of the arterial and venous flow is present in the left testis. Left epididymis is mildly enlarged and heterogeneously hypoechoic with multiple echogenic foci. . No left hydrocele or varicocele is seen. Left epididymal Doppler flow is present US/US scrotum doppler IMPRESSION: Possible epididymitis. The appear mildly enlarged and heterogeneously hypoechoic but without increased blood flow. There are multiple echogenic foci raising question of chronic epididymitis. Moderately complex right hydrocele. Right varicocele. Right side scrotal pradeep. Electronically signed by: Mahendra Dickson MD 01/29/2025 01:00 PM EDT
[2025-01-29 11:08] VITALS: BP 117/74; PULSE 114; RESP 16; TEMP 36.1; O2SAT 95; BMI 27.5
--- NOTE | 2025-01-29 11:10 | ED.BACK ---
HPI - Back Pain/Injury General Chief Complaint: Urogenital-Male Stated Complaint: shira vizcarra Time Seen by Provider: 01/29/25 13:57 History of Present Illness ED Provider: Raina CURTIS Narrative: The patient is an 89-year-old male. He has a history of atrial fibrillation. He is on warfarin. He says that about a week ago he was lifting an air conditioner when, after picking up the your conditioner, he experienced severe pain across his lower abdomen. He has continued to have pain since then. He feels the pain primarily on the right side and into the right groin. He says that he has been eating normally. He says that he has had fewer bowel movements. No vomiting. Related Data Home Medications ?Medication ?Instructions ?Recorded ?Confirmed warfarin 2 mg tablet 2 mg PO DAILY@1800 08/02/24 01/11/25 acetaminophen 500 mg tablet 500 mg PO Q6H PRN 01/30/25 magnesium 200 mg tablet 500 mg PO DAILY 01/30/25 Previous Rx's ?Medication ?Instructions ?Recorded furosemide 40 mg tablet (Lasix) 40 mg PO BID #120 tabs 09/17/24 tamsulosin 0.4 mg capsule 0.4 mg PO BEDTIME #90 caps 09/20/24 finasteride 5 mg tablet (Proscar) 5 mg PO DAILY 90 days #90 tabs 11/08/24 atorvastatin 40 mg tablet 40 mg PO BEDTIME 90 days #90 tabs 01/10/25 metoprolol succinate 25 mg 25 mg PO DAILY #90 tabs 01/10/25 tablet,extended release 24 hr spironolactone 25 mg tablet 25 mg PO DAILY #90 tabs 02/04/25 Allergies Allergy/AdvReac Type Severity Reaction Status Date / Time No Known Allergies (No Known Allergy Verified 01/29/25 11:15 Allergies*) Review of Systems Review of Systems: Yes all other systems are reviewed and are negative PMF Past Medical History Medical History Tachy-garrison syndrome Hypertension, essential, benign Hyperlipidemia Atrial fibrillation Osteoarthritis Pacemaker (~2008) Current use of anticoagulant therapy Surgical History History of colonoscopy History of eye surgery History of appendectomy Status post left foot surgery (~02/2020) Amputated toe of left foot History of cardiac pacemaker History of cardiac radiofrequency ablation (RFA) Family History Family History Father No problems noted. Mother No problems noted. Social History Social History Household Members: Spouse Housing: House Do you presently have visiting nurse or other home services: No Alcohol intake: current Alcohol intake frequency: a few times a week Alcohol type: beer Patient Tobacco Use Status: Former Tobacco user Years Smoked: 15 e-Cigarette/Vaping Use: Never Used Advance Directives: Yes Advance Directives on File: Yes Advance Directives Date on File: 09/27/22 Do you have a plan to hurt others: No Plan service: No Current occupational status: retired Hearing needs: No Vision needs: Yes (Glasses) Physical Exam Vital Signs: Vital Signs: Last Vital Signs Temp 98.5 F 01/29/25 17:59 Pulse 79 01/29/25 17:59 Resp 17 01/29/25 17:59 BP 133/89 01/29/25 17:59 Pulse Ox 97 01/29/25 17:59 O2 Del Method Room Air 01/29/25 17:59 BMI result Body Mass Index 27.5 Const: Other: The patient is an 89-year-old male who was awake and alert. He did not appear obviously uncomfortable at rest although he seemed to have discomfort when he changed position. He did not appear toxic. HEENT: Other: The face is symmetrical. ?Mucous membranes moist. Eyes: General: appearance normal, both eyes and all related structures Neck: Neck: Yes normal visual inspection, Yes full ROM and Yes no JVD Resp: Effort & Inspection: normal respiratory effort Auscultation: clear to auscultation bilaterally Cardio: Other: The patient has an irregular rate and rhythm, no murmur heard GI: Other: The abdomen seems soft and nontender. : Other: There seems to be some fullness to the right hemiscrotum with a lot of generalized tenderness to the right hemiscrotum. The contents of the right hemiscrotum seem very indistinct and tender. The left hemiscrotum is unremarkable. I do not appreciate a definite hernia however. Skin: Other: Skin is dry and unremarkable Neuro: Other: The patient is awake and alert with a normal mental status. Cranial nerves grossly intact. Moves extremities normally and appropriately. Extrem: Other: No peripheral edema. Course Reevaluation(s) Reevaluation #1: Candy Arce PA-C 11:10 am 01/29/2025 RME, will defer full ROS and PE to main provider Dr. Joseph, saw in person today PCP- worried about hernia in testicle. Lifted up an air conditioner 1 week ago and has pain in his backside since that time. Only can take Tylenol ES Uses cane at baseline to amb, changes positions makes worse. Patient denies personal history of cancer, IVDU, fevers, chills, night sweats, unintentional wt loss, saddle anesthesia, and change/loss in bladder/ bowel function. Time: 11:14 Medications Administered Discontinued Medications Generic Name Dose Route Start Last Admin Trade Name Freq PRN Reason Stop Dose Admin Acetaminophen 1,000 mg in 100 mls @ 400 mls/hr 01/29/25 15:13 01/29/25 16:11 Ofirmev IV 01/29/25 15:27 Infused ONCE ONE Infusion Iohexol 100 ml 01/29/25 16:40 01/29/25 16:43 Iohexol 350 Mg/Ml 100 Ml Infus..Btl IV 01/29/25 16:41 85 ml ONCE ONE Administration Medical Decision Making Medical Decision Making [facility] Narrative: The patient is a very pleasant 89-year-old who was on warfarin who has right groin pain and right back pain that began when he lifted an air conditioner 1 week ago. He was sent here out of concern for a possible inguinal hernia because he seemed to have pain in his right hemiscrotum. The patient had an ultrasound of his scrotum which showed a somewhat enlarged epididymis, a right hydrocele, a right varicocele, and a right scrotal pradeep. No definite evidence of hernia on ultrasound. On his physical exam he has a boggy right hemiscrotum that seems somewhat tender but I do not appreciate any definite sense of a hernia. We also did a CT scan of the abdomen and pelvis that shows no suggestion of a right inguinal hernia or other hernia. Overall therefore I think this patient's pain is probably a musculoskeletal type strain injury of either a groin injury or a back injury (he was complaining of back pain as well as right groin pain). Since he is on anticoagulation he will not be given nonsteroidals. He does not wish to use opioids. He will try to get by with acetaminophen. He will follow up with his PCP. He will return if worse. Lab Data 01/29/25 15:50 01/29/25 15:50 Labs: Lab Results 01/29/25 Range/Units 15:50 WBC 5.0 (4.8-10.8) X10*3/uL RBC 4.12 L (4.60-5.80) X10*6/uL Hgb 12.0 L (14.0-18.0) g/dl Hct 36.5 L (42.0-52.0) % MCV 88.6 (80.0-98.0) fL MCH 29.1 (27.0-33.0) pg MCHC 32.9 (31.0-36.0) g/dl RDW 14.3 (11.0-16.0) % Plt Count 181 (160-400) X10*3/uL MPV 9.7 (9.4-12.4) fL Immature Gran % (Auto) 0.2 (0.0-0.4) % Neut % (Auto) 58.0 (45-73) % Lymph % (Auto) 31.7 (20-40) % Zavala % (Auto) 7.1 (2-11) % Eos % (Auto) 2.4 (0-4) % Baso % (Auto) 0.6 (0-2) % Lymph # (Auto) 1.6 (1.2-4.9) X10*3/uL Zavala # (Auto) 0.4 (0.1-1.2) X10*3/uL Eos # (Auto) 0.1 (0.0-0.4) X10*3/uL Baso # (Auto) 0.0 (0.0-0.2) X10*3/uL Abs Immat Gran (auto) 0.01 (0.00-0.03) X10*3/uL Absolute Neuts (auto) 2.9 (2.0-8.3) x10*3/uL Absolute Nucleated RBC 0.000 (0.0-0.012) X10*3/uL Nucleated RBC % (auto) 0.0 (0.0-0.2) /100WBC PT 26.7 H (10.9-12.4) SEC INR 2.3 H (0.9-1.1) Sodium 140 (135-145) mmol/L Potassium 4.1 (3.3-5.1) mmol/L Chloride 103 (96-108) mmol/L Carbon Dioxide 27 (22-29) mmol/L Anion Gap 14 (12-20) BUN 16 (9-16) mg/dL Creatinine 0.95 (0.5-1.4) mg/dL Estim Creat Clear Calc 63.0 Estimated GFR > 60 Random Glucose 88 (60-115) mg/dL Calcium 9.4 (8.4-10.2) mg/dL Discharge Plan Discharge Clinical Impression: Strain of right groin, Muscle strain of right upper back Patient Disposition: Home, Self-Care Additional Instructions: We are not finding any evidence of a hernia associated with your pain. I think you probably have strained some muscles in your groin and possibly an your back as well. Please continue to take 2 extra-strength acetaminophen every 6-8 hours as needed for pain. Please follow up with your regular doctor and with your urologist. Return to the emergency room if significantly worse. Prescriptions: No Action finasteride [Proscar] 5 mg tablet 5 mg PO DAILY 90 Days Qty: 90 3RF magnesium 200 mg tablet 500 mg PO DAILY acetaminophen 500 mg tablet 500 mg PO Q6H PRN spironolactone 25 mg tablet 25 mg PO DAILY Qty: 90 3RF warfarin 2 mg Tablet 2 mg PO DAILY@1800 Protocol: Dose Management Condition: Tuesday (Week One) Dose/Route: 2 mg Instruction: 1 x 2 mg tablet Condition: Tuesday Dose/Route: 4 mg Instruction: 2 x 2 mg tablets Condition: Tuesday Dose/Route: 2 mg Instruction: 1 x 2 mg tablet Condition: Tuesday Dose/Route: 4 mg Instruction: 2 x 2 mg tablets Condition: Dose/Route: 2 mg Instruction: 1 x 2 mg tablet Condition: Tuesday Dose/Route: 4 mg Instruction: 2 x 2 mg tablets Condition: Tuesday Dose/Route: 2 mg Instruction: 1 x 2 mg tablet Condition: Tuesday (Week Two) Dose/Route: 2 mg Instruction: 1 x 2 mg tablet Condition: Tuesday Dose/Route: 4 mg Instruction: 2 x 2 mg tablets Condition: Tuesday Dose/Route: 2 mg Instruction: 1 x 2 mg tablet Condition: Tuesday Dose/Route: 4 mg Instruction: 2 x 2 mg tablets Condition: Dose/Route: 2 mg Instruction: 1 x 2 mg tablet Condition: Tuesday Dose/Route: 4 mg Instruction: 2 x 2 mg tablets Condition: Tuesday Dose/Route: 2 mg Instruction: 1 x 2 mg tablet Protocol Text: Adjustment Start Date: Tuesday01/11/25 INR Value: 2.8 INR Date: 01/11/25 Recheck Date: 02/10/25 tamsulosin 0.4 mg capsule 0.4 mg PO BEDTIME Qty: 90 3RF atorvastatin 40 mg tablet 40 mg PO BEDTIME 90 Days Qty: 90 0RF metoprolol succinate 25 mg tablet extended release 24 hr 25 mg PO DAILY Qty: 90 1RF furosemide [Lasix] 40 mg tablet 40 mg PO BID Qty: 120 4RF Referrals: Chetna Armstrong MD [Physician, Urology] Romain Vizcarra PULP REFINER OPERATOR-BC [Primary Care Provider, Internal Medicine] Interventions: ED Discharge Assessment Last Done: 01/29/25 17:59 Discharge Date/Time: 01/29/25 18:14 Print Language: Cymro
[2025-01-29 15:30] VITALS: BP 132/92; PULSE 80; RESP 15; TEMP 36.9; O2SAT 99
[2025-01-29 15:53] LABS: MANUAL DIFF FLAG NO
[2025-01-29 15:56] LABS: Basophils Percent Auto 0.6 % (0-2); Eosinophils Absolute Auto 0.1 X10*3/uL (0.0-0.4); Eosinophils Percent Auto 2.4 % (0-4); Hematocrit 36.5 % (42.0-52.0); Imm Gran Abs Auto 0.01 X10*3/uL (0.00-0.03); Imm Gran Pct Auto 0.2 % (0.0-0.4); Lymphocytes Absolute Auto 1.6 X10*3/uL (1.2-4.9); Lymphocytes Percent Auto 31.7 % (20-40); Mean Corpuscular HGB Conc 32.9 g/dl (31.0-36.0); Mean Corpuscular Hemoglobin 29.1 pg (27.0-33.0); Mean Corpuscular Volume 88.6 fL (80.0-98.0); Mean Platelet Volume 9.7 fL (9.4-12.4); Monocytes Absolute Auto 0.4 X10*3/uL (0.1-1.2); Monocytes Percent Auto 7.1 % (2-11); Neutrophils Absolute Auto 2.9 x10*3/uL (2.0-8.3); Platelet Count 181 X10*3/uL (160-400); Red Blood Count 4.12 X10*6/uL (4.60-5.80); Red Cell Distribution Width 14.3 % (11.0-16.0)
[2025-01-29] MEDS: Acetaminophen 1,000 MG/100 ML PIGGYBACK 400 MG IV (15:56)
[2025-01-29 16:04] LABS: INTERNATIONAL NORM RATIO 2.3 (0.9-1.1); Prothrombin Time 26.7 SEC (10.9-12.4)
[2025-01-29 16:06] LABS: Anion Gap 14 (12-20); Blood Urea Nitrogen 16 mg/dL (9-16); Calcium 9.4 mg/dL (8.4-10.2); Carbon Dioxide 27 mmol/L (22-29); Chloride 103 mmol/L (96-108); Estimated Glomerular Filt Rate > 60; Glucose Random 88 mg/dL (60-115); Potassium 4.1 mmol/L (3.3-5.1); Sodium 140 mmol/L (135-145)
[2025-01-29] MEDS: iohexoL 350 MG/ML 100 ML INFUS..BTL IV (16:43)
[2025-01-29 17:59] VITALS: BP 133/89; PULSE 79; RESP 17; TEMP 36.9; O2SAT 97
== END 2025-01-29 18:14 | disposition home or self-care (01) ==
PROVIDERS: Emergency Provider Emergency Medicine; PCP Nurse Practitioner Family
DX: S39.011A Strain of muscle, fascia and tendon of abdomen, initial encounter (principal); S29.012A Strain of muscle and tendon of back wall of thorax, initial encounter; X50.0XXA Overexertion from strenuous movement or load, initial encounter; R10.31 Right lower quadrant pain; Y93.89 Activity, other specified; Y92.019 Unspecified place in single-family (private) house as the place of occurrence of the external cause; Y99.9 Unspecified external cause status; Z79.01 Long term (current) use of 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s
CPT/HCPCS: 36415; 74177; 76870; 80048; 85025; 85610; 93975; 96374; 99284; J0131; Q9967

== ENCOUNTER → 2025-01-29 11:14 | Outpatient (BNV) | payer MEDICARE, OTHER, SELFPAY | PROVIDERS: Emergency Provider Emergency Medicine; PCP Nurse Practitioner Family; Visit Provider Radiology Diagnostic Radiology | DX: N50.82 Scrotal pain (principal) | CPT/HCPCS: 74177; 76870; 93975 ==

== ENCOUNTER 2025-02-12 09:06 | Outpatient (AMB) | payer MEDICARE, OTHER, SELFPAY ==
--- OUTSIDE RECORDS SUMMARY | 2023-10-05 05:30 | XMS_ITS ---
Author Organization [facility] Address [address] [place] [address] Care Team Providers Care Concrete Engineer Name Role Phone Romain Glez Primary Care Provider Unav Bel Zazueta Unavailable [phone] Sebastian Smith [phone] REASON FOR VISIT r/s taken off cx list Encounters Encounter Location Date Provider Diagnosis [address] [address] 10/05/2023 Sebastian Smith Plan Of Treatment Next Appt Details Provider Name:Bel Kramer alyson, 04/03/2025 09:30:00 AM, [address] [place] [address], [phone], Progress Notes * Zander GRIDER LDOB: [birth year] (89 yo M)Acc No.[id number]:10/05/2023 Progress Notes Patient: Zander BINGHAM Provider: Francis Smith DPM :1935 A ge:88 Y S ex:Male Date:10/05/2023 Address:[address] [place], [place] [address], [id number] Pcp:FRIDA Le Subjective: * Chief Complaints: * 1 . R/s taken off cx list. * Medical History: Objective: * Vitals: Assessment: Plan: * Treatment: * Images: * The named appointment provid er may or may not be the originator of this progress note, and it is not deemed complete until electronically signed by the appointment provider. Sign off status: Pending * Provider: Francis Smith DPM Date: 0 10/05/2023 Generated for Latha Case on: 0 02/12/2025 09:26 AM EDT
[2025-02-12 09:11] VITALS: BP 112/60; PULSE 82; TEMP 37.1; O2SAT 98; BMI 27.5
--- NOTE | 2025-02-12 09:11 | MHC.OFFWIV ---
Intake Vital Signs 02/12/25 09:11 Height 6 ft 3 in Weight 220 lb BMI 27.5 BP 112/60 Blood Pressure Location Rt brachial Position Sitting Pulse 82 Pulse Source Pulse Oximeter Temp 98.8 F Temp Source Oral Pulse Oximetry (%) 98 Oxygen Delivery Method Room Air Intake Visit Reasons: EP Rash 5 days after gabapentin Patient Tobacco Use Status: Former Tobacco user Pacu Nurse Required: No Allergies No Known Allergies (No Known Allergies*) Allergy (Verified 02/12/25 09:15) Do you need a note to return to daycare/school/sports/work: No HPI HPI Comments History of Present Illness Details History of Present Illness - The patient is an 89-year-old male here with his daughter presenting with persistent testicular pain concerns and a rash. - The patient has a history of umbilical and hiatal hernias, identified during a CT scan for abdominal pain last month. - The patient experienced a fall while snow blowing last winter, leading to L1 and L2 vertebral fractures, discovered during imaging for hernia evaluation. - The patient developed a rash after taking gabapentin for pain management, prescribed as an alternative to opioids. Patient states after taking this medication, he broke out an itchy rash on his bilateral legs, he stopped taking the medication and started using triamcinolone cream on the rash which improved the rash. He tells me it is no longer itchy. He denies any skin peeling, fevers or boils. - The patient has a history of prostate issues causing urinary retention, exacerbated by current conditions. - Epididymitis was identified on ultrasound, question if chronic or acute but no antibiotics were initially prescribed. Pt not sexually active, no recent UTI's. - The patient has a history of vertigo, contraindicating opioid use due to fall risk. - The patient has a known history of heart disease, limiting surgical options for hernias. Physical Exam General: Cooperative, healthy appearing, comfortable, no acute distress and well developed Orientation: Patient oriented x3 Limitations: in wheelchair Head: Normal to inspection Ears: Hearing grossly normal bilaterally Nose: Normal External nose present Face and sinus: Normal facial exam Eyes: Appearance normal, both eyes and all related structures Neck: Normal visual inspection and Yes full ROM Respiratory: Normal respiratory effort and able to speak in complete sentences. Skin: macular erthematous rash noted on bilateral upper legs Neuro: Patient oriented x3 Extremities: Normal to inspection PFSH Medical History Tachy-garrison syndrome Hypertension, essential, benign Hyperlipidemia Atrial fibrillation Osteoarthritis Pacemaker (~2008) Current use of anticoagulant therapy Surgical History (Reviewed 01/10/25 @ 11:32 by Romain Vizcarra, [facility]) History of colonoscopy History of eye surgery History of appendectomy Status post left foot surgery (~02/2020) Amputated toe of left foot History of cardiac pacemaker History of cardiac radiofrequency ablation (RFA) Family History (Reviewed 01/10/25 @ 10:46 by Abdiaziz Lopez, [facility]) Father No problems noted. Mother No problems noted. Social History (Reviewed 01/10/25 @ 11:32 by Romain Vizcarra, [facility]) Household Members: Spouse Housing: House Do you presently have visiting nurse or other home services: No Alcohol intake: current Alcohol intake frequency: a few times a week Alcohol type: beer Patient Tobacco Use Status: Former Tobacco user Years Smoked: 15 e-Cigarette/Vaping Use: Never Used Advance Directives Date on File: 09/27/22 service: No Current occupational status: retired Hearing needs: No Vision needs: Yes (Glasses) Review of Systems Const All systems reviewed & are unremarkable except as noted in HPI and below Physical Exam Vital Signs: Last Vital Signs Temp 98.8 F 02/12/25 09:11 Pulse 82 02/12/25 09:11 BP 112/60 02/12/25 09:11 Pulse Ox 98 02/12/25 09:11 Oxygen Delivery Method Room Air 02/12/25 09:11 BMI result Body Mass Index 27.5 Assessment & Plan Assessment & Plan (1) Persistent pain in testicle: Code(s): N50.819 - Testicular pain, unspecified Plan: Plan - US/US scrotum IMPRESSION: Possible epididymitis. The appear mildly enlarged and heterogeneously hypoechoic but without increased blood flow. There are multiple echogenic foci raising question of chronic epididymitis. Moderately complex right hydrocele. Right varicocele. Right side scrotal pradeep. CT/CT abdomen pelvis w IV con IMPRESSION: Numerous incidental findings without a clear explanation of the patient's symptoms. Bilateral lipid rich adrenal adenomas. Age-indeterminate compression fractures of L1 and L2, new since June 2023. Umbilical hernia containing fat. Small sliding hiatal hernia. 3 mm nonobstructing stone in the mid left kidney is stable. Fleischner guidelines were followed. Electronically signed by: Mahendra Dickson MD 01/29/2025 05:23 PM EDT Plan - Discussed with patients PCP - Prescribe prednisone 40 mg daily for five days to manage inflammation and pain as well as the rash. Can use benadryl at night with caution if he gets up to use the bathroom that he may be groggy from the Benadryl, he will use a urinal at night. - Consider topical treatments such as Voltaren gel for localized back pain management, avoiding systemic interactions with warfarin. - Schedule a follow-up with urology to address prostate issues and potential epididymitis, aiming for an earlier appointment if possible. Messaged Urology. Patient was informed and verbally consented to the use of an ambient scribe for clinic note documentation during this visit. (2) Allergic dermatitis: Code(s): L23.9 - Allergic contact dermatitis, unspecified cause Plan: As above Medications: New prednisone 40 mg (2 x 20 mg) PO QAM 10 tabs 0RF Coding Level of Care Code Est Pt Level 4 (87020) Diagnoses Persistent pain in testicle N50.819 Allergic dermatitis L23.9
--- OUTSIDE RECORDS SUMMARY | 2025-02-12 09:27 | XMS_ITS | Patient Health Record ---
Author Organization [facility] Billing Info Address [address] [place] [address] Care Team Providers Care Stallion Manager Name Role Phone ALIYA STRICKLAND Unavailable [phone] Reason For Referral No Information Medications Medication [...] Problem Status W/U Status Risk Notes Problem 254479332 Presence of card iac pacemaker (Z95.0) Active confirmed Problem 09081556 Venous insuffici ency (I87.2) Active confirmed Problem 385302300 BMI 29.0-29.9,ad ult (Z68.29) Active confirmed Problem 787945068 intermediate card tender curren t use of anticoagulant (Z79.01) Active confirmed Problem 829861654 Atrial fibrillat ion and flutter (I48.91) Active confirmed Problem 14275995 SSS (sick sinus syndrome) (I49.5) Active confirmed Problem 374358844 High risk medica tion use (Z79.899) Active confirmed Problem 378734433 Pure hypercholesterolemia (E78.00) Active confirmed Plan Of Treatment No Information Insurance Providers Payer Name Payer Address Payer Phone Subscriber Number Group Number Insured Name Patient Relationship to Insured Coverage Start Date Coverage End Date [place]ARE [place] PART B [address] [facility] CAIN DIMAS [id number] Zander Celestin Self - patient is the insured 1 0 UNIC[employer] DOS PRIOR TO [id number] [address] [place], [place] [id number] Zander Celestin Self - patient is the insured 1 0 Medical (General) History Medical History History ICD Code Atrial fibrillation Atrial flutter High risk medications Sick sinus syndrome or Bradycardia s/p Pacemaker Venous insufficiency Encounter for long-term (current) use of 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s Surgical History Surgery Date(Month/Year) Cardiac pacemaker 2008 Ablasion
== END 2025-02-12 09:55 | disposition home or self-care (01) ==
PROVIDERS: PCP Nurse Practitioner Family; Visit Provider Physician Assistant
DX: N50.819 Testicular pain, unspecified (principal); L23.9 Allergic contact dermatitis, unspecified cause

== ENCOUNTER → 2025-02-12 09:06 | Outpatient (BNVA) | payer MEDICARE, OTHER, SELFPAY | PROVIDERS: PCP Nurse Practitioner Family; Visit Provider Physician Assistant | DX: N50.819 Testicular pain, unspecified (principal); L23.9 Allergic contact dermatitis, unspecified cause; Z87.891 Personal history of nicotine dependence | CPT/HCPCS: 99212 ==

== ENCOUNTER 2025-02-20 10:24 | Outpatient (AMB) | payer MEDICARE, OTHER, SELFPAY ==
--- OUTSIDE RECORDS SUMMARY | 2023-10-05 05:30 | XMS_ITS ---
Author Organization [facility] Address [address] [place] [address] Care Team Providers Care [employer] Warrant Officer Name Role Phone Romain Glez Primary Care Provider Unav Bel Zazueta Unavailable [phone] Sebastian Smith [phone] REASON FOR VISIT r/s taken off cx list Encounters Encounter Location Date Provider Diagnosis [address] [address] 10/05/2023 Sebastian Smith Plan Of Treatment Next Appt Details Provider Name:Bel Kramer alyson, 04/03/2025 09:30:00 AM, [address] [place] [address], [phone], Progress Notes * Zander GRIDER LDOB: [birth year] (89 yo M)Acc No.[id number]:10/05/2023 Progress Notes Patient: Zander BINGHAM Provider: Francis Smith DPM :1935 A ge:88 Y S ex:Male Date:10/05/2023 Address:[address] [place], [place] [address] [place], [id number] Pcp:FRIDA Le Subjective: * Chief Complaints: * [...] 10/05/2023 Generated for Latha Case on: 0 02/20/2025 10:59 AM EDT
[2025-02-20 10:26] VITALS: BP 116/68; PULSE 52; TEMP 36.4; O2SAT 98; BMI 27.5
--- NOTE | 2025-02-20 10:26 | MHC.OFFWIV ---
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 Pt lives in 2 story home with who suffers from dementia Pt presents today with intractable pain. Initially seen 01/29/25 for R scrotal pain in the office and sent to the ER Had CT scan and US Next is urology appointment Taking tylenol for pain without relief; gabapentin previous caused reaction Trialed Prednisone without relief States scrotum feels raw, No discharge from region He said he feels pain to R medial groin as well and feels like groin mass is getting larger States pins and needle sensation to R leg; ongoing x 2-3 days All symptoms severely worsening x 2 days He said difficulty walking due to pain into R leg No recent falls but daughter said close to falling Pain worse when ambulating, pain improved with sitting but can still be painful laying Any movement provokes pain position helps slightly Pain level is 12/10 per pt Lower abdominal pain associated with lower back pain No nausea or vomiting, States some constipation; last BM yesterday Urinating small amounts but has urgency. No blood but + dark urine which is new [facility] Medical History Tachy-garrison syndrome Hypertension, essential, benign Hyperlipidemia Atrial fibrillation Osteoarthritis Pacemaker (~2008) Current use of anticoagulant therapy Surgical History History of colonoscopy History of eye surgery History of appendectomy Status post left foot surgery (~02/2020) Amputated toe of left foot History of cardiac pacemaker History of cardiac radiofrequency ablation (RFA) Family History Father No problems noted. Mother No problems noted. Social History Household Members: Spouse Housing: House Do you presently have visiting nurse or other home services: No Alcohol intake: current Alcohol intake frequency: a few times a week Alcohol type: beer Patient Tobacco Use Status: Former Tobacco user Years Smoked: 15 e-Cigarette/Vaping Use: Never Used Advance Directives Date on File: 09/27/22 service: No Current occupational status: retired Hearing needs: No Vision needs: Yes (Glasses) Review of Systems Const Denies chills, Denies fever(s), Denies frequent falls and Reports weakness Eyes Denies change in vision ENT Reports disequilibrium Card Denies chest pain and Denies dyspnea Resp Denies dyspnea GI Reports abdominal pain, Denies melena, Denies hematochezia, Reports constipation, Denies diarrhea, Denies nausea and Denies vomiting Denies hematuria (but dark colored urine per pt), Reports genital pain, Denies dysuria, Reports flank pain, Reports nocturia, Denies penile discharge, Reports scrotal swelling, Reports urinary frequency and Denies urinary incontinence Musc Reports abnormal gait, Reports back pain, Reports radiating pain into limb (R leg) and Reports tingling Skin/Breast Denies rash, Reports skin pain and Denies wounds Neuro Reports abnormal gait, Denies confusion, Denies frequent falls, Reports radicular pain, Reports tingling, Reports disequilibrium and Reports weakness Psych Denies confusion Physical Exam Vital Signs: Last Vital Signs Temp 97.6 F 02/20/25 10:26 Pulse 52 02/20/25 10:26 BP 116/68 02/20/25 10:26 Pulse Ox 98 02/20/25 10:26 Oxygen Delivery Method Room Air 02/20/25 10:26 BMI result Body Mass Index 27.5 General: Non-toxic but extrmely uncomfortable, tearful in interview. Speaking full sentences. Skin: Warm dry throughout. There is no lower extremity edema or erythema appreciated. Lower extremities feel normal temperature in comparison to eachother. Eye: EOMI HENT: Airway patent. Uvula midline. No pharyngeal erythema or edema. No SOLE ROUGHER. Bilateral canals clear. TM non-erythematous, non-bulging. No TM perforation or hemotympanum noted. Respiratory: CTA bilaterally. No wheezes, rales or rhonchi Cardiac: RRR. No murmur. DP pulse palpated bilaterally. There is delayed capillary refill to approx 5 seconds in all digits on bilateral lower extremities. No calf tenderness to pitting edema bilaterally Abdominal: BS present. No upepr abdominal ttp. Diffuse lower abdominal and suprapubic ttp with guarding appreciated. ABdomen soft : Pt refused user support analyst. There is notable boggy edematous epipdydimus palpation bilaterally with immense tenderness to palpation of both sides of scrotum. No visualized abscess or rashes to genitals. No penile edema or discharge appreciated. MSK:Pt has no mindline cervical or thoracic ttp. It took a 2 man assist to pivot pt to examination table from wheelchair but there was no foot drop appreciated. Pt has diffuse lumbar midline and paravertebral muscle ttp. Able to move ankle and digits on feet. Neurology: Alert. No aphasia or facial droop. Psych: Good mood and affect Const General: No confusion Orientation/consciousness: No confusion Neuro General: No confusion Assessment & Plan Assessment & Plan (1) Scrotal pain: Code(s): N50.82 - Scrotal pain Plan: Pt seen and evaluated He is in unbearable pain with tearful affect. He is not safe to be discharged home in this much pain due to fall risk Discussed with daughter and patient and they agreed to go to ER for pain manageent and possible other etiology of pain ? neurological origin with new onset tingling to RLE with radicular pain Expect called to [place] [facility] Daughter to bring him directly for eval Urology appointment was moved to tomorrow with an office opening All questions answered at time of discharge Coding Level of Care Code Est Pt Level 4 (26237) Diagnoses Scrotal pain N50.82
--- OUTSIDE RECORDS SUMMARY | 2025-02-20 11:00 | XMS_ITS | Patient Health Record ---
Author Organization [facility] Billing Info Address [address] [place] [address] Care Team Providers Care First Leveler Name Role Phone ALIYA STRICKLAND Unavailable [phone] Reason For Referral No Information Medications Medication [...] Problem Status W/U Status Risk Notes Problem [id number] Presence of card iac pacemaker (Z95.0) Active confirmed Problem 91943069 Venous insuffici ency (I87.2) Active confirmed Problem 758867882 BMI 29.0-29.9,ad ult (Z68.29) Active confirmed Problem 064512003 shelter curren t use of anticoagulant (Z79.01) Active confirmed Problem 285458733 Atrial fibrillat ion and flutter (I48.91) Active confirmed Problem 73788489 SSS (sick sinus syndrome) (I49.5) Active confirmed Problem 070006514 High risk medica tion use (Z79.899) Active confirmed Problem 086356629 Pure hypercholesterolemia (E78.00) Active confirmed Plan Of Treatment No Information Insurance Providers Payer Name Payer Address Payer Phone Subscriber Number Group Number Insured Name Patient Relationship to Insured Coverage Start Date Coverage End Date [place] PART B [address] [facility] CAIN DIMAS [id number] Zander Celestin Self - patient is the insured 1 0 [employer]IC[employer] DOS PRIOR TO [id number] [address] [place], [place] [id number] Zander Celestin Self - patient is the insured 1 0 Medical (General) History Medical History History ICD Code Atrial fibrillation Atrial flutter High risk medications Sick sinus syndrome or Bradycardia s/p Pacemaker Venous insufficiency Encounter for long-term (current) use of 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s Surgical History Surgery Date(Month/Year) Cardiac pacemaker 2008 Ablasion
== END 2025-02-20 11:44 | disposition home or self-care (01) ==
PROVIDERS: PCP Nurse Practitioner Family; Visit Provider Physician Assistant
DX: N50.82 Scrotal pain (principal)

== ENCOUNTER 2025-02-20 11:36 | Emergency (ER) | payer MEDICARE, OTHER, SELFPAY ==
[2025-02-20] VITALS (7 sets, daily range): BP systolic 106–131; BP diastolic 60–86; PULSE 50–97; RESP 14–18; TEMP 36.2–36.7; O2SAT 88–98; BMI 26.7
--- NOTE | ~2025-02-20 | XR_ITS ---
EXAMINATION: XR HIP, RIGHT CLINICAL INFORMATION: hip pain COMPARISON: None available. TECHNIQUE: AP and oblique views of the right hip. AP view pelvis. FINDINGS: No acute cortical disruption or malalignment. Sclerosis along the articular surface and subchondral cyst formation in both coxofemoral joints with asymmetric joint space narrowing. Bony pelvis is intact. Osteopenia versus osteoporosis. Spondylosis at L4-5 and L5-S1. XR/XR hip RT w PEL1V IMPRESSION: No acute fracture or dislocation. Osteoarthrosis, mild both hips. Electronically signed by: Ashwin Shah MD 02/20/2025 01:21 PM EDT
--- NOTE | ~2025-02-20 | US_ITS ---
EXAMINATION: US SCROTUM CLINICAL INFORMATION: Severe right scrotal pain. COMPARISON: January 29, 2025 TECHNIQUE: A sonogram of the scrotum was performed assessing herndon-scale appearance and color Doppler flow. Spectral Doppler analysis of the arterial and venous flow were performed in the testes bilaterally. FINDINGS: RIGHT: Right testicle measures 3.6 cm. There is heterogeneous hypoechogenicity. Spectral Doppler analysis of the arterial and venous flow is present in the right testis. Right epididymal head demonstrates punctate areas of hyperechogenicity. There is a anechoic cyst measuring 2 x 3 mm. The epididymis appears hypoechoic and mildly enlarged but without hypervascularity. There is a hydrocele with low-level echogenicity.. Right epididymal Doppler flow is present LEFT: Left testicle measures 3.4 cm. 2 punctate calcifications are present in the inferior aspect of the lower pole. Trace hydrocele is noted. Spectral Doppler analysis of the arterial and venous flow is present in the left testis. Left epididymal head demonstrates a anechoic 3 mm cyst . There are tubular and circular hyperechogenic structures to demonstrate increased flow on Valsalva. Left epididymal Doppler flow is present US/US scrotum doppler IMPRESSION: Suspected right epididymoorchitis with mildly complex hydrocele. On the prior examination, the right testicle appeared uniform in echotexture, today it appears more heterogeneous suggesting progression of epididymitis to epididymal orchitis. However, blood flow does not appear increased which softens the diagnosis. Correlate clinically. Left varicocele. On the prior ultrasound images with varicocele were mislabeled as right. Minimal microlithiasis in the left testicle. Trace left hydrocele Small epididymal head cysts are present bilaterally. Electronically signed by: Mahendra Dickson MD 02/20/2025 01:50 PM EDT
--- NOTE | ~2025-02-20 | US_ITS ---
EXAMINATION: US SCROTUM CLINICAL INFORMATION: Severe right scrotal pain. COMPARISON: January 29, 2025 TECHNIQUE: A sonogram of the scrotum was performed assessing herndon-scale appearance and color Doppler flow. Spectral Doppler analysis of the arterial and venous flow were performed in the testes bilaterally. FINDINGS: RIGHT: Right testicle measures 3.6 cm. There is heterogeneous hypoechogenicity. Spectral Doppler analysis of the arterial and venous flow is present in the right testis. Right epididymal head demonstrates punctate areas of hyperechogenicity. There is a anechoic cyst measuring 2 x 3 mm. The epididymis appears hypoechoic and mildly enlarged but without hypervascularity. There is a hydrocele with low-level echogenicity.. Right epididymal Doppler flow is present LEFT: Left testicle measures 3.4 cm. 2 punctate calcifications are present in the inferior aspect of the lower pole. Trace hydrocele is noted. Spectral Doppler analysis of the arterial and venous flow is present in the left testis. Left epididymal head demonstrates a anechoic 3 mm cyst . There are tubular and circular hyperechogenic structures to demonstrate increased flow on Valsalva. Left epididymal Doppler flow is present US/US scrotum IMPRESSION: Suspected right epididymoorchitis with mildly complex hydrocele. On the prior examination, the right testicle appeared uniform in echotexture, today it appears more heterogeneous suggesting progression of epididymitis to epididymal orchitis. However, blood flow does not appear increased which softens the diagnosis. Correlate clinically. Left varicocele. On the prior ultrasound images with varicocele were mislabeled as right. Minimal microlithiasis in the left testicle. Trace left hydrocele Small epididymal head cysts are present bilaterally. Electronically signed by: Mahendra Dickson MD 02/20/2025 01:50 PM EDT
--- NOTE | 2025-02-20 11:50 | ED_ITS ---
HPI - General Adult General Chief complaint: General Medical Stated complaint: generalized pain, numb leg, hernia Time Seen by Provider: 02/20/25 12:12 Source: patient and family (daughter) Mode of arrival: ambulatory Limitations: no limitations History of Present Illness ED Provider: HPI narrative: 89-year-old male here with his daughter, end of January seen here for about the same pain in the lower abdomen, right hip and scrotal area, as prior head CT and ultrasound for this, went to walk-in clinic today and was sent to the ER, daughter requesting case management involvement to help him with bathing at home. Patient is endorsing pain in the lower abdomen, and pain in his scrotum as well as right inner thigh no fevers or chills no dysuria no hematuria no obstipation noted. This started after he lifted something heavy at that point this is a when he was seen in the emergency department. Related Data Home Medications ?Medication ?Instructions ?Recorded ?Confirmed acetaminophen 500 mg tablet 500 mg PO Q6H PRN 01/30/25 magnesium 200 mg tablet 500 mg PO DAILY 01/30/25 Previous Rx's ?Medication ?Instructions ?Recorded furosemide 40 mg tablet (Lasix) 40 mg PO BID #120 tabs 09/17/24 atorvastatin 40 mg tablet 40 mg PO BEDTIME 90 days #90 tabs 02/06/25 finasteride 5 mg tablet (Proscar) 5 mg PO DAILY 90 day s #90 tabs 02/06/25 gabapentin 100 mg capsule 100 mg PO BID 20 days #40 ca ps 02/06/25 metoprolol succinate 25 mg 25 mg PO DAILY #90 tabs 10/02 tablet,extended release 24 hr spironolactone 25 mg tablet 25 mg PO DAILY #90 tabs tamsulosin 0.4 mg capsule 0.4 mg PO BEDTIME #90 caps 0 02/06/25 warfarin 2 mg tablet See Rx Instructions PO DAILY @1800 02/06/25 #120 tabs prednisone 20 mg tablet 40 mg (2 x 20 mg) PO QAM #10 tabs 02/12/25 tramadol 50 mg tablet 50 mg PO BID PRN pain 10 day s #20 02/20/25 tabs Allergies Allergy/AdvReac Type Severity Reaction Status Date / Time gabapentin Allergy Rash Verified 02/20/25 11:50 Review of Systems 2 Constitutional: Constitutional: Reports as per [facility] Past Medical History Medical History Tachy-garrison syndrome Hypertension, essential, benign Hyperlipidemia Atrial fibrillation Osteoarthritis Pacemaker (~2008) Current use of anticoagulant therapy Surgical History History of colonoscopy History of eye surgery History of appendectomy Status post left foot surgery (~02/2020) Amputated toe of left foot History of cardiac pacemaker History of cardiac radiofrequency ablation (RFA) Family History Family History (Reviewed 01/10/25 @ 10:46 by Abdiaziz Lopez [facility]) Father No problems noted. Mother No problems noted. Social History Social History Household Members: Spouse Housing: House Do you presently have visiting nurse or other home services: No Alcohol intake: current Alcohol intake frequency: a few times a week Alcohol type: beer Patient Tobacco Use Status: Former Tobacco user Years Smoked: 15 e-Cigarette/Vaping Use: Never Used Use of substances other than those prescribed or required for medical reasons: No Advance Directives: Yes Advance Directives on File: Yes Advance Directives Date on File: 09/27/22 Do you have a plan to hurt others: No Plan service: No Current occupational status: retired Hearing needs: No Vision needs: Yes (Glasses) Physical Exam ED Vital Signs: Vital Signs - 24 hr 02/20/25 11:47 02/20/25 12:00 02/20/25 14:27 Temperature 97.1 F 98.0 F 97.9 F Pulse Rate 50 73 97 Respiratory Rate 16 16 18 Blood Pressure 106/60 131/68 128/86 Pulse Oximetry 97 96 95 Oxygen Delivery Method Room Air Room Air Room Air Oxygen Flow Rate 02/20/25 15:25 02/20/25 15:26 02/20/25 16:18 Temperature 97.5 F Pulse Rate 72 Respiratory Rate 14 15 18 Blood Pressure 117/76 Pulse Oximetry 88 L 96 96 Oxygen Delivery Method Room Air Nasal Cannula Nasal Cannula Oxygen Flow Rate 2 2 BMI result Body Mass Index 26.7 Const Other: * Gen: ?Overall well-appearing patient * Resp: ?No wheezing rales rhonchi no stridor moving air well * Abd: ?Bowel sounds are present, tender in the lower part of his abdomen, small reducible periumbilical hernia * ; normal penis and testicles but reports tenderness, there was no edema * MSK: Tenderness along inner thigh on the right side with soft compartments distal pulses intact full range of motion of hips * Skin: Warm, dry, intact, * Neuro: ?Alert and oriented x3, moving upper and lower extremities symmetrically, no obvious facial asymmetry noted Course Course Course Narrative: 02/20/25 1151 CAIN Kaye This is a Rapid Medical Examination (RME) performed by Theron Foss PA-C in triage. Full HPI, ROS, assessment and treatment plan per primary provider in the Main ED. Hx: 89 yo M hx of CHF, HTN, HLD, afib on coumadin here from walk in for eval of severe R scrotal pain rad into abdomen and down R thigh x1 month, worsening. seen here 3 wks ago, treated for epididymitis. also reports mid back pain radiating down RLE - told it's nerve pain. PE/vitals: Unsteady on feet d/t pain. Unable to fully examine patient in triage. ssrs report developer aware, the patient to be brought back to room. Plan: labs, UA, scrotal US Medications Administered Discontinued Medications Generic Name Dose Route Start Last Admin Trade Name Jackie PRN Reason Stop Dose Admin Acetaminophen 975 mg 02/20/25 12:31 02/20/25 12:43 Acetaminophen 325 Mg Tablet PO 02/20/25 12:32 975 mg ONCE ONE Administration Hydromorphone HCl 0.5 mg 02/20/25 14:24 02/20/25 14:44 Hydromorphone Hcl 0.5 Mg/0.5 Ml Syringe IVPUSH 02/20/25 14:25 0.5 mg ONCE ONE Administration Protocol Acetaminophen 1,000 mg in 100 mls @ 400 mls/hr 02/20/25 14:25 02/20/25 15:51 Ofirmev IV 02/20/25 14:39 Infused ONCE ONE Infusion Lidocaine 1 patch 02/20/25 14:25 02/20/25 14:45 Lidocaine 4 % Patch Adh..Patch TRANSDERMA 02/20/25 14:26 1 patch ONCE ONE Administration Protocol Ondansetron HCl 4 mg 02/20/25 14:24 02/20/25 14:45 Ondansetron Hcl 4 Mg/2 Ml Vial IVPUSH 02/20/25 14:25 4 mg ONCE ONE Administration Oxycodone HCl 5 mg 02/20/25 12:29 02/20/25 12:43 Oxycodone Hcl Immed Release 5 Mg Tablet PO 02/20/25 12:30 5 mg ONCE ONE Administration Medical Decision Making Medical Decision Making [facility] Narrative: Patient was seen for just the same issue at the end of last month, he does have epididymitis, no hernias on exam, he had CT that showed L1-L2 compressive fractures, we will repeat ultrasound of the testicles to make sure there is no torsion or fluid collection, did not feel further imaging such as CT needs to be obtained at this time he has had it during his prior visit and there were no evidence for obstruction or malignancy, we will obtain x-rays to evaluate for arthritic pain or avascular necrosis of right hip. 14:22 x-ray of the hip is unremarkable, patient re-examined I had a lengthy discussion with the patient's daughter regarding what I can I can not achieve in the emergency department care of setting, they were not interested in rehab placement for patient, as they feel this not going to help, there was can see his urologist tomorrow they are still asking me what is the cause of his pain I believe his pain is likely related to back pain does not really answer why he is having pain in his abdomen, he has had CTs without any obstruction, AAA, he has soft diagnosis of epididymo-orchitis on the left based on ultrasound today, his pain is over hip, right SI, he has no sensory deficits in the groin area or his buttock area, and he reports that his left lower extremities numb but that seems to be more in a stocking distribution on the right side more consistent with neuropathy. Patient needs outpatient MRI, there is no indication for emergent MRI, he has no clinical evidence for cauda equina. 16:37 I discussed with the patient's at this point he is going to stay for case management PT evaluation, his pain is under better control and we have established good rapport with patient's as to what patient needs, she also contact her PCP to make sure they can start considering authorization for outpatient MRI Differential Diagnosis Differential Diagnoses: The differential diagnosis associated with the presentation includes Hip arthritis, back pain, renal colic, scrotal torsion, epididymitis Admission/Observation Consideration of admission/observation: Escalation of care including admission/observation considered Lab Data 02/20/25 11:58 02/20/25 11:58 Labs: Lab Results 02/20/25 02/20/25 Range/Units 11:58 15:51 WBC 7.2 (4.8-10.8) X10*3/uL RBC 4.28 L (4.60-5.80) X10*6/uL Hgb 12.6 L (14.0-18.0) g/dl Hct 37.8 L (42.0-52.0) % MCV 88.3 (80.0-98.0) fL MCH 29.4 (27.0-33.0) pg MCHC 33.3 (31.0-36.0) g/dl RDW 14.7 (11.0-16.0) % Plt Count 192 (160-400) X10*3/uL MPV 9.4 (9.4-12.4) fL Immature Gran % (Auto) 0.4 (0.0-0.4) % Neut % (Auto) 62.1 (45-73) % Lymph % (Auto) 26.6 (20-40) % Pine % (Auto) 8.2 (2-11) % Eos % (Auto) 2.4 (0-4) % Baso % (Auto) 0.3 (0-2) % Lymph # (Auto) 1.9 (1.2-4.9) X10*3/uL Pine # (Auto) 0.6 (0.1-1.2) X10*3/uL Eos # (Auto) 0.2 (0.0-0.4) X10*3/uL Baso # (Auto) 0.0 (0.0-0.2) X10*3/uL Abs Immat Gran (auto) 0.03 (0.00-0.03) X10*3/uL Absolute Neuts (auto) 4.5 (2.0-8.3) x10*3/uL Absolute Nucleated RBC 0.000 (0.0-0.012) X10*3/uL Nucleated RBC % (auto) 0.0 (0.0-0.2) /100WBC Sodium 139 (135-145) mmol/L Potassium 4.0 (3.3-5.1) mmol/L Chloride 107 (96-108) mmol/L Carbon Dioxide 26 (22-29) mmol/L Anion Gap 10 L (12-20) BUN 15 (9-16) mg/dL Creatinine 0.97 (0.5-1.4) mg/dL Estim Creat Clear Calc 61.7 Estimated GFR > 60 Random Glucose 93 (60-115) mg/dL Calcium 9.2 (8.4-10.2) mg/dL Magnesium 2.1 (1.6-2.6) mg/dL Total Bilirubin 1.0 (0.0-1.0) mg/dL AST 24 (5-37) U/L ALT 18 (0-40) U/L Alkaline Phosphatase 71 (39-117) U/L Total Protein 6.8 (6.5-8.0) g/dL Albumin 3.9 (3.5-5.0) g/dL Urine Color Yellow Urine Appearance Clear Urine pH 8.0 (5.0-9.0) Ur Specific [place] 1.020 (1.005-1.025) Urine Protein Trace (Neg-Trace) mg/dL Urine Glucose (UA) Negative (Negative) mg/dL Urine Ketones Negative (Negative) mg/dL Urine Blood Large (3+) H (Negative) Urine Nitrite Negative (Negative) Ur Leukocyte Esterase Negative (Negative) Urine RBC >20 H (0-2) /HPF Urine WBC 0-5 (0-5) /HPF Ur Squamous Epith Cells 0-2 (0-2) /HPF Urine Bacteria None Seen (None Seen) Hyaline Casts 0-2 (0-2) /LPF Discharge Plan Discharge Clinical Impression: Low back pain, Pain in scrotum Prescriptions: No Action magnesium 200 mg tablet 500 mg PO DAILY acetaminophen 500 mg tablet 500 mg PO Q6H PRN warfarin 2 mg tablet See Rx Instructions PO DAILY@1800 Qty: 120 1RF Protocol: Dose Management Condition: Tuesday (Week One) Dose/Route: 2 mg Instruction: 1 x 2 mg tablet Condition: Tuesday Dose/Route: 4 mg Instruction: 2 x 2 mg tablets Condition: Tuesday Dose/Route: 2 mg Instruction: 1 x 2 mg tablet Condition: Tuesday Dose/Route: 4 mg Instruction: 2 x 2 mg tablets Condition: Dose/Route: 2 mg Instruction: 1 x 2 mg tablet Condition: Tuesday Dose/Route: 4 mg Instruction: 2 x 2 mg tablets Condition: Tuesday Dose/Route: 2 mg Instruction: 1 x 2 mg tablet Condition: Tuesday (Week Two) Dose/Route: 2 mg Instruction: 1 x 2 mg tablet Condition: Tuesday Dose/Route: 4 mg Instruction: 2 x 2 mg tablets Condition: Tuesday Dose/Route: 2 mg Instruction: 1 x 2 mg tablet Condition: Tuesday Dose/Route: 4 mg Instruction: 2 x 2 mg tablets Condition: Dose/Route: 2 mg Instruction: 1 x 2 mg tablet Condition: Tuesday Dose/Route: 4 mg Instruction: 2 x 2 mg tablets Condition: Tuesday Dose/Route: 2 mg Instruction: 1 x 2 mg tablet Protocol Text: Adjustment Start Date: Tuesday01/11/25 INR Value: 2.8 INR Date: 01/11/25 Recheck Date: 02/10/25 Rx Instructions: 1-2 tabs based on INR results orally DAILY@1800; atorvastatin 40 mg tablet 40 mg PO BEDTIME 90 Days Qty: 90 1RF metoprolol succinate 25 mg tablet extended release 24 hr 25 mg PO DAILY Qty: 90 1RF tamsulosin 0.4 mg capsule 0.4 mg PO BEDTIME Qty: 90 3RF finasteride [Proscar] 5 mg tablet 5 mg PO DAILY 90 Days Qty: 90 3RF spironolactone 25 mg tablet 25 mg PO DAILY Qty: 90 3RF gabapentin 100 mg capsule 100 mg PO BID 20 Days Qty: 40 0RF tramadol 50 mg tablet 50 mg PO BID PRN (Reason: pain) 10 Days Qty: 20 0RF furosemide [Lasix] 40 mg tablet 40 mg PO BID Qty: 120 4RF prednisone 20 mg tablet 40 mg PO QAM Qty: 10 0RF Print Language: Nepali
[2025-02-20 12:02] LABS: Hematocrit 37.8 % (42.0-52.0); Hemoglobin 12.6 g/dl (14.0-18.0); Imm Gran Abs Auto 0.03 X10*3/uL (0.00-0.03); Imm Gran Pct Auto 0.4 % (0.0-0.4); Lymphocytes Absolute Auto 1.9 X10*3/uL (1.2-4.9); MANUAL DIFF FLAG NO; Mean Corpuscular HGB Conc 33.3 g/dl (31.0-36.0); Mean Corpuscular Hemoglobin 29.4 pg (27.0-33.0); Mean Corpuscular Volume 88.3 fL (80.0-98.0); NRBC Abs Auto 0.000 X10*3/uL (0.0-0.012); NRBC Pct Auto 0.0 /100WBC (0.0-0.2); Platelet Count 192 X10*3/uL (160-400); Red Blood Count 4.28 X10*6/uL (4.60-5.80); White Blood Count 7.2 X10*3/uL (4.8-10.8)
[2025-02-20 12:16] LABS: Alanine Aminotransferase 18 U/L (0-40); Albumin Level 3.9 g/dL (3.5-5.0); Alkaline Phosphatase 71 U/L (39-117); Anion Gap 10 (12-20); Aspartate Amino Transferase 24 U/L (5-37); Blood Urea Nitrogen 15 mg/dL (9-16); Calcium 9.2 mg/dL (8.4-10.2); Carbon Dioxide 26 mmol/L (22-29); Chloride 107 mmol/L (96-108); Creatinine Clr Calc Pharmacy 61.7; Estimated Glomerular Filt Rate > 60; Magnesium 2.1 mg/dL (1.6-2.6); Potassium 4.0 mmol/L (3.3-5.1); Sodium 139 mmol/L (135-145); Total Protein 6.8 g/dL (6.5-8.0)
[2025-02-20] MEDS: oxyCODONE HCl Immed Release 5 MG TABLET PO (12:43)
--- NOTE | 2025-02-20 12:46 | MHC.CM.ED ---
Received case management consult from Dr Gonzales. Patient came to the ER due to weakness and abd pain. Work up essentially negative. Daughter requesting help at home with showering for patient. Met with patient and daughter, Janeth. Janeth verifies she is interested in getting additional help at home for her father. Also interested in meals on wheels for her father and mother. Referral will be made to [facility] to reach out to Janeth to discuss what patient and will qualify for. Patient and Janeth verbalize understanding. Dr Gonzales made aware. Continue to monitor for d/c needs.
[2025-02-20] MEDS: Lidocaine 4 % Patch ADH..PATCH 1 PATCH TRANSDERMA (14:45)
--- NOTE | 2025-02-20 15:39 | PC.NURSE ---
Pt received IV Dilaudid, reports pain has improved to tolerable level. Also reports mild dizziness and O2 sat noted to be 88% on room air, 2L O2 via NC applied and O2 sat improved to 96%
[2025-02-20 16:01] LABS: Appearance Urine Clear; Glucose Urine UA Negative (Negative); PH 8.0 (5.0-9.0); Specific Gravity - Urine 1.020 (1.005-1.025); UMIC TRIGGER UACC YES
[2025-02-21 05:49] VITALS: BP 135/74; PULSE 94; RESP 16; TEMP 36.9; O2SAT 96
[2025-02-21 07:49] VITALS: BP 130/77; PULSE 94; RESP 20; TEMP 36.6; O2SAT 97
--- NOTE | 2025-02-21 07:52 | PC.NURSE ---
Pt alert and oriented resting on stretcher. Pt reports 10/10 pain in his right hip and thigh, there is some noticeable bruising and swelling on inner right thigh with tenderness. Also has scrotum and abdominal pain. Had some relief with Tylenol this morning. He denies any other complaints. Breathing unlabored, skin p/w/d. VSS. Hes voiding clear yellow urine in urinal. Denies pain with urination. Plan of care on going.
[2025-02-21 08:37] LABS: Prothrombin Time 66.4 SEC (10.9-12.4)
[2025-02-21 08:43] LABS: INTERNATIONAL NORM RATIO 5.8 (0.9-1.1)
--- NOTE | 2025-02-21 08:47 | PC.NURSE ---
Med rec completed with daughter Janeth and pt, will ask pharmacy to double check med rec when able PT/INR ordered and drawn, will hold Coumadin today, INR 5
--- NOTE | 2025-02-21 10:35 | PHA.MEDREC ---
Addendum entered by So Owens, [facility] 02/21/25 10:46: Accidentally did not complete below note, but saved. Spoke with patients joey Fowler over the phone. Daughter read off list of medications her dad had in his wallet. The list may or may not be up to date. The list did not fully match up with pharmacy claim history. The daughter stated medications have been increased and decreased many times. I did reach out to the nurse at Dr. Tapia office and the patient is supposed to be on spironolactone 25 mg daily, furosemide 40 mg bid, metoprolol ER 50 mg daily and is NOT supposed to be taking diltiazem ( see note from 12/24/24). Patient has not filled diltiazem at pharmacy since 07/31. The patient was prescribed meclizine for dizziness but stopper per PCP. Dr. Vizcarra also increased atorvastatin from 20 mg to 40 mg on 12/12/24. The daughter states her dad missed his most recent coumadin appt because he could not get out of bed (left dosing for warfarin per previous coumadin clinic protocol). She also states her dad has been taking 1000 mg of tylenol Q6H around the clock. Miesha made aware of changes in med rec. Original Note: Pharmacy Consult ? Medication Reconciliation Pharmacy has completed the medication reconciliation. Spoke with patients joey Fowler over the phone. Daughter read off list of medications her dad had in his wallet. The list may or may not be up to date. The daughter stated medications have been increased and decreased
[2025-02-21] MEDS: Metoprolol Succinate ER 50 MG TAB.ER.24H PO (11:31)
[2025-02-21 12:42] VITALS: BP 130/77; PULSE 94; O2SAT 97
[2025-02-21 13:59] VITALS: BP 117/57; PULSE 93; RESP 18; TEMP 36.3; O2SAT 98
--- NOTE | 2025-02-21 14:43 | MHC.CM.ED ---
Patient remains in ER overflow. Physical therapy eval completed. Home with services is recommended. Spoke with patient's daughter, Janeth, via telephone at [phone]. Janeth will pick patient up outside of ER at 3pm. Patient was active with [facility] in the past. [facility] can accept patient. Per Eboni BARLOW, patient will need daily INR draws until back WNL. [facility] made aware. Patient, Radha HERNANDEZ and Eboni BARLOW aware. Continue to monitor for d/c needs.
[2025-02-21 15:00] VITALS: BP 117/57; PULSE 93; RESP 18; TEMP 36.3; O2SAT 98
== END 2025-02-21 15:02 | disposition home or self-care (01) ==
PROVIDERS: Physician Assistant Medical; Emergency Provider Emergency Medicine; PCP Nurse Practitioner Family
DX: R10.30 Lower abdominal pain, unspecified (principal); N50.812 Left testicular pain; N50.811 Right testicular pain; M54.50 Low back pain, unspecified; R26.81 Unsteadiness on feet; R10.2 Pelvic and perineal pain; Z79.899 Other long term (current) drug therapy; Z87.891 Personal history of nicotine dependence
CPT/HCPCS: 36415; 73502; 76870; 80053; 81001; 81003; 83735; 85025; 85610; 93975; 96365; 96375; 97161; 99212; 99285; J0131; J1171; J2405

== ENCOUNTER → 2025-02-20 11:49 | Outpatient (BNV) | payer MEDICARE, OTHER, SELFPAY | PROVIDERS: Emergency Provider Emergency Medicine; PCP Nurse Practitioner Family; Visit Provider Radiology Diagnostic Radiology | DX: N50.3 Cyst of epididymis (principal); M25.551 Pain in right hip | CPT/HCPCS: 73502 ==

== ENCOUNTER → 2025-02-26 23:59 | Outpatient (BNV) | payer MEDICARE, OTHER, SELFPAY ==
--- NOTE | 2025-03-24 20:59 | MHC.OFFVIS ---
Intake Visit Reasons: Remote device check- [facility] Allergies gabapentin Allergy (Verified 03/18/25 13:52) Rash [facility] Medical History Tachy-garrison syndrome Hypertension, essential, benign Hyperlipidemia Atrial fibrillation Osteoarthritis Pacemaker (~2008) Current use of anticoagulant therapy Surgical History History of colonoscopy History of eye surgery History of appendectomy Status post left foot surgery (~02/2020) Amputated toe of left foot History of cardiac pacemaker History of cardiac radiofrequency ablation (RFA) Family History Father No problems noted. Mother No problems noted. Social History Household Members: Spouse Housing: House Do you presently have visiting nurse or other home services: No Alcohol intake: current Alcohol intake frequency: a few times a week Alcohol type: beer Patient Tobacco Use Status: Former Tobacco user Years Smoked: 15 e-Cigarette/Vaping Use: Never Used Advance Directives Date on File: 09/27/22 service: No Current occupational status: retired Hearing needs: No Vision needs: Yes (Glasses) Office Procedures Cardiac Device Check Cardiac Device Check Details: PPM Good battery life No new alerts. [id number] Cardiac Device Interrogation, pacemaker Procedure code (CPT) selection complete Assessment & Plan Assessment & Plan (1) Pacemaker: Onset Date: ~2008 Comment: (Pacemaker SCPP- [facility] - Initial DCPP 2008, replaced/SCPP 2017) Code(s): Z95.0 - Presence of cardiac pacemaker Category: Medical Plan Coding Level of Care Code Procedure Only Diagnoses Pacemaker Z95.0 CPT Codes Cardiac Device Check - Cardiac Device 12: 14364-Nuramz Cardiac Device Interrogation, pacemaker ([id number])
== END ==
PROVIDERS: PCP Nurse Practitioner Family; Visit Provider Internal Medicine Cardiovascular Disease
DX: Z45.018 Encounter for adjustment and management of other part of cardiac pacemaker (principal)
CPT/HCPCS: 93294

== ENCOUNTER 2025-03-14 10:28 | Outpatient (AMB) | payer MEDICARE, OTHER, SELFPAY ==
--- NOTE | 2025-03-14 10:38 | MHC.OFFVIS ---
Intake Visit Reasons: 6m/PSA Intake Note: Patient presents today for 6m follow up/PSA 11/16 Total PSA: 7.94 Free PSA: 1.5 Urology Meds: Finasteride Allergies to Antibiotic: None Blood Thinner: Warfarin PVR:18ml Corporate Receptionist Required: No Accompanied by: Daughter Allergies gabapentin Allergy (Verified 04/23/25 14:09) Rash Medication List - Last Reconciled 03/14/25 by Chetna Armstrong MD acetaminophen 1,000 mg PO Q6H PRN amoxicillin-pot clavulanate 500-125 mg (Augmentin) 1 tab PO BID atorvastatin 40 mg PO BEDTIME finasteride (Proscar) 5 mg PO DAILY 90 days furosemide 40 mg PO BID magnesium 500 mg PO DAILY spironolactone 25 mg PO DAILY warfarin See Protocol 4MG MWF/2MG X 4 DAYS; 1-2 TABS DAILY PER INR PER ANTICOAG =60 TABS/ MONTH =180TABS 3 MONTH REFILL HPI Comments Details: 03/14/25-- History of Present Illness - The patient is an 89-year-old male presenting with vertebral fractures and associated pain. - The vertebral fractures occurred following a snowboarding accident where the patient fell and sustained fractures to L1 and L2. - The patient has experienced right testicular pain, initially suspected to be a urinary issue, but later attributed to nerve pain. - The patient has two hernias: hiatal and umbilical. - The patient has been to the emergency room twice for these issues, where various tests were conducted to rule out other conditions. - He had US scrotum on 02/20/25-findings c/w orchitis - The patient is currently on tramadol for pain management, with plans to visit pain management for further treatment. - The patient has a PSA level of 8.4, at age 89 plan is to continue to monitor conservatively, no plans for prostate bx at this time, and he is continuing on Proscar. Results - PSA level: 8.4 - Bladder scan: PVR -WNL - Scrotal US-02/20/25--Suspected right epididymoorchitis with mildly complex hydrocele. Left varicocele. Minimal microlithiasis in the left testicle. Plan - Initiate antibiotics for epididymitis for 7 to 10 days to address tenderness in the epididymis. - Continue Proscar for elevated PSA management 09/20/24-Zander is here for FU- 89 year old followed for BPH, obstructive voiding symptoms, workup for gross hematuria, the patient is on blood thinner Coumadin. CT imaging - 2 mm left kidney stone, the patient was started on Proscar, 09/22/2023. Zander is here with his daughter, states he was recently hospitalized for CHF, he has been started on Lasix 20 mg bid. Denies difficulty with voiding, denies UTI symptoms. 01/06/23--PSA -6.92. FU in 6months, will check PSA. Patient is not sure if he has been taking the tamsulosin. 12/22/2023--Zander is here for follow-up. 88-year-old male followed for BPH, obstructive voiding symptoms, workup for gross hematuria, the patient is on blood thinner Coumadin. CT imaging - 2 mm left kidney stone, the patient was last seen in the office 09/22/2023 and was started on Proscar. Heron is here with his daughter and states he has been doing well on the medication voiding without difficulty. Bladder scan PVR is 15 mL. I have discussed that if the stone in the left kidney moves he may get flank pain and see blood in the urine into contact the office. 09/22/23- Zander is here for Follow up, he is being followed for BPH, incomplete bladder emptying and hematuria, He has a PMH of atrial fibrillation, hyperlipidemia, hypertension, osteoarthritis, and has a pacemaker. He had office cysto on 07/20/23, no suspicious bladder lesions. Bladder scan PVR 117 mL. Plan proscar 5 mg daily ordered. 07/20/23-- CYSTOSCOPY - mild Trabeculation, bruising noted to bladder mucosa, multifocal areas, may represent changes from prior catheter, prostatic urethra non obstructive, bulbous urethra WNL, no suspicious bladder lesions visualized. 07/14/23- seen by PHOTO MASK CLEANER Zander is a pleasant 87-year-old male patient of Dr. Vizcarra who was accompanied by his daughter at today's office visit. He has a PMH of atrial fibrillation, hyperlipidemia, hypertension, osteoarthritis, and has a pacemaker. He presents to the office today for follow-up of his gross hematuria. In discussion with the patient today reports having seeked emergency room care approximately 3 weeks ago for gross hematuria at which time a CT was ordered and performed. These results reviewed with the patient his daughter today. 2 mm nonobstructing left renal calculus. No hydronephrosis. Irregular shaped hyperdense focus which appears to be within the lumen of the bladder which measures approximately 2.1 x 1.0 x 2.2 cm. This is a nonspecific finding. This may represent a blood clot or bladder mass is also within the differential. Of note, patient was seen in the office approximately 6 months ago for an elevated PSA at which time recommendations were made for redraw of PSA as well as retroperitoneal ultrasound however it does not appear patient to have completed recommendations. Discussed and stressed the importance of following up for continuity of care as well as overall health and well-being. 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 He also reports a previous smoking history however quit over 40 years ago. He reports having smoked for approximately 15-20 years no more than half a pack per day. Imaging: CTAP 1. 2 mm nonobstructing left renal calculus. No hydronephrosis. 2. Irregularly-shaped hyperdense focus which appears to be within the lumen of the bladder which measures approximately 2.1 x 1.0 x 2.2 cm. PSA results--- 06/28--1.3 04/29--3.2 10/28--5.7 [facility] Medical History Tachy-garrison syndrome Hypertension, essential, benign Hyperlipidemia Atrial fibrillation Osteoarthritis Pacemaker (~2008) Current use of anticoagulant therapy Surgical History History of colonoscopy History of eye surgery History of appendectomy Status post left foot surgery (~02/2020) Amputated toe of left foot History of cardiac pacemaker History of cardiac radiofrequency ablation (RFA) Family History Father No problems noted. Mother No problems noted. Social History Household Members: Spouse Housing: House Do you presently have visiting nurse or other home services: No Alcohol intake: current Alcohol intake frequency: a few times a week Alcohol type: beer Patient Tobacco Use Status: Former Tobacco user Years Smoked: 15 e-Cigarette/Vaping Use: Never Used Advance Directives Date on File: 09/27/22 service: No Current occupational status: retired Hearing needs: No Vision needs: Yes (Glasses) Review of Systems Const All systems reviewed & are unremarkable except as noted in HPI and below Reports no additional complaints Eyes Reports no additional complaints ENT Reports no additional complaints Card Reports no additional complaints Resp Reports no additional complaints GI Reports no additional complaints Reports as per HPI Musc Reports no additional complaints Skin/Breast Reports system reviewed and no additional complaints, except as documented Neuro Reports no additional complaints Psych Reports no additional complaints Endo Reports no additional complaints Ike/Lymph Reports no additional complaints Aller/Immun Reports no additional complaints Assessment & Plan Assessment & Plan (1) Testicular pain, right: Code(s): N50.811 - Right testicular pain Category: Medical (2) Epididymo-orchitis: Code(s): N45.3 - Epididymo-orchitis Category: Medical (3) Elevated PSA: Code(s): R97.20 - Elevated prostate specific antigen [PSA] Category: Medical (4) Enlarged prostate: Code(s): N40.0 - Benign prostatic hyperplasia without lower urinary tract symptoms Category: Medical (5) BPH with elevated PSA: Code(s): N40.0 - Benign prostatic hyperplasia without lower urinary tract symptoms; R97.20 - Elevated prostate specific antigen [PSA] Category: Medical Plan Plan - Initiate antibiotics for epididymitis for 7 to 10 days to address tenderness in the epididymis. - Continue Proscar for elevated PSA management Orders: Orders AMB Post Void Residual by ultrasound 03/14/25 N40.0 - Benign prostatic hyperplasia without lower urinary tract symptoms, N45.3 - Epididymo-orchitis, R97.20 - Elevated prostate specific antigen [PSA] Medications: New amoxicillin-pot clavulanate 500-125 mg (Augmentin) 1 tab PO BID 20 tabs 0RF Refilled finasteride (Proscar) 5 mg PO DAILY 90 tabs 3RF 90 days C61 - Malignant neoplasm of prostate Patient Instructions: The patient had an opportunity to ask questions regarding treatment plan. The patient expressed understanding and agreement with the above treatment plan. The patient is aware they should contact our office by phone for worsening of their current condition or the appearance of new symptoms. Compliance is encouraged with any medications and followup testing that is ordered. It is a privilege to be allowed the opportunity to participate in the urologic care of your patient. If you have any questions or concerns regarding treatment for the above conditions please do not hesitate to contact me. The office telephone contact is [phone]. This note is constructed in part using voice recognition software. While every effort has been made to ensure accuracy syrup maker cook errors may have been included. Yours sincerely, Chetna Armstrong MD Scribe Plan - Not visible on output: Patient was informed and verbally consented to the use of an ambient scribe for clinic note documentation during this visit. Coding Level of Care Code Est Pt Level 4 (97803) Complex EM visit Add On G2211 Diagnoses Testicular pain, right N50.811 Epididymo-orchitis N45.3 Elevated PSA R97.20 Enlarged prostate N40.0 BPH with elevated PSA N40.0; R97.20
== END 2025-03-14 11:03 | disposition home or self-care (01) ==
LOC: HO.HUSH 10:29
PROVIDERS: PCP Nurse Practitioner Family; Visit Provider Urology
DX: N50.811 Right testicular pain (principal); N45.3 Epididymo-orchitis; R97.20 Elevated prostate specific antigen [PSA]; N40.0 Benign prostatic hyperplasia without lower urinary tract symptoms
CPT/HCPCS: 99214; G2211

== ENCOUNTER → 2025-03-14 10:28 | Outpatient (BNVA) | payer MEDICARE, OTHER, SELFPAY | PROVIDERS: PCP Nurse Practitioner Family; Visit Provider Urology | DX: N50.811 Right testicular pain (principal); N45.3 Epididymo-orchitis; N40.0 Benign prostatic hyperplasia without lower urinary tract symptoms; R97.20 Elevated prostate specific antigen [PSA] | CPT/HCPCS: 99212 ==

== ENCOUNTER 2025-03-15 10:25 | Outpatient (AMB) | payer MEDICARE, OTHER, SELFPAY ==
--- OUTSIDE RECORDS SUMMARY | 2023-10-05 05:30 | XMS_ITS ---
Author Organization [facility] Address [address] [place] [address] Care Team Providers Care Machine Worker Name Role Phone Romain Glez Primary Care Provider Unav Bel Zazueta Unavailable [phone] Sebastian Smith [phone] REASON FOR VISIT r/s taken off cx list Encounters Encounter Location Date Provider Diagnosis [address] [address] 10/05/2023 Sebastian Smith Plan Of Treatment Next Appt Details Provider Name:Bel Kramer alyson, 04/03/2025 09:30:00 AM, [address] [place] [address], [phone], Progress Notes * Zander GRIDER LDOB: [birth year] (89 yo M)Acc No.[id number]:10/05/2023 Progress Notes Patient: Zander BINGHAM Provider: Francis Smith DPM :1935 A ge:88 Y S ex:Male Date:10/05/2023 Address:[address] [place], [place] [address] [place], [phone] Pcp:FRIDA Le Subjective: * Chief Complaints: * [...] 10/05/2023 Generated for Latha Case on: 0 03/15/2025 10:29 AM EDT
--- NOTE | 2025-03-15 10:29 | A.OFFVIS_ITS ---
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 Required: No Accompanied by: Child Allergies gabapentin Allergy (Verified 03/18/25 13:52) Rash Medication List - Last Reconciled 03/15/25 by Eboni Ochoa LPN acetaminophen 1,000 mg PO Q6H PRN amoxicillin-pot clavulanate 500-125 mg (Augmentin) 1 tab PO BID atorvastatin 40 mg PO BEDTIME finasteride (Proscar) 5 mg PO DAILY 90 days furosemide 40 mg PO BID magnesium 500 mg PO DAILY spironolactone 25 mg PO DAILY warfarin See Protocol 4MG MWF/2MG X 4 DAYS; 1-2 TABS DAILY PER INR PER ANTICOAG =60 TABS/ MONTH =180TABS 3 MONTH REFILL HPI HPI Wedge Compression Fracture: Details: History of Present Illness The patient is an 89-year-old male presenting with severe back pain following a vertebral fracture at L1-L2. The fracture likely occurred during a fall while snowblowing last winter, but symptoms were initially mild. In January, while lifting an air conditioner, the pain significantly worsened, indicating possible exacerbation of the fracture. The patient has been experiencing excruciating pain since January, with episodes severe enough to cause crying, which is unusual for him. He has been to the ER twice, where a CTAP scan confirmed the L1-L2 fracture. Initial treatment with Dilaudid was discontinued due to adverse effects, and he is currently on tramadol. The patient also has a history of congestive heart failure and atrial fibrillation, which complicates his management. He cannot undergo MRI due to a pacemaker, and his pain management is further complicated by these conditions. Pain Description - Onset: Pain began after a fall last winter, worsened significantly in January. - Quality: Described as excruciating, causing crying. - Location: Lower back, radiating to the right testicle and causing right leg numbness. - Exacerbating factors: Lifting heavy objects such as an air conditioner. - Relieving factors: Tramadol provides some relief. Physical Exam - Musculoskeletal: Tenderness noted at L1 region Results - CT scan: L1-L2 vertebral fracture; no dedicated spine imaging available - Ultrasound: No abnormalities found in the groin area despite pain Pain Management - Affect: Pain severe enough to cause crying, impacting emotional well-being. - Analgesia: Currently using tramadol; previous use of Dilaudid discontinued due to adverse effects. - Adverse Effects: Dilaudid caused significant blood pressure drop and sedation. - Activities of Daily Living: Pain interferes with mobility and daily activities. - Aberrant Drug Related Behaviors: None reported. [facility] Medical History Tachy-garrison syndrome Hypertension, essential, benign Hyperlipidemia Atrial fibrillation Osteoarthritis Pacemaker (~2008) Current use of anticoagulant therapy Surgical History History of colonoscopy History of eye surgery History of appendectomy Status post left foot surgery (~02/2020) Amputated toe of left foot History of cardiac pacemaker History of cardiac radiofrequency ablation (RFA) Family History Father No problems noted. Mother No problems noted. Social History Household Members: Spouse Housing: House Do you presently have visiting nurse or other home services: No Alcohol intake: current Alcohol intake frequency: a few times a week Alcohol type: beer Patient Tobacco Use Status: Former Tobacco user Years Smoked: 15 e-Cigarette/Vaping Use: Never Used Advance Directives Date on File: 09/27/22 service: No Current occupational status: retired Hearing needs: No Vision needs: Yes (Glasses) Physical Exam Vital Signs: Last Vital Signs Pulse 95 03/15/25 10:37 Resp 16 03/15/25 10:37 BP 109/60 03/15/25 10:37 Pulse Ox 97 03/15/25 10:37 Oxygen Delivery Method Room Air 03/15/25 10:37 BMI result Body Mass Index 27.5 Results AMB INR Fingerstick AMB INR Fingerstick 3.0 Last Edit by Karina Epperson RN on 03/15/25 14:10 [facility] Assessment & Plan Assessment & Plan (1) Lumbar compression fracture: Code(s): S32.000A - Wedge compression fracture of unspecified lumbar vertebra, initial en counter for closed fracture Category: Medical Plan Plan - Order a dedicated CT of the lumbar spine to further evaluate the fracture. - Continue tramadol for pain management; primary care to manage medication refills. - Consider lidocaine patches for additional pain relief. - Schedule a follow-up video visit after the CT scan to discuss further management. Patient was informed and verbally consented to the use of an ambient scribe for clinic note documentation during this visit. Discussion Notes I discussed with the patient and his daughter the current management plan, including the need for a dedicated CT scan of the lumbar spine to assess the fracture further. We reviewed the limitations of insurance coverage for kyphoplasty for traumatic VCF and the alternative pain management strategies available, such as tramadol and lidocaine patches. I advised scheduling a follow-up video visit post-CT scan to evaluate the results and adjust the treatment plan accordingly. Patient Instructions - Continue taking tramadol as prescribed for pain relief. - Obtain lidocaine patches from the pharmacy for additional pain management. - Schedule and complete the CT scan of the lumbar spine. - Arrange a follow-up video visit after the CT scan to discuss results and next steps. Orders: Orders CT lumbar spine wo IV con 03/20/25 S32.000A - Wedge compression fracture of unspecified lumbar vertebra, initial encounter for closed fracture Coding Level of Care Code New Pt Level 4 (11801) Diagnoses Lumbar compression fracture S32.000A
--- OUTSIDE RECORDS SUMMARY | 2025-03-15 10:29 | XMS_ITS | Patient Health Record ---
Author Organization [facility] Billing Info Address [address] [place] [id number] Care Team Providers Care Log Rider Name Role Phone ALIYA STRICKLAND Unavailable [phone] Reason For Referral No Information Medications Medication [...] Problem Status W/U Status Risk Notes Problem 754782264 Presence of card iac pacemaker (Z95.0) Active confirmed Problem 87913011 Venous insuffici ency (I87.2) Active confirmed Problem 974054181 BMI 29.0-29.9,ad ult (Z68.29) Active confirmed Problem 432414210 terminal gauger curren t use of anticoagulant (Z79.01) Active confirmed Problem 322425724 Atrial fibrillat ion and flutter (I48.91) Active confirmed Problem 34808289 SSS (sick sinus syndrome) (I49.5) Active confirmed Problem 364376826 High risk medica tion use (Z79.899) Active confirmed Problem 016632807 Pure hypercholesterolemia (E78.00) Active confirmed Plan Of Treatment No Information Insurance Providers Payer Name Payer Address Payer Phone Subscriber Number Group Number Insured Name Patient Relationship to Insured Coverage Start Date Coverage End Date [place] PART B [address] [facility] [employer] [id number] Zander Celestin Self - patient is the insured 1 0 UNIC[employer] DOS PRIOR TO [id number] [address] [place], [place] [id number] Zander Celestin Self - patient is the insured 1 0 Medical (General) History Medical History History ICD Code Atrial fibrillation Atrial flutter High risk medications Sick sinus syndrome or Bradycardia s/p Pacemaker Venous insufficiency Encounter for long-term (current) use of 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s Surgical History Surgery Date(Month/Year) Cardiac pacemaker 2008 Ablasion
[2025-03-15 10:37] VITALS: BP 109/60; PULSE 95; RESP 16; O2SAT 97; BMI 27.5
== END 2025-03-15 11:22 | disposition home or self-care (01) ==
LOC: HO.PMC 10:26
PROVIDERS: PCP Nurse Practitioner Family; Referring Provider Internal Medicine; Visit Provider Internal Medicine
DX: S32.000A Wedge compression fracture of unspecified lumbar vertebra, initial encounter for closed fracture (principal)
CPT/HCPCS: 99204

== ENCOUNTER → 2025-03-15 10:25 | Outpatient (BNVA) | payer MEDICARE, OTHER, SELFPAY | PROVIDERS: PCP Nurse Practitioner Family; Referring Provider Internal Medicine; Visit Provider Internal Medicine | DX: S32.000A Wedge compression fracture of unspecified lumbar vertebra, initial encounter for closed fracture (principal); Z79.2 Long term (current) use of antibiotics; Z79.891 Long term (current) use of opiate analgesic; Z79.899 Other long term (current) drug therapy | CPT/HCPCS: 99202 ==

== ENCOUNTER 2025-03-20 12:37 | Outpatient (REF) | payer MEDICARE, OTHER, SELFPAY ==
--- OUTSIDE RECORDS SUMMARY | 2023-10-05 05:30 | XMS_ITS ---
Author Organization [facility] Address [address] [place] [address] Care Team Providers Care Supervisor Gelatin Plant Name Role Phone Romain Glez Primary Care Provider Unav Bel Zazueta Unavailable [phone] Sebastian Smith [phone] REASON FOR VISIT r/s taken off cx list Encounters Encounter Location Date Provider Diagnosis [address] [address] 10/05/2023 Sebastian Smith Plan Of Treatment Next Appt Details Provider Name:Bel Kramer alyson, 04/03/2025 09:30:00 AM, [address] [place] [address], [phone], Progress Notes * Zander GRIDER LDOB: [birth year] (89 yo M)Acc No.[id number]:10/05/2023 Progress Notes Patient: Zander BINGHAM Provider: Francis Smith DPM :1935 A ge:88 Y S ex:Male Date:10/05/2023 Address:[address] [place], [place] [address] [facility] [place], [phone] Pcp:FRIDA Le Subjective: * Chief Complaints: * [...] 10/05/2023 Generated for Latha Case on: 0 03/20/2025 01:10 PM EDT
--- NOTE | ~2025-03-20 | CT_ITS ---
CLINICAL HISTORY: S32.000A - Wedge compression fracture of unspecified lumbar vertebra, in... Exam: CT lumbar spine without IV contrast Comparison: None Findings: Osteoporosis. Acute to subacute compression fracture of L1 superior endplate, up to 25% vertebral height loss centrally, no retropulsion. Likely acute compression fracture of the L2 inferior endplate, subtle cortical step-off and linear lucency at the anterior inferior vertebral corner, up to 40% vertebral height loss, 3 mm posterior bulge of the inferior endplate causing mild central canal stenosis. Other osseous structures are intact. No traumatic malalignment or spondylolisthesis of lumbar spine. Multilevel vertebral osteophytes and facet arthrosis. Disc heights are mostly maintained. Paraspinal musculature unremarkable. Included abdominopelvic contents demonstrate no acute finding. Atherosclerotic disease noted. L1-2: No disc protrusion or bulge. No central canal stenosis or foraminal narrowing. L2-3: Diffuse annular disc bulge, mild central canal stenosis, moderate to severe foraminal narrowing, worse on the left. L3-4: Diffuse annular disc bulge, thickened ligamentum flavum. Multifactorial moderate to severe central canal stenosis, moderate left and severe right foraminal narrowing. L4-5: Diffuse annular disc bulge, markedly thickened ligamentum flavum, probably post laminotomy on the right. Severe central canal stenosis and foraminal narrowing bilaterally. L5-S1: Mild diffuse posterior disc bulge. Mild central canal stenosis and mild foraminal narrowing bilaterally. Impression: 1. Acute L2 inferior endplate compression fracture with 3 mm posterior bulge of the inferior endplate, up to 40% vertebral height loss. 2. Acute to subacute compression fracture L1 superior endplate up to 25% vertebral height loss. 3. Osteoporosis. 4. 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 This document has been electronically signed by: Zarina Muñoz MD on 03/21/2025 11:23:54
--- OUTSIDE RECORDS SUMMARY | 2025-03-20 13:11 | XMS_ITS | Patient Health Record ---
Author Organization [facility] Billing Info Address [address] [place] [address] Care Team Providers Care Belt Molder Name Role Phone ALIYA STRICKLAND Unavailable [phone] Reason For Referral No Information Medications Medication [...] Problem Status W/U Status Risk Notes Problem 151823846 Presence of card iac pacemaker (Z95.0) Active confirmed Problem 38868340 Venous insuffici ency (I87.2) Active confirmed Problem 358565972 BMI 29.0-29.9,ad ult (Z68.29) Active confirmed Problem 243852395 [facility] curren t use of anticoagulant (Z79.01) Active confirmed Problem 299973246 Atrial fibrillat ion and flutter (I48.91) Active confirmed Problem 62123601 SSS (sick sinus syndrome) (I49.5) Active confirmed Problem 587196949 High risk medica tion use (Z79.899) Active confirmed Problem 165839452 Pure hypercholesterolemia (E78.00) Active confirmed Plan Of Treatment No Information Insurance Providers Payer Name Payer Address Payer Phone Subscriber Number Group Number Insured Name Patient Relationship to Insured Coverage Start Date Coverage End Date MEDICARE [place] PART B [address] [facility] CA[place] DIMAS [id number] Zander Celestin Self - patient is the insured 1 0 UNICARE DOS PRIOR TO [id number] [address] [place], [place] [id number] Zander Celestin Self - patient is the insured 1 0 Medical (General) History Medical History History ICD Code Atrial fibrillation Atrial flutter High risk medications Sick sinus syndrome or Bradycardia s/p Pacemaker Venous insufficiency Encounter for long-term (current) use of 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s Surgical History Surgery Date(Month/Year) Cardiac pacemaker 2008 Ablasion
== END 2025-03-20 12:38 | disposition home or self-care (01) ==
LOC: HO.CT 12:37
PROVIDERS: PCP Nurse Practitioner Family; Visit Provider Internal Medicine
DX: S32.010D Wedge compression fracture of first lumbar vertebra, subsequent encounter for fracture with routine healing (principal)
CPT/HCPCS: 72131

== ENCOUNTER → 2025-03-20 12:40 | Outpatient (BNV) | payer MEDICARE, OTHER, SELFPAY | PROVIDERS: PCP Nurse Practitioner Family; Visit Provider Radiology Diagnostic Radiology | DX: S32.020A Wedge compression fracture of second lumbar vertebra, initial encounter for closed fracture (principal); S32.010A Wedge compression fracture of first lumbar vertebra, initial encounter for closed fracture; M47.816 Spondylosis without myelopathy or radiculopathy, lumbar region; M80.88XA Other osteoporosis with current pathological fracture, vertebra(e), initial encounter for fracture | CPT/HCPCS: 72131 ==

== ENCOUNTER 2025-04-03 10:54 | Outpatient (AMB) | payer MEDICARE, OTHER, SELFPAY ==
--- OUTSIDE RECORDS SUMMARY | 2023-10-05 05:30 | XMS_ITS ---
Author Organization [facility] Address [address] [place] [address] Care Team Providers Care User Support Analyst Name Role Phone Romain Glez Primary Care Provider Unav Bel Zazueta Unavailable [phone] Sebastian Smith [phone] REASON FOR VISIT r/s taken off cx list Encounters Encounter Location Date Provider Diagnosis [address] [address] 10/05/2023 Sebastian Smith Plan Of Treatment Next Appt Details Provider Name:Bel Kramer alyson, 07/15/2025 09:15:00 AM, [address] [place] [address], [phone], Progress Notes * Zander GRIDER LDOB: [birth year] (89 yo M)Acc No.[id number]:10/05/2023 Progress Notes Patient: Zander BINGHAM Provider: Francis Smith DPM :1935 A ge:88 Y S ex:Male Date:10/05/2023 Address:[address] [place], [place] [address] [place], [id number] Pcp:FRIDA Le Subjective: * Chief Complaints: * [...] 10/05/2023 Generated for Latha Case on: 0 04/03/2025 11:49 AM EDT
--- OUTSIDE RECORDS SUMMARY | 2025-04-03 05:00 | XMS_ITS ---
[facility] Organization [facility] Address [address] [place] [address] Care Team Providers Care Student Services Coordinator Name Role Phone Romain Glez Primary Care Provider Bel Cobos Unavailable [phone] Allergies Allergen (clinical drug ingredient) Drug/Non Drug [...] MG 1 tablet Orally Onc e a day; Duration: 30 day(s) Active Triamterene-HCTZ 75-50 MG 1 tablet in th e morning Orally Once a day; Duration: 30 day(s) Active Keflex 500 MG 1 capsule Orally stanford ry 12 hrs; Duration: 10 day(s) 01/31/2020 Not-Taking Atorvastatin Calcium 20 MG 1 tablet Orally Once a day; Duration: 30 day(s) Active dilTIAZem HCl ER 180 MG 1 capsule Orally Once a day; Duration: 30 day(s) Active Social History Tobacco Use: Social History Observation [...] ast year? No Points 0 Interpretation Negative Vital Signs Height 6 ft 3 in in 04/03/2025 Weight 220 lbs 04/03/2025 BMI 27.5 kg/m2 04/03/2025 Blood pressure systolic 128 mm Hg 04/03/20 Blood pressure diastolic 65 mm Hg 025 Procedures Procedure Date Ordered Date Performed Result Body Sit e 30877-SGUQQII NAIL, 6 OR MORE 04/03/2025 N/A 58730-HYSW SKIN LESIONS, 2 TO 4 04/03/2025 N/A Encounters Encounter Location Date Provider Diagnosis [facility] [address] [place] [address] 04/03/2025 Bel Evansaker Atherosclerosis of kake artery of both lower extremities, with unspecified presence of clinical manifestation I70.203 ; Tinea unguium B35.1 ; Pain in right toe(s) M79.674 and Pain in left toe(s) M79.675 Assessments Encounter Date Diagnosis (ICD Code) Assessment Notes Treatment Notes Treatment Clinical Notes Section Notes 04/03/2025 Atherosclerosis of kake artery of both lower extremities, with unspecified presence of clinical manifestation (ICD-10 - I70.203) Q7(A), Q8(2B), Q9(1B,2C) 04/03/2025 Tinea unguium (ICD-10 - B35.1) 04/03/2025 Pain in right toe(s) (ICD-10 - M79.674) 04/03/2025 Pain in left toe(s) (ICD-10 - M79.675) Plan Of Treatment Pending Test Test Name Order Date 41428-FFGAQLY NAIL, 6 OR MORE 04/03/2025 07076-UHNZ SKIN LESIONS, 2 TO 4 04/03/20 25 Next Appt Details Follow Up: 3 Months, Reason: Provider Name:Bel shields, 07/15/2025 09:15:00 AM, [address] [place], [address], Procedure Notes * Category Sub-Category Detail Notes [...] use of a nail nipper and/or dremel-type snuff grinder, to a more viable healthy nail plate [...] to maintain effectiveness in symptomatic relief - 00540 Keratoma Treatment Parring or Cutting o f [...] instrumentation by the physician of record - 70159 Progress Notes * Zander GRIDER LDOB: [birth year] (89 yo M)Acc No.[id number]:04/03/2025 Progress Note Patient: Zander BINGHAM Provider: Alice Beatty DPM :1935 A ge:89 Y S ex:Male Date:04/03/2025 Address:[address] [place], [place] [id number] Pcp:FRIDA Le Subjective: * Chief Complaints: * A t Risk FootcarePainful Nail(s) aggravated by shoes and causing difficulty standing/walking. * HPI: A t Risk footcare: Pt States Last PCP Visit: D ate 0 03/08/2025 * ROS: G eneral/Constitutional: Nausea d enies. V omiting d enies. H gera Thirst d enies. L oss appetite d enies. C hills d enies. F atigue d enies.?Fever d enies. N ight Sweats d enies. U nexplained weight loss d enies. U nexplained weight gain d enies. O phthalmologic: Blurred vision d enies. R ed eye d enies. ? H EENTM: Dentures a dmits. D izziness a dmits, denies, denies. G lasses/contacts a dmits, denies, denies. R etinopathy d enies, denies, denies.?Blurred/double vision d enies. T MJ d enies. D ischarge/drainage d enies. Implants d enies. S ore throat d enies, denies. D ental implants d enies, denies. H oscar of hearing a dmits. D ifficulty chewing/swallowing/speaking d enies.?Nose bleeds d enies, denies, denies. S ore mouth d enies, denies, denies. S wollen glands d enies. R espiratory: On Oxygen d enies, denies, denies. P neumonia/pleurisy?denies, denies, denies. B ronchitis d enies, denies, denies. E mphysema d enies, denies, denies. C oughing a dmits, denies, denies. C ough blood d enies, denies, denies. S hortness of breath d enies, denies, denies. W heezing a dmits, denies, denies. C ardiovascular: Pacemaker a dmits. M SOUND EFFECTS SUPERVISOR d enies. W PW d enies, denies, denies. C HF d enies, denies, denies. H eart attack d enies, denies, denies. S eptal defect d enies, denies, denies. R apid beat d enies, denies, denies. Chest pain d enies, denies, denies. A trial Fib. a dmits, denies, denies. M urmur/Palpitations a dmits, denies, denies. G astrointestinal: Hemorrhoids d enies, denies, denies. S tomach/Abdominal pain d enies, denies, denies. D ark blood stool d enies, denies, denies. I rritable bowel d enies, denies, denies. C onstipation d enies, denies, denies. D iarrhea denies, denies, denies. V omiting d enies. H ematology: Swelling d enies, denies, denies. C lots A dmits, denies. V aricose Veins a dmits. B ruising d enies, denies, denies. B leeding problem d enies, denies, denies. G enitourinary: Blood urine a dmits, denies, denies. F requent/Painfu/urination/bladder control d enies, denies, denies. K idney stones a dmits, denies, denies. I nfection (UTI) d enies, denies, denies. N ephropathy d enies, denies, denies. sex trans dis (STD) d enies, denies. P rostate a dmits, denies. M usculoskeletal: Hammertoes d enies, denies, denies. B unions d enies, denies, denies. S coliosis/kyphosis d enies. B ack Pain a dmits, denies. M uscle Cramps/ Resting a dmits, denies. M uscle cramps / walking a dmits, denies, denies. Generalized aches and pains d enies, denies, denies. W eakness a dmits, denies, denies. I nteg.: Wray d enies, denies, denies. S cars d enies, denies, denies. C orns/calluses d enies, denies, denies. I ngrown nails d enies, denies, denies. P ainful nails d enies, denies, denies. O pen Sores d enies, denies. R ashes d enies, denies, denies. N eurologic: Difficulty sleeping d enies, denies, denies. B ipolar?denies. B rain disorder d enies, denies, denies. N umbness a dmits, denies. B alance trouble a dmits, denies, denies. C onfusion d enies, denies, denies. F ainting/blackouts d enies. H eadache d enies. T ingling a dmits, denies. T remors d enies. * Medical History: * Surgical History: P acemaker 11/25/08Heart Ablations 2006,2008HT L2nd, Skin Ulcer L 02/07/2020cataracts * Hospitalization/Major Diagno stic Procedure: I mpacted bowls 04/02/2025 * Family History: M other: , kidney removed, diagnosed with Unspecified essential hypertension, Unspecified heart disease. F ather: , poor circulation, diagnosed with Unspecified essential hypertension, Unspecified heart disease. S iblings: diagnosed with Family history of arthritis.? * Social History: T obacco Use: T obacco use other than smoking A re you an other tobacco user? N o Tobacco Control (Standard) T obacco use: N onsmoker A dditional Findings: Tobacco non-user C urrent nonsmoker M iscellaneous: C affeine: yes, frequency:, 1 cups per day. Children: yes, 5. Exercise: yes, gardening/yard work. Marital status: . Occupation: Retired. D rug/Alcohol: A OSCAR-C (Standard) D id you have a drink containing alcohol in the past year? N o P oints 0 I nterpretation N egative * Medications: T akingWarfarin Sodium 2 MG Tablet 1 tablet Orally Once a day Triamterene-HCTZ 75- 50 MG Tablet 1 tablet in the morning [...] reviewed and reconciled with the patient * Allergies: S easonal ICPenicillinAspirin: on warfarinMotrin: heart medsAdvil: heart medsAleve: heart medsyes[Allergies Verified] Objective: * Vitals: H t: 6 ft 3 in, Wt:220, BMI: 27.5, Shoe size:11.5, BP:128/65mm Hg, Wt-k.79 kg. * Examination: V ascular: DP PULSES (B): 0/4, B/L. PT PULSES (B): 0/4, B/L. CAPILLARY FILL TIME: delayed, all digits, B/L. TROPHIC CONDITION-TEXTURE/ELASTICITY/TURGOR/HAIR GROWTH (B):? decreased, fragile, thin, shiny skin, with sparse to absent hair growth, B/L. TEMPERTURE GRADIENT (C): decreased, cool to cool, proximal to distal, B/L. PIGMENTATION: h emosiderin deposition B/L. EDEMA (C): a bsent, B/L. CLAUDICATION (C): d enies, B/L. REST PAIN: d enies, B/L. PARESTHESIA (C): a bsent, B/L. BURNING (C): a bsent, B/L. N ails: NAILS are: E longated, overgrown, dystrophic, lytic, greater than 3mm thick, discolored and friable with crumbly malodorous subungual debris, with pain on palpation, TA, T1, T2, T3, T4, T5, T6, T7, T8, T9. D ermatologic: SKIN FINDINGS: S kin exam reveals Keratotic lesion(s) located at plantar heels B/L. O rthopedic: MUSCLE STRENGTH: 5 /5 all groups in a symmetrical fashion, B/L. N eurological: SENSORY: N eurological exam reveals intact sensorium, pain sensation normal, vibration sensation intact, pinprick sensation is normal in the lower extremities, Pt denies, anesthesia, burning, paresthesia, tingling, B/L. G eneral Examination: GENERAL APPEARANCE: Brian reynolds a pleasant, alert, well nourished, well-developed, well hydrated individual, who demonstrates proper attention to hygiene/body habitus, and is in no acute distress, Pt serves as own historian for office visit today. ORIENTED: p erson, place, and time. Assessment: * Assessment: 1. A therosclerosis of kake artery of both lower extremities, with unspecified presence of clinical manifestation - I70.203 (Primary) N otes :Q7(A), Q8(2B), Q9(1B,2C) 2 . T inea unguium - B35.1 3 . P ain in right toe(s) - M79.674 4 . P ain in left toe(s) - M79.675 Plan: * Treatment: 2. T inea unguium P rocedure: 91361-UUAHBEL NAIL, 6 OR MORE * Procedures: D ebride Nail 6-10: Nail debridement D ue to the clinical pathology outlined in the [...] use of a nail nipper and/or dremel-type snuff grinder, to a more viable healthy nail plate [...] to maintain effectiveness in symptomatic relief - 87375. K eratoma Treatment: Parring or Cutting of Benign Hyperkeratotic Lesion(s) ( -56) 2-4 Lesions - Due to the at [...] instrumentation by the physician of record - 80459. * Procedure Codes: 1 1721 DEBRIDE NAIL, 6 OR MORE, Modifiers: XS 21549 TRIM SKIN LESIONS, 2 TO 4, Modifiers: XS , Q8 * Follow Up: 3 Months * Images: * Sign off status: Completed true * Provider: Alice Beatty DPM Date: 04/03/2025 Generated for Latha jerry/Edie/Vickyitting on: 0 04/03/2025 11:49 AM EDT History and Physical Notes * [...] visit today ORIENTED: person, place, and t [facility] DP PULSES (B): 0/4, B/L PT [...]
--- NOTE | 2025-04-03 11:27 | MHC.OFFVIS ---
Vital Signs 04/03/25 11:29 Height 6 ft 3 in Weight 220 lb BMI 27.5 BP 100/60 Blood Pressure Location Lt brachial Position Sitting Respiration 16 Pulse 88 Pulse Source Pulse Oximeter Pulse Oximetry (%) 99 Oxygen Delivery Method Room Air Intake Visit Reasons: CT FOLLOW UP Coke Wheeler Required: No Accompanied by: Child Allergies gabapentin Allergy (Verified 04/03/25 11:30) Rash Medication List - Last Reconciled 04/03/25 by Eboni Ochoa LPN acetaminophen 1,000 mg PO Q6H PRN atorvastatin 40 mg PO BEDTIME finasteride (Proscar) 5 mg PO DAILY 90 days furosemide 40 mg PO BID magnesium 500 mg PO DAILY menthol 8% (Stopain) ea topical metoprolol succinate ER 25 mg PO DAILY spironolactone 25 mg PO DAILY tramadol 50 mg PO TID PRN 10 days warfarin See Protocol 4MG MWF/2MG X 4 DAYS; 1-2 TABS DAILY PER INR PER ANTICOAG =60 TABS/ MONTH =180TABS 3 MONTH REFILL HPI HPI CT FOLLOW UP: Details: History of Present Illness The patient is an 89-year-old male presenting with a follow-up for a lumbar CT scan for a vertebral compression fracture. The CT scan revealed a compression fracture of the L2 vertebral body, and there is a suspicion of osteoporosis based on the bone quality observed in the scan. A DEXA scan has been ordered to confirm osteoporosis, which would guide further treatment options such as kyphoplasty. The patient has a history of congestive heart failure and atrial fibrillation, which complicates surgical interventions. There is concern regarding the patient's ability to undergo surgery due to these conditions, but kyphoplasty could potentially be performed under local anesthesia or with light sedation. Management of anticoagulation therapy, specifically with warfarin, is crucial, and coordination with the patient's application specialist is necessary to safely proceed with any surgical intervention. Physical Exam - Wheelchair bound at this time Results - CT scan: Compression fracture of the L2 vertebral body [facility] Medical History Tachy-garrison syndrome Hypertension, essential, benign Hyperlipidemia Atrial fibrillation Osteoarthritis Pacemaker (~2008) Current use of anticoagulant therapy Surgical History History of colonoscopy History of eye surgery History of appendectomy Status post left foot surgery (~02/2020) Amputated toe of left foot History of cardiac pacemaker History of cardiac radiofrequency ablation (RFA) Family History Father No problems noted. Mother No problems noted. Social History Household Members: Spouse Housing: House Do you presently have visiting nurse or other home services: No Alcohol intake: current Alcohol intake frequency: a few times a week Alcohol type: beer Patient Tobacco Use Status: Former Tobacco user Years Smoked: 15 e-Cigarette/Vaping Use: Never Used Advance Directives Date on File: 09/27/22 service: No Current occupational status: retired Hearing needs: No Vision needs: Yes (Glasses) Physical Exam Vital Signs: Last Vital Signs Pulse 88 04/03/25 11:29 Resp 16 04/03/25 11:29 BP 100/60 04/03/25 11:29 Pulse Ox 99 04/03/25 11:29 Oxygen Delivery Method Room Air 04/03/25 11:29 BMI result Body Mass Index 27.5 Assessment & Plan Assessment & Plan (1) Compression fracture of L1 lumbar vertebra: Code(s): S32.010A - Wedge compression fracture of first lumbar vertebra, initial encounter for closed fracture Category: Medical Plan Plan Patient was informed and verbally consented to the use of an ambient scribe for clinic note documentation during this visit. 1. Vertebral Compression Fracture - Plan to perform a DEXA scan to assess for osteoporosis. - Consider kyphoplasty if osteoporosis is confirmed, potentially under local anesthesia or light sedation. - Coordinate with application specialist regarding anticoagulation management for potential surgical intervention. 2. Suspected Osteoporosis - DEXA scan ordered to confirm diagnosis. - If confirmed, refer to endo/rheum for treatment 3. Congestive Heart Failure - Consideration of patient's cardiac status in planning any surgical intervention. 4. Atrial Fibrillation - Management of anticoagulation therapy with warfarin is crucial. - Coordination with application specialist for safe surgical planning; ?bridge with lovenox. Discussion Notes I discussed with the patient the findings of the CT scan, which showed a compression fracture of the L1 and L2 vertebral bodies. We talked about the potential for osteoporosis and the need for a DEXA scan to confirm this diagnosis. I explained the option of kyphoplasty, which could be performed under local anesthesia or light sedation, and the importance of managing anticoagulation therapy with the application specialist's input. Patient Instructions - Schedule and complete the DEXA scan as ordered. - Follow up with the application specialist to discuss anticoagulation management for potential surgery. Coding Level of Care Code Est Pt Level 4 (58270) Diagnoses Compression fracture of L1 lumbar vertebra S32.010A
[2025-04-03 11:29] VITALS: BP 100/60; PULSE 88; RESP 16; O2SAT 99; BMI 27.5
--- OUTSIDE RECORDS SUMMARY | 2025-04-03 11:50 | XMS_ITS | Patient Health Record ---
Author Organization [facility] Billing Info Address [address] [place] [address] Care Team Providers Care Game And Fish Protector Name Role Phone ALIYA STRICKLAND Unavailable [phone] Reason For Referral No Information Medications Medication [...] Problem Status W/U Status Risk Notes Problem 190847338 Presence of card iac pacemaker (Z95.0) Active confirmed Problem 71177061 Venous insuffici ency (I87.2) Active confirmed Problem 327949514 BMI 29.0-29.9,ad ult (Z68.29) Active confirmed Problem 770715141 assisted curren t use of anticoagulant (Z79.01) Active confirmed Problem 685646395 Atrial fibrillat ion and flutter (I48.91) Active confirmed Problem 83750139 SSS (sick sinus syndrome) (I49.5) Active confirmed Problem 511423663 High risk medica tion use (Z79.899) Active confirmed Problem 032825259 Pure hypercholesterolemia (E78.00) Active confirmed Plan Of Treatment No Information Insurance Providers Payer Name Payer Address Payer Phone Subscriber Number Group Number Insured Name Patient Relationship to Insured Coverage Start Date Coverage End Date MEDICARE [place] PART B [address] [facility] CAIN DIMAS [id number] Zander Celestin Self - patient is the insured 1 0 UNICARE DOS PRIOR TO [id number] [address] [place], [place] [id number] Zander Celestin Self - patient is the insured 1 0 Medical (General) History Medical History History ICD Code Atrial fibrillation Atrial flutter High risk medications Sick sinus syndrome or Bradycardia s/p Pacemaker Venous insufficiency Encounter for long-term (current) use of 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s Surgical History Surgery Date(Month/Year) Cardiac pacemaker 2008 Ablasion
--- OUTSIDE RECORDS SUMMARY | 2025-04-03 11:50 | XMS_ITS | Patient Health Record ---
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 Name Role Phone Romain Glez Primary Care Provider Bel Cobos Unavailable [phone] Allergies Allergen (clinical drug ingredient) Drug/Non Drug [...] Once a day; Duration: 30 day(s) Active Immunizations Vaccine Route Administration Date Status Comme nts Influenza Unknown 05/10/2024 Administered Social History Tobacco Use: Social History Observation [...] W/U Status Risk Notes Problem Atherosclerosis of [place] artery of both lower extremities, with unspecified presence of clinical manifestation (I70.203) Active confirmed Q7(A), Q8(2B), Q9(1B,2C) Vital Signs Blood pressure diastolic 65 mm Hg 04/03/2025 Height 6 ft 3 in in 04/03/2025 Blood pressure systolic 128 mm Hg 04/03/2025 Weight 220 lbs 04/03/2025 BMI 27.5 kg/m2 04/03/2025 Procedures Procedure Date Ordered Date Performed Result Body Sit e 93955-NZTHYYK NAIL, 6 OR MORE 12/13/2024 N/A 22876-YCEV SKIN LESIONS, 2 TO 4 12/13/2024 N/A 50077-LPBSFNQ NAIL, 6 OR MORE 04/03/2025 N/A 04740-WWYK SKIN LESIONS, 2 TO 4 04/03/2025 N/A Encounters Encounter Location Date Provider Diagnosis [facility] [address] [address] 12/13/2024 Bel Beatty Atherosclerosis of [place] artery of both lower extremities, with unspecified presence of clinical manifestation I70.203 ; Tinea unguium B35.1 ; Pain in right toe(s) M79.674 and Pain in left toe(s) M79.675 [facility] [address] 04/03/2025 Bel Beatty Atherosclerosis of [place] artery of both lower extremities, with unspecified presence of clinical manifestation I70.203 ; Tinea unguium B35.1 ; Pain in right toe(s) M79.674 and Pain in left toe(s) M79.675 Assessments Encounter Date Diagnosis (ICD Code) Assessment Notes Treatment Notes Treatment Clinical Notes Section Notes 12/13/2024 Atherosclerosis of [place] artery of both lower extremities, with unspecified presence of clinical manifestation (ICD-10 - I70.203) Q7(A), Q8(2B), Q9(1B,2C) 04/03/2025 Atherosclerosis of [place] artery of both lower extremities, with unspecified presence of clinical manifestation (ICD-10 - I70.203) Q7(A), Q8(2B), Q9(1B,2C) 04/03/2025 Tinea unguium (ICD-10 - B35.1) 12/13/2024 Tinea unguium (ICD-10 - B35.1) 12/13/2024 Pain in right toe(s) (ICD-10 - M79.674) 04/03/2025 Pain in right toe(s) (ICD-10 - M79.674) 12/13/2024 Pain in left toe(s) (ICD-10 - M79.675) 04/03/2025 Pain in left toe(s) (ICD-10 - [...] X ray : Foot, right 3V 06/27/2019 97297-QJAXSPD NAIL, 6 OR MORE 12/13/2024 31940-XISIOOR NAIL, 6 OR MORE 04/03/2025 98562- Debride <25 sq cm 08/18/2023 55203-VBCLYBF SKIN/TISSUE 01/21/2020 70389-HQJG SKIN LESIONS, 2 TO 4 12/14/19 92273-QFZE SKIN LESIONS, 2 TO 4 04/03/20 25 87945-OYHPOXMG OF HEMATOMA/FLUID 023 Next Appt Details Provider Name:Bel Kramer alyson, 07/15/2025 09:15:00 AM, [address], [place], [address], Insurance Providers Payer Name Payer Address Payer Phone Subscriber Number Group Number Insured Name Patient Relationship to Insured Coverage Start Date Coverage End Date Medicare National Govt Sv[employer] [address] [place] [address] [phone] [id number] Zander Espinal Self - patient is the insured [facility] [address] [place] [address] [phone] [id number] KylieGaston villaer Self - patient is the insured Medical (General) History Medical History History ICD Code Heart Disease Arthritis Back,Hip,and Knee pain CAD (Cholesterol) Cataracts Chicken pox Heart disease Hiatal hernia High blood pressure Numbness Poor circulation sinusitis Vascular phlebitis (clots) Measles Mumps Joint implants/screws Surgical History Surgery Date(Month/Year) Pacemaker 11/25/08 Heart Ablations 2006,2007 HT L2nd, Skin Ulcer L 02/07/2020 cataracts Hospitalization History Reason Date(Month/Year) Impacted bowls 04/02/2025
== END 2025-04-03 11:59 | disposition home or self-care (01) ==
LOC: HO.PMC 10:56
PROVIDERS: PCP Nurse Practitioner Family; Visit Provider Internal Medicine
DX: S32.010A Wedge compression fracture of first lumbar vertebra, initial encounter for closed fracture (principal)
CPT/HCPCS: 99214

== ENCOUNTER → 2025-04-03 10:54 | Outpatient (BNVA) | payer MEDICARE, OTHER, SELFPAY | PROVIDERS: PCP Nurse Practitioner Family; Visit Provider Internal Medicine | DX: S32.010D Wedge compression fracture of first lumbar vertebra, subsequent encounter for fracture with routine healing (principal) | CPT/HCPCS: 99212 ==

== ENCOUNTER 2025-04-11 11:40 | Outpatient (AMB) | payer MEDICARE, OTHER, SELFPAY ==
--- NOTE | 2025-04-11 11:52 | A.OFFVIS_ITS ---
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 Accompanied by: Daughter Allergies gabapentin Allergy (Verified 04/11/25 12:01) Rash Medication List - Last Reconciled 04/11/25 by Chetna Armstrong MD acetaminophen 1,000 mg PO Q6H PRN atorvastatin 40 mg PO BEDTIME clotrimazole-betamethasone 1-0.05 % 1 appl topical BID finasteride (Proscar) 5 mg PO DAILY 90 days furosemide 40 mg PO BID magnesium 500 mg PO DAILY menthol 8% (Stopain) ea topical metoprolol succinate ER 25 mg PO DAILY spironolactone 25 mg PO DAILY tramadol 50 mg PO TID PRN 10 days warfarin See Protocol 4MG MWF/2MG X 4 DAYS; 1-2 TABS DAILY PER INR PER ANTICOAG =60 TABS/ MONTH =180TABS 3 MONTH REFILL HPI Comments Details: 04/11/25-- History of Present Illness The patient is an 89-year-old male presenting with a follow-up for epididymitis. The patient was previously treated with antibiotics for epididymitis, but reports persistent testicular pain despite completing the antibiotic course. The pain is described as a burning sensation in the groin area, which is itchy and uncomfortable. The patient also reports intermittent pain on the side, which is exacerbated by sitting and is associated with a bulge, suggestive of hernias. The patient has a history of hiatal and umbilical hernias, which have been present for several years with prior evaluation by General surgery. Left renal stone was noted on imaging. We will monitor. Plan- Lotrimin cream use PRN to groin. On examination testicles are with normal palpation there is mild tenderness to the right testicle with palpation no evidence of persistent infection. I have discussed that he may have chronic testicular pain and can use Tylenol PRN. Proscar 5 mg daily for BPH. Results: US Scrotum:02/20/25 Suspected right epididymoorchitis with mildly complex hydrocele. On the prior examination, the right testicle appeared uniform in echotexture, today it appears more heterogeneous suggesting progression of epididymitis to epididymal orchitis. However, blood flow does not appear increased which softens the diagnosis. Correlate clinically. Left varicocele. On the prior ultrasound images with varicocele were mislabeled as right. Minimal microlithiasis in the left testicle. Imaging: CTAP 1. 2 mm nonobstructing left renal calculus. No hydronephrosis. 2. Irregularly-shaped hyperdense focus which appears to be within the lumen of the bladder which measures approximately 2.1 x 1.0 x 2.2 cm. PSA results--- 06/28--1.3 04/29--3.2 10/28--5.7 PFS Medical History Tachy-garrison syndrome Hypertension, essential, benign Hyperlipidemia Atrial fibrillation Osteoarthritis Pacemaker (~2008) Current use of anticoagulant therapy Surgical History History of colonoscopy History of eye surgery History of appendectomy Status post left foot surgery (~02/2020) Amputated toe of left foot History of cardiac pacemaker History of cardiac radiofrequency ablation (RFA) Family History Father No problems noted. Mother No problems noted. Social History Household Members: Spouse Housing: House Do you presently have visiting nurse or other home services: No Alcohol intake: current Alcohol intake frequency: a few times a week Alcohol type: beer Patient Tobacco Use Status: Former Tobacco user Years Smoked: 15 e-Cigarette/Vaping Use: Never Used Advance Directives Date on File: 09/27/22 service: No Current occupational status: retired Hearing needs: No Vision needs: Yes (Glasses) Review of Systems Const All systems reviewed & are unremarkable except as noted in HPI and below Reports no additional complaints Eyes Reports no additional complaints ENT Reports no additional complaints Card Reports no additional complaints Resp Reports no additional complaints GI Reports no additional complaints Reports as per HPI Musc Reports no additional complaints Skin/Breast Reports system reviewed and no additional complaints, except as documented Neuro Reports no additional complaints Psych Reports no additional complaints Endo Reports no additional complaints Ike/Lymph Reports no additional complaints Aller/Immun Reports no additional complaints Assessment & Plan Assessment & Plan (1) Testicular pain, right: Code(s): N50.811 - Right testicular pain Category: Medical (2) Enlarged prostate: Code(s): N40.0 - Benign prostatic hyperplasia without lower urinary tract symptoms Category: Medical (3) Kidney stone on left side: Code(s): N20.0 - Calculus of kidney Category: Medical (4) BPH with elevated PSA: Code(s): N40.0 - Benign prostatic hyperplasia without lower urinary tract symptoms; R97.20 - Elevated prostate specific antigen [PSA] Category: Medical Plan Plan- Lotrimin cream use PRN to groin. On examination testicles are with normal palpation there is mild tenderness to the right testicle with palpation no evidence of persistent infection. I have discussed that he may have chronic testicular pain and can use Tylenol PRN. Proscar 5 mg daily for BPH. Medications: New clotrimazole-betamethasone 1-0.05 % apply to groin prn itching and redness 1 appl topical BID 45 grams 0RF finasteride (Proscar) 5 mg PO DAILY 90 tabs 3RF Coding Level of Care Code Est Pt Level 4 (97679) Complex EM visit Add On G2211 Diagnoses Testicular pain, right N50.811 Enlarged prostate N40.0 Kidney stone on left side N20.0 BPH with elevated PSA N40.0; R97.20
--- OUTSIDE RECORDS SUMMARY | 2025-04-11 13:21 | XMS_ITS | Patient Health Record ---
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 (Z79.01) Active confirmed Problem 209875720 Atrial fibrillat ion and flutter (I48.91) Active confirmed Problem 65939909 SSS (sick sinus syndrome) (I49.5) Active confirmed Problem 224801048 High risk medica tion use (Z79.899) Active confirmed Problem 930968697 Pure hypercholesterolemia (E78.00) Active confirmed Plan Of Treatment No Information Insurance Providers Payer Name Payer Address Payer Phone Subscriber Number Group Number Insured Name Patient Relationship to Insured Coverage Start Date Coverage End Date [place]ARE [place] PART B [address] [facility] [id number] Zander Celestin Self - patient is the insured 1 0 UNICARE DOS PRIOR TO [id number] [address] [place], [place] [id number] Zander Celestin Self - patient is the insured 1 0 Medical (General) History Medical History History ICD Code Atrial fibrillation Atrial flutter High risk medications Sick sinus syndrome or Bradycardia s/p Pacemaker Venous insufficiency Encounter for long-term (current) use of 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s Surgical History Surgery Date(Month/Year) Cardiac pacemaker 2008 Ablasion
--- OUTSIDE RECORDS SUMMARY | 2025-04-11 13:21 | XMS_ITS | Patient Health Record ---
Author Organization [facility] Address [address] [place] [address] Care Team Providers Care Facilities Specialist Name Role Phone Romain Glez Primary Care Provider Bel Cobos Unavailable [phone] Allergies Allergen (clinical drug ingredient) Drug/Non Drug [...] atherosclerosis of arteries of lower limbs (disorder) ([id number] ) Atherosclerosis of three [place] artery of both lower extremities, with unspecified presence of clinical manifestation (I70.203) Active confirmed Q7(A), Q8(2B), Q9(1B,2 C) Vital Signs Blood pressure diastolic 65 mm Hg 04/03/2025 Height 6 ft 3 in in 04/03/2025 Blood pressure systolic 128 mm Hg 04/03/2025 Weight 220 lbs 04/03/2025 BMI 27.5 kg/m2 04/03/2025 Procedures Procedure Date Ordered Date Performed Result Body Sit e 01558-IAUKVAY NAIL, 6 OR MORE 12/13/2024 N/A 25340-TRZP SKIN LESIONS, 2 TO 4 12/13/2024 N/A 66375-MZKWHOI NAIL, 6 OR MORE 04/03/2025 N/A 72543-KLPW SKIN LESIONS, 2 TO 4 04/03/2025 N/A Encounters Encounter Location Date Provider Diagnosis [address] [address] 12/13/2024 Bel Beatty Atherosclerosis of three [place] artery of both lower extremities, with unspecified presence of clinical manifestation I70.203 ; Tinea unguium B35.1 ; Pain in right toe(s) M79.674 and Pain in left toe(s) M79.[address] [address] 04/03/2025 Bel Beatty Atherosclerosis of three [place] artery of both lower extremities, with unspecified presence of clinical manifestation I70.203 ; Tinea unguium B35.1 ; Pain in right toe(s) M79.674 and Pain in left toe(s) M79.[address] [address] 04/10/2025 Bel Beatty Assessments Encounter Date Diagnosis (ICD Code) Assessment Notes Treatment Notes Treatment Clinical Notes Section Notes 12/13/2024 Atherosclerosis of three [place] artery of both lower extremities, with unspecified presence of clinical manifestation (ICD-10 - I70.203) Q7(A), Q8(2B), Q9(1B,2C) 04/03/2025 Atherosclerosis of three [place] artery of both lower extremities, with unspecified [...] X ray : Foot, right 3V 06/27/2019 84782-DGYDVGQ NAIL, 6 OR MORE 12/13/2024 26516-XIOZBUW NAIL, 6 OR MORE 04/03/2025 62916- Debride <25 sq cm 08/18/2023 09093-DQMDYCO SKIN/TISSUE 01/21/2020 66827-FCAB SKIN LESIONS, 2 TO 4 12/14/19 12303-BTOR SKIN LESIONS, 2 TO 4 04/03/20 70295-QESRHRBA OF HEMATOMA/FLUID 023 Next Appt Details Provider Name:Bel Kramer alyson, 07/29/2025 11:00:00 AM, [address] [facility], [place], [address], Insurance Providers Payer Name Payer Address Payer Phone Subscriber Number Group Number Insured Name Patient Relationship to Insured Coverage Start Date Coverage End Date Medicare National Govt Svcs Inc [address] [place] [address] [id number] Zander Espinal Self - patient is the insured [employer] [address] [place] [address] [id number] Zander Espinal Self - patient is [...]
== END 2025-04-11 12:33 | disposition home or self-care (01) ==
LOC: HO.HUSH 11:41
PROVIDERS: PCP Nurse Practitioner Family; Visit Provider Urology
DX: N50.811 Right testicular pain (principal); N40.0 Benign prostatic hyperplasia without lower urinary tract symptoms; N20.0 Calculus of kidney; R97.20 Elevated prostate specific antigen [PSA]
CPT/HCPCS: 99214; G2211

== ENCOUNTER → 2025-04-11 11:40 | Outpatient (BNVA) | payer MEDICARE, OTHER, SELFPAY | PROVIDERS: PCP Nurse Practitioner Family; Visit Provider Urology | DX: N50.811 Right testicular pain (principal); N40.0 Benign prostatic hyperplasia without lower urinary tract symptoms; N20.0 Calculus of kidney; R97.20 Elevated prostate specific antigen [PSA]; Z87.438 Personal history of other diseases of male genital organs | CPT/HCPCS: 99212 ==

== ENCOUNTER 2025-04-15 09:42 | Outpatient (AMB) | payer MEDICARE, OTHER, SELFPAY ==
[2025-04-15 09:46] VITALS: BP 80/52; PULSE 86; BMI 25.0
--- NOTE | 2025-04-15 09:46 | A.OFFVIS_ITS ---
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: No Recovery Room Rn: Recovery Room Rn Present Allergies gabapentin Allergy (Verified 04/15/25 09:49) Rash Medication List - Last Reconciled 04/15/25 by Trice Mary, ELEMENTARY SCHOOL PRINCIPAL-C acetaminophen 1,000 mg PO Q6H PRN atorvastatin 40 mg PO BEDTIME clotrimazole-betamethasone 1-0.05 % 1 appl topical BID finasteride (Proscar) 5 mg PO DAILY 90 days finasteride (Proscar) 5 mg PO DAILY furosemide 40 mg PO ONCE magnesium 500 mg PO DAILY menthol 8% (Stopain) ea topical metoprolol succinate ER 25 mg PO DAILY spironolactone 25 mg PO DAILY tramadol 50 mg PO TID PRN 10 days warfarin See Protocol 4MG MWF/2MG X 4 DAYS; 1-2 TABS DAILY PER INR PER ANTICOAG =60 TABS/ MONTH =180TABS 3 MONTH REFILL HPI HPI 4 mth f/up: Details: Zander is an 89-year-old male past medical history of hypertension, hyperlipidemia, atrial fibrillation with prior ablation and recurrent AFib which is chronic, diastolic heart failure, [place] single-chamber pacemaker who presents for follow-up. Today he reports that he has been having back discomfort. He reports having herniated discs and 2 compression fractures. His pain has been gradually improving with use of xwja-iqs-aumgfhk pain leaving products. He has seen a surgeon and they may consider surgical intervention pending his cardiac risk evaluation. Daughter is present and they are unsure if he would pursue surgery at this time. No chest discomfort at rest or with activity. No shortness of breath, PND, orthopnea or edema. He does have general weakness and has lost significant weight recently. He relates this to do not eating well when he was receiving meals on wheels. He says the meals were in edible. He now is eating much better as his is back to cooking. He ambulates short distances with his walker and cane. He is in a wheelchair today. Taking all meds as directed. No bleeding issues with Coumadin use. [facility] Medical History Tachy-garrison syndrome Hypertension, essential, benign Hyperlipidemia Atrial fibrillation Osteoarthritis Pacemaker (~2008) Current use of anticoagulant therapy Surgical History History of colonoscopy History of eye surgery History of appendectomy Status post left foot surgery (~02/2020) Amputated toe of left foot History of cardiac pacemaker History of cardiac radiofrequency ablation (RFA) Family History Father No problems noted. Mother No problems noted. Social History Household Members: Spouse Housing: House Do you presently have visiting nurse or other home services: No Alcohol intake: current Alcohol intake frequency: a few times a week Alcohol type: beer Patient Tobacco Use Status: Former Tobacco user Years Smoked: 15 e-Cigarette/Vaping Use: Never Used Advance Directives Date on File: 09/27/22 service: No Current occupational status: retired Hearing needs: No Vision needs: Yes (Glasses) Review of Systems Const All systems reviewed & are unremarkable except as noted in HPI and below Reports weakness and Reports weight loss ENT Reports dizziness Card Denies chest pain, Denies chest pain at rest, Denies chest pain with activity, Denies rapid heart rate, Denies pedal edema, Denies edema, Denies leg edema, Denies lightheadedness, Denies palpitations, Denies dyspnea, Denies dyspnea on exertion and Denies orthopnea Resp Denies cough, Denies dyspnea and Denies dyspnea on exertion GI Denies hematochezia and Denies change in stool character Musc Details: back pain for compression fx and herniated discs Reports abnormal gait, Denies limited range of motion, Denies muscle cramps, Reports muscle weakness, Denies numbness, Denies radiating pain into limb, Denies stiffness and Denies tingling Neuro Reports abnormal gait, Reports dizziness, Denies numbness, Denies tingling and Reports weakness Endo Denies palpitations Physical Exam Vital Signs: Last Vital Signs Pulse 86 04/15/25 09:46 BP 80/52 L 04/15/25 09:46 BMI result Body Mass Index 25.0 Const Other: sitting in wheelchair General: cooperative, healthy appearing, comfortable and no acute distress Orientation/consciousness: patient oriented x3 Neck Neck: Yes normal visual inspection Resp Effort & Inspection: normal respiratory effort Auscultation: clear to auscultation bilaterally, no rales, no rhonchi and no wheezes Cardio Rate: regular rate Rhythm: abnormal rhythm Heart sounds: S1 normal heart sound present, S2 normal heart sound present, no gallops, no murmurs and no rubs Neuro General: patient oriented x3 Extrem General: Yes normal to inspection and No no pedal edema Psych Appearance: grossly normal Mental Status: mental status grossly normal Speech and movement: Normal speech and movement present Office Procedures EKG Details: Today, read by me, atrial fibrillation, cant exclude prior anterior infarct, rate 86, Qtc 471ms 98040-Chckcfmvaqaeqfzne, Complete Assessment & Plan Assessment & Plan (1) Atrial fibrillation: Code(s): I48.91 - Unspecified atrial fibrillation Category: Medical Plan: History of atrial fibrillation with cardioversion and prior ablation in past. He then had recurrent atrial fibrillation which is now chronic. He is treated with heart rate control using metoprolol. EKG done today showing atrial fibrillation, rate 86. He is on Coumadin for anticoagulation, INR goal 2-3. No bleeding issues reported. Follows with [facility]. (2) Chronic diastolic heart failure: Code(s): I50.32 - Chronic diastolic (congestive) heart failure Category: Medical Plan: History of chronic diastolic heart failure. Last echocardiogram 08/03/2024 showed EF 55-60%, basal inferior akinetic, normal RV size and function, ascending aorta 3.8 cm. He does not appear fluid overloaded on exam. He has lost weight recently due to poor p.o. intake. He has had some hypotension and his Lasix was recently decreased. His blood pressure is low today. Will reduce Aldactone to 12.5 mg daily. Continue Lasix 40 mg once daily. Signs and symptoms of heart failure reviewed with them. Instructed on home blood pressure checks and call if systolic is reading less than 100. (3) Hypertension, essential, benign: Code(s): I10 - Essential (primary) hypertension Category: Medical Plan: Blood pressure goal less than 130/80. Blood pressure has been running on the low side with his recent weight loss. He had a recent reduction in his metoprolol from 50 mg down to 25 mg daily. He had reduction in his Lasix from 40 mg b.i.d. down to once daily. Initial blood pressure today 80/52 when checked by DAVE. 90/58 when rechecked by me. Will have him reduce Aldactone from 25 mg daily down to 12.5 mg daily. Continue periodic home blood pressure checks. Calling if systolic less than 100. (4) Pacemaker: Onset Date: ~2008 Comment: (Pacemaker SCPP- [facility] - Initial DCPP 2008, replaced/SCPP 2017) Code(s): Z95.0 - Presence of cardiac pacemaker Category: Medical Plan: [employer] single-chamber pacemaker in place. Will arrange for office interrogation next visit. Home monitoring in use. Recent remote interrogation shows battery 5.7 years, V paces 15% (5) Hyperlipidemia: Code(s): E78.5 - Hyperlipidemia, unspecified Category: Medical Plan: [place] LDL goal less than 100. This is followed by PCP. Continue atorvastatin. (6) Preop cardiovascular exam: Code(s): Z01.810 - Encounter for preprocedural cardiovascular examination Category: Medical Plan: Patient may be preop for lumbar disc surgery in the near future. No definite surgical plans have been set. He did have nuclear stress test 11/02/2023 which showed possible ischemia in the distal part of the lateral/inferior lateral wall. Last echocardiogram 08/03/2024 showed EF 55-60%, basal inferior akinetic. He has no anginal symptoms. He has chronic atrial fibrillation and is on Coumadin for anticoagulation. He is likely intermediate cardiac risk however will review with his primary analytical strategist and add addendum to this note. Plan Time spent on chart review, documentation, interview and assessment Medications: Changed From spironolactone 12.5 mg PO DAILY To spironolactone 12.5 mg (1/2 x 25 mg) PO DAILY 45 tabs 1RF 90 days Coding Level of Care Code Est Pt Level 4 (98608) Complex EM visit Add On G2211 Diagnoses Atrial fibrillation I48.91 Chronic diastolic heart failure I50.32 Hypertension, essential, benign I10 Pacemaker Z95.0 Hyperlipidemia E78.5 Preop cardiovascular exam Z01.810 CPT Codes EKG - CPT: 22326-Folxrypxzugkwsihz, Complete ([id number]) Time Spent (min) 32
--- OUTSIDE RECORDS SUMMARY | 2025-04-15 11:06 | XMS_ITS | Patient Health Record ---
[facility] Address [address] [place] [address] Care Team Providers Care Biochemistry Technologist Name Role Phone Romain Glez Primary Care Provider Bel Cobos Unavailable [phone] Allergies Allergen (clinical drug ingredient) Drug/Non Drug [...] atherosclerosis of arteries of lower limbs (disorder) ([id number] ) 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, with unspecified presence of clinical manifestation (I70.203) Active confirmed Q7(A), Q8(2B), Q9(1B,2 C) Vital Signs Blood pressure diastolic 65 mm Hg 04/03/2025 Height 6 ft 3 in in 04/03/2025 Blood pressure systolic 128 mm Hg 04/03/2025 Weight 220 lbs 04/03/2025 BMI 27.5 kg/m2 04/03/2025 Procedures Procedure Date Ordered Date Performed Result Body Sit e 29815-XHMGTZV NAIL, 6 OR MORE 12/13/2024 N/A 83281-ICTB SKIN LESIONS, 2 TO 4 12/13/2024 N/A 02374-VWWBTDA NAIL, 6 OR MORE 04/03/2025 N/A 60412-ZLED SKIN LESIONS, 2 TO 4 04/03/2025 N/A Encounters Encounter Location Date Provider Diagnosis [address] [address] 12/13/2024 Bel Beatty 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, with unspecified presence of clinical manifestation I70.203 ; Tinea unguium B35.1 ; Pain in right toe(s) M79.674 and Pain in left toe(s) M79.[address] [address] 04/03/2025 Bel Beatty 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, with unspecified presence of clinical manifestation I70.203 ; Tinea unguium B35.1 ; Pain in right toe(s) M79.674 and Pain in left toe(s) M79.[address] [address] 04/10/2025 Bel Beatty Assessments Encounter Date Diagnosis (ICD Code) Assessment Notes Treatment Notes Treatment Clinical Notes Section Notes 12/13/2024 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, with unspecified presence of clinical manifestation (ICD-10 - I70.203) Q7(A), Q8(2B), Q9(1B,2C) 04/03/2025 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, with unspecified [...] X ray : Foot, right 3V 06/27/2019 49058-DKHROVY NAIL, 6 OR MORE 12/13/2024 39335-CTAQLBC NAIL, 6 OR MORE 04/03/2025 37300- Debride <25 sq cm 08/18/2023 39580-XYGVIJH SKIN/TISSUE 01/21/2020 80969-DAPI SKIN LESIONS, 2 TO 4 12/14/19 43162-XBWT SKIN LESIONS, 2 TO 4 04/03/20 31841-FCSCKRLE OF HEMATOMA/FLUID 023 Next Appt Details Provider Name:Bel Kramer alyson, 07/29/2025 11:00:00 AM, [address] [facility], [place], [address], Insurance Providers Payer Name Payer Address Payer Phone Subscriber Number Group Number Insured Name Patient Relationship to Insured Coverage Start Date Coverage End Date Medicare National Govt Svcs Inc [address] [place] [address] [id number] Zander Espinal Self - patient is the insured [employer]) [address] [place] [address] [phone] [id number] Zander Espinal Self - patient is [...]
--- OUTSIDE RECORDS SUMMARY | 2025-04-15 11:07 | XMS_ITS | Patient Health Record ---
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) Active confirmed Problem 653582517 Atrial fibrillat ion and flutter (I48.91) Active confirmed Problem 66114794 SSS (sick sinus syndrome) (I49.5) Active confirmed Problem 428534562 High risk medica tion use (Z79.899) Active confirmed Problem 316462646 Pure hypercholesterolemia (E78.00) Active confirmed Plan Of Treatment No Information Insurance Providers Payer Name Payer Address Payer Phone Subscriber Number Group Number Insured Name Patient Relationship to Insured Coverage Start Date Coverage End Date [place] PART B [address] [facility] [employer] [id number] Zander Celestin Self - patient is the insured 1 0 UNICARE DOS PRIOR TO [id number] [address] [place], [place] [id number] Zander Celestin Self - patient is the insured 1 0 Medical (General) History Medical History History ICD Code Atrial fibrillation Atrial flutter High risk medications Sick sinus syndrome or Bradycardia s/p Pacemaker Venous insufficiency Encounter for long-term (current) use of 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s Surgical History Surgery Date(Month/Year) Cardiac pacemaker 2008 Ablasion
== END 2025-04-15 10:27 | disposition home or self-care (01) ==
LOC: HO.HCS 09:43
PROVIDERS: PCP Nurse Practitioner Family; Visit Provider Nurse Practitioner Family
DX: I48.91 Unspecified atrial fibrillation (principal); I50.32 Chronic diastolic (congestive) heart failure; I10 Essential (primary) hypertension; Z95.0 Presence of cardiac pacemaker; E78.5 Hyperlipidemia, unspecified; Z01.810 Encounter for preprocedural cardiovascular examination
CPT/HCPCS: 93010; 99214; G2211

== ENCOUNTER → 2025-04-15 09:42 | Outpatient (BNVA) | payer MEDICARE, OTHER, SELFPAY | PROVIDERS: PCP Nurse Practitioner Family; Visit Provider Nurse Practitioner Family | DX: I48.91 Unspecified atrial fibrillation (principal); I50.32 Chronic diastolic (congestive) heart failure; Z95.0 Presence of cardiac pacemaker; E78.5 Hyperlipidemia, unspecified; Z01.810 Encounter for preprocedural cardiovascular examination; Z79.01 Long term (current) use of 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s; I10 Essential (primary) hypertension | CPT/HCPCS: 93005; 99212 ==

== ENCOUNTER 2025-04-26 10:17 | Outpatient (AMB) | payer MEDICARE, OTHER, SELFPAY ==
--- NOTE | 2025-04-26 10:18 | MHC.OFFVIS ---
Intake Visit Reasons: discuss options Allergies gabapentin Allergy (Verified 04/30/25 10:35) Rash HPI HPI discuss options: Details: 89-year-old male following up via tele visit regarding compression fracture in the lumbar spine. Since our last meeting, the patient reports that his pain in the lumbar spine has a significantly improved and he is no longer interested in undergoing a kyphoplasty procedure. He also has significant concerns about potential comorbidity of undergoing anesthesia and a minor surgical procedure. He does have a history of osteopenia and is ambivalent about proceeding with the bone density scan that was previously ordered out of concern for excessive radiation. [facility] Medical History Tachy-garrison syndrome Hypertension, essential, benign Hyperlipidemia Atrial fibrillation Osteoarthritis Pacemaker (~2008) Current use of anticoagulant therapy Surgical History History of colonoscopy History of eye surgery History of appendectomy Status post left foot surgery (~02/2020) Amputated toe of left foot History of cardiac pacemaker History of cardiac radiofrequency ablation (RFA) Family History Father No problems noted. Mother No problems noted. Social History Household Members: Spouse Housing: House Do you presently have visiting nurse or other home services: No Alcohol intake: current Alcohol intake frequency: a few times a week Alcohol type: beer Patient Tobacco Use Status: Former Tobacco user Years Smoked: 15 e-Cigarette/Vaping Use: Never Used Advance Directives Date on File: 09/27/22 service: No Current occupational status: retired Hearing needs: No Vision needs: Yes (Glasses) Telehealth Telehealth Telehealth Platform: [employer] Location of provider rendering services: practice address Location of patient: address on file Patient Identification confirmed using: Name, : Yes Telehealth method: video Patient verbally consented to treatment: Yes Patient verbally consented to billing insurance company: Yes Patient informed of any privacy concerns related to visit: Yes Minutes spent on Phone/Video with Pt.: 15 Assessment & Plan Assessment & Plan (1) Compression fracture of L1 lumbar vertebra: Code(s): S32.010A - Wedge compression fracture of first lumbar vertebra, initial encounter for closed fracture Category: Medical (2) Osteopenia: Code(s): M85.80 - Other specified disorders of bone density and structure, unspecified site Category: Medical Plan Patient will think about potentially following up with mammography regarding his bone density scan if he decides to proceed. No kyphoplasty indicated at this time since his lumbar pain is adequately controlled. Follow-up p.r.n. Coding Level of Care Code Tele Est Pt Level 3 (44806) Diagnoses Compression fracture of L1 lumbar vertebra S32.010A Osteopenia M85.80
--- OUTSIDE RECORDS SUMMARY | 2025-04-26 10:51 | XMS_ITS | Patient Health Record ---
[facility] Organization [facility] Address [address] [place] [address] Care Team Providers Care Revenue Stamper Name Role Phone Romain Glez Primary Care Provider Bel Cobos Unavailable [phone] Allergies Allergen (clinical drug ingredient) Drug/Non Drug [...] atherosclerosis of arteries of lower limbs (disorder) ([id number] ) Atherosclerosis of douglas artery of both lower extremities, with unspecified presence of clinical manifestation (I70.203) Active confirmed Q7(A), Q8(2B), Q9(1B,2 C) Vital Signs Blood pressure diastolic 65 mm Hg 04/03/2025 Height 6 ft 3 in in 04/03/2025 Blood pressure systolic 128 mm Hg 04/03/2025 Weight 220 lbs 04/03/2025 BMI 27.5 kg/m2 04/03/2025 Procedures Procedure Date Ordered Date Performed Result Body Sit e 25122-QOOLZRP NAIL, 6 OR MORE 12/13/2024 N/A 87471-ISON SKIN LESIONS, 2 TO 4 12/13/2024 N/A 45213-KERCQGP NAIL, 6 OR MORE 04/03/2025 N/A 73288-XKII SKIN LESIONS, 2 TO 4 04/03/2025 N/A Encounters Encounter Location Date Provider Diagnosis [address] [address] 12/13/2024 Bel Beatty Atherosclerosis of douglas artery of both lower extremities, with unspecified presence of clinical manifestation I70.203 ; Tinea unguium B35.1 ; Pain in right toe(s) M79.674 and Pain in left toe(s) M79.[address] [address] 04/03/2025 Bel Beatty Atherosclerosis of douglas artery of both lower extremities, with unspecified presence of clinical manifestation I70.203 ; Tinea unguium B35.1 ; Pain in right toe(s) M79.674 and Pain in left toe(s) M79.[address] [address] 04/10/2025 Bel Beatty Assessments Encounter Date Diagnosis (ICD Code) Assessment Notes Treatment Notes Treatment Clinical Notes Section Notes 12/13/2024 Atherosclerosis of douglas artery of both lower extremities, with unspecified presence of clinical manifestation (ICD-10 - I70.203) Q7(A), Q8(2B), Q9(1B,2C) 04/03/2025 Atherosclerosis of douglas artery of both lower extremities, with unspecified [...] X ray : Foot, right 3V 06/27/2019 83382-JFQKHCK NAIL, 6 OR MORE 12/13/2024 30622-DXMHLIH NAIL, 6 OR MORE 04/03/2025 58662- Debride <25 sq cm 08/18/2023 69127-VFTQNGH SKIN/TISSUE 01/21/2020 82201-CQWF SKIN LESIONS, 2 TO 4 12/14/19 84738-PQFM SKIN LESIONS, 2 TO 4 04/03/20 30442-KVTKRHUC OF HEMATOMA/FLUID 023 Next Appt Details Provider Name:Bel Kramer alyson, 07/29/2025 11:00:00 AM, [address] [facility], [place], [address], Insurance Providers Payer Name Payer Address Payer Phone Subscriber Number Group Number Insured Name Patient Relationship to Insured Coverage Start Date Coverage End Date Medicare National Govt Svcs Inc [address] [place] [address] [id number] Zander Espinal Self - patient is the insured [employer] [address] [place] [address] [phone] [id number] Zander Espinal Self - patient is [...]
--- OUTSIDE RECORDS SUMMARY | 2025-04-26 10:52 | XMS_ITS | Patient Health Record ---
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) Active confirmed Problem 330081113 Atrial fibrillat ion and flutter (I48.91) Active confirmed Problem 51648472 SSS (sick sinus syndrome) (I49.5) Active confirmed Problem 112203496 High risk medica tion use (Z79.899) Active confirmed Problem 590945423 Pure hypercholesterolemia (E78.00) Active confirmed Plan Of Treatment No Information Insurance Providers Payer Name Payer Address Payer Phone Subscriber Number Group Number Insured Name Patient Relationship to Insured Coverage Start Date Coverage End Date [place] PART B [address] [facility] [place] [id number] Zander Celestin Self - patient is the insured 1 0 UNICARE DOS PRIOR TO [id number] [address] [place], [place] [id number] Zander Celestin Self - patient is the insured 1 0 Medical (General) History Medical History History ICD Code Atrial fibrillation Atrial flutter High risk medications Sick sinus syndrome or Bradycardia s/p Pacemaker Venous insufficiency Encounter for long-term (current) use of 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s Surgical History Surgery Date(Month/Year) Cardiac pacemaker 2008 Ablasion
== END 2025-04-26 10:18 | disposition home or self-care (01) ==
LOC: HO.PMC 10:17
PROVIDERS: PCP Nurse Practitioner Family; Visit Provider Internal Medicine
DX: S32.010A Wedge compression fracture of first lumbar vertebra, initial encounter for closed fracture (principal); M85.80 Other specified disorders of bone density and structure, unspecified site
CPT/HCPCS: 99213

== ENCOUNTER → 2025-05-10 23:59 | Outpatient (BNV) | payer MEDICARE, OTHER, SELFPAY | PROVIDERS: PCP Nurse Practitioner Family; Visit Provider Nurse Practitioner Family | DX: S32.010D Wedge compression fracture of first lumbar vertebra, subsequent encounter for fracture with routine healing (principal); R79.1 Abnormal coagulation profile | CPT/HCPCS: G0179 ==

== ENCOUNTER → 2025-05-23 11:55 | Outpatient (BNVA) | payer MEDICARE, OTHER, SELFPAY | PROVIDERS: PCP Nurse Practitioner Family; Visit Provider Internal Medicine Medical Oncology | DX: I48.20 Chronic atrial fibrillation, unspecified (principal); Z51.81 Encounter for therapeutic drug level monitoring; Z79.01 Long term (current) use of 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s | CPT/HCPCS: 85610; 99211 ==

== ENCOUNTER → 2025-05-28 11:32 | Outpatient (BNVA) | payer MEDICARE, OTHER, SELFPAY | PROVIDERS: PCP Nurse Practitioner Family; Visit Provider Internal Medicine Medical Oncology | DX: I10 Essential (primary) hypertension (principal); I95.9 Hypotension, unspecified; I48.91 Unspecified atrial fibrillation; M54.9 Dorsalgia, unspecified; R60.9 Edema, unspecified; E55.9 Vitamin D deficiency, unspecified; Z13.31 Encounter for screening for depression; Z13.39 Encounter for screening examination for other mental health and behavioral disorders | CPT/HCPCS: 96127; 99212 ==

== ENCOUNTER 2025-05-28 12:55 | Outpatient (AMB) | payer MEDICARE, OTHER, SELFPAY ==
[2025-05-28 13:16] VITALS: BP 124/68; PULSE 62; RESP 16; TEMP 36.8; O2SAT 99; BMI 25.5
--- NOTE | 2025-05-28 13:16 | MHC.PC.OV ---
Vital Signs 05/28/25 13:16 Height 6 ft 3 in Weight 204 lb BMI 25.5 BP 124/68 Blood Pressure Location Lt brachial Position Sitting Respiration 16 Pulse 62 Pulse Source Pulse Oximeter Temp 98.2 F Temp Source Oral Pulse Oximetry (%) 99 Oxygen Delivery Method Room Air Intake Visit Reasons: 4m follow up Corporate Pilot Required: No Accompanied by: Daughter Allergies gabapentin Allergy (Verified 05/28/25 13:47) Rash Medication List - Last Reconciled 05/28/25 by DEAN Gleason acetaminophen 1,000 mg PO Q6H PRN atorvastatin 40 mg PO BEDTIME clotrimazole-betamethasone 1-0.05 % 1 appl topical BID finasteride (Proscar) 5 mg PO DAILY 90 days finasteride (Proscar) 5 mg PO DAILY furosemide 40 mg PO ONCE magnesium 500 mg PO DAILY menthol 8% (Stopain) ea topical metoprolol succinate ER 25 mg PO DAILY spironolactone 12.5 mg (1/2 x 25 mg) PO DAILY 90 days tamsulosin 0.4 mg PO BEDTIME tramadol 50 mg PO TID PRN 15 days warfarin See Protocol 4MG- M/2MG X 6 DAYS; 1-2 TABS DAILY PER INR PER ANTICOAG =60 TABS/ MONTH =180TABS 3 MONTH REFILL Tobacco use date assessed: 05/28/25 Fall risk assessment: No Falls in past year Last assessed Fall Risk: 05/28/25 Dental Screening Dental Screen Date: 05/28/25 Did you have a dental visit in the last 12 months?: Yes Did you have a dental problem in the last 6 months where you did not have access to dental care?: No Was dental information given to patient?: Patient has dentist [facility] Medical History Tachy-garrison syndrome Hypertension, essential, benign Hyperlipidemia Atrial fibrillation Osteoarthritis Pacemaker (~2008) Current use of anticoagulant therapy Surgical History History of colonoscopy History of eye surgery History of appendectomy Status post left foot surgery (~02/2020) Amputated toe of left foot History of cardiac pacemaker History of cardiac radiofrequency ablation (RFA) Family History Father No problems noted. Mother No problems noted. Social History (Reviewed 05/28/25 @ 13:46 by ST[facility]) Household Members: Spouse Housing: House Do you presently have visiting nurse or other home services: No Alcohol intake: current Alcohol intake frequency: a few times a week Alcohol type: beer Patient Tobacco Use Status: Former Tobacco user Years Smoked: 15 e-Cigarette/Vaping Use: Never Used Advance Directives Date on File: 09/27/22 service: No Current occupational status: retired Hearing needs: No Vision needs: Yes (Glasses) Questionnaire PHQ-9 Over the last 2 weeks, how often have you been bothered by any of the following problems? 1. Little interest or pleasure in doing things: not at all 2. Feeling down, depressed, or hopeless: not at all 3. Trouble falling or staying asleep, or sleeping too much: nearly every day 4. Feeling tired or having little energy: nearly every day 5. Poor appetite or overeating: not at all 6. Feeling bad about yourself - or that you are a failure or have let yourself or your family down: not at all 7. Trouble concentrating on things, such as reading the newspaper or watching television: not at all 8. Moving or speaking so slowly that other people could have noticed. Or the opposite - being so fidgety or restless that you have been moving around a lot more than usual: not at all 9. Thoughts that you would be better off or of hurting yourself in some way: not at all Total score: 6 Depression Screening Interpretation: Negative Depression Screening Done: Yes 66224 - PHQ-9 Billing: Yes Source: Developed by Drs. Alan Kim, Mandi Novak, Brendon Barajas and colleagues, with an educational antoni from [employer]. Thrive Questionnaire Date Thrive assessed: 08/21/24 I am a: Patient What is your living situation today?: I have a steady place to live Within the past 12 months, did the food you bought not last and you didn't have the money to get more?: Never true Within the past 12 months, did you worry whether your food would run out before you got money to buy more?: Never true Do you have trouble paying for medicines?: No Do you have trouble getting transportation to medical appointments?: No Do you have trouble paying your heating and electricity bill?: No Do you have trouble taking care of your child, family member or friend?: Yes Do you have trouble with day-to-day activities such as bathing, preparing meals, shopping, managing finances, etc.?: Yes Are you currently unemployed and looking for a job?: No Are you interested in more education?: No Please select the resources that you would like help with: None Currently or been in a relationship where the following occur: No concerns reported THRIVE Score: 0 CHEN-7 AMB Questionnaire CHEN-7 Date CHEN - 7 assessed: 05/28/25 Feeling nervous, anxious, or on edge: 0 = Not at all Not being able to stop or control worryin = Not at all Worrying too much about different things: 0 = Not at all Trouble relaxin = Not at all Being so restless that it is hard to sit still: 0 = Not at all Becoming easily annoyed or irritable: 0 = Not at all Feeling afraid as if something awful might happen: 0 = Not at all Total CHEN-7 score (0-4 normal; 5-9 mild; 10-14 moderate; 15-21 severe): 0 Source: Developed by Drs. Alan Kim, Mandi Novak, Brendon Barajas and colleagues, with an educational antoni from [employer]. CHEN-7 Assessment Billing CHEN-7 Assessment Tool: CHEN-7 Assessment 68331 Physical exam (Primary Care) Vital Signs: Last Vital Signs Temp 98.2 F 05/28/25 13:16 Pulse 62 05/28/25 13:16 Resp 16 05/28/25 13:16 BP 124/68 05/28/25 13:16 Pulse Ox 99 05/28/25 13:16 Oxygen Delivery Method Room Air 05/28/25 13:16 BMI result Body Mass Index 25.5 Tobacco/Smoking Status: Tobacco use Status Tobacco use date assessed 05/28/25 05/28/25 13:18 Patient Tobacco Use Status Former Tobacco user 05/28/25 13:18 e-Cigarette/Vaping Use Never Used 05/28/25 13:18 PHQ-9: PHQ-9 Score PHQ-9: Total score 6 05/28/25 13:18 Depression Screening Interpretation: Negative Thrive Assessment: Date of Thrive Assessment Date Thrive assessed 08/21/24 05/28/25 13:18 Currently or been in a relationship where the following occur: No concerns reported Results AMB INR Fingerstick AMB INR Fingerstick 2.3 Last Edit by Karina Epperson RN on 05/28/25 11:42 HOME METER Coding Level of Care Code Est Pt Level 3 (90363) Diagnoses Vitamin D deficiency E55.9 Hypertension, essential, benign I10 Additional Codes CHEN-7 Assessment Billing - CHEN-7 Assessment Tool: CHEN-7 Assessment 87857 ([id number]) PHQ-9 - 26553 - PHQ-9 Billing: Yes ([id number]) Assessment & Plan Assessment & Plan (1) Vitamin D deficiency: Code(s): E55.9 - Vitamin D deficiency, unspecified Category: Medical (2) Hypertension, essential, benign: Code(s): I10 - Essential (primary) hypertension Category: Medical Plan . Orders: Orders Comprehensive Bryan. Panel Fast Today I10 - Essential (primary) hypertension Vitamin D 25-OH Total Today E55.9 - Vitamin D deficiency, unspecified Complete Blood Count Auto Diff Today I10 - Essential (primary) hypertension TSH reflex Free T4 Today I10 - Essential (primary) hypertension UA CC w/rflx Micro + Cult Today I10 - Essential (primary) hypertension Lipid Panel Today I10 - Essential (primary) hypertension
== END 2025-05-28 13:45 | disposition home or self-care (01) ==
LOC: HO.HMCC 12:56
PROVIDERS: PCP Nurse Practitioner Family; Visit Provider Nurse Practitioner Family
DX: E55.9 Vitamin D deficiency, unspecified (principal); I10 Essential (primary) hypertension

== ENCOUNTER → 2025-05-28 23:59 | Outpatient (BNV) | payer MEDICARE, OTHER, SELFPAY ==
--- NOTE | 2025-06-03 21:41 | MHC.OFFVIS ---
Intake Visit Reasons: Remote device check- [facility] Allergies gabapentin Allergy (Verified 05/28/25 13:47) Rash [facility] Medical History Tachy-garrison syndrome Hypertension, essential, benign Hyperlipidemia Atrial fibrillation Osteoarthritis Pacemaker (~2008) Current use of anticoagulant therapy Surgical History History of colonoscopy History of eye surgery History of appendectomy Status post left foot surgery (~02/2020) Amputated toe of left foot History of cardiac pacemaker History of cardiac radiofrequency ablation (RFA) Family History Father No problems noted. Mother No problems noted. 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 29061-Gmmqej Cardiac Device Interrogation, pacemaker Procedure code (CPT) selection complete Results AMB INR Fingerstick AMB INR Fingerstick 2.3 Last Edit by Karina Epperson RN on 05/28/25 11:42 HOME METER Assessment & Plan Assessment & Plan (1) Pacemaker: Onset Date: ~2008 Comment: (Pacemaker SCPP- [facility] - Initial DCPP 2008, replaced/SCPP 2017) Code(s): Z95.0 - Presence of cardiac pacemaker Category: Medical Plan: Coding Level of Care Code Procedure Only Diagnoses Pacemaker Z95.0 CPT Codes Cardiac Device Check - Cardiac Device 12: 48418-Ccwile Cardiac Device Interrogation, pacemaker ([id number])
== END ==
PROVIDERS: PCP Nurse Practitioner Family; Visit Provider Internal Medicine Cardiovascular Disease
DX: Z45.018 Encounter for adjustment and management of other part of cardiac pacemaker (principal)
CPT/HCPCS: 93294

== ENCOUNTER 2025-06-21 08:37 | Outpatient (REF) | payer MEDICARE, OTHER, SELFPAY ==
--- NOTE | ~2025-06-21 | MM_ITS ---
EXAMINATION: DXA BONE DENSITY AXIAL HISTORY: M85.80 - Other specified disorders of bone density and structure, unspec... TECHNIQUE: [employer] Dual energy absorptiometry (DEXA) of the lumbar spine, total left hip, and femoral neck was performed. COMPARISON: None FINDINGS: The bone mineral density of the lumbar spine is 1.306 g/cm2, corresponding to a T-score of 0.7, and a Z-score of 1.1. This is indicative of normal bone mineral density. The bone mineral density of the left total hip is 0.914 g/cm2, corresponding to a T-score of -1.3, and a Z-score of 0. This is indicative of osteopenia. The bone mineral density of the left femoral neck is 0.820 g/cm2, corresponding to a T-score of -1.9, and a Z-score of -0.4. This is indicative of osteopenia. The bone mineral density of the left forearm is 0.820 g/cm2, corresponding to a T-score of -1.7, and a Z-score of -0.1. This is indicative of osteopenia. FRACTURE RISK: The FRAX index suggests a ten year probability of major osteoporotic fracture of 9.3%, and of hip fracture 3.7%. MM/XR DEXA axial skeleton IMPRESSION: Based on bone mineral density, and according to World Health Organization (WHO) criteria, the diagnosis is consistent with osteopenia based on lowest T score of -1.9 in the left femoral neck. Treatment Recommendations: NOF guidelines recommend consideration for treatment in postmenopausal women and men age 50 and older presenting with the following: -A hip or vertebral (clinical or morphometric) fracture. -T-score less than or equal to -2.5 at the femoral neck or spine after appropriate evaluation to exclude secondary causes. -Low bone mass at the hip or spine and a 10-year fracture probability by FRAX of greater than or equal to 3% for hip fracture or greater than or equal to 20% for major osteoporotic fracture based on the [place] adapted WHO algorithm. Other Recommendations: All treatment decisions require clinical judgment and consideration of individual patient factors, including patient preferences, comorbidities, previous drug use, risk factors not captured in the FRAX model (e.g. frailty, falls, vitamin D deficiency, increased bone turnover, interval significant decline in bone density) and possible under or overestimation of fracture risk by FRAX. Additional medical evaluation for secondary cause of low bone mineral density may be appropriate. FUTURE SCAN RECOMMENDATION: People with diagnosed cases of osteoporosis or at high risk for fracture should have regular bone mineral density tests. For patients eligible for Medicare, routine testing is allowed once every 2 years. The testing frequency can be increased to one year for patients who have rapidly progressing disease, those who are receiving or discontinuing medical therapy to restore bone mass, or have additional risk factors. Statistically, 68% of repeat scans fall within 1 SD (+/- 0.010 g/cm2 for AP spine L1-L4) and 1 SD (+/- 0.012 g/cm2 for femur total) FRAX is a trademark of the [employer] [place] [facility], a World Health Organization (WHO) Collaborating Center. Electronically signed by: Moraima Aceves MD 06/21/2025 10:52 AM DIA
== END 2025-06-21 08:38 | disposition home or self-care (01) ==
LOC: HO.MAMMO 08:37
PROVIDERS: PCP Nurse Practitioner Family; Visit Provider Internal Medicine
DX: Z13.820 Encounter for screening for osteoporosis (principal); M85.89 Other specified disorders of bone density and structure, multiple sites; S32.000A Wedge compression fracture of unspecified lumbar vertebra, initial encounter for closed fracture
CPT/HCPCS: 77080

== ENCOUNTER → 2025-06-21 08:45 | Outpatient (BNV) | payer MEDICARE, OTHER, SELFPAY | PROVIDERS: PCP Nurse Practitioner Family; Visit Provider Radiology Diagnostic Radiology | DX: M85.80 Other specified disorders of bone density and structure, unspecified site (principal) | CPT/HCPCS: 77080 ==